=== PATIENT | female | born 1970 | race Caucasian/White ===

== ENCOUNTER 2020-10-19 15:00 | Outpatient (REF) | payer MEDICARE, OTHER, SELFPAY ==
--- NOTE | 2020-10-19 15:06 | XR_ITS ---
EXAMINATION: XR HIP, LEFT AP pelvis CLINICAL INFORMATION: Left sciatica. COMPARISON: None TECHNIQUE: Two views of the left hip. One view AP pelvis FINDINGS: AP PELVIS: There is normal symmetry of bilateral SI joints and hip joints. No visible acute fracture, dislocation or subluxation seen. The SI joints are symmetrical. LEFT HIP: There is no visible acute fracture, dislocation or subluxation seen. No bony erosive changes. The soft tissues are normal XR/XR hip LT w [id number] IMPRESSION: Unremarkable left hip and a AP pelvis exam.
== END 2020-10-19 15:01 | disposition home or self-care (01) ==
LOC: HO.HMGCX 15:00
PROVIDERS: Visit Provider Nurse Practitioner Family
DX: M54.30 Sciatica, unspecified side (principal)
CPT/HCPCS: 73502

== ENCOUNTER 2021-02-18 00:49 | Emergency (ER) | payer MEDICARE, OTHER, SELFPAY ==
[2021-02-18 01:29] VITALS: BP 159/82; PULSE 62; RESP 18; TEMP 36.7; O2SAT 96; BMI 20.9
[2021-02-18 03:02] VITALS: BP 142/78; PULSE 65; RESP 16; TEMP 36.8; O2SAT 100
--- NOTE | 2021-02-18 03:16 | ED_ITS ---
HPI - Nausea/Vomiting/Diarrhea General Chief complaint: Nausea/Vomiting/Diarrhea Stated complaint: nausea vomiting x 4 days Time Seen by Provider: 02/18/21 03:15 Source: patient Mode of arrival: EMS History of Present Illness HPI Narrative: This is a 50-year-old female without significant past medical history other than having had disc surgery x2, 1st at [facility], and then 2nd at [place] the latter was approximately 3 weeks ago and patient states that she has had poor p.o. intake since that time with noted nausea and vomiting for the past 3 days. She denies any cigarette smoking or alcohol intake but states that she has used THC products the last of which was today. She denies any contaminated food, fevers, abdominal pain, fecal/urinary incontinence. Related Data Previous Rx's Medication Instructions Recorded prednisone 20 mg tablet 20 mg PO DAILY 9 Days #18 tab 10/19/20 Allergies Allergy/AdvReac Type Severity Reaction Status Date / Time duloxetine [From CYMBALTA] Allergy Unknown UNKNOWN Verified 02/18/21 03:48 morphine [MORPHINE] Allergy Unknown HALLUCINATI Verified 02/18/21 03:48 ONS fentanyl [FENTANYL] AdvReac Unknown UNKNOWN Verified 02/18/21 03:48 ketorolac [From TORADOL] AdvReac Unknown UNKNOWN Verified 02/18/21 03:48 Review of Systems Review of Systems: Pertinent positives and negatives as stated in HPI 10 point review of systems is otherwise negative. [facility] Past Medical History Source: nursing notes reviewed Social History Social History Advance Directives: No Advance Directives Information Provided: No Patient : No Physical Exam Vital Signs: Vital Signs: Last Vital Signs Temp 98.2 F 02/18/21 03:02 Pulse 62 02/18/21 04:00 Resp 17 02/18/21 04:00 BP 101/73 02/18/21 04:00 Pulse Ox 100 02/18/21 04:00 Body Mass Index 20.9 VITAL SIGNS: Reviewed. GENERAL: Well developed, well nourished, in no acute distress. HEAD: Normocephalic/atraumatic EYES: PERRLA, EOMI OROPHARYNX: no oral lesions noted, posterior pharynx clear NECK: Supple, no adenopathy LUNGS: Normal breath sounds. No adventitious sounds or accessory muscle use. SpO2<100> CARDIOVASCULAR: Regular rate and rhythm without noted murmurs ABDOMEN: Soft, non-tender, non-distended with bowel sounds. BACK: Well-healed is incision to the lumbar spine without evidence erythema/induration/cellulitis/drainage MUSCULOSKELETAL: No tenderness, deformities, or effusions noted on gross inspection. EXTREMITIES: No cyanosis, clubbing or edema. SKIN: Inspection of the skin reveals no rashes NEUROLOGIC: Alert and oriented x 4. Strength and sensation to light touch were grossly intact x 4. Course Course Course Narrative: This is a 50-year-old female with history and clinical presentation suggestive of possible opioid withdrawal or viral gastroenteritis but doubt C diff. patient provided with Reglan, Benadryl, Zofran, Haldol. Review of all investigations negative for any acute findings other than positive ketones in the urine consistent with patient's history of nausea, vomiting. Suspect this may be a component of gastroenteritis. On re-evaluation patient s till feels nauseous and declining a p.o. trial. Signed out to Dr Jc. MDM - Nausea/Vomiting/Diarrhea Lab Data Result diagrams: 02/18/21 03:47 02/18/21 03:47 Labs: Lab Results 02/18/21 02/18/21 02/18/21 Range/Units 03:05 03:47 03:47 WBC 8.2 (4.8-10.8) X10*3/uL RBC 4.89 (4.20-5.50) X10*6/uL Hgb 13.4 (12.0-16.0) g/dl Hct 42.2 (37-47) % MCV 86.3 (80-98) fL MCH 27.4 (27.0-33.0) pg MCHC 31.8 (31.0-35.0) g/dl RDW 15.3 (11.0-16.0) % Plt Count 524 H (160-400) X10*3/uL MPV 9.8 (9.4-12.3) fL Immature Gran % (Auto) 0.2 (0.0-0.4) % Neut % (Auto) 85.7 H (45-73) % Lymph % (Auto) 10.7 L (20-40) % [place] % (Auto) 2.8 (2-11) % Eos % (Auto) 0.4 (0-4) % Baso % (Auto) 0.2 (0-2) % Lymph # (Auto) 0.9 L (1.2-4.9) X10*3/uL [place] # (Auto) 0.2 (0.1-1.2) X10*3/uL Eos # (Auto) 0.0 (0.0-0.4) X10*3/uL Baso # (Auto) 0.0 (0.0-0.2) X10*3/uL Abs Immat Gran (auto) 0.02 (0.00-0.03) X10*3/uL Absolute Neuts (auto) 7.1 (2.0-8.3) X10*3/uL Absolute Nucleated RBC 0.000 (0.0-0.012) X10*3/uL Nucleated RBC % (auto) 0.0 (0.0-0.2) /100WBC Sodium 142 (135-145) mmol/L Potassium 4.2 (3.3-5.1) mmol/L Chloride 103 (96-108) mmol/L Carbon Dioxide 20 L (22-29) mmol/L Anion Gap 23 H (12-20) BUN 13 (9-16) mg/dL Creatinine 0.83 (0.5-1.4) mg/dL Estim Creat Clear Calc 74.6 Estimated GFR > 60 Random Glucose 99 (60-115) mg/dL Calcium 10.5 H (8.4-10.2) mg/dL Total Bilirubin 0.5 (0.0-1.0) mg/dL AST 21 (5-31) U/L ALT 15 (0-31) U/L Alkaline Phosphatase 85 (39-117) U/L Total Protein 8.6 H (6.5-8.0) g/dL Albumin 5.6 H (3.5-5.0) g/dL Lipase 41 (8-78) U/L Urine Color YELLOW Urine Appearance CLEAR Urine pH 6.5 (5.0-8.0) Ur Specific [place] 1.020 (1.005-1.025) Urine Protein 1+ H (NEG-TRACE) MG/DL Urine Glucose (UA) NEG (NEG) MG/DL Urine Ketones >=80 (NEG) MG/DL Urine Blood NEG (NEG) Urine Nitrite NEG (NEG) Ur Leukocyte Esterase NEG (NEG) Urine RBC 1-4 (0) /HPF Urine WBC 0-2 (0-4) /HPF Ur Squamous Epith Cells 1+ /LPF Urine Bacteria TRACE /LPF Urine Mucus 3+ /LPF Ethyl Alcohol mg/dL 02/18/21 Range/Units 03:47 WBC (4.8-10.8) X10*3/uL RBC (4.20-5.50) X10*6/uL Hgb (12.0-16.0) g/dl Hct (37-47) % MCV (80-98) fL MCH (27.0-33.0) pg MCHC (31.0-35.0) g/dl RDW (11.0-16.0) % Plt Count (160-400) X10*3/uL MPV (9.4-12.3) fL Immature Gran % (Auto) (0.0-0.4) % Neut % (Auto) (45-73) % Lymph % (Auto) (20-40) % [place] % (Auto) (2-11) % Eos % (Auto) (0-4) % Baso % (Auto) (0-2) % Lymph # (Auto) (1.2-4.9) X10*3/uL [place] # (Auto) (0.1-1.2) X10*3/uL Eos # (Auto) (0.0-0.4) X10*3/uL Baso # (Auto) (0.0-0.2) X10*3/uL Abs Immat Gran (auto) (0.00-0.03) X10*3/uL Absolute Neuts (auto) (2.0-8.3) X10*3/uL Absolute Nucleated RBC (0.0-0.012) X10*3/uL Nucleated RBC % (auto) (0.0-0.2) /100WBC Sodium (135-145) mmol/L Potassium (3.3-5.1) mmol/L Chloride (96-108) mmol/L Carbon Dioxide (22-29) mmol/L Anion Gap (12-20) BUN (9-16) mg/dL Creatinine (0.5-1.4) mg/dL Estim Creat Clear Calc Estimated GFR Random Glucose (60-115) mg/dL Calcium (8.4-10.2) mg/dL Total Bilirubin (0.0-1.0) mg/dL AST (5-31) U/L ALT (0-31) U/L Alkaline Phosphatase (39-117) U/L Total Protein (6.5-8.0) g/dL Albumin (3.5-5.0) g/dL Lipase (8-78) U/L Urine Color Urine Appearance Urine pH (5.0-8.0) Ur Specific [place] (1.005-1.025) Urine Protein (NEG-TRACE) MG/DL Urine Glucose (UA) (NEG) MG/DL Urine Ketones (NEG) MG/DL Urine Blood (NEG) Urine Nitrite (NEG) Ur Leukocyte Esterase (NEG) Urine RBC (0) /HPF Urine WBC (0-4) /HPF Ur Squamous Epith Cells /LPF Urine Bacteria /LPF Urine Mucus /LPF Ethyl Alcohol < 10 mg/dL Discharge Plan Discharge Clinical Impression: Gastroenteritis Patient Disposition: Home, Self-Care Instructions: Gastroenteritis (ED) Additional Instructions: Return to the ER for any acute worsening of your symptoms. Prescriptions: No Action prednisone 20 mg tablet 20 mg PO DAILY 9 Days Qty: 18 RF: 0 Referrals: Physician,Unknown [Primary Care Provider] - 2 days
[2021-02-18 03:25] LABS: Glucose Urine UA NEG (NEG); Leukocyte Esterase Urine NEG (NEG); Nitrite Urine NEG (NEG); PH 6.5 (5.0-8.0); Urine Blood NEG (NEG); Urine Ketones >=80 MG/DL (NEG); Urine Protein 1+ MG/DL (NEG-TRACE)
[2021-02-18 03:38] LABS: Appearance Urine CLEAR; Color Urine YELLOW
[2021-02-18] MEDS: diphenhydrAMINE HCL 50 MG/ML VIAL 25 MG IVPUSH (03:49)
[2021-02-18] MEDS: ondansetron HCL 4 MG/2 ML VIAL IVPUSH ×2 (03:49→07:59)
[2021-02-18] MEDS: Metoclopramide HCl 10 MG/2 ML VIAL IVPUSH (03:49)
[2021-02-18] MEDS: 0.9 % Sodium Chloride 2,000 ML 999 ML IV (03:53)
[2021-02-18 03:54] LABS: MANUAL DIFF FLAG NO
[2021-02-18 03:58] LABS: Basophils Percent Auto 0.2 % (0-2); Eosinophils Percent Auto 0.4 % (0-4); Hematocrit 42.2 % (37-47); Hemoglobin 13.4 g/dl (12.0-16.0); Imm Gran Abs Auto 0.02 X10*3/uL (0.00-0.03); Imm Gran Pct Auto 0.2 % (0.0-0.4); Lymphocytes Absolute Auto 0.9 X10*3/uL (1.2-4.9); Lymphocytes Percent Auto 10.7 % (20-40); Mean Corpuscular HGB Conc 31.8 g/dl (31.0-35.0); Mean Corpuscular Hemoglobin 27.4 pg (27.0-33.0); Mean Corpuscular Volume 86.3 fL (80-98); Mean Platelet Volume 9.8 fL (9.4-12.3); Monocytes Absolute Auto 0.2 X10*3/uL (0.1-1.2); Monocytes Percent Auto 2.8 % (2-11); Neutrophils Absolute Auto 7.1 X10*3/uL (2.0-8.3); Neutrophils Percent Auto 85.7 % (45-73); Platelet Count 524 X10*3/uL (160-400); Red Blood Count 4.89 X10*6/uL (4.20-5.50); Red Cell Distribution Width 15.3 % (11.0-16.0); White Blood Count 8.2 X10*3/uL (4.8-10.8)
[2021-02-18 04:00] VITALS: BP 101/73; PULSE 62; RESP 17; O2SAT 100
[2021-02-18 04:09] LABS: Bacteria Urine TRACE /LPF; Mucus Urine 3+ /LPF; Squamous Epithelial Cell Urine 1+ /LPF; WBC Urine 0-2 /HPF (0-4)
[2021-02-18 04:25] LABS: Alanine Aminotransferase 15 U/L (0-31); Albumin Level 5.6 g/dL (3.5-5.0); Alkaline Phosphatase 85 U/L (39-117); Anion Gap 23 (12-20); Aspartate Amino Transferase 21 U/L (5-31); Bilirubin Total 0.5 mg/dL (0.0-1.0); Blood Urea Nitrogen 13 mg/dL (9-16); Calcium 10.5 mg/dL (8.4-10.2); Carbon Dioxide 20 mmol/L (22-29); Chloride 103 mmol/L (96-108); Creatinine Clr Calc Pharmacy 74.6; Estimated Glomerular Filt Rate > 60; Glucose Random 99 mg/dL (60-115); Lipase 41 U/L (8-78); Potassium 4.2 mmol/L (3.3-5.1); Sodium 142 mmol/L (135-145); Total Protein 8.6 g/dL (6.5-8.0)
[2021-02-18 04:26] LABS: Ethanol < 10 mg/dL
[2021-02-18] MEDS: Haloperidol Lactate 5 MG/ML VIAL 2.5 MG IVPUSH (04:57)
[2021-02-18] MEDS: HYDROmorphone HCl 0.5 MG/0.5 ML SYRINGE IVPUSH (07:59)
[2021-02-18 08:06] VITALS: BP 157/82; PULSE 59; RESP 18; O2SAT 98
[2021-02-18] MEDS: HYDROmorphone HCl 1 MG/ML SYRINGE IVPUSH (08:28)
[2021-02-18 08:29] VITALS: BP 137/79; PULSE 59; RESP 19; O2SAT 99
[2021-02-18 08:29] LABS: CDIFF Ag Negative (Negative); CDIFF Internal ctrl Dots and bkg OK (V); CDiff Toxin Negative (Negative)
[2021-02-18 08:49] LABS: Leukocytes Stool Qualitative NEGATIVE (NEGATIVE)
--- NOTE | 2021-02-18 09:03 | PC.NURSE ---
has a ride on the way, nad, skin wpd
--- NOTE | 2021-02-18 09:42 | PC.NURSE ---
vs 133/71 [id number]
== END 2021-02-18 09:42 | disposition home or self-care (01) ==
PROVIDERS: Student in an Organized Health Care Education/Training Program; Emergency Provider Emergency Medicine Emergency Medical Services
DX: K52.9 Noninfective gastroenteritis and colitis, unspecified (principal); R11.2 Nausea with vomiting, unspecified; Z79.899 Other long term (current) drug therapy
CPT/HCPCS: 36415; 80053; 81001; 82077; 83690; 85025; 87045; 87046; 87324; 87449; 89055; 96365; 96375; 96376; 99284; J1170; J1200; J2405; J2765

== ENCOUNTER 2021-04-23 02:17 | Inpatient (IN) | payer MEDICARE, OTHER, SELFPAY ==
--- NOTE | 2021-04-23 02:38 | ED.GENADULT ---
HPI - General Adult General Chief complaint: Psychiatric Symptoms Stated complaint: Drug Use Time Seen by Provider: 04/23/21 02:36 Source: patient and EMS Mode of arrival: EMS Limitations: altered mental status History of Present Illness HPI narrative: Patient is brought to the emergency room by EMS. Patient called because she thought there were 2 persons in her house trying to kill her. EMS did not find anyone in the house. Patient is known to take multiple medications including Dilaudid for chronic back pain. Patient has been seen in this facility for crisis once before. Patient denies suicidal or homicidal ideation, however patient is very paranoid. Related Data Home Medications Medication Instructions Recorded Confirmed bupropion HCl 100 mg tablet,12 hr 1 tab PO QAM 04/23/21 04/23/21 sustained-release clonazepam 1 mg tablet mg PO 04/23/21 04/23/21 hydromorphone 2 mg tablet 0.5 - 1 tab PO Q6H PRN 04/23/21 04/23/21 tizanidine 4 mg tablet 1 tab PO QID PRN 04/23/21 04/23/21 zolpidem 10 mg tablet 0.5 - 1 tab PO BEDTIME PRN 04/23/21 04/23/21 Previous Rx's Medication Instructions Recorded prednisone 20 mg tablet 20 mg PO DAILY 9 Days #18 tab 10/19/20 prochlorperazine 25 mg rectal 25 mg AR Q12H PRN 6 Days #12 ea 02/18/21 suppository (Compazine) Allergies Allergy/AdvReac Type Severity Reaction Status Date / Time duloxetine [From CYMBALTA] Allergy Unknown UNKNOWN Verified 02/18/21 03:48 morphine [MORPHINE] Allergy Unknown HALLUCINATI Verified 02/18/21 03:48 ONS fentanyl [FENTANYL] AdvReac Unknown UNKNOWN Verified 02/18/21 03:48 ketorolac [From TORADOL] AdvReac Unknown UNKNOWN Verified 02/18/21 03:48 Review of Systems Review of Systems: Constitutional : No Weight loss, No Fever, No Chills, No Night Sweats, No Fatigue, No Malaise ENT/Mouth : No Hearing loss, No Ear Pain, No Nasal Congestion, No Sinus Pain, No Hoarseness, No sore throat, No Rhinorrhea, No Swallowing Difficulty Eyes: No Eye Pain, No Swelling, No Redness, No Foreign Body, No Discharge, No Vision Changes Cardiovascular : No Chest Pain, No SOB, No Dyspnea on Exertion, No Orthopnea, No Edema, No Palpitations Respiratory : No Cough, No Sputum, No Wheezing, No Smoke Exposure, No Dyspnea Gastrointestinal : No Nausea, No Vomiting, No Diarrhea, No Constipation, No abdominal Pain, No Hematochezia, No Melena Genitourinary : no irregular bleeding, No Dysuria, No Urinary Frequency, No Hematuria, No Urinary Incontinence, No Urgency, No Flank Pain, No Urinary Flow Changes, No Hesitancy Musculoskeletal : No joint pain, No Myalgias, No Joint Swelling Skin : No Skin Lesions, No rash Neuro : No Weakness, No Numbness, No Paresthesias, No Loss of Consciousness, No Dizziness, No Headache Psych : Very anxious, thinks somebody wants to kill her, thinks people are in her house Heme/Lymph: No Bruising, No Bleeding,No Lymphadenopathy Endocrine : No Polyuria, No Polydipsia, No Temperature Intolerance PMFSH Social History Social History Advance Directives: No Advance Directives Information Provided: Yes Patient : No Physical Exam Vital Signs: Vital Signs: Last Vital Signs Temp 99.1 F 04/23/21 03:05 Pulse 113 H 04/23/21 03:05 Resp 16 04/23/21 03:05 BP 125/70 04/23/21 03:05 Pulse Ox 97 04/23/21 03:05 Body Mass Index 22.6 Const: Other: Appearance: Alert. Very anxious Eyes: Pupils equal, round and reactive to light. ENT: Pharynx normal. Neck: Normal inspection. Neck supple. No lymph nodes noted. No crepitus CVS: Normal heart rate and rhythm. Pulses normal. Normal S1 and S2 Respiratory: No respiratory distress. Breath sounds normal. No Wheezing. No rales Abdomen: Soft and nontender. No rigidity. No distention. good BS x4 Skin: Skin warm and dry. Normal skin color. Normal skin turgor. Extremities: No lower extremity edema. Neuro: no motor deficit. No sensory deficit. Moving all extermities. No slurred speech. Cranial nerves 2-12 grossly intact Medical Decision Making Lab Data Result diagrams: 04/23/21 05:23 04/23/21 05:23 Labs: Lab Results 04/23/21 04/23/21 04/23/21 Range/Units 05:23 05:23 05:23 WBC 9.5 (4.8-10.8) X10*3/uL RBC 3.54 L D (4.20-5.50) X10*6/uL Hgb 9.6 L D (12.0-16.0) g/dl Hct 29.0 L D (37-47) % MCV 81.9 (80-98) fL MCH 27.1 (27.0-33.0) pg MCHC 33.1 (31.0-35.0) g/dl RDW 14.3 (11.0-16.0) % Plt Count 371 D (160-400) X10*3/uL MPV 9.3 L (9.4-12.3) fL Immature Gran % (Auto) 0.2 (0.0-0.4) % Neut % (Auto) 84.6 H (45-73) % Lymph % (Auto) 8.5 L (20-40) % [place] % (Auto) 6.4 (2-11) % Eos % (Auto) 0.0 (0-4) % Baso % (Auto) 0.3 (0-2) % Lymph # (Auto) 0.8 L (1.2-4.9) X10*3/uL [place] # (Auto) 0.6 (0.1-1.2) X10*3/uL Eos # (Auto) 0.0 (0.0-0.4) X10*3/uL Baso # (Auto) 0.0 (0.0-0.2) X10*3/uL Abs Immat Gran (auto) 0.02 (0.00-0.03) X10*3/uL Absolute Neuts (auto) 8.0 (2.0-8.3) X10*3/uL Absolute Nucleated RBC 0.000 (0.0-0.012) X10*3/uL Nucleated RBC % (auto) 0.0 (0.0-0.2) /100WBC Sodium 136 (135-145) mmol/L Potassium 3.5 (3.3-5.1) mmol/L Chloride 100 (96-108) mmol/L Carbon Dioxide 27 (22-29) mmol/L Anion Gap 13 (12-20) BUN 7 L (9-16) mg/dL Creatinine 0.71 (0.5-1.4) mg/dL Estim Creat Clear Calc 87.7 Estimated GFR > 60 Random Glucose 106 (60-115) mg/dL Calcium 8.7 D (8.4-10.2) mg/dL Total Bilirubin 0.3 (0.0-1.0) mg/dL Direct Bilirubin < 0.2 (0.0-0.5) mg/dL AST 11 D (5-31) U/L ALT 8 (0-31) U/L Alkaline Phosphatase 88 (39-117) U/L Total Protein 5.7 L D (6.5-8.0) g/dL Albumin 3.8 D (3.5-5.0) g/dL Ethyl Alcohol < 10 mg/dL Discharge Plan Discharge Clinical Impression: Delusion Prescriptions: No Action prochlorperazine [Compazine] 25 mg suppository 25 mg AR Q12H PRN (Reason: nausea and vomiting) 6 Days Qty: 12 RF: 0 tizanidine 4 mg tablet 1 tab PO QID PRN (Reason: muscle spasm) RF: 0 clonazepam 1 mg tablet PO RF: 0 bupropion HCl 100 mg tablet sustained-release 12 hr 1 tab PO QAM RF: 0 hydromorphone 2 mg tablet 0.5 - 1 tab PO Q6H PRN (Reason: pain) RF: 0 zolpidem 10 mg tablet 0.5 - 1 tab PO BEDTIME PRN (Reason: insomnia) RF: 0 prednisone 20 mg tablet 20 mg PO DAILY 9 Days Qty: 18 RF: 0
[2021-04-23 03:05] VITALS: BP 125/70; PULSE 113; RESP 16; TEMP 37.3; O2SAT 97; BMI 22.6
[2021-04-23 05:27] LABS: Basophils Percent Auto 0.3 % (0-2); Hemoglobin 9.6 g/dl (12.0-16.0); Imm Gran Abs Auto 0.02 X10*3/uL (0.00-0.03); Imm Gran Pct Auto 0.2 % (0.0-0.4); Lymphocytes Absolute Auto 0.8 X10*3/uL (1.2-4.9); Lymphocytes Percent Auto 8.5 % (20-40); MANUAL DIFF FLAG NO; Mean Corpuscular HGB Conc 33.1 g/dl (31.0-35.0); Mean Corpuscular Hemoglobin 27.1 pg (27.0-33.0); Mean Corpuscular Volume 81.9 fL (80-98); Mean Platelet Volume 9.3 fL (9.4-12.3); Monocytes Absolute Auto 0.6 X10*3/uL (0.1-1.2); Monocytes Percent Auto 6.4 % (2-11); Neutrophils Percent Auto 84.6 % (45-73); Platelet Count 371 X10*3/uL (160-400); Red Blood Count 3.54 X10*6/uL (4.20-5.50); Red Cell Distribution Width 14.3 % (11.0-16.0); White Blood Count 9.5 X10*3/uL (4.8-10.8)
[2021-04-23 05:54] LABS: Ethanol < 10 mg/dL
[2021-04-23 05:57] LABS: Alanine Aminotransferase 8 U/L (0-31); Albumin Level 3.8 g/dL (3.5-5.0); Alkaline Phosphatase 88 U/L (39-117); Anion Gap 13 (12-20); Aspartate Amino Transferase 11 U/L (5-31); Bilirubin Direct < 0.2 mg/dL (0.0-0.5); Bilirubin Total 0.3 mg/dL (0.0-1.0); Blood Urea Nitrogen 7 mg/dL (9-16); Calcium 8.7 mg/dL (8.4-10.2); Carbon Dioxide 27 mmol/L (22-29); Chloride 100 mmol/L (96-108); Creatinine Clr Calc Pharmacy 87.7; Estimated Glomerular Filt Rate > 60; Glucose Random 106 mg/dL (60-115); Potassium 3.5 mmol/L (3.3-5.1); Sodium 136 mmol/L (135-145); Total Protein 5.7 g/dL (6.5-8.0)
[2021-04-23 09:26] VITALS: BP 113/62; PULSE 77; RESP 18; TEMP 36.7; O2SAT 100
--- NOTE | 2021-04-23 10:03 | PC.NURSE ---
[facility] consult sent via online referral system. Pt is resting in stretcher, no distress noted, rr even and unlabored. Awaiting [facility] arrival
[2021-04-23] MEDS: HYDROmorphone HCl 2 MG TABLET PO ×3 (10:54→21:18)
[2021-04-23 11:04] VITALS: BP 164/78; PULSE 67; RESP 16; TEMP 36.7; O2SAT 100
[2021-04-23 12:15] LABS: Glucose Urine UA NEG (NEG); Leukocyte Esterase Urine 3+ (NEG); Nitrite Urine POS (NEG); Specific Gravity - Urine <= 1.005 (1.005-1.025); UACC Culture Trigger YES; Urine Blood TRACE (NEG); Urine Ketones NEG (NEG); Urine Protein NEG (NEG-TRACE)
[2021-04-23 12:16] LABS: Appearance Urine CLOUDY; Color Urine STRAW
[2021-04-23 12:18] LABS: UPreg QC Valid YES; Urine Pregnancy NEGATIVE (NEGATIVE)
[2021-04-23 12:26] LABS: Bacteria Urine 4+ /LPF; RBC Urine 0-2 /HPF (0); Squamous Epithelial Cell Urine 3+ /LPF; WBC Urine 30-49 /HPF (0-4)
[2021-04-23 12:35] LABS: Amphetamine Screen Urine Not Detected (Not Detect); Barbiturates, Urine Not Detected (Not Detect); Benzodiazepines Screen Urine Not Detected (Not Detect); Cannabinoid Screen Urine POSITIVE (Not Detect); Cocaine Screen Urine Not Detected (Not Detect); Opiate Screen Urine POSITIVE (Not Detect); Phencyclidine Screen Urine Not Detected (Not Detect)
[2021-04-23 12:56] LABS: OBS Int Ctl Valid YES; OBS1 NEGATIVE (NEGATIVE)
--- NOTE | 2021-04-23 13:18 | PC.NURSE ---
Pt appears to be responding to internal stimuli- states the planes have been released, I tried to save you but its too late . Pt is cooperative and calm. Awaiting MALIK womack
[2021-04-23 19:13] VITALS: BP 145/76; PULSE 83; RESP 16; TEMP 36; O2SAT 98
[2021-04-23] MEDS: Phenazopyridine HCL 200 MG TABLET PO (23:55)
[2021-04-23] MEDS: Nitrofurantoin Monohyd/M-Cryst 100 MG CAPSULE PO (23:55)
--- NOTE | 2021-04-24 00:28 | PC.NURSE ---
PT AMBULATORY TO BATHROOM WITH DIFFICULTY DUE TO BACK PAIN. PT REPORTS SHE HAS A HERNIATED DISC.
[2021-04-24 00:40] LABS: Influenza A PCR NEGATIVE (Negative); Influenza B PCR NEGATIVE (Negative); Resp Syncy Virus RNA Qual PCR NEGATIVE (Negative); SARS COV2 PCR INHOUSE NEGATIVE (Negative)
--- NOTE | 2021-04-24 01:11 | PC.NURSE ---
PT GIVEN SANDWICH AND ALEKSANDR TREY. ALSO STARTED ON ANTIBIOTICS FOR A UTI.
[2021-04-24] MEDS: Zolpidem Tartrate 5 MG TABLET PO ×2 (01:49→21:36)
[2021-04-24] MEDS: TiZANidine HCL 4 MG TABLET PO (01:49)
--- NOTE | 2021-04-24 02:11 | PC.NURSE ---
PT ASKING FOR AN EXTRA DOSE OF OXY, ASKING FOR HER NEXT DOSE EARLY. PT KNEELING UPRIGHT IN BED, WITH GOOD BALANCE. PT ASKED TO SIT DOWN, FOR SAFETY. PT DOES NOT SEEM TO BE IN EXCRUCIATING PAIN LIKE EARLIER.
--- NOTE | 2021-04-24 06:20 | PC.NURSE ---
PT HAS BEEN SLEEPING PAST 2-3 HOURS FOLLOWING AMBIEN.
--- NOTE | 2021-04-24 07:19 | PC.NURSE ---
Patient is currently asleep in bed in no distress. Respirations are even and nonlabored
--- NOTE | 2021-04-24 08:10 | PC.NURSE ---
Patient is awake and eating breakfast. Pt requesting pain medication for her back that she rates a 10/10
[2021-04-24 08:25] VITALS: BP 149/72; PULSE 85; RESP 17; TEMP 36.9; O2SAT 98
[2021-04-24] MEDS: HYDROmorphone HCl 2 MG TABLET PO ×3 (08:37→21:36)
[2021-04-24] MEDS: Nitrofurantoin Monohyd/M-Cryst 100 MG CAPSULE PO ×2 (08:38→21:35)
--- NOTE | 2021-04-24 10:04 | PC.NURSE ---
Patient sitting up in bed in no distress.
[2021-04-24 15:19] VITALS: BP 157/98; PULSE 100; RESP 18; TEMP 37; O2SAT 99
--- NOTE | 2021-04-24 17:40 | PC.NURSE ---
dolores relayed nurse report to t/w in regard to patient history
[2021-04-25] MEDS: clonazePAM 1 MG TABLET 2 MG PO (01:30)
--- NOTE | 2021-04-25 06:29 | PC.NURSE ---
Patient stayed awake until 314,
--- NOTE | 2021-04-25 06:32 | PC.NURSE ---
Patient stayed awake between 0045 to 0300, no distress observed/reported, patient gait is very unsteady uses walker d/t degenerative disc and per patient's family surgery scheduled today, med compliant, very fixated on her klonopin dose, requested for klonopin for sleep in addition to scheduled Ambien, based on pharmacy record provider ordered Klonopin 2 mg/administered as ordered with + effect, patient's disposition is section 12 inpatient bed search, VSS, behavior calm with paranoid thought process, will continue to monitor.
[2021-04-25 06:45] VITALS: BP 114/68; PULSE 83; RESP 15; TEMP 37; O2SAT 99
--- NOTE | 2021-04-25 07:37 | PC.NURSE ---
patient appears to remain at rest at present, respirations are even and unlabored. patient appears in no distress.
[2021-04-25] MEDS: Ondansetron ODT 4 MG TAB.RAPDIS TRANSLINGU ×2 (08:43→21:58)
--- NOTE | 2021-04-25 09:41 | PC.NURSE ---
patient experiencing 2-3 episodes of vomiting, patient reports this is new to her (not the norm) pursued medication for patient but vomiting persisted past zofran administration
[2021-04-25] MEDS: diphenhydrAMINE HCL 50 MG/ML VIAL IM (11:00)
[2021-04-25] MEDS: Metoclopramide HCl 10 MG/2 ML VIAL IM (11:00)
[2021-04-25 11:18] LABS: MANUAL DIFF FLAG NO
[2021-04-25 11:22] LABS: Basophils Percent Auto 0.7 % (0-2); Hematocrit 38.7 % (37-47); Hemoglobin 12.2 g/dl (12.0-16.0); Imm Gran Abs Auto 0.02 X10*3/uL (0.00-0.03); Imm Gran Pct Auto 0.3 % (0.0-0.4); Lymphocytes Absolute Auto 1.1 X10*3/uL (1.2-4.9); Lymphocytes Percent Auto 18.2 % (20-40); Mean Corpuscular HGB Conc 31.5 g/dl (31.0-35.0); Mean Corpuscular Hemoglobin 26.6 pg (27.0-33.0); Mean Corpuscular Volume 84.5 fL (80-98); Mean Platelet Volume 9.9 fL (9.4-12.3); Monocytes Absolute Auto 0.4 X10*3/uL (0.1-1.2); Monocytes Percent Auto 6.4 % (2-11); Neutrophils Absolute Auto 4.4 X10*3/uL (2.0-8.3); Neutrophils Percent Auto 74.4 % (45-73); Platelet Count 567 X10*3/uL (160-400); Red Blood Count 4.58 X10*6/uL (4.20-5.50); Red Cell Distribution Width 14.3 % (11.0-16.0)
[2021-04-25 11:46] LABS: Alanine Aminotransferase 12 U/L (0-31); Alkaline Phosphatase 104 U/L (39-117); Anion Gap 16 (12-20); Aspartate Amino Transferase 13 U/L (5-31); Bilirubin Total 0.4 mg/dL (0.0-1.0); Blood Urea Nitrogen 8 mg/dL (9-16); Carbon Dioxide 28 mmol/L (22-29); Chloride 103 mmol/L (96-108); Estimated Glomerular Filt Rate > 60; Glucose Random 119 mg/dL (60-115); Lipase 29 U/L (8-78); Magnesium 2.2 mg/dL (1.6-2.6); Sodium 143 mmol/L (135-145)
[2021-04-25 11:49] LABS: Glucose Urine UA NEG (NEG); Leukocyte Esterase Urine TRACE (NEG); Nitrite Urine POS (NEG); PH 6.5 (5.0-8.0); UACC Culture Trigger YES; Urine Blood 2+ (NEG); Urine Ketones 40 MG/DL (NEG); Urine Protein 1+ MG/DL (NEG-TRACE)
[2021-04-25 11:53] LABS: Appearance Urine HAZY; Color Urine YELLOW
[2021-04-25 11:54] LABS: Albumin Level 4.5 g/dL (3.5-5.0); Calcium 9.8 mg/dL (8.4-10.2); Total Protein 7.1 g/dL (6.5-8.0)
[2021-04-25 11:58] LABS: Influenza A PCR NEGATIVE (Negative); Influenza B PCR NEGATIVE (Negative); Resp Syncy Virus RNA Qual PCR NEGATIVE (Negative); SARS COV2 PCR INHOUSE NEGATIVE (Negative)
[2021-04-25 12:05] VITALS: RESP 16
[2021-04-25] MEDS: HYDROmorphone HCl 2 MG/ML VIAL IM (12:05)
[2021-04-25 12:11] LABS: Bacteria Urine TRACE /LPF; Squamous Epithelial Cell Urine 1+ /LPF
[2021-04-25 12:12] LABS: Mucus Urine 2+ /LPF
[2021-04-25] MEDS: Metoclopramide HCl 10 MG TABLET PO (17:01)
[2021-04-25 17:54] VITALS: BP 181/76; PULSE 62; RESP 18; TEMP 37.1; O2SAT 100
[2021-04-25] MEDS: HYDROmorphone HCl 2 MG TABLET PO (18:06)
--- NOTE | 2021-04-25 18:16 | PC.ADMIT ---
Nursing admission note: 50 year old female DX: Unspecified schizophrenia spectrum and other psychotic disorder. Patient A+O x3, engaged easily, blunted affect. Presented to ED via [employer] police after calling them herself reporting that men with guns were going to kill her. Patient referred for treatment by CARE team due to paranoia, VH and difficulty sleeping. Patient responded to questions appropriately, did not present as delusional or paranoid. Denies A/V hallucinations at this time. Denies SI/HI plan or intent at this time. Admitted to unit on section 12b. Does not believe she needs to be here at this time. COVID negative. TOX screen positive for opiate and cannabis. Denies history of alcohol abuse. Denies treatment for recovery services. Does have out patient providers. Denies current withdrawal sx. Patient denies legal history. NKDA. Patient vomited shortly after arrival to unit. Medical history included IBS, lactose intolerance and spastic colon. See nursing assessment/crisis evaluation for complete details.
[2021-04-25] MEDS: TiZANidine HCL 4 MG TABLET PO (18:59)
[2021-04-25] MEDS: Perphenazine 4 MG TABLET PO (19:00)
[2021-04-25] MEDS: HaloperidoL 5 MG TABLET PO (21:58)
--- NOTE | 2021-04-25 23:10 | PC.NURSE ---
given haldol and zofran due to continued vomiting. 3 incidents since 1899 only one episode witnessed. when approached to give antibiotic reported she was ''too tired to take''
[2021-04-26] MEDS: clonazePAM 0.5 MG TABLET PO ×3 (01:40→20:22)
[2021-04-26] MEDS: Metoclopramide HCl 10 MG TABLET PO (01:40)
[2021-04-26] MEDS: HYDROmorphone HCl 2 MG TABLET PO ×4 (01:40→23:06)
[2021-04-26 06:00] VITALS: BP 175/77; PULSE 61; RESP 16; TEMP 36.7; O2SAT 100
[2021-04-26 07:44] LABS: D Dimer 492 NG/ML
[2021-04-26 07:45] LABS: Estimated Average Glucose 111 mg/dL; Hemoglobin A1c % 5.5 %
[2021-04-26 07:59] LABS: Cholesterol 167 mg/dL; HDL Cholesterol 53 mg/dL; LDL Cholesterol Calculated 96 mg/dl; Triglycerides 93 mg/dL
[2021-04-26 08:21] LABS: Free T4 (Free Thyroxine) 1.18 ng/dL (0.71-1.85); TSH reflex Free T4 0.46 uIU/mL (0.32-4.0); Thyroid Stimulating Hormone 0.42 uIU/mL (0.32-4.0)
[2021-04-26] MEDS: TiZANidine HCL 4 MG TABLET PO ×4 (10:16→20:22)
[2021-04-26] MEDS: buPROPion HCl XL 150 MG TAB.ER.24H PO (10:16)
[2021-04-26] MEDS: Perphenazine 4 MG TABLET PO ×2 (10:16→15:34)
[2021-04-26] MEDS: Nitrofurantoin Monohyd/M-Cryst 100 MG CAPSULE PO ×2 (10:16→20:22)
[2021-04-26 11:10] LABS: Folate 17.8 ng/mL (> or = 4.0); Vitamin B12 390 pg/mL (200-900)
[2021-04-26] MEDS: Simethicone 80 MG TAB.CHEW PO ×2 (13:26→17:29)
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
[2021-04-26] MEDS: Perphenazine 2 MG TABLET 6 MG PO (20:22)
[2021-04-26] MEDS: Loperamide HCl 2 MG CAPSULE PO (20:22)
[2021-04-26] MEDS: Zolpidem Tartrate 5 MG TABLET PO (20:23)
[2021-04-26 21:00] VITALS: BP 128/62; PULSE 80; TEMP 36.7; O2SAT 100
[2021-04-27] MEDS: Perphenazine 2 MG TABLET 6 MG PO ×2 (05:46→14:50)
--- NOTE | 2021-04-27 05:49 | PC.NURSE ---
requested that trilafon be given at this time.
[2021-04-27 08:37] VITALS: BP 165/76; PULSE 61; RESP 16; TEMP 36.8; O2SAT 100
[2021-04-27] MEDS: Simethicone 80 MG TAB.CHEW 160 MG PO ×2 (08:40→12:16)
[2021-04-27] MEDS: TiZANidine HCL 4 MG TABLET PO ×2 (08:40→12:16)
[2021-04-27] MEDS: Nitrofurantoin Monohyd/M-Cryst 100 MG CAPSULE PO (08:40)
[2021-04-27] MEDS: HYDROmorphone HCl 2 MG TABLET PO ×2 (08:48→14:50)
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
--- NOTE | 2021-04-27 17:44 | PC.NURSE ---
PT aware and ready for discharge. Pt affect bright, reports mood as good. PT denies SI/HI, denies AVH. PT declined for staff to schedule follow up appointment with her PCP, she states she will call and arrange an appointment herself, PT encouraged to call tomorrow to schedule an appointment. PT belongings returned, discharge education complete, all questions answered. PT brought to main entrance via wheelchair.
== END 2021-04-27 17:44 | disposition home or self-care (01) | DRG 885 ==
LOC: HO.ED 04-24 17:37 → HO.PADLT16 04-25 16:23
PROVIDERS: Clinical Nurse Specialist Psychiatric/Mental Health, Adult; Physician Assistant Medical; Admitting Provider Psychiatry & Neurology Psychiatry; Emergency Provider Emergency Medicine; Visit Provider Social Worker
DX: F22 Delusional disorders (principal); N39.0 Urinary tract infection, site not specified; B96.20 Unspecified Escherichia coli [E. coli] as the cause of diseases classified elsewhere; Z20.822 Contact with and (suspected) exposure to COVID-19; Z88.5 Allergy status to narcotic agent; Z79.899 Other long term (current) drug therapy
CPT/HCPCS: 0241U; 36415; 80048; 80053; 80061; 80076; 80307; 81001; 81025; 82077; 82272; 82607; 82746; 83036; 83690; 83735; 84439; 84443; 85025; 85379; 87086; 87088; 87186; 99285; J1170; J1200; J2765

== ENCOUNTER → 2021-09-25 09:19 | Outpatient (BNVA) | payer MEDICARE, OTHER, SELFPAY | PROVIDERS: Visit Provider Internal Medicine | DX: M54.16 Radiculopathy, lumbar region (principal); M96.1 Postlaminectomy syndrome, not elsewhere classified | CPT/HCPCS: 99202 ==

== ENCOUNTER 2021-10-11 06:08 | Outpatient (REF) | payer MEDICARE, OTHER, SELFPAY ==
--- NOTE | ~2021-10-11 | FL_ITS ---
EXAMINATION: XR FLUOROSCOPY WITH IMAGES CLINICAL INFORMATION: Radiculopathy, lumbar region. Left COMPARISON: None. TECHNIQUE: Fluoroscopy performed by Dr. Yossi Avitia. Fluoroscopy time: 0.4 minutes DAP: 0.560 Gycm2 Images: 3 FINDINGS: [place] and contrast are seen from transforaminal injections left side L4 and L5. FL/FL guidance in treatment room IMPRESSION: Left-sided transforaminal injections.
== END 2021-10-11 06:09 | disposition home or self-care (01) ==
LOC: HO.RADIR 06:08
PROVIDERS: Visit Provider Internal Medicine
DX: M54.16 Radiculopathy, lumbar region (principal); M96.1 Postlaminectomy syndrome, not elsewhere classified
CPT/HCPCS: 64483; 64484; J1100; Q9967

== ENCOUNTER 2021-10-25 08:08 | Inpatient (IN) | payer MEDICARE, OTHER, SELFPAY ==
[2021-10-25] VITALS (7 sets, daily range): BP systolic 131–156; BP diastolic 60–84; PULSE 92–97; RESP 12–20; TEMP 36.5; O2SAT 92–99; BMI 17.7
--- NOTE | 2021-10-25 08:44 | ED_ITS ---
HPI - General Adult General Chief complaint: Altered Mental Status <GILMA Crooks - Last Filed: 10/25/21 16:37> Stated complaint: weight loss confusion <GILMA Crooks Last Filed: 10/25/21 16:37> Time Seen by Provider: 10/25/21 08:34 <GILMA Crooks Last Filed: 10/25/21 16:37> Source: patient <GILMA Crooks Last Filed: 10/25/21 16:37> Mode of arrival: ambulatory <GILMA Crooks - Last Filed: 10/25/21 16:37> Limitations: altered mental status <GILMA Crooks Last Filed: 10/25/21 16:37> History of Present Illness HPI narrative: 51 y/o female with history of panic attacks, chronic lumbar radiculopathy w/ sciatica s/p recent injection, insomnia, anxiety, recurrent UTI's w/ delusions who presents to the ER with hallucinations. Patient lives at home with her son and boyfriend who helps provide the history. Patient reports hallucinations but she does not know how long they have been happening for. She talked with her PCP who recommended she come to the ER for evaluation of another UTI. Patient reports seeing vicious animals. She has full conversations with people who are not present. She denies UTI symptoms and reports she never gets symptoms when she has an infection. No fevers but reports chills and rigors at home. <GILMA Crooks - Last Filed: 10/25/21 16:37> MD complaint: hallucinations and rebeca <GILMA Crooks Last Filed: 10/25/21 16:37> Onset (ago): unknown <GILMA Crooks Last Filed: 10/25/21 16:37> Severity: similar to prior episodes <GILMA Crooks Last Filed: 10/25/21 16:37> Associated symptoms: confusion, fever/chills, headaches, loss of appetite, malaise and weakness <GILMA Crooks Last Filed: 10/25/21 16:37> Treatments prior to arrival: none <GILMA Crooks Last Filed: 10/25/21 16:37> Related Data Home medications: Home Medications Medication Instructions Recorded Confirmed hydromorphone 2 mg tablet 0.5 - 1 tab PO Q6H PRN 04/23/21 10/11/21 tizanidine 4 mg tablet 1 tab PO QID PRN 04/23/21 10/25/21 zolpidem 10 mg tablet 0.5 - 1 tab PO BEDTIME PRN 04/23/21 10/25/21 clonazepam 0.5 mg tablet 1 mg PO BID PRN 10/25/21 10/25/21 clonazepam 0.5 mg tablet 1.5 mg BEDTIME 10/25/21 10/25/21 Previous Rx's Medication Instructions Recorded bupropion HCl 150 mg 24 hr tablet, 150 mg PO DAILY #30 tab 04/27/21 extended release nitrofurantoin 100 mg PO Q12H #14 cap 04/27/21 monohydrate/macrocrystals 100 mg capsule perphenazine 4 mg tablet 4 mg PO TID #90 tab 04/27/21 simethicone 80 mg chewable tablet 160 mg PO QIDWMHS #90 tab 04/27/21 (Gas Relief (simethicone)) <GILMA Crooks - Last Filed: 10/25/21 16:37> Allergies/adverse reactions: Allergies Allergy/AdvReac Type Severity Reaction Status Date / Time duloxetine [From CYMBALTA] Allergy Unknown UNKNOWN Verified 10/11/21 08:01 morphine [MORPHINE] Allergy Unknown HALLUCINATI Verified 10/11/21 08:01 ONS Phenylpiperazine AdvReac Severe hallucinati Verified 10/11/21 08:01 Antidepressant ons Tetracyclic Antidepressants AdvReac Severe hallucinati Verified 10/11/21 08:01 ons fentanyl [FENTANYL] AdvReac Unknown UNKNOWN Verified 10/11/21 08:01 ketorolac [From TORADOL] AdvReac Unknown UNKNOWN Verified 10/11/21 08:01 <GILMA Crooks - Last Filed: 10/25/21 16:37> Review of Systems Review of Systems: Constitutional: No Fever, + Chills ENT/Mouth: No sore throat, No Rhinorrhea, No Swallowing Difficulty Cardiovascular: No Chest Pain, No SOB, No Orthopnea, No Edema Respiratory: No Cough, No Sputum, No Wheezing, No dyspnea Gastrointestinal: + Nausea, No Vomiting, No Diarrhea, No abdominal Pain, No Hematochezia, No Melena Genitourinary: No Dysuria, No Urinary Frequency, No Hematuria Musculoskeletal: No joint pain, No Myalgias Skin: No Skin Lesions, No rash Neuro: + Weakness, No Numbness, No Dizziness, + Headache Psych: +Anxiety/Panic, + Depression, +VH, No AH, +delusions Heme/Lymph: No Bruising, No Lymphadenopathy Endocrine: No Polyuria, No Polydipsia <GILMA Crooks - Last Filed: 10/25/21 16:37> [facility] Past Medical History Medical History: Medical History (Updated 10/25/21 @ 16:37 by GILMA Crooks) Anal fissure Anemia Anxiety Cervical radiculitis Cervical spinal cord compression Gonsalves hemangioma Chronic diarrhea Chronic narcotic use Chronic night sweats Chronic pain Contact dermatitis Cough Depression Dysconjugate gaze Dysuria Failed back surgical syndrome Fibromyalgia Gastric stress ulcer Gluteal pain Irritable bowel syndrome Left rib fracture Leg weakness Leukocytosis Low back pain Low ferritin Lumbar radiculitis Lumbar radiculopathy, chronic Medication side effects Mental status change resolved Muscle spasm Neck pain Panic attacks Paralysis Paresthesia of right upper limb 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 Pharyngitis Phlebitis Plantar wart Presbycusis Pyogenic granuloma Rash Right cervical radiculopathy Right elbow pain Sleep disturbance Social anxiety disorder Tachycardia Tubular adenoma Underweight Use of opiates for therapeutic purposes Vaginal discharge Vaginitis Viral gastroenteritis Vitamin D deficiency Yeast vaginitis <GILMA Crooks - Last Filed: 10/25/21 16:37> Surgical History: Surgical History (Updated 09/25/21 @ 14:29 by Kishan Wilkes) H/O colectomy H/O endoscopy H/O laparoscopy Hx of colonoscopy S/P cervical discectomy <GILMA Crooks - Last Filed: 10/25/21 16:37> Social History Social History: Social History Household Members: Significant Other and Family Household Members Other:: 2 Housing: Condominium Do you presently have visiting nurse or other home services: No Alcohol intake: unknown Patient Tobacco Use Status: Never used Tobacco Second Hand Smoke Exposure: No Substance Use Type: Prescription Drugs Advance Directives: No Advance Directives Information Provided: No Healthcare Proxy: No Guardian: No Patient : No service: No Sexual orientation: Did not discuss. <GILMA Crooks - Last Filed: 10/25/21 16:37> Physical Exam Vital Signs: Vital Signs: Last Vital Signs Temp 97.7 F 10/25/21 11:33 Pulse 92 10/25/21 11:33 Resp 12 10/25/21 11:33 BP 156/60 H 10/25/21 11:33 Pulse Ox 92 10/25/21 11:33 BMI result Body Mass Index 17.7 <GILMA Crooks - Last Filed: 10/25/21 16:37> Vital Signs: Last Vital Signs Temp 97.7 F 10/25/21 11:33 Pulse 92 10/25/21 11:33 Resp 12 10/25/21 11:33 BP 156/60 H 10/25/21 11:33 Pulse Ox 92 10/25/21 11:33 BMI result Body Mass Index 17.7 <GILMA Cavazos - Last Filed: 10/25/21 19:30> Appearance: Alert. Oriented X1-2. No acute distress. Eyes: Pupils equal, round and reactive to light. ENT: Pharynx normal. Neck: Normal inspection. Neck supple. CVS: Normal heart rate and rhythm. Pulses normal. Respiratory: No respiratory distress. Breath sounds normal. Abdomen: Soft and nontender. +BS x4 Skin: Skin warm and dry. Normal skin color. Normal skin turgor. No rashes. Extremities: No lower extremity edema. Neuro/psych: Oriented X 1-2. No motor deficit. No sensory deficit. +Hallucinations, anxious, poor historian <GILMA Crooks - Last Filed: 10/25/21 16:37> Course Course Course Narrative: 51-year-old female with history of chronic pain, anxiety, delirium in the past in the setting of UTI presents to the ER with visual hallucinations at home. She is describing to the nurse in the emergency room that she is seeing viscious dogs. Will get metabolic workup and r/o infection. <GILMA Crooks Last Filed: 10/25/21 16:37> Reevaluation(s) Reevaluation #1: Medical workup was unremarkable. Urinalysis is negative for infection. Her U tox is positive for benzos and cocaine. She is prescribed Klonopin. At this time she is medically cleared. Will have the crisis team see her. Physician observation started at 10am. Patient placed in physician observation because patient is awaiting [facility] evaluation for the possible need of inpatient psych admission. At the time observation was started patient's vital signs were stable. Patient is alert and oriented. Neuro exam is non-focal. CV: RRR and lungs are clear. Will continue to monitor. <GILMA Crooks - Last Filed: 10/25/21 16:37> Reevaluation #2: Patient moved to the pot for continued observation. Upon med rec patient reports she has not taken her perphenazine and 3 days because the pharmacy was out. This could be contributing to her hallucinations. Home meds were all restarted. <GILMA Crooks Last Filed: 10/25/21 16:37> Reevaluation #3: Lalo from the CARE team evaluated the patient - during his evaluation patient had a full conversation with her son who was not there. Her boyfriend reported that she runs out of all of her medication. Recommending inpatient level of care at this time. <GILMA Crooks Last Filed: 10/25/21 16:37> Additional Reevaluation(s): Was asked to go evaluate the patient at the bedside she is combative, punching things, hitting things, intrusive to staff members. Haldol, Benadryl and Ativan have been put in at this time. <GILMA Cavazos Last Filed: 10/25/21 19:30> Consultations Consultation #1: CARE team <GILMA Crooks Last Filed: 10/25/21 16:37> Medical Decision Making Lab Data Result diagrams: : 10/25/21 09:17 10/25/21 09:17 <GILMA Crooks Last Filed: 10/25/21 16:37> Labs: Lab Results 10/25/21 10/25/21 10/25/21 Range/Units 08:56 08:57 08:57 WBC (4.8-10.8) X10*3/uL RBC (4.20-5.50) X10*6/uL Hgb (12.0-16.0) g/dl Hct (37.0-47.0) % MCV (80.0-98.0) fL MCH (27.0-33.0) pg MCHC (31.0-35.0) g/dl RDW (11.0-16.0) % Plt Count (160-400) X10*3/uL MPV (9.4-12.3) fL Immature Gran % (Auto) (0.0-0.4) % Neut % (Auto) (45-73) % Lymph % (Auto) (20-40) % Ramsey % (Auto) (2-11) % Eos % (Auto) (0-4) % Baso % (Auto) (0-2) % Lymph # (Auto) (1.2-4.9) X10*3/uL Ramsey # (Auto) (0.1-1.2) X10*3/uL Eos # (Auto) (0.0-0.4) X10*3/uL Baso # (Auto) (0.0-0.2) X10*3/uL Abs Immat Gran (auto) (0.00-0.03) X10*3/uL Absolute Neuts (auto) (2.0-8.3) x10*3/uL Absolute Nucleated RBC (0.0-0.012) X10*3/uL Nucleated RBC % (auto) (0.0-0.2) /100WBC Sodium (135-145) mmol/L Potassium (3.3-5.1) mmol/L Chloride (96-108) mmol/L Carbon Dioxide (22-29) mmol/L Anion Gap (12-20) BUN (9-16) mg/dL Creatinine (0.5-1.4) mg/dL Estim Creat Clear Calc Estimated GFR Random Glucose (60-115) mg/dL Calcium (8.4-10.2) mg/dL Magnesium (1.6-2.6) mg/dL Total Bilirubin (0.0-1.0) mg/dL Direct Bilirubin (0.0-0.5) mg/dL AST (5-31) U/L ALT (0-31) U/L Alkaline Phosphatase (39-117) U/L Ammonia (13-55) umol/L Total Protein (6.5-8.0) g/dL Albumin (3.5-5.0) g/dL Urine Color YELLOW Urine Appearance HAZY Urine pH 6.0 (5.0-8.0) Ur Specific [place] >= 1.030 H (1.005-1.025) Urine Protein 1+ H (NEG-TRACE) MG/DL Urine Glucose (UA) NEG (NEG) MG/DL Urine Ketones 5 (NEG) MG/DL Urine Blood TRACE (NEG) Urine Nitrite NEG (NEG) Ur Leukocyte Esterase NEG (NEG) Urine RBC 0-2 (0) /HPF Urine WBC 0-2 (0-4) /HPF Ur Squamous Epith Cells 1+ /LPF Calcium Oxalate Crystal TRACE /LPF Urine Bacteria NONE /LPF Urine Opiates Screen Not Detected (Not Detect) Urine Fentanyl Screen Not Detected (Not Detect) Ur Barbiturates Screen Not Detected (Not Detect) Ur Phencyclidine Scrn Not Detected (Not Detect) Ur Amphetamines Screen Not Detected (Not Detect) U Benzodiazepines Scrn Not Detected (Not Detect) Urine Cocaine Screen POSITIVE H (Not Detect) U Marijuana (THC) Screen POSITIVE H (Not Detect) Ethyl Alcohol mg/dL COVID-19 (SALLY) Negative (Negative) COVID-19 Clin Com See Note 10/25/21 10/25/21 10/25/21 Range/Units 09:17 09:17 09:17 WBC 9.6 (4.8-10.8) X10*3/uL RBC 4.16 L (4.20-5.50) X10*6/uL Hgb 11.0 L (12.0-16.0) g/dl Hct 35.3 L (37.0-47.0) % MCV 84.9 (80.0-98.0) fL MCH 26.4 L (27.0-33.0) pg MCHC 31.2 (31.0-35.0) g/dl RDW 14.6 (11.0-16.0) % Plt Count 616 H (160-400) X10*3/uL MPV 9.5 (9.4-12.3) fL Immature Gran % (Auto) 0.4 (0.0-0.4) % Neut % (Auto) 77.0 H (45-73) % Lymph % (Auto) 15.3 L (20-40) % Ramsey % (Auto) 6.7 (2-11) % Eos % (Auto) 0.0 (0-4) % Baso % (Auto) 0.6 (0-2) % Lymph # (Auto) 1.5 (1.2-4.9) X10*3/uL Ramsey # (Auto) 0.6 (0.1-1.2) X10*3/uL Eos # (Auto) 0.0 (0.0-0.4) X10*3/uL Baso # (Auto) 0.1 (0.0-0.2) X10*3/uL Abs Immat Gran (auto) 0.04 H (0.00-0.03) X10*3/uL Absolute Neuts (auto) 7.4 (2.0-8.3) x10*3/uL Absolute Nucleated RBC 0.000 (0.0-0.012) X10*3/uL Nucleated RBC % (auto) 0.0 (0.0-0.2) /100WBC Sodium 143 (135-145) mmol/L Potassium 3.7 (3.3-5.1) mmol/L Chloride 107 (96-108) mmol/L Carbon Dioxide 26 (22-29) mmol/L Anion Gap 14 (12-20) BUN 9 (9-16) mg/dL Creatinine 0.72 (0.5-1.4) mg/dL Estim Creat Clear Calc 71.9 Estimated GFR > 60 Random Glucose 95 (60-115) mg/dL Calcium 9.4 (8.4-10.2) mg/dL Magnesium 1.8 (1.6-2.6) mg/dL Total Bilirubin 0.4 (0.0-1.0) mg/dL Direct Bilirubin < 0.2 (0.0-0.5) mg/dL AST 23 D (5-31) U/L ALT 21 (0-31) U/L Alkaline Phosphatase 68 D (39-117) U/L Ammonia 22 (13-55) umol/L Total Protein 6.9 (6.5-8.0) g/dL Albumin 4.4 (3.5-5.0) g/dL Urine Color Urine Appearance Urine pH (5.0-8.0) Ur Specific [place] (1.005-1.025) Urine Protein (NEG-TRACE) MG/DL Urine Glucose (UA) (NEG) MG/DL Urine Ketones (NEG) MG/DL Urine Blood (NEG) Urine Nitrite (NEG) Ur Leukocyte Esterase (NEG) Urine RBC (0) /HPF Urine WBC (0-4) /HPF Ur Squamous Epith Cells /LPF Calcium Oxalate Crystal /LPF Urine Bacteria /LPF Urine Opiates Screen (Not Detect) Urine Fentanyl Screen (Not Detect) Ur Barbiturates Screen (Not Detect) Ur Phencyclidine Scrn (Not Detect) Ur Amphetamines Screen (Not Detect) U Benzodiazepines Scrn (Not Detect) Urine Cocaine Screen (Not Detect) U Marijuana (THC) Screen (Not Detect) Ethyl Alcohol mg/dL COVID-19 (SALLY) (Negative) COVID-19 Clin Com 10/25/21 Range/Units 09:17 WBC (4.8-10.8) X10*3/uL RBC (4.20-5.50) X10*6/uL Hgb (12.0-16.0) g/dl Hct (37.0-47.0) % MCV (80.0-98.0) fL MCH (27.0-33.0) pg MCHC (31.0-35.0) g/dl RDW (11.0-16.0) % Plt Count (160-400) X10*3/uL MPV (9.4-12.3) fL Immature Gran % (Auto) (0.0-0.4) % Neut % (Auto) (45-73) % Lymph % (Auto) (20-40) % Ramsey % (Auto) (2-11) % Eos % (Auto) (0-4) % Baso % (Auto) (0-2) % Lymph # (Auto) (1.2-4.9) X10*3/uL Ramsey # (Auto) (0.1-1.2) X10*3/uL Eos # (Auto) (0.0-0.4) X10*3/uL Baso # (Auto) (0.0-0.2) X10*3/uL Abs Immat Gran (auto) (0.00-0.03) X10*3/uL Absolute Neuts (auto) (2.0-8.3) x10*3/uL Absolute Nucleated RBC (0.0-0.012) X10*3/uL Nucleated RBC % (auto) (0.0-0.2) /100WBC Sodium (135-145) mmol/L Potassium (3.3-5.1) mmol/L Chloride (96-108) mmol/L Carbon Dioxide (22-29) mmol/L Anion Gap (12-20) BUN (9-16) mg/dL Creatinine (0.5-1.4) mg/dL Estim Creat Clear Calc Estimated GFR Random Glucose (60-115) mg/dL Calcium (8.4-10.2) mg/dL Magnesium (1.6-2.6) mg/dL Total Bilirubin (0.0-1.0) mg/dL Direct Bilirubin (0.0-0.5) mg/dL AST (5-31) U/L ALT (0-31) U/L Alkaline Phosphatase (39-117) U/L Ammonia (13-55) umol/L Total Protein (6.5-8.0) g/dL Albumin (3.5-5.0) g/dL Urine Color Urine Appearance Urine pH (5.0-8.0) Ur Specific [place] (1.005-1.025) Urine Protein (NEG-TRACE) MG/DL Urine Glucose (UA) (NEG) MG/DL Urine Ketones (NEG) MG/DL Urine Blood (NEG) Urine Nitrite (NEG) Ur Leukocyte Esterase (NEG) Urine RBC (0) /HPF Urine WBC (0-4) /HPF Ur Squamous Epith Cells /LPF Calcium Oxalate Crystal /LPF Urine Bacteria /LPF Urine Opiates Screen (Not Detect) Urine Fentanyl Screen (Not Detect) Ur Barbiturates Screen (Not Detect) Ur Phencyclidine Scrn (Not Detect) Ur Amphetamines Screen (Not Detect) U Benzodiazepines Scrn (Not Detect) Urine Cocaine Screen (Not Detect) U Marijuana (THC) Screen (Not Detect) Ethyl Alcohol < 10 mg/dL COVID-19 (SALLY) (Negative) COVID-19 Clin Com <GILMA Crooks - Last Filed: 10/25/21 16:37> Lab Results 10/25/21 10/25/21 10/25/21 Range/Units 08:56 08:57 08:57 WBC (4.8-10.8) X10*3/uL RBC (4.20-5.50) X10*6/uL Hgb (12.0-16.0) g/dl Hct (37.0-47.0) % MCV (80.0-98.0) fL MCH (27.0-33.0) pg MCHC (31.0-35.0) g/dl RDW (11.0-16.0) % Plt Count (160-400) X10*3/uL MPV (9.4-12.3) fL Immature Gran % (Auto) (0.0-0.4) % Neut % (Auto) (45-73) % Lymph % (Auto) (20-40) % Ramsey % (Auto) (2-11) % Eos % (Auto) (0-4) % Baso % (Auto) (0-2) % Lymph # (Auto) (1.2-4.9) X10*3/uL Ramsey # (Auto) (0.1-1.2) X10*3/uL Eos # (Auto) (0.0-0.4) X10*3/uL Baso # (Auto) (0.0-0.2) X10*3/uL Abs Immat Gran (auto) (0.00-0.03) X10*3/uL Absolute Neuts (auto) (2.0-8.3) x10*3/uL Absolute Nucleated RBC (0.0-0.012) X10*3/uL Nucleated RBC % (auto) (0.0-0.2) /100WBC Sodium (135-145) mmol/L Potassium (3.3-5.1) mmol/L Chloride (96-108) mmol/L Carbon Dioxide (22-29) mmol/L Anion Gap (12-20) BUN (9-16) mg/dL Creatinine (0.5-1.4) mg/dL Estim Creat Clear Calc Estimated GFR Random Glucose (60-115) mg/dL Calcium (8.4-10.2) mg/dL Magnesium (1.6-2.6) mg/dL Total Bilirubin (0.0-1.0) mg/dL Direct Bilirubin (0.0-0.5) mg/dL AST (5-31) U/L ALT (0-31) U/L Alkaline Phosphatase (39-117) U/L Ammonia (13-55) umol/L Total Protein (6.5-8.0) g/dL Albumin (3.5-5.0) g/dL Urine Color YELLOW Urine Appearance HAZY Urine pH 6.0 (5.0-8.0) Ur Specific [place] >= 1.030 H (1.005-1.025) Urine Protein 1+ H (NEG-TRACE) MG/DL Urine Glucose (UA) NEG (NEG) MG/DL Urine Ketones 5 (NEG) MG/DL Urine Blood TRACE (NEG) Urine Nitrite NEG (NEG) Ur Leukocyte Esterase NEG (NEG) Urine RBC 0-2 (0) /HPF Urine WBC 0-2 (0-4) /HPF Ur Squamous Epith Cells 1+ /LPF Calcium Oxalate Crystal TRACE /LPF Urine Bacteria NONE /LPF Urine Opiates Screen Not Detected (Not Detect) Urine Fentanyl Screen Not Detected (Not Detect) Ur Barbiturates Screen Not Detected (Not Detect) Ur Phencyclidine Scrn Not Detected (Not Detect) Ur Amphetamines Screen Not Detected (Not Detect) U Benzodiazepines Scrn Not Detected (Not Detect) Urine Cocaine Screen POSITIVE H (Not Detect) U Marijuana (THC) Screen POSITIVE H (Not Detect) Ethyl Alcohol mg/dL COVID-19 (SALLY) Negative (Negative) COVID-19 Clin Com See Note 10/25/21 10/25/21 10/25/21 Range/Units 09:17 09:17 09:17 WBC 9.6 (4.8-10.8) X10*3/uL RBC 4.16 L (4.20-5.50) X10*6/uL Hgb 11.0 L (12.0-16.0) g/dl Hct 35.3 L (37.0-47.0) % MCV 84.9 (80.0-98.0) fL MCH 26.4 L (27.0-33.0) pg MCHC 31.2 (31.0-35.0) g/dl RDW 14.6 (11.0-16.0) % Plt Count 616 H (160-400) X10*3/uL MPV 9.5 (9.4-12.3) fL Immature Gran % (Auto) 0.4 (0.0-0.4) % Neut % (Auto) 77.0 H (45-73) % Lymph % (Auto) 15.3 L (20-40) % Ramsey % (Auto) 6.7 (2-11) % Eos % (Auto) 0.0 (0-4) % Baso % (Auto) 0.6 (0-2) % Lymph # (Auto) 1.5 (1.2-4.9) X10*3/uL Ramsey # (Auto) 0.6 (0.1-1.2) X10*3/uL Eos # (Auto) 0.0 (0.0-0.4) X10*3/uL Baso # (Auto) 0.1 (0.0-0.2) X10*3/uL Abs Immat Gran (auto) 0.04 H (0.00-0.03) X10*3/uL Absolute Neuts (auto) 7.4 (2.0-8.3) x10*3/uL Absolute Nucleated RBC 0.000 (0.0-0.012) X10*3/uL Nucleated RBC % (auto) 0.0 (0.0-0.2) /100WBC Sodium 143 (135-145) mmol/L Potassium 3.7 (3.3-5.1) mmol/L Chloride 107 (96-108) mmol/L Carbon Dioxide 26 (22-29) mmol/L Anion Gap 14 (12-20) BUN 9 (9-16) mg/dL Creatinine 0.72 (0.5-1.4) mg/dL Estim Creat Clear Calc 71.9 Estimated GFR > 60 Random Glucose 95 (60-115) mg/dL Calcium 9.4 (8.4-10.2) mg/dL Magnesium 1.8 (1.6-2.6) mg/dL Total Bilirubin 0.4 (0.0-1.0) mg/dL Direct Bilirubin < 0.2 (0.0-0.5) mg/dL AST 23 D (5-31) U/L ALT 21 (0-31) U/L Alkaline Phosphatase 68 D (39-117) U/L Ammonia 22 (13-55) umol/L Total Protein 6.9 (6.5-8.0) g/dL Albumin 4.4 (3.5-5.0) g/dL Urine Color Urine Appearance Urine pH (5.0-8.0) Ur Specific [place] (1.005-1.025) Urine Protein (NEG-TRACE) MG/DL Urine Glucose (UA) (NEG) MG/DL Urine Ketones (NEG) MG/DL Urine Blood (NEG) Urine Nitrite (NEG) Ur Leukocyte Esterase (NEG) Urine RBC (0) /HPF Urine WBC (0-4) /HPF Ur Squamous Epith Cells /LPF Calcium Oxalate Crystal /LPF Urine Bacteria /LPF Urine Opiates Screen (Not Detect) Urine Fentanyl Screen (Not Detect) Ur Barbiturates Screen (Not Detect) Ur Phencyclidine Scrn (Not Detect) Ur Amphetamines Screen (Not Detect) U Benzodiazepines Scrn (Not Detect) Urine Cocaine Screen (Not Detect) U Marijuana (THC) Screen (Not Detect) Ethyl Alcohol mg/dL COVID-19 (SALLY) (Negative) COVID-19 Clin Com 10/25/21 Range/Units 09:17 WBC (4.8-10.8) X10*3/uL RBC (4.20-5.50) X10*6/uL Hgb (12.0-16.0) g/dl Hct (37.0-47.0) % MCV (80.0-98.0) fL MCH (27.0-33.0) pg MCHC (31.0-35.0) g/dl RDW (11.0-16.0) % Plt Count (160-400) X10*3/uL MPV (9.4-12.3) fL Immature Gran % (Auto) (0.0-0.4) % Neut % (Auto) (45-73) % Lymph % (Auto) (20-40) % [place] % (Auto) (2-11) % Eos % (Auto) (0-4) % Baso % (Auto) (0-2) % Lymph # (Auto) (1.2-4.9) X10*3/uL [place] # (Auto) (0.1-1.2) X10*3/uL Eos # (Auto) (0.0-0.4) X10*3/uL Baso # (Auto) (0.0-0.2) X10*3/uL Abs Immat Gran (auto) (0.00-0.03) X10*3/uL Absolute Neuts (auto) (2.0-8.3) x10*3/uL Absolute Nucleated RBC (0.0-0.012) X10*3/uL Nucleated RBC % (auto) (0.0-0.2) /100WBC Sodium (135-145) mmol/L Potassium (3.3-5.1) mmol/L Chloride (96-108) mmol/L Carbon Dioxide (22-29) mmol/L Anion Gap (12-20) BUN (9-16) mg/dL Creatinine (0.5-1.4) mg/dL Estim Creat Clear Calc Estimated GFR Random Glucose (60-115) mg/dL Calcium (8.4-10.2) mg/dL Magnesium (1.6-2.6) mg/dL Total Bilirubin (0.0-1.0) mg/dL Direct Bilirubin (0.0-0.5) mg/dL AST (5-31) U/L ALT (0-31) U/L Alkaline Phosphatase (39-117) U/L Ammonia (13-55) umol/L Total Protein (6.5-8.0) g/dL Albumin (3.5-5.0) g/dL Urine Color Urine Appearance Urine pH (5.0-8.0) Ur Specific [place] (1.005-1.025) Urine Protein (NEG-TRACE) MG/DL Urine Glucose (UA) (NEG) MG/DL Urine Ketones (NEG) MG/DL Urine Blood (NEG) Urine Nitrite (NEG) Ur Leukocyte Esterase (NEG) Urine RBC (0) /HPF Urine WBC (0-4) /HPF Ur Squamous Epith Cells /LPF Calcium Oxalate Crystal /LPF Urine Bacteria /LPF Urine Opiates Screen (Not Detect) Urine Fentanyl Screen (Not Detect) Ur Barbiturates Screen (Not Detect) Ur Phencyclidine Scrn (Not Detect) Ur Amphetamines Screen (Not Detect) U Benzodiazepines Scrn (Not Detect) Urine Cocaine Screen (Not Detect) U Marijuana (THC) Screen (Not Detect) Ethyl Alcohol < 10 mg/dL COVID-19 (SALLY) (Negative) COVID-19 Clin Com <GILMA Cavazos - Last Filed: 10/25/21 19:30> Critical Care Time Critical Care Time Critical Care Time: No <GILMA Crooks - Last Filed: 10/25/21 16:37> Discharge Plan Discharge Clinical Impression: Acute psychosis <GILMA Crooks - Last Filed: 10/25/21 16:37> Patient Disposition: Still a Patient <GILMA Crooks - Last Filed: 10/25/21 16:37> Prescriptions: No Action tizanidine 4 mg tablet 1 tab PO QID PRN (Reason: muscle spasm) 0RF hydromorphone 2 mg tablet 0.5 - 1 tab PO Q6H PRN (Reason: pain) 0RF zolpidem 10 mg tablet 0.5 - 1 tab PO BEDTIME PRN (Reason: insomnia) 0RF bupropion HCl 150 mg Tablet Extended Release 24 Hr 150 mg PO DAILY Qty: 30 0RF nitrofurantoin monohyd/m-cryst 100 mg Capsule 100 mg PO Q12H Qty: 14 0RF perphenazine 4 mg tablet 4 mg PO TID Qty: 90 0RF simethicone [Gas Relief (simethicone)] 80 mg Tablet,Chewable 160 mg PO QIDWMHS Qty: 90 0RF clonazepam 0.5 mg tablet 1 mg PO BID PRN (Reason: anxiety) 0RF clonazepam 0.5 mg Tablet 1.5 mg BEDTIME 0RF <GILMA Crooks - Last Filed: 10/25/21 16:37>
[2021-10-25 09:07] LABS: Appearance Urine HAZY; Color Urine YELLOW; Glucose Urine UA NEG (NEG); Leukocyte Esterase Urine NEG (NEG); Nitrite Urine NEG (NEG); Specific Gravity - Urine >= 1.030 (1.005-1.025); UACC Culture Trigger NO; Urine Blood TRACE (NEG); Urine Ketones 5 MG/DL (NEG); Urine Protein 1+ MG/DL (NEG-TRACE)
[2021-10-25 09:17] LABS: Calcium Oxalate Crystals Urine TRACE /LPF; RBC Urine 0-2 /HPF (0); Squamous Epithelial Cell Urine 1+ /LPF; WBC Urine 0-2 /HPF (0-4)
[2021-10-25 09:21] LABS: COVID-19 Test Negative (Negative)
[2021-10-25] MEDS: 0.9 % Sodium Chloride 1,000 ML 999 ML IVCONT (09:21)
[2021-10-25 09:29] LABS: MANUAL DIFF FLAG NO
[2021-10-25 09:34] LABS: Basophils Absolute Auto 0.1 X10*3/uL (0.0-0.2); Basophils Percent Auto 0.6 % (0-2); Hematocrit 35.3 % (37.0-47.0); Imm Gran Abs Auto 0.04 X10*3/uL (0.00-0.03); Imm Gran Pct Auto 0.4 % (0.0-0.4); Lymphocytes Absolute Auto 1.5 X10*3/uL (1.2-4.9); Lymphocytes Percent Auto 15.3 % (20-40); Mean Corpuscular HGB Conc 31.2 g/dl (31.0-35.0); Mean Corpuscular Hemoglobin 26.4 pg (27.0-33.0); Mean Corpuscular Volume 84.9 fL (80.0-98.0); Mean Platelet Volume 9.5 fL (9.4-12.3); Monocytes Absolute Auto 0.6 X10*3/uL (0.1-1.2); Monocytes Percent Auto 6.7 % (2-11); Neutrophils Absolute Auto 7.4 x10*3/uL (2.0-8.3); Platelet Count 616 X10*3/uL (160-400); Red Blood Count 4.16 X10*6/uL (4.20-5.50); Red Cell Distribution Width 14.6 % (11.0-16.0); White Blood Count 9.6 X10*3/uL (4.8-10.8)
[2021-10-25 09:42] LABS: Ammonia 22 umol/L (13-55)
[2021-10-25 09:46] LABS: Ethanol < 10 mg/dL
[2021-10-25 09:48] LABS: Alanine Aminotransferase 21 U/L (0-31); Albumin Level 4.4 g/dL (3.5-5.0); Alkaline Phosphatase 68 U/L (39-117); Anion Gap 14 (12-20); Aspartate Amino Transferase 23 U/L (5-31); Bilirubin Direct < 0.2 mg/dL (0.0-0.5); Bilirubin Total 0.4 mg/dL (0.0-1.0); Blood Urea Nitrogen 9 mg/dL (9-16); Calcium 9.4 mg/dL (8.4-10.2); Carbon Dioxide 26 mmol/L (22-29); Chloride 107 mmol/L (96-108); Creatinine Clr Calc Pharmacy 71.9; Estimated Glomerular Filt Rate > 60; Glucose Random 95 mg/dL (60-115); Magnesium 1.8 mg/dL (1.6-2.6); Potassium 3.7 mmol/L (3.3-5.1); Sodium 143 mmol/L (135-145); Total Protein 6.9 g/dL (6.5-8.0)
[2021-10-25 09:52] LABS: Amphetamine Screen Urine Not Detected (Not Detect); Barbiturates, Urine Not Detected (Not Detect); Benzodiazepines Screen Urine Not Detected (Not Detect); Cannabinoid Screen Urine POSITIVE (Not Detect); Cocaine Screen Urine POSITIVE (Not Detect); Fentanyl, urine Not Detected (Not Detect); Opiate Screen Urine Not Detected (Not Detect); Phencyclidine Screen Urine Not Detected (Not Detect)
[2021-10-25] MEDS: LORazepam 1 MG TABLET PO (11:47)
--- NOTE | 2021-10-25 14:52 | PC.NURSE ---
silviano phone number [phone]
[2021-10-25] MEDS: Perphenazine 4 MG TABLET PO (15:23)
[2021-10-25] MEDS: clonazePAM 1 MG TABLET PO (18:40)
[2021-10-25] MEDS: Haloperidol Lactate 5 MG/ML VIAL IM (19:35)
[2021-10-25] MEDS: LORazepam 2 MG/ML VIAL IM (19:35)
[2021-10-25] MEDS: diphenhydrAMINE HCL 50 MG/ML VIAL IM (19:35)
--- NOTE | 2021-10-25 20:04 | PC.NURSE ---
Patient had been off her antipsychotics medication for few days, decompensation state at this time, psychotic agitation, threatening and exit seeking, provider notified ordered ativan 2 mg IM, Haldol 5 mg IM, and Benadryl 50 mg IM/administered at 1935, pending effect, currently in her room lying in her bed, vss, will continue to monitor.
--- NOTE | 2021-10-26 | ECG_ITS ---
Test Reason : MEDICAL CLEARANCE Blood Pressure : / mmHG Vent. Rate : 090 BPM Atrial Rate : 090 BPM P-R Int : 138 ms QRS Dur : 068 ms QT Int : 376 ms P-R-T Axes : 070 031 039 degrees QTc Int : 459 ms Normal sinus rhythm Biatrial enlargement Low voltage QRS Abnormal ECG When compared with ECG of 09-AUG-2019 15:11, Nonspecific T wave abnormality no longer evident in Lateral leads Referred By: Margarette Pride Electronically Signed By:Payam Cuenca
--- NOTE | 2021-10-26 05:11 | PC.NURSE ---
Patient slept through the night, no distress observed/reported, thought process tangential, thought content paranoid, s/p chemical restraint, vss, disposition per [facility] is section 12 inpatient bed search, medication compliant, will continue to monitor.
[2021-10-26 05:20] VITALS: BP 140/80; PULSE 114; RESP 20; TEMP 36.4; O2SAT 95
--- NOTE | 2021-10-26 07:13 | PC.NURSE ---
patient appears to remain asleep at present respirations are even and unlabored patient appears in no dsitress
[2021-10-26] MEDS: clonazePAM 1 MG TABLET PO ×3 (09:21→21:11)
[2021-10-26] MEDS: TiZANidine HCL 4 MG TABLET PO ×2 (09:21→21:15)
[2021-10-26] MEDS: Perphenazine 4 MG TABLET PO ×3 (09:22→21:11)
--- NOTE | 2021-10-26 13:48 | PC.NURSE ---
patient requestd simethcone as she takes it at home like 125mg w meals. rlayed info to provider.
[2021-10-26 14:09] LABS: IDNOW Serial# 9DD0AD1C
[2021-10-26 14:10] LABS: COVID-19 Test Negative (Negative)
--- NOTE | 2021-10-26 18:02 | HO.PSYADMNOT ---
HPI Date of Service: 10/26/21 Chief Complaint: Psychosis Sources of Information: patient interviewed, chart reviewed and crisis/core team assessment reviewed HPI Subjective Notes: [place] Warning and Conditional Voluntary Healthcare Proxy: No Guardianship: No Medical Problems Affecting Mental Status: No Narrative: Pt is a 51 y/o female who carries a dx of delusional disorder, panic disorder, and cocaine use disorder. She has co-morbid chronic lumbar radiculopathy w/ sciatica s/p recent injection. She presented to [facility] [place] [place] ED on 10/25/21 due to hallucinations, i.e. VH of vicious animals? and reporting she has had ?full conversations? with people who are not there. Per pt, this has happened in the past in the context of UTI, however U/A was negative for infection. Pt had not taken her perphenazine x 3 days, which was restarted in the ED. Pt required chemical restraint of haldol, benadryl, ativan while in the ED due to becoming combative, punching things, hitting things. Per CARE team eval, pt has not been sleeping. She was responding to internal stimuli and was disoriented. Utox positive for cocaine, cannabis. Per previous documentation, pt was hospitalized on M5 in 04/2021 due to similar presentation of paranoid delusions i.e. thought someone broke into her home. She was started on perphenazine and gained some insight, however continued to report delusions as true and had difficulty with reality testing. Per discharge, pt had hx 3 incidents of psychosis, two of them had been on prednisone and one she had a UTI.? I evaluated the pt this evening and upon interview she reports her hallucinations started on Saturday, however pt believes her perceptual disturbances are real and says ?I dont think I was hallucinating.? Per pt, she had VH of ?vicious? dogs and says ?those dogs are real, I?ve seen those dogs.? At times, pt demonstrates insight and becomes distressed, stating ?If any part of that isnt true, I dont know. I know the whole thing is crazy.? Says she is an ?active participant? in her hallucinations. She reports she could hear and see minors in [place] who were trapped, ?I could hear them talking.? Says she sees the number 33 chiseled on a wall and that ?I hear them so clearly, I watch them so clearly, I could see the wedding.? States she has not been sleeping. Currently denies A/VH while in the hospital setting, as she says she feels ?contained? and ?hidden here.? Pt reports at home she will take 3 mg of klonopin, up to 12 mg of tizanidine, and 10 mg of ambien in order to sleep due to back pain, ?the pain is too bad.? States her energy is low and she has not been eating, has lost weight. Describes her mood as ?flat? but denies depression. Says her anxiety is ?high? because ?Im just confused whether im nuts? and that ?Im very anxious inside.? Denies restlessness or akathesia, no EPS.? I spoke with pt?s Jose Luis rosa, for collateral info. He reports pt has been experiencing increased delusions since 10/18/21. He reports the last ?big episode? occurred in April prior to her last inpatient stay at [facility] and that he does not believe her sx entirely cleared, as she ?still has good days and bad days.? He reports she has not been sleeping and on Saturday or Saturday she would not even go into bed because she believed there was ?something in the bed.? Per Jose Luis, he hasnt noticed benefit with medication ?thus far,? and he feels pt ?has seen a decline, especially with all this weight loss, that?s a big concern of mine.? He reports concern with pt over using her prescribed medication and running out of it, ?she takes too much sleeping medication and then doesnt have enough of it and then doesnt sleep, its a whole bad health nightmare.? He states she appears depressed, but is unsure if this is due to chronic pain, as she has days she cant get out of bed due to pain. He reports pt uses cocaine from time to time and she has abused pain medication. He says he has been ooking into rehabs for her, ?that?s what I think she needs.? Past Psychiatric History: -past meds: seroquel, haldol -pt has had 2 previous inpatient stays on , last 04/2021 for paranoid delusions, psychosis, decompensation. Medical Evaluation Reviewed: Yes [facility] Medical History (Updated 10/27/21 @ 07:54 by Gracie Grajeda NP) Anal fissure Anemia Anxiety Cervical radiculitis Cervical spinal cord compression Gonsalves hemangioma Chronic diarrhea Chronic narcotic use Chronic night sweats Chronic pain Contact dermatitis Cough Depression Dysconjugate gaze Dysuria Failed back surgical syndrome Fibromyalgia Gastric stress ulcer Gluteal pain Irritable bowel syndrome Left rib fracture Leg weakness Leukocytosis Low back pain Low ferritin Lumbar radiculitis Lumbar radiculopathy, chronic Medication side effects Mental status change resolved Muscle spasm Neck pain Panic attacks Paralysis Paresthesia of right upper limb 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 Pharyngitis Phlebitis Plantar wart Presbycusis Pyogenic granuloma Rash Right cervical radiculopathy Right elbow pain Sleep disturbance Social anxiety disorder Tachycardia Tubular adenoma Underweight Use of opiates for therapeutic purposes Vaginal discharge Vaginitis Viral gastroenteritis Vitamin D deficiency Yeast vaginitis Surgical History (Updated 09/25/21 @ 14:29 by Kishan Wilkes) H/O colectomy H/O endoscopy H/O laparoscopy Hx of colonoscopy S/P cervical discectomy Social History: -Pt lives with her boyfriend (Jose Luis, verbal permission to call him at [phone]) and son. Unemployed, has disability due to chronic pain. Substance History: -Utox positive for cocaine, cannabis. Per collateral contact, pt has abused pain medication, cocaine. Denies alcohol abuse. Diagnostics Vital Signs (24Hr): Vital Signs - 24 hr 10/25/21 19:35 10/25/21 19:50 10/25/21 20:05 Temperature Pulse Rate Respiratory Rate 20 18 18 Blood Pressure Pulse Oximetry 10/25/21 20:20 10/25/21 20:35 10/26/21 05:20 Temperature 97.5 F Pulse Rate 114 H Respiratory Rate 16 16 20 Blood Pressure 140/80 H Pulse Oximetry 95 BMI result Body Mass Index 17.7 Labs Results: 10/25/21 09:17 10/25/21 09:17 Labs: Laboratory Results - last 48 hr 10/25/21 10/25/21 10/25/21 08:56 08:57 08:57 WBC RBC Hgb Hct MCV MCH MCHC RDW Plt Count MPV Immature Gran % (Auto) Neut % (Auto) Lymph % (Auto) [place] % (Auto) Eos % (Auto) Baso % (Auto) Lymph # (Auto) [place] # (Auto) Eos # (Auto) Baso # (Auto) Abs Immat Gran (auto) Absolute Neuts (auto) Absolute Nucleated RBC Nucleated RBC % (auto) Sodium Potassium Chloride Carbon Dioxide Anion Gap BUN Creatinine Estim Creat Clear Calc Estimated GFR Random Glucose Calcium Magnesium Total Bilirubin Direct Bilirubin AST ALT Alkaline Phosphatase Ammonia Total Protein Albumin Urine Color YELLOW Urine Appearance HAZY Urine pH 6.0 Ur Specific [place] >= 1.030 H Urine Protein 1+ H Urine Glucose (UA) NEG Urine Ketones 5 Urine Blood TRACE Urine Nitrite NEG Ur Leukocyte Esterase NEG Urine RBC 0-2 Urine WBC 0-2 Ur Squamous Epith Cells 1+ Calcium Oxalate Crystal TRACE Urine Bacteria NONE Urine Opiates Screen Not Detected Urine Fentanyl Screen Not Detected Ur Barbiturates Screen Not Detected Ur Phencyclidine Scrn Not Detected Ur Amphetamines Screen Not Detected U Benzodiazepines Scrn Not Detected Urine Cocaine Screen POSITIVE H U Marijuana (THC) Screen POSITIVE H Ethyl Alcohol COVID-19 (SALYL) Negative COVID-19 Clin Com See Note 10/25/21 10/25/21 10/25/21 09:17 09:17 09:17 WBC 9.6 RBC 4.16 L Hgb 11.0 L Hct 35.3 L MCV 84.9 MCH 26.4 L MCHC 31.2 RDW 14.6 Plt Count 616 H MPV 9.5 Immature Gran % (Auto) 0.4 Neut % (Auto) 77.0 H Lymph % (Auto) 15.3 L [place] % (Auto) 6.7 Eos % (Auto) 0.0 Baso % (Auto) 0.6 Lymph # (Auto) 1.5 [place] # (Auto) 0.6 Eos # (Auto) 0.0 Baso # (Auto) 0.1 Abs Immat Gran (auto) 0.04 H Absolute Neuts (auto) 7.4 Absolute Nucleated RBC 0.000 Nucleated RBC % (auto) 0.0 Sodium 143 Potassium 3.7 Chloride 107 Carbon Dioxide 26 Anion Gap 14 BUN 9 Creatinine 0.72 Estim Creat Clear Calc 71.9 Estimated GFR > 60 Random Glucose 95 Calcium 9.4 Magnesium 1.8 Total Bilirubin 0.4 Direct Bilirubin < 0.2 AST 23 D ALT 21 Alkaline Phosphatase 68 D Ammonia 22 Total Protein 6.9 Albumin 4.4 Urine Color Urine Appearance Urine pH Ur Specific [place] Urine Protein Urine Glucose (UA) Urine Ketones Urine Blood Urine Nitrite Ur Leukocyte Esterase Urine RBC Urine WBC Ur Squamous Epith Cells Calcium Oxalate Crystal Urine Bacteria Urine Opiates Screen Urine Fentanyl Screen Ur Barbiturates Screen Ur Phencyclidine Scrn Ur Amphetamines Screen U Benzodiazepines Scrn Urine Cocaine Screen U Marijuana (THC) Screen Ethyl Alcohol COVID-19 (SALLY) COVID-19 Clin Com 10/25/21 10/26/21 09:17 13:43 WBC RBC Hgb Hct MCV MCH MCHC RDW Plt Count MPV Immature Gran % (Auto) Neut % (Auto) Lymph % (Auto) [place] % (Auto) Eos % (Auto) Baso % (Auto) Lymph # (Auto) [place] # (Auto) Eos # (Auto) Baso # (Auto) Abs Immat Gran (auto) Absolute Neuts (auto) Absolute Nucleated RBC Nucleated RBC % (auto) Sodium Potassium Chloride Carbon Dioxide Anion Gap BUN Creatinine Estim Creat Clear Calc Estimated GFR Random Glucose Calcium Magnesium Total Bilirubin Direct Bilirubin AST ALT Alkaline Phosphatase Ammonia Total Protein Albumin Urine Color Urine Appearance Urine pH Ur Specific [place] Urine Protein Urine Glucose (UA) Urine Ketones Urine Blood Urine Nitrite Ur Leukocyte Esterase Urine RBC Urine WBC Ur Squamous Epith Cells Calcium Oxalate Crystal Urine Bacteria Urine Opiates Screen Urine Fentanyl Screen Ur Barbiturates Screen Ur Phencyclidine Scrn Ur Amphetamines Screen U Benzodiazepines Scrn Urine Cocaine Screen U Marijuana (THC) Screen Ethyl Alcohol < 10 COVID-19 (SALLY) Negative COVID-19 Clin Com See Note Meds/Allergies Meds Home Medications Acetaminophen (Acetaminophen 325 Mg Tablet) 650 mg PO Q6H PRN PRN Reason: Headache/Pain Mild Scale (1-3) Al Hydroxide/Mg Hydroxide (Magnesium Hydrox/Alum Hydrox 30 Ml Oral.Susp) 30 ml PO Q6H PRN PRN Reason: Heartburn/Nausea Clonazepam (Clonazepam 1 Mg Tablet) 1 mg PO DAILY PRN PRN Reason: anxiety Clonazepam (Clonazepam 1 Mg Tablet) 1 mg PO BEDTIME PRN PRN Reason: insomnia Last Admin: 10/26/21 21:11 Dose: 1 mg Documented by: Clonazepam (Clonazepam 1 Mg Tablet) 1 mg PO BEDTIME PEDRITO Last Admin: 10/26/21 21:11 Dose: 1 mg Documented by: Diphenhydramine HCl (Diphenhydramine Hcl 25 Mg Tablet) 50 mg PO Q4H PRN PRN Reason: agitation Haloperidol (Haloperidol 5 Mg Tablet) 5 mg PO Q4H PRN PRN Reason: agitation Hydroxyzine HCl (Hydroxyzine Hcl 25 Mg Tablet) 25 mg PO QID PRN PRN Reason: Anxiety Lorazepam (Lorazepam 1 Mg Tablet) 2 mg PO Q4H PRN PRN Reason: agitation Magnesium Hydroxide (Milk Of Magnesia 30 Ml Oral.Susp) 30 ml PO DAILY PRN PRN Reason: Constipation Nicotine Polacrilex (Nicotine Polacrilex Lozenge 4 Mg Lozenge) 4 mg BUCCAL Q2H PRN PRN Reason: Nicotine Cravings Perphenazine (Perphenazine 4 Mg Tablet) 4 mg PO TID PEDRITO Last Admin: 10/26/21 21:11 Dose: 4 mg Documented by: Simethicone (Simethicone 80 Mg Tab.Chew) 125 mg PO TID PRN PRN Reason: Poor Bowel Movement Last Admin: 10/26/21 18:25 Dose: 125 mg Documented by: Tizanidine HCl (Tizanidine Hcl 4 Mg Tablet) 4 mg PO QID PRN PRN Reason: muscle spasm Last Admin: 10/26/21 21:15 Dose: 4 mg Documented by: Zolpidem Tartrate (Zolpidem Tartrate 5 Mg Tablet) 5 mg PO BEDTIME PRN PRN Reason: insomnia Last Admin: 10/26/21 21:11 Dose: 5 mg Documented by: Allergies Allergies Allergy/AdvReac Type Severity Reaction Status Date / Time duloxetine [From CYMBALTA] Allergy Unknown UNKNOWN Verified 10/11/21 08:01 morphine [MORPHINE] Allergy Unknown HALLUCINATI Verified 10/11/21 08:01 ONS Phenylpiperazine AdvReac Severe hallucinati Verified 10/11/21 08:01 Antidepressant ons Tetracyclic Antidepressants AdvReac Severe hallucinati Verified 10/11/21 08:01 ons fentanyl [FENTANYL] AdvReac Unknown UNKNOWN Verified 10/11/21 08:01 ketorolac [From TORADOL] AdvReac Unknown UNKNOWN Verified 10/11/21 08:01 Mental Status Exam Mental Status Exam Narrative: A&O except to situation. Pt is thin, unkempt appearing, in hospital attire. Good eye contact, mostly attentive. No Tics or Tremors. No abnormal involuntary movements. Tearful, distressed at times, other times she is lying down on hospital couch, appears tired. Non-pressured speech, spontaneous with regular rate and rhythm, normal volume and prosody. No prolonged speech latency or dysarthria. Mood is ?anxious,? affect is anxious. Denies SI/SIB/HI upon inquiry. Endorses A/VH and paranoid delusional thought content. Thoughts are non-linear, confused. No known cognitive or memory impairment. Insight/ Judgment limited but adequate. Assessment & Plan Assessment & Plan (1) Cocaine use disorder: Status: Acute Code(s): F14.10 - Cocaine abuse, uncomplicated (2) DAYANNA (generalized anxiety disorder): Status: Acute Code(s): F41.1 - Generalized anxiety disorder (3) Delusional disorder: Status: Acute Code(s): F22 - Delusional disorders Plan Pt is a 51 y/o female who carries a dx of delusional disorder, panic disorder, and cocaine use disorder. She has co-morbid chronic lumbar radiculopathy w/ sciatica s/p recent injection. She presented to [facility] [place] [place] ED on 10/25/21 due to hallucinations, i.e. VH of vicious animals? and reporting she has had ?full conversations? with people who are not there. Per collateral contacts, pt at baseline has been struggling with perceptual disturbances, paranoia, and poor reality testing, although at times she can be coherent and organized. Pt has been struggling with poor sleep, poor appetite, and has been intermittently abusing cocaine. Has hx of abusing pain medication. She is currently overusing her prescribed medications and runs out of them, although she insists that her providers let her take them how she wants. Has been on perphenazine since 04/2021, unclear benefit. Plan: Will lower klonopin from 3 mg at bedtime to 2 mg (prescribed 1 mg TID, however pt has been using 3 mg at night and says she takes an additional one in the day as needed). Will lower ambien to 5 mg. Will continue tizanidine as prescribed (pt has also been overusing this, takes 3 tabs at bedtime). Will consider increasing perphenazine or switching to atypical agent. Monitor response to medications. Monitor for safety in the milieu. Discharge on stabilization. Patient seen. Chart reviewed. Discussed with team. Obtain collateral contact info?as needed Reason for continued inpatient stay Substantial Risk for: inability to function, rapid decompensation and med/psych decompensation
[2021-10-26] MEDS: Simethicone 80 MG TAB.CHEW 125 MG PO (18:25)
--- NOTE | 2021-10-26 18:29 | PC.NURSE ---
pt did not reveive flu vaccine. does not want flu vaccine
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
[2021-10-26] MEDS: Zolpidem Tartrate 5 MG TABLET PO (21:11)
[2021-10-26 21:19] VITALS: BP 149/71; PULSE 99; TEMP 36.6; O2SAT 100
--- NOTE | 2021-10-27 08:18 | PC.NURSE ---
Per Gracie Grajeda, LUISITO pt able to take scheduled HS clonazepam 1 mg at same time as prn 1 mg order if desired, as long as daily dose does not exceed 3 mg.
[2021-10-27] MEDS: Simethicone 80 MG TAB.CHEW 125 MG PO ×2 (08:29→12:57)
[2021-10-27] MEDS: Perphenazine 4 MG TABLET PO ×2 (08:33→14:34)
[2021-10-27 08:35] VITALS: BP 126/89; PULSE 96; RESP 15; TEMP 36.7; O2SAT 100
[2021-10-27 09:04] LABS: Cholesterol 156 mg/dL; HDL Cholesterol 52 mg/dL; LDL Cholesterol Calculated 90 mg/dl; Triglycerides 74 mg/dL
[2021-10-27 09:05] LABS: Estimated Average Glucose 103 mg/dL; Hemoglobin A1c % 5.2 %
[2021-10-27] MEDS: TiZANidine HCL 4 MG TABLET PO ×3 (14:34→20:45)
[2021-10-27] MEDS: clonazePAM 1 MG TABLET PO ×3 (14:34→21:26)
[2021-10-27 16:04] VITALS: BMI 17.7
--- NOTE | 2021-10-27 16:15 | MHC.CLN ---
NUTRITION ADDED ENSURE TID TO PROVIDE ADDITIONAL 1050 KCAL, 60 GRAMS PROTEIN. ADVISED PATIENT THAT IT IS A SOY BASED PRODUCT AND DISCUSSED KCALS AND PROTEIN.
--- NOTE | 2021-10-27 17:18 | P.PNPSI_ITS ---
Subjective Subjective Date of Service: 10/27/21 Reason For Visit: Psychosis Subjective Notes: [place] Warning and Conditional Voluntary Healthcare Proxy: No Guardianship: No Medical Problems Affecting Mental Status: No Interim History: Patient seen and discussed with team. Patient evaluated this today and upon interview she reports that the trilafon is helping because she is seeing fewer shadows in her peripheral vision, her sleep is improved, and her A/VH are continuing but they're less. Wants to trial an increased dose, denies SE. Pt continues to report chronic back pain. Mood is okay. Discussed her substance use and that pt's bf is looking into rehabs for her, however pt says I did look into that already, however says she has been unable to find a facility to treat cocaine use disorder. Pt says she uses cocaine in the morning to get through the day and out of desperation, as she says she wasnt sleeping at all and thought if she could stay up in the day, she would sleep at night. She last used $150 worth of cocaine within the last week, 2 lines every morning. Prior to that had not used since 06/2021. She says she does not think cocaine has caused her hallucinations, as they were happening prior to use. Pt discussed feeling frustrated with her chronic pain and not being on pain meds, they put me where im doing street drugs, unfortunatley, that's situation they got me in and she is making survival choices. Says her pain is so bad that she is knows the number of steps it takes her to get to the fridge or walk around in the grocery store. She uses cannabis gummies and says they help at night to relax. Per pt, some days I consider heroin, that's a bad spot to be in. Her son is living with her brother (he is age 11), as pt is unable to care for him. She reports lack of benefit on Gabapentin ( all my hair started coming out in big clumps ) and cymbalta ( im allergic ) for pain. In the milieu, patient is safe and appropriate in behavior. Denies SI/SIB/HI upon inquiry. Denies irritability or assaultive ideation. Says she feels safe. Medication Compliance: Yes Side effects from medications: No Attending Groups: No Review of Systems Acute medical concerns: No Medical Review of Systems: unchanged Mental Status Exam Mental Status Exam Narrative: A&O. Pt is thin, good hygiene (showered), in hospital attire. Good eye contact, mostly attentive. No Tics or Tremors. No abnormal involuntary movements. Pete marks, distressed at times, other times she is lying down on hospital couch, appears tired. Non-pressured speech, spontaneous with regular rate and rhythm, normal volume and prosody. No prolonged speech latency or dysarthria. Mood is ?anxious,? affect is anxious. Denies SI/SIB/HI upon inquiry. Endorses fewer A/VH and denies paranoid delusional thought content. Thoughts are more organized and able to reality test. No known cognitive or memory impairment. Insight/ Judgment limited but adequate. Diagnostics Vital Signs (24Hr): Vital Signs - 24 hr 10/26/21 21:19 10/27/21 08:35 Temperature 97.9 F 98.0 F Pulse Rate 99 96 Respiratory Rate 15 Blood Pressure 149/71 H 126/89 Pulse Oximetry 100 100 BMI result Body Mass Index 17.7 Labs Results: 10/25/21 09:17 10/25/21 09:17 Labs: Laboratory Results - last 48 hr 10/26/21 10/27/21 10/27/21 13:43 08:13 08:13 Estimat Average Glucose 103 Hemoglobin A1c % 5.2 Triglycerides 74 Cholesterol 156 LDL Cholesterol, Calc 90 HDL Cholesterol 52 COVID-19 (SALLY) Negative COVID-19 Clin Com See Note Medications Medications Current Medications Acetaminophen (Acetaminophen 325 Mg Tablet) 650 mg PO Q6H PRN PRN Reason: Headache/Pain Mild Scale (1-3) Al Hydroxide/Mg Hydroxide (Magnesium Hydrox/Alum Hydrox 30 Ml Oral.Susp) 30 ml PO Q6H PRN PRN Reason: Heartburn/Nausea Clonazepam (Clonazepam 1 Mg Tablet) 1 mg PO DAILY PRN PRN Reason: anxiety Last Admin: 10/27/21 14:34 Dose: 1 mg Documented by: Clonazepam (Clonazepam 1 Mg Tablet) 1 mg PO BEDTIME PRN PRN Reason: insomnia Last Admin: 10/26/21 21:11 Dose: 1 mg Documented by: Clonazepam (Clonazepam 1 Mg Tablet) 1 mg PO BEDTIME [facility] Last Admin: 10/26/21 21:11 Dose: 1 mg Documented by: Diphenhydramine HCl (Diphenhydramine Hcl 25 Mg Tablet) 50 mg PO Q4H PRN PRN Reason: agitation Haloperidol (Haloperidol 5 Mg Tablet) 5 mg PO Q4H PRN PRN Reason: agitation Hydroxyzine HCl (Hydroxyzine Hcl 25 Mg Tablet) 25 mg PO QID PRN PRN Reason: Anxiety Lorazepam (Lorazepam 1 Mg Tablet) 2 mg PO Q4H PRN PRN Reason: agitation Magnesium Hydroxide (Milk Of Magnesia 30 Ml Oral.Susp) 30 ml PO DAILY PRN PRN Reason: Constipation Nicotine Polacrilex (Nicotine Polacrilex Lozenge 4 Mg Lozenge) 4 mg BUCCAL Q2H PRN PRN Reason: Nicotine Cravings Perphenazine (Perphenazine 4 Mg Tablet) 4 mg PO TID [facility] Last Admin: 10/27/21 14:34 Dose: 4 mg Documented by: Simethicone (Simethicone 80 Mg Tab.Chew) 125 mg PO TID PRN PRN Reason: Poor Bowel Movement Last Admin: 10/27/21 12:57 Dose: 120 mg Documented by: Tizanidine HCl (Tizanidine Hcl 4 Mg Tablet) 4 mg PO QID [facility] Zolpidem Tartrate (Zolpidem Tartrate 5 Mg Tablet) 5 mg PO BEDTIME PRN PRN Reason: insomnia Last Admin: 10/26/21 21:11 Dose: 5 mg Documented by: Allergies Allergies Allergy/AdvReac Type Severity Reaction Status Date / Time duloxetine [From CYMBALTA] Allergy Unknown UNKNOWN Verified 10/11/21 08:01 morphine [MORPHINE] Allergy Unknown HALLUCINATI Verified 10/11/21 08:01 ONS Phenylpiperazine AdvReac Severe hallucinati Verified 10/11/21 08:01 Antidepressant ons Tetracyclic Antidepressants AdvReac Severe hallucinati Verified 10/11/21 08:01 ons fentanyl [FENTANYL] AdvReac Unknown UNKNOWN Verified 10/11/21 08:01 ketorolac [From TORADOL] AdvReac Unknown UNKNOWN Verified 10/11/21 08:01 Assessment & Plan Assessment & Plan (1) Cocaine use disorder: Status: Acute Code(s): F14.10 - Cocaine abuse, uncomplicated (2) DAYANNA (generalized anxiety disorder): Status: Acute Code(s): F41.1 - Generalized anxiety disorder (3) Delusional disorder: Status: Acute Code(s): F22 - Delusional disorders Plan Pt is a 51 y/o female who carries a dx of delusional disorder, panic disorder, and cocaine use disorder. She has co-morbid chronic lumbar radiculopathy w/ sciatica s/p recent injection. She presented to [facility] ED on 10/25/21 due to hallucinations, i.e. VH of vicious animals? and reporting she has had ?full conversations? with people who are not there. Per collateral contacts, pt at baseline has been struggling with perceptual disturbances, paranoia, and poor reality testing, although at times she can be coherent and organized. Pt has been struggling with poor sleep, poor appetite, and has been intermittently abusing cocaine. Has hx of abusing pain medication. She is currently overusing her prescribed medications and runs out of them, although she insists that her providers let her take them how she wants. Has been on perphenazine since 04/2021, unclear benefit. Plan: Will lower klonopin from 3 mg at bedtime to 2 mg (prescribed 1 mg TID, however pt has been using 3 mg at night and says she takes an additional one in the day as needed). Will lower ambien to 5 mg. Will continue tizanidine as prescribed (pt has also been overusing this, takes 3 tabs at bedtime). Will consider increasing perphenazine or switching to atypical agent. 10/27: will increase trilafon to 8 mg TID to target hallucinations, delusional thought content, and anxious distress/ mood instability. Will monitor for EPS. Monitor response to medications. Monitor for safety in the milieu. Discharge on stabilization. Patient seen. Chart reviewed. Discussed with team. Obtain collateral contact info?as needed I spent minutes with the patient and/or on the patient floor today, greater than?50% of which was spent counseling/coordinating care. Reason for contiued inpatient stay Substantial Risk for: rapid decompensation and med/psych decompensation
[2021-10-27] MEDS: Simethicone 80 MG TAB.CHEW 120 MG PO (18:19)
[2021-10-27 19:39] LABS: Appearance Urine CLEAR; Color Urine YELLOW; Glucose Urine UA NEG (NEG); Leukocyte Esterase Urine NEG (NEG); Nitrite Urine NEG (NEG); Urine Blood NEG (NEG); Urine Ketones NEG (NEG); Urine Protein NEG (NEG-TRACE)
[2021-10-27] MEDS: Perphenazine 8 MG TABLET PO (20:45)
[2021-10-27] MEDS: Zolpidem Tartrate 5 MG TABLET PO (20:51)
[2021-10-27 20:54] VITALS: BP 109/59; PULSE 76; TEMP 36.7; O2SAT 100
[2021-10-27] MEDS: HaloperidoL 5 MG TABLET PO (22:09)
[2021-10-27] MEDS: diphenhydrAMINE HCL 25 MG TABLET 50 MG PO (22:09)
[2021-10-27] MEDS: LORazepam 1 MG TABLET 2 MG PO (22:09)
[2021-10-28] MEDS: Simethicone 80 MG TAB.CHEW 120 MG PO ×3 (09:03→16:50)
[2021-10-28] MEDS: TiZANidine HCL 4 MG TABLET PO ×4 (09:03→21:38)
[2021-10-28] MEDS: Perphenazine 8 MG TABLET PO ×3 (09:04→21:39)
[2021-10-28 09:20] VITALS: BP 121/84; PULSE 97; RESP 17; TEMP 36.9; O2SAT 99
[2021-10-28] MEDS: clonazePAM 1 MG TABLET PO ×2 (15:32→21:38)
--- NOTE | 2021-10-28 17:51 | P.PNPSI_ITS ---
Subjective Subjective Date of Service: 10/28/21 Reason For Visit: Psychosis Interim History: Patient seen and discussed with team. Continues to report the Trilafon is helpful. The shadows in the peripheral vision are less. She denies any side effects. She talked about her chronic back pain and how her surgeries didn't work. Depression is better since admission. In the milieu, patient is safe and appropriate in behavior. Denies SI/SIB/HI upon inquiry. Denies irritability or assaultive ideation. Says she feels safe. Review of Systems Review of Systems CVS: No c/o chest pain, palpitations, no SOB [employer] PROFESSIONAL: No c/o dizziness, headache GI: No c/o Nausea, Vomiting, diarrhea, constipation or heartburn Mental Status Exam Mental Status Exam Narrative: A&O. Pt is thin, good hygiene (showered), in hospital attire. Good eye contact, mostly attentive. No Tics or Tremors. No abnormal involuntary movements. Tearful, distressed at times, other times she is lying down on hospital couch, appears tired. Non-pressured speech, spontaneous with regular rate and rhythm, normal volume and prosody. No prolonged speech latency or dysarthria. Mood is ?better,? affect is anxious. Denies SI/SIB/HI upon inquiry. Endorses fewer A/VH and denies paranoid delusional thought content. Thoughts are more organized and able to reality test. No known cognitive or memory impairment. Insight/ Judgment limited but adequate. Diagnostics Vital Signs (24Hr): Vital Signs - 24 hr 10/28/21 09:20 10/28/21 21:35 Temperature 98.4 F 98.1 F Pulse Rate 97 88 Respiratory Rate 17 Blood Pressure 121/84 108/58 L Pulse Oximetry 99 100 BMI result Body Mass Index 17.7 Labs Results: 10/25/21 09:17 10/25/21 09:17 Labs: Laboratory Results - last 48 hr 10/27/21 10/27/21 10/27/21 08:13 08:13 18:23 Estimat Average Glucose 103 Hemoglobin A1c % 5.2 Triglycerides 74 Cholesterol 156 LDL Cholesterol, Calc 90 HDL Cholesterol 52 Urine Color YELLOW Urine Appearance CLEAR Urine pH 6.0 Ur Specific [place] 1.010 Urine Protein NEG Urine Glucose (UA) NEG Urine Ketones NEG Urine Blood NEG Urine Nitrite NEG Ur Leukocyte Esterase NEG Medications Medications Current Medications Acetaminophen (Acetaminophen 325 Mg Tablet) 650 mg PO Q6H PRN PRN Reason: Headache/Pain Mild Scale (1-3) Al Hydroxide/Mg Hydroxide (Magnesium Hydrox/Alum Hydrox 30 Ml Oral.Susp) 30 ml PO Q6H PRN PRN Reason: Heartburn/Nausea Clonazepam (Clonazepam 1 Mg Tablet) 1 mg PO DAILY PRN PRN Reason: anxiety Last Admin: 10/28/21 15:32 Dose: 1 mg Documented by: Clonazepam (Clonazepam 1 Mg Tablet) 1 mg PO BEDTIME PRN PRN Reason: insomnia Last Admin: 10/27/21 21:26 Dose: 1 mg Documented by: Clonazepam (Clonazepam 1 Mg Tablet) 1 mg PO BEDTIME PEDRITO Last Admin: 10/28/21 21:38 Dose: 1 mg Documented by: Diphenhydramine HCl (Diphenhydramine Hcl 25 Mg Tablet) 50 mg PO Q4H PRN PRN Reason: agitation Last Admin: 10/28/21 21:39 Dose: 50 mg Documented by: Haloperidol (Haloperidol 5 Mg Tablet) 5 mg PO Q4H PRN PRN Reason: agitation Last Admin: 10/28/21 21:39 Dose: 5 mg Documented by: Hydroxyzine HCl (Hydroxyzine Hcl 25 Mg Tablet) 25 mg PO QID PRN PRN Reason: Anxiety Lorazepam (Lorazepam 1 Mg Tablet) 2 mg PO Q4H PRN PRN Reason: agitation Last Admin: 10/28/21 21:39 Dose: 2 mg Documented by: Magnesium Hydroxide (Milk Of Magnesia 30 Ml Oral.Susp) 30 ml PO DAILY PRN PRN Reason: Constipation Nicotine Polacrilex (Nicotine Polacrilex Lozenge 4 Mg Lozenge) 4 mg BUCCAL Q2H PRN PRN Reason: Nicotine Cravings Perphenazine (Perphenazine 8 Mg Tablet) 8 mg PO TID [facility] Last Admin: 10/28/21 21:39 Dose: 8 mg Documented by: Simethicone (Simethicone 80 Mg Tab.Chew) 120 mg PO QIDWS [facility] Last Admin: 10/28/21 21:42 Dose: Not Given Documented by: Simethicone (Simethicone 80 Mg Tab.Chew) 120 mg PO DAILY PRN PRN Reason: gas pain Tizanidine HCl (Tizanidine Hcl 4 Mg Tablet) 4 mg PO QID PEDRITO Last Admin: 10/28/21 21:38 Dose: 4 mg Documented by: Zolpidem Tartrate (Zolpidem Tartrate 5 Mg Tablet) 5 mg PO BEDTIME PRN PRN Reason: insomnia Last Admin: 10/27/21 20:51 Dose: 5 mg Documented by: Allergies Allergies Allergy/AdvReac Type Severity Reaction Status Date / Time duloxetine [From CYMBALTA] Allergy Unknown UNKNOWN Verified 10/11/21 08:01 morphine [MORPHINE] Allergy Unknown HALLUCINATI Verified 10/11/21 08:01 ONS Phenylpiperazine AdvReac Severe hallucinati Verified 10/11/21 08:01 Antidepressant ons Tetracyclic Antidepressants AdvReac Severe hallucinati Verified 10/11/21 08:01 ons fentanyl [FENTANYL] AdvReac Unknown UNKNOWN Verified 10/11/21 08:01 ketorolac [From TORADOL] AdvReac Unknown UNKNOWN Verified 10/11/21 08:01 Assessment & Plan Assessment & Plan (1) Cocaine use disorder: Status: Acute Code(s): F14.10 - Cocaine abuse, uncomplicated (2) DAYANNA (generalized anxiety disorder): Status: Acute Code(s): F41.1 - Generalized anxiety disorder (3) Delusional disorder: Status: Acute Code(s): F22 - Delusional disorders Plan Pt is a 51 y/o female who carries a dx of delusional disorder, panic disorder, and cocaine use disorder. She has co-morbid chronic lumbar radiculopathy w/ sciatica s/p recent injection. She presented to [facility] on 10/25/21 due to hallucinations, i.e. VH of vicious animals? and reporting she has had ?full conversations? with people who are not there. Per collateral contacts, pt at baseline has been struggling with perceptual disturbances, paranoia, and poor reality testing, although at times she can be coherent and organized. Pt has been struggling with poor sleep, poor appetite, and has been intermittently abusing cocaine. Has hx of abusing pain medication. She is currently overusing her prescribed medications and runs out of them, although she insists that her providers let her take them how she wants. Has been on perphenazine since 04/2021, unclear benefit. Plan: Will lower klonopin from 3 mg at bedtime to 2 mg (prescribed 1 mg TID, however pt has been using 3 mg at night and says she takes an additional one in the day as needed). Will lower ambien to 5 mg. Will continue tizanidine as prescribed (pt has also been overusing this, takes 3 tabs at bedtime). Will consider increasing perphenazine or switching to atypical agent. 10/27: will increase trilafon to 8 mg TID to target hallucinations, delusional thought content, and anxious distress/ mood instability. Will monitor for EPS. 10/28/21: no change Monitor response to medications. Monitor for safety in the milieu. Discharge on stabilization. Patient seen. Chart reviewed. Discussed with team. Obtain collateral contact info?as needed I spent minutes with the patient and/or on the patient floor today, greater than?50% of which was spent counseling/coordinating care. Patient educated on: medication risk/benefits and medical condition Reason for contiued inpatient stay Substantial Risk for: harm to self and inability to function
[2021-10-28 21:35] VITALS: BP 108/58; PULSE 88; TEMP 36.7; O2SAT 100
[2021-10-28] MEDS: HaloperidoL 5 MG TABLET PO (21:39)
[2021-10-28] MEDS: diphenhydrAMINE HCL 25 MG TABLET 50 MG PO (21:39)
[2021-10-28] MEDS: LORazepam 1 MG TABLET 2 MG PO (21:39)
[2021-10-29] MEDS: Simethicone 80 MG TAB.CHEW 120 MG PO ×3 (09:19→17:52)
[2021-10-29] MEDS: TiZANidine HCL 4 MG TABLET PO ×4 (09:20→21:25)
[2021-10-29] MEDS: Perphenazine 8 MG TABLET PO ×3 (09:20→21:24)
--- NOTE | 2021-10-29 13:47 | HO.PSYCHPN ---
Subjective Subjective Date of Service: 10/29/21 Reason For Visit: Psychosis Interim History: Patient seen and discussed with team. Continues to report the Trilafon is helpful. Says she didn't sleep as well yesterday and she thinks it's because Klonopin was decreased and her Ambien lowered. The shadows in the peripheral vision are less. She denies any side effects. Depression is better since admission. In the milieu, patient is safe and appropriate in behavior. Denies SI/SIB/HI upon inquiry. Denies irritability or assaultive ideation. Says she feels safe. Review of Systems Review of Systems CVS: No c/o chest pain, palpitations, no SOB [employer]LECT[employer]ICIAN: No c/o dizziness, headache GI: No c/o Nausea, Vomiting, diarrhea, constipation or heartburn Mental Status Exam Mental Status Exam Narrative: A&O. Pt is thin, good hygiene (showered), in hospital attire. Good eye contact, mostly attentive. No Tics or Tremors. No abnormal involuntary movements. Tearful, distressed at times, other times she is lying down on hospital couch, appears tired. Non-pressured speech, spontaneous with regular rate and rhythm, normal volume and prosody. No prolonged speech latency or dysarthria. Mood is ?better,? affect is anxious. Denies SI/SIB/HI upon inquiry. Endorses fewer A/VH and denies paranoid delusional thought content. Thoughts are more organized and able to reality test. No known cognitive or memory impairment. Insight/ Judgment limited but adequate. Diagnostics Vital Signs (24Hr): Vital Signs - 24 hr 10/28/21 21:35 Temperature 98.1 F Pulse Rate 88 Blood Pressure 108/58 L Pulse Oximetry 100 BMI result Body Mass Index 17.7 Labs Results: 10/25/21 09:17 10/25/21 09:17 Labs: Laboratory Results - last 48 hr 10/27/21 18:23 Urine Color YELLOW Urine Appearance CLEAR Urine pH 6.0 Ur Specific [place] 1.010 Urine Protein NEG Urine Glucose (UA) NEG Urine Ketones NEG Urine Blood NEG Urine Nitrite NEG Ur Leukocyte Esterase NEG Medications Medications Current Medications Acetaminophen (Acetaminophen 325 Mg Tablet) 650 mg PO Q6H PRN PRN Reason: Headache/Pain Mild Scale (1-3) Al Hydroxide/Mg Hydroxide (Magnesium Hydrox/Alum Hydrox 30 Ml Oral.Susp) 30 ml PO Q6H PRN PRN Reason: Heartburn/Nausea Clonazepam (Clonazepam 1 Mg Tablet) 1 mg PO DAILY PRN PRN Reason: anxiety Last Admin: 10/28/21 15:32 Dose: 1 mg Documented by: Clonazepam (Clonazepam 1 Mg Tablet) 1 mg PO BEDTIME PRN PRN Reason: insomnia Last Admin: 10/27/21 21:26 Dose: 1 mg Documented by: Clonazepam (Clonazepam 1 Mg Tablet) 1 mg PO BEDTIME [facility] Last Admin: 10/28/21 21:38 Dose: 1 mg Documented by: Diphenhydramine HCl (Diphenhydramine Hcl 25 Mg Tablet) 50 mg PO Q4H PRN PRN Reason: agitation Last Admin: 10/28/21 21:39 Dose: 50 mg Documented by: Haloperidol (Haloperidol 5 Mg Tablet) 5 mg PO Q4H PRN PRN Reason: agitation Last Admin: 10/28/21 21:39 Dose: 5 mg Documented by: Hydroxyzine HCl (Hydroxyzine Hcl 25 Mg Tablet) 25 mg PO QID PRN PRN Reason: Anxiety Lorazepam (Lorazepam 1 Mg Tablet) 2 mg PO Q4H PRN PRN Reason: agitation Last Admin: 10/28/21 21:39 Dose: 2 mg Documented by: Magnesium Hydroxide (Milk Of Magnesia 30 Ml Oral.Susp) 30 ml PO DAILY PRN PRN Reason: Constipation Nicotine Polacrilex (Nicotine Polacrilex Lozenge 4 Mg Lozenge) 4 mg BUCCAL Q2H PRN PRN Reason: Nicotine Cravings Perphenazine (Perphenazine 8 Mg Tablet) 8 mg PO TID [facility] Last Admin: 10/29/21 09:20 Dose: 8 mg Documented by: Simethicone (Simethicone 80 Mg Tab.Chew) 120 mg PO QIDWS [facility] Last Admin: 10/29/21 13:27 Dose: 120 mg Documented by: Simethicone (Simethicone 80 Mg Tab.Chew) 120 mg PO DAILY PRN PRN Reason: gas pain Tizanidine HCl (Tizanidine Hcl 4 Mg Tablet) 4 mg PO QID [facility] Last Admin: 10/29/21 09:20 Dose: 4 mg Documented by: Zolpidem Tartrate (Zolpidem Tartrate 5 Mg Tablet) 5 mg PO BEDTIME PRN PRN Reason: insomnia Last Admin: 10/27/21 20:51 Dose: 5 mg Documented by: Allergies Allergies Allergy/AdvReac Type Severity Reaction Status Date / Time duloxetine [From CYMBALTA] Allergy Unknown UNKNOWN Verified 10/11/21 08:01 morphine [MORPHINE] Allergy Unknown HALLUCINATI Verified 10/11/21 08:01 ONS Phenylpiperazine AdvReac Severe hallucinati Verified 10/11/21 08:01 Antidepressant ons Tetracyclic Antidepressants AdvReac Severe hallucinati Verified 10/11/21 08:01 ons fentanyl [FENTANYL] AdvReac Unknown UNKNOWN Verified 10/11/21 08:01 ketorolac [From TORADOL] AdvReac Unknown UNKNOWN Verified 10/11/21 08:01 Assessment & Plan Assessment & Plan (1) Cocaine use disorder: Status: Acute Code(s): F14.10 - Cocaine abuse, uncomplicated (2) DAYANNA (generalized anxiety disorder): Status: Acute Code(s): F41.1 - Generalized anxiety disorder (3) Delusional disorder: Status: Acute Code(s): F22 - Delusional disorders Plan Pt is a 51 y/o female who carries a dx of delusional disorder, panic disorder, and cocaine use disorder. She has co-morbid chronic lumbar radiculopathy w/ sciatica s/p recent injection. She presented to [facility] on 10/25/21 due to hallucinations, i.e. VH of vicious animals? and reporting she has had ?full conversations? with people who are not there. Per collateral contacts, pt at baseline has been struggling with perceptual disturbances, paranoia, and poor reality testing, although at times she can be coherent and organized. Pt has been struggling with poor sleep, poor appetite, and has been intermittently abusing cocaine. Has hx of abusing pain medication. She is currently overusing her prescribed medications and runs out of them, although she insists that her providers let her take them how she wants. Has been on perphenazine since 04/2021, unclear benefit. Plan: Will lower klonopin from 3 mg at bedtime to 2 mg (prescribed 1 mg TID, however pt has been using 3 mg at night and says she takes an additional one in the day as needed). Will lower ambien to 5 mg. Will continue tizanidine as prescribed (pt has also been overusing this, takes 3 tabs at bedtime). Will consider increasing perphenazine or switching to atypical agent. 10/27: will increase trilafon to 8 mg TID to target hallucinations, delusional thought content, and anxious distress/ mood instability. Will monitor for EPS. 10/28/21: no change 10/29: No change in controlled substances. Trazodone 25 mg HS Monitor response to medications. Monitor for safety in the milieu. Discharge on stabilization. Patient seen. Chart reviewed. Discussed with team. Obtain collateral contact info?as needed I spent minutes with the patient and/or on the patient floor today, greater than?50% of which was spent counseling/coordinating care. Reason for contiued inpatient stay Substantial Risk for: harm to self and inability to function
[2021-10-29 14:01] VITALS: BP 129/62; PULSE 93; TEMP 36.6; O2SAT 100
[2021-10-29] MEDS: clonazePAM 1 MG TABLET PO ×3 (14:44→21:28)
[2021-10-29] MEDS: diphenhydrAMINE HCL 25 MG TABLET 50 MG PO (21:25)
[2021-10-29] MEDS: LORazepam 1 MG TABLET 2 MG PO (21:25)
[2021-10-29] MEDS: HaloperidoL 5 MG TABLET PO (21:25)
[2021-10-29] MEDS: Zolpidem Tartrate 5 MG TABLET PO (21:28)
[2021-10-29 21:30] VITALS: BP 106/55; PULSE 88; TEMP 36.7; O2SAT 98
[2021-10-30 09:00] VITALS: BP 109/60; PULSE 120; RESP 14; TEMP 36.7; O2SAT 99
[2021-10-30] MEDS: TiZANidine HCL 4 MG TABLET PO ×4 (09:32→20:51)
[2021-10-30] MEDS: Perphenazine 8 MG TABLET PO ×3 (09:32→20:52)
[2021-10-30] MEDS: Simethicone 80 MG TAB.CHEW 120 MG PO ×3 (09:32→18:05)
[2021-10-30 12:56] VITALS: PULSE 96
[2021-10-30] MEDS: clonazePAM 1 MG TABLET PO ×3 (16:13→20:52)
--- NOTE | 2021-10-30 16:15 | MHC.CLN ---
F/U REPORTS THAT EATING WELL. THIS [employer] CALLED [employer] FOR SPECIFIC REQUESTS: NO VANILLA ENSURE, BALSALMIC VINEGAR ONLY, SMALL AMOUNT OF CHEESE ON Q[place]ILL[place] AND PIZZA. IS TAKING OTHER FLAVORS OF ENSURE SUPPLEMENT.
--- NOTE | 2021-10-30 16:46 | P.PNPSI_ITS ---
Subjective Subjective Date of Service: 10/30/21 Reason For Visit: Psychosis Interim History: Patient seen and discussed with team. Patient evaluated this today and upon interview pt reports I should be able to leave today and if i can i want to. Discussed that SW has talked with pt's bf, whom she lives with, and he would like to have a plan for discharge prior to her coming home. Pt is agreeable to stay tonight but says im leaving tomorrow one way or another. Pt reports positive benefit on trilafon increase, I feel better. Says she feels safe to go home. Says her sleep has been better but denies that trazodone has helped, instead says she has been given haldol, benadryl and ativan PRN- which I educated is not the intent of these medication orders, as they are for acute agitation and distress. Pt says when she returns home she plans to resume her regimen of taking klonopin 3 mg and ambien 10 mg for sleep. Denies hallucinations. In the milieu, patient is safe and appropriate in behavior, at time isolative but participating in groups. Denies SI/SIB/HI upon inquiry. Denies irritability or assaultive ideation. Says she feels safe. Medication Compliance: Yes Side effects from medications: No Attending Groups: Yes Review of Systems Acute medical concerns: No Medical Review of Systems: unchanged Mental Status Exam Mental Status Exam Narrative: A&O. Pt is thin, good hygiene, in hospital attire. Good eye contact, attentive. No Tics or Tremors. No abnormal involuntary movements. Calm, cooperative. Non- pressured speech, spontaneous with regular rate and rhythm, normal volume and prosody. No prolonged speech latency or dysarthria. Mood is ?good,? affect is somewhat blunted. Denies SI/SIB/HI upon inquiry. Denies A/VH and denies paranoid delusional thought content. Thoughts are more organized and able to reality test. No known cognitive or memory impairment. Insight/ Judgment limited but adequate. Diagnostics Vital Signs (24Hr): Vital Signs - 24 hr 10/29/21 21:30 10/30/21 09:00 10/30/21 12:56 Temperature 98.0 F 98.0 F Pulse Rate 88 120 H 96 Respiratory Rate 14 Blood Pressure 106/55 L 109/60 Pulse Oximetry 98 99 BMI result Body Mass Index 17.7 Labs Results: 10/25/21 09:17 10/25/21 09:17 Medications Medications Current Medications Acetaminophen (Acetaminophen 325 Mg Tablet) 650 mg PO Q6H PRN PRN Reason: Headache/Pain Mild Scale (1-3) Al Hydroxide/Mg Hydroxide (Magnesium Hydrox/Alum Hydrox 30 Ml Oral.Susp) 30 ml PO Q6H PRN PRN Reason: Heartburn/Nausea Clonazepam (Clonazepam 1 Mg Tablet) 1 mg PO DAILY PRN PRN Reason: anxiety Last Admin: 10/30/21 16:13 Dose: 1 mg Documented by: Clonazepam (Clonazepam 1 Mg Tablet) 1 mg PO BEDTIME PRN PRN Reason: insomnia Last Admin: 10/29/21 21:28 Dose: 1 mg Documented by: Clonazepam (Clonazepam 1 Mg Tablet) 1 mg PO BEDTIME [facility] Last Admin: 10/29/21 21:24 Dose: 1 mg Documented by: Diphenhydramine HCl (Diphenhydramine Hcl 25 Mg Tablet) 50 mg PO Q4H PRN PRN Reason: agitation Last Admin: 10/29/21 21:25 Dose: 50 mg Documented by: Haloperidol (Haloperidol 5 Mg Tablet) 5 mg PO Q4H PRN PRN Reason: agitation Last Admin: 10/29/21 21:25 Dose: 5 mg Documented by: Hydroxyzine HCl (Hydroxyzine Hcl 25 Mg Tablet) 25 mg PO QID PRN PRN Reason: Anxiety Lorazepam (Lorazepam 1 Mg Tablet) 2 mg PO Q4H PRN PRN Reason: agitation Last Admin: 10/29/21 21:25 Dose: 2 mg Documented by: Magnesium Hydroxide (Milk Of Magnesia 30 Ml Oral.Susp) 30 ml PO DAILY PRN PRN Reason: Constipation Nicotine Polacrilex (Nicotine Polacrilex Lozenge 4 Mg Lozenge) 4 mg BUCCAL Q2H PRN PRN Reason: Nicotine Cravings Perphenazine (Perphenazine 8 Mg Tablet) 8 mg PO TID [facility] Last Admin: 10/30/21 16:13 Dose: 8 mg Documented by: Simethicone (Simethicone 80 Mg Tab.Chew) 120 mg PO DAILY PRN PRN Reason: gas pain Simethicone (Simethicone 80 Mg Tab.Chew) 120 mg PO TIDWM [facility] Last Admin: 10/30/21 12:52 Dose: 120 mg Documented by: Tizanidine HCl (Tizanidine Hcl 4 Mg Tablet) 4 mg PO QID [facility] Last Admin: 10/30/21 16:14 Dose: 4 mg Documented by: Trazodone HCl (Trazodone Hcl 25 Mg Halftab) 25 mg PO BEDTIME [facility] Last Admin: 10/29/21 21:25 Dose: Not Given Documented by: Zolpidem Tartrate (Zolpidem Tartrate 5 Mg Tablet) 5 mg PO BEDTIME PRN PRN Reason: insomnia Last Admin: 10/29/21 21:28 Dose: 5 mg Documented by: Allergies Allergies Allergy/AdvReac Type Severity Reaction Status Date / Time duloxetine [From CYMBALTA] Allergy Unknown UNKNOWN Verified 10/11/21 08:01 morphine [MORPHINE] Allergy Unknown HALLUCINATI Verified 10/11/21 08:01 ONS Phenylpiperazine AdvReac Severe hallucinati Verified 10/11/21 08:01 Antidepressant ons Tetracyclic Antidepressants AdvReac Severe hallucinati Verified 10/11/21 08:01 ons fentanyl [FENTANYL] AdvReac Unknown UNKNOWN Verified 10/11/21 08:01 ketorolac [From TORADOL] AdvReac Unknown UNKNOWN Verified 10/11/21 08:01 Assessment & Plan Assessment & Plan (1) Cocaine use disorder: Status: Acute Code(s): F14.10 - Cocaine abuse, uncomplicated (2) DAYANNA (generalized anxiety disorder): Status: Acute Code(s): F41.1 - Generalized anxiety disorder (3) Delusional disorder: Status: Acute Code(s): F22 - Delusional disorders Plan Pt is a 51 y/o female who carries a dx of delusional disorder, panic disorder, and cocaine use disorder. She has co-morbid chronic lumbar radiculopathy w/ sciatica s/p recent injection. She presented to [facility] on 10/25/21 due to hallucinations, i.e. VH of vicious animals? and reporting she has had ?full conversations? with people who are not there. Per collateral contacts, pt at baseline has been struggling with perceptual disturbances, paranoia, and poor reality testing, although at times she can be coherent and organized. Pt has been struggling with poor sleep, poor appetite, and has been intermittently abusing cocaine. Has hx of abusing pain medication. She is currently overusing her prescribed medications and runs out of them, although she insists that her providers let her take them how she wants. Has been on perphenazine since 04/2021, unclear benefit. Plan: Will lower klonopin from 3 mg at bedtime to 2 mg (prescribed 1 mg TID, however pt has been using 3 mg at night and says she takes an additional one in the day as needed). Will lower ambien to 5 mg. Will continue tizanidine as presc ribed (pt has also been overusing this, takes 3 tabs at bedtime). Will consider increasing perphenazine or switching to atypical agent. 10/27: will increase trilafon to 8 mg TID to target hallucinations, delusional thought content, and anxious distress/ mood instability. Will monitor for EPS. 10/28/21: no change 10/29: No change in controlled substances. Trazodone 25 mg HS 10/30: continue medications due to reported benefit, no delusional thought content endorsed, denies A/VH Monitor response to medications. Monitor for safety in the milieu. Discharge on stabilization. Patient seen. Chart reviewed. Discussed with team. Obtain collateral contact info?as needed I spent minutes with the patient and/or on the patient floor today, greater than?50% of which was spent counseling/coordinating care. Reason for contiued inpatient stay Substantial Risk for: med/psych decompensation
[2021-10-30 20:35] VITALS: BP 107/62; PULSE 85; RESP 18; TEMP 36.3; O2SAT 99
[2021-10-30] MEDS: diphenhydrAMINE HCL 25 MG TABLET 50 MG PO (20:51)
[2021-10-30] MEDS: Zolpidem Tartrate 5 MG TABLET PO (20:52)
[2021-10-30] MEDS: HaloperidoL 5 MG TABLET PO (20:52)
[2021-10-31 08:00] VITALS: BP 130/64; PULSE 85; RESP 18; TEMP 36.8; O2SAT 100
[2021-10-31] MEDS: Simethicone 80 MG TAB.CHEW 160 MG PO ×3 (08:42→18:08)
[2021-10-31] MEDS: Perphenazine 8 MG TABLET PO ×3 (08:43→20:55)
[2021-10-31] MEDS: TiZANidine HCL 4 MG TABLET PO ×4 (08:43→20:55)
--- NOTE | 2021-10-31 14:19 | HO.PSYCHPN ---
Subjective Subjective Date of Service: 10/31/21 Reason For Visit: Psychosis Interim History: pt found resting in bed. dressed, wearing make-up, amenable to interview. would like discharge [facility]. states she signed 3-day and spoke with shanae about doing whatever she wants me to do for treatment. does not seem to know that she is being referred to an IOP; explains the IOP to her again. no other complaints or requests. explains we will be getting rid of ativan and haldol tonight, returning to her previous home regimen in preparation for discharge. she feels well on trilafon 8 TID for the time being. per staff, active, appropriate in groups. pleasant and social with peers. overusing klonopin outpatient. utox cocaine POS this admission. Mental Status Exam Mental Status Exam Narrative: A&O. Pt is thin, good hygiene, in street clothes. Good eye contact, attentive. No Tics or Tremors. No abnormal involuntary movements. Calm, cooperative. Non-pressured speech, spontaneous with regular rate and rhythm, normal volume and prosody. No prolonged speech latency or dysarthria. Mood is ?OK,? affect is somewhat blunted. Denies SI/SIB/HI upon inquiry. Denies A/VH and denies paranoid delusional thought content. Thoughts are organized. No known cognitive or memory impairment. Insight/ Judgment limited. Diagnostics Vital Signs (24Hr): Vital Signs - 24 hr 10/30/21 20:35 10/31/21 08:00 Temperature 97.4 F 98.3 F Pulse Rate 85 85 Respiratory Rate 18 18 Blood Pressure 107/62 130/64 Pulse Oximetry 99 100 BMI result Body Mass Index 17.7 Labs Results: 10/25/21 09:17 10/25/21 09:17 Medications Medications Current Medications Acetaminophen (Acetaminophen 325 Mg Tablet) 650 mg PO Q6H PRN PRN Reason: Headache/Pain Mild Scale (1-3) Al Hydroxide/Mg Hydroxide (Magnesium Hydrox/Alum Hydrox 30 Ml Oral.Susp) 30 ml PO Q6H PRN PRN Reason: Heartburn/Nausea Clonazepam (Clonazepam 1 Mg Tablet) 1 mg PO DAILY PRN PRN Reason: anxiety Last Admin: 10/30/21 16:13 Dose: 1 mg Documented by: Clonazepam (Clonazepam 1 Mg Tablet) 1 mg PO BEDTIME PRN PRN Reason: insomnia Last Admin: 10/30/21 20:52 Dose: 1 mg Documented by: Clonazepam (Clonazepam 1 Mg Tablet) 1 mg PO BEDTIME [facility] Last Admin: 10/30/21 20:52 Dose: 1 mg Documented by: Hydroxyzine HCl (Hydroxyzine Hcl 50 Mg Tablet) 50 mg PO QID PRN PRN Reason: Anxiety Magnesium Hydroxide (Milk Of Magnesia 30 Ml Oral.Susp) 30 ml PO DAILY PRN PRN Reason: Constipation Nicotine Polacrilex (Nicotine Polacrilex Lozenge 4 Mg Lozenge) 4 mg BUCCAL Q2H PRN PRN Reason: Nicotine Cravings Perphenazine (Perphenazine 8 Mg Tablet) 8 mg PO TID [facility] Last Admin: 10/31/21 08:43 Dose: 8 mg Documented by: Simethicone (Simethicone 80 Mg Tab.Chew) 160 mg PO DAILY PRN PRN Reason: gas pain Simethicone (Simethicone 80 Mg Tab.Chew) 160 mg PO TIDWM [facility] Last Admin: 10/31/21 12:48 Dose: 160 mg Documented by: Tizanidine HCl (Tizanidine Hcl 4 Mg Tablet) 4 mg PO QID [facility] Last Admin: 10/31/21 12:48 Dose: 4 mg Documented by: Zolpidem Tartrate (Zolpidem Tartrate 5 Mg Tablet) 5 mg PO BEDTIME PRN PRN Reason: insomnia Last Admin: 10/30/21 20:52 Dose: 5 mg Documented by: Allergies Allergies Allergy/AdvReac Type Severity Reaction Status Date / Time duloxetine [From CYMBALTA] Allergy Unknown UNKNOWN Verified 10/11/21 08:01 morphine [MORPHINE] Allergy Unknown HALLUCINATI Verified 10/11/21 08:01 ONS Phenylpiperazine AdvReac Severe hallucinati Verified 10/11/21 08:01 Antidepressant ons Tetracyclic Antidepressants AdvReac Severe hallucinati Verified 10/11/21 08:01 ons fentanyl [FENTANYL] AdvReac Unknown UNKNOWN Verified 10/11/21 08:01 ketorolac [From TORADOL] AdvReac Unknown UNKNOWN Verified 10/11/21 08:01 Assessment & Plan Assessment & Plan (1) Cocaine use disorder: Status: Acute Code(s): F14.10 - Cocaine abuse, uncomplicated (2) DAYANNA (generalized anxiety disorder): Status: Acute Code(s): F41.1 - Generalized anxiety disorder (3) Delusional disorder: Status: Acute Code(s): F22 - Delusional disorders Plan Pt is a 51 y/o female who carries a dx of delusional disorder, panic disorder, and cocaine use disorder. She has co-morbid chronic lumbar radiculopathy w/ sciatica s/p recent injection. She presented to [facility] on 10/25/21 due to hallucinations, i.e. VH of vicious animals? and reporting she has had ?full conversations? with people who are not there. Per collateral contacts, pt at baseline has been struggling with perceptual disturbances, paranoia, and poor reality testing, although at times she can be coherent and organized. Pt has been struggling with poor sleep, poor appetite, and has been intermittently abusing cocaine. Has hx of abusing pain medication. She is currently overusing her prescribed medications and runs out of them, although she insists that her providers let her take them how she wants. Has been on perphenazine since 04/2021, unclear benefit. Plan: Will lower klonopin from 3 mg at bedtime to 2 mg (prescribed 1 mg TID, however pt has been using 3 mg at night and says she takes an additional one in the day as needed). Will lower ambien to 5 mg. Will continue tizanidine as prescribed (pt has also been overusing this, takes 3 tabs at bedtime). Will consider increasing perphenazine or switching to atypical agent. 10/27: will increase trilafon to 8 mg TID to target hallucinations, delusional thought content, and anxious distress/ mood instability. Will monitor for EPS. 10/28/21: no change 10/29: No change in controlled substances. Trazodone 25 mg HS 10/30: continue medications due to reported benefit, no delusional thought content endorsed, denies A/VH. 10/31: stop ativan and haldol PRNs. stop trazodone per pt request. continue prior meds otherwise. signed 3-day notice. likely discharge tomorrow. I spent minutes with the patient and/or on the patient floor today, greater than?50% of which was spent counseling/coordinating care. Reason for contiued inpatient stay Substantial Risk for: inability to function and rapid decompensation
[2021-10-31] MEDS: clonazePAM 1 MG TABLET PO ×3 (17:07→21:01)
[2021-10-31 18:00] VITALS: BP 132/69; PULSE 88; RESP 18; TEMP 36.7; O2SAT 100
[2021-10-31] MEDS: hydrOXYzine HCL 50 MG TABLET PO (20:55)
[2021-10-31] MEDS: Zolpidem Tartrate 5 MG TABLET PO (20:55)
[2021-11-01 07:59] VITALS: BP 121/72; PULSE 95; RESP 16; TEMP 37.1; O2SAT 100
[2021-11-01] MEDS: Perphenazine 8 MG TABLET PO (08:22)
[2021-11-01] MEDS: TiZANidine HCL 4 MG TABLET PO (08:22)
[2021-11-01] MEDS: Simethicone 80 MG TAB.CHEW 160 MG PO (08:50)
--- NOTE | 2021-11-01 11:56 | P.DS_ITS ---
DS: Providers Provider Date of Service: 11/01/21 Date of admission: 10/26/21 17:39 Primary care physician: Abram Alfred MD DS: Diagnosis Discharge Diagnosis (1) Cocaine use disorder: Status: Acute (2) DAYANNA (generalized anxiety disorder): Status: Acute (3) Delusional disorder: Status: Acute DS: Medications Discharge Medications Home Medications: Home Medications Medication Instructions Recorded Confirmed tizanidine 4 mg tablet 1 tab PO QID PRN 04/23/21 10/25/21 zolpidem 10 mg tablet 0.5 - 1 tab PO BEDTIME PRN 04/23/21 10/25/21 clonazepam 0.5 mg tablet 1 mg PO BID PRN 10/25/21 10/25/21 clonazepam 0.5 mg tablet 1.5 mg BEDTIME 10/25/21 10/25/21 Previous Rx's Medication Instructions Recorded perphenazine 4 mg tablet 4 mg PO TID #90 tab 04/27/21 perphenazine 4 mg tablet 4 mg PO BID PRN 30 Days #60 tab 11/01/21 Mental Status Exam Mental Status Exam Narrative: A&O. Pt is thin, good hygiene, in street clothes. Good eye contact, attentive. No Tics or Tremors. No abnormal involuntary movements. Calm, cooperative. Non- pressured speech, spontaneous with regular rate and rhythm, normal volume and prosody. No prolonged speech latency or dysarthria. Mood is ?good,? affect is somewhat blunted. Denies SI/SIB/HI upon inquiry. Denies A/VH and denies paranoid delusional thought content. Thoughts are organized. No known cognitive or memory impairment. Insight/ Judgment limited. Data Data Completed and Pending Completed studies during hospitalization [Text1]: 10/26/21 10/27/21 10/27/21 13:43 08:13 08:13 Estimat Average Glucose 103 Hemoglobin A1c % 5.2 Triglycerides 74 Cholesterol 156 LDL Cholesterol, Calc 90 HDL Cholesterol 52 Urine Color Urine Appearance Urine pH Ur Specific [place] Urine Protein Urine Glucose (UA) Urine Ketones Urine Blood Urine Nitrite Ur Leukocyte Esterase COVID-19 (SALLY) Negative COVID-19 Clin Com See Note 10/27/21 18:23 Estimat Average Glucose Hemoglobin A1c % Triglycerides Cholesterol LDL Cholesterol, Calc HDL Cholesterol Urine Color YELLOW Urine Appearance CLEAR Urine pH 6.0 Ur Specific [place] 1.010 Urine Protein NEG Urine Glucose (UA) NEG Urine Ketones NEG Urine Blood NEG Urine Nitrite NEG Ur Leukocyte Esterase NEG COVID-19 (SALLY) COVID-19 Clin Com DS: Summary Hospital Course Hospital Course: per 10/26 admission note: Pt is a 51 y/o female who carries a dx of delusional disorder, panic disorder, and cocaine use disorder. She has co-morbid chronic lumbar radiculopathy w/ sciatica s/p recent injection. She presented to [facility] on 10/25/21 due to hallucinations, i.e. VH of vicious animals? and reporting she has had ?full conversations? with people who are not there. Per pt, this has happened in the past in the context of UTI, however U/A was negative for infection. Pt had not taken her perphenazine x 3 days, which was restarted in the ED. Pt required chemical restraint of haldol, benadryl, ativan while in the ED due to becoming combative, punching things, hitting things. Per CARE team eval, pt has not been sleeping. She was responding to internal stimuli and was disoriented. Utox positive for cocaine, cannabis. Per previous documentation, pt was hospitalized on M5 in 04/2021 due to similar presentation of paranoid delusions i.e. thought someone broke into her home. She was started on perphenazine and gained some insight, however continued to report delusions as true and had difficulty with reality testing. Per discharge, pt had hx 3 incidents of psychosis, two of them had been on prednisone and one she had a UTI.? I evaluated the pt this evening and upon interview she reports her hallucinations started on Saturday, however pt believes her perceptual disturbances are real and says ?I dont think I was hallucinating.? Per pt, she had VH of ?vicious? dogs and says ?those dogs are real, I?ve seen those dogs.? At times, pt demonstrates insight and becomes distressed, stating ?If any part of that isnt true, I dont know. I know the whole thing is crazy.? Says she is an ?active participant? in her hallucinations. She reports she could hear and see minors in [place] who were trapped, ?I could hear them talking.? Says she sees the number 33 chiseled on a wall and that ?I hear them so clearly, I watch them so clearly, I could see the wedding.? States she has not been sleeping. Currently denies A/VH while in the hospital setting, as she says she feels ?contained? and ?hidden here.? Pt reports at home she will take 3 mg of klonopin, up to 12 mg of tizanidine, and 10 mg of ambien in order to sleep due to back pain, ?the pain is too bad.? States her energy is low and she has not been eating, has lost weight. Describes her mood as ?flat? but denies depression. Says her anxiety is ?high? because ?Im just confused whether im nuts? and that ?Im very anxious inside.? Denies restlessness or akathesia, no EPS.? I spoke with pt?s Jose Luis rosa, for collateral info. He reports pt has been experiencing increased delusions since 10/18/21. He reports the last ?big episode? occurred in April prior to her last inpatient stay at [facility] and that he does not believe her sx entirely cleared, as she ?still has good days and bad days.? He reports she has not been sleeping and on Saturday or Saturday she would not even go into bed because she believed there was ?something in the bed.? Per Jose Luis, he hasnt noticed benefit with medication ?thus far,? and he feels pt ?has seen a decline, especially with all this weight loss, that?s a big concern of mine.? He reports concern with pt over using her prescribed medication and running out of it, ?she takes too much sleeping medication and then doesnt have enough of it and then doesnt sleep, its a whole bad health nightmare.? He states she appears depressed, but is unsure if this is due to chronic pain, as she has days she cant get out of bed due to pain. He reports pt uses cocaine from time to time and she has abused pain medication. He says he has been ooking into rehabs for her, ?that?s what I think she needs.? Past Psychiatric History: -past meds: seroquel, haldol -pt has had 2 previous inpatient stays on , last 04/2021 for paranoid delusions, psychosis, decompensation. Medical Evaluation Reviewed: Yes [facility] Medical History?(Updated 10/27/21 @ 07:54 by Gracie Grajeda, LUISITO) Anal fissure Anemia Anxiety Cervical radiculitis Cervical spinal cord compression Gonsalves hemangioma Chronic diarrhea Chronic narcotic use Chronic night sweats Chronic pain Contact dermatitis Cough Depression Dysconjugate gaze Dysuria Failed back surgical syndrome Fibromyalgia Gastric stress ulcer Gluteal pain Irritable bowel syndrome Left rib fracture Leg weakness Leukocytosis Low back pain Low ferritin Lumbar radiculitis Lumbar radiculopathy, chronic Medication side effects Mental status change resolved Muscle spasm Neck pain Panic attacks Paralysis Paresthesia of right upper limb 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(Updated 09/25/21 @ 14:29 by Kishan Wilkes) H/O colectomy H/O endoscopy H/O laparoscopy Hx of colonoscopy S/P cervical discectomy Social History: -Pt lives with her boyfriend (Jose Luis, verbal permission to call him at [phone]) and son. Unemployed, has disability due to chronic pain. Substance History: -Utox positive for cocaine, cannabis. Per collateral contact, pt has abused pain medication, cocaine. Denies alcohol abuse. 10/27: Patient seen and discussed with team. Patient evaluated this today and upon interview she reports that the trilafon is helping because she is seeing fewer shadows in her peripheral vision, her sleep is improved, and her A/VH are continuing but they're less. Wants to trial an increased dose, denies SE. Pt continues to report chronic back pain. Mood is okay. Discussed her substance use and that pt's bf is looking into rehabs for her, however pt says I did look into that already, however says she has been unable to find a facility to treat cocaine use disorder. Pt says she uses cocaine in the morning to get through the day and out of desperation, as she says she wasnt sleeping at all and thought if she could stay up in the day, she would sleep at night. She last used $150 worth of cocaine within the last week, 2 lines every morning. Prior to that had not used since 06/2021. She says she does not think cocaine has caused her hallucinations, as they were happening prior to use. Pt discussed feeling frustrated with her chronic pain and not being on pain meds, they put me where im doing street drugs, unfortunatley, that's situation they got me in and she is making survival choices. Says her pain is so bad that she is knows the number of steps it takes her to get to the fridge or walk around in the grocery store. She uses cannabis gummies and says they help at night to relax. Per pt, some days I consider heroin, that's a bad spot to be in. Her son is living with her brother (he is age 11), as pt is unable to care for him. She reports lack of benefit on Gabapentin ( all my hair started coming out in big clumps ) and cymbalta ( im allergic ) for pain. In the milieu, patient is safe and appropriate in behavior. Denies SI/SIB/HI upon inquiry. Denies irritability or assaultive ideation. Says she feels safe. 10/28: Continues to report the Trilafon is helpful. The shadows in the peripheral vision are less. She denies any side effects. She talked about her chronic back pain and how her surgeries didn't work. Depression is better since admission. In the milieu, patient is safe and appropriate in behavior. Denies SI/SIB/HI upon inquiry. Denies irritability or assaultive ideation. Says she feels safe. 10/29: Continues to report the Trilafon is helpful. Says she didn't sleep as well yesterday and she thinks it's because Klonopin was decreased and her Ambien lowered. The shadows in the peripheral vision are less. She denies any side effects.? Depression is better since admission. In the milieu, patient is safe and appropriate in behavior. Denies SI/SIB/HI upon inquiry. Denies irritability or assaultive ideation. Says she feels safe. 10/30: Patient seen and discussed with team. Patient evaluated this today and upon interview pt reports I should be able to leave today and if i can i want to. Discussed that SW has talked with pt's bf, whom she lives with, and he would like to have a plan for discharge prior to her coming home. Pt is agreeable to stay tonight but says im leaving tomorrow one way or another. Pt reports positive benefit on trilafon increase, I feel better. Says she feels safe to go home. Says her sleep has been better but denies that trazodone has helped, instead says she has been given haldol, benadryl and ativan PRN- which I educated is not the intent of these medication orders, as they are for acute agitation and distress. Pt says when she returns home she plans to resume her regimen of taking klonopin 3 mg and ambien 10 mg for sleep. Denies hallucinations. In the milieu, patient is safe and appropriate in behavior, at time isolative but participating in groups. Denies SI/SIB/HI upon inquiry. Denies irritability or assaultive ideation. Says she feels safe. 10/31: pt found resting in bed.? dressed, wearing make-up, amenable to interview.? would like discharge AMPARO.? states she signed 3-day and spoke with shanae about doing whatever she wants me to do for treatment.? does not seem to know that she is being referred to an IOP; explains the IOP to her again.? no other complaints or requests.? explains we will be getting rid of ativan and haldol tonight, returning to her previous home regimen in preparation for discharge.? she feels well on trilafon 8 TID for the time being.? per staff, active, appropriate in groups.? pleasant and social with peers.? overusing klonopin outpatient.? utox cocaine POS this admission. 11/01: as per yesterday. remains desiring to discharge from the hospital today. denies any safety concerns, reports her AVH have been gone for days now. Pt is a 51 y/o female who carries a dx of delusional disorder, panic disorder, and cocaine use disorder. She has co-morbid chronic lumbar radiculopathy w/ sciatica s/p recent injection. She presented to [facility] on 10/25/21 due to hallucinations, i.e. VH of vicious animals? and reporting she has had ?full conversations? with people who are not there. Per collateral contacts, pt at baseline has been struggling with perceptual disturbances, paranoia, and poor reality testing, although at times she can be coherent and organized. Pt has been struggling with poor sleep, poor appetite, and has been intermittently abusing cocaine. Has hx of abusing pain medication. She is currently overusing her prescribed medications and runs out of them, although she insists that her providers let her take them how she wants. Has been on perphenazine since 04/2021, unclear benefit. Plan: Will lower klonopin from 3 mg at bedtime to 2 mg (prescribed 1 mg TID, however pt has been using 3 mg at night and says she takes an additional one in the day as needed). Will lower ambien to 5 mg. Will continue tizanidine as prescribed (pt has also been overusing this, takes 3 tabs at bedtime). Will consider increasing perphenazine or switching to atypical agent. 10/27: will increase trilafon to 8 mg TID to target hallucinations, delusional thought content, and anxious distress/ mood instability. Will monitor for EPS. 10/28/21: no change 10/29: No change in controlled substances. Trazodone 25 mg HS 10/30: continue medications due to reported benefit, no delusional thought content endorsed, denies A/VH. 10/31: stop ativan and haldol PRNs.? stop trazodone per pt request.? continue prior meds otherwise.? signed 3-day notice.? likely discharge tomorrow. 11/01: discharged as per pt request. did not meet commitment criteria. Time Spent with Patient Time attestation: Total time spent providing and/or coordinating discharge services: Discharge Plan Discharge Patient Disposition: Home, Self-Care Discharge Diagnosis: Acute Psychotic Disorder Referrals: Psych Prescriber: Deepa Talley [Other] - 11/06/21 9:00 am Therapy Referral: [facility] [Other] - 1 Week (A referral has been submitted. You should call them in a couple of days to follow up. ) PHP: [facility] [Other] - 1 Week (This is intensive group therapy for mental health, for two weeks, Saturday through Saturday 9am-2:30pm which is virtual. You declined referral at this time but if you decide you want to engage in the program call the above number. ) [facility] [Physician] - 1 Week Abram Alfred MD [Primary Care Provider] - 1 Week Discharge Medications: New perphenazine 4 mg Tablet 4 mg PO BID PRN (Reason: agitation) 30 Days Qty: 60 0RF Continued tizanidine 4 mg tablet 1 tab PO QID PRN (Reason: muscle spasm) 0RF zolpidem 10 mg tablet 0.5 - 1 tab PO BEDTIME PRN (Reason: insomnia) 0RF perphenazine 4 mg tablet 4 mg PO TID Qty: 90 0RF clonazepam 0.5 mg tablet 1 mg PO BID PRN (Reason: anxiety) 0RF clonazepam 0.5 mg Tablet 1.5 mg BEDTIME 0RF Discharge Orders: Discharge Order (Routine); Ordered 11/01/21 Ordered By: Omar Jean Diet: advance to usual diet Activity on Discharge: As tolerated Stand Alone Forms: Patient Portal Discharge page, Community Support Care Plan Goals: maintain safe and sober independent living in the outpatient treatment setting. Health Concerns: none Plan of Treatment: take medications as prescribed, attend appointments as scheduled Assessment: not at imminent risk of harm to self or others. Discharge Date/Time: 11/01/21 13:00
--- NOTE | 2021-11-01 13:34 | PC.NURSE ---
Patient is pleasant and cooperative upon approach. Patient denies SI/HI/AH/VH. Patient reports feeling ready and safe for discharge. Patient verbalized an understanding of discharge instructions. Patient is in agreement with discharge. Patient denies physical complaints at this time.
== END 2021-11-01 13:00 | disposition home or self-care (01) | DRG 885 ==
LOC: HO.ED 16:37 → HO.PADLT16 10-26 17:55
PROVIDERS: Physician Assistant; Registered Nurse; Admitting Provider Psychiatry & Neurology Psychiatry; Emergency Provider Emergency Medicine; PCP Family Medicine; Visit Provider Psychiatry & Neurology Psychiatry
DX: F22 Delusional disorders (principal); F41.1 Generalized anxiety disorder; F14.10 Cocaine abuse, uncomplicated; G89.29 Other chronic pain; Z20.822 Contact with and (suspected) exposure to COVID-19; Z88.5 Allergy status to narcotic agent; Z79.899 Other long term (current) drug therapy
CPT/HCPCS: 36415; 80048; 80061; 80076; 80307; 81001; 81003; 82077; 82140; 83036; 83735; 85025; 87635; 93005; 99285; J1200; J2060; Q0163

== ENCOUNTER → 2021-11-10 08:38 | Outpatient (BNVA) | payer MEDICARE, OTHER, SELFPAY | PROVIDERS: PCP Family Medicine; Visit Provider Internal Medicine | DX: M54.16 Radiculopathy, lumbar region (principal) | CPT/HCPCS: Q3014 ==

== ENCOUNTER 2021-12-25 17:19 | Inpatient (IN) | payer MEDICARE, OTHER, SELFPAY ==
[2021-12-25 17:27] VITALS: BP 112/84; BP 146/91; PULSE 95; PULSE 98; RESP 16; TEMP 37.2; O2SAT 97; O2SAT 99; BMI 17.7
--- NOTE | 2021-12-25 17:31 | ED_ITS ---
HPI - Psych General Chief Complaint: Psychiatric Symptoms Stated Complaint: CRISIS Time Seen by Provider: 12/25/21 17:23 Source: patient Mode of arrival: ambulatory Limitations: no limitations History of Present Illness HPI Narrative: Patient with history of schizoaffective disorder seen by and in community and Section 12 for increased panic attack for sleep and disorganized thoughts. Patient denies any suicidal ideation unable to sleep for last few nights. Related Data Home Medications Medication Instructions Recorded Confirmed betamethasone dipropionate 0.05 % 1 appl TOPICAL BID 12/25/21 topical cream clindamycin phosphate 1 % topical 1 appl TOPICAL BID 12/25/21 gel clonazepam 1 mg tablet 1 tab PO TID PRN 12/25/21 12/25/21 perphenazine 4 mg tablet 1 tab PO BID 12/25/21 tizanidine 2 mg tablet 1 cap PO QID PRN 12/25/21 tizanidine 4 mg tablet 1 tab PO QID PRN 12/25/21 valacyclovir 1 gram tablet 2 tab PO Q12H PRN 12/25/21 zolpidem 10 mg tablet 0.5 - 1 tab PO BEDTIME PRN 12/25/21 Allergies Allergy/AdvReac Type Severity Reaction Status Date / Time duloxetine [From CYMBALTA] Allergy Unknown UNKNOWN Verified 11/10/21 08:39 morphine [MORPHINE] Allergy Unknown HALLUCINATI Verified 11/10/21 08:39 ONS Phenylpiperazine AdvReac Severe hallucinati Verified 11/10/21 08:39 Antidepressant ons Tetracyclic Antidepressants AdvReac Severe hallucinati Verified 11/10/21 08:39 ons fentanyl [FENTANYL] AdvReac Unknown UNKNOWN Verified 11/10/21 08:39 ketorolac [From TORADOL] AdvReac Unknown UNKNOWN Verified 11/10/21 08:39 Review of Systems Review of Systems: Yes all other systems are reviewed and are negative PMFSH Past Medical History Medical History Anal fissure Anemia Anxiety Cervical radiculitis Cervical spinal cord compression Gonsalves hemangioma Chronic diarrhea Chronic narcotic use Chronic night sweats Chronic pain Contact dermatitis Cough Depression Dysconjugate gaze Dysuria Failed back surgical syndrome Fibromyalgia Gastric stress ulcer Gluteal pain Irritable bowel syndrome Left rib fracture Leg weakness Leukocytosis Low back pain Low ferritin Lumbar radiculitis Lumbar radiculopathy, chronic Medication side effects Mental status change resolved Muscle spasm Neck pain Panic attacks Paralysis Paresthesia of right upper limb 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 Pharyngitis Phlebitis Plantar wart Presbycusis Pyogenic granuloma Rash Right cervical radiculopathy Right elbow pain Sleep disturbance Social anxiety disorder Tachycardia Tubular adenoma Underweight Use of opiates for therapeutic purposes Vaginal discharge Vaginitis Viral gastroenteritis Vitamin D deficiency Yeast vaginitis Surgical History H/O colectomy H/O endoscopy H/O laparoscopy Hx of colonoscopy S/P cervical discectomy Social History Social History Household Members: Children Household Members Other:: boyfriend and son Housing: Unknown / Unable to assess Do you presently have visiting nurse or other home services: No Alcohol intake: unknown Patient Tobacco Use Status: Never used Tobacco Second Hand Smoke Exposure: No Substance Use Type: Crack/Cocaine and Marijuana Advance Directives: No Patient : No service: No Sexual orientation: Did not discuss. Physical Exam Vital Signs: Vital Signs: Last Vital Signs Temp 99.0 F 12/25/21 17:27 Pulse 95 12/25/21 17:27 Resp 16 12/25/21 17:27 BP 146/91 H 12/25/21 17:27 Pulse Ox 97 12/25/21 17:27 BMI result Body Mass Index 17.7 Appearance: Alert. Oriented X3. No acute distress. Eyes: PERRLA, No Nystagmus ENT: Pharynx normal. Oral Mucosa moist Neck: Normal inspection. Neck supple. CVS: Normal heart rate and rhythm. Pulses normal. Respiratory: No respiratory distress. Equal air entry bilateral, Abdomen: Soft and nontender. Bowel sounds are present, no mass palpable, Skin: Skin warm and dry. Normal skin color. Normal skin turgor. Extremities: No lower extremity edema. No calf tenderness psych: Calm and cooperative denies any hallucinations fair judgment denies any suicidal ideation Neuro: Oriented X 3. No motor deficit. No sensory deficit.No cerebellar signs , cranial nerves II-XII intact MDM - Psych MDM Narrative Medical decision making narrative: Patient with bipolar disorder with increased anxiety already Section 12 by in. Will wait for the bed assignment. Labs showed potassium of 3 will give oral potassium Lab Data Attestation: I reviewed the patient's lab results. Result diagrams: 12/25/21 17:59 12/25/21 17:59 Labs: Lab Results 12/25/21 12/25/21 12/25/21 Range/Units 17:59 17:59 17:59 WBC 8.4 (4.8-10.8) X10*3/uL RBC 4.38 (4.20-5.50) X10*6/uL Hgb 11.2 L (12.0-16.0) g/dl Hct 36.4 L (37.0-47.0) % MCV 83.1 (80.0-98.0) fL MCH 25.6 L (27.0-33.0) pg MCHC 30.8 L (31.0-35.0) g/dl RDW 15.1 (11.0-16.0) % Plt Count 585 H (160-400) X10*3/uL MPV 9.1 L (9.4-12.3) fL Immature Gran % (Auto) 0.4 (0.0-0.4) % Neut % (Auto) 70.0 (45-73) % Lymph % (Auto) 21.2 (20-40) % Letcher % (Auto) 7.8 (2-11) % Eos % (Auto) 0.0 (0-4) % Baso % (Auto) 0.6 (0-2) % Lymph # (Auto) 1.8 (1.2-4.9) X10*3/uL Letcher # (Auto) 0.7 (0.1-1.2) X10*3/uL Eos # (Auto) 0.0 (0.0-0.4) X10*3/uL Baso # (Auto) 0.1 (0.0-0.2) X10*3/uL Abs Immat Gran (auto) 0.03 (0.00-0.03) X10*3/uL Absolute Neuts (auto) 5.9 (2.0-8.3) x10*3/uL Absolute Nucleated RBC 0.000 (0.0-0.012) X10*3/uL Nucleated RBC % (auto) 0.0 (0.0-0.2) /100WBC Sodium 143 (135-145) mmol/L Potassium 3.0 L (3.3-5.1) mmol/L Chloride 103 (96-108) mmol/L Carbon Dioxide 29 (22-29) mmol/L Anion Gap 14 (12-20) BUN 8 L (9-16) mg/dL Creatinine 0.76 (0.5-1.4) mg/dL Estim Creat Clear Calc 68.2 Estimated GFR > 60 Random Glucose 89 (60-115) mg/dL Calcium 9.6 (8.4-10.2) mg/dL Total Bilirubin < 0.2 (0.0-1.0) mg/dL AST 15 (5-31) U/L ALT 37 H (0-31) U/L Alkaline Phosphatase 79 (39-117) U/L Total Protein 7.0 (6.5-8.0) g/dL Albumin 4.6 (3.5-5.0) g/dL COVID-19 (SALLY) Negative (Negative) COVID-19 Clin Com See Note Discharge Plan Discharge Clinical Impression: Anxiety, Bipolar disorder Patient Disposition: Still a Patient Prescriptions: No Action tizanidine 2 mg tablet 1 cap PO QID PRN (Reason: muscle spasms) 0RF tizanidine 4 mg tablet 1 tab PO QID PRN (Reason: muscle spasm) 0RF valacyclovir 1 gram tablet 2 tab PO Q12H PRN (Reason: Muscle Spasm) 0RF clonazepam 1 mg tablet 1 tab PO TID PRN (Reason: Anxiety) 0RF clindamycin phosphate 1 % gel 1 appl TOPICAL BID 0RF perphenazine 4 mg tablet 1 tab PO BID 0RF betamethasone dipropionate 0.05 % cream 1 appl TOPICAL BID 0RF zolpidem 10 mg tablet 0.5 - 1 tab PO BEDTIME PRN (Reason: insomnia) 0RF
[2021-12-25] MEDS: LORazepam 1 MG TABLET 2 MG PO (17:39)
[2021-12-25 18:06] LABS: MANUAL DIFF FLAG NO
[2021-12-25 18:07] LABS: Basophils Absolute Auto 0.1 X10*3/uL (0.0-0.2); Basophils Percent Auto 0.6 % (0-2); Hematocrit 36.4 % (37.0-47.0); Hemoglobin 11.2 g/dl (12.0-16.0); Imm Gran Abs Auto 0.03 X10*3/uL (0.00-0.03); Imm Gran Pct Auto 0.4 % (0.0-0.4); Lymphocytes Absolute Auto 1.8 X10*3/uL (1.2-4.9); Lymphocytes Percent Auto 21.2 % (20-40); Mean Corpuscular HGB Conc 30.8 g/dl (31.0-35.0); Mean Corpuscular Hemoglobin 25.6 pg (27.0-33.0); Mean Corpuscular Volume 83.1 fL (80.0-98.0); Mean Platelet Volume 9.1 fL (9.4-12.3); Monocytes Absolute Auto 0.7 X10*3/uL (0.1-1.2); Monocytes Percent Auto 7.8 % (2-11); Neutrophils Absolute Auto 5.9 x10*3/uL (2.0-8.3); Platelet Count 585 X10*3/uL (160-400); Red Blood Count 4.38 X10*6/uL (4.20-5.50); Red Cell Distribution Width 15.1 % (11.0-16.0); White Blood Count 8.4 X10*3/uL (4.8-10.8)
[2021-12-25 18:31] LABS: COVID-19 Test Negative (Negative); IDNOW Serial# 16C4AD1C
[2021-12-25 18:41] LABS: Alanine Aminotransferase 37 U/L (0-31); Albumin Level 4.6 g/dL (3.5-5.0); Alkaline Phosphatase 79 U/L (39-117); Anion Gap 14 (12-20); Aspartate Amino Transferase 15 U/L (5-31); Bilirubin Total < 0.2 mg/dL (0.0-1.0); Blood Urea Nitrogen 8 mg/dL (9-16); Calcium 9.6 mg/dL (8.4-10.2); Carbon Dioxide 29 mmol/L (22-29); Chloride 103 mmol/L (96-108); Creatinine Clr Calc Pharmacy 68.2; Estimated Glomerular Filt Rate > 60; Glucose Random 89 mg/dL (60-115); Sodium 143 mmol/L (135-145)
[2021-12-26] MEDS: Potassium Bicarbonate/Cit AC 25 MEQ TABLET.EFF PO (02:57)
--- NOTE | 2021-12-26 07:13 | PC.NURSE ---
patient appears to remain asleep at present respirations are even and unlabored patient appears in no distress
[2021-12-26] MEDS: Perphenazine 4 MG TABLET PO ×2 (09:13→21:21)
[2021-12-26] MEDS: clonazePAM 1 MG TABLET PO ×4 (09:13→23:36)
[2021-12-26 09:35] LABS: Amphetamine Screen Urine Not Detected (Not Detect); Barbiturates, Urine Not Detected (Not Detect); Benzodiazepines Screen Urine Not Detected (Not Detect); Cannabinoid Screen Urine POSITIVE (Not Detect); Cocaine Screen Urine Not Detected (Not Detect); Fentanyl, urine Not Detected (Not Detect); Opiate Screen Urine Not Detected (Not Detect); Phencyclidine Screen Urine Not Detected (Not Detect)
[2021-12-26] MEDS: LORazepam 1 MG TABLET 2 MG PO (12:38)
[2021-12-26] MEDS: Simethicone 80 MG TAB.CHEW 160 MG PO ×2 (13:15→18:51)
[2021-12-26] MEDS: TiZANidine HCL 4 MG TABLET 8 MG PO (13:18)
[2021-12-26 16:43] VITALS: BP 91/54; PULSE 70; RESP 16; TEMP 36.9; O2SAT 100
[2021-12-26 19:18] VITALS: BP 130/75; PULSE 75; O2SAT 100
[2021-12-26] MEDS: Zolpidem Tartrate 5 MG TABLET PO ×2 (21:18→23:36)
--- NOTE | 2021-12-26 21:21 | PC.NURSE ---
pharmacy called and the am dose for perphenazine 4mg po was documented on 2100 dose. pharmacy stated to document as unscheduled dose.
--- NOTE | 2021-12-26 23:43 | MHC.CARE ---
Pt has been accept for admission to for 12/27.
--- NOTE | 2021-12-27 | ECG_ITS ---
Test Reason : MEDICAL CLEARANCE Blood Pressure : / mmHG Vent. Rate : 063 BPM Atrial Rate : 063 BPM P-R Int : 154 ms QRS Dur : 066 ms QT Int : 418 ms P-R-T Axes : 078 045 055 degrees QTc Int : 427 ms Normal sinus rhythm Possible Left atrial enlargement Low voltage QRS Borderline ECG When compared with ECG of 26-OCT-2021 05:32, No significant change was found Referred By: Myrtle Ramos Electronically Signed By:Payam Cuenca
--- NOTE | 2021-12-27 00:15 | PC.NURSE ---
pt has been seeking medications and states her medications are in the system wrong. All the pt medications have been reviewed and adjusted where needed with dr reyez. pt is anxiouse and relaxation jose david reviewed with pt and she refused. pt is more fixed on her medications per her sleep study with dr Erickson. pt is now in her room door closed, lights dim. and needs at bedside. pt visable on the monitor.
[2021-12-27 00:41] VITALS: BP 126/76; PULSE 79; RESP 15; TEMP 37.1; O2SAT 99
--- NOTE | 2021-12-27 07:45 | PC.NURSE ---
patient at beginning of shift was asleep respirations are even and unlabored patient appears in no distress
--- NOTE | 2021-12-27 08:03 | PC.NURSE ---
patient asleep at beginning of shift, soon thereafter client requested being able to custom order food which staff told blog writer this was an older policy, patient became irritable when told no and accused staff of starving her elevated volume and declined redirection. requesting omelets and bagels.
[2021-12-27] MEDS: clonazePAM 1 MG TABLET PO ×3 (08:36→20:25)
[2021-12-27] MEDS: Perphenazine 8 MG TABLET PO (08:36)
[2021-12-27 12:52] LABS: COVID-19 Test Negative (Negative)
[2021-12-27] MEDS: Simethicone 80 MG TAB.CHEW 160 MG PO ×2 (13:19→17:56)
[2021-12-27 14:58] LABS: Anion Gap 14 (12-20); Blood Urea Nitrogen 7 mg/dL (9-16); Calcium 9.2 mg/dL (8.4-10.2); Carbon Dioxide 28 mmol/L (22-29); Chloride 104 mmol/L (96-108); Creatinine Clr Calc Pharmacy 71.9; Estimated Glomerular Filt Rate > 60; Glucose Random 100 mg/dL (60-115); Potassium 3.9 mmol/L (3.3-5.1); Sodium 142 mmol/L (135-145)
[2021-12-27 18:02] VITALS: BMI 17.8
--- NOTE | 2021-12-27 18:03 | PC.ADMIT ---
Nursing admission note: 51 year old female DX: Unspecified Schizophrenia Spectrum and other psychotic disorder. Referred for admission by care team following home evaluation requested by her brother. Patient signed conditional voluntary for admission. Patient is A+O x4 reports she is having a mental break . Reports lots of trauma in the past year , loss of my father, trouble with my son, 2 failed back surgeries and increased panic attacks. Reports difficulty falling and maintaining sleep. I haven't slept in days . I have COVID fog . I have lost a ton of weight and I don't know why . Patient engages easily, speech is rapid and pressured. Intermittent eye contact, dressed in hospital attire. Concentration is poor. Thoughts are disorganized. Tangential. Reports poor memory. Patient reports feeling overwhelmed with everything . States she feels like she is down and can't get back up. Patient denies AH, reports VH, does not elaborate on content at this time. Medical history includes allergies to Duloxetine, Morphine, Phenylpiperazine antidepressant, Tetracycline antidepressant, Fentanyl and Ketorelac. Reports 2 failed back surgeries November and January 04. States she experiences muscle weakness at times, history of falls at home, stating my legs will give out . TOX screen positive for cannabis. Reports she is not a tobacco user, and rarely uses alcohol. History of cocaine use. COVID screen negative. Refuse flu shot. Patient oriented to unit, signed legal paperwork, placed on unit safety checks.
[2021-12-27 18:35] VITALS: BP 127/59; PULSE 84; RESP 16; TEMP 36.7; O2SAT 99
[2021-12-27] MEDS: TiZANidine HCL 4 MG TABLET 8 MG PO (20:23)
[2021-12-27] MEDS: traZODone HCL 50 MG TABLET PO (20:25)
[2021-12-28 08:42] VITALS: BP 112/53; PULSE 98; RESP 16; TEMP 36.7; O2SAT 98
[2021-12-28 08:43] VITALS: BMI 17.8
[2021-12-28] MEDS: Simethicone 80 MG TAB.CHEW 160 MG PO (08:44)
[2021-12-28] MEDS: clonazePAM 1 MG TABLET PO ×2 (10:03→20:39)
[2021-12-28] MEDS: Perphenazine 4 MG TABLET PO (13:50)
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
[2021-12-28] MEDS: TiZANidine HCL 4 MG TABLET 8 MG PO ×2 (15:34→20:39)
[2021-12-28] MEDS: carBAMazepine ER 100 MG TAB.ER.12H PO (15:35)
[2021-12-28 20:30] VITALS: BP 114/68; PULSE 95; RESP 18; TEMP 36.7; O2SAT 98
[2021-12-28] MEDS: carBAMazepine ER 200 MG TAB.ER.12H PO (20:39)
[2021-12-28] MEDS: Perphenazine 8 MG TABLET PO (20:39)
[2021-12-29] MEDS: Perphenazine 4 MG TABLET PO (08:38)
[2021-12-29] MEDS: carBAMazepine ER 200 MG TAB.ER.12H PO ×2 (08:38→12:00)
[2021-12-29 08:51] VITALS: BP 165/88; PULSE 90; RESP 16; TEMP 36.8; O2SAT 100
[2021-12-29] MEDS: Simethicone 80 MG TAB.CHEW 160 MG PO ×3 (09:05→17:53)
[2021-12-29] MEDS: TiZANidine HCL 4 MG TABLET 8 MG PO ×2 (12:33→19:39)
--- NOTE | 2021-12-29 14:47 | P.PNPSI_ITS ---
Subjective Subjective Date of Service: 12/29/21 Reason For Visit: Psychosis Interim History: pt seated in the milieu quietly interacting with peers. wearing make-up today. less agitated than yesterday, but still pressured and speaking with a loudness much greater than required for the setting. more linear, still demanding various controlled substances, especially klonopin 3 mg at bedtime. Md menard, informs her she appears to be manic and that tegretol is a more suitable treatment and that we will be moving forward with that approach rather than klonopin. pt states she is willing to try tegretol. she c/o thoughts being out of control, anxiety, and insomnia. per staff, somatically focused. dep 06/25. feels like she's crawling out of her skin. Mental Status Exam Mental Status Exam Narrative: adequately dressed and coiffed, wearing make-up today. cooperative. no PMA/ PMR. speech pressured, loud. thoughts more linear but not quite logical. affect constricted, hyper-intense, min-labile. no SI/HI/AVH expressed. somatically pre-occupied, focused on her belief that she has Long COVID and is suffering from TIAs and needs medical treatment. Diagnostics Vital Signs (24Hr): Vital Signs - 24 hr 12/28/21 20:30 12/29/21 08:51 Temperature 98.1 F 98.3 F Pulse Rate 95 90 Respiratory Rate 18 16 Blood Pressure 114/68 165/88 H Pulse Oximetry 98 100 BMI result Body Mass Index 17.8 Labs Results: 12/25/21 17:59 12/27/21 14:09 Labs: Laboratory Results - last 48 hr 12/27/21 14:09 Sodium 142 Potassium 3.9 D Chloride 104 Carbon Dioxide 28 Anion Gap 14 BUN 7 L Creatinine 0.72 Estim Creat Clear Calc 71.9 Estimated GFR > 60 Random Glucose 100 Calcium 9.2 Medications Medications Current Medications Acetaminophen (Acetaminophen 325 Mg Tablet) 650 mg PO Q6H PRN PRN Reason: Headache/Pain Mild Scale (1-3) Al Hydroxide/Mg Hydroxide (Magnesium Hydrox/Alum Hydrox 30 Ml Oral.Susp) 30 ml PO Q6H PRN PRN Reason: Heartburn/Nausea Carbamazepine (Carbamazepine Er 200 Mg Tab.Er.12h) 400 mg PO BID PEDRITO Clonazepam (Clonazepam 1 Mg Tablet) 1 mg PO BID PRN PRN Reason: Anxiety Last Admin: 12/28/21 20:39 Dose: 1 mg Documented by: Hydroxyzine HCl (Hydroxyzine Hcl 25 Mg Tablet) 25 mg PO BEDTIME PRN PRN Reason: Anxiety Magnesium Hydroxide (Milk Of Magnesia 30 Ml Oral.Susp) 30 ml PO DAILY PRN PRN Reason: Constipation Perphenazine (Perphenazine 8 Mg Tablet) 8 mg PO BEDTIME [facility] Last Admin: 12/28/21 20:39 Dose: 8 mg Documented by: Perphenazine (Perphenazine 4 Mg Tablet) 4 mg PO DAILY [facility] Last Admin: 12/29/21 08:38 Dose: 4 mg Documented by: Simethicone (Simethicone 80 Mg Tab.Chew) 160 mg PO QIDWMHS [facility] Last Admin: 12/29/21 12:40 Dose: 160 mg Documented by: Tizanidine HCl (Tizanidine Hcl 4 Mg Tablet) 8 mg PO BID PRN PRN Reason: Muscle Spasm Last Admin: 12/29/21 12:33 Dose: 8 mg Documented by: Trazodone HCl (Trazodone Hcl 50 Mg Tablet) 50 mg PO BEDTIME PRN PRN Reason: Insomnia Last Admin: 12/27/21 20:25 Dose: 50 mg Documented by: Allergies Allergies Allergy/AdvReac Type Severity Reaction Status Date / Time duloxetine [From CYMBALTA] Allergy Unknown UNKNOWN Verified 11/10/21 08:39 morphine [MORPHINE] Allergy Unknown HALLUCINATI Verified 11/10/21 08:39 ONS Phenylpiperazine AdvReac Severe hallucinati Verified 11/10/21 08:39 Antidepressant ons Tetracyclic Antidepressants AdvReac Severe hallucinati Verified 11/10/21 08:39 ons fentanyl [FENTANYL] AdvReac Unknown UNKNOWN Verified 11/10/21 08:39 ketorolac [From TORADOL] AdvReac Unknown UNKNOWN Verified 11/10/21 08:39 Assessment & Plan Assessment & Plan (1) Bipolar disorder: Status: Acute Code(s): F31.9 - Bipolar disorder, unspecified Plan increased perphenazine from 8 mg QHS to 4 mg QAM and 8 mg QHS. started tegretol 200 BID for mood stabilization on 12/28, increased to 400 BID 12/29. do not give ambien. do not increase klonopin. do not increase tizanidine. I spent __25____ minutes with the patient and/or on the patient floor today, greater than?50% of which was spent counseling/coordinating care. Reason for contiued inpatient stay Substantial Risk for: inability to function and rapid decompensation
[2021-12-29 15:34] VITALS: BMI 17.8
--- NOTE | 2021-12-29 15:47 | MHC.CLN ---
NUTRITION WEIGHT APPEARS OVERALL STABLE X 2 MONTHS. SIGNIFICANT WEIGHT LOSS, -15%, X 10 MONTHS. UNDERWEIGHT WITH BMI=17.8. DIET=REGULAR. ADDING ENSURE TID TO PROVIDE ADDITIONAL 1050 KCAL, 60 G PROTEIN.
[2021-12-29 19:49] VITALS: BP 161/88; PULSE 93; RESP 18; TEMP 36.7; O2SAT 99
[2021-12-29] MEDS: carBAMazepine ER 200 MG TAB.ER.12H 400 MG PO (20:44)
[2021-12-29] MEDS: Perphenazine 8 MG TABLET PO (20:45)
[2021-12-29] MEDS: clonazePAM 1 MG TABLET PO (20:45)
[2021-12-30] MEDS: TiZANidine HCL 4 MG TABLET 8 MG PO ×2 (04:06→10:34)
[2021-12-30 08:00] VITALS: BP 123/72; PULSE 80; RESP 16; TEMP 36.7; O2SAT 100
--- NOTE | 2021-12-30 08:48 | HO.PSYCHPN ---
Subjective Subjective Date of Service: 12/30/21 Reason For Visit: Psychosis Subjective Notes: Conditional Voluntary Medical Problems Affecting Mental Status: Yes (Back pain, trouble with word retrieval) Interim History: Patient was seen and discussed in rounds today. Records and plans reviewed. She continues to have a lot of problem with sleeping. She states that she does stay in bed so the nurses observation is understandable but she states that she only sleeps 1 or 2 hours. In the past she states that she has been on 3 mg of Klonopin which I am not too keen about doing. She has been started on Trilafon 4 mg in the morning and 8 at night and I will stop the Trilafon at night and at Thorazine 100 mg. Side effects and issues of orthostasis discussed. She continues to have a lot of somatic complaints. Talked at length about her 50 lb weight loss in 6 weeks and would like a dietary consult which I placed. She also has some issues with her initial diagnosis which she will discuss with Dr. Jean on Saturday. No SI. No other changes were made today Medication Compliance: Yes Side effects from medications: No Attending Groups: Yes Review of Systems Review of Systems Except for weight loss, back pain, word retrieval problems Yes all other systems are reviewed and are negative Mental Status Exam Mental Status Exam Narrative: In today's visit she is alert, oriented and pleasant. Speech is loud. Slightly pressured. Good eye contact. Affect is appropriate and slightly irritable. No signs of psychosis. No SI. Cognitively intact. Judgment is intact Diagnostics Vital Signs (24Hr): Vital Signs - 24 hr 12/29/21 08:51 12/29/21 19:49 Temperature 98.3 F 98.1 F Pulse Rate 90 93 Respiratory Rate 16 18 Blood Pressure 165/88 H 161/88 H Pulse Oximetry 100 99 BMI result Body Mass Index 17.8 Labs Results: 12/25/21 17:59 12/27/21 14:09 Medications Medications Current Medications Acetaminophen (Acetaminophen 325 Mg Tablet) 650 mg PO Q6H PRN PRN Reason: Headache/Pain Mild Scale (1-3) Al Hydroxide/Mg Hydroxide (Magnesium Hydrox/Alum Hydrox 30 Ml Oral.Susp) 30 ml PO Q6H PRN PRN Reason: Heartburn/Nausea Carbamazepine (Carbamazepine Er 200 Mg Tab.Er.12h) 400 mg PO BID PEDRITO Last Admin: 12/29/21 20:44 Dose: 400 mg Documented by: Chlorpromazine HCl (Chlorpromazine Hcl 100 Mg Tablet) 100 mg PO BEDTIME PEDRITO Clonazepam (Clonazepam 1 Mg Tablet) 1 mg PO BID PRN PRN Reason: Anxiety Last Admin: 12/29/21 20:45 Dose: 1 mg Documented by: Hydroxyzine HCl (Hydroxyzine Hcl 25 Mg Tablet) 25 mg PO BEDTIME PRN PRN Reason: Anxiety Magnesium Hydroxide (Milk Of Magnesia 30 Ml Oral.Susp) 30 ml PO DAILY PRN PRN Reason: Constipation Perphenazine (Perphenazine 4 Mg Tablet) 4 mg PO DAILY REPLACED BY [facility] Last Admin: 12/29/21 08:38 Dose: 4 mg Documented by: Simethicone (Simethicone 80 Mg Tab.Chew) 160 mg PO QIDWMHS REPLACED BY [facility] Last Admin: 12/29/21 20:52 Dose: Not Given Documented by: Tizanidine HCl (Tizanidine Hcl 4 Mg Tablet) 8 mg PO BID PRN PRN Reason: Muscle Spasm Last Admin: 12/30/21 04:06 Dose: 8 mg Documented by: Trazodone HCl (Trazodone Hcl 50 Mg Tablet) 50 mg PO BEDTIME PRN PRN Reason: Insomnia Last Admin: 12/27/21 20:25 Dose: 50 mg Documented by: Allergies Allergies Allergy/AdvReac Type Severity Reaction Status Date / Time duloxetine [From CYMBALTA] Allergy Unknown UNKNOWN Verified 11/10/21 08:39 morphine [MORPHINE] Allergy Unknown HALLUCINATI Verified 11/10/21 08:39 ONS Phenylpiperazine AdvReac Severe hallucinati Verified 11/10/21 08:39 Antidepressant ons Tetracyclic Antidepressants AdvReac Severe hallucinati Verified 11/10/21 08:39 ons fentanyl [FENTANYL] AdvReac Unknown UNKNOWN Verified 11/10/21 08:39 ketorolac [From TORADOL] AdvReac Unknown UNKNOWN Verified 11/10/21 08:39 Assessment & Plan Assessment & Plan (1) Bipolar disorder: Status: Acute Code(s): F31.9 - Bipolar disorder, unspecified Plan increased perphenazine from 8 mg QHS to 4 mg QAM and 8 mg QHS. started tegretol 200 BID for mood stabilization on 12/28, increased to 400 BID 12/29. do not give ambien. do not increase klonopin. do not increase tizanidine. 12/30/2021: In continue current regimen and plans. Discontinued the nightly Trilafon and added Thorazine 100 mg which I will re-evaluate tomorrow and possibly increase further. I spent minutes with the patient and/or on the patient floor today, greater than?50% of which was spent counseling/coordinating care. Patient educated on: diagnosis and medication risk/benefits Reason for contiued inpatient stay Substantial Risk for: med/psych decompensation
[2021-12-30] MEDS: Simethicone 80 MG TAB.CHEW 160 MG PO ×3 (09:02→17:49)
[2021-12-30] MEDS: Perphenazine 4 MG TABLET PO (09:02)
[2021-12-30] MEDS: carBAMazepine ER 200 MG TAB.ER.12H 400 MG PO ×2 (09:02→21:14)
[2021-12-30 18:00] VITALS: BP 135/79; PULSE 93; RESP 16; TEMP 36.8; O2SAT 100
[2021-12-30] MEDS: chlorproMAZINE HCl 100 MG TABLET PO ×2 (21:15→22:37)
[2021-12-30] MEDS: clonazePAM 1 MG TABLET PO (21:16)
[2021-12-31 10:00] VITALS: BP 129/60; PULSE 116; RESP 16; TEMP 36.6; O2SAT 100
[2021-12-31] MEDS: Perphenazine 4 MG TABLET PO (10:21)
[2021-12-31] MEDS: carBAMazepine ER 200 MG TAB.ER.12H 400 MG PO ×2 (10:21→20:19)
[2021-12-31] MEDS: Simethicone 80 MG TAB.CHEW 160 MG PO ×3 (10:22→18:03)
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
[2021-12-31] MEDS: TiZANidine HCL 4 MG TABLET 8 MG PO ×2 (12:35→19:22)
[2021-12-31 20:10] VITALS: BP 110/57; PULSE 102; RESP 18; TEMP 36.2; O2SAT 99
[2021-12-31] MEDS: chlorproMAZINE HCl 100 MG TABLET 200 MG PO (20:20)
[2021-12-31] MEDS: clonazePAM 1 MG TABLET PO (20:51)
[2022-01-01 09:00] VITALS: BP 112/60; PULSE 100; RESP 16; TEMP 36.6; O2SAT 98
[2022-01-01] MEDS: Simethicone 80 MG TAB.CHEW 160 MG PO ×3 (09:21→18:12)
[2022-01-01] MEDS: carBAMazepine ER 200 MG TAB.ER.12H 400 MG PO ×2 (09:22→20:56)
[2022-01-01] MEDS: Perphenazine 4 MG TABLET PO (09:22)
--- NOTE | 2022-01-01 11:28 | P.PNPSI_ITS ---
Subjective Subjective Date of Service: 01/01/22 Reason For Visit: Psychosis Interim History: Patient reports that she slept last night and that the Thorazine 200 mg has been helpful. She said she is a little better since she is now eating and sleeping. Patient denies SI or HI. She says she has not had any visual hallucinations up until now, however today she saw out of the corner of her left eye something that looked like a little black fly. She says this is how visual hallucin ations start with her and she says it is usually because of urinary tract infection. Patient denies any dysuria, frequency or urgency however she says that she has a history of UTIs and never has symptoms. Patient is a nurse. Patient says that on discharge she would like a therapist Mental Status Exam Mental Status Exam Narrative: Pt is alert and oriented; behavior is cooperative, friendly and calm; patient is not in distress; dressed in casual attire with combed hair and adequate hygiene; mood is described as better and affect congruent; eye contact appropriate; Speech is a little pressured, but she's able to be interrupted; normal volume and prosody; no psychomotor agitation/retardation present; thought process is goal directed; Thought content is on treatment; otherwise pertinent to relevant topics; denies any SI/HI. Reports VH of little black fly. Patients insight and judgment are impaired. Diagnostics Vital Signs (24Hr): Vital Signs - 24 hr 12/31/21 20:10 Temperature 97.2 F Pulse Rate 102 H Respiratory Rate 18 Blood Pressure 110/57 L Pulse Oximetry 99 BMI result Body Mass Index 17.8 Labs Results: 12/25/21 17:59 12/27/21 14:09 Medications Medications Current Medications Acetaminophen (Acetaminophen 325 Mg Tablet) 650 mg PO Q6H PRN PRN Reason: Headache/Pain Mild Scale (1-3) Al Hydroxide/Mg Hydroxide (Magnesium Hydrox/Alum Hydrox 30 Ml Oral.Susp) 30 ml PO Q6H PRN PRN Reason: Heartburn/Nausea Carbamazepine (Carbamazepine Er 200 Mg Tab.Er.12h) 400 mg PO BID [facility] Last Admin: 01/01/22 09:22 Dose: 400 mg Documented by: Chlorpromazine HCl (Chlorpromazine Hcl 100 Mg Tablet) 200 mg PO BEDTIME [facility] Last Admin: 12/31/21 20:20 Dose: 200 mg Documented by: Chlorpromazine HCl (Chlorpromazine Hcl 100 Mg Tablet) 200 mg PO BEDTIME PRN PRN Reason: insomnia, if scheduled is not effective Clonazepam (Clonazepam 1 Mg Tablet) 1 mg PO BID PRN PRN Reason: axiety Last Admin: 12/31/21 20:51 Dose: 1 mg Documented by: Hydroxyzine HCl (Hydroxyzine Hcl 25 Mg Tablet) 25 mg PO BEDTIME PRN PRN Reason: Anxiety Magnesium Hydroxide (Milk Of Magnesia 30 Ml Oral.Susp) 30 ml PO DAILY PRN PRN Reason: Constipation Perphenazine (Perphenazine 4 Mg Tablet) 4 mg PO DAILY [facility] Last Admin: 01/01/22 09:22 Dose: 4 mg Documented by: Simethicone (Simethicone 80 Mg Tab.Chew) 160 mg PO QIDWMHS [facility] Last Admin: 01/01/22 09:21 Dose: 160 mg Documented by: Tizanidine HCl (Tizanidine Hcl 4 Mg Tablet) 8 mg PO BID PRN PRN Reason: Muscle Spasm Last Admin: 12/31/21 19:22 Dose: 8 mg Documented by: Trazodone HCl (Trazodone Hcl 50 Mg Tablet) 50 mg PO BEDTIME PRN PRN Reason: Insomnia Last Admin: 12/27/21 20:25 Dose: 50 mg Documented by: Allergies Allergies Allergy/AdvReac Type Severity Reaction Status Date / Time duloxetine [From CYMBALTA] Allergy Unknown UNKNOWN Verified 11/10/21 08:39 morphine [MORPHINE] Allergy Unknown HALLUCINATI Verified 11/10/21 08:39 ONS Phenylpiperazine AdvReac Severe hallucinati Verified 11/10/21 08:39 Antidepressant ons Tetracyclic Antidepressants AdvReac Severe hallucinati Verified 11/10/21 08:39 ons fentanyl [FENTANYL] AdvReac Unknown UNKNOWN Verified 11/10/21 08:39 ketorolac [From TORADOL] AdvReac Unknown UNKNOWN Verified 11/10/21 08:39 Assessment & Plan Assessment & Plan (1) Bipolar disorder: Status: Acute Code(s): F31.9 - Bipolar disorder, unspecified Plan increased perphenazine from 8 mg QHS to 4 mg QAM and 8 mg QHS. started tegretol 200 BID for mood stabilization on 12/28, increased to 400 BID 12/29. do not give ambien. do not increase klonopin. do not increase tizanidine. 12/30/2021: In continue current regimen and plans. Discontinued the nightly Trilafon and added Thorazine 100 mg which I will re-evaluate tomorrow and possibly increase further. 12/31: Continue current regimen and plans with increase of Thorazine to 200 mg at night. 01/01 -Continue Thorazine 200 mg as she reports it has been helpful for sleep -Patient reports the visual hallucination of a little black fly that she can see out of the corner of her left eye. She says this is how visual hallucinations typically start and they are often in the context of a UTI; she says that historically when she gets a UTI she does not have accompanying symptoms. -Will order UA I spent minutes with the patient and/or on the patient floor today, greater than?50% of which was spent counseling/coordinating care. Patient educated on: diagnosis and medical condition Informed Consent: understands Reason for contiued inpatient stay Substantial Risk for: rapid decompensation
[2022-01-01] MEDS: TiZANidine HCL 4 MG TABLET 8 MG PO ×2 (15:19→21:01)
--- NOTE | 2022-01-01 15:20 | MHC.CLN ---
NUTRITION CONSULT/FOLLOW UP. PATIENT REPORTED 50# WEIGHT LOSS X 6 WEEKS. REVIEW OF WEIGHT HX SHOWS WEIGHT OVERALL STABLE X 2 MONTHS. SIGNIFICANT WEIGHT LOSS, -15%, X 10 MONTHS. UNDERWEIGHT WITH BMI=17.8. APPEARS THIN BUT WELL NOURISHED. DIET=REGULAR. LIKES AND ACCEPTS ENSURE. ENSURE TID TO PROVIDES ADDITIONAL 1050 KCAL, 60 G PROTEIN. MONITOR INTAKE AND WEIGHT. RD TO FOLLOW WEEKLY.
[2022-01-01 16:35] LABS: Appearance Urine CLEAR; Color Urine YELLOW; Glucose Urine UA NEG (NEG); Leukocyte Esterase Urine NEG (NEG); Nitrite Urine NEG (NEG); PH 5.5 (5.0-8.0); Specific Gravity - Urine >= 1.030 (1.005-1.025); Urine Blood NEG (NEG); Urine Ketones 5 MG/DL (NEG); Urine Protein NEG (NEG-TRACE)
[2022-01-01 16:44] LABS: Bacteria Urine 1+ /LPF; RBC Urine 0-2 /HPF (0); Squamous Epithelial Cell Urine 1+ /LPF; WBC Urine 0 /HPF (0-4)
[2022-01-01 20:52] VITALS: BP 152/74; PULSE 112; TEMP 36.7; O2SAT 97
[2022-01-01] MEDS: chlorproMAZINE HCl 100 MG TABLET 200 MG PO ×2 (20:55→21:50)
[2022-01-01] MEDS: clonazePAM 1 MG TABLET PO (21:02)
[2022-01-02 08:00] VITALS: BP 137/83; PULSE 97; RESP 16; TEMP 36.4; O2SAT 99
[2022-01-02] MEDS: Simethicone 80 MG TAB.CHEW 160 MG PO ×3 (09:16→16:31)
[2022-01-02] MEDS: carBAMazepine ER 200 MG TAB.ER.12H 400 MG PO ×2 (11:49→20:31)
[2022-01-02] MEDS: Acetaminophen 325 MG TABLET 650 MG PO (11:53)
--- NOTE | 2022-01-02 16:11 | PC.NURSE ---
Pt attempted to sit up from lying position to meet with Dr Jean at 1125 and fell onto floor. Struck left posterior head on floor per Dr eJan. Pt initially denied pain, but then stated she had pain as Dr Jean informed her she had struck head. No inflammation, redness, bruising noted. Rated pain #3 on scale 1-10(10 worse) Requested and received Tylenol 650 mg at 1153 with effect. Sedation noted. Difficult to obtain vs as pt unable to decrease movement while talking despite direction. Vs 78/51 p 100 lying right arm. Initially refused ortho vs, but sat up to talk and allowed sitting vs with Dr Jean's recommendation; sitting vs 129/82 p 100. Unable to remain still for standing vs. PERRLA. Refused full body assessment. Able to move all extremities without c/o discomfort.
[2022-01-02] MEDS: TiZANidine HCL 4 MG TABLET 8 MG PO ×2 (17:13→21:25)
[2022-01-02 18:00] VITALS: BP 107/55; PULSE 100; RESP 16; TEMP 36.6; O2SAT 98
--- NOTE | 2022-01-02 18:08 | HO.PSYCHPN ---
Subjective Subjective Date of Service: 01/02/22 Reason For Visit: Psychosis Interim History: pt found sleeping soundly in her bed. roused pt, who sat on the edge of her bed. MD had left the room and asked pt to come to interview room, but she called MD back into room and said she preferred to meet there. she was seated on the edge of the bed, then fell to her side on the bed and then rolled off onto the floor, bumping her head. she was assessed by nursing staff, she was orthostatic with systolic lying down in the 80s and when sitting up nearly 130. she was encouraged to drink fluids. meds reviewed, and she apparently got 400 mg of thorazine last night, 200 scheduled and 200 PRN. decreased PRN to 50 mg. morning perphenazine was still prescribed, so DC'ed that as well. in addition, klonopin PRN was decreased from 1 BID to 0.5 BID. pt was noted to be snoring soundly in her bed late afternoon as well. per staff, pt focused on discharged peer. c/o bugs in peripheral vision. U/A WNL. talkative. worsened anxiety and depression. slept saturday and saturday NOC. informed covering MD that she has been eating OK and sleeping adequately. Mental Status Exam Mental Status Exam Narrative: Pt is alert and oriented once roused; behavior is cooperative, friendly; patient is not in distress; dressed in casual attire with combed hair and adequate hygiene; mood is described as better and affect congruent; eye contact appropriate; Speech is a little pressured, but she's able to be interrupted; normal volume and prosody; no psychomotor agitation/retardation present; thought process is goal directed; Thought content is on treatment; otherwise pertinent to relevant topics; denies any SI/HI. Reports VH of little black fly. Patients insight and judgment are impaired. Diagnostics Vital Signs (24Hr): Vital Signs - 24 hr 01/01/22 20:52 01/02/22 08:00 Temperature 98.1 F 97.6 F Pulse Rate 112 H 97 Respiratory Rate 16 Blood Pressure 152/74 H 137/83 Pulse Oximetry 97 99 BMI result Body Mass Index 17.8 Labs Results: 12/25/21 17:59 12/27/21 14:09 Labs: Laboratory Results - last 48 hr 01/01/22 16:15 Urine Color YELLOW Urine Appearance CLEAR Urine pH 5.5 Ur Specific [place] >= 1.030 H Urine Protein NEG Urine Glucose (UA) NEG Urine Ketones 5 Urine Blood NEG Urine Nitrite NEG Ur Leukocyte Esterase NEG Urine RBC 0-2 Urine WBC 0 Ur Squamous Epith Cells 1+ Urine Bacteria 1+ Medications Medications Current Medications Acetaminophen (Acetaminophen 325 Mg Tablet) 650 mg PO Q6H PRN PRN Reason: Headache/Pain Mild Scale (1-3) Last Admin: 01/02/22 11:53 Dose: 650 mg Documented by: Al Hydroxide/Mg Hydroxide (Magnesium Hydrox/Alum Hydrox 30 Ml Oral.Susp) 30 ml PO Q6H PRN PRN Reason: Heartburn/Nausea Carbamazepine (Carbamazepine Er 200 Mg Tab.Er.12h) 400 mg PO BID [facility] Last Admin: 01/02/22 11:49 Dose: 400 mg Documented by: Chlorpromazine HCl (Chlorpromazine Hcl 100 Mg Tablet) 200 mg PO BEDTIME [facility] Last Admin: 01/01/22 20:55 Dose: 200 mg Documented by: Chlorpromazine HCl (Chlorpromazine Hcl 100 Mg Tablet) 50 mg PO BEDTIME PRN PRN Reason: insomnia, if scheduled is not effective Clonazepam (Clonazepam 0.5 Mg Tablet) 0.5 mg PO BID PRN PRN Reason: axiety Magnesium Hydroxide (Milk Of Magnesia 30 Ml Oral.Susp) 30 ml PO DAILY PRN PRN Reason: Constipation Simethicone (Simethicone 80 Mg Tab.Chew) 160 mg PO TIDWM [facility] Last Admin: 01/02/22 16:31 Dose: 160 mg Documented by: Tizanidine HCl (Tizanidine Hcl 4 Mg Tablet) 8 mg PO BID PRN PRN Reason: Muscle Spasm Last Admin: 01/02/22 17:13 Dose: 8 mg Documented by: Allergies Allergies Allergy/AdvReac Type Severity Reaction Status Date / Time duloxetine [From CYMBALTA] Allergy Unknown UNKNOWN Verified 11/10/21 08:39 morphine [MORPHINE] Allergy Unknown HALLUCINATI Verified 11/10/21 08:39 ONS Phenylpiperazine AdvReac Severe hallucinati Verified 11/10/21 08:39 Antidepressant ons Tetracyclic Antidepressants AdvReac Severe hallucinati Verified 11/10/21 08:39 ons fentanyl [FENTANYL] AdvReac Unknown UNKNOWN Verified 11/10/21 08:39 ketorolac [From TORADOL] AdvReac Unknown UNKNOWN Verified 11/10/21 08:39 Assessment & Plan Assessment & Plan (1) Bipolar disorder: Status: Acute Code(s): F31.9 - Bipolar disorder, unspecified Plan increased perphenazine from 8 mg QHS to 4 mg QAM and 8 mg QHS. started tegretol 200 BID for mood stabilization on 12/28, increased to 400 BID 12/29. do not give ambien. do not increase klonopin. do not increase tizanidine. 12/30/2021: In continue current regimen and plans. Discontinued the nightly Trilafon and added Thorazine 100 mg which I will re-evaluate tomorrow and possibly increase further. 12/31: Continue current regimen and plans with increase of Thorazine to 200 mg at night. 01/01 -Continue Thorazine 200 mg as she reports it has been helpful for sleep -Patient reports the visual hallucination of a little black fly that she can see out of the corner of her left eye. She says this is how visual hallucinations typically start and they are often in the context of a UTI; she says that historically when she gets a UTI she does not have accompanying symptoms. -U/A WNL 01/02: decreased thorazine PRN from 200 mg to 50 mg at HS. tapered klonopin PRN to 0.5 mg BID instead of 1 mg BID. DCed morning perphenazine, as pt is now strictly on thorazine for antipsychotic. I spent __35____ minutes with the patient and/or on the patient floor today, greater than?50% of which was spent counseling/coordinating care. Reason for contiued inpatient stay Substantial Risk for: inability to function and rapid decompensation
[2022-01-02] MEDS: chlorproMAZINE HCl 100 MG TABLET 200 MG PO (20:31)
[2022-01-02 20:40] VITALS: BP 118/71; PULSE 110; TEMP 36.6; O2SAT 95
[2022-01-02 20:42] VITALS: BP 114/59; PULSE 116; O2SAT 97
[2022-01-02] MEDS: chlorproMAZINE HCl 100 MG TABLET 50 MG PO (21:26)
[2022-01-03] MEDS: carBAMazepine ER 200 MG TAB.ER.12H 400 MG PO ×2 (08:57→20:07)
[2022-01-03 09:00] VITALS: BP 117/57; PULSE 101; RESP 16; TEMP 36.6; O2SAT 99
[2022-01-03] MEDS: Simethicone 80 MG TAB.CHEW 160 MG PO ×3 (09:09→18:16)
[2022-01-03] MEDS: TiZANidine HCL 4 MG TABLET 8 MG PO ×2 (12:56→20:08)
--- NOTE | 2022-01-03 15:45 | HO.PSYCHPN ---
Subjective Subjective Date of Service: 01/03/22 Reason For Visit: Psychosis Interim History: pt seated at table in milieu this morning, discoursing with peers. make-up on. amenable to interview. very loud and voluble speech. irritable, critical. able to hear MD's argument for Dx of rebeca, however, and rationale for Tx. in the end, after circuitous conversation, pt seems to agree to MD's plan. will to have tegretol level and other labs drawn saturday. planning to discharge early/mid next week should things continue to go well. not overly sedated today, but alert with clear speech. per staff, slurred speech yesterday. rolled off of bed and hit head on floor. neurochecks over past 24H WNL. isolative, withdrawn. excessively tired into evening. then up and social. Mental Status Exam Mental Status Exam Narrative: Pt is alert and oriented; behavior is cooperative, friendly and calm; patient is not in distress; dressed in casual attire with combed hair and adequate hygiene; mood is described as better and affect congruent; eye contact appropriate; Speech is a little pressured, but she's able to be interrupted; increased loudness, nml prosody; no psychomotor agitation/retardation present; thought process is goal directed; Thought content is on treatment; otherwise pertinent to relevant topics; no SI/HI/AVH expressed. Patient's insight and judgment are impaired. Diagnostics Vital Signs (24Hr): Vital Signs - 24 hr 01/02/22 18:00 01/02/22 20:40 01/02/22 20:42 Temperature 97.8 F 97.9 F Pulse Rate 100 110 H 116 H Respiratory Rate 16 Blood Pressure 107/55 L 118/71 114/59 L Pulse Oximetry 98 95 97 01/03/22 09:00 Temperature 97.9 F Pulse Rate 101 H Respiratory Rate 16 Blood Pressure 117/57 L Pulse Oximetry 99 BMI result Body Mass Index 17.8 Labs Results: 12/25/21 17:59 12/27/21 14:09 Labs: Laboratory Results - last 48 hr 01/01/22 16:15 Urine Color YELLOW Urine Appearance CLEAR Urine pH 5.5 Ur Specific [place] >= 1.030 H Urine Protein NEG Urine Glucose (UA) NEG Urine Ketones 5 Urine Blood NEG Urine Nitrite NEG Ur Leukocyte Esterase NEG Urine RBC 0-2 Urine WBC 0 Ur Squamous Epith Cells 1+ Urine Bacteria 1+ Medications Medications Current Medications Acetaminophen (Acetaminophen 325 Mg Tablet) 650 mg PO Q6H PRN PRN Reason: Headache/Pain Mild Scale (1-3) Last Admin: 01/02/22 11:53 Dose: 650 mg Documented by: Al Hydroxide/Mg Hydroxide (Magnesium Hydrox/Alum Hydrox 30 Ml Oral.Susp) 30 ml PO Q6H PRN PRN Reason: Heartburn/Nausea Carbamazepine (Carbamazepine Er 200 Mg Tab.Er.12h) 400 mg PO BID [facility] Last Admin: 01/03/22 08:57 Dose: 400 mg Documented by: Chlorpromazine HCl (Chlorpromazine Hcl 100 Mg Tablet) 200 mg PO BEDTIME [facility] Last Admin: 01/02/22 20:31 Dose: 200 mg Documented by: Chlorpromazine HCl (Chlorpromazine Hcl 25 Mg Tablet) 50 mg PO BEDTIME PRN PRN Reason: insomnia, if scheduled is not effective Clonazepam (Clonazepam 0.5 Mg Tablet) 0.5 mg PO BID PRN PRN Reason: axiety Magnesium Hydroxide (Milk Of Magnesia 30 Ml Oral.Susp) 30 ml PO DAILY PRN PRN Reason: Constipation Simethicone (Simethicone 80 Mg Tab.Chew) 160 mg PO TIDWM [facility] Last Admin: 01/03/22 12:51 Dose: 160 mg Documented by: Tizanidine HCl (Tizanidine Hcl 4 Mg Tablet) 8 mg PO BID PRN PRN Reason: Muscle Spasm Last Admin: 01/03/22 12:56 Dose: 8 mg Documented by: Allergies Allergies Allergy/AdvReac Type Severity Reaction Status Date / Time duloxetine [From CYMBALTA] Allergy Unknown UNKNOWN Verified 11/10/21 08:39 morphine [MORPHINE] Allergy Unknown HALLUCINATI Verified 11/10/21 08:39 ONS Phenylpiperazine AdvReac Severe hallucinati Verified 11/10/21 08:39 Antidepressant ons Tetracyclic Antidepressants AdvReac Severe hallucinati Verified 11/10/21 08:39 ons fentanyl [FENTANYL] AdvReac Unknown UNKNOWN Verified 11/10/21 08:39 ketorolac [From TORADOL] AdvReac Unknown UNKNOWN Verified 11/10/21 08:39 Assessment & Plan Assessment & Plan (1) Bipolar disorder: Status: Acute Code(s): F31.9 - Bipolar disorder, unspecified Plan increased perphenazine from 8 mg QHS to 4 mg QAM and 8 mg QHS. started tegretol 200 BID for mood stabilization on 12/28, increased to 400 BID 12/29. do not give ambien. do not increase klonopin. do not increase tizanidine. 12/30/2021: In continue current regimen and plans. Discontinued the nightly Trilafon and added Thorazine 100 mg which I will re-evaluate tomorrow and possibly increase further. 12/31: Continue current regimen and plans with increase of Thorazine to 200 mg at night. 01/01 -Continue Thorazine 200 mg as she reports it has been helpful for sleep -Patient reports the visual hallucination of a little black fly that she can see out of the corner of her left eye. She says this is how visual hallucinations typically start and they are often in the context of a UTI; she says that historically when she gets a UTI she does not have accompanying symptoms. -U/A WNL 01/02: decreased thorazine PRN from 200 mg to 50 mg at HS. tapered klonopin PRN to 0.5 mg BID instead of 1 mg BID. DCed morning perphenazine, as pt is now strictly on thorazine for antipsychotic. I spent ___35___ minutes with the patient and/or on the patient floor today, greater than?50% of which was spent counseling/coordinating care. Reason for contiued inpatient stay Substantial Risk for: inability to function and rapid decompensation
[2022-01-03 18:00] VITALS: BP 131/67; PULSE 106; RESP 16; TEMP 36.6; O2SAT 96
[2022-01-03] MEDS: chlorproMAZINE HCl 100 MG TABLET 200 MG PO (20:07)
[2022-01-03] MEDS: clonazePAM 0.5 MG TABLET PO (20:08)
[2022-01-04] MEDS: TiZANidine HCL 4 MG TABLET 8 MG PO ×2 (04:11→13:38)
[2022-01-04 07:00] VITALS: BMI 19.5
[2022-01-04 08:43] VITALS: BP 97/56; PULSE 80; RESP 14; TEMP 36.6; O2SAT 97
[2022-01-04] MEDS: carBAMazepine ER 200 MG TAB.ER.12H 400 MG PO ×2 (08:50→20:39)
[2022-01-04] MEDS: Simethicone 80 MG TAB.CHEW 160 MG PO ×3 (08:51→19:00)
--- NOTE | 2022-01-04 13:57 | HO.PSYCHPN ---
Subjective Subjective Date of Service: 01/04/22 Reason For Visit: Psychosis Interim History: pt reports continued lack of panic attacks and anxiety. reports some difficulty sleeping last night and asks that thorazine be increased to 250 mg at HS, which is accommodated. aware of labs to be drawn in the morning. Dx and med ed done. pt reports she has gained 10 lbs since admission, which is great for her, as she had been underweight prior to admission. per staff, denies dep/anx. denies SI/HI. no overt psychosis or delusions. thoughts clearer, feeling less overwhelmed. isolative to room most of the time. took klonopin and zanaflex with HS meds. Mental Status Exam Mental Status Exam Narrative: Pt is alert and oriented; behavior is cooperative, friendly and calm; patient is not in distress; dressed in casual attire with combed hair and adequate hygiene; mood is described as better and affect congruent; eye contact appropriate; Speech is a little pressured, but she's able to be interrupted; increased loudness, nml prosody; no psychomotor agitation/retardation present; thought process is goal directed; Thought content is on treatment; otherwise pertinent to relevant topics; no SI/HI/AVH expressed. Patient's insight and judgment are improving. Diagnostics Vital Signs (24Hr): Vital Signs - 24 hr 01/03/22 18:00 01/04/22 08:43 Temperature 97.9 F 98 F Pulse Rate 106 H 80 Respiratory Rate 16 14 Blood Pressure 131/67 97/56 L Pulse Oximetry 96 97 BMI result Body Mass Index 19.5 Labs Results: 12/25/21 17:59 12/27/21 14:09 Medications Medications Current Medications Acetaminophen (Acetaminophen 325 Mg Tablet) 650 mg PO Q6H PRN PRN Reason: Headache/Pain Mild Scale (1-3) Last Admin: 01/02/22 11:53 Dose: 650 mg Documented by: Al Hydroxide/Mg Hydroxide (Magnesium Hydrox/Alum Hydrox 30 Ml Oral.Susp) 30 ml PO Q6H PRN PRN Reason: Heartburn/Nausea Carbamazepine (Carbamazepine Er 200 Mg Tab.Er.12h) 400 mg PO BID [facility] Last Admin: 01/04/22 08:50 Dose: 400 mg Documented by: Chlorpromazine HCl (Chlorpromazine Hcl 25 Mg Tablet) 50 mg PO BEDTIME PRN PRN Reason: insomnia, if scheduled is not effective Chlorpromazine HCl (Chlorpromazine Hcl 100 Mg Tablet) 250 mg PO BEDTIME [facility] Clonazepam (Clonazepam 0.5 Mg Tablet) 0.5 mg PO BID PRN PRN Reason: axiety Last Admin: 01/03/22 20:08 Dose: 0.5 mg Documented by: Magnesium Hydroxide (Milk Of Magnesia 30 Ml Oral.Susp) 30 ml PO DAILY PRN PRN Reason: Constipation Simethicone (Simethicone 80 Mg Tab.Chew) 160 mg PO TIDWM [facility] Last Admin: 01/04/22 13:14 Dose: 160 mg Documented by: Tizanidine HCl (Tizanidine Hcl 4 Mg Tablet) 8 mg PO BID PRN PRN Reason: Muscle Spasm Last Admin: 01/04/22 13:38 Dose: 8 mg Documented by: Allergies Allergies Allergy/AdvReac Type Severity Reaction Status Date / Time duloxetine [From CYMBALTA] Allergy Unknown UNKNOWN Verified 11/10/21 08:39 morphine [MORPHINE] Allergy Unknown HALLUCINATI Verified 11/10/21 08:39 ONS Phenylpiperazine AdvReac Severe hallucinati Verified 11/10/21 08:39 Antidepressant ons Tetracyclic Antidepressants AdvReac Severe hallucinati Verified 11/10/21 08:39 ons fentanyl [FENTANYL] AdvReac Unknown UNKNOWN Verified 11/10/21 08:39 ketorolac [From TORADOL] AdvReac Unknown UNKNOWN Verified 11/10/21 08:39 Assessment & Plan Assessment & Plan (1) Bipolar disorder: Status: Acute Code(s): F31.9 - Bipolar disorder, unspecified Plan increased perphenazine from 8 mg QHS to 4 mg QAM and 8 mg QHS. started tegretol 200 BID for mood stabilization on 12/28, increased to 400 BID 12/29. do not give ambien. do not increase klonopin. do not increase tizanidine. 12/30/2021: In continue current regimen and plans. Discontinued the nightly Trilafon and added Thorazine 100 mg which I will re-evaluate tomorrow and possibly increase further. 12/31: Continue current regimen and plans with increase of Thorazine to 200 mg at night. 01/01 -Continue Thorazine 200 mg as she reports it has been helpful for sleep -Patient reports the visual hallucination of a little black fly that she can see out of the corner of her left eye. She says this is how visual hallucinations typically start and they are often in the context of a UTI; she says that historically when she gets a UTI she does not have accompanying symptoms. -U/A WNL 01/02: decreased thorazine PRN from 200 mg to 50 mg at HS. tapered klonopin PRN to 0.5 mg BID instead of 1 mg BID. DCed morning perphenazine, as pt is now strictly on thorazine for antipsychotic. 01/04: increased HS thorazine to 250 mg, PRN left at 50. return of some difficulty remaining asleep. reports improved mood and thoughts. I spent ___35___ minutes with the patient and/or on the patient floor today, greater than?50% of which was spent counseling/coordinating care. Patient educated on: diagnosis and medication risk/benefits Reason for contiued inpatient stay Substantial Risk for: inability to function and rapid decompensation
[2022-01-04] MEDS: clonazePAM 0.5 MG TABLET PO (19:02)
[2022-01-04 20:25] VITALS: BP 120/56; PULSE 89; RESP 16; TEMP 36.6; O2SAT 97
[2022-01-04] MEDS: chlorproMAZINE HCl 100 MG TABLET 250 MG PO (20:39)
[2022-01-04] MEDS: chlorproMAZINE HCl 25 MG TABLET 50 MG PO (21:34)
[2022-01-05] MEDS: carBAMazepine ER 200 MG TAB.ER.12H 400 MG PO ×2 (09:08→20:34)
[2022-01-05] MEDS: Simethicone 80 MG TAB.CHEW 160 MG PO ×3 (09:08→17:29)
[2022-01-05 09:15] LABS: Mean Corpuscular Volume 80.6 fL (80.0-98.0); Mean Platelet Volume 9.4 fL (9.4-12.3); Platelet Count 454 X10*3/uL (160-400); Red Cell Distribution Width 15.4 % (11.0-16.0); White Blood Count 6.2 X10*3/uL (4.8-10.8)
[2022-01-05 09:20] VITALS: BP 132/62; PULSE 86; RESP 20; TEMP 36.8; O2SAT 99
[2022-01-05 09:31] LABS: Alanine Aminotransferase 10 U/L (0-31); Albumin Level 3.8 g/dL (3.5-5.0); Alkaline Phosphatase 61 U/L (39-117); Anion Gap 11 (12-20); Aspartate Amino Transferase 12 U/L (5-31); Bilirubin Direct < 0.2 mg/dL (0.0-0.5); Bilirubin Total 0.2 mg/dL (0.0-1.0); Blood Urea Nitrogen 10 mg/dL (9-16); Calcium 8.7 mg/dL (8.4-10.2); Carbon Dioxide 27 mmol/L (22-29); Chloride 103 mmol/L (96-108); Creatinine Clr Calc Pharmacy 91.8; Estimated Glomerular Filt Rate > 60; Glucose Random 90 mg/dL (60-115); Potassium 4.4 mmol/L (3.3-5.1); Sodium 137 mmol/L (135-145); Total Protein 5.8 g/dL (6.5-8.0)
[2022-01-05 10:02] LABS: Carbamazepine Tegretol 9.9 mcg/mL (5.0-12.0)
[2022-01-05] MEDS: TiZANidine HCL 4 MG TABLET 8 MG PO (12:24)
--- NOTE | 2022-01-05 14:57 | P.PNPSI_ITS ---
Subjective Subjective Date of Service: 01/05/22 Reason For Visit: Psychosis Interim History: pt seen in her room at her preference. she reports she slept well last night. her mood is better, her thoughts are improved - more organized and slower. labs reviewed, tegretol noted to be well within therapeutic range, no changes indicated. pt asks about pernicious anemia, as she has been anemic for a long time, asks for B12 level. per staff, feeling improved. mostly cheerful, supportive. denies AVH, denies SI. Mental Status Exam Mental Status Exam Narrative: Pt is alert and oriented; behavior is cooperative, friendly and calm; patient is not in distress; dressed in casual attire with combed hair and adequate hygiene; mood is described as better and affect congruent; eye contact appropriate; Speech is a little not pressured; nml loudness, nml prosody; no psychomotor agitation/retardation present; thought process is goal directed; Thought content is on treatment; otherwise pertinent to relevant topics; no SI/HI/AVH expressed. Patient's insight and judgment are improving. Diagnostics Vital Signs (24Hr): Vital Signs - 24 hr 01/04/22 20:25 01/05/22 09:20 Temperature 97.9 F 98.3 F Pulse Rate 89 86 Respiratory Rate 16 20 Blood Pressure 120/56 L 132/62 Pulse Oximetry 97 99 BMI result Body Mass Index 19.5 Labs Results: 01/05/22 08:29 01/05/22 08:29 Labs: Laboratory Results - last 48 hr 01/05/22 01/05/22 08:29 08:29 WBC 6.2 RBC 3.60 L Hgb 9.0 L Hct 29.0 L D MCV 80.6 MCH 25.0 L MCHC 31.0 RDW 15.4 Plt Count 454 H MPV 9.4 Absolute Nucleated RBC 0.000 Nucleated RBC % (auto) 0.0 Sodium 137 Potassium 4.4 Chloride 103 Carbon Dioxide 27 Anion Gap 11 L BUN 10 Creatinine 0.62 Estim Creat Clear Calc 91.8 Estimated GFR > 60 Random Glucose 90 Calcium 8.7 Total Bilirubin 0.2 Direct Bilirubin < 0.2 AST 12 ALT 10 Alkaline Phosphatase 61 D Total Protein 5.8 L Albumin 3.8 Carbamazepine 9.9 Medications Medications Current Medications Acetaminophen (Acetaminophen 325 Mg Tablet) 650 mg PO Q6H PRN PRN Reason: Headache/Pain Mild Scale (1-3) Last Admin: 01/02/22 11:53 Dose: 650 mg Documented by: Al Hydroxide/Mg Hydroxide (Magnesium Hydrox/Alum Hydrox 30 Ml Oral.Susp) 30 ml PO Q6H PRN PRN Reason: Heartburn/Nausea Carbamazepine (Carbamazepine Er 200 Mg Tab.Er.12h) 400 mg PO BID [facility] Last Admin: 01/05/22 09:08 Dose: 400 mg Documented by: Chlorpromazine HCl (Chlorpromazine Hcl 25 Mg Tablet) 50 mg PO BEDTIME PRN PRN Reason: insomnia, if scheduled is not effective Last Admin: 01/04/22 21:34 Dose: 50 mg Documented by: Chlorpromazine HCl (Chlorpromazine Hcl 100 Mg Tablet) 250 mg PO BEDTIME [facility] Last Admin: 01/04/22 20:39 Dose: 250 mg Documented by: Clonazepam (Clonazepam 0.5 Mg Tablet) 0.5 mg PO BID PRN PRN Reason: axiety Last Admin: 01/04/22 19:02 Dose: 0.5 mg Documented by: Magnesium Hydroxide (Milk Of Magnesia 30 Ml Oral.Susp) 30 ml PO DAILY PRN PRN Reason: Constipation Simethicone (Simethicone 80 Mg Tab.Chew) 160 mg PO TIDWM [facility] Last Admin: 01/05/22 12:24 Dose: 160 mg Documented by: Tizanidine HCl (Tizanidine Hcl 4 Mg Tablet) 8 mg PO BID PRN PRN Reason: Muscle Spasm Last Admin: 01/05/22 12:24 Dose: 8 mg Documented by: Allergies Allergies Allergy/AdvReac Type Severity Reaction Status Date / Time duloxetine [From CYMBALTA] Allergy Unknown UNKNOWN Verified 11/10/21 08:39 morphine [MORPHINE] Allergy Unknown HALLUCINATI Verified 11/10/21 08:39 ONS Phenylpiperazine AdvReac Severe hallucinati Verified 11/10/21 08:39 Antidepressant ons Tetracyclic Antidepressants AdvReac Severe hallucinati Verified 11/10/21 08:39 ons fentanyl [FENTANYL] AdvReac Unknown UNKNOWN Verified 11/10/21 08:39 ketorolac [From TORADOL] AdvReac Unknown UNKNOWN Verified 11/10/21 08:39 Assessment & Plan Assessment & Plan (1) Bipolar disorder: Status: Acute Code(s): F31.9 - Bipolar disorder, unspecified Plan increased perphenazine from 8 mg QHS to 4 mg QAM and 8 mg QHS. started tegretol 200 BID for mood stabilization on 12/28, increased to 400 BID 12/29. do not give ambien. do not increase klonopin. do not increase tizanidine. 12/30/2021: In continue current regimen and plans. Discontinued the nightly Trilafon and added Thorazine 100 mg which I will re-evaluate tomorrow and possibly increase further. 12/31: Continue current regimen and plans with increase of Thorazine to 200 mg at night. 01/01 -Continue Thorazine 200 mg as she reports it has been helpful for sleep -Patient reports the visual hallucination of a little black fly that she can see out of the corner of her left eye. She says this is how visual hallucina tions typically start and they are often in the context of a UTI; she says that historically when she gets a UTI she does not have accompanying symptoms. -U/A WNL 01/02: decreased thorazine PRN from 200 mg to 50 mg at HS. tapered klonopin PRN to 0.5 mg BID instead of 1 mg BID. DCed morning perphenazine, as pt is now strictly on thorazine for antipsychotic. 01/04: increased HS thorazine to 250 mg, PRN left at 50. return of some difficulty remaining asleep. reports improved mood and thoughts. 01/05: got good sleep last night. feeling much improved. check b12/folate/TSH/T4. I spent __25____ minutes with the patient and/or on the patient floor today, greater than?50% of which was spent counseling/coordinating care. Reason for contiued inpatient stay Substantial Risk for: inability to function and rapid decompensation
[2022-01-05 16:01] LABS: TSH reflex Free T4 1.02 uIU/mL (0.32-4.0)
[2022-01-05 16:16] LABS: Folate 12.4 ng/mL (> or = 4.0); Vitamin B12 273 pg/mL (200-900)
[2022-01-05 20:25] VITALS: BP 129/80; PULSE 103; TEMP 37; O2SAT 95
[2022-01-05] MEDS: chlorproMAZINE HCl 25 MG TABLET 50 MG PO ×2 (20:31→20:38)
[2022-01-05] MEDS: chlorproMAZINE HCl 100 MG TABLET 200 MG PO (20:38)
[2022-01-06] MEDS: clonazePAM 0.5 MG TABLET PO ×2 (03:44→21:00)
[2022-01-06] MEDS: TiZANidine HCL 4 MG TABLET 8 MG PO ×2 (04:11→21:00)
[2022-01-06] MEDS: Acetaminophen 325 MG TABLET 650 MG PO ×2 (04:12→21:05)
[2022-01-06 05:00] VITALS: BP 100/70; BP 130/81; BP 133/77; PULSE 80; PULSE 85; TEMP 36.6; O2SAT 99
--- NOTE | 2022-01-06 05:11 | PC.NURSE ---
fall-patient came out of her room, requested snack then leaned against the wall and slid to the floor. patient was on the floor for a brief moment then got up quickly on her own and ran into her room. when questioned about behavior stated ''you were told I hallucinated, right?'' allowed for assessment, no noted injury, patient denied injury. orthostatic changes noted when BP taken. given food as requested. steam and power supervisor notified. changed from routine checks (15 minute) to 5 minute checks. ORTHO; lay 99% RA, 80, 130/81, 97.8. sit 99%, 85, 133/77. stand 99%, 85, 100/70
[2022-01-06 09:15] VITALS: BP 112/55; PULSE 80; RESP 20; TEMP 36.6; O2SAT 96
[2022-01-06] MEDS: carBAMazepine ER 200 MG TAB.ER.12H 400 MG PO ×2 (09:40→20:59)
[2022-01-06] MEDS: Simethicone 80 MG TAB.CHEW 160 MG PO ×3 (09:41→17:46)
--- NOTE | 2022-01-06 11:25 | HO.PSYCHPN ---
Subjective Subjective Date of Service: 01/06/22 Reason For Visit: Psychosis Interim History: pt seen in her room at her preference. she reports she slept well last night. her mood is better, her thoughts are improved - more organized and slower. labs reviewed, tegretol noted to be well within therapeutic range, no changes indicated. pt asks about pernicious anemia, as she has been anemic for a long time, asks for B12 level. per staff, feeling improved. mostly cheerful, supportive. denies AVH, denies SI. 01/06: Mood better. Feels organized. Hx ?fall last night. Hx Orthostatic drops in BP. Noted to be on Thorazine. Preoccupied by bowel function and Simethicone Review of Systems Review of Systems Weight and sleep Yes all other systems are reviewed and are negative Mental Status Exam Mental Status Exam Narrative: Pt is alert and oriented; behavior is cooperative, friendly and calm; patient is not in distress; dressed in casual attire with combed hair and adequate hygiene; mood is described as better and affect congruent; eye contact appropriate; Speech is a little not pressured; nml loudness, nml prosody; no psychomotor agitation/retardation present; thought process is goal directed; Thought content is on treatment; otherwise pertinent to relevant topics; no SI/HI/AVH expressed. Patient's insight and judgment are improving. Diagnostics Vital Signs (24Hr): Vital Signs - 24 hr 01/05/22 20:25 01/06/22 05:00 01/06/22 09:15 Temperature 98.6 F 97.8 F 97.8 F Pulse Rate 103 H 85 80 Respiratory Rate 20 Blood Pressure 129/80 100/70 112/55 L Pulse Oximetry 95 99 96 BMI result Body Mass Index 19.5 Labs Results: 01/05/22 08:29 01/05/22 08:29 Labs: Laboratory Results - last 48 hr 01/05/22 01/05/22 01/05/22 08:29 08:29 15:10 WBC 6.2 RBC 3.60 L Hgb 9.0 L Hct 29.0 L D MCV 80.6 MCH 25.0 L MCHC 31.0 RDW 15.4 Plt Count 454 H MPV 9.4 Absolute Nucleated RBC 0.000 Nucleated RBC % (auto) 0.0 Sodium 137 Potassium 4.4 Chloride 103 Carbon Dioxide 27 Anion Gap 11 L BUN 10 Creatinine 0.62 Estim Creat Clear Calc 91.8 Estimated GFR > 60 Random Glucose 90 Calcium 8.7 Total Bilirubin 0.2 Direct Bilirubin < 0.2 AST 12 ALT 10 Alkaline Phosphatase 61 D Total Protein 5.8 L Albumin 3.8 Vitamin B12 273 Folate 12.4 TSH Carbamazepine 9.9 01/05/22 15:10 WBC RBC Hgb Hct MCV MCH MCHC RDW Plt Count MPV Absolute Nucleated RBC Nucleated RBC % (auto) Sodium Potassium Chloride Carbon Dioxide Anion Gap BUN Creatinine Estim Creat Clear Calc Estimated GFR Random Glucose Calcium Total Bilirubin Direct Bilirubin AST ALT Alkaline Phosphatase Total Protein Albumin Vitamin B12 Folate TSH 1.02 Carbamazepine Medications Medications Current Medications Acetaminophen (Acetaminophen 325 Mg Tablet) 650 mg PO Q6H PRN PRN Reason: Headache/Pain Mild Scale (1-3) Last Admin: 01/06/22 04:12 Dose: 650 mg Documented by: Al Hydroxide/Mg Hydroxide (Magnesium Hydrox/Alum Hydrox 30 Ml Oral.Susp) 30 ml PO Q6H PRN PRN Reason: Heartburn/Nausea Carbamazepine (Carbamazepine Er 200 Mg Tab.Er.12h) 400 mg PO BID [facility] Last Admin: 01/06/22 09:40 Dose: 400 mg Documented by: Chlorpromazine HCl (Chlorpromazine Hcl 25 Mg Tablet) 50 mg PO BEDTIME PRN PRN Reason: insomnia, if scheduled is not effective Last Admin: 01/05/22 20:31 Dose: 50 mg Documented by: Chlorpromazine HCl (Chlorpromazine Hcl 100 Mg Tablet) 200 mg PO BEDTIME [facility] Last Admin: 01/05/22 20:38 Dose: 200 mg Documented by: Chlorpromazine HCl (Chlorpromazine Hcl 25 Mg Tablet) 50 mg PO BEDTIME [facility] Last Admin: 01/05/22 20:38 Dose: 50 mg Documented by: Clonazepam (Clonazepam 0.5 Mg Tablet) 0.5 mg PO BID PRN PRN Reason: axiety Last Admin: 01/06/22 03:44 Dose: 0.5 mg Documented by: Magnesium Hydroxide (Milk Of Magnesia 30 Ml Oral.Susp) 30 ml PO DAILY PRN PRN Reason: Constipation Simethicone (Simethicone 80 Mg Tab.Chew) 160 mg PO TID [facility] Tizanidine HCl (Tizanidine Hcl 4 Mg Tablet) 8 mg PO BID PRN PRN Reason: Muscle Spasm Last Admin: 01/06/22 04:11 Dose: 8 mg Documented by: Allergies Allergies Allergy/AdvReac Type Severity Reaction Status Date / Time duloxetine [From CYMBALTA] Allergy Unknown UNKNOWN Verified 11/10/21 08:39 morphine [MORPHINE] Allergy Unknown HALLUCINATI Verified 11/10/21 08:39 ONS Phenylpiperazine AdvReac Severe hallucinati Verified 11/10/21 08:39 Antidepressant ons Tetracyclic Antidepressants AdvReac Severe hallucinati Verified 11/10/21 08:39 ons fentanyl [FENTANYL] AdvReac Unknown UNKNOWN Verified 11/10/21 08:39 ketorolac [From TORADOL] AdvReac Unknown UNKNOWN Verified 11/10/21 08:39 Assessment & Plan Assessment & Plan (1) Bipolar disorder: Status: Acute Code(s): F31.9 - Bipolar disorder, unspecified Plan increased perphenazine from 8 mg QHS to 4 mg QAM and 8 mg QHS. started tegretol 200 BID for mood stabilization on 12/28, increased to 400 BID 12/29. do not give ambien. do not increase klonopin. do not increase tizanidine. 12/30/2021: In continue current regimen and plans. Discontinued the nightly Trilafon and added Thorazine 100 mg which I will re-evaluate tomorrow and possibly increase further. 12/31: Continue current regimen and plans with increase of Thorazine to 200 mg at night. 01/01 -Continue Thorazine 200 mg as she reports it has been helpful for sleep -Patient reports the visual hallucination of a little black fly that she can see out of the corner of her left eye. She says this is how visual hallucinations typically start and they are often in the context of a UTI; she says that historically when she gets a UTI she does not have accompanying symptoms. -U/A WNL 01/02: decreased thorazine PRN from 200 mg to 50 mg at HS. tapered klonopin PRN to 0.5 mg BID instead of 1 mg BID. DCed morning perphenazine, as pt is now strictly on thorazine for antipsychotic. 01/04: increased HS thorazine to 250 mg, PRN left at 50. return of some difficulty remaining asleep. reports improved mood and thoughts. 01/05: got good sleep last night. feeling much improved. check b12/folate/TSH/T4. 01/06: Ct Rx plan. Decrease Thorazine to 200 mg I spent minutes with the patient and/or on the patient floor today, greater than?50% of which was spent counseling/coordinating care. Reason for contiued inpatient stay Substantial Risk for: inability to function
[2022-01-06 20:55] VITALS: BP 124/71; PULSE 104; TEMP 37.1; O2SAT 97
[2022-01-06 20:56] VITALS: BP 126/61; PULSE 110
[2022-01-06] MEDS: chlorproMAZINE HCl 100 MG TABLET 200 MG PO (21:00)
[2022-01-07] MEDS: chlorproMAZINE HCl 25 MG TABLET 50 MG PO ×2 (03:07→21:14)
[2022-01-07 06:00] VITALS: BP 133/67; PULSE 103; RESP 16; TEMP 36.6; O2SAT 98
[2022-01-07 06:39] LABS: Thyroid Stimulating Hormone 1.96 uIU/mL (0.32-4.0)
[2022-01-07] MEDS: Simethicone 80 MG TAB.CHEW 160 MG PO ×3 (09:32→17:56)
[2022-01-07] MEDS: carBAMazepine ER 200 MG TAB.ER.12H 400 MG PO ×2 (09:32→21:08)
[2022-01-07] MEDS: TiZANidine HCL 4 MG TABLET 8 MG PO ×2 (12:50→21:08)
[2022-01-07] MEDS: Acetaminophen 325 MG TABLET 650 MG PO ×2 (12:50→21:08)
--- NOTE | 2022-01-07 14:53 | HO.PSYCHPN ---
Subjective Subjective Date of Service: 01/07/22 Reason For Visit: Psychosis Subjective Notes: Conditional Voluntary Interim History: pt seen in her room at her preference. she reports she slept well last night. her mood is better, her thoughts are improved - more organized and slower. labs reviewed, tegretol noted to be well within therapeutic range, no changes indicated. pt asks about pernicious anemia, as she has been anemic for a long time, asks for B12 level. per staff, feeling improved. mostly cheerful, supportive. denies AVH, denies SI. 01/06: Mood better. Feels organized. Hx ?fall last night. Hx Orthostatic drops in BP. Noted to be on Thorazine. Preoccupied by bowel function and Simethicone 01/07: Mood stable. complained bitterly that the unit does not have a soft couch. Poor sleep bc watched TV after night meds. We discussed sleep hygiene. VS noted Review of Systems Review of Systems Weight and sleep Yes all other systems are reviewed and are negative Mental Status Exam Mental Status Exam Narrative: Pt is alert and oriented; behavior is cooperative, friendly and calm; patient is not in distress; dressed in casual attire with combed hair and adequate hygiene; mood is described as better and affect congruent; eye contact appropriate; Speech is a little not pressured; nml loudness, nml prosody; no psychomotor agitation/retardation present; thought process is goal directed; Thought content is on treatment; otherwise pertinent to relevant topics; no SI/HI/AVH expressed. Patient's insight and judgment are improving. Diagnostics Vital Signs (24Hr): Vital Signs - 24 hr 01/06/22 20:55 01/06/22 20:56 01/07/22 06:00 Temperature 98.7 F 97.9 F Pulse Rate 104 H 110 H 103 H Respiratory Rate 16 Blood Pressure 124/71 126/61 133/67 Pulse Oximetry 97 98 BMI result Body Mass Index 19.5 Labs Results: 01/05/22 08:29 01/05/22 08:29 Labs: Laboratory Results - last 48 hr 01/05/22 01/05/22 01/07/22 15:10 15:10 05:37 Vitamin B12 273 Folate 12.4 TSH 1.02 1.96 Free T4 0.80 Medications Medications Current Medications Acetaminophen (Acetaminophen 325 Mg Tablet) 650 mg PO Q6H PRN PRN Reason: Headache/Pain Mild Scale (1-3) Last Admin: 01/07/22 12:50 Dose: 650 mg Documented by: Al Hydroxide/Mg Hydroxide (Magnesium Hydrox/Alum Hydrox 30 Ml Oral.Susp) 30 ml PO Q6H PRN PRN Reason: Heartburn/Nausea Carbamazepine (Carbamazepine Er 200 Mg Tab.Er.12h) 400 mg PO BID [facility] Last Admin: 01/07/22 09:32 Dose: 400 mg Documented by: Chlorpromazine HCl (Chlorpromazine Hcl 25 Mg Tablet) 50 mg PO BEDTIME PRN PRN Reason: insomnia, if scheduled is not effective Last Admin: 01/07/22 03:07 Dose: 50 mg Documented by: Chlorpromazine HCl (Chlorpromazine Hcl 100 Mg Tablet) 200 mg PO BEDTIME [facility] Last Admin: 01/06/22 21:00 Dose: 200 mg Documented by: Clonazepam (Clonazepam 0.5 Mg Tablet) 0.5 mg PO BID PRN PRN Reason: axiety Last Admin: 01/06/22 21:00 Dose: 0.5 mg Documented by: Magnesium Hydroxide (Milk Of Magnesia 30 Ml Oral.Susp) 30 ml PO DAILY PRN PRN Reason: Constipation Simethicone (Simethicone 80 Mg Tab.Chew) 160 mg PO TIDWM [facility] Last Admin: 01/07/22 12:51 Dose: 160 mg Documented by: Tizanidine HCl (Tizanidine Hcl 4 Mg Tablet) 8 mg PO BID PRN PRN Reason: Muscle Spasm Last Admin: 01/07/22 12:50 Dose: 8 mg Documented by: Allergies Allergies Allergy/AdvReac Type Severity Reaction Status Date / Time duloxetine [From CYMBALTA] Allergy Unknown UNKNOWN Verified 11/10/21 08:39 morphine [MORPHINE] Allergy Unknown HALLUCINATI Verified 11/10/21 08:39 ONS Phenylpiperazine AdvReac Severe hallucinati Verified 11/10/21 08:39 Antidepressant ons Tetracyclic Antidepressants AdvReac Severe hallucinati Verified 11/10/21 08:39 ons fentanyl [FENTANYL] AdvReac Unknown UNKNOWN Verified 11/10/21 08:39 ketorolac [From TORADOL] AdvReac Unknown UNKNOWN Verified 11/10/21 08:39 Assessment & Plan Assessment & Plan (1) Bipolar disorder: Status: Acute Code(s): F31.9 - Bipolar disorder, unspecified Plan increased perphenazine from 8 mg QHS to 4 mg QAM and 8 mg QHS. started tegretol 200 BID for mood stabilization on 12/28, increased to 400 BID 12/29. do not give ambien. do not increase klonopin. do not increase tizanidine. 12/30/2021: In continue current regimen and plans. Discontinued the nightly Trilafon and added Thorazine 100 mg which I will re-evaluate tomorrow and possibly increase further. 12/31: Continue current regimen and plans with increase of Thorazine to 200 mg at night. 01/01 -Continue Thorazine 200 mg as she reports it has been helpful for sleep -Patient reports the visual hallucination of a little black fly that she can see out of the corner of her left eye. She says this is how visual hallucinations typically start and they are often in the context of a UTI; she says that historically when she gets a UTI she does not have accompanying symptoms. -U/A WNL 01/02: decreased thorazine PRN from 200 mg to 50 mg at HS. tapered klonopin PRN to 0.5 mg BID instead of 1 mg BID. DCed morning perphenazine, as pt is now strictly on thorazine for antipsychotic. 01/04: increased HS thorazine to 250 mg, PRN left at 50. return of some difficulty remaining asleep. reports improved mood and thoughts. 01/05: got good sleep last night. feeling much improved. check b12/folate/TSH/T4. 01/06: Ct Rx plan. Decrease Thorazine to 200 mg 01/07: Ct Rx plan. Monitor insomnia I spent minutes with the patient and/or on the patient floor today, greater than?50% of which was spent counseling/coordinating care. Reason for contiued inpatient stay Substantial Risk for: inability to function
[2022-01-07 18:00] VITALS: BP 132/84; PULSE 102; RESP 18; TEMP 36.4; O2SAT 98
[2022-01-07] MEDS: clonazePAM 0.5 MG TABLET PO (21:08)
[2022-01-07] MEDS: chlorproMAZINE HCl 100 MG TABLET 200 MG PO (21:08)
[2022-01-08 08:53] VITALS: BP 141/75; PULSE 108; RESP 18; TEMP 36.6; O2SAT 98
[2022-01-08] MEDS: carBAMazepine ER 200 MG TAB.ER.12H 400 MG PO (09:00)
[2022-01-08] MEDS: Simethicone 80 MG TAB.CHEW 160 MG PO ×3 (09:01→18:06)
[2022-01-08] MEDS: Acetaminophen 325 MG TABLET 650 MG PO (09:08)
[2022-01-08] MEDS: TiZANidine HCL 4 MG TABLET 8 MG PO ×2 (15:03→20:54)
--- NOTE | 2022-01-08 15:08 | PC.NURSE ---
Patient reports she 'popped a hernia.' Small area of [place] umbilical protuberance noted . Patient reports mild discomfort at site. Dr. Jean notified. Hospitalist consult ordered.
--- NOTE | 2022-01-08 15:22 | MHC.CLN ---
F/U THIS WEEKS WT UP OVERALL; BMI 19.5 DIET=REGULAR. LIKES AND ACCEPTS ENSURE. ENSURE TID TO PROVIDES ADDITIONAL 1050 KCAL, 60 G PROTEIN. MONITOR INTAKE AND WEIGHT. RD FOLLOWS WEEKLY.
--- NOTE | 2022-01-08 15:22 | HO.PSYCHPN ---
Subjective Subjective Date of Service: 01/08/22 Reason For Visit: Psychosis Interim History: largely calm, cooperative. slightly increased rate, amount, and loudness of speech. otherwise reasonable and logical. agreeable to increase HS tegretol from 400 to 600. accepts feedback that medical staff services coordinator felt she was a bit more manic over the weekend. states she slept extremely well last night. per staff, slept 3 hours Saturday night. C/O AVH. anx 8/10. couldn't reach BF and was concerned he'd left her. watching TV alone. speech pressured, disorganized, tangential. med-compliant. Mental Status Exam Mental Status Exam Narrative: Pt is alert and oriented; behavior is cooperative, friendly and calm; patient is not in distress; dressed in casual attire with combed hair and adequate hygiene; mood is described is euthymic and affect congruent; eye contact appropriate; Speech is slightly increased in amount, rate, and loudness; nml prosody; no psychomotor agitation/retardation present; thought process is goal directed; Thought content is on treatment; otherwise pertinent to relevant topics; no SI/HI/AVH expressed. Patient's insight and judgment are improving. Diagnostics Vital Signs (24Hr): Vital Signs - 24 hr 01/07/22 18:00 01/08/22 08:53 Temperature 97.6 F 97.8 F Pulse Rate 102 H 108 H Respiratory Rate 18 18 Blood Pressure 132/84 141/75 H Pulse Oximetry 98 98 BMI result Body Mass Index 19.5 Labs Results: 01/05/22 08:29 01/05/22 08:29 Labs: Laboratory Results - last 48 hr 01/07/22 05:37 TSH 1.96 Free T4 0.80 Medications Medications Current Medications Acetaminophen (Acetaminophen 325 Mg Tablet) 650 mg PO Q6H PRN PRN Reason: Headache/Pain Mild Scale (1-3) Last Admin: 01/08/22 09:08 Dose: 650 mg Documented by: Al Hydroxide/Mg Hydroxide (Magnesium Hydrox/Alum Hydrox 30 Ml Oral.Susp) 30 ml PO Q6H PRN PRN Reason: Heartburn/Nausea Carbamazepine (Carbamazepine Er 200 Mg Tab.Er.12h) 400 mg PO DAILY [facility] Carbamazepine (Carbamazepine Er 200 Mg Tab.Er.12h) 600 mg PO BEDTIME [facility] Chlorpromazine HCl (Chlorpromazine Hcl 25 Mg Tablet) 50 mg PO BEDTIME PRN PRN Reason: insomnia, if scheduled is not effective Last Admin: 01/07/22 21:14 Dose: 50 mg Documented by: Chlorpromazine HCl (Chlorpromazine Hcl 100 Mg Tablet) 200 mg PO BEDTIME [facility] Last Admin: 01/07/22 21:08 Dose: 200 mg Documented by: Clonazepam (Clonazepam 0.5 Mg Tablet) 0.5 mg PO BID PRN PRN Reason: anxiety/restlessness Last Admin: 01/07/22 21:08 Dose: 0.5 mg Documented by: Magnesium Hydroxide (Milk Of Magnesia 30 Ml Oral.Susp) 30 ml PO DAILY PRN PRN Reason: Constipation Simethicone (Simethicone 80 Mg Tab.Chew) 160 mg PO TIDWM [facility] Last Admin: 01/08/22 13:04 Dose: 160 mg Documented by: Tizanidine HCl (Tizanidine Hcl 4 Mg Tablet) 8 mg PO BID PRN PRN Reason: Muscle Spasm Last Admin: 01/08/22 15:03 Dose: 8 mg Documented by: Allergies Allergies Allergy/AdvReac Type Severity Reaction Status Date / Time duloxetine [From CYMBALTA] Allergy Unknown UNKNOWN Verified 11/10/21 08:39 morphine [MORPHINE] Allergy Unknown HALLUCINATI Verified 11/10/21 08:39 ONS Phenylpiperazine AdvReac Severe hallucinati Verified 11/10/21 08:39 Antidepressant ons Tetracyclic Antidepressants AdvReac Severe hallucinati Verified 11/10/21 08:39 ons fentanyl [FENTANYL] AdvReac Unknown UNKNOWN Verified 11/10/21 08:39 ketorolac [From TORADOL] AdvReac Unknown UNKNOWN Verified 11/10/21 08:39 Assessment & Plan Assessment & Plan (1) Bipolar disorder: Status: Acute Code(s): F31.9 - Bipolar disorder, unspecified Plan increased perphenazine from 8 mg QHS to 4 mg QAM and 8 mg QHS. started tegretol 200 BID for mood stabilization on 12/28, increased to 400 BID 12/29. do not give ambien. do not increase klonopin. do not increase tizanidine. 12/30/2021: In continue current regimen and plans. Discontinued the nightly Trilafon and added Thorazine 100 mg which I will re-evaluate tomorrow and possibly increase further. 12/31: Continue current regimen and plans with increase of Thorazine to 200 mg at night. 01/01 -Continue Thorazine 200 mg as she reports it has been helpful for sleep -Patient reports the visual hallucination of a little black fly that she can see out of the corner of her left eye. She says this is how visual hallucinations typically start and they are often in the context of a UTI; she says that historically when she gets a UTI she does not have accompanying symptoms. -U/A WNL 01/02: decreased thorazine PRN from 200 mg to 50 mg at HS. tapered klonopin PRN to 0.5 mg BID instead of 1 mg BID. DCed morning perphenazine, as pt is now strictly on thorazine for antipsychotic. 01/04: increased HS thorazine to 250 mg, PRN left at 50. return of some difficulty remaining asleep. reports improved mood and thoughts. 01/05: got good sleep last night. feeling much improved. check b12/folate/TSH/T4. 01/06: Ct Rx plan. Decrease Thorazine to 200 mg 01/07: Ct Rx plan. Monitor insomnia 01/08: slept well last night. RN report lapse to more manic SX over w/e. increase HS tegretol to 600 mg (am still 400). I spent ___25___ minutes with the patient and/or on the patient floor today, greater than?50% of which was spent counseling/coordinating care. Reason for contiued inpatient stay Substantial Risk for: inability to function and rapid decompensation
[2022-01-08 18:00] VITALS: BP 128/74; PULSE 110; RESP 18; TEMP 36.8; O2SAT 98
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
[2022-01-08] MEDS: chlorproMAZINE HCl 25 MG TABLET 50 MG PO (20:53)
[2022-01-08] MEDS: chlorproMAZINE HCl 100 MG TABLET 200 MG PO (20:53)
[2022-01-08] MEDS: carBAMazepine ER 200 MG TAB.ER.12H 600 MG PO (20:53)
[2022-01-08] MEDS: clonazePAM 0.5 MG TABLET PO (20:55)
[2022-01-09] MEDS: Acetaminophen 325 MG TABLET 650 MG PO (08:52)
[2022-01-09] MEDS: carBAMazepine ER 200 MG TAB.ER.12H 400 MG PO (08:53)
[2022-01-09] MEDS: Simethicone 80 MG TAB.CHEW 160 MG PO ×3 (08:53→17:53)
[2022-01-09 09:19] VITALS: BP 123/85; PULSE 115; RESP 18; TEMP 36.2; O2SAT 97
[2022-01-09] MEDS: clonazePAM 0.5 MG TABLET PO ×2 (10:49→20:35)
[2022-01-09] MEDS: TiZANidine HCL 4 MG TABLET 8 MG PO ×2 (10:50→15:02)
--- NOTE | 2022-01-09 13:48 | P.PNPSI_ITS ---
Subjective Subjective Date of Service: 01/09/22 Reason For Visit: Psychosis Interim History: pt remains a bit loud and with increased force of speech today. also asks for at least the third time about MD's pills comments on the first day of her meeting MD this admission. long-winded, explains everything she would like MD to communicate to her outpt provider. c/o blurry vision, which she attributes to tegretol, as well as returned insomnia last night. MD counsels patience but agrees to increase scheduled thorazine to 250 mg QHS from 200 mg QHS. pt asks for med ed for tegretol and thorazine, RN aware. per staff, yelling some last night about peer targeting her. slept well. Mental Status Exam Mental Status Exam Narrative: Pt is alert and oriented; behavior is cooperative, friendly and calm; patient is not in distress; dressed in casual attire with combed hair and adequate hygiene; mood is described is euthymic and affect congruent; eye contact appropriate; Speech is slightly increased in amount, rate, and loudness; nml prosody; no psychomotor agitation/retardation present; thought process is goal directed; Thought content is on treatment; otherwise pertinent to relevant topics; no SI/HI/AVH expressed. Patient's insight and judgment are improving. Diagnostics Vital Signs (24Hr): Vital Signs - 24 hr 01/08/22 18:00 01/09/22 09:19 Temperature 98.2 F 97.2 F Pulse Rate 110 H 115 H Respiratory Rate 18 18 Blood Pressure 128/74 123/85 Pulse Oximetry 98 97 BMI result Body Mass Index 19.5 Labs Results: 01/05/22 08:29 01/05/22 08:29 Medications Medications Current Medications Acetaminophen (Acetaminophen 325 Mg Tablet) 650 mg PO Q6H PRN PRN Reason: Headache/Pain Mild Scale (1-3) Last Admin: 01/09/22 08:52 Dose: 650 mg Documented by: Al Hydroxide/Mg Hydroxide (Magnesium Hydrox/Alum Hydrox 30 Ml Oral.Susp) 30 ml PO Q6H PRN PRN Reason: Heartburn/Nausea Carbamazepine (Carbamazepine Er 200 Mg Tab.Er.12h) 400 mg PO DAILY [facility] Last Admin: 01/09/22 08:53 Dose: 400 mg Documented by: Carbamazepine (Carbamazepine Er 200 Mg Tab.Er.12h) 600 mg PO BEDTIME [facility] Last Admin: 01/08/22 20:53 Dose: 600 mg Documented by: Chlorpromazine HCl (Chlorpromazine Hcl 25 Mg Tablet) 50 mg PO BEDTIME PRN PRN Reason: insomnia, if scheduled is not effective Last Admin: 01/08/22 20:53 Dose: 50 mg Documented by: Chlorpromazine HCl (Chlorpromazine Hcl 100 Mg Tablet) 250 mg PO BEDTIME [facility] Clonazepam (Clonazepam 0.5 Mg Tablet) 0.5 mg PO BID PRN PRN Reason: anxiety/restlessness Last Admin: 01/09/22 10:49 Dose: 0.5 mg Documented by: Magnesium Hydroxide (Milk Of Magnesia 30 Ml Oral.Susp) 30 ml PO DAILY PRN PRN Reason: Constipation Simethicone (Simethicone 80 Mg Tab.Chew) 160 mg PO TIDWM [facility] Last Admin: 01/09/22 13:03 Dose: 160 mg Documented by: Tizanidine HCl (Tizanidine Hcl 4 Mg Tablet) 8 mg PO BID PRN PRN Reason: Muscle Spasm Last Admin: 01/09/22 10:50 Dose: 8 mg Documented by: Allergies Allergies Allergy/AdvReac Type Severity Reaction Status Date / Time duloxetine [From CYMBALTA] Allergy Unknown UNKNOWN Verified 11/10/21 08:39 morphine [MORPHINE] Allergy Unknown HALLUCINATI Verified 11/10/21 08:39 ONS Phenylpiperazine AdvReac Severe hallucinati Verified 11/10/21 08:39 Antidepressant ons Tetracyclic Antidepressants AdvReac Severe hallucinati Verified 11/10/21 08:39 ons fentanyl [FENTANYL] AdvReac Unknown UNKNOWN Verified 11/10/21 08:39 ketorolac [From TORADOL] AdvReac Unknown UNKNOWN Verified 11/10/21 08:39 Assessment & Plan Assessment & Plan (1) Bipolar disorder: Status: Acute Code(s): F31.9 - Bipolar disorder, unspecified Plan increased perphenazine from 8 mg QHS to 4 mg QAM and 8 mg QHS. started tegretol 200 BID for mood stabilization on 12/28, increased to 400 BID 12/29. do not give ambien. do not increase klonopin. do not increase tizanidine. 12/30/2021: In continue current regimen and plans. Discontinued the nightly Trilafon and added Thorazine 100 mg which I will re-evaluate tomorrow and possibly increase further. 12/31: Continue current regimen and plans with increase of Thorazine to 200 mg at night. 01/01 -Continue Thorazine 200 mg as she reports it has been helpful for sleep -Patient reports the visual hallucination of a little black fly that she can see out of the corner of her left eye. She says this is how visual hallucinations typically start and they are often in the context of a UTI; she says that historically when she gets a UTI she does not have accompanying symptoms. -U/A WNL 01/02: decreased thorazine PRN from 200 mg to 50 mg at HS. tapered klonopin PRN to 0.5 mg BID instead of 1 mg BID. DCed morning perphenazine, as pt is now strictly on thorazine for antipsychotic. 01/04: increased HS thorazine to 250 mg, PRN left at 50. return of some difficul ty remaining asleep. reports improved mood and thoughts. 01/05: got good sleep last night. feeling much improved. check b12/folate/TSH/T4. 01/06: Ct Rx plan. Decrease Thorazine to 200 mg 01/07: Ct Rx plan. Monitor insomnia 01/08: slept well last night. RN report lapse to more manic SX over w/e. in crease HS tegretol to 600 mg (am still 400). 01/09: c/o blurry vision and insomnia. HS thorazine increased to 250 mg. surgery consult for umbilical hernia complaint. I spent __25____ minutes with the patient and/or on the patient floor today, greater than?50% of which was spent counseling/coordinating care. Reason for contiued inpatient stay Substantial Risk for: inability to function and rapid decompensation
[2022-01-09] MEDS: Ibuprofen 800 MG TABLET PO (14:24)
--- NOTE | 2022-01-09 19:34 | PC.NURSE ---
Late entry: educational materials related to medications given to patient as requested.
[2022-01-09 20:25] VITALS: BP 127/87; PULSE 116; RESP 19; TEMP 36.9; O2SAT 97
[2022-01-09] MEDS: chlorproMAZINE HCl 100 MG TABLET 250 MG PO (20:30)
[2022-01-09] MEDS: carBAMazepine ER 200 MG TAB.ER.12H 600 MG PO (20:32)
[2022-01-09] MEDS: chlorproMAZINE HCl 25 MG TABLET 50 MG PO (20:35)
[2022-01-10] MEDS: carBAMazepine ER 200 MG TAB.ER.12H 400 MG PO (08:25)
[2022-01-10 08:27] VITALS: BP 108/56; PULSE 100; RESP 16; TEMP 36.7; O2SAT 97
[2022-01-10] MEDS: Simethicone 80 MG TAB.CHEW 160 MG PO ×3 (08:29→18:25)
[2022-01-10] MEDS: TiZANidine HCL 4 MG TABLET 8 MG PO ×2 (13:17→21:01)
[2022-01-10] MEDS: Acetaminophen 325 MG TABLET 650 MG PO ×2 (13:18→21:01)
--- NOTE | 2022-01-10 13:27 | P.PNPSI_ITS ---
Subjective Subjective Date of Service: 01/10/22 Reason For Visit: Psychosis Interim History: pt presents as somewhat loud and voluble. states she slept well again last night, which she attributes to having used earplugs. c/o feeling too slowed down. educated re rebeca and experience normalized. she is concerned she has slowed down too much. agrees to [facility] gil[facility]. states she feels less slowed down as the day progresses but does not seem open to decreasing thorazine at HS bcse she is afraid she will become unable to sleep again. per staff, 3-day is up on saturday. feeling unsafe around a particular male peer. irritable, confrontational, ticking time bomb. surgical consult for umbilical hernia complaint pending. less irritable on eves. Mental Status Exam Mental Status Exam Narrative: Pt is alert and oriented; behavior is cooperative, friendly and calm; patient is not in distress; dressed in casual attire with combed hair and adequate hygiene; mood is described is euthymic and affect congruent; eye contact appropriate; Speech is increased in amount, rate, and loudness; nml prosody; no psychomotor agitation/retardation present; thought process is goal directed; Thought content is on treatment; otherwise pertinent to relevant topics; no SI/HI/AVH expressed. Patient's insight and judgment are improving. Diagnostics Vital Signs (24Hr): Vital Signs - 24 hr 01/09/22 20:25 01/10/22 08:27 Temperature 98.5 F 98.1 F Pulse Rate 116 H 100 Respiratory Rate 19 16 Blood Pressure 127/87 108/56 L Pulse Oximetry 97 97 BMI result Body Mass Index 19.5 Labs Results: 01/05/22 08:29 01/05/22 08:29 Medications Medications Current Medications Acetaminophen (Acetaminophen 325 Mg Tablet) 650 mg PO Q6H PRN PRN Reason: Headache/Pain Mild Scale (1-3) Last Admin: 01/10/22 13:18 Dose: 650 mg Documented by: Al Hydroxide/Mg Hydroxide (Magnesium Hydrox/Alum Hydrox 30 Ml Oral.Susp) 30 ml PO Q6H PRN PRN Reason: Heartburn/Nausea Carbamazepine (Carbamazepine Er 200 Mg Tab.Er.12h) 400 mg PO DAILY [facility] Last Admin: 01/10/22 08:25 Dose: 400 mg Documented by: Carbamazepine (Carbamazepine Er 200 Mg Tab.Er.12h) 600 mg PO BEDTIME [facility] Last Admin: 01/09/22 20:32 Dose: 600 mg Documented by: Chlorpromazine HCl (Chlorpromazine Hcl 25 Mg Tablet) 50 mg PO BEDTIME PRN PRN Reason: insomnia, if scheduled is not effective Last Admin: 01/09/22 20:35 Dose: 50 mg Documented by: Chlorpromazine HCl (Chlorpromazine Hcl 100 Mg Tablet) 250 mg PO BEDTIME [facility] Last Admin: 01/09/22 20:30 Dose: 250 mg Documented by: Ibuprofen (Ibuprofen 800 Mg Tablet) 800 mg PO Q8H PRN PRN Reason: Pain, Moderate (Pain Scale 4-6 Last Admin: 01/09/22 14:24 Dose: 800 mg Documented by: Magnesium Hydroxide (Milk Of Magnesia 30 Ml Oral.Susp) 30 ml PO DAILY PRN PRN Reason: Constipation Simethicone (Simethicone 80 Mg Tab.Chew) 160 mg PO TIDWM [facility] Last Admin: 01/10/22 13:20 Dose: 160 mg Documented by: Tizanidine HCl (Tizanidine Hcl 4 Mg Tablet) 8 mg PO BID PRN PRN Reason: Muscle Spasm Last Admin: 01/10/22 13:17 Dose: 8 mg Documented by: Allergies Allergies Allergy/AdvReac Type Severity Reaction Status Date / Time duloxetine [From CYMBALTA] Allergy Unknown UNKNOWN Verified 11/10/21 08:39 morphine [MORPHINE] Allergy Unknown HALLUCINATI Verified 11/10/21 08:39 ONS Phenylpiperazine AdvReac Severe hallucinati Verified 11/10/21 08:39 Antidepressant ons Tetracyclic Antidepressants AdvReac Severe hallucinati Verified 11/10/21 08:39 ons fentanyl [FENTANYL] AdvReac Unknown UNKNOWN Verified 11/10/21 08:39 ketorolac [From TORADOL] AdvReac Unknown UNKNOWN Verified 11/10/21 08:39 Assessment & Plan Assessment & Plan (1) Bipolar disorder: Status: Acute Code(s): F31.9 - Bipolar disorder, unspecified Plan increased perphenazine from 8 mg QHS to 4 mg QAM and 8 mg QHS. started tegretol 200 BID for mood stabilization on 12/28, increased to 400 BID . do not give ambien. do not increase klonopin. do not increase tizanidine. 12/30/2021: In continue current regimen and plans. Discontinued the nightly Trilafon and added Thorazine 100 mg which I will re-evaluate tomorrow and possibly increase further. 12/31: Continue current regimen and plans with increase of Thorazine to 200 mg at night. 01/01 -Continue Thorazine 200 mg as she reports it has been helpful for sleep -Patient reports the visual hallucination of a little black fly that she can see out of the corner of her left eye. She says this is how visual hallucinations typically start and they are often in the context of a UTI; she says that historically when she gets a UTI she does not have accompanying symptoms. -U/A WNL 01/02: decreased thorazine PRN from 200 mg to 50 mg at HS. tapered klonopin PRN to 0.5 mg BID instead of 1 mg BID. DCed morning perphenazine, as pt is now strictly on thorazine for antipsychotic. 01/04: increased HS thorazine to 250 mg, PRN left at 50. return of some difficulty remaining asleep. reports improved mood and thoughts. 01/05: got good sleep last night. feeling much improved. check b12/folate/TSH/T4. 01/06: Ct Rx plan. Decrease Thorazine to 200 mg 01/07: Ct Rx plan. Monitor insomnia 01/08: slept well last night. RN report lapse to more manic SX over w/e. increase HS tegretol to 600 mg (am still 400). 01/09: c/o blurry vision and insomnia. HS thorazine increased to 250 mg. surgery consult for umbilical hernia complaint. 01/10: c/o feeling too slowed down. klonopin DC'ed. next would decrease thorazine if continues. discharging saturday. check labs saturday morning. I spent __35____ minutes with the patient and/or on the patient floor today, greater than?50% of which was spent counseling/coordinating care. Patient educated on: diagnosis and medication risk/benefits Reason for contiued inpatient stay Substantial Risk for: inability to function and rapid decompensation
--- NOTE | 2022-01-10 15:08 | PM.CNGS ---
History of Present Illness Consult details Consult date: 01/10/22 Reason for consult: abdominal pain Narrative: 51-year-old female patient with bipolar disorder and previous history of multiple back surgeries, with new onset complaint of umbilical hernia. She 1st noted symptoms approximately 3 days ago with no particular inciting event. She noted a lump which seemed to increase in size with straining and was painful to palpation. Since this time the lump has decreased in size and is now asymptomatic. She denies a previous history of surgery in the umbilicus. She denies nausea, vomiting, fever, or chills. She denies a previous history of hernias or hernia surgery. Review of Systems Review of Systems: Yes all other systems are reviewed and are negative Constitutional: Constitutional: Denies chills and Denies fever(s) Cardiovascular: Cardiovascular: Denies dyspnea Respiratory: Respiratory: Denies cough and Denies dyspnea Gastrointestinal: Gastrointestinal: Denies abdominal pain, Denies constipation, Denies diarrhea, Denies nausea and Denies vomiting Musculoskeletal: Musculoskeletal: Reports back pain PMFSH Past Medical History Medical History Anal fissure Anemia Anxiety Cervical radiculitis Cervical spinal cord compression Gonsalves hemangioma Chronic diarrhea Chronic narcotic use Chronic night sweats Chronic pain Contact dermatitis Cough Depression Dysconjugate gaze Dysuria Failed back surgical syndrome Fibromyalgia Gastric stress ulcer Gluteal pain Irritable bowel syndrome Left rib fracture Leg weakness Leukocytosis Low back pain Low ferritin Lumbar radiculitis Lumbar radiculopathy, chronic Medication side effects Mental status change resolved Muscle spasm Neck pain Panic attacks Paralysis Paresthesia of right upper limb 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 Pharyngitis Phlebitis Plantar wart Presbycusis Pyogenic granuloma Rash Right cervical radiculopathy Right elbow pain Sleep disturbance Social anxiety disorder Tachycardia Tubular adenoma Underweight Use of opiates for therapeutic purposes Vaginal discharge Vaginitis Viral gastroenteritis Vitamin D deficiency Yeast vaginitis Surgical History Surgical History H/O colectomy H/O endoscopy H/O laparoscopy Hx of colonoscopy S/P cervical discectomy Social History Social History Household Members: Significant Other Household Members Other:: Boyfriend Housing: Condominium Do you presently have visiting nurse or other home services: No Alcohol intake: unknown Patient Tobacco Use Status: Never used Tobacco Smoked in Last 30 Days: No e-Cigarette/Vaping Use: Never Used Patient Interested in Nicotine Replacement: No Patient Given Instructions on How to Stop Smoking: No Second Hand Smoke Exposure: No Substance Use Type: Crack/Cocaine Substance Use Type Other:: Cocaine in the past, none in a long time gummies Substance Use Frequency: Daily Last Used Substance: Days (ago) Last Used Substance Other:: Day before yesterday . Currently Displaying Signs/Symptoms of Drug Intoxication Withdrawal: No Any prior treatment program specific to substance use: No Have you been hit, kicked, punched, or otherwise hurt by someone within the past year? If so, by whom?: No Do you feel safe in your current relationship?: Yes Is there a partner from a previous relationship who is making you feel unsafe now?: No Are you made to feel afraid or neglected: No Spiritual Healthcare Practices: none Jehovah'S Witness Healthcare Practices: none Cultural Healthcare Practices: none Advance Directives: No Advance Directives Information Provided: No (declined) Advance Directives on File: No Do you have thoughts of harming others: None Do you have a plan to hurt others: No Plan Recently lost weight without trying: Yes How much weight loss: Unsure Eating poorly because of decreased appetite: Yes Nutrition screen score: 5 Patient : No : No Poor oral hygiene: No service: No Sexual orientation: Don't Know Meds Allergies Allergy/AdvReac Type Severity Reaction Status Date / Time duloxetine [From CYMBALTA] Allergy Unknown UNKNOWN Verified 11/10/21 08:39 morphine [MORPHINE] Allergy Unknown HALLUCINATI Verified 11/10/21 08:39 ONS Phenylpiperazine AdvReac Severe hallucinati Verified 11/10/21 08:39 Antidepressant ons Tetracyclic Antidepressants AdvReac Severe hallucinati Verified 11/10/21 08:39 ons fentanyl [FENTANYL] AdvReac Unknown UNKNOWN Verified 11/10/21 08:39 ketorolac [From TORADOL] AdvReac Unknown UNKNOWN Verified 11/10/21 08:39 Active Medications: Current Medications Acetaminophen (Acetaminophen 325 Mg Tablet) 650 mg PO Q6H PRN PRN Reason: Headache/Pain Mild Scale (1-3) Last Admin: 01/10/22 13:18 Dose: 650 mg Documented by: Al Hydroxide/Mg Hydroxide (Magnesium Hydrox/Alum Hydrox 30 Ml Oral.Susp) 30 ml PO Q6H PRN PRN Reason: Heartburn/Nausea Carbamazepine (Carbamazepine Er 200 Mg Tab.Er.12h) 400 mg PO DAILY [facility] Last Admin: 01/10/22 08:25 Dose: 400 mg Documented by: Carbamazepine (Carbamazepine Er 200 Mg Tab.Er.12h) 600 mg PO BEDTIME [facility] Last Admin: 01/09/22 20:32 Dose: 600 mg Documented by: Chlorpromazine HCl (Chlorpromazine Hcl 25 Mg Tablet) 50 mg PO BEDTIME PRN PRN Reason: insomnia, if scheduled is not effective Last Admin: 01/09/22 20:35 Dose: 50 mg Documented by: Chlorpromazine HCl (Chlorpromazine Hcl 100 Mg Tablet) 250 mg PO BEDTIME [facility] Last Admin: 01/09/22 20:30 Dose: 250 mg Documented by: Ibuprofen (Ibuprofen 800 Mg Tablet) 800 mg PO Q8H PRN PRN Reason: Pain, Moderate (Pain Scale 4-6 Last Admin: 01/09/22 14:24 Dose: 800 mg Documented by: Magnesium Hydroxide (Milk Of Magnesia 30 Ml Oral.Susp) 30 ml PO DAILY PRN PRN Reason: Constipation Simethicone (Simethicone 80 Mg Tab.Chew) 160 mg PO TIDWM [facility] Last Admin: 01/10/22 13:20 Dose: 160 mg Documented by: Tizanidine HCl (Tizanidine Hcl 4 Mg Tablet) 8 mg PO BID PRN PRN Reason: Muscle Spasm Last Admin: 01/10/22 13:17 Dose: 8 mg Documented by: Home Medications Medication Instructions Recorded Confirmed Last Taken Type betamethasone dipropionate 0.05 % 1 appl TOPICAL BID 12/25/21 Unknown History topical cream clindamycin phosphate 1 % topical 1 appl TOPICAL BID 12/25/21 Unknown History gel clonazepam 1 mg tablet 1 tab PO TID PRN 12/25/21 12/25/21 Unknown History perphenazine 4 mg tablet 1 tab PO BID 12/25/21 Unknown History tizanidine 2 mg tablet 1 cap PO QID PRN 12/25/21 Unknown History tizanidine 4 mg tablet 1 tab PO QID PRN 12/25/21 Unknown History valacyclovir 1 gram tablet 2 tab PO Q12H PRN 12/25/21 Unknown History zolpidem 10 mg tablet 0.5 - 1 tab PO BEDTIME PRN 12/25/21 Unknown History clindamycin phosphate 1 % topical 1 appl TOPICAL BID 12/26/21 12/26/21 12/25/21 08:00 History gel clonazepam 1 mg tablet 1 mg PO BID PRN 12/26/21 12/26/21 12/25/21 08:00 History perphenazine 4 mg tablet 1 tab PO BID 12/26/21 12/26/21 12/25/21 20:00 History tizanidine 4 mg tablet 2 tab PO BID PRN 12/26/21 12/26/21 12/25/21 20:00 History zolpidem 10 mg tablet 0.5 - 1 tab PO BEDTIME PRN 12/26/21 12/26/21 12/25/21 20:00 History Physical Exam Vital Signs: Vital Signs: Last Vital Signs Temp 98.1 F 01/10/22 08:27 Pulse 100 01/10/22 08:27 Resp 16 01/10/22 08:27 BP 108/56 L 01/10/22 08:27 Pulse Ox 97 01/10/22 08:27 BMI result Body Mass Index 19.5 Const: General: cooperative and no acute distress Nutritional Appearance: well nourished Orientation/consciousness: patient oriented x3 Limitations: no limitations HEENT: Head: Yes normocephalic and Yes atraumatic Ears: hearing grossly normal bilaterally Resp: Effort & Inspection: normal respiratory effort, no audible wheezes, no cough and no respiratory distress GI: Inspection: Yes normal to inspection Palpation (GI): Soft to palpation, nontender, no guarding, not rigid and Hernia present umbilical ( Small and easily reducible, no overlying skin changes) Percussion: Yes normal to percussion Auscultation: normal bowel sounds Rectal Exam - Female: deferred Skin: General skin exam: no rashes or lesions noted Neuro: General: patient oriented x3 Extrem: General: Yes normal to inspection and Yes no clubbing, cyanosis or edema Results Labs Result diagrams: 01/05/22 08:29 01/05/22 08:29 Labs: Urine 01/01/22 Range/Units 16:15 Urine Color YELLOW Urine Appearance CLEAR Urine pH 5.5 (5.0-8.0) Ur Specific [place] >= 1.030 H (1.005-1.025) Urine Protein NEG (NEG-TRACE) MG/DL Urine Glucose (UA) NEG (NEG) MG/DL All other labs normal. Assessment and Plan (1) Umbilical hernia: Status: Acute Plan 51-year-old female patient presenting with a recent onset of an umbilical hernia. She initially noted some pain associated with the hernia but now feels this is improved. On examination she does have a small umbilical hernia containing mainly fatty tissue. The hernia is easily reduced with light pressure. There is no evidence of strangulation or incarceration. We discussed the options of repair of this umbilical hernia verses continued observation. As the hernia is very small and now asymptomatic , this can easily be repaired on an elective basis as an outpatient procedure at her convenience. She expressed understanding and agrees with the plan. Procedures Date of Service Date of Service: 01/10/22
[2022-01-10 18:00] VITALS: BP 137/91; PULSE 105; TEMP 36.8; O2SAT 97
[2022-01-10] MEDS: chlorproMAZINE HCl 100 MG TABLET 250 MG PO (20:59)
[2022-01-10] MEDS: carBAMazepine ER 200 MG TAB.ER.12H 600 MG PO (21:00)
[2022-01-11] MEDS: chlorproMAZINE HCl 25 MG TABLET 50 MG PO ×2 (04:10→20:38)
[2022-01-11] MEDS: Acetaminophen 325 MG TABLET 650 MG PO ×2 (04:14→20:38)
[2022-01-11 06:00] VITALS: BP 90/51; PULSE 75; RESP 18; TEMP 36.8; O2SAT 98
[2022-01-11] MEDS: Simethicone 80 MG TAB.CHEW 160 MG PO ×3 (08:56→17:46)
[2022-01-11] MEDS: carBAMazepine ER 200 MG TAB.ER.12H 400 MG PO ×2 (11:36→11:37)
[2022-01-11] MEDS: TiZANidine HCL 4 MG TABLET 8 MG PO ×2 (11:38→20:38)
--- NOTE | 2022-01-11 13:47 | P.PNPSI_ITS ---
Subjective Subjective Date of Service: 01/11/22 Reason For Visit: Psychosis Interim History: voluble, loud, irritable. c/o poor sleep last night, maybe 3 hours. focused on her lack of belief in bipolar Dx and her having been helped by klonopin for sleep. after much venting and discussion, pt agrees to trial of ativan 2 mg at HS tonight. labs tomorrow. discharge tomorrow. not willing to stay through the weekend. per staff, anx/dep 0/10 days. social with select peers. anx 4/10 eves, depression 0/10. denies SI/HI/AVH. c/o poor sleep last night, grumpy this morning. hernia reduced easily, no intervention needed. Mental Status Exam Mental Status Exam Narrative: Pt is alert and oriented; behavior is cooperative, moderately agitated; dressed in casual attire with combed hair and adequate hygiene; mood is described is irritable and affect congruent; eye contact appropriate; Speech is increased in amount, rate, and loudness; nml prosody; no psychomotor agitation/retardation present; thought process is goal directed; Thought content is on treatment; otherwise pertinent to relevant topics; no SI/HI/AVH expressed. Patient's insight and judgment are improving. Diagnostics Vital Signs (24Hr): Vital Signs - 24 hr 01/10/22 18:00 01/11/22 06:00 Temperature 98.3 F 98.2 F Pulse Rate 105 H 75 Respiratory Rate 18 Blood Pressure 137/91 H 90/51 L Pulse Oximetry 97 98 BMI result Body Mass Index 19.5 Labs Results: 01/05/22 08:29 01/05/22 08:29 Medications Medications Current Medications Acetaminophen (Acetaminophen 325 Mg Tablet) 650 mg PO Q6H PRN PRN Reason: Headache/Pain Mild Scale (1-3) Last Admin: 01/11/22 04:14 Dose: 650 mg Documented by: Al Hydroxide/Mg Hydroxide (Magnesium Hydrox/Alum Hydrox 30 Ml Oral.Susp) 30 ml PO Q6H PRN PRN Reason: Heartburn/Nausea Carbamazepine (Carbamazepine Er 200 Mg Tab.Er.12h) 400 mg PO DAILY [facility] Last Admin: 01/11/22 11:37 Dose: 400 mg Documented by: Carbamazepine (Carbamazepine Er 200 Mg Tab.Er.12h) 600 mg PO BEDTIME [facility] Last Admin: 01/10/22 21:00 Dose: 600 mg Documented by: Chlorpromazine HCl (Chlorpromazine Hcl 25 Mg Tablet) 50 mg PO BEDTIME PRN PRN Reason: insomnia, if scheduled is not effective Last Admin: 01/11/22 04:10 Dose: 50 mg Documented by: Chlorpromazine HCl (Chlorpromazine Hcl 100 Mg Tablet) 250 mg PO BEDTIME [facility] Last Admin: 01/10/22 20:59 Dose: 250 mg Documented by: Ibuprofen (Ibuprofen 800 Mg Tablet) 800 mg PO Q8H PRN PRN Reason: Pain, Moderate (Pain Scale 4-6 Last Admin: 01/09/22 14:24 Dose: 800 mg Documented by: Magnesium Hydroxide (Milk Of Magnesia 30 Ml Oral.Susp) 30 ml PO DAILY PRN PRN Reason: Constipation Simethicone (Simethicone 80 Mg Tab.Chew) 160 mg PO TIDWM [facility] Last Admin: 01/11/22 13:20 Dose: 160 mg Documented by: Tizanidine HCl (Tizanidine Hcl 4 Mg Tablet) 8 mg PO BID PRN PRN Reason: Muscle Spasm Last Admin: 01/11/22 11:38 Dose: 8 mg Documented by: Allergies Allergies Allergy/AdvReac Type Severity Reaction Status Date / Time duloxetine [From CYMBALTA] Allergy Unknown UNKNOWN Verified 11/10/21 08:39 morphine [MORPHINE] Allergy Unknown HALLUCINATI Verified 11/10/21 08:39 ONS Phenylpiperazine AdvReac Severe hallucinati Verified 11/10/21 08:39 Antidepressant ons Tetracyclic Antidepressants AdvReac Severe hallucinati Verified 11/10/21 08:39 ons fentanyl [FENTANYL] AdvReac Unknown UNKNOWN Verified 11/10/21 08:39 ketorolac [From TORADOL] AdvReac Unknown UNKNOWN Verified 11/10/21 08:39 Assessment & Plan Assessment & Plan (1) Umbilical hernia: Status: Acute Code(s): K42.9 - Umbilical hernia without obstruction or gangrene Assessment and Plan: 51-year-old female patient presenting with a recent onset of an umbilical hernia. She initially noted some pain associated with the hernia but now feels this is improved. On examination she does have a small umbilical hernia containing mainly fatty tissue. The hernia is easily reduced with light pressure. There is no evidence of strangulation or incarceration. We discussed the options of repair of this umbilical hernia verses continued observation. As the hernia is very small and now asymptomatic , this can easily be repaired on an elective basis as an outpatient procedure at her convenience. She expressed understanding and agrees with the plan. (2) Bipolar disorder: Status: Acute Code(s): F31.9 - Bipolar disorder, unspecified Plan increased perphenazine from 8 mg QHS to 4 mg QAM and 8 mg QHS. started tegretol 200 BID for mood stabilization on 12/28, increased to 400 BID 12/29. do not give ambien.? do not increase klonopin.? do not increase tizanidine. 12/30/2021:? In continue current regimen and plans.? Discontinued the nightly Trilafon and added Thorazine 100 mg which I will re-evaluate tomorrow and possibly increase further. 12/31:? Continue current regimen and plans with increase of Thorazine to 200 mg at night. 01/01 -Continue Thorazine 200 mg as she reports it has been helpful for sleep -Patient reports the visual hallucination of a little black fly that she can see out of the corner of her left eye.? She says this is how visual hallucinations typically start and they are often in the context of a UTI; she says that historically when she gets a UTI she does not have accompanying symptoms. -U/A WNL 01/02: decreased thorazine PRN from 200 mg to 50 mg at HS.? tapered klonopin PRN to 0.5 mg BID instead of 1 mg BID.? DCed morning perphenazine, as pt is now strictly on thorazine for antipsychotic. 01/04: increased HS thorazine to 250 mg, PRN left at 50.? return of some difficulty remaining asleep.? reports improved mood and thoughts. 01/05: got good sleep last night.? feeling much improved.? check b12/folate/TSH/T4. 01/06: Ct Rx plan. Decrease Thorazine to 200 mg 01/07: Ct Rx plan. Monitor insomnia 01/08: slept well last night.? RN report lapse to more manic SX over w/e.? increase HS tegretol to 600 mg (am still 400). 01/09: c/o blurry vision and insomnia.? HS thorazine increased to 250 mg.? surgery consult for umbilical hernia complaint. 01/10: c/o feeling too slowed down. ? klononery DC'ed.? next would decrease thorazine if continues.? discharging saturday.? check labs saturday. 01/11: not wanting to decrease thorazine, slept poorly. agreeable to have ativan 2 mg at HS tonight. still planning to DC tomorrow. 3-day notice matures. hernia easily reducible, no Tx inpatient. I spent ___35___ minutes with the patient and/or on the patient floor today, greater than?50% of which was spent counseling/coordinating care. Patient educated on: diagnosis, medication risk/benefits and substance abuse Reason for contiued inpatient stay Substantial Risk for: inability to function and rapid decompensation
[2022-01-11 18:07] VITALS: BMI 20.2
[2022-01-11] MEDS: chlorproMAZINE HCl 100 MG TABLET 250 MG PO (20:37)
[2022-01-11] MEDS: carBAMazepine ER 200 MG TAB.ER.12H 600 MG PO (20:37)
[2022-01-11] MEDS: LORazepam 1 MG TABLET PO (20:39)
[2022-01-11 20:44] VITALS: BP 121/67; PULSE 98; TEMP 36.7; O2SAT 97
[2022-01-12 08:26] VITALS: BP 109/73; PULSE 114; RESP 17; TEMP 36.4; O2SAT 97
[2022-01-12] MEDS: Simethicone 80 MG TAB.CHEW 160 MG PO (08:35)
[2022-01-12 08:46] LABS: MANUAL DIFF FLAG NO
[2022-01-12] MEDS: Acetaminophen 325 MG TABLET 650 MG PO (08:50)
[2022-01-12] MEDS: carBAMazepine ER 200 MG TAB.ER.12H 400 MG PO (08:50)
[2022-01-12 08:52] LABS: Basophils Percent Auto 0.4 % (0-2); Eosinophils Percent Auto 0.2 % (0-4); Hematocrit 31.4 % (37.0-47.0); Hemoglobin 9.7 g/dl (12.0-16.0); Imm Gran Abs Auto 0.02 X10*3/uL (0.00-0.03); Imm Gran Pct Auto 0.4 % (0.0-0.4); Lymphocytes Absolute Auto 1.2 X10*3/uL (1.2-4.9); Lymphocytes Percent Auto 22.9 % (20-40); Mean Corpuscular HGB Conc 30.9 g/dl (31.0-35.0); Mean Corpuscular Hemoglobin 25.3 pg (27.0-33.0); Mean Platelet Volume 9.2 fL (9.4-12.3); Monocytes Absolute Auto 0.6 X10*3/uL (0.1-1.2); Monocytes Percent Auto 11.4 % (2-11); Neutrophils Absolute Auto 3.5 x10*3/uL (2.0-8.3); Neutrophils Percent Auto 64.7 % (45-73); Platelet Count 403 X10*3/uL (160-400); Red Blood Count 3.83 X10*6/uL (4.20-5.50); White Blood Count 5.4 X10*3/uL (4.8-10.8)
[2022-01-12 09:38] LABS: Alanine Aminotransferase 90 U/L (0-31); Albumin Level 3.8 g/dL (3.5-5.0); Alkaline Phosphatase 208 U/L (39-117); Anion Gap 13 (12-20); Aspartate Amino Transferase 46 U/L (5-31); Bilirubin Direct 0.3 mg/dL (0.0-0.5); Bilirubin Total 0.4 mg/dL (0.0-1.0); Blood Urea Nitrogen 5 mg/dL (9-16); Calcium 9.1 mg/dL (8.4-10.2); Carbon Dioxide 22 mmol/L (22-29); Chloride 105 mmol/L (96-108); Creatinine Clr Calc Pharmacy 85.9; Estimated Glomerular Filt Rate > 60; Glucose Random 100 mg/dL (60-115); Potassium 4.2 mmol/L (3.3-5.1); Sodium 136 mmol/L (135-145); Total Protein 6.3 g/dL (6.5-8.0)
[2022-01-12 10:32] LABS: Carbamazepine Tegretol 8.7 mcg/mL (5.0-12.0)
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
[2022-01-12] MEDS: TiZANidine HCL 4 MG TABLET 8 MG PO (11:12)
--- NOTE | 2022-01-12 11:35 | PC.NURSE ---
Patient is alert and oriented x4. Patient reports feeling ready for discharge and looking forward to going home. Patient is in agreement with discharge teachings and verbalizes an understanding of discharge. Patient denies SI/HI/AH/VH. Patient denies acute physical complaints at this time.
== END 2022-01-12 11:45 | disposition home or self-care (01) | DRG 885 ==
LOC: HO.ED 12-26 01:16 → HO.PADLT16 12-27 16:46
PROVIDERS: Physician Assistant; Psychiatry & Neurology Psychiatry; Admitting Provider Psychiatry & Neurology Psychiatry; Emergency Provider Internal Medicine; PCP Family Medicine; Visit Provider Psychiatry & Neurology Psychiatry
DX: F31.9 Bipolar disorder, unspecified (principal); K42.9 Umbilical hernia without obstruction or gangrene; Z20.822 Contact with and (suspected) exposure to COVID-19; Z88.5 Allergy status to narcotic agent; Z79.899 Other long term (current) drug therapy
CPT/HCPCS: 36415; 80048; 80053; 80076; 80156; 80307; 81001; 82607; 82746; 84439; 84443; 85025; 85027; 87635; 93005; 99285

== ENCOUNTER 2022-02-05 11:45 | Outpatient (RCR) | payer MEDICARE, OTHER, SELFPAY ==
--- NOTE | 2022-01-23 15:05 | PC.NURSE ---
I spoke wih the client about starting PHP with the expectation that she will take her medication as prescribed. The client agrees to take her medication as prescribed. She has an appointment on 01/24 and will begin the PHP on 01/25
--- NOTE | 2022-01-25 10:08 | PC.NURSE ---
When the client did not come to community meeting I called her. She stated that she did not receive a link. We decided that because it was late that we could meet tomorrow for an intake update and she could start on Saturday. She said okay and i informed her that Kourtney would be calling her.
[2022-01-26 15:57] VITALS: BMI 19.3
--- NOTE | 2022-01-26 15:59 | P.HPPSP_ITS ---
[facility] Date of Service: 01/26/22 Chief Complaint: bipolar Sources of Information: patient interviewed, chart reviewed and crisis/core team assessment reviewed HPI Guardianship: No Medical Problems Affecting Mental Status: No Narrative: Patient is a 51-year-old single , [place]-speaking female, referred to [facility] as a step-down from . Had been hospitalized for symptoms of bipolar, with active psychosis. Prior to recent hospitalization she had been experiencing visual hallucinations, paranoid thoughts, disorganized behaviors. Patient has had 3 prior inpatient stays at [facility], in addition to most recent stay, with similar presentations. Patient was cooperative but irritable upon interview, labile, with rapid, loud, pressured speech, perseverative. She reports that her symptoms are related to long COVID, and that her current medications are not working adequately. She has stopped taking the morning dose of Tegretol, which she reports is due to ?my vision being messed up?. She goes on to report that she is having difficulty with proprioception, spatial depth perception is off . Past Psychiatric History: -past meds: seroquel, haldol, wellbutrin, klonopin, ambien, celexa, -pt has had 4 previous inpatient stays at [facility], last 01/05 for paranoid delusions, psychosis, decompensation. Has current psychiatric provider Kylie Talley APRN. Medical Evaluation Reviewed: Yes [facility] Medical History Anal fissure Anemia Anxiety Cervical radiculitis Cervical spinal cord compression Gonsalves hemangioma Chronic diarrhea Chronic narcotic use Chronic night sweats Chronic pain Contact dermatitis Cough Depression Dysconjugate gaze Dysuria Failed back surgical syndrome Fibromyalgia Gastric stress ulcer Gluteal pain Irritable bowel syndrome Left rib fracture Leg weakness Leukocytosis Low back pain Low ferritin Lumbar radiculitis Lumbar radiculopathy, chronic Medication side effects Mental status change resolved Muscle spasm Neck pain Panic attacks Paralysis Paresthesia of right upper limb 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 Pharyngitis Phlebitis Plantar wart Presbycusis Pyogenic granuloma Rash Right cervical radiculopathy Right elbow pain Sleep disturbance Social anxiety disorder Tachycardia Tubular adenoma Underweight Use of opiates for therapeutic purposes Vaginal discharge Vaginitis Viral gastroenteritis Vitamin D deficiency Yeast vaginitis Surgical History H/O colectomy H/O endoscopy H/O laparoscopy Hx of colonoscopy S/P cervical discectomy Family History: unknown Social History: Raised by both parents, along with 4 siblings. has 3 older brothers and 1 younger. Met developmental milestones as expected, graduated high school, bachelor's deg ree. 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 -Pt lives with her boyfriend. son lives with a relative. Substance History: Marijuana: 1st use age 49, 1-2 gummies at bedtime for sleep occasional. Reports stopped a while ago as they were not effective. Cocaine: Has used on 3 occasions after back surgery via nasal, states to help get her moving. Alcohol: Occasional. Trauma History: none divulged Meds/Allergies Allergies Allergies Allergy/AdvReac Type Severity Reaction Status Date / Time duloxetine [From CYMBALTA] Allergy Unknown Hallucinati Verified 01/26/22 12:40 ons morphine [MORPHINE] Allergy Unknown HALLUCINATI Verified 01/26/22 10:19 ONS Phenylpiperazine AdvReac Severe hallucinati Verified 01/26/22 10:19 Antidepressant ons Tetracyclic Antidepressants AdvReac Severe hallucinati Verified 01/26/22 10:19 ons fentanyl [FENTANYL] AdvReac Unknown Hallucinati Verified 01/26/22 12:39 ons ketorolac [From TORADOL] AdvReac Unknown Hallucinati Verified 01/26/22 12:42 ons Mental Status Exam Mental Status Exam Narrative: Well-developed, well-nourished female, in NAD. Appears stated age. Dressed appropriately. Presents as hypomanic, with rapid pressured speech, tangental, labile affect, moderately agitated. Denies any SI/HI/SIB. Patient Appearance: Appropriate Patient Orientation: Person, Place, Time and Situation Level of Consciousness: Awake Patient Behavior: Cooperative and Good Eye Contact Mood Description: Angry ( I want my meds corrected !) Affect Description: Labile (with irritable edge), Angry and Expansive Ability to Follow Directions: Good Speech Pattern: Clear, Perseverating, Coherent, Excessive, Loud and Pressured Memory Description: Intact Hallucinations: None (Denies any type of hallucinations, did not appear to be responding to any type of internal stimuli during interview.) Delusions: Not Present Thought Process: Goal Oriented Thought Content: positive for Goal Oriented (focused on medications) and positive for Perseveration Abnormal Motor Activity Signs and Symptoms: Agitation Judgement: Fair Telehealth Telehealth Location of provider rendering services: practice address Location of patient: address on file Patient Identification confirmed using: Name, : Yes Telehealth method: video Patient verbally consented to treatment: Yes Patient verbally consented to billing insurance company: Yes Patient informed of any privacy concerns related to visit: Yes Minutes spent on Phone/Video with Pt.: 45 Assessment & Plan Assessment & Plan (1) Bipolar disorder: Status: Diagnosis Status: Acute Qualifiers: Current bipolar episode type: hypomanic Code(s): F31.9 - Bipolar disorder, unspecified Assessment and Plan: Patient presents as hypomanic. Irritable, with loud pressured speech. Focused on medications, states all of her medications are for sleep only . Reports that she wants medication changes, including a new mood stabilizer and more Ativan. She reports she is currently taking Tegretol 600 mg at night, Ativan 1 mg at night, muscle relaxer at night, and Thorazine 300 at bedtime. However, med reconciliation completed by RN is inconsistent with this, as it states no Th orazine is being taken. RN states patient has told her she stopped taking thorazine. This will require further clarification. Reports that her primary care physician has recently fired her. Reports that she has reached out to her inpatient provider Dr. Jean, to inform him she has stopped taking her a.m. dose of Tegretol due to side effects. Expressed frustration, states that she has reached out multiple times to her outpatient provider with no response. Reports that ?nobody is monitoring my blood values ?. A chart search revealed labs have been obtained while inpatient. She denies any thought of harm to self or others, no safety concern at this time. Plan Patient appears to be decompensating regarding mood stabilization at this time. She has recently decreased her daily dose of Tegretol, and there was a question as to whether not she is taking Thorazine. 1. Continue with Tegretol 600 mg at bedtime. 2. Add depakote ER 250mg BID, to start tonight. 3. Follow-up on Saturday. Patient educated on: diagnosis, medication risk/benefits and therapeutic strategies Informed Consent: further education needed Reason for continued partial hosp. stay Substantial Risk for: inability to function, rapid decompensation and med/psych decompensation Certification I certify that partial hospital treatment is medically necessary due to the symptoms and problems resulting from the patient's mental illness and the failure to treat the patient at the partial hospital level of care would likely result in the patient requiring inpatient psychiatric care which could not be prevented at a less intensive level of care.
--- NOTE | 2022-01-26 16:51 | PC.ADMIT ---
51 year old female admitted to [facility] as step down from inpatient stay on M3 at [facility]. Patient reports othe inpatient hospitalizations. Prior to hospitalization patient was having psychotic symptoms including visual hallucinations, paranoid thoughts and disorganized behaviors. Dx: Bipolar 1 disorder, depressed with psychotic symptoms. During nursing assessment patient was cooperative but guarded and irritable. Patient answered question abruptly with angry edge. Patient was unable to have any meaningful discussions. Patient insight poor. 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 Patient reports chronic back pain. Patient is preoccupied with the injustice of the medical system and doctors who will not acknowledge her [facility] Covid symptems or who will adequately treat her back pain. Patient denies SI and HI. Reviewed and reconciled medication list with patient. Patient has stopped taking her AM dose of Tegretol, continues with 600mg at bedtime. [employer] met with patient today for medication review. Per [employer] patient will start on Depakote 250md 2x day, starting today with continuation of Tegretol. Plan poer [employer] is to titrate up Depakote. Patient has scheduled appointment with [employer] on 01/29/22 to evaluate medication changes made today.
--- NOTE | 2022-01-29 13:28 | HO.PHPPROGNO ---
Subjective Subjective Date of Service: 01/29/22 Reason For Visit: bipolar Guardianship: No Medical Problems Affecting Mental Status: No Interim History: Stopped taking tegretol on own this past Saturday, was bothering my vision . Did not start depakote yet. Will start today. No SI, no safety concern. Medication Compliance: Intermittent Side effects from medications: No Attending Groups: Yes Review of Systems Medical Review of Systems: unchanged Review of Systems Review of Systems Yes all other systems are reviewed and are negative Constitutional: Reports no additional constitutional complaints Mental Status Exam Mental Status Exam Narrative: NAD. Alert, attentive, and cooperative during encounter. Less labile. Patient Appearance: Appropriate Patient Orientation: Person, Place, Time and Situation Level of Consciousness: Awake Patient Behavior: Cooperative and Good Eye Contact Mood Description: Appropriate Affect Description: Anxious Patient Cognition Impaired: No Ability to Follow Directions: Good Speech Pattern: Clear, Perseverating, Coherent, Rapid and Pressured (slightly) Memory Description: Intact Hallucinations: None Delusions: Not Present Thought Process: Intact and Goal Oriented Thought Content: positive for Intact Judgement: Fair Diagnostics Vital Signs (24Hr): BMI result Body Mass Index 19.3 Assessment & Plan Assessment & Plan (1) Bipolar disorder: Qualifiers: Current bipolar episode type: hypomanic Status: Acute Code(s): F31.9 - Bipolar disorder, unspecified Assessment and Plan: Patient continues with rapid, somewhat pressured speech. Stopped taking Tegretol on her own. Did not yet start Depakote. We discussed this today, she will start taking it today. No SI/HI/SIB, no safety concern. Discussed labs that have been ordered. She will await several days, as 1 of the orders is for a valproic acid level. (2) DAYANNA (generalized anxiety disorder): Status: Acute Code(s): F41.1 - Generalized anxiety disorder Plan 1. Continue with current [facility] plan of care. 2. Will begin Depakote ER 250 b.i.d. today. 3. Will obtain labs in several days. 4. Follow-up as per protocol. Patient educated on: diagnosis, medication risk/benefits and therapeutic strategies Informed Consent: understands Reason for contiued partial hosp. stay Substantial Risk for: harm to self, inability to function, rapid decompensation and med/psych decompensation Certification I certify that partial hospital treatment is medically necessary due to the symptoms and problems resulting from the patient's mental illness and the failure to treat the patient at the partial hospital level of care would likely result in the patient requiring inpatient psychiatric care which could not be prevented at a less intensive level of care. I spent minutes with the patient and/or on the patient floor today, greater than?50% of which was spent counseling/coordinating care. Discharge Plan Discharge Attending provider: Marco Antonio Sepulveda Medications: New divalproex [Depakote ER] 250 mg tablet extended release 24 hr 250 mg PO BID 4 Days Qty: 8 0RF No Action tizanidine 4 mg tablet 1 tab PO QID PRN (Reason: muscle spasm) 0RF betamethasone dipropionate 0.05 % cream 1 appl TOPICAL BID 0RF clindamycin phosphate 1 % gel 1 appl topical BID 0RF carbamazepine 200 mg Tablet Extended Release 12 Hr 600 mg PO BEDTIME 30 Days Qty: 90 0RF lorazepam 1 mg Tablet 1 mg PO BEDTIME 30 Days Qty: 30 0RF Stand Alone Forms: Patient Portal Discharge page Telehealth Telehealth Location of provider rendering services: practice address Location of patient: address on file Patient Identification confirmed using: Name, : Yes Telehealth method: video Patient verbally consented to treatment: Yes Patient verbally consented to billing insurance company: Yes Patient informed of any privacy concerns related to visit: Yes Minutes spent on Phone/Video with Pt.: 15
--- NOTE | 2022-01-30 11:54 | PC.NURSE ---
I spoke with the client about the group rule of being on time for 9 am and if she cant make it on time to call . We discussed how the groups are for her she states that she can relate to what others are saying. I reviewed her treatment plan which includes learning skills and following through with the referral that was made by staff for a therapist. She states that she has been playing phone tag with the therapist. I told her if she doesnt make contact with them I will also call the therapist
--- NOTE | 2022-02-02 16:17 | PC.NURSE ---
Per patient request call placed to patient's therapist, Lloyd Tinoco re: patients initial visit with therapist. Patient reports she has been leaving multiple messages. Therapist will see patient 02/05/2022 at 4pm. Call to patient with information. Explained to parient that some insurances do not pay for two visits in one day. Patient wants to attend PHP on Saturday as she needs scripts and has medication appointment with Mela Alexandra NP Patient states she will call therapist and reschedule.
--- NOTE | 2022-02-05 10:02 | HO.PHPPROGNO ---
Subjective Subjective Date of Service: 02/05/22 Reason For Visit: bipolar Guardianship: No Medical Problems Affecting Mental Status: No Interim History: Met with patient to review results from lab tests that were conducted on 02/02/2022. Elevated LFTs, Depakote level, as well as positive tox screen for cannabis, cocaine, PCP. Medication Compliance: Intermittent Side effects from medications: No Attending Groups: Yes Review of Systems Acute medical concerns: No Medical Review of Systems: unchanged Review of Systems Review of Systems Yes all other systems are reviewed and are negative Constitutional: Reports no additional constitutional complaints Mental Status Exam Mental Status Exam Narrative: Well-developed, well-nourished female, in NAD. Did not appear to be under the influence of any substances. Did not appear to be responding to any type of internal stimuli. Did not reports any thoughts of harm to self or others, no safety concern. Patient Appearance: Appropriate Patient Orientation: Person, Place, Time and Situation Level of Consciousness: Appropriate Patient Behavior: Appropriate and Good Eye Contact Mood Description: Appropriate Affect Description: Appropriate Patient Cognition Impaired: No Ability to Follow Directions: Good Speech Pattern: Clear Memory Description: Intact Hallucinations: None Delusions: Not Present Thought Process: Intact Thought Content: positive for Intact Depressive Symptoms: Increased Anxiety Judgement: Fair Diagnostics Vital Signs (24Hr): BMI result Body Mass Index 19.3 Assessment & Plan Assessment & Plan (1) Cocaine use disorder: Status: Acute Code(s): F14.10 - Cocaine abuse, uncomplicated Assessment and Plan: Reviewed recent drug screen that was conducted on 02/02/2022. Patient reports she never uses PCP, however was discussed at her screen was positive. Was also positive for cocaine and cannabis. She was advised at this time that she will be sent for a new HURLEY today. It was also discussed that she may be discharged, and referred to a substance use program. She was informed that she would be welcome back once she completes a substance use focused program. (2) Bipolar disorder: Qualifiers: Current bipolar episode type: hypomanic Status: Acute Code(s): F31.9 - Bipolar disorder, unspecified Assessment and Plan: Discussed possibility that elevated liver enzymes may be related to Depakote. She reports that they were elevated while she was inpatient, and it was due to Tegretol. She believes they will trend down now that she is off of Tegretol. She was advised that she may not be appropriate for Depakote going forward, if LFT's continue elevated. Plan Patient met with myself and program RN to discuss elevated LFTs as well as positive HURLEY. Patient to be discharged from program, will be given resources for substance focused programs. She stated that she understood. At no time during conversation did she indicate any impairment, current use of any substances this morning, or any thoughts of harm to self or others. Patient educated on: diagnosis, medication risk/benefits and substance abuse Informed Consent: understands Reason for contiued partial hosp. stay Substantial Risk for: stable for discharge (Patient to be referred to substance focused program, possibly detox.) Certification I certify that partial hospital treatment is medically necessary due to the symptoms and problems resulting from the patient's mental illness and the failure to treat the patient at the partial hospital level of care would likely result in the patient requiring inpatient psychiatric care which could not be prevented at a less intensive level of care. I spent minutes with the patient and/or on the patient floor today, greater than?50% of which was spent counseling/coordinating care. Discharge Plan Discharge Attending provider: Marco Antonio Sepulveda Medications: New divalproex [Depakote ER] 250 mg tablet extended release 24 hr 250 mg PO BID 4 Days Qty: 8 0RF Discontinued carbamazepine 200 mg Tablet Extended Release 12 Hr 600 mg PO BEDTIME 30 Days Qty: 90 0RF No Action lorazepam 2 mg Tablet 2 mg PO BEDTIME 0RF tizanidine 4 mg tablet 1 tab PO QID PRN (Reason: muscle spasm) 0RF betamethasone dipropionate 0.05 % cream 1 appl TOPICAL BID 0RF clindamycin phosphate 1 % gel 1 appl topical BID 0RF Stand Alone Forms: Patient Portal Discharge page Telehealth Telehealth Location of provider rendering services: practice address Location of patient: address on file Patient Identification confirmed using: Name, : Yes Telehealth method: video Patient verbally consented to treatment: Yes Patient verbally consented to billing insurance company: Yes Patient informed of any privacy concerns related to visit: Yes Minutes spent on Phone/Video with Pt.: 10
--- NOTE | 2022-02-05 10:19 | PC.NURSE ---
I called and left a message for the client to return my call
--- NOTE | 2022-02-05 14:15 | PC.NURSE ---
when the client did not return my phone call I called her and left a message regarding discharge from [facility] . I suggested she call for an intake fat either [facility] substance IOP or [facility] program and left her the numbers for both programs.
== END 2022-02-05 23:59 | disposition home or self-care (01) ==
LOC: HO.PHPA 11:45
PROVIDERS: Visit Provider Psychiatry & Neurology Psychiatry
DX: F31.0 Bipolar disorder, current episode hypomanic (principal); F41.1 Generalized anxiety disorder; F14.10 Cocaine abuse, uncomplicated; Z79.899 Other long term (current) drug therapy
CPT/HCPCS: 90853

== ENCOUNTER → 2022-02-22 11:33 | Outpatient (BNVA) | payer MEDICARE, OTHER, SELFPAY | PROVIDERS: PCP Family Medicine; Visit Provider Internal Medicine | DX: M54.16 Radiculopathy, lumbar region (principal); M96.1 Postlaminectomy syndrome, not elsewhere classified; F31.0 Bipolar disorder, current episode hypomanic | CPT/HCPCS: 99212 ==

== ENCOUNTER 2022-03-28 05:53 | Outpatient (REF) | payer MEDICARE, OTHER, SELFPAY ==
--- NOTE | ~2022-03-28 | FL_ITS ---
EXAMINATION: XR FLUOROSCOPY WITH IMAGES CLINICAL INFORMATION: M96.1 - Postlaminectomy syndrome, not elsewhere classified COMPARISON: MR lumbar spine 12/22/2020 TECHNIQUE: Fluoroscopy performed by Dr. Yossi Avitia. Fluoroscopy time: 0.2 minutes. Cumulative Dose: 1.93 mGy. DAP: 0.270 Gycm2. Images: 3. FINDINGS: There there is a spinal needle with tip at outer aspect left L4 neural foramen. There is contrast seen in the nerve sheath along with transforaminal epidural extension. No visible vascular communication. FL/FL guidance in treatment room IMPRESSION: Fluoroscopy for pain management procedure.
== END 2022-03-28 05:54 | disposition home or self-care (01) ==
LOC: HO.RADIR 05:53
PROVIDERS: Visit Provider Internal Medicine
DX: M54.16 Radiculopathy, lumbar region (principal); M96.1 Postlaminectomy syndrome, not elsewhere classified
CPT/HCPCS: 64483; J1100

== ENCOUNTER → 2022-05-18 10:49 | Outpatient (BNVA) | payer MEDICARE, OTHER, SELFPAY | PROVIDERS: PCP Family Medicine; Visit Provider Internal Medicine | DX: M96.1 Postlaminectomy syndrome, not elsewhere classified (principal); M54.16 Radiculopathy, lumbar region | CPT/HCPCS: 99212 ==

== ENCOUNTER 2022-05-27 19:42 | Emergency (ER) | payer MEDICARE, OTHER, SELFPAY ==
--- NOTE | ~2022-05-27 | CT_ITS ---
EXAMINATION: CT HEAD WITHOUT CONTRAST CLINICAL INFORMATION: Acute mental status change COMPARISON: 08/08/2019 TECHNIQUE: Contiguous axial imaging was performed from the skull base to vertex without intravenous administration of contrast. This CT examination was performed using dose optimization techniques as appropriate, variously including the following: *Automated exposure control *Adjustment of mA and/or kV according to patient size (this includes techniques or standardized protocols for targeted exams where dose is matched to indication/reason for exam; i.e. extremities or head) *Use of iterative reconstruction technique DLP: 613 mGy-cm FINDINGS: No acute findings. No hemorrhage. No mass. No extra-axial cysts collection. Brainstem and cerebellum normal. No calvarial sinus abnormality. CT/CT head/brain wo IV con IMPRESSION: No acute intracranial pathology.
[2022-05-27 19:52] VITALS: BP 105/69; BP 118/84; PULSE 80; PULSE 90; RESP 16; TEMP 36.7; O2SAT 98; BMI 21.4
[2022-05-27 20:04] VITALS: BP 105/69; PULSE 80; RESP 16; TEMP 36.7; O2SAT 98
--- NOTE | 2022-05-27 20:28 | ECG_ITS ---
Test Reason : AMS Blood Pressure : / mmHG Vent. Rate : 072 BPM Atrial Rate : 072 BPM P-R Int : 152 ms QRS Dur : 068 ms QT Int : 422 ms P-R-T Axes : 050 032 034 degrees QTc Int : 462 ms Normal sinus rhythm Normal ECG When compared with ECG of 27-DEC-2021 12:30, No significant change was found Referred By: Narendra Colin Electronically Signed By:MELYSSA MARCIAL
--- NOTE | 2022-05-27 20:31 | ED.AMS ---
HPI - Altered Mental Status General Chief Complaint: Neuro Symptoms/Deficit Stated Complaint: AMS Time Seen by Provider: 05/27/22 20:21 Source: patient Mode of arrival: ambulatory Limitations: no limitations History of Present Illness HPI narrative: Patient came for an increased confusion since morning she takes tizanidine for chronic back pain which she is taking her usual dose no extra medication was taken patient feel all day confuse fogginess , with heavy speech no focal deficit no fever no chills no head injury no headache no palpitation or chest Related Data Home Medications Medication Instructions Recorded Confirmed betamethasone dipropionate 0.05 % 1 appl topical BID 12/25/21 05/18/22 topical cream tizanidine 4 mg tablet 1 tab PO QID PRN muscle spasm 12/25/21 05/18/22 clindamycin phosphate 1 % topical 1 appl topical BID 12/26/21 05/18/22 gel lorazepam 2 mg tablet 2 mg PO BEDTIME 02/01/22 05/18/22 chlorpromazine 100 mg tablet mg PO 02/22/22 05/18/22 Previous Rx's Medication Instructions Recorded cefuroxime axetil 500 mg tablet 500 mg PO BID 7 days #14 tabs 05/28/22 Allergies Allergy/AdvReac Type Severity Reaction Status Date / Time duloxetine [From CYMBALTA] Allergy Unknown Hallucinati Verified 05/18/22 10:59 ons morphine [MORPHINE] Allergy Unknown HALLUCINATI Verified 05/18/22 10:59 ONS Phenylpiperazine AdvReac Severe hallucinati Verified 05/18/22 10:59 Antidepressant ons Tetracyclic Antidepressants AdvReac Severe hallucinati Verified 05/18/22 10:59 ons fentanyl [FENTANYL] AdvReac Unknown Hallucinati Verified 05/18/22 10:59 ons ketorolac [From TORADOL] AdvReac Unknown Hallucinati Verified 05/18/22 10:59 ons Review of Systems Review of Systems: Yes all other systems are reviewed and are negative PMFSH Past Medical History Medical History Anal fissure Anemia Anxiety Cervical radiculitis Cervical spinal cord compression Gonsalves hemangioma Chronic diarrhea Chronic narcotic use Chronic night sweats Chronic pain Contact dermatitis Cough Depression Dysconjugate gaze Dysuria Failed back surgical syndrome Fibromyalgia Gastric stress ulcer Gluteal pain Irritable bowel syndrome Left rib fracture Leg weakness Leukocytosis Low back pain Low ferritin Lumbar radiculitis Lumbar radiculopathy, chronic Medication side effects Mental status change resolved Muscle spasm Neck pain Panic attacks Paralysis Paresthesia of right upper limb 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 Pharyngitis Phlebitis Plantar wart Presbycusis Pyogenic granuloma Rash Right cervical radiculopathy Right elbow pain Sleep disturbance Social anxiety disorder Tachycardia Tubular adenoma Underweight Use of opiates for therapeutic purposes Vaginal discharge Vaginitis Viral gastroenteritis Vitamin D deficiency Yeast vaginitis Surgical History H/O colectomy H/O endoscopy H/O laparoscopy Hx of colonoscopy S/P cervical discectomy Social History Social History Household Members: Significant Other and Children Household Members Other:: Boyfriend Housing: Condominium Do you presently have visiting nurse or other home services: No Alcohol intake: current Alcohol intake frequency: holidays/special occasions only Patient Tobacco Use Status: Never used Tobacco e-Cigarette/Vaping Use: Never Used Second Hand Smoke Exposure: No Use of substances other than those prescribed or required for medical reasons: Yes Substance Use Type: Marijuana Substance Use Frequency: Daily Advance Directives: No Advance Directives Information Provided: No Patient : No service: No Sexual orientation: Don't Know Physical Exam ED Vital Signs: Vital Signs - 24 hr 05/27/22 19:52 05/27/22 20:04 Temperature 98.0 F 98.0 F Pulse Rate 80 80 Respiratory Rate 16 16 Blood Pressure 105/69 105/69 Pulse Oximetry 98 98 Oxygen Delivery Method Room Air Room Air BMI result Body Mass Index 21.4 Appearance: Alert. Oriented X3. No acute distress. Falling sleep frequent Eyes: PERRLA, No Nystagmus ENT: Pharynx normal. Oral Mucosa moist Neck: Normal inspection. Neck supple. CVS: Normal heart rate and rhythm. Pulses normal. Respiratory: No respiratory distress. Equal air entry bilateral, no wheezing/rales/rhonchi Abdomen: Soft and nontender. Bowel sounds are present, no mass palpable, no CVA tenderness Skin: Skin warm and dry. Normal skin color. Normal skin turgor. Extremities: No lower extremity edema. No calf tenderness Neuro: Oriented X 3. No motor deficit. No sensory deficit.No cerebellar signs , cranial nerves II-XII intact MDM - Altered Mental Status MDM Narrative Medical decision making narrative: Patient with fogginess weakness workup showed UTI clinically not septic also tizanidine me with the role playing for increased weakness advised not to take 2 tablets at 1 time. Patient will be given 1 g Rocephin discharged on Ceftin Lab Data Attestation: I reviewed the patient's lab results. Result diagrams: 05/27/22 23:33 05/27/22 23:32 Labs: Lab Results 05/27/22 05/27/22 05/27/22 Range/Units 20:53 23:32 23:32 WBC (4.8-10.8) X10*3/uL RBC (4.20-5.50) X10*6/uL Hgb (12.0-16.0) g/dl Hct (37.0-47.0) % MCV (80.0-98.0) fL MCH (27.0-33.0) pg MCHC (31.0-35.0) g/dl RDW (11.0-16.0) % Plt Count (160-400) X10*3/uL MPV (9.4-12.3) fL Immature Gran % (Auto) (0.0-0.4) % Neut % (Auto) (45-73) % Lymph % (Auto) (20-40) % [place] % (Auto) (2-11) % Eos % (Auto) (0-4) % Baso % (Auto) (0-2) % Lymph # (Auto) (1.2-4.9) X10*3/uL [place] # (Auto) (0.1-1.2) X10*3/uL Eos # (Auto) (0.0-0.4) X10*3/uL Baso # (Auto) (0.0-0.2) X10*3/uL Abs Immat Gran (auto) (0.00-0.03) X10*3/uL Absolute Neuts (auto) (2.0-8.3) x10*3/uL Absolute Nucleated RBC (0.0-0.012) X10*3/uL Nucleated RBC % (auto) (0.0-0.2) /100WBC Sodium 143 (135-145) mmol/L Potassium 3.8 (3.3-5.1) mmol/L Chloride 109 H (96-108) mmol/L Carbon Dioxide 22 (22-29) mmol/L Anion Gap 16 (12-20) BUN 9 D (9-16) mg/dL Creatinine 0.77 (0.5-1.4) mg/dL Estim Creat Clear Calc 80.0 Estimated GFR > 60 Random Glucose 96 (60-115) mg/dL Calcium 8.5 D (8.4-10.2) mg/dL Magnesium 1.8 (1.6-2.6) mg/dL Total Bilirubin 0.2 (0.0-1.0) mg/dL AST 18 D (5-31) U/L ALT 16 (0-31) U/L Alkaline Phosphatase 84 D (39-117) U/L Ammonia 31 (13-55) umol/L Total Protein 6.0 L (6.5-8.0) g/dL Albumin 3.9 (3.5-5.0) g/dL Urine Color Urine Appearance Urine pH (5.0-9.0) Ur Specific [place] (1.005-1.025) Urine Protein (Neg-Trace) mg/dL Urine Glucose (UA) (Negative) mg/dL Urine Ketones (Negative) mg/dL Urine Blood (Negative) Urine Nitrite (Negative) Ur Leukocyte Esterase (Negative) Urine RBC (0-2) /HPF Urine WBC (0-5) /HPF Ur Squamous Epith Cells (0-2) /HPF Urine Bacteria (None Seen) Hyaline Casts (0-2) /LPF Urine Yeast Urine Opiates Screen (Not Detect) Urine Fentanyl Screen (Not Detect) Ur Barbiturates Screen (Not Detect) Ur Phencyclidine Scrn (Not Detect) Ur Amphetamines Screen (Not Detect) U Benzodiazepines Scrn (Not Detect) Urine Cocaine Screen (Not Detect) U Marijuana (THC) Screen (Not Detect) COVID-19 (SALLY) Negative (Negative) COVID-19 Clin Com See Note 05/27/22 05/28/22 05/28/22 Range/Units 23:33 00:43 00:43 WBC 6.0 (4.8-10.8) X10*3/uL RBC 4.11 L (4.20-5.50) X10*6/uL Hgb 10.8 L (12.0-16.0) g/dl Hct 33.3 L (37.0-47.0) % MCV 81.0 (80.0-98.0) fL MCH 26.3 L (27.0-33.0) pg MCHC 32.4 (31.0-35.0) g/dl RDW 18.0 H (11.0-16.0) % Plt Count 376 (160-400) X10*3/uL MPV 8.8 L (9.4-12.3) fL Immature Gran % (Auto) 0.2 (0.0-0.4) % Neut % (Auto) 63.0 (45-73) % Lymph % (Auto) 27.1 (20-40) % [place] % (Auto) 9.0 (2-11) % Eos % (Auto) 0.0 (0-4) % Baso % (Auto) 0.7 (0-2) % Lymph # (Auto) 1.6 (1.2-4.9) X10*3/uL [place] # (Auto) 0.5 (0.1-1.2) X10*3/uL Eos # (Auto) 0.0 (0.0-0.4) X10*3/uL Baso # (Auto) 0.0 (0.0-0.2) X10*3/uL Abs Immat Gran (auto) 0.01 (0.00-0.03) X10*3/uL Absolute Neuts (auto) 3.8 (2.0-8.3) x10*3/uL Absolute Nucleated RBC 0.000 (0.0-0.012) X10*3/uL Nucleated RBC % (auto) 0.0 (0.0-0.2) /100WBC Sodium (135-145) mmol/L Potassium (3.3-5.1) mmol/L Chloride (96-108) mmol/L Carbon Dioxide (22-29) mmol/L Anion Gap (12-20) BUN (9-16) mg/dL Creatinine (0.5-1.4) mg/dL Estim Creat Clear Calc Estimated GFR Random Glucose (60-115) mg/dL Calcium (8.4-10.2) mg/dL Magnesium (1.6-2.6) mg/dL Total Bilirubin (0.0-1.0) mg/dL AST (5-31) U/L ALT (0-31) U/L Alkaline Phosphatase (39-117) U/L Ammonia (13-55) umol/L Total Protein (6.5-8.0) g/dL Albumin (3.5-5.0) g/dL Urine Color Yellow Urine Appearance Cloudy Urine pH 7.5 (5.0-9.0) Ur Specific [place] <= 1.005 (1.005-1.025) Urine Protein Negative (Neg-Trace) mg/dL Urine Glucose (UA) Negative (Negative) mg/dL Urine Ketones Negative (Negative) mg/dL Urine Blood Trace H (Negative) Urine Nitrite Negative (Negative) Ur Leukocyte Esterase Large (3+) H (Negative) Urine RBC 0-2 (0-2) /HPF Urine WBC >50 H (0-5) /HPF Ur Squamous Epith Cells 6-10 (0-2) /HPF Urine Bacteria 1+ (None Seen) Hyaline Casts 0-2 (0-2) /LPF Urine Yeast Present Urine Opiates Screen Not Detected (Not Detect) Urine Fentanyl Screen Not Detected (Not Detect) Ur Barbiturates Screen Not Detected (Not Detect) Ur Phencyclidine Scrn Not Detected (Not Detect) Ur Amphetamines Screen Not Detected (Not Detect) U Benzodiazepines Scrn Not Detected (Not Detect) Urine Cocaine Screen Not Detected (Not Detect) U Marijuana (THC) Screen POSITIVE H (Not Detect) COVID-19 (SALLY) (Negative) COVID-19 Clin Com ECG Data ECG #1: Attestation: I personally reviewed and interpreted this ECG as follows: Interpretation: Normal sinus rhythm heart rate 72 beats per minute normal interval normal axis no acute ischemic EKG changes Discharge Plan Discharge Clinical Impression: UTI (urinary tract infection) Patient Disposition: Home, Self-Care Instructions: Urinary Tract Infection in Women (ED) Additional Instructions: Drink plenty of fluids Antibiotics as prescribed Follow-up with PCP if not better Prescriptions: New cefuroxime axetil 500 mg tablet 500 mg PO BID 7 Days Qty: 14 0RF No Action lorazepam 2 mg Tablet 2 mg PO BEDTIME tizanidine 4 mg tablet 1 tab PO QID PRN (Reason: muscle spasm) betamethasone dipropionate 0.05 % cream 1 appl TOPICAL BID clindamycin phosphate 1 % gel 1 appl topical BID chlorpromazine 100 mg tablet PO
[2022-05-27] MEDS: 0.9 % Sodium Chloride 1,000 ML 999 ML IV (21:13)
[2022-05-27 21:22] LABS: COVID-19 Test Negative (Negative); IDNOW Serial# 55D5AD1C
[2022-05-27 23:38] LABS: Basophils Percent Auto 0.7 % (0-2); Hematocrit 33.3 % (37.0-47.0); Hemoglobin 10.8 g/dl (12.0-16.0); Imm Gran Abs Auto 0.01 X10*3/uL (0.00-0.03); Imm Gran Pct Auto 0.2 % (0.0-0.4); Lymphocytes Absolute Auto 1.6 X10*3/uL (1.2-4.9); Lymphocytes Percent Auto 27.1 % (20-40); MANUAL DIFF FLAG NO; Mean Corpuscular HGB Conc 32.4 g/dl (31.0-35.0); Mean Corpuscular Hemoglobin 26.3 pg (27.0-33.0); Mean Platelet Volume 8.8 fL (9.4-12.3); Monocytes Absolute Auto 0.5 X10*3/uL (0.1-1.2); Neutrophils Absolute Auto 3.8 x10*3/uL (2.0-8.3); Platelet Count 376 X10*3/uL (160-400); Red Blood Count 4.11 X10*6/uL (4.20-5.50)
[2022-05-27 23:54] LABS: Alanine Aminotransferase 16 U/L (0-31); Albumin Level 3.9 g/dL (3.5-5.0); Alkaline Phosphatase 84 U/L (39-117); Anion Gap 16 (12-20); Aspartate Amino Transferase 18 U/L (5-31); Bilirubin Total 0.2 mg/dL (0.0-1.0); Blood Urea Nitrogen 9 mg/dL (9-16); Calcium 8.5 mg/dL (8.4-10.2); Carbon Dioxide 22 mmol/L (22-29); Chloride 109 mmol/L (96-108); Estimated Glomerular Filt Rate > 60; Glucose Random 96 mg/dL (60-115); Magnesium 1.8 mg/dL (1.6-2.6); Potassium 3.8 mmol/L (3.3-5.1); Sodium 143 mmol/L (135-145)
[2022-05-28 00:31] LABS: Ammonia 31 umol/L (13-55)
[2022-05-28 00:51] LABS: Appearance Urine Cloudy; Color Urine Yellow; Glucose Urine UA Negative (Negative); Leukocyte Esterase Urine Large (3+) (Negative); Nitrite Urine Negative (Negative); PH 7.5 (5.0-9.0); Specific Gravity - Urine <= 1.005 (1.005-1.025); Urine Blood Trace (Negative); Urine Ketones Negative (Negative); Urine Protein Negative (Neg-Trace)
[2022-05-28 01:01] LABS: Bacteria Urine 1+ (None Seen); Hyaline Casts Urine 0-2 /LPF (0-2); RBC Urine 0-2 /HPF (0-2); UACC Culture Trigger YES; WBC Urine >50 /HPF (0-5)
[2022-05-28 01:02] LABS: Amphetamine Screen Urine Not Detected (Not Detect); Barbiturates, Urine Not Detected (Not Detect); Benzodiazepines Screen Urine Not Detected (Not Detect); Cannabinoid Screen Urine POSITIVE (Not Detect); Cocaine Screen Urine Not Detected (Not Detect); Fentanyl, urine Not Detected (Not Detect); Opiate Screen Urine Not Detected (Not Detect); Phencyclidine Screen Urine Not Detected (Not Detect)
[2022-05-28] MEDS: cefTRIAXone sodium 1 GM in 0.9 % Sodium Chloride 50 ML IV (02:25)
[2022-05-28] MEDS: Fluconazole 100 MG TABLET PO (03:19)
[2022-05-28 03:22] VITALS: BP 122/69; PULSE 73; RESP 16
== END 2022-05-28 03:27 | disposition home or self-care (01) ==
PROVIDERS: Emergency Provider Internal Medicine
DX: N39.0 Urinary tract infection, site not specified (principal); M54.50 Low back pain, unspecified; R41.82 Altered mental status, unspecified; R51.9 Headache, unspecified; Z20.822 Contact with and (suspected) exposure to COVID-19; Z79.899 Other long term (current) drug therapy
CPT/HCPCS: 36415; 70450; 80053; 80307; 81001; 82140; 83735; 85025; 87086; 87635; 93005; 96365; 99285; J0696

== ENCOUNTER 2022-07-13 15:58 | Inpatient (IN) | payer MEDICARE, OTHER, SELFPAY ==
[2022-07-13 16:07] VITALS: BP 113/78; BP 141/92; PULSE 84; PULSE 89; RESP 16; TEMP 37.4; O2SAT 100; BMI 21.4
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
--- NOTE | 2022-07-13 22:07 | ECG_ITS ---
Test Reason : JAW PAIN Blood Pressure : / mmHG Vent. Rate : 073 BPM Atrial Rate : 073 BPM P-R Int : 168 ms QRS Dur : 072 ms QT Int : 390 ms P-R-T Axes : 072 020 051 degrees QTc Int : 429 ms Normal sinus rhythm Possible Left atrial enlargement Low voltage QRS RSR' or QR pattern in V1 suggests right ventricular conduction delay Nonspecific ST abnormality Abnormal ECG When compared with ECG of 27-MAY-2022 20:30, No significant change was found Referred By: Narendra Colin Electronically Signed By:GEORGES GALINDO MD
[2022-07-13 22:48] LABS: MANUAL DIFF FLAG NO
[2022-07-13 22:53] LABS: Basophils Absolute Auto 0.1 X10*3/uL (0.0-0.2); Basophils Percent Auto 0.6 % (0-2); Eosinophils Absolute Auto 0.1 X10*3/uL (0.0-0.4); Eosinophils Percent Auto 0.6 % (0-4); Hematocrit 39.7 % (37.0-47.0); Hemoglobin 12.9 g/dl (12.0-16.0); Imm Gran Abs Auto 0.01 X10*3/uL (0.00-0.03); Imm Gran Pct Auto 0.1 % (0.0-0.4); Lymphocytes Absolute Auto 2.1 X10*3/uL (1.2-4.9); Lymphocytes Percent Auto 25.4 % (20-40); Mean Corpuscular HGB Conc 32.5 g/dl (31.0-35.0); Mean Corpuscular Hemoglobin 27.7 pg (27.0-33.0); Mean Corpuscular Volume 85.4 fL (80.0-98.0); Mean Platelet Volume 8.9 fL (9.4-12.3); Monocytes Absolute Auto 0.6 X10*3/uL (0.1-1.2); Monocytes Percent Auto 7.2 % (2-11); Neutrophils Absolute Auto 5.4 x10*3/uL (2.0-8.3); Neutrophils Percent Auto 66.1 % (45-73); Platelet Count 445 X10*3/uL (160-400); Red Blood Count 4.65 X10*6/uL (4.20-5.50); Red Cell Distribution Width 15.9 % (11.0-16.0); White Blood Count 8.1 X10*3/uL (4.8-10.8)
[2022-07-13 22:56] LABS: Appearance Urine Cloudy; Color Urine Yellow; Glucose Urine UA Negative (Negative); Leukocyte Esterase Urine Trace (Negative); Nitrite Urine Negative (Negative); UMIC TRIGGER UACC YES; Urine Blood Negative (Negative); Urine Ketones Negative (Negative); Urine Protein Negative (Neg-Trace)
[2022-07-13 22:59] LABS: Bacteria Urine 1+ (None Seen); Hyaline Casts Urine 0-2 /LPF (0-2); RBC Urine 0-2 /HPF (0-2); UACC Culture Trigger YES
[2022-07-13] MEDS: Acetaminophen 325 MG TABLET 650 MG PO (23:03)
[2022-07-13 23:07] LABS: Alanine Aminotransferase 9 U/L (0-31); Albumin Level 4.6 g/dL (3.5-5.0); Alkaline Phosphatase 73 U/L (39-117); Anion Gap 15 (12-20); Aspartate Amino Transferase 13 U/L (5-31); Bilirubin Total 0.3 mg/dL (0.0-1.0); Blood Urea Nitrogen 8 mg/dL (9-16); Calcium 9.3 mg/dL (8.4-10.2); Carbon Dioxide 27 mmol/L (22-29); Chloride 104 mmol/L (96-108); Creatinine Clr Calc Pharmacy 67.7; Estimated Glomerular Filt Rate > 60; Ethanol < 10 mg/dL; Glucose Random 90 mg/dL (60-115); Magnesium 1.9 mg/dL (1.6-2.6); Potassium 3.9 mmol/L (3.3-5.1); Sodium 142 mmol/L (135-145); Total Protein 6.8 g/dL (6.5-8.0)
[2022-07-13 23:09] LABS: COVID-19 Test Negative (Negative); IDNOW Serial# 55D5AD1C
[2022-07-13 23:56] VITALS: BP 128/77; PULSE 76; RESP 17; TEMP 37.2; O2SAT 98
[2022-07-14 00:01] LABS: Amphetamine Screen Urine Not Detected (Not Detect); Barbiturates, Urine Not Detected (Not Detect); Benzodiazepines Screen Urine POSITIVE (Not Detect); Cannabinoid Screen Urine Not Detected (Not Detect); Cocaine Screen Urine Not Detected (Not Detect); Fentanyl, urine Not Detected (Not Detect); Opiate Screen Urine Not Detected (Not Detect); Phencyclidine Screen Urine Not Detected (Not Detect)
[2022-07-14] MEDS: Ketorolac Tromethamine 60 MG/2 ML VIAL IM ×2 (00:18→06:44)
[2022-07-14 02:12] VITALS: BP 99/45; PULSE 95; RESP 16; TEMP 37.1; O2SAT 96
[2022-07-14 03:52] VITALS: BP 126/80; PULSE 72; RESP 15; TEMP 36.8; O2SAT 98
[2022-07-14 05:17] VITALS: BP 125/84; PULSE 71; RESP 15; TEMP 37; O2SAT 98
--- NOTE | 2022-07-14 05:26 | PC.NURSE ---
N referral submtted per Dr Almeida.
[2022-07-14 07:46] VITALS: BP 127/84; PULSE 78; RESP 14; TEMP 37.1; O2SAT 99
[2022-07-14] MEDS: Acetaminophen 325 MG TABLET 975 MG PO (08:39)
--- NOTE | 2022-07-14 11:41 | PC.NURSE ---
Pt endorses severe depression, Denies SI/HI/Av Hallucinations. Belongings inventoried by myself and freda ERT. Belongings in locer 11
--- NOTE | 2022-07-14 11:54 | PHA.MEDREC ---
Pharmacy Consult ? Medication Reconciliation Pharmacy has completed the medication reconciliation. Patient reports she was taking ativan 1 mg daily and 2 mg at bedtime but stopped because it does not work. Patient reports not using trazodone because it does not work. patient has not been taking ablifiy either. Reports that chlorpromazine cause the her to go insane. Abril Nicholson, PharmD
[2022-07-14 12:00] VITALS: RESP 18
--- NOTE | 2022-07-14 12:02 | PC.NURSE ---
Kitchen notified of vegetarian lunch request
--- NOTE | 2022-07-14 12:19 | PC.NURSE ---
Pt reports taking simeonethacone w/ every meal.
[2022-07-14] MEDS: Ibuprofen 600 MG TABLET PO (13:42)
[2022-07-14] MEDS: Simethicone 80 MG TAB.CHEW PO ×2 (13:43→17:51)
[2022-07-14 16:30] VITALS: BP 148/99; PULSE 84; RESP 18; TEMP 36.5; O2SAT 100
[2022-07-14 16:45] VITALS: BMI 20.9
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
[2022-07-14] MEDS: LORazepam 1 MG TABLET PO (20:47)
[2022-07-14] MEDS: TiZANidine HCL 4 MG TABLET 16 MG PO (20:48)
[2022-07-14] MEDS: Mirtazapine 15 MG TABLET PO (20:48)
[2022-07-14] MEDS: Simethicone 80 MG TAB.CHEW 160 MG PO (20:49)
[2022-07-14] MEDS: Acetaminophen 325 MG TABLET 650 MG PO (20:49)
[2022-07-15] MEDS: Acetaminophen 325 MG TABLET 650 MG PO ×2 (03:48→20:31)
[2022-07-15] MEDS: hydrOXYzine HCL 25 MG TABLET PO ×3 (03:48→15:00)
[2022-07-15] MEDS: Ketorolac Tromethamine 60 MG/2 ML VIAL IM ×2 (05:17→16:00)
[2022-07-15 07:46] LABS: Estimated Average Glucose 100 mg/dL; Hemoglobin A1c % 5.1 %
[2022-07-15 07:48] LABS: Alanine Aminotransferase 9 U/L (0-31); Albumin Level 4.2 g/dL (3.5-5.0); Alkaline Phosphatase 64 U/L (39-117); Anion Gap 15 (12-20); Aspartate Amino Transferase 15 U/L (5-31); Bilirubin Total 0.2 mg/dL (0.0-1.0); Blood Urea Nitrogen 11 mg/dL (9-16); Calcium 9.4 mg/dL (8.4-10.2); Carbon Dioxide 27 mmol/L (22-29); Chloride 104 mmol/L (96-108); Cholesterol 226 mg/dL; Creatinine Clr Calc Pharmacy 75.7; Estimated Glomerular Filt Rate > 60; Glucose Fasting 80 mg/dL (60-99); HDL Cholesterol 58 mg/dL; LDL Cholesterol Calculated 150 mg/dl; Potassium 3.8 mmol/L (3.3-5.1); Sodium 142 mmol/L (135-145); Total Protein 6.3 g/dL (6.5-8.0); Triglycerides 92 mg/dL
[2022-07-15 08:09] LABS: Thyroid Stimulating Hormone 0.67 uIU/mL (0.32-4.0)
[2022-07-15 08:14] VITALS: BP 146/73; PULSE 94; RESP 18; TEMP 36.7; O2SAT 98
[2022-07-15 08:22] LABS: Folate 17.5 ng/mL (> or = 4.0); Vitamin B12 301 pg/mL (200-900)
[2022-07-15 08:30] VITALS: BP 146/73; PULSE 94; RESP 18; TEMP 36.7; O2SAT 98
[2022-07-15] MEDS: LORazepam 1 MG TABLET PO (09:22)
[2022-07-15] MEDS: Simethicone 80 MG TAB.CHEW 160 MG PO ×3 (09:22→18:10)
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
[2022-07-15] MEDS: OLANZapine 10 MG TABLET PO (15:59)
[2022-07-15 20:30] VITALS: BP 156/86; PULSE 91; RESP 16; TEMP 36.6; O2SAT 100
[2022-07-15] MEDS: OLANZapine 10 MG TABLET 20 MG PO (20:30)
[2022-07-15] MEDS: Mirtazapine 30 MG TABLET PO (20:30)
[2022-07-15] MEDS: LORazepam 1 MG TABLET 2 MG PO (20:31)
[2022-07-15] MEDS: TiZANidine HCL 4 MG TABLET 20 MG PO (20:32)
[2022-07-16 09:00] VITALS: BP 159/67; PULSE 86; TEMP 37; O2SAT 100
[2022-07-16] MEDS: Simethicone 80 MG TAB.CHEW 160 MG PO ×3 (09:05→18:20)
[2022-07-16] MEDS: LORazepam 1 MG TABLET PO (09:05)
[2022-07-16] MEDS: Divalproex Sodium ER 500 MG TAB.ER.24H PO ×2 (13:15→20:31)
[2022-07-16] MEDS: OLANZapine 10 MG TABLET PO ×2 (13:15→18:21)
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
[2022-07-16] MEDS: Ketorolac Tromethamine 15 MG/ML VIAL IM (17:03)
[2022-07-16] MEDS: hydrOXYzine HCL 50 MG TABLET PO (18:21)
[2022-07-16 20:25] VITALS: BP 117/68; PULSE 78; RESP 16; TEMP 36.7; O2SAT 100
[2022-07-16] MEDS: diazePAM 5 MG TABLET 10 MG PO (20:29)
[2022-07-16] MEDS: Ondansetron ODT 4 MG TAB.RAPDIS TRANSLINGU (20:29)
[2022-07-16] MEDS: TiZANidine HCL 4 MG TABLET 20 MG PO (20:30)
[2022-07-16] MEDS: Mirtazapine 30 MG TABLET PO (20:31)
[2022-07-16] MEDS: OLANZapine 10 MG TABLET 20 MG PO (20:31)
[2022-07-16] MEDS: Acetaminophen 325 MG TABLET 650 MG PO (20:32)
[2022-07-17] MEDS: hydrOXYzine HCL 50 MG TABLET PO ×2 (02:07→17:10)
[2022-07-17] MEDS: OLANZapine 10 MG TABLET PO ×3 (02:07→17:10)
[2022-07-17 08:44] VITALS: BP 111/64; PULSE 64; RESP 16; TEMP 36.4; O2SAT 99
[2022-07-17] MEDS: diazePAM 5 MG TABLET PO (08:47)
[2022-07-17] MEDS: Ondansetron ODT 4 MG TAB.RAPDIS TRANSLINGU ×2 (08:49→14:44)
[2022-07-17] MEDS: Simethicone 80 MG TAB.CHEW 160 MG PO ×3 (08:49→17:56)
[2022-07-17] MEDS: Ketorolac Tromethamine 15 MG/ML VIAL IM (12:20)
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
[2022-07-17] MEDS: Magnesium Hydrox/Alum Hydrox 30 ML ORAL.SUSP PO (14:44)
[2022-07-17] MEDS: Mirtazapine 15 MG TABLET 45 MG PO (19:59)
[2022-07-17] MEDS: Acetaminophen 325 MG TABLET 650 MG PO (19:59)
[2022-07-17 20:00] VITALS: BP 93/57; PULSE 77; RESP 16; TEMP 36.6; O2SAT 99
[2022-07-17] MEDS: Divalproex Sodium ER 500 MG TAB.ER.24H 1000 MG PO (20:00)
[2022-07-17] MEDS: diazePAM 5 MG TABLET 10 MG PO (20:00)
[2022-07-17] MEDS: OLANZapine 10 MG TABLET 30 MG PO (20:00)
[2022-07-17] MEDS: hydrOXYzine HCL 25 MG TABLET PO (20:01)
[2022-07-17] MEDS: TiZANidine HCL 4 MG TABLET 20 MG PO (20:01)
[2022-07-18 01:50] VITALS: BP 109/72; PULSE 71; RESP 18
[2022-07-18] MEDS: OLANZapine 5 MG TABLET PO (01:50)
[2022-07-18] MEDS: hydrOXYzine HCL 50 MG TABLET PO ×2 (01:53→20:21)
[2022-07-18] MEDS: OLANZapine 10 MG TABLET PO ×4 (04:34→22:14)
[2022-07-18] MEDS: Simethicone 80 MG TAB.CHEW 160 MG PO ×3 (09:16→18:21)
[2022-07-18] MEDS: diazePAM 5 MG TABLET PO (09:16)
[2022-07-18 09:17] VITALS: BP 139/76; PULSE 81; RESP 16; TEMP 36.6; O2SAT 96
[2022-07-18 12:46] LABS: Appearance Urine Clear; Color Urine Yellow; Glucose Urine UA 100 mg/dL (Negative); Leukocyte Esterase Urine Negative (Negative); Nitrite Urine Negative (Negative); UMIC TRIGGER UACC YES; Urine Blood Small (1+) (Negative); Urine Ketones Negative (Negative); Urine Protein Negative (Neg-Trace)
[2022-07-18] MEDS: Ketorolac Tromethamine 15 MG/ML VIAL IM (12:48)
[2022-07-18 12:58] LABS: Bacteria Urine None Seen (None Seen); Hyaline Casts Urine 0-2 /LPF (0-2); RBC Urine 0-2 /HPF (0-2); Squamous Epithelial Cell Urine 0-2 /HPF (0-2); WBC Urine 0-5 /HPF (0-5)
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
--- NOTE | 2022-07-18 15:12 | P.CONHOSP_ITS ---
History of Present Illness Data of Consult Service Date: 07/18/22 Requesting physician: Omar Jean Primary Care Provider: Unknown Physician HPI Reason for consult: jaw pain 52 year old female with history of mood disorder and insomnia admitted to psychiatry with consult placed to medicine for evaluation of bilateral jaw pain ongoing for 3 weeks. Pt reports intermittent jaw tightness and pain at the TMJ bilaterally. Unable to identify any exacerbation factors. has been getting IM injections ketorolac with good improvement in symptoms. Has not been trialed on PO nsaids. States at home has tolerated ibuprofen, but had GI bleed with naproxen. Also has been getting 20mg tizanidine at bedtime (home dose is 4mg nightly) as well as valium. No fevers, chills, ear pain, sinus pain, sore throat, neck pain. Review of Systems Review of Systems: General: No fevers, malaise, unintentional weight loss HEENT: No sore throat, ear pain, sinus pain Cardiovascular: No chest pain, palpitations, or leg edema Respiratory: No shortness of breath, wheezing, cough GI: No dysphagia MSK: +b/l jaw pain Skin: No rashes or lesions PMFSH Medical History Anal fissure Anemia Anxiety Cervical radiculitis Cervical spinal cord compression Gonsalves hemangioma Chronic diarrhea Chronic narcotic use Chronic night sweats Chronic pain Contact dermatitis Cough Depression Dysconjugate gaze Dysuria Failed back surgical syndrome Fibromyalgia Gastric stress ulcer Gluteal pain Irritable bowel syndrome Left rib fracture Leg weakness Leukocytosis Low back pain Low ferritin Lumbar radiculitis Lumbar radiculopathy, chronic Medication side effects Mental status change resolved Muscle spasm Neck pain Panic attacks Paralysis Paresthesia of right upper limb 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 Pharyngitis Phlebitis Plantar wart Presbycusis Pyogenic granuloma Rash Right cervical radiculopathy Right elbow pain Sleep disturbance Social anxiety disorder Tachycardia Tubular adenoma Underweight Use of opiates for therapeutic purposes Vaginal discharge Vaginitis Viral gastroenteritis Vitamin D deficiency Yeast vaginitis Family History (Updated 07/18/22 @ 15:17 by GILMA Mora) Father AAA (abdominal aortic aneurysm) Mother TMJ (temporomandibular joint disorder) Surgical History H/O colectomy H/O endoscopy H/O laparoscopy Hx of colonoscopy S/P cervical discectomy Social History Household Members: None Household Members Other:: Boyfriend Housing: Condominium Do you presently have visiting nurse or other home services: No Alcohol intake: current Alcohol intake frequency: holidays/special occasions only Patient Tobacco Use Status: Never used Tobacco e-Cigarette/Vaping Use: Never Used Second Hand Smoke Exposure: No Use of substances other than those prescribed or required for medical reasons: No Substance Use Type: Marijuana Currently Displaying Signs/Symptoms of Drug Intoxication Withdrawal: No Have you been hit, kicked, punched, or otherwise hurt by someone within the past year? If so, by whom?: No Do you feel safe in your current relationship?: No Current Relationship Is there a partner from a previous relationship who is making you feel unsafe now?: No Are you made to feel afraid or neglected: No Spiritual Healthcare Practices: Reports she does not want to engage while inpatient at this time. [facility]anda[facility] Healthcare Practices: Reports she does not want to engage while inpatient at this time. Cultural Healthcare Practices: Reports she does not want to engage while inpatient at this time. Advance Directives: No Do you have thoughts of harming others: None Do you have a plan to hurt others: No Plan Recently lost weight without trying: Unsure Eating poorly because of decreased appetite: Yes Patient : No : No service: No Sexual orientation: Straight/Heterosexual Meds Allergies Allergy/AdvReac Type Severity Reaction Status Date / Time duloxetine [From CYMBALTA] Allergy Unknown Hallucinati Verified 05/18/22 10:59 ons morphine [MORPHINE] Allergy Unknown HALLUCINATI Verified 05/18/22 10:59 ONS Phenylpiperazine AdvReac Severe hallucinati Verified 05/18/22 10:59 Antidepressant ons Tetracyclic Antidepressants AdvReac Severe hallucinati Verified 05/18/22 10:59 ons fentanyl [FENTANYL] AdvReac Unknown Hallucinati Verified 05/18/22 10:59 ons Active Medications: Current Medications Acetaminophen (Acetaminophen 325 Mg Tablet) 650 mg PO Q6H PRN PRN Reason: Headache/Pain Mild Scale (1-3) Last Admin: 07/17/22 19:59 Dose: 650 mg Al Hydroxide/Mg Hydroxide (Magnesium Hydrox/Alum Hydrox 30 Ml Oral.Susp) 30 ml PO Q6H PRN PRN Reason: Heartburn/Nausea Last Admin: 07/17/22 14:44 Dose: 30 ml Diazepam (Diazepam 5 Mg Tablet) 10 mg PO BEDTIME [facility] Last Admin: 07/17/22 20:00 Dose: 10 mg Diazepam (Diazepam 5 Mg Tablet) 5 mg PO DAILY [facility] Last Admin: 07/18/22 09:16 Dose: 5 mg Divalproex Sodium (Divalproex Sodium Er 500 Mg Tab.Er.24h) 1,000 mg PO BEDTIME [facility] Last Admin: 07/17/22 20:00 Dose: 1,000 mg Hydroxyzine HCl (Hydroxyzine Hcl 50 Mg Tablet) 50 mg PO Q4H PRN PRN Reason: Anxiety Last Admin: 07/18/22 01:53 Dose: 50 mg Magnesium Hydroxide (Milk Of Magnesia 30 Ml Oral.Susp) 30 ml PO DAILY PRN PRN Reason: Constipation Mineral Oil (Mineral Oil Enema 133 Ml Enema) 133 ml [place] DAILY PRN PRN Reason: impaction Mirtazapine (Mirtazapine 15 Mg Tablet) 45 mg PO BEDTIME [facility] Last Admin: 07/17/22 19:59 Dose: 45 mg Olanzapine (Olanzapine 10 Mg Tablet) 30 mg PO BEDTIME [facility] Last Admin: 07/17/22 20:00 Dose: 30 mg Olanzapine (Olanzapine 10 Mg Tablet) 10 mg PO BID PRN PRN Reason: agitation Last Admin: 07/18/22 11:21 Dose: 10 mg Ondansetron HCl (Ondansetron Odt 4 Mg Tab.Rapdis) 4 mg TRANSLINGU Q6H PRN PRN Reason: Nausea Last Admin: 07/17/22 14:44 Dose: 4 mg Simethicone (Simethicone 80 Mg Tab.Chew) 160 mg PO TIDWM [facility] Last Admin: 07/18/22 12:51 Dose: 160 mg Tizanidine HCl (Tizanidine Hcl 4 Mg Tablet) 20 mg PO BEDTIME [facility] Last Admin: 07/17/22 20:01 Dose: 20 mg Home Medications Medication Instructions Recorded Confirmed Last Taken Type tizanidine 4 mg tablet 4 tab PO BEDTIME 12/25/21 07/14/22 Unknown History acetaminophen 325 mg tablet 650 mg PO Q4H PRN Pain 07/14/22 07/14/22 Unknown History hydroxyzine pamoate 25 mg capsule 1 cap PO DAILY PRN Anxiety 07/14/22 07/14/22 Unknown History ibuprofen 400 mg tablet 400 mg PO Q6H PRN Pain 07/14/22 07/14/22 Unknown History simethicone 80 mg chewable tablet 80 mg PO TIDWM 07/14/22 07/14/22 Unknown History trazodone 150 mg tablet 1 tab PO BEDTIME PRN Insomnia 07/14/22 07/14/22 Unknown History Physical Exam Vital Signs and Narrative: Vital Signs: Last Vital Signs Temp 97.9 F 07/18/22 09:17 Pulse 81 07/18/22 09:17 Resp 16 07/18/22 09:17 BP 139/76 07/18/22 09:17 Pulse Ox 96 07/18/22 09:17 O2 Del Method 07/18/22 09:17 BMI result Body Mass Index 20.9 Constitutional - Awake and Alert, No apparent distress Eyes - PERRLA, EOMI Ears: No tenderness with manipulation pinna and tragus, canals clear Cardiovascular - S1S2, RRR, No edema Respiratory - Normal lung expansion, Normal respiratory effort, No respiratory distress, CTA bilaterally Musculoskeletal - Maxillary sinus nontender to palpation. Tenderness of the TMJ b/l without crepitus. Full ROM upper and lower mandible Skin - Warm/Dry Neurological - Alert & oriented x3, CN II-XII in tact Results Labs CBC and Chem 7: 07/13/22 22:44 07/15/22 07:21 Labs: Laboratory Results - last 24 hr 07/18/22 Unknown Urine Color Yellow Urine Appearance Clear Urine pH 6.0 Ur Specific [place] 1.010 Urine Protein Negative Urine Glucose (UA) 100 H Urine Ketones Negative Urine Blood Small (1+) H Urine Nitrite Negative Ur Leukocyte Esterase Negative Urine RBC 0-2 Urine WBC 0-5 Ur Squamous Epith Cells 0-2 Urine Bacteria None Seen Hyaline Casts 0-2 Assessment and Plan (1) TMJ (temporomandibular joint disorder): Status: Acute Plan 52 year old female with history of mood disorder and insomnia admitted to psychiatry with consult placed to medicine for evaluation of bilateral TMJD. Pt with b/l TMJD with tenderness to palpation but full ROM of the jaw. There is no crepitus. Reports good response with torodol. Recommend oral longer acting NSAID such as naproxen 500mg BID in place of IM ketorolac x 10 days. Naproxen favored over ibuprofen. She needs to take this medication with food as she had adverse response in the past. Will also have her take omperazole 20mg every morning for the duration of NSAID use to minimize risk of GI upset/bleed. Lower dose of tizanidine 4mg to be taken nightly as a muscle relaxer for the TMJD. If symptoms persist, patient can get mouthguard for nighttime use at local pharmacy or follow up outpt with her dentist. Thank you for allowing me to participate in this consult. Signing off at this time. Please do not hesitate to call for further questions.
[2022-07-18] MEDS: NaPROXEN 500 MG TABLET PO (16:27)
[2022-07-18] MEDS: Fluconazole 150 MG TABLET PO (16:29)
[2022-07-18] MEDS: Ondansetron ODT 4 MG TAB.RAPDIS TRANSLINGU (16:31)
[2022-07-18 20:00] VITALS: BP 140/75; PULSE 81; RESP 16; TEMP 36.4; O2SAT 100
[2022-07-18] MEDS: OLANZapine 10 MG TABLET 30 MG PO (20:20)
[2022-07-18] MEDS: Magnesium Hydrox/Alum Hydrox 30 ML ORAL.SUSP PO (20:20)
[2022-07-18] MEDS: Mirtazapine 15 MG TABLET 45 MG PO (20:21)
[2022-07-18] MEDS: diazePAM 5 MG TABLET 10 MG PO (20:21)
[2022-07-18] MEDS: Divalproex Sodium ER 500 MG TAB.ER.24H 1000 MG PO (20:21)
[2022-07-18] MEDS: TiZANidine HCL 4 MG TABLET PO (21:00)
[2022-07-19] MEDS: OLANZapine 10 MG TABLET PO (03:01)
[2022-07-19] MEDS: hydrOXYzine HCL 50 MG TABLET PO ×3 (03:01→20:23)
[2022-07-19] MEDS: Milk of Magnesia 30 ML ORAL.SUSP PO ×2 (03:06→11:21)
[2022-07-19 07:00] VITALS: BMI 21.8
[2022-07-19 09:00] VITALS: BP 123/74; PULSE 89; RESP 20; TEMP 36.3; O2SAT 97
[2022-07-19] MEDS: Omeprazole 20 MG CAPSULE.DR PO (09:12)
[2022-07-19] MEDS: NaPROXEN 500 MG TABLET PO ×2 (09:13→20:23)
[2022-07-19] MEDS: Simethicone 80 MG TAB.CHEW 160 MG PO ×3 (09:13→17:50)
[2022-07-19] MEDS: diazePAM 5 MG TABLET PO (09:13)
--- NOTE | 2022-07-19 10:00 | PC.NURSE ---
On AM evaluation patient reported she was able to sleep and I don't have jaw pain!
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
[2022-07-19] MEDS: Acetaminophen 325 MG TABLET 650 MG PO (16:31)
[2022-07-19 20:00] VITALS: BP 119/78; PULSE 95; RESP 18; TEMP 36.9; O2SAT 98
[2022-07-19] MEDS: Divalproex Sodium ER 500 MG TAB.ER.24H 1000 MG PO (20:22)
[2022-07-19] MEDS: OLANZapine 10 MG TABLET 30 MG PO (20:22)
[2022-07-19] MEDS: TiZANidine HCL 4 MG TABLET 16 MG PO (20:22)
[2022-07-19] MEDS: diazePAM 5 MG TABLET 10 MG PO (20:23)
[2022-07-19] MEDS: Mirtazapine 15 MG TABLET 45 MG PO (20:23)
[2022-07-20 09:15] VITALS: BP 156/94; PULSE 95; RESP 18; TEMP 36.4; O2SAT 98
[2022-07-20] MEDS: Omeprazole 20 MG CAPSULE.DR PO (09:27)
[2022-07-20] MEDS: diazePAM 5 MG TABLET PO (09:27)
[2022-07-20] MEDS: Simethicone 80 MG TAB.CHEW 160 MG PO (09:28)
[2022-07-20] MEDS: NaPROXEN 500 MG TABLET PO (09:28)
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
[2022-07-20] MEDS: Acetaminophen 325 MG TABLET 650 MG PO (10:35)
--- NOTE | 2022-07-20 10:55 | PC.NURSE ---
Patient alert, oriented x3. Patient denies SI/HI, denies AH/VH- reports she feels ready and anxious for discharge. Patient denies any further jaw pain and stated in AM I slept! Affect constricted, gait steady- reviewed all belongings and discharge instructions with patient- patient verbalized understanding- no concerns reported.
== END 2022-07-20 10:55 | disposition home or self-care (01) | DRG 885 ==
LOC: HO.ED 07-14 13:51 → HO.PADLT16 07-14 16:16
PROVIDERS: Social Worker; Admitting Provider Psychiatry & Neurology Psychiatry; Emergency Provider Internal Medicine; Visit Provider Psychiatry & Neurology Psychiatry
DX: F31.10 Bipolar disorder, current episode manic without psychotic features, unspecified (principal); F14.10 Cocaine abuse, uncomplicated; M26.603 Bilateral temporomandibular joint disorder, unspecified; Z20.822 Contact with and (suspected) exposure to COVID-19; Z88.5 Allergy status to narcotic agent; Z88.8 Allergy status to other drugs, medicaments and biological substances; Z79.899 Other long term (current) drug therapy
CPT/HCPCS: 36415; 80053; 80061; 80307; 81001; 82077; 82607; 82746; 83036; 83735; 84443; 85025; 87086; 87147; 87635; 93005; 99285; J1885

== ENCOUNTER 2022-09-05 06:00 | Outpatient (REF) | payer MEDICARE, OTHER, SELFPAY | END 2022-09-05 06:01 | disposition home or self-care (01) | LOC: CF 06:00 | PROVIDERS: Visit Provider Internal Medicine | DX: M54.16 Radiculopathy, lumbar region (principal) | CPT/HCPCS: J1100; J2795; Q9965; Q9967 ==

== ENCOUNTER 2022-09-05 08:34 | Inpatient (IN) | payer MEDICARE, OTHER, SELFPAY ==
--- NOTE | 2022-09-05 | ECG_ITS ---
Test Reason : MEDICAL CLEARANCE Blood Pressure : / mmHG Vent. Rate : 068 BPM Atrial Rate : 068 BPM P-R Int : 160 ms QRS Dur : 066 ms QT Int : 404 ms P-R-T Axes : 065 037 048 degrees QTc Int : 429 ms Normal sinus rhythm Possible Left atrial enlargement Low voltage QRS Nonspecific ST and T wave abnormality Abnormal ECG When compared with ECG of 13-JUL-2022 22:21, Nonspecific T wave abnormality now evident in Inferior leads Referred By: Bambi Oliva Electronically Signed By:Payam Cuenca
--- NOTE | 2022-09-05 08:44 | ED.PSYCH ---
HPI - Psych General Chief Complaint: Psychiatric Symptoms Stated Complaint: Crisis Time Seen by Provider: 09/05/22 08:44 Source: patient, EMS and other (provider at [facility]) Mode of arrival: EMS Limitations: altered mental status History of Present Illness HPI Narrative: 52 yo female with history of bipolar disorder, delusions, fibromyalgia, panic attacks on chronic benzos, hx anemia, chronic pain who follows with the [facility] who was sent to the ER from the Pain Clinic for bizarre behaviors and concern for catatonia. Patient reportedly took and over to the pain clinic today and was found lost and wandering in the hallways. She was minimally verbal with the provider and not acting appropriately. When asked when she last saw her psychiatrist she said ?the . ? She would not provide any further history. Per the provider at the pain clinic patient has a history of requiring inpatient level of psychiatric care and is concerned that she may be requiring that again now. On arrival to the ER patient says she ?feels fine. ? she does not recall any of the events of today. She denies any alcohol or drugs. She states she lives home alone. Onset (ago): unknown Relieving factors: none Exacerbating factors: none Associated psychiatric symptoms: none Associated symptoms: denies other symptoms Treatments prior to arrival: none Related Data Home Medications Medication Instructions Recorded Confirmed acetaminophen 325 mg tablet 650 mg PO Q4H PRN Pain 07/14/22 07/14/22 hydroxyzine pamoate 25 mg capsule 1 cap PO DAILY PRN Anxiety 07/14/22 07/14/22 ibuprofen 400 mg tablet 400 mg PO Q6H PRN Pain 07/14/22 07/14/22 simethicone 80 mg chewable tablet 80 mg PO TIDWM 07/14/22 07/14/22 Previous Rx's Medication Instructions Recorded diazepam 2 mg tablet 5 mg PO DAILY 30 days #75 tabs 07/20/22 diazepam 2 mg tablet 10 mg PO BEDTIME 30 days #150 tabs 07/20/22 divalproex 500 mg tablet,extended 1,000 mg PO BEDTIME 30 days #60 07/20/22 release 24 hr tabs mirtazapine 15 mg tablet 45 mg PO BEDTIME 30 days #90 tabs 07/20/22 olanzapine 10 mg tablet 10 mg PO DAILY PRN agitation 30 07/20/22 days #30 tabs olanzapine 10 mg tablet 30 mg PO BEDTIME 30 days #90 tabs 07/20/22 tizanidine 4 mg tablet 16 mg PO BEDTIME 28 days #112 tabs 07/31/22 Allergies Allergy/AdvReac Type Severity Reaction Status Date / Time duloxetine [From CYMBALTA] Allergy Unknown Hallucinati Verified 07/30/22 10:14 ons morphine [MORPHINE] Allergy Unknown HALLUCINATI Verified 07/30/22 10:14 ONS Phenylpiperazine AdvReac Severe hallucinati Verified 07/30/22 10:14 Antidepressant ons Tetracyclic Antidepressants AdvReac Severe hallucinati Verified 07/30/22 10:14 ons fentanyl [FENTANYL] AdvReac Unknown Hallucinati Verified 07/30/22 10:14 ons Review of Systems Review of Systems: Constitutional: No Fever, No Chills ENT/Mouth: No sore throat, No Rhinorrhea Cardiovascular: No Chest Pain, No SOB Respiratory: No Cough, No Sputum Gastrointestinal: No Nausea, No Vomiting, No Diarrhea, No abdominal Pain Genitourinary: No Dysuria Musculoskeletal: No joint pain, No Myalgias Skin: No Skin Lesions, No rash Neuro: No Weakness, No Dizziness, No Headache Psych: No Anxiety/Panic, + Depression, No SI Heme/Lymph: No Bruising, No Lymphadenopathy PMFSH Past Medical History Medical History Anal fissure Anemia Anxiety Cervical radiculitis Cervical spinal cord compression Gonsalves hemangioma Chronic diarrhea Chronic narcotic use Chronic night sweats Chronic pain Contact dermatitis Cough Depression Dysconjugate gaze Dysuria Failed back surgical syndrome Fibromyalgia Gastric stress ulcer Gluteal pain Irritable bowel syndrome Left rib fracture Leg weakness Leukocytosis Low back pain Low ferritin Lumbar radiculitis Lumbar radiculopathy, chronic Medication side effects Mental status change resolved Muscle spasm Neck pain Panic attacks Paralysis Paresthesia of right upper limb 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 Pharyngitis Phlebitis Plantar wart Presbycusis Pyogenic granuloma Rash Right cervical radiculopathy Right elbow pain Sleep disturbance Social anxiety disorder Tachycardia Tubular adenoma Underweight Use of opiates for therapeutic purposes Vaginal discharge Vaginitis Viral gastroenteritis Vitamin D deficiency Yeast vaginitis Surgical History H/O colectomy H/O endoscopy H/O laparoscopy Hx of colonoscopy S/P cervical discectomy Family History Family History Father AAA (abdominal aortic aneurysm) Mother TMJ (temporomandibular joint disorder) Social History Social History Household Members: None Household Members Other:: Boyfriend Housing: Condominium Do you presently have visiting nurse or other home services: No Alcohol intake: current Alcohol intake frequency: holidays/special occasions only Patient Tobacco Use Status: Never used Tobacco e-Cigarette/Vaping Use: Never Used Second Hand Smoke Exposure: No Substance Use Type: Marijuana Advance Directives: No Advance Directives Information Provided: No service: No Current occupational exposures/hazards: No Sexual orientation: Straight/Heterosexual Physical Exam Vital Signs: Vital Signs: Last Vital Signs Temp 98.9 F 09/05/22 08:56 Pulse 109 H 09/05/22 08:56 Resp 16 09/05/22 08:56 BP 131/86 09/05/22 08:56 Pulse Ox 96 09/05/22 08:56 O2 Del Method 09/05/22 08:56 BMI result Body Mass Index 19.2 Appearance: Alert. Oriented X3. No acute distress. Eyes: Pupils equal, round and reactive to light. ENT: Pharynx normal. Neck: Normal inspection. Neck supple. CVS: Normal heart rate and rhythm. Pulses normal. Respiratory: No respiratory distress. Breath sounds normal. Abdomen: Soft and nontender. +BS x4 Skin: Skin warm and dry. Normal skin color. Normal skin turgor. No rashes. Extremities: No lower extremity edema. Neuro/psych: Oriented X 3. Moves all extremities. CN II-XII intact. Nonfocal. Speech is slow but answers questions appropriately. Course Course Course Narrative: 52-year-old female with history of fibromyalgia, bipolar disorder, delusional, history of chronic pain coming in with concerns of bizarre behavior and catatonia. On arrival to the ER patient is able to verbalize and answer simple questions. She is somewhat slow to respond but nonfocal on examination. She denies any illicit substance use. Will get medical workup, check U tox and alcohol level. Will have her seen by crisis team when she is medically cleared. Reevaluation(s) Reevaluation #1: Labs only positive for slight elevation of her transaminases. Otherwise unremarkable. Her urine toxicology is positive for benzodiazepines for which she is prescribed. It is also positive for marijuana. Alcohol is negative. At this time patient is medically cleared and will be placed into physician observation. Physician observation started at 14:09. Patient placed in physician observation because patient is awaiting [facility] evaluation for the possible need of inpatient psych admission. At the time observation was started patient's vital signs were stable. Patient is alert and oriented. Neuro exam is non-focal. CV: RRR and lungs are clear. Will continue to monitor. Time: 14:09 Medical Decision Making Lab Data Result Diagrams: 09/05/22 10:09 09/05/22 10:09 Labs: Lab Results 09/05/22 09/05/22 09/05/22 Range/Units 09:27 09:39 10:09 WBC 6.8 (4.8-10.8) X10*3/uL RBC 4.77 (4.20-5.50) X10*6/uL Hgb 14.1 (12.0-16.0) g/dl Hct 42.3 (37.0-47.0) % MCV 88.7 (80.0-98.0) fL MCH 29.6 (27.0-33.0) pg MCHC 33.3 (31.0-35.0) g/dl RDW 12.9 (11.0-16.0) % Plt Count 455 H (160-400) X10*3/uL MPV 9.1 L (9.4-12.3) fL Immature Gran % (Auto) 0.4 (0.0-0.4) % Neut % (Auto) 73.3 H (45-73) % Lymph % (Auto) 20.7 (20-40) % Monroe % (Auto) 5.1 (2-11) % Eos % (Auto) 0.1 (0-4) % Baso % (Auto) 0.4 (0-2) % Lymph # (Auto) 1.4 (1.2-4.9) X10*3/uL Monroe # (Auto) 0.4 (0.1-1.2) X10*3/uL Eos # (Auto) 0.0 (0.0-0.4) X10*3/uL Baso # (Auto) 0.0 (0.0-0.2) X10*3/uL Abs Immat Gran (auto) 0.03 (0.00-0.03) X10*3/uL Absolute Neuts (auto) 5.0 (2.0-8.3) x10*3/uL Absolute Nucleated RBC 0.000 (0.0-0.012) X10*3/uL Nucleated RBC % (auto) 0.0 (0.0-0.2) /100WBC Sodium (135-145) mmol/L Potassium (3.3-5.1) mmol/L Chloride (96-108) mmol/L Carbon Dioxide (22-29) mmol/L Anion Gap (12-20) BUN (9-16) mg/dL Creatinine (0.5-1.4) mg/dL Estim Creat Clear Calc Estimated GFR Random Glucose (60-115) mg/dL Calcium (8.4-10.2) mg/dL Magnesium (1.6-2.6) mg/dL Total Bilirubin (0.0-1.0) mg/dL Direct Bilirubin (0.0-0.5) mg/dL AST (5-31) U/L ALT (0-31) U/L Alkaline Phosphatase (39-117) U/L Total Protein (6.5-8.0) g/dL Albumin (3.5-5.0) g/dL Urine Opiates Screen Not Detected (Not Detect) Urine Fentanyl Screen Not Detected (Not Detect) Ur Barbiturates Screen Not Detected (Not Detect) Ur Phencyclidine Scrn Not Detected (Not Detect) Ur Amphetamines Screen Not Detected (Not Detect) U Benzodiazepines Scrn POSITIVE H (Not Detect) Urine Cocaine Screen Not Detected (Not Detect) U Marijuana (THC) Screen POSITIVE H (Not Detect) Ethyl Alcohol mg/dL Influenza Type A (PCR) NEGATIVE (Negative) Influenza Type B (PCR) NEGATIVE (Negative) RSV RNA Qual (PCR) NEGATIVE (Negative) SARS-CoV-2 RNA (RT-PCR) NEGATIVE (Negative) 09/05/22 Range/Units 10:09 WBC (4.8-10.8) X10*3/uL RBC (4.20-5.50) X10*6/uL Hgb (12.0-16.0) g/dl Hct (37.0-47.0) % MCV (80.0-98.0) fL MCH (27.0-33.0) pg MCHC (31.0-35.0) g/dl RDW (11.0-16.0) % Plt Count (160-400) X10*3/uL MPV (9.4-12.3) fL Immature Gran % (Auto) (0.0-0.4) % Neut % (Auto) (45-73) % Lymph % (Auto) (20-40) % Monroe % (Auto) (2-11) % Eos % (Auto) (0-4) % Baso % (Auto) (0-2) % Lymph # (Auto) (1.2-4.9) X10*3/uL Monroe # (Auto) (0.1-1.2) X10*3/uL Eos # (Auto) (0.0-0.4) X10*3/uL Baso # (Auto) (0.0-0.2) X10*3/uL Abs Immat Gran (auto) (0.00-0.03) X10*3/uL Absolute Neuts (auto) (2.0-8.3) x10*3/uL Absolute Nucleated RBC (0.0-0.012) X10*3/uL Nucleated RBC % (auto) (0.0-0.2) /100WBC Sodium 142 (135-145) mmol/L Potassium 3.5 (3.3-5.1) mmol/L Chloride 107 (96-108) mmol/L Carbon Dioxide 24 (22-29) mmol/L Anion Gap 15 (12-20) BUN 4 L (9-16) mg/dL Creatinine 0.80 (0.5-1.4) mg/dL Estim Creat Clear Calc 75.7 Estimated GFR > 60 Random Glucose 103 (60-115) mg/dL Calcium 9.3 (8.4-10.2) mg/dL Magnesium 1.8 (1.6-2.6) mg/dL Total Bilirubin 0.3 (0.0-1.0) mg/dL Direct Bilirubin < 0.2 (0.0-0.5) mg/dL AST 52 H (5-31) U/L ALT 64 H (0-31) U/L Alkaline Phosphatase 76 (39-117) U/L Total Protein 6.7 (6.5-8.0) g/dL Albumin 4.5 (3.5-5.0) g/dL Urine Opiates Screen (Not Detect) Urine Fentanyl Screen (Not Detect) Ur Barbiturates Screen (Not Detect) Ur Phencyclidine Scrn (Not Detect) Ur Amphetamines Screen (Not Detect) U Benzodiazepines Scrn (Not Detect) Urine Cocaine Screen (Not Detect) U Marijuana (THC) Screen (Not Detect) Ethyl Alcohol < 10 mg/dL Influenza Type A (PCR) (Negative) Influenza Type B (PCR) (Negative) RSV RNA Qual (PCR) (Negative) SARS-CoV-2 RNA (RT-PCR) (Negative) Critical Care Time Critical Care Time Critical Care Time: No Discharge Plan Discharge Clinical Impression: Bizarre behavior Patient Disposition: Still a Patient Prescriptions: No Action tizanidine 4 mg tablet 16 mg PO BEDTIME 28 Days Qty: 112 1RF Rx Instructions: pt has been taking hydroxyzine pamoate 25 mg capsule 1 cap PO DAILY PRN (Reason: Anxiety) acetaminophen 325 mg Tablet 650 mg PO Q4H PRN (Reason: Pain) ibuprofen 400 mg Tablet 400 mg PO Q6H PRN (Reason: Pain) simethicone 80 mg Tablet,Chewable 80 mg PO TIDWM olanzapine 10 mg Tablet 30 mg PO BEDTIME 30 Days Qty: 90 0RF olanzapine 10 mg Tablet 10 mg PO DAILY PRN (Reason: agitation) 30 Days Qty: 30 0RF diazepam 2 mg Tablet 10 mg PO BEDTIME 30 Days Qty: 150 0RF diazepam 2 mg Tablet 5 mg PO DAILY 30 Days Qty: 75 0RF divalproex 500 mg Tablet Extended Release 24 Hr 1,000 mg PO BEDTIME 30 Days Qty: 60 0RF mirtazapine 15 mg Tablet 45 mg PO BEDTIME 30 Days Qty: 90 0RF
[2022-09-05 08:56] VITALS: BP 131/86; PULSE 109; RESP 16; TEMP 37.2; O2SAT 96; BMI 19.2
--- OUTSIDE RECORDS SUMMARY | 2022-09-05 09:10 | XMS_ITS ---
:1970 Author Care Team Providers Name Role Phone JF STEINBERG MD Primary Care Provider [phone] OTHER [phone] Allergies Code Code System Name Reaction Severity Status Onset Chicken Derived ? ? Deactivated Medications Name Status Start Date Stop Date ? ? alprazolam 0.5 mg tablet Completed ? 014 Take 2 tablets as needed by oral route before head ct for 1 day . calcium acetate(phosphat bind) Active ? N ot available DAILY citalopram 20 mg tablet Completed 01/17/2011 06/15/20 11 DAILY cyclobenzaprine 10 mg tablet Active ? Not available TAKE 1 TABLET BY MOUTH EVERY NIGHT AT BEDTIME NEEDED FOR SPA SM Daily Multi Vitamin/Minerals Active ? Not available DAILY diazepam 10 mg tablet Active ? Not availa ble TAKE 1 TABLET BY MOUTH TWICE DAILY NEEDED Dilaudid 2 mg tablet Active ? Not availab le Take 1 tablet 5 times a day by oral route as needed for 10 days . EpiPen 2-Niko Active 04/12/2010 Not available NEEDED FOR ANAPHYLAXIS Fioricet 50 mg-300 mg-40 mg capsule Completed ? 07/03/2014 Take 1 capsule every 4 hours by oral route as needed for 10 day s. Imitrex 50 mg tablet Unknown ? Not availab le Take 1 tablet twice a day by oral route. lorazepam 1 mg tablet Active ? Not availa ble Take 1 tablet by oral route. Lyrica 75 mg capsule Active ? Not availab le TAKE 1 CAPSULE BY MOUTH TWICE DAILY meloxicam 15 mg tablet Unknown 01/08/2014 Not avail able DAILY oxycodone-acetaminophen 5 mg-325 mg tablet Unknown ? Not available Take 1 tablet every 6 hours by oral route as directed for 5 day s. oxycodone-acetaminophen 7.5 mg-325 mg tablet Unknown ? Not available Take 2 tablets every 4-6 hours by oral route as needed for 7 da ys. OxyContin 10 mg tablet,crush resistant,extended release Unknown ? Not available Take 1 tablet every 12 hours by oral route as directed for 30 d ays. prednisone 10 mg tablet Unknown ? Not avai lable 5 tabs day 14 tabs day 23 tabs day 32 tabs day 41 tab day 5Take by oral route. prednisone 20 mg tablet Unknown ? Not avai lable Take 2 tablets every day by oral route for 5 days. prednisone 50 mg tablet Completed ? 06/29/20 14 Take 1 tablet every day by oral route for 5 days. quetiapine 100 mg tablet Active ? Not axel ilable one a day sertraline 50 mg tablet Unknown 12/09/2013 Not avai lable DAILY Transderm-Scop 1 mg over 3 days transdermal patch Completed ? 07/05/2014 Apply 1 patch every 72 hours by transdermal route for 9 days. trazodone 50 mg tablet Unknown 10/24/2012 Not avail able DAILY Valium 5 mg tablet Unknown ? Not available Take 1 tablet twice a day by oral route as needed for 10 days. zolpidem 10 mg tablet Active ? Not availa ble TAKE 1 TABLET BY MOUTH EVERY DAY AT BEDTIME. zolpidem ER 12.5 mg tablet,extended release,multiphase Completed 07/05/2011 12/03/2011 QHS PRN INSOMNIA Problems Name Status Onset Date Source ? Administration of Bacterial and Viral Vaccine Unknown ? Administration of Bacterial and Viral Vaccine Unknown ? Administration of Bacterial and Viral Vaccine Unknown ? Varicose Veins of Lower Extremity Unknown 08/16/2012 ? Varicose Veins of Lower Extremity Unknown 08/16/2012 ? Varicose Veins of Lower Extremity Unknown 08/16/2012 ? Female Genital Organ Symptoms Unknown 08/16/2012 ? Female Genital Organ Symptoms Unknown 08/16/2012 ? Female Genital Organ Symptoms Unknown 08/16/2012 ? Malaise and Fatigue Unknown 08/16/2012 ? Malaise and Fatigue Unknown 08/16/2012 ? Malaise and Fatigue Unknown 08/16/2012 ? Screening for Malignant Neoplasm of Breast Unknown 08/16 ? Screening for Malignant Neoplasm of Breast Unknown 08/16 ? Screening for Malignant Neoplasm of Breast Unknown 08/16 ? Screening for Malignant Neoplasm of Cervix Unknown 08/16 ? Screening for Malignant Neoplasm of Cervix Unknown 08/16 ? Noninflammatory Disorder of the Vagina Unknown 2 ? Noninflammatory Disorder of the Vagina Unknown 2 ? Noninflammatory Disorder of the Vagina Unknown 2 ? Single Major Depressive Episode Unknown 12/11/2013 ? Single Major Depressive Episode Unknown 12/11/2013 ? Single Major Depressive Episode Unknown 12/11/2013 ? Shoulder Joint Pain Unknown 12/11/2013 ? Shoulder Joint Pain Unknown 12/11/2013 ? Shoulder Joint Pain Unknown 12/11/2013 ? Wrist Joint Pain Unknown 12/11/2013 ? Wrist Joint Pain Unknown 12/11/2013 ? Wrist Joint Pain Unknown 12/11/2013 ? Joint Pain in Ankle and Foot Unknown 12/11/2013 ? Joint Pain in Ankle and Foot Unknown 12/11/2013 ? Joint Pain in Ankle and Foot Unknown 12/11/2013 ? Pain in Limb Unknown 12/11/2013 ? Pain in Limb Unknown 12/11/2013 ? Pain in Limb Unknown 12/11/2013 ? Adult Health Examination Unknown 12/11/2013 ? Adult Health Examination Unknown 12/11/2013 ? Adult Health Examination Unknown 12/11/2013 ? Laboratory Procedure Performed Unknown 12/11/2013 ? Laboratory Procedure Performed Unknown 12/11/2013 ? Laboratory Procedure Performed Unknown 12/11/2013 ? Screening for Malignant Neoplasm of Cervix Unknown 12/11 ? Knee Pain Unknown 12/11/2013 ? Knee Pain Unknown 12/11/2013 ? Knee Pain Unknown 12/11/2013 ? Low Back Pain Unknown 12/21/2013 ? Low Back Pain Unknown 12/21/2013 ? Low Back Pain Unknown 12/21/2013 ? Anxiety State Active ? ? Insomnia Active ? ? Acute Pharyngitis Active ? Encounter Osteoarthritis of Knee Active ? ? Intervertebral Disc Prolapse Active ? Enc ounter Low Back Pain Active ? Encounter Backache Active ? ? Chronic Back Pain Active ? Encounter Fibromyositis Active ? ? Headache Active ? Encounter Patient Status Finding Active ? ? Screening for Malignant Neoplasm of Cervix Active ? ? Procedures Date Name Performed by ? 06/23/2014 CT, Head [facility] ter (Ct Scan) [address] [place], [place] [address] (Work Place) 03/25/2015 MRI, LS-spine [facility] ter (Imaging) [address] [place], [place] [address] (Work Place) 05/04/2015 Mammogram, Screening Information not axel ilable 05/25/2015 Electrocardiogram In-Office Order Internal Use Only DO Not Attach Compendium DO Not Attach Compendium Do Not Delete/merge [id number] Results Lab Results Date Name Specimen Result Interpretation Description Value Range Status Address ? 05/25/2015 CBC W/ Auto ? Wbc 7.8 K/mm3 (4.0-11.0) F inal [facility] Diff K/mm3 Reference Laboratori es: [address], [place] ? ? ? Rbc 4.54 M/mm3 (4.20-5.40) Final [facility] M/mm3 Reference Laboratori es: [address], [place] ? ? ? Hgb 13.9 gm/dL (12.0-16.0) Final [facility] gm/dL Reference Laboratori es: [address], [place] ? ? ? Hct 42.4 % (37.0-47.0) Final [facility] % Reference Laborator[facility]: [address], [place] ? ? ? Mcv 93.4 fL (80.0-100.0 Final [facility] ) fL Reference Laboratori es: [address], [place] ? ? ? Mch 30.6 pg (27.0-34.0) Final [facility] pg Reference Laboratori es: [address], [place] ? ? Low Mchc 32.8 % (33.0-37.0) Final [facility] % Reference Laboratori es: [address], [place] ? ? High Plt 502 K/mm3 (150-460) Final [facility] K/mm3 Reference Laboratori es: [address], [place] ? ? ? RDW-SD 43.5 fL (<47.0) fL Final [place] Reference Laboratori es: [address], [place] ? ? ? Mpv 10.0 fL (9.4-12.4) Final [facility] fL Reference Laborator[facility] es: [address], [place] ? ? ? Automated 0.0 #/100 ? Final [place] [facility] NRBC WBC's Reference Laboratori es: [address], [place] ? ? ? Abs. NRBC 0.0 K/mm3 ? Final [place] Reference Laboratori es: [address], [place] ? ? ? Neut # 4.4 K/mm3 (1.3-7.0) Final [place] K/mm3 Reference Laboratori es: [address], [place] ? ? ? Lymph # 2.8 K/mm3 (0.8-3.1) Final [facility] K/mm3 Reference Laboratori es: [address], [place] ? ? ? [place]# 0.6 K/mm3 (0.4-0.9) Final [place] K/mm3 Reference Laboratori es: [address], [place] ? ? ? Eo # 0.0 K/mm3 (0.0-0.4) Final [place] [facility] K/mm3 Reference Laboratori es: [address], [place] ? ? ? Baso # 0.1 K/mm3 (0.0-0.1) Final [place] K/mm3 Reference Laboratori es: [address], [place] ? ? ? Abs. Imm 0.0 K/mm3 ? Final [place] Gran Reference Laboratori es: [address], [place] ? ? ? Neut 55.8 % (44-76) % Final [facility] Reference Laboratori es: [address], [place] ? ? ? Lymph 35.9 % (15-43) % Final [facility] Reference Laboratori es: [address], [place] ? ? ? Monocyte 7.0 % (4.5-10.5) Final [place] % Reference Laboratori es: [address], [place] ? ? ? Eo 0.0 % (0-6) % Final [facility] Reference Laboratori es: [address], [place] ? ? ? Baso 1.0 % (0-2) % Final [facility] Reference Laboratori es: [address], [place] ? ? ? Imm Gran 0.3 % (0.0-0.6) % Final [facility] Reference [facility]: [address], [place] 05/25/2015 BMP, Serum ? Glucose 85 mg/dL (70-99) Norma l [facility] or Plasma mg/dL Referen ce Laboratori es: [address], [place] ? ? ? Bun 20 mg/dL (6-20) Final [facility] mg/dL Reference Laboratori es: [address], [place] ? ? ? Creatinine 1.0 mg/dL (0.5-1.0) Final [facility] mg/dL Reference Laboratori es: [address], [place] ? ? ? Sodium 142 mmol/L (133-145) Final [facility] mmol/L Reference Laboratori [facility]: [address], [place] ? ? ? Potassium 4.5 mmol/L (3.6-5.2) Final [facility] mmol/L Reference Laboratori es: [address], [place] ? ? ? Chloride 101 mmol/L (98-107) Final [facility] mmol/L Reference Laboratori es: [address], [place] ? ? ? Bicarbonat 27 mmol/L (22-29) Final [facility] e mmol/L Reference Laboratori es: [address], [place] ? ? ? Anion Gap 14 (4-17) Final [facility] Reference [facility]: [address], [place] ? ? ? Calcium 10.0 mg/dL (8.6-10.5) Final [facility] mg/dL Reference Laboratori es: [address], [place] ? ? ? Est GFR 60 ? Final [facility] Non mL/min/1.73 Reference [place] M2 Laborato amber: [address], [place] ? ? ? Est GFR >60 ? Final [facility] mL/min/1.73 Refe rence [place] M2 Laborato amber: [address], [place] 06/26/2014 Erythrocyte ? No ? ? ? [facility] Sedimentatio observation Ben n Rate by recorded. [facility]y (Lab): [address], [place] 06/26/2014 ESR ? Sedimentat 5 mm/HR (0-20) Final [facility] (Erythrocyte ion Rate mm/HR Re ference Sedimentatio Labo ratories: n Rate), [address], [place] 06/26/2014 C-reactive ? C-reactive 0.1 mg/dL (0-0.5) Final [facility] Protein, Protein mg/dL Referen ce Quantitative Labo ratories: [address], [place] 06/26/2014 C-reactive ? No ? ? ? [facility] Protein, observation Fra nklin Qualitative, recorded. M [facility] Serum (Lab): 164 [facility] 05/31/2014 Streptococcu ? Specimen throat swab ? Final [facility] s Group a, Description R eference Culture, Laborato amber: Throat [address], [place] ? ? ? Special none ? Final [facility] Requests Referenc e Laboratori es: [address], [place] ? ? ? Culture no group A ? Final [facility] kan beta Reference hemolytic Laborat ories: streptococci [address], [place] ? ? ? Report final ? Final [facility] Status 06/02/2014 Refere nce Laboratori es: [address], [place] 05/31/2014 Streptococcu ? No ? ? ? s Group a, observation Culture, recorded. Isolate 08/16/2012 Shoulder Min ? Result: ? ? Final [facility] 2 Views Left Refe rence Laboratori es: [address], [place] 01/30/2012 beta-HCG, ? HCG plus <1 mIU/mL (0-5) Norma l [place] Qualitative, Beta mIU/mL Refe rence Serum or Laborato amber: Plasma [address], [place] 01/30/2012 Thyroid ? Free T4 1.46 NG/dL (0.70-1.80) F inal [facility] Panel NG/dL Reference Laboratori es: [address], [place] ? ? ? Tsh 0.99 mIU/mL (0.4-4.0) Final [facility] mIU/mL Reference Laboratori es: [address], [place] 01/30/2012 CBC W/ Auto ? Wbc 7.2 K/mm3 (4.0-11.0) F inal [facility] Diff K/mm3 Reference Laboratori es: [address], [place] ? ? ? Rbc 4.43 M/mm3 (4.20-5.40) Final [facility] M/mm3 Reference Laboratori es: [address], [place] ? ? ? Hgb 13.7 gm/dL (12.0-16.0) Final [facility] gm/dL Reference Laboratori es: [address], [place] ? ? ? Hct 41.4 % (37.0-47.0) Final [facility] % Reference Laboratori es: [address], [place] ? ? ? Mcv 93.5 fL (80.0-100.0 Final [place] [facility] ) fL Reference Laboratori es: [address], [place] ? ? ? Mch 30.9 pg (27.0-34.0) Final [place] [facility] pg Reference Laboratori es: [address], [place] ? ? ? Mchc 33.1 % (33.0-37.0) Final [facility] % Reference Laboratori es: [address], [place] ? ? ? Rdw 12.8 % (11.6-14.8) Final [facility] % Reference Laboratori es: [address], [place] ? ? ? Plt 367 K/mm3 (150-460) Final [place] [facility] K/mm3 Reference Laboratori es: [address], [place] ? ? ? Mpv 10.2 fL (9.4-12.4) Final [facility] fL Reference Laboratori es: [address], [place] ? ? ? Automated 0.0 #/100 ? Final [place] [facility] NRBC WBC's Reference Laboratori es: [address], [place] ? Electrocardi ? Rate & ? ? ? In- Office ogram Rhythm Order: Internal U se Only DO No t Attach Compendium DO Not Attach Compendium , Do Not Delete/yuri ge ? ? ? Qrs ? ? ? In-Office Order: Internal U se Only DO No t Attach Compendium DO Not Attach Compendium , Do Not Delete/yuri ge ? ? ? DC ? ? ? In-Office Interval Order: Internal U se Only DO No t Attach Compendium DO Not Attach Compendium , Do Not Delete/yuri ge ? ? ? QRS ? ? ? In-Office Duration Order: Internal U se Only DO No t Attach Compendium DO Not Attach Compendium , Do Not Delete/yuri ge ? ? ? QT ? ? ? In-Office Interval Order: Internal U se Only DO No t Attach Compendium DO Not Attach Compendium , Do Not Delete/yuri ge ? Rapid Strep ? Strep negative ? ? In- Office Group a, Order: Throat Internal U se Only DO No t Attach Compendium DO Not Attach Compendium , Do Not Delete/yuri ge Past Encounters None recorded. Social History Tobacco Smoking Status Never Smoker Vaccine List Vaccine Type Tdap 10/05/2011 Plan of Care Reminders Provider Appointments None recorded. ? ? Lab None recorded. ? ? Referral None recorded. ? ? Procedures None recorded. ? ? Surgeries None recorded. ? ? Imaging None recorded. ? ? Vitals 05/25/2015 03:00PM PRE-OP Height Weight BMI Blood Pressure 5 ft 6.5 in 144 lbs 22.9 kg/m2 104/66 mm[Hg] 04/29/2015 10:45AM URGENT Height Weight BMI Blood Pressure 5 ft 6.5 in 150 lbs 23.8 kg/m2 110/68 mm[Hg] 04/15/2015 10:45AM URGENT Height Weight BMI Blood Pressure 5 ft 6.5 in 149 lbs 23.7 kg/m2 124/78 mm[Hg] 04/08/2015 03:15PM FOLLOW UP Height Weight BMI Blood Pressure 5 ft 6.5 in 151 lbs 3.2 oz 24 kg/m2 123/78 mm[Hg] 03/25/2015 02:30PM URGENT Height Weight BMI Blood Pressure 5 ft 6.5 in 137 lbs 6.4 oz 21.8 kg/m2 103/69 mm[Hg] 06/26/2014 10:00AM URGENT Height Weight BMI Blood Pressure 5 ft 6.5 in 136 lbs 21.6 kg/m2 118/62 mm[Hg] 06/23/2014 10:15AM URGENT Height Weight BMI Blood Pressure 5 ft 6.5 in 135 lbs 21.5 kg/m2 99/67 mm[Hg] 05/31/2014 09:00AM URGENT Height Weight BMI Blood Pressure 5 ft 6.5 in 136 lbs 21.6 kg/m2 92/64 mm[Hg] 12/21/2013 Height Weight Blood Pressure 5 ft 6.5 in 140 lbs 6.4 oz 108/60 mm[Hg] 12/11/2013 Height Weight Blood Pressure 5 ft 6.5 in 140 lbs 3.2 oz 107/62 mm[Hg] 01/05/2013 Height Weight Blood Pressure 5 ft 6.5 in 128 lbs 1.92 oz 111/78 mm[Hg] 12/05/2012 Height Weight Blood Pressure 5 ft 6.5 in 125 lbs 120/84 mm[Hg] 10/10/2012 Height Weight Blood Pressure 5 ft 6.5 in 132 lbs 116/72 mm[Hg] 08/16/2012 Height Weight Blood Pressure 5 ft 6.5 in 131 lbs 100/62 mm[Hg] 02/08/2012 Height Weight Blood Pressure 5 ft 6.5 in 121 lbs 6.4 oz 103/68 mm[Hg] 01/30/2012 Height Weight Blood Pressure 5 ft 6.5 in 124 lbs 106/76 mm[Hg] 12/03/2011 Height Weight Blood Pressure 5 ft 6.5 in 128 lbs 1.92 oz 97/64 mm[Hg] 10/05/2011 Height Weight Blood Pressure 5 ft 6.5 in 128 lbs 105/73 mm[Hg] 06/29/2011 Height Weight Blood Pressure 5 ft 6.5 in 126 lbs 99/61 mm[Hg] 06/15/2011 Height Weight Blood Pressure 5 ft 6.5 in 129 lbs 98/70 mm[Hg] 03/23/2011 Height Weight Blood Pressure 5 ft 6.5 in 130 lbs 6.4 oz 100/62 mm[Hg] 02/07/2011 Height Weight Blood Pressure 5 ft 6.5 in 129 lbs 8 oz 98/67 mm[Hg] 01/17/2011 Weight Blood Pressure 128 lbs 99/65 mm[Hg] 12/01/2010 Height Weight Blood Pressure 5 ft 6.5 in 129 lbs 1.92 oz 95/63 mm[Hg] 09/25/2010 Blood Pressure 108/62 mm[Hg] 04/12/2010 Height Weight Blood Pressure 5 ft 6.5 in 123 lbs 12.8 oz 98/64 mm[Hg]
[2022-09-05 09:45] LABS: Amphetamine Screen Urine Not Detected (Not Detect); Barbiturates, Urine Not Detected (Not Detect); Benzodiazepines Screen Urine POSITIVE (Not Detect); Cannabinoid Screen Urine POSITIVE (Not Detect); Cocaine Screen Urine Not Detected (Not Detect); Fentanyl, urine Not Detected (Not Detect); Opiate Screen Urine Not Detected (Not Detect); Phencyclidine Screen Urine Not Detected (Not Detect)
[2022-09-05 10:15] LABS: MANUAL DIFF FLAG NO
[2022-09-05 10:17] LABS: Basophils Percent Auto 0.4 % (0-2); Eosinophils Percent Auto 0.1 % (0-4); Hematocrit 42.3 % (37.0-47.0); Hemoglobin 14.1 g/dl (12.0-16.0); Imm Gran Abs Auto 0.03 X10*3/uL (0.00-0.03); Imm Gran Pct Auto 0.4 % (0.0-0.4); Lymphocytes Absolute Auto 1.4 X10*3/uL (1.2-4.9); Lymphocytes Percent Auto 20.7 % (20-40); Mean Corpuscular HGB Conc 33.3 g/dl (31.0-35.0); Mean Corpuscular Hemoglobin 29.6 pg (27.0-33.0); Mean Corpuscular Volume 88.7 fL (80.0-98.0); Mean Platelet Volume 9.1 fL (9.4-12.3); Monocytes Absolute Auto 0.4 X10*3/uL (0.1-1.2); Monocytes Percent Auto 5.1 % (2-11); Neutrophils Percent Auto 73.3 % (45-73); Platelet Count 455 X10*3/uL (160-400); Red Blood Count 4.77 X10*6/uL (4.20-5.50); Red Cell Distribution Width 12.9 % (11.0-16.0); White Blood Count 6.8 X10*3/uL (4.8-10.8)
[2022-09-05 10:33] LABS: Influenza A PCR NEGATIVE (Negative); Influenza B PCR NEGATIVE (Negative); Resp Syncy Virus RNA Qual PCR NEGATIVE (Negative); SARS COV2 PCR INHOUSE NEGATIVE (Negative)
[2022-09-05 12:35] LABS: Alanine Aminotransferase 64 U/L (0-31); Albumin Level 4.5 g/dL (3.5-5.0); Alkaline Phosphatase 76 U/L (39-117); Anion Gap 15 (12-20); Aspartate Amino Transferase 52 U/L (5-31); Bilirubin Direct < 0.2 mg/dL (0.0-0.5); Bilirubin Total 0.3 mg/dL (0.0-1.0); Blood Urea Nitrogen 4 mg/dL (9-16); Calcium 9.3 mg/dL (8.4-10.2); Carbon Dioxide 24 mmol/L (22-29); Chloride 107 mmol/L (96-108); Creatinine Clr Calc Pharmacy 75.7; Estimated Glomerular Filt Rate > 60; Ethanol < 10 mg/dL; Glucose Random 103 mg/dL (60-115); Magnesium 1.8 mg/dL (1.6-2.6); Potassium 3.5 mmol/L (3.3-5.1); Sodium 142 mmol/L (135-145); Total Protein 6.7 g/dL (6.5-8.0)
--- OUTSIDE RECORDS SUMMARY | 2022-09-05 22:44 | XMS_ITS ---
:1970 Author Care Team Providers Name Role Phone JF STEINBERG MD Primary Care Provider [phone] [facility] OTHER [phone] Allergies Code Code System Name Reaction Severity [...] quetiapine 100 mg tablet Active ? Not aexl ilable one a day sertraline 50 mg [...] Name Performed by ? 06/23/2014 CT, Head [facility] ter (Ct Scan) [address] [place], [place] [address] (Work Place) 03/25/2015 MRI, LS-spine [facility] ter (Imaging) [address] [place], [place] [address] (Work Place) 05/04/2015 Mammogram, Screening Information not axel ilable 05/25/2015 Electrocardiogram In-Office Order Internal Use Only DO Not Attach Compendium DO Not Attach Compendium Do Not Delete/merge [id number] Results Lab Results Date Name Specimen Result [...] ? ? Automated 0.0 #/100 ? Final [place] NRBC WBC's Reference Laboratori es: [address], [place] ? ? ? Abs. NRBC 0.0 K/mm3 ? Final [place] Reference Laboratori es: [address], [place] ? ? ? Neut # 4.4 K/mm3 (1.3-7.0) Final [place] K/mm3 Reference Laboratori es: [address], [place] ? ? ? Lymph # 2.8 K/mm3 (0.8-3.1) Final [facility] K/mm3 Reference Laboratori es: [address], [place] ? ? ? [place]# 0.6 K/mm3 (0.4-0.9) Final [place] [facility] K/mm3 Reference Laboratori es: [address], [place] ? ? ? Eo # 0.0 K/mm3 (0.0-0.4) Final [place] [facility] K/mm3 Reference Laboratori es: [address], [place] ? ? ? Baso # 0.1 K/mm3 (0.0-0.1) Final [place] K/mm3 Reference Laboratori es: [address], [place] ? ? ? Abs. Imm 0.0 K/mm3 ? Final [place] Gran Reference Laboratori es: [address], [place] ? ? ? Neut 55.8 % (44-76) % Final [facility] Reference Laboratori es: [address], [place] ? ? ? Lymph 35.9 % (15-43) % Final [facility] Reference Laboratori es: [address], [place] ? ? ? Monocyte 7.0 % (4.5-10.5) Final [place] % Reference Laboratori es: [address] 60 ? Final [facility] Non mL/min/1.73 Reference [place] M2 Laborato amber: [address], [place] ? ? ? Est GFR >60 ? Final [facility] mL/min/1.73 Refe rence [place] M2 Laborato amber: [address], [place] 06/26/2014 Erythrocyte ? No ? ? ? [facility] Sedimentatio observation Ben n Rate by recorded. [facility] (Lab): [address], [place] 06/26/2014 ESR ? Sedimentat 5 mm/HR (0-20) Final [facility] (Erythrocyte ion Rate mm/HR Re ference Sedimentatio Labo ratories: n Rate), [address], [place] 06/26/2014 C-reactive ? C-reactive 0.1 mg/dL (0-0.5) Final [facility] Protein, Protein mg/dL Referen ce Quantitative Labo ratories: [address], [place] 06/26/2014 C-reactive ? No ? ? ? [facility] Protein, observation Fra nklin Qualitative, recorded. M [facility] Serum (Lab): 164 [facility] 05/31/2014 Streptococcu ? Specimen throat swab ? Final [facility] s Group a, Description R eference Culture, Laborato amber: Throat [address], [place] ? ? ? Special none ? Final [facility] Requests Referenc e Laboratori es: [address], [place] ? ? ? Culture no group A ? Final [facility] kan beta Reference hemolytic Laborat ories: streptococci [address], [place] ? ? ? Report final ? Final [facility] Status 06/02/2014 Refere nce Laboratori es: [address], [place] 05/31/2014 Streptococcu ? No ? ? ? s Group a, observation Culture, recorded. Isolate 08/16/2012 Shoulder Min ? Result: ? ? Final [facility] 2 Views Left Refe rence Laboratori es: [address], [place] 01/30/2012 beta-HCG, ? HCG plus <1 mIU/mL (0-5) Norma l [facility] Qualitative, Beta mIU/mL Refe rence Serum or [...] ? ? Automated 0.0 #/100 ? Final [place] NRBC WBC's Reference Laboratori es: [address] [...] Do Not Delete/yuri ge ? ? ? MD ? ? ? In-Office Interval Order: Internal [...]
--- NOTE | 2022-09-05 23:51 | PC.ADMIT ---
52 y.o. cisgender female admitted from [facility] CV for psychiatric evaluation. Per crisis report; Pt presents to ER secondary to bizarre behaviors and concern for catatonia from the [facility]. Pt was found lost and wandering the hallways. Pt minimally verbal and not acting appropriately. Pt presents A&Ox2, confused at times, catatonic with slow responses, and minimally engaging. Pt reports I would like to change my name.... Why am I here... I don't want anyone visiting me . Pt reports I can't remember to questions asked. Pt denies si,hi avh at this time. Pt denies any medical concerns at this time. Pt contracted for safety. Pt on 15 min safety checks.
[2022-09-06 00:12] VITALS: BP 104/62; PULSE 74; RESP 13; TEMP 36.5; O2SAT 97
[2022-09-06] MEDS: Divalproex Sodium ER 500 MG TAB.ER.24H PO (00:16)
[2022-09-06 08:00] VITALS: BP 98/63; PULSE 80; RESP 16; TEMP 36.7; O2SAT 96
[2022-09-06] MEDS: ARIPiprazole 2 MG TABLET PO (09:30)
[2022-09-06] MEDS: Benztropine Mesylate 1 MG TABLET PO ×2 (09:30→21:00)
--- NOTE | 2022-09-06 10:52 | HO.PSYADMNOT ---
HPI Date of Service: 09/06/22 Chief Complaint: disorganized Sources of Information: patient interviewed, chart reviewed and crisis/core team assessment reviewed HPI Subjective Notes: Carmona Warning, Conditional Voluntary and 3 Day Narrative: Patient is a 52 year-old woman with hx of bipolar, history of overusing opioid pain medications and benzodiazepine abuse who, recently discharged from July 20, who presents for disorganized behavior at her Pain Clinic. Carry Out Clerk met with patient in interview room; she excused herself momentarily to go to the bathroom but then returned. Patient is a limited historian mostly answering with yes and no questions. She said that she was fine after she was last discharged and has been taking her medications regularly. However, Patient said that over the past 2 weeks she has not been sleeping at all, rather just lying in her bed awake, very tired and wishing she could sleep but unable to; she denies any other manic symptoms and reports that she continued to attend to ADLs though did not eat very much and hardly left the house. She also denies that she was or is feeling depressed. Carry Out Clerk asked how she ended up coming to the hospital and patient says I do not know. I went to the pain clinic and the next thing I know I was here. Carry Out Clerk recounted that reportedly, patient was disorganized at the Pain Clinic, wandering around lost in the hallways; please were called and brought her here. Patient denies any AVH and says she never has hallucinations. She denies any SI or HI. She remains tired and wants help to sleep. Pt agrees to retrial of Thorazine which she helped her i the past. Past Psychiatric History: -past meds: seroquel, haldol, wellbutrin, klonopin, ambien, celexa, -pt has had 5 previous inpatient stays at [facility] OP: currently reconnecting with [facility] as she no longer sees Kylie Talley due to several no show appointment. Medical Evaluation Reviewed: Yes FORMERLY [facility] Medical History Anal fissure Anemia Anxiety Cervical radiculitis Cervical spinal cord compression Gonsalves hemangioma Chronic diarrhea Chronic narcotic use Chronic night sweats Chronic pain Contact dermatitis Cough Depression Dysconjugate gaze Dysuria Failed back surgical syndrome Fibromyalgia Gastric stress ulcer Gluteal pain Irritable bowel syndrome Left rib fracture Leg weakness Leukocytosis Low back pain Low ferritin Lumbar radiculitis Lumbar radiculopathy, chronic Medication side effects Mental status change resolved Muscle spasm Neck pain Panic attacks Paralysis Paresthesia of right upper limb 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 Pharyngitis Phlebitis Plantar wart Presbycusis Pyogenic granuloma Rash Right cervical radiculopathy Right elbow pain Sleep disturbance Social anxiety disorder Tachycardia Tubular adenoma Underweight Use of opiates for therapeutic purposes Vaginal discharge Vaginitis Viral gastroenteritis Vitamin D deficiency Yeast vaginitis Surgical History H/O colectomy H/O endoscopy H/O laparoscopy Hx of colonoscopy S/P cervical discectomy Family History: unknown Social History: Raised by both parents, along with 4 siblings. has 3 older brothers and 1 younger. Met developmental milestones as expected, graduated high school, bachelor's degree. 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 -Pt lives with her boyfriend. son lives with a relative. Substance History: History of cocaine and benzo abuse; currently denies Trauma History: none divulged Diagnostics Vital Signs (24Hr): Vital Signs - 24 hr 09/06/22 00:12 Temperature 97.7 F Pulse Rate 74 Respiratory Rate 13 Blood Pressure 104/62 Pulse Oximetry 97 Oxygen Delivery Method Room Air BMI result Body Mass Index 19.2 Labs Results: 09/05/22 10:09 09/05/22 10:09 Labs: Laboratory Results - last 48 hr 09/05/22 09/05/22 09/05/22 09:27 09:39 10:09 WBC 6.8 RBC 4.77 Hgb 14.1 Hct 42.3 MCV 88.7 MCH 29.6 MCHC 33.3 RDW 12.9 Plt Count 455 H MPV 9.1 L Immature Gran % (Auto) 0.4 Neut % (Auto) 73.3 H Lymph % (Auto) 20.7 Gentry % (Auto) 5.1 Eos % (Auto) 0.1 Baso % (Auto) 0.4 Lymph # (Auto) 1.4 Gentry # (Auto) 0.4 Eos # (Auto) 0.0 Baso # (Auto) 0.0 Abs Immat Gran (auto) 0.03 Absolute Neuts (auto) 5.0 Absolute Nucleated RBC 0.000 Nucleated RBC % (auto) 0.0 Sodium Potassium Chloride Carbon Dioxide Anion Gap BUN Creatinine Estim Creat Clear Calc Estimated GFR Random Glucose Calcium Magnesium Total Bilirubin Direct Bilirubin AST ALT Alkaline Phosphatase Total Protein Albumin Urine Opiates Screen Not Detected Urine Fentanyl Screen Not Detected Ur Barbiturates Screen Not Detected Ur Phencyclidine Scrn Not Detected Ur Amphetamines Screen Not Detected U Benzodiazepines Scrn POSITIVE H Urine Cocaine Screen Not Detected U Marijuana (THC) Screen POSITIVE H Ethyl Alcohol Influenza Type A (PCR) NEGATIVE Influenza Type B (PCR) NEGATIVE RSV RNA Qual (PCR) NEGATIVE SARS-CoV-2 RNA (RT-PCR) NEGATIVE 09/05/22 10:09 WBC RBC Hgb Hct MCV MCH MCHC RDW Plt Count MPV Immature Gran % (Auto) Neut % (Auto) Lymph % (Auto) Gentry % (Auto) Eos % (Auto) Baso % (Auto) Lymph # (Auto) Gentry # (Auto) Eos # (Auto) Baso # (Auto) Abs Immat Gran (auto) Absolute Neuts (auto) Absolute Nucleated RBC Nucleated RBC % (auto) Sodium 142 Potassium 3.5 Chloride 107 Carbon Dioxide 24 Anion Gap 15 BUN 4 L Creatinine 0.80 Estim Creat Clear Calc 75.7 Estimated GFR > 60 Random Glucose 103 Calcium 9.3 Magnesium 1.8 Total Bilirubin 0.3 Direct Bilirubin < 0.2 AST 52 H ALT 64 H Alkaline Phosphatase 76 Total Protein 6.7 Albumin 4.5 Urine Opiates Screen Urine Fentanyl Screen Ur Barbiturates Screen Ur Phencyclidine Scrn Ur Amphetamines Screen U Benzodiazepines Scrn Urine Cocaine Screen U Marijuana (THC) Screen Ethyl Alcohol < 10 Influenza Type A (PCR) Influenza Type B (PCR) RSV RNA Qual (PCR) SARS-CoV-2 RNA (RT-PCR) Meds/Allergies Meds Home Medications Medication Instructions Recorded Confirmed Type acetaminophen 325 mg tablet 650 mg PO Q4H PRN Pain 07/14/22 09/05/22 History aripiprazole 2 mg tablet 1 tab PO QAM 09/05/22 09/05/22 History benztropine 1 mg tablet 1 tab PO BID 09/05/22 09/05/22 History diazepam 2 mg tablet 10 mg PO BEDTIME 09/05/22 09/05/22 History melatonin 3 mg tablet 1 tab PO BEDTIME 09/05/22 09/05/22 History mirtazapine 15 mg tablet 3 tab PO BEDTIME 09/05/22 09/05/22 History olanzapine 10 mg tablet 3 tab PO BEDTIME 09/05/22 09/05/22 History tizanidine 4 mg tablet 4 tab PO BEDTIME 09/05/22 09/05/22 History trazodone 100 mg tablet 2 tab PO BEDTIME 09/05/22 09/05/22 History zolpidem 10 mg tablet 1 tab PO BEDTIME PRN Insomnia 09/05/22 09/05/22 History Allergies Allergies Allergy/AdvReac Type Severity Reaction Status Date / Time duloxetine [From CYMBALTA] Allergy Unknown Hallucinati Verified 07/30/22 10:14 ons morphine [MORPHINE] Allergy Unknown HALLUCINATI Verified 07/30/22 10:14 ONS Phenylpiperazine AdvReac Severe hallucinati Verified 07/30/22 10:14 Antidepressant ons Tetracyclic Antidepressants AdvReac Severe hallucinati Verified 07/30/22 10:14 ons fentanyl [FENTANYL] AdvReac Unknown Hallucinati Verified 07/30/22 10:14 ons Mental Status Exam Mental Status Exam Narrative: Pt is alert and oriented; behavior is superficially cooperative, calm; patient is not in distress; dressed in hospital attire with unkempt hair but adequate hygiene; mood is described as tired and affect blunted; eye contact bit of fixed stare; Speech is sparse, but normal rate, volume and prosody and not pressured; psychomotor retardation present; thought process is goal directed; Thought content is vacuous; answers questions mostly with yes/no no delusional content or paranoid ideations expressed; denies any SI/HI. Denies AVH; no obvious evidence of perceptual disturbance. Patients insight and judgment are impaired. Assessment & Plan Assessment & Plan (1) Bipolar disorder: Status: Acute Qualifiers: Current bipolar episode type: hypomanic Code(s): F31.9 - Bipolar disorder, unspecified Plan Patient is a 52 year-old woman with hx of bipolar, history of overusing opioid pain medications and benzodiazepine abuse who, recently discharged from [facility] July 20, who presents for disorganized behavior at her Pain Clinic. Patient is a limited historian mostly answering with yes and no questions. Patient is not manic; denies depression; denies AVH however may have negative symptoms. Patient says she has no recollection of acting in a disorganized way at the pain clinic; in fact she has no recollection of what happened at at all at the clinic, including whether not she got her injection. Patient says she has been taking her medications regularly and denies overtaking them. Initially on admission lower dose is unsure of adherence however will raise back to home dose regimen. Will add Thorazine p.r.n. for sleep as patient said she has not been able to sleep for 2 weeks. Plan: CV Q 15 minutes checks add Thorazine p.r.n. for insomnia Continue home medication regimen Diazepam 10 mg PO BEDTIME [facility] Divalproex Sodium (Divalproex Sodium Er 500 Mg Tab.Er.24h)? 1,000 mg PO BEDTIME [facility] Mirtazapine? 45 mg PO BEDTIME [facility] Olanzapine 30 mg PO BEDTIME [facility] Trazodone 200mg qhs Will defer to primary team whether to start: -Diazepam 5 mg PO DAILY [facility] -Zolpidem 10mg qhs (pt now on Trazodone 200mg) Patient educated on: diagnosis Informed Consent: understands and further education needed Reason for continued inpatient stay Substantial Risk for: rapid decompensation Statement Statement: I have reviewed the history and physical and performed a pertinent examination on my patient. No changes have occurred unless specified. If the History and Physical was not performed prior to admission, the Hospitalist's service will be consulted for completing the admission physical. Time Spent With Patient Time: Total time managing care of this patient today ____ minutes.
[2022-09-06] MEDS: traZODone HCL 100 MG TABLET 200 MG PO (20:58)
[2022-09-06] MEDS: Divalproex Sodium ER 500 MG TAB.ER.24H 1000 MG PO (20:58)
[2022-09-06] MEDS: TiZANidine HCL 4 MG TABLET 16 MG PO (20:58)
[2022-09-06] MEDS: OLANZapine 10 MG TABLET 30 MG PO (20:59)
[2022-09-06] MEDS: hydrOXYzine HCL 25 MG TABLET PO (21:00)
[2022-09-06] MEDS: Melatonin 3 MG TABLET PO (21:00)
[2022-09-06] MEDS: Mirtazapine 15 MG TABLET 45 MG PO (21:00)
[2022-09-06] MEDS: diazePAM 5 MG TABLET 10 MG PO (21:00)
[2022-09-06 21:07] VITALS: BP 104/56; PULSE 68; TEMP 36.6; O2SAT 97
[2022-09-07 08:39] VITALS: BP 84/46; PULSE 50; TEMP 36.4; O2SAT 98
[2022-09-07] MEDS: ARIPiprazole 2 MG TABLET PO (08:42)
[2022-09-07] MEDS: Benztropine Mesylate 1 MG TABLET PO ×2 (08:42→21:33)
--- NOTE | 2022-09-07 14:32 | HO.PSYCHPN ---
Subjective Subjective Date of Service: 09/07/22 Reason For Visit: disorganized Interim History: appeared to be sleeping in her room, roused to voice. came to interview room. denied sleeping but very much appeared someone who has just been awakened. unable to explain how she was so disoriented yesterday, unable to recall events. states she had an appointment in the pain clinic for an injection yesterday (the appointment did not happen). asking to discharge due to xmas tomorrow. MD suggests she needs to be here for medications mgmt/modification. MD singles out valium as likely problematic and need to taper. pt gathers her blanket, mumbles something to MD which is unintelligible, then exits the interview room. per staff, 3-day up next . isolative, sleeping, eating. calm. Mental Status Exam Mental Status Exam Narrative: Pt is oriented; behavior is superficially cooperative, calm; patient is not in distress; dressed in hospital attire with unkempt hair but adequate hygiene; affect hypo-intense, non-labile; eye contact bit of fixed stare; Speech is sparse, but normal rate, decr loudness and tone; psychomotor retardation present; thought process is goal directed; Thought content is linear and logical but superficial; denies any SI/HI. Denies AVH; no obvious evidence of perceptual disturbance. Patients insight and judgment are impaired. Diagnostics Vital Signs (24Hr): Vital Signs - 24 hr 09/06/22 21:07 09/07/22 08:39 Temperature 97.9 F 97.6 F Pulse Rate 68 50 Blood Pressure 104/56 L 84/46 L Pulse Oximetry 97 98 Oxygen Delivery Method Room Air BMI result Body Mass Index 19.2 Labs Results: 09/05/22 10:09 09/05/22 10:09 Medications Medications Current Medications Acetaminophen (Acetaminophen 325 Mg Tablet) 650 mg PO Q6H PRN PRN Reason: Headache/Pain Mild Scale (1-3) Al Hydroxide/Mg Hydroxide (Magnesium Hydrox/Alum Hydrox 30 Ml Oral.Susp) 30 ml PO Q6H PRN PRN Reason: Heartburn/Nausea Benztropine Mesylate (Benztropine Mesylate 1 Mg Tablet) 1 mg PO BID [facility] Last Admin: 09/07/22 08:42 Dose: 1 mg Diazepam (Diazepam 5 Mg Tablet) 10 mg PO BEDTIME [facility] Last Admin: 09/06/22 21:00 Dose: 10 mg Divalproex Sodium (Divalproex Sodium Er 500 Mg Tab.Er.24h) 1,000 mg PO BEDTIME [facility] Last Admin: 09/06/22 20:58 Dose: 1,000 mg Hydroxyzine HCl (Hydroxyzine Hcl 25 Mg Tablet) 25 mg PO Q6H PRN PRN Reason: Anxiety Last Admin: 09/06/22 21:00 Dose: 25 mg Magnesium Hydroxide (Milk Of Magnesia 30 Ml Oral.Susp) 30 ml PO DAILY PRN PRN Reason: Constipation Melatonin (Melatonin 3 Mg Tablet) 3 mg PO BEDTIME [facility] Last Admin: 09/06/22 21:00 Dose: 3 mg Mirtazapine (Mirtazapine 15 Mg Tablet) 45 mg PO BEDTIME [facility] Last Admin: 09/06/22 21:00 Dose: 45 mg Nicotine Polacrilex (Nicotine Polacrilex 2 Mg Gum) 4 mg BUCCAL Q2H PRN PRN Reason: Nicotine Cravings Olanzapine (Olanzapine 5 Mg Tablet) 5 mg PO TID PRN PRN Reason: agitation Olanzapine (Olanzapine 10 Mg Tablet) 30 mg PO BEDTIME [facility] Last Admin: 09/06/22 20:59 Dose: 30 mg Tizanidine HCl (Tizanidine Hcl 4 Mg Tablet) 16 mg PO BEDTIME [facility] Last Admin: 09/06/22 20:58 Dose: 16 mg Trazodone HCl (Trazodone Hcl 100 Mg Tablet) 200 mg PO BEDTIME [facility] Last Admin: 09/06/22 20:58 Dose: 200 mg Allergies Allergies Allergy/AdvReac Type Severity Reaction Status Date / Time duloxetine [From CYMBALTA] Allergy Unknown Hallucinati Verified 07/30/22 10:14 ons morphine [MORPHINE] Allergy Unknown HALLUCINATI Verified 07/30/22 10:14 ONS Phenylpiperazine AdvReac Severe hallucinati Verified 07/30/22 10:14 Antidepressant ons Tetracyclic Antidepressants AdvReac Severe hallucinati Verified 07/30/22 10:14 ons fentanyl [FENTANYL] AdvReac Unknown Hallucinati Verified 07/30/22 10:14 ons Assessment & Plan Assessment & Plan (1) Bipolar disorder: Qualifiers: Current bipolar episode type: hypomanic Status: Acute Code(s): F31.9 - Bipolar disorder, unspecified Plan Patient is a 52 year-old woman with hx of bipolar, history of overusing opioid pain medications and benzodiazepine abuse who, recently discharged from [facility] July 20, who presents for disorganized behavior at her Pain Clinic. Patient is a limited historian mostly answering with yes and no questions. Patient is not manic; denies depression; denies AVH however may have negative symptoms. Patient says she has no recollection of acting in a disorganized way at the pain clinic; in fact she has no recollection of what happened at at all at the clinic, including whether not she got her injection. Patient says she has been taking her medications regularly and denies overtaking them. Initially on admission lower dose is unsure of adherence however will raise back to home dose regimen. Will add Thorazine p.r.n. for sleep as patient said she has not been able to sleep for 2 weeks. Plan: CV Q 15 minutes checks add Thorazine p.r.n. for insomnia Continue home medication regimen Diazepam 10 mg PO BEDTIME [facility] Divalproex Sodium (Divalproex Sodium Er 500 Mg Tab.Er.24h)? 1,000 mg PO BEDTIME [facility] Mirtazapine? 45 mg PO BEDTIME [facility] Olanzapine 30 mg PO BEDTIME [facility] Trazodone 200mg qhs Will defer to primary team whether to start: -Diazepam 5 mg PO DAILY [facility] -Zolpidem 10mg qhs (pt now on Trazodone 200mg) 09/07: check VPA level, begin valium taper over weekend. do not restart ambien or morning valium. Reason for contiued inpatient stay Substantial Risk for: harm to self and inability to function Time Spent With Patient Time: Total time managing care of this patient today __20__ minutes.
[2022-09-07 20:32] LABS: Ammonia 41 umol/L (13-55)
[2022-09-07 20:45] LABS: Valproate 50.4 mcg/mL (50.0-100.0)
[2022-09-07 21:28] VITALS: BP 107/56; PULSE 66; RESP 16; O2SAT 97
[2022-09-07] MEDS: Mirtazapine 15 MG TABLET 45 MG PO (21:32)
[2022-09-07] MEDS: Divalproex Sodium ER 500 MG TAB.ER.24H 1000 MG PO (21:33)
[2022-09-07] MEDS: traZODone HCL 100 MG TABLET 200 MG PO (21:33)
[2022-09-07] MEDS: diazePAM 5 MG TABLET 10 MG PO (21:33)
[2022-09-07] MEDS: OLANZapine 10 MG TABLET 30 MG PO (21:33)
[2022-09-07] MEDS: TiZANidine HCL 4 MG TABLET 16 MG PO (21:33)
[2022-09-07] MEDS: Melatonin 3 MG TABLET PO (21:33)
[2022-09-08 08:15] VITALS: BP 99/53; PULSE 60; RESP 18; TEMP 36.5; O2SAT 98
[2022-09-08] MEDS: Benztropine Mesylate 1 MG TABLET PO ×2 (09:27→20:25)
--- NOTE | 2022-09-08 12:52 | HO.PSYCHPN ---
Subjective Subjective Date of Service: 09/08/22 Reason For Visit: disorganized Interim History: Discussed with team, pt is on a valium taper, TDN up 09/12/22. Spoke with pt, she is disoriented at times, i.e. thought yao was on Sat, went into wrong pt room. Spoke with pt, says she wants to go home, upset with being in hospital for yao as she has an 11 y.o. boy at home, says she just came to the hospital for a pain clinic shot, i dont even know if i got my shot, confused. Found laying down in bed, difficult to engage, somnolent, sleeping most of the day. Mental Status Exam Mental Status Exam Narrative: Pt is oriented; behavior is superficially cooperative, calm; patient is not in distress; dressed in hospital attire with unkempt hair but adequate hygiene; affect hypo-intense, non-labile; eye contact bit of fixed stare; Speech is sparse, but normal rate, decr loudness and tone; psychomotor retardation present; thought process is goal directed; Thought content is linear and logical but superficial;? denies any SI/HI. Denies AVH; no obvious evidence of perceptual disturbance. ?Patients insight and judgment are impaired. Diagnostics Vital Signs (24Hr): Vital Signs - 24 hr 09/07/22 21:28 09/08/22 08:15 Temperature 97.7 F Pulse Rate 66 60 Respiratory Rate 16 18 Blood Pressure 107/56 L 99/53 L Pulse Oximetry 97 98 Oxygen Delivery Method Room Air Room Air BMI result Body Mass Index 19.2 Labs Results: 09/05/22 10:09 09/05/22 10:09 Labs: Laboratory Results - last 48 hr 09/07/22 09/07/22 20:07 20:07 Ammonia 41 Valproic Acid 50.4 Medications Medications Current Medications Acetaminophen (Acetaminophen 325 Mg Tablet) 650 mg PO Q6H PRN PRN Reason: Headache/Pain Mild Scale (1-3) Al Hydroxide/Mg Hydroxide (Magnesium Hydrox/Alum Hydrox 30 Ml Oral.Susp) 30 ml PO Q6H PRN PRN Reason: Heartburn/Nausea Benztropine Mesylate (Benztropine Mesylate 1 Mg Tablet) 1 mg PO BID [facility] Last Admin: 09/08/22 09:27 Dose: 1 mg Diazepam (Diazepam 5 Mg Tablet) 10 mg PO BEDTIME [facility] Stop: 09/08/22 21:01 Last Admin: 09/07/22 21:33 Dose: 10 mg Diazepam (Diazepam 5 Mg Tablet) 5 mg PO BEDTIME [facility] Stop: 09/11/22 21:01 Divalproex Sodium (Divalproex Sodium Er 500 Mg Tab.Er.24h) 1,000 mg PO BEDTIME [facility] Last Admin: 09/07/22 21:33 Dose: 1,000 mg Hydroxyzine HCl (Hydroxyzine Hcl 25 Mg Tablet) 25 mg PO Q6H PRN PRN Reason: Anxiety Last Admin: 09/06/22 21:00 Dose: 25 mg Magnesium Hydroxide (Milk Of Magnesia 30 Ml Oral.Susp) 30 ml PO DAILY PRN PRN Reason: Constipation Melatonin (Melatonin 3 Mg Tablet) 3 mg PO BEDTIME [facility] Last Admin: 09/07/22 21:33 Dose: 3 mg Mirtazapine (Mirtazapine 15 Mg Tablet) 45 mg PO BEDTIME [facility] Last Admin: 09/07/22 21:32 Dose: 45 mg Nicotine Polacrilex (Nicotine Polacrilex 2 Mg Gum) 4 mg BUCCAL Q2H PRN PRN Reason: Nicotine Cravings Olanzapine (Olanzapine 5 Mg Tablet) 5 mg PO TID PRN PRN Reason: agitation Olanzapine (Olanzapine 10 Mg Tablet) 30 mg PO BEDTIME [facility] Last Admin: 09/07/22 21:33 Dose: 30 mg Tizanidine HCl (Tizanidine Hcl 4 Mg Tablet) 16 mg PO BEDTIME [facility] Last Admin: 09/07/22 21:33 Dose: 16 mg Trazodone HCl (Trazodone Hcl 100 Mg Tablet) 200 mg PO BEDTIME [facility] Last Admin: 09/07/22 21:33 Dose: 200 mg Allergies Allergies Allergy/AdvReac Type Severity Reaction Status Date / Time duloxetine [From CYMBALTA] Allergy Unknown Hallucinati Verified 07/30/22 10:14 ons morphine [MORPHINE] Allergy Unknown HALLUCINATI Verified 07/30/22 10:14 ONS Phenylpiperazine AdvReac Severe hallucinati Verified 07/30/22 10:14 Antidepressant ons Tetracyclic Antidepressants AdvReac Severe hallucinati Verified 07/30/22 10:14 ons fentanyl [FENTANYL] AdvReac Unknown Hallucinati Verified 07/30/22 10:14 ons Assessment & Plan Assessment & Plan (1) Bipolar disorder: Qualifiers: Current bipolar episode type: hypomanic Status: Acute Code(s): F31.9 - Bipolar disorder, unspecified Plan Patient is a 52 year-old woman with hx of bipolar, history of overusing opioid pain medications and benzodiazepine abuse who, recently discharged from [facility] July 20, who presents for disorganized behavior at her Pain Clinic. Patient is a limited historian mostly answering with yes and no questions. Patient is not manic; denies depression; denies AVH however may have negative symptoms. Patient says she has no recollection of acting in a disorganized way at the pain clinic; in fact she has no recollection of what happened at at all at the clinic, including whether not she got her injection. Patient says she has been taking her medications regularly and denies overtaking them. Initially on admission lower dose is unsure of adherence however will raise back to home dose regimen. Will add Thorazine p.r.n. for sleep as patient said she has not been able to sleep for 2 weeks. Plan: CV Q 15 minutes checks add Thorazine p.r.n. for insomnia Continue home medication regimen Diazepam 10 mg PO BEDTIME [facility] Divalproex Sodium (Divalproex Sodium Er 500 Mg Tab.Er.24h)? 1,000 mg PO BEDTIME [facility] Mirtazapine? 45 mg PO BEDTIME [facility] Olanzapine 30 mg PO BEDTIME [facility] Trazodone 200mg qhs Will defer to primary team whether to start: -Diazepam 5 mg PO DAILY [facility] -Zolpidem 10mg qhs (pt now on Trazodone 200mg) 09/07: check VPA level, begin valium taper over weekend. do not restart ambien or morning valium. 09/08: No med changes, continue valium taper Patient educated on: therapeutic strategies Reason for contiued inpatient stay Substantial Risk for: inability to function, rapid decompensation and med/psych decompensation Time Spent With Patient Time: Total time managing care of this patient today ____ minutes.
[2022-09-08 20:22] VITALS: BP 133/63; PULSE 74; RESP 18; TEMP 36.7; O2SAT 100
[2022-09-08] MEDS: TiZANidine HCL 4 MG TABLET 16 MG PO (20:23)
[2022-09-08] MEDS: OLANZapine 10 MG TABLET 30 MG PO (20:23)
[2022-09-08] MEDS: Divalproex Sodium ER 500 MG TAB.ER.24H 1000 MG PO (20:24)
[2022-09-08] MEDS: Mirtazapine 15 MG TABLET 45 MG PO (20:24)
[2022-09-08] MEDS: Melatonin 3 MG TABLET PO (20:25)
[2022-09-08] MEDS: diazePAM 5 MG TABLET 10 MG PO (20:25)
[2022-09-08] MEDS: traZODone HCL 100 MG TABLET 200 MG PO (20:25)
[2022-09-09 08:35] VITALS: BP 108/56; PULSE 60; RESP 20; TEMP 36.6; O2SAT 97
[2022-09-09] MEDS: Ibuprofen 600 MG TABLET PO (08:37)
[2022-09-09] MEDS: Benztropine Mesylate 1 MG TABLET PO ×2 (08:38→20:37)
--- NOTE | 2022-09-09 10:56 | HO.PSYCHPN ---
Subjective Subjective Date of Service: 09/09/22 Reason For Visit: disorganized Interim History: Discussed with team. Pt has remained in bed most of morning, somewhat disoriented but re-oriented with prompting. I spoke with pt, says she feels guilty, knows that she went to the pain clinic and I wound up here but says she does not remember leaving. She again says she wants to go home. She denies abusing her meds at home, its not like any of these drugs were new. Mental Status Exam Mental Status Exam Narrative: Pt is oriented; behavior is superficially cooperative, calm; patient is not in distress; dressed in hospital attire with unkempt hair but adequate hygiene; affect hypo-intense, non-labile; eye contact bit of fixed stare; Speech is sparse, but normal rate, decr loudness and tone; psychomotor retardation present; thought process is goal directed; Thought content is linear and logical but superficial;? denies any SI/HI. Denies AVH; no obvious evidence of perceptual disturbance. ?Patients insight and judgment are impaired. Diagnostics Vital Signs (24Hr): Vital Signs - 24 hr 09/08/22 20:22 09/09/22 08:35 Temperature 98.1 F 97.9 F Pulse Rate 74 60 Respiratory Rate 18 20 Blood Pressure 133/63 108/56 L Pulse Oximetry 100 97 Oxygen Delivery Method Room Air Room Air BMI result Body Mass Index 19.2 Labs Results: 09/05/22 10:09 09/05/22 10:09 Labs: Laboratory Results - last 48 hr 09/07/22 09/07/22 20:07 20:07 Ammonia 41 Valproic Acid 50.4 Medications Medications Current Medications Acetaminophen (Acetaminophen 325 Mg Tablet) 650 mg PO Q6H PRN PRN Reason: Headache/Pain Mild Scale (1-3) Al Hydroxide/Mg Hydroxide (Magnesium Hydrox/Alum Hydrox 30 Ml Oral.Susp) 30 ml PO Q6H PRN PRN Reason: Heartburn/Nausea Benztropine Mesylate (Benztropine Mesylate 1 Mg Tablet) 1 mg PO BID [facility] Last Admin: 09/09/22 08:38 Dose: 1 mg Diazepam (Diazepam 5 Mg Tablet) 5 mg PO BEDTIME [facility] Stop: 09/11/22 21:01 Divalproex Sodium (Divalproex Sodium Er 500 Mg Tab.Er.24h) 1,000 mg PO BEDTIME [facility] Last Admin: 09/08/22 20:24 Dose: 1,000 mg Hydroxyzine HCl (Hydroxyzine Hcl 25 Mg Tablet) 25 mg PO Q6H PRN PRN Reason: Anxiety Last Admin: 09/06/22 21:00 Dose: 25 mg Ibuprofen (Ibuprofen 600 Mg Tablet) 600 mg PO Q6H PRN PRN Reason: Pain, Moderate (Pain Scale 4-6 Last Admin: 09/09/22 08:37 Dose: 600 mg Magnesium Hydroxide (Milk Of Magnesia 30 Ml Oral.Susp) 30 ml PO DAILY PRN PRN Reason: Constipation Melatonin (Melatonin 3 Mg Tablet) 3 mg PO BEDTIME [facility] Last Admin: 09/08/22 20:25 Dose: 3 mg Mirtazapine (Mirtazapine 15 Mg Tablet) 45 mg PO BEDTIME [facility] Last Admin: 09/08/22 20:24 Dose: 45 mg Nicotine Polacrilex (Nicotine Polacrilex 2 Mg Gum) 4 mg BUCCAL Q2H PRN PRN Reason: Nicotine Cravings Olanzapine (Olanzapine 5 Mg Tablet) 5 mg PO TID PRN PRN Reason: agitation Olanzapine (Olanzapine 10 Mg Tablet) 30 mg PO BEDTIME [facility] Last Admin: 09/08/22 20:23 Dose: 30 mg Tizanidine HCl (Tizanidine Hcl 4 Mg Tablet) 16 mg PO BEDTIME [facility] Last Admin: 09/08/22 20:23 Dose: 16 mg Trazodone HCl (Trazodone Hcl 100 Mg Tablet) 200 mg PO BEDTIME [facility] Last Admin: 09/08/22 20:25 Dose: 200 mg Allergies Allergies Allergy/AdvReac Type Severity Reaction Status Date / Time duloxetine [From CYMBALTA] Allergy Unknown Hallucinati Verified 07/30/22 10:14 ons morphine [MORPHINE] Allergy Unknown HALLUCINATI Verified 07/30/22 10:14 ONS Phenylpiperazine AdvReac Severe hallucinati Verified 07/30/22 10:14 Antidepressant ons Tetracyclic Antidepressants AdvReac Severe hallucinati Verified 07/30/22 10:14 ons fentanyl [FENTANYL] AdvReac Unknown Hallucinati Verified 07/30/22 10:14 ons Assessment & Plan Assessment & Plan (1) Bipolar disorder: Qualifiers: Current bipolar episode type: hypomanic Status: Acute Code(s): F31.9 - Bipolar disorder, unspecified Plan Patient is a 52 year-old woman with hx of bipolar, history of overusing opioid pain medications and benzodiazepine abuse who, recently discharged from [facility] July 20, who presents for disorganized behavior at her Pain Clinic. Patient is a limited historian mostly answering with yes and no questions. Patient is not manic; denies depression; denies AVH however may have negative symptoms. Patient says she has no recollection of acting in a disorganized way at the pain clinic; in fact she has no recollection of what happened at at all at the clinic, including whether not she got her injection. Patient says she has been taking her medications regularly and denies overtaking them. Initially on admission lower dose is unsure of adherence however will raise back to home dose regimen. Will add Thorazine p.r.n. for sleep as patient said she has not been able to sleep for 2 weeks. Plan: CV Q 15 minutes checks add Thorazine p.r.n. for insomnia Continue home medication regimen Diazepam 10 mg PO BEDTIME [facility] Divalproex Sodium (Divalproex Sodium Er 500 Mg Tab.Er.24h)? 1,000 mg PO BEDTIME [facility] Mirtazapine? 45 mg PO BEDTIME [facility] Olanzapine 30 mg PO BEDTIME [facility] Trazodone 200mg qhs Will defer to primary team whether to start: -Diazepam 5 mg PO DAILY [facility] -Zolpidem 10mg qhs (pt now on Trazodone 200mg) 09/07: check VPA level, begin valium taper over weekend. do not restart ambien or morning valium. 09/08: No med changes, continue valium taper 09/09: continue valium taper Patient educated on: therapeutic strategies Reason for contiued inpatient stay Substantial Risk for: inability to function, rapid decompensation and med/psych decompensation Time Spent With Patient Time: Total time managing care of this patient today ____ minutes.
[2022-09-09] MEDS: Simethicone 80 MG TAB.CHEW 160 MG PO ×2 (11:54→17:03)
[2022-09-09 14:46] LABS: Appearance Urine Cloudy; Color Urine Yellow; Glucose Urine UA Negative (Negative); Leukocyte Esterase Urine Small (1+) (Negative); Nitrite Urine Negative (Negative); PH 6.5 (5.0-9.0); Specific Gravity - Urine 1.025 (1.005-1.025); UMIC TRIGGER UACC YES; Urine Blood Negative (Negative); Urine Ketones Trace mg/dL (Negative); Urine Protein Negative (Neg-Trace)
[2022-09-09 14:48] LABS: Bacteria Urine 2+ (None Seen); Hyaline Casts Urine 0-2 /LPF (0-2); RBC Urine 0-2 /HPF (0-2); Squamous Epithelial Cell Urine >20 /HPF (0-2); UACC Culture Trigger YES
[2022-09-09 20:22] VITALS: BP 114/73; PULSE 77; RESP 16; TEMP 36.6; O2SAT 100
[2022-09-09] MEDS: TiZANidine HCL 4 MG TABLET 16 MG PO (20:36)
[2022-09-09] MEDS: Divalproex Sodium ER 500 MG TAB.ER.24H 1000 MG PO (20:36)
[2022-09-09] MEDS: Mirtazapine 15 MG TABLET 45 MG PO (20:36)
[2022-09-09] MEDS: diazePAM 5 MG TABLET PO (20:37)
[2022-09-09] MEDS: traZODone HCL 100 MG TABLET 200 MG PO (20:37)
[2022-09-10 09:40] VITALS: BP 132/58; PULSE 62; RESP 18; TEMP 36.2; O2SAT 99
[2022-09-10] MEDS: Simethicone 80 MG TAB.CHEW 160 MG PO ×3 (09:41→19:07)
[2022-09-10] MEDS: Benztropine Mesylate 1 MG TABLET PO ×2 (09:41→20:29)
--- NOTE | 2022-09-10 13:15 | HO.PSYCHPN ---
Subjective Subjective Date of Service: 09/10/22 Reason For Visit: disorganized Interim History: Discussed with team, pt is disengaged and remains in bed most of the day. Spoke with pt, she is awake but laying down in bed, says I gotta get out of here, feels guilty about not being home with her son. Mental Status Exam Mental Status Exam Narrative: Pt is oriented; behavior is superficially cooperative, calm; patient is not in distress; dressed in hospital attire with unkempt hair but adequate hygiene; affect hypo-intense, non-labile; eye contact bit of fixed stare; Speech is sparse, but normal rate, decr loudness and tone; psychomotor retardation present; thought process is goal directed; Thought content is linear and logical but superficial;? denies any SI/HI. Denies AVH; no obvious evidence of perceptual disturbance. ?Patients insight and judgment are impaired. Diagnostics Vital Signs (24Hr): Vital Signs - 24 hr 09/09/22 20:22 09/10/22 09:40 Temperature 97.8 F 97.1 F Pulse Rate 77 62 Respiratory Rate 16 18 Blood Pressure 114/73 132/58 L Pulse Oximetry 100 99 Oxygen Delivery Method Room Air Room Air BMI result Body Mass Index 19.2 Labs Results: 09/05/22 10:09 09/05/22 10:09 Labs: Laboratory Results - last 48 hr 09/09/22 14:30 Urine Color Yellow Urine Appearance Cloudy Urine pH 6.5 Ur Specific [place] 1.025 Urine Protein Negative Urine Glucose (UA) Negative Urine Ketones Trace Urine Blood Negative Urine Nitrite Negative Ur Leukocyte Esterase Small (1+) H Urine RBC 0-2 Urine WBC 6-10 H Ur Squamous Epith Cells >20 Urine Bacteria 2+ Hyaline Casts 0-2 Medications Medications Current Medications Acetaminophen (Acetaminophen 325 Mg Tablet) 650 mg PO Q6H PRN PRN Reason: Headache/Pain Mild Scale (1-3) Al Hydroxide/Mg Hydroxide (Magnesium Hydrox/Alum Hydrox 30 Ml Oral.Susp) 30 ml PO Q6H PRN PRN Reason: Heartburn/Nausea Benztropine Mesylate (Benztropine Mesylate 1 Mg Tablet) 1 mg PO BID [facility] Last Admin: 09/10/22 09:41 Dose: 1 mg Diazepam (Diazepam 5 Mg Tablet) 5 mg PO BEDTIME [facility] Stop: 09/11/22 21:01 Last Admin: 09/09/22 20:37 Dose: 5 mg Divalproex Sodium (Divalproex Sodium Er 500 Mg Tab.Er.24h) 1,000 mg PO BEDTIME [facility] Last Admin: 09/09/22 20:36 Dose: 1,000 mg Hydroxyzine HCl (Hydroxyzine Hcl 25 Mg Tablet) 25 mg PO Q6H PRN PRN Reason: Anxiety Last Admin: 09/06/22 21:00 Dose: 25 mg Ibuprofen (Ibuprofen 600 Mg Tablet) 600 mg PO Q6H PRN PRN Reason: Pain, Moderate (Pain Scale 4-6 Last Admin: 09/09/22 08:37 Dose: 600 mg Magnesium Hydroxide (Milk Of Magnesia 30 Ml Oral.Susp) 30 ml PO DAILY PRN PRN Reason: Constipation Melatonin (Melatonin 3 Mg Tablet) 3 mg PO BEDTIME [facility] Last Admin: 09/09/22 20:40 Dose: Not Given Mirtazapine (Mirtazapine 15 Mg Tablet) 45 mg PO BEDTIME [facility] Last Admin: 09/09/22 20:36 Dose: 45 mg Nicotine Polacrilex (Nicotine Polacrilex 2 Mg Gum) 4 mg BUCCAL Q2H PRN PRN Reason: Nicotine Cravings Olanzapine (Olanzapine 5 Mg Tablet) 5 mg PO TID PRN PRN Reason: agitation Olanzapine (Olanzapine 10 Mg Tablet) 30 mg PO BEDTIME [facility] Last Admin: 09/09/22 20:40 Dose: Not Given Simethicone (Simethicone 80 Mg Tab.Chew) 160 mg PO TIDWM [facility] Last Admin: 09/10/22 09:41 Dose: 160 mg Tizanidine HCl (Tizanidine Hcl 4 Mg Tablet) 16 mg PO BEDTIME [facility] Last Admin: 09/09/22 20:36 Dose: 16 mg Trazodone HCl (Trazodone Hcl 100 Mg Tablet) 200 mg PO BEDTIME [facility] Last Admin: 09/09/22 20:37 Dose: 200 mg Allergies Allergies Allergy/AdvReac Type Severity Reaction Status Date / Time duloxetine [From CYMBALTA] Allergy Unknown Hallucinati Verified 07/30/22 10:14 ons morphine [MORPHINE] Allergy Unknown HALLUCINATI Verified 07/30/22 10:14 ONS Phenylpiperazine AdvReac Severe hallucinati Verified 07/30/22 10:14 Antidepressant ons Tetracyclic Antidepressants AdvReac Severe hallucinati Verified 07/30/22 10:14 ons fentanyl [FENTANYL] AdvReac Unknown Hallucinati Verified 07/30/22 10:14 ons Assessment & Plan Assessment & Plan (1) Bipolar disorder: Qualifiers: Current bipolar episode type: hypomanic Status: Acute Code(s): F31.9 - Bipolar disorder, unspecified Plan Patient is a 52 year-old woman with hx of bipolar, history of overusing opioid pain medications and benzodiazepine abuse who, recently discharged from [facility] July 20, who presents for disorganized behavior at her Pain Clinic. Patient is a limited historian mostly answering with yes and no questions. Patient is not manic; denies depression; denies AVH however may have negative symptoms. Patient says she has no recollection of acting in a disorganized way at the pain clinic; in fact she has no recollection of what happened at at all at the clinic, including whether not she got her injection. Patient says she has been taking her medications regularly and denies overtaking them. Initially on admission lower dose is unsure of adherence however will raise back to home dose regimen. Will add Thorazine p.r.n. for sleep as patient said she has not been able to sleep for 2 weeks. Plan: CV Q 15 minutes checks add Thorazine p.r.n. for insomnia Continue home medication regimen Diazepam 10 mg PO BEDTIME [facility] Divalproex Sodium (Divalproex Sodium Er 500 Mg Tab.Er.24h)? 1,000 mg PO BEDTIME [facility] Mirtazapine? 45 mg PO BEDTIME [facility] Olanzapine 30 mg PO BEDTIME [facility] Trazodone 200mg qhs Will defer to primary team whether to start: -Diazepam 5 mg PO DAILY [facility] -Zolpidem 10mg qhs (pt now on Trazodone 200mg) 09/07: check VPA level, begin valium taper over weekend. do not restart ambien or morning valium. 09/08: No med changes, continue valium taper 09/09: No med changes, continue valium taper 09/10: No med changes Patient educated on: therapeutic strategies Reason for contiued inpatient stay Substantial Risk for: inability to function, rapid decompensation and med/psych decompensation Time Spent With Patient Time: Total time managing care of this patient today ____ minutes.
--- NOTE | 2022-09-10 16:21 | PC.NURSE ---
Patient declined Fresh Air Break.
[2022-09-10 20:28] VITALS: BP 98/51; PULSE 78; RESP 18; TEMP 36.3; O2SAT 97
[2022-09-10] MEDS: Mirtazapine 15 MG TABLET 45 MG PO (20:29)
[2022-09-10] MEDS: Melatonin 3 MG TABLET PO (20:29)
[2022-09-10] MEDS: diazePAM 5 MG TABLET PO (20:30)
[2022-09-10] MEDS: Divalproex Sodium ER 500 MG TAB.ER.24H 1000 MG PO (20:30)
[2022-09-10] MEDS: OLANZapine 10 MG TABLET 30 MG PO (20:30)
[2022-09-10] MEDS: TiZANidine HCL 4 MG TABLET 16 MG PO (20:30)
[2022-09-10] MEDS: traZODone HCL 100 MG TABLET 200 MG PO (20:30)
[2022-09-11 09:17] VITALS: PULSE 89; RESP 18; TEMP 36.6; O2SAT 99
[2022-09-11] MEDS: Benztropine Mesylate 1 MG TABLET PO ×2 (09:20→20:21)
[2022-09-11] MEDS: Simethicone 80 MG TAB.CHEW 160 MG PO ×3 (09:20→17:59)
--- NOTE | 2022-09-11 09:42 | P.PNPSI_ITS ---
Subjective Subjective Reason For Visit: disorganized Diagnostics Vital Signs (24Hr): Vital Signs - 24 hr 09/10/22 20:28 09/11/22 09:17 Temperature 97.4 F 97.9 F Pulse Rate 78 89 Respiratory Rate 18 18 Blood Pressure 98/51 L Pulse Oximetry 97 99 Oxygen Delivery Method Room Air Room Air BMI result Body Mass Index 19.2 Labs Results: 09/05/22 10:09 09/05/22 10:09 Labs: Laboratory Results - last 48 hr 09/09/22 14:30 Urine Color Yellow Urine Appearance Cloudy Urine pH 6.5 Ur Specific [place] 1.025 Urine Protein Negative Urine Glucose (UA) Negative Urine Ketones Trace Urine Blood Negative Urine Nitrite Negative Ur Leukocyte Esterase Small (1+) H Urine RBC 0-2 Urine WBC 6-10 H Ur Squamous Epith Cells >20 Urine Bacteria 2+ Hyaline Casts 0-2 Medications Medications Current Medications Acetaminophen (Acetaminophen 325 Mg Tablet) 650 mg PO Q6H PRN PRN Reason: Headache/Pain Mild Scale (1-3) Al Hydroxide/Mg Hydroxide (Magnesium Hydrox/Alum Hydrox 30 Ml Oral.Susp) 30 ml PO Q6H PRN PRN Reason: Heartburn/Nausea Benztropine Mesylate (Benztropine Mesylate 1 Mg Tablet) 1 mg PO BID [facility] Last Admin: 09/11/22 09:20 Dose: 1 mg Diazepam (Diazepam 5 Mg Tablet) 5 mg PO BEDTIME [facility] Stop: 09/11/22 21:01 Last Admin: 09/10/22 20:30 Dose: 5 mg Divalproex Sodium (Divalproex Sodium Er 500 Mg Tab.Er.24h) 1,000 mg PO BEDTIME [facility] Last Admin: 09/10/22 20:30 Dose: 1,000 mg Hydroxyzine HCl (Hydroxyzine Hcl 25 Mg Tablet) 25 mg PO Q6H PRN PRN Reason: Anxiety Last Admin: 09/06/22 21:00 Dose: 25 mg Ibuprofen (Ibuprofen 600 Mg Tablet) 600 mg PO Q6H PRN PRN Reason: Pain, Moderate (Pain Scale 4-6 Last Admin: 09/09/22 08:37 Dose: 600 mg Magnesium Hydroxide (Milk Of Magnesia 30 Ml Oral.Susp) 30 ml PO DAILY PRN PRN Reason: Constipation Melatonin (Melatonin 3 Mg Tablet) 3 mg PO BEDTIME [facility] Last Admin: 09/10/22 20:29 Dose: 3 mg Mirtazapine (Mirtazapine 15 Mg Tablet) 45 mg PO BEDTIME [facility] Last Admin: 09/10/22 20:29 Dose: 45 mg Nicotine Polacrilex (Nicotine Polacrilex 2 Mg Gum) 4 mg BUCCAL Q2H PRN PRN Reason: Nicotine Cravings Olanzapine (Olanzapine 5 Mg Tablet) 5 mg PO TID PRN PRN Reason: agitation Olanzapine (Olanzapine 10 Mg Tablet) 30 mg PO BEDTIME [facility] Last Admin: 09/10/22 20:30 Dose: 30 mg Simethicone (Simethicone 80 Mg Tab.Chew) 160 mg PO TIDWM [facility] Last Admin: 09/11/22 09:20 Dose: 160 mg Tizanidine HCl (Tizanidine Hcl 4 Mg Tablet) 16 mg PO BEDTIME [facility] Last Admin: 09/10/22 20:30 Dose: 16 mg Trazodone HCl (Trazodone Hcl 100 Mg Tablet) 200 mg PO BEDTIME [facility] Last Admin: 09/10/22 20:30 Dose: 200 mg Allergies Allergies Allergy/AdvReac Type Severity Reaction Status Date / Time duloxetine [From CYMBALTA] Allergy Unknown Hallucinati Verified 07/30/22 10:14 ons morphine [MORPHINE] Allergy Unknown HALLUCINATI Verified 07/30/22 10:14 ONS Phenylpiperazine AdvReac Severe hallucinati Verified 07/30/22 10:14 Antidepressant ons Tetracyclic Antidepressants AdvReac Severe hallucinati Verified 07/30/22 10:14 ons fentanyl [FENTANYL] AdvReac Unknown Hallucinati Verified 07/30/22 10:14 ons Assessment & Plan Assessment & Plan (1) Bipolar disorder: Qualifiers: Current bipolar episode type: hypomanic Status: Acute Code(s): F31.9 - Bipolar disorder, unspecified Plan Patient is a 52 year-old woman with hx of bipolar, history of overusing opioid pain medications and benzodiazepine abuse who, recently discharged from [facility] July 20, who presents for disorganized behavior at her Pain Clinic. Patient is a limited historian mostly answering with yes and no questions. Patient is not manic; denies depression; denies AVH however may have negative symptoms. Patient says she has no recollection of acting in a disorganized way at the pain clinic; in fact she has no recollection of what happened at at all at the clinic, including whether not she got her injection. Patient says she has been taking her medications regularly and denies overtaking them. Initially on admission lower dose is unsure of adherence however will raise back to home dose regimen. Will add Thorazine p.r.n. for sleep as patient said she has not been able to sleep for 2 weeks. Plan: CV Q 15 minutes checks add Thorazine p.r.n. for insomnia Continue home medication regimen Diazepam 10 mg PO BEDTIME [facility] Divalproex Sodium (Divalproex Sodium Er 500 Mg Tab.Er.24h)? 1,000 mg PO BEDTIME [facility] Mirtazapine? 45 mg PO BEDTIME [facility] Olanzapine 30 mg PO BEDTIME [facility] Trazodone 200mg qhs Will defer to primary team whether to start: -Diazepam 5 mg PO DAILY [facility] -Zolpidem 10mg qhs (pt now on Trazodone 200mg) 09/07: check VPA level, begin valium taper over weekend. do not restart ambien or morning valium. 09/08: No med changes, continue valium taper 09/09: No med changes, continue valium taper 09/10: No med changes Time Spent With Patient Time: Total time managing care of this patient today ____ minutes.
[2022-09-11] MEDS: hydrOXYzine HCL 25 MG TABLET PO (17:00)
[2022-09-11] MEDS: Ibuprofen 600 MG TABLET PO (17:00)
[2022-09-11] MEDS: OLANZapine 5 MG TABLET PO (17:00)
--- NOTE | 2022-09-11 17:27 | P.PNPSI_ITS ---
Subjective Subjective Date of Service: 09/11/22 Reason For Visit: disorganized Interim History: calm, cooperative. appears oriented and alert. initially states she is sleeping well here, then later asks about replacing the valium and ambien from which she is being weaned bcse she is not sleeping well. she is informed she is taking olanzapine and trazodone, both of which are quite sedating and which should help. discuss 3-day notice, she believes she should discharge today, is corrected 3-day notice matures tomorrow and valium taper is ongoing. will plan to discharge tomorrow. Mental Status Exam Mental Status Exam Narrative: Pt is oriented; behavior is superficially cooperative, calm; patient is not in distress; dressed in hospital attire with unkempt hair but adequate hygiene; affect hypo-intense, non-labile; eye contact WNL; Speech is normal rate, amount, loudness, tone; no PMA/PMR; thought process is goal directed; Thought content is linear and logical but superficial; denies any SI/HI. Denies AVH; no obvious evidence of perceptual disturbance. Patients insight and judgment are impaired. Diagnostics Vital Signs (24Hr): Vital Signs - 24 hr 09/10/22 20:28 09/11/22 09:17 Temperature 97.4 F 97.9 F Pulse Rate 78 89 Respiratory Rate 18 18 Blood Pressure 98/51 L Pulse Oximetry 97 99 Oxygen Delivery Method Room Air Room Air BMI result Body Mass Index 19.2 Labs Results: 09/05/22 10:09 09/05/22 10:09 Medications Medications Current Medications Acetaminophen (Acetaminophen 325 Mg Tablet) 650 mg PO Q6H PRN PRN Reason: Headache/Pain Mild Scale (1-3) Al Hydroxide/Mg Hydroxide (Magnesium Hydrox/Alum Hydrox 30 Ml Oral.Susp) 30 ml PO Q6H PRN PRN Reason: Heartburn/Nausea Benztropine Mesylate (Benztropine Mesylate 1 Mg Tablet) 1 mg PO BID [facility] Last Admin: 09/11/22 09:20 Dose: 1 mg Diazepam (Diazepam 5 Mg Tablet) 5 mg PO BEDTIME [facility] Stop: 09/11/22 21:01 Last Admin: 09/10/22 20:30 Dose: 5 mg Divalproex Sodium (Divalproex Sodium Er 500 Mg Tab.Er.24h) 1,000 mg PO BEDTIME [facility] Last Admin: 09/10/22 20:30 Dose: 1,000 mg Hydroxyzine HCl (Hydroxyzine Hcl 25 Mg Tablet) 25 mg PO Q6H PRN PRN Reason: Anxiety Last Admin: 09/11/22 17:00 Dose: 25 mg Ibuprofen (Ibuprofen 600 Mg Tablet) 600 mg PO Q6H PRN PRN Reason: Pain, Moderate (Pain Scale 4-6 Last Admin: 09/11/22 17:00 Dose: 600 mg Magnesium Hydroxide (Milk Of Magnesia 30 Ml Oral.Susp) 30 ml PO DAILY PRN PRN Reason: Constipation Melatonin (Melatonin 3 Mg Tablet) 3 mg PO BEDTIME [facility] Last Admin: 09/10/22 20:29 Dose: 3 mg Mirtazapine (Mirtazapine 15 Mg Tablet) 45 mg PO BEDTIME [facility] Last Admin: 09/10/22 20:29 Dose: 45 mg Nicotine Polacrilex (Nicotine Polacrilex 2 Mg Gum) 4 mg BUCCAL Q2H PRN PRN Reason: Nicotine Cravings Olanzapine (Olanzapine 5 Mg Tablet) 5 mg PO TID PRN PRN Reason: agitation Last Admin: 09/11/22 17:00 Dose: 5 mg Olanzapine (Olanzapine 10 Mg Tablet) 30 mg PO BEDTIME [facility] Last Admin: 09/10/22 20:30 Dose: 30 mg Simethicone (Simethicone 80 Mg Tab.Chew) 160 mg PO TIDWM [facility] Last Admin: 09/11/22 13:38 Dose: 160 mg Tizanidine HCl (Tizanidine Hcl 4 Mg Tablet) 16 mg PO BEDTIME [facility] Last Admin: 09/10/22 20:30 Dose: 16 mg Trazodone HCl (Trazodone Hcl 100 Mg Tablet) 200 mg PO BEDTIME [facility] Last Admin: 09/10/22 20:30 Dose: 200 mg Allergies Allergies Allergy/AdvReac Type Severity Reaction Status Date / Time duloxetine [From CYMBALTA] Allergy Unknown Hallucinati Verified 07/30/22 10:14 ons morphine [MORPHINE] Allergy Unknown HALLUCINATI Verified 07/30/22 10:14 ONS Phenylpiperazine AdvReac Severe hallucinati Verified 07/30/22 10:14 Antidepressant ons Tetracyclic Antidepressants AdvReac Severe hallucinati Verified 07/30/22 10:14 ons fentanyl [FENTANYL] AdvReac Unknown Hallucinati Verified 07/30/22 10:14 ons Assessment & Plan Assessment & Plan (1) Bipolar disorder: Qualifiers: Current bipolar episode type: hypomanic Status: Acute Code(s): F31.9 - Bipolar disorder, unspecified Plan Patient is a 52 year-old woman with hx of bipolar, history of overusing opioid pain medications and benzodiazepine abuse who, recently discharged from [facility] July [facility], who presents for disorganized behavior at her Pain Clinic.? Patient is a limited historian mostly answering with yes and no questions. Patient is not manic; denies depression; denies AVH however may have negative symptoms.? Patient says she has no recollection of acting in a disorganized way at the pain clinic; in fact she has no recollection of what happened at all at the clinic, including whether not she got her injection.? Patient says she has b een taking her medications regularly and denies overtaking them. Initially on admission lower dose is unsure of adherence however will raise back to home dose regimen. Plan: 09/06: Continue home medication regimen Diazepam 10 mg PO BEDTIME [facility] Divalproex Sodium (Divalproex Sodium Er 500 Mg Tab.Er.24h)? 1,000 mg PO BEDTIME [facility] Mirtazapine? 45 mg PO BEDTIME [facility] Olanzapine 30 mg PO BEDTIME [facility] Trazodone 200mg qhs Will defer to primary team whether to start: -Diazepam 5 mg PO DAILY [facility] -Zolpidem 10mg qhs (pt now on Trazodone 200mg) 09/07: check VPA level, begin valium taper over weekend.? do not restart ambien or morning valium. 09/08: No med changes, continue valium taper 09/09: No med changes, continue valium taper 09/10: No med changes 09/11: valium taper last dose tonight. discharge tomorrow upon maturation of 3- day notice. Reason for contiued inpatient stay Substantial Risk for: rapid decompensation Time Spent With Patient Time: Total time managing care of this patient today _25___ minutes.
[2022-09-11 20:17] VITALS: BP 104/65; PULSE 74; TEMP 36.7; O2SAT 97
[2022-09-11] MEDS: TiZANidine HCL 4 MG TABLET 16 MG PO (20:18)
[2022-09-11] MEDS: Divalproex Sodium ER 500 MG TAB.ER.24H 1000 MG PO (20:19)
[2022-09-11] MEDS: traZODone HCL 100 MG TABLET 200 MG PO (20:20)
[2022-09-11] MEDS: Mirtazapine 15 MG TABLET 45 MG PO (20:20)
[2022-09-11] MEDS: diazePAM 5 MG TABLET PO (20:20)
[2022-09-11] MEDS: Melatonin 3 MG TABLET PO (20:22)
[2022-09-11] MEDS: OLANZapine 10 MG TABLET 30 MG PO (20:22)
[2022-09-12 07:41] LABS: MANUAL DIFF FLAG NO
[2022-09-12 07:44] LABS: Basophils Absolute Auto 0.1 X10*3/uL (0.0-0.2); Basophils Percent Auto 0.9 % (0-2); Eosinophils Absolute Auto 0.1 X10*3/uL (0.0-0.4); Eosinophils Percent Auto 2.1 % (0-4); Hematocrit 37.8 % (37.0-47.0); Hemoglobin 12.3 g/dl (12.0-16.0); Imm Gran Abs Auto 0.02 X10*3/uL (0.00-0.03); Imm Gran Pct Auto 0.3 % (0.0-0.4); Lymphocytes Absolute Auto 2.6 X10*3/uL (1.2-4.9); Lymphocytes Percent Auto 44.1 % (20-40); Mean Corpuscular HGB Conc 32.5 g/dl (31.0-35.0); Mean Corpuscular Hemoglobin 29.4 pg (27.0-33.0); Mean Corpuscular Volume 90.2 fL (80.0-98.0); Mean Platelet Volume 9.3 fL (9.4-12.3); Monocytes Absolute Auto 0.5 X10*3/uL (0.1-1.2); Monocytes Percent Auto 8.1 % (2-11); Neutrophils Absolute Auto 2.6 x10*3/uL (2.0-8.3); Neutrophils Percent Auto 44.5 % (45-73); Platelet Count 361 X10*3/uL (160-400); Red Blood Count 4.19 X10*6/uL (4.20-5.50); Red Cell Distribution Width 13.2 % (11.0-16.0); White Blood Count 5.8 X10*3/uL (4.8-10.8)
[2022-09-12 08:09] LABS: Alanine Aminotransferase 15 U/L (0-31); Albumin Level 3.7 g/dL (3.5-5.0); Alkaline Phosphatase 55 U/L (39-117); Aspartate Amino Transferase 10 U/L (5-31); Bilirubin Direct < 0.2 mg/dL (0.0-0.5); Bilirubin Total 0.3 mg/dL (0.0-1.0); Total Protein 5.4 g/dL (6.5-8.0)
[2022-09-12 08:31] VITALS: PULSE 78; RESP 20; TEMP 36.6; O2SAT 95
[2022-09-12] MEDS: Benztropine Mesylate 1 MG TABLET PO (08:32)
[2022-09-12] MEDS: Simethicone 80 MG TAB.CHEW 160 MG PO ×2 (08:32→12:30)
--- NOTE | 2022-09-12 10:52 | PM.PSYDC ---
DS: Providers Provider Date of Service: 09/12/22 Date of admission: 09/05/22 22:36 Primary care physician: Unknown Physician DS: Diagnosis Discharge Diagnosis (1) Bipolar disorder: Status: Acute DS: Medications Discharge Medications Home Medications: Home Medications Medication Instructions Recorded Confirmed acetaminophen 325 mg tablet 650 mg PO Q4H PRN Pain 07/14/22 09/05/22 benztropine 1 mg tablet 1 tab PO BID 09/05/22 09/05/22 melatonin 3 mg tablet 1 tab PO BEDTIME 09/05/22 09/05/22 mirtazapine 15 mg tablet 3 tab PO BEDTIME 09/05/22 09/05/22 olanzapine 10 mg tablet 3 tab PO BEDTIME 09/05/22 09/05/22 tizanidine 4 mg tablet 4 tab PO BEDTIME 09/05/22 09/05/22 trazodone 100 mg tablet 2 tab PO BEDTIME 09/05/22 09/05/22 Previous Rx's Medication Instructions Recorded divalproex 500 mg tablet,extended 1,000 mg PO BEDTIME 30 days #60 07/20/22 release 24 hr tabs Mental Status Exam Mental Status Exam Narrative: Pt is oriented; behavior is superficially cooperative, calm; patient is not in distress; dressed in hospital attire with unkempt hair but adequate hygiene; affect hypo-intense, non-labile; eye contact WNL; Speech is normal rate, amount, loudness, tone; no PMA/PMR; thought process is goal directed; Thought content is linear and logical but superficial; denies any SI/HI. Denies AVH; no obvious evidence of perceptual disturbance. Patients insight and judgment are impaired. Data Data Completed and Pending Completed studies during hospitalization [Text1]: 09/05/22 09/05/22 09/07/22 09:39 10:09 20:07 WBC RBC Hgb Hct MCV MCH MCHC RDW Plt Count MPV Immature Gran % (Auto) Neut % (Auto) Lymph % (Auto) [place] % (Auto) Eos % (Auto) Baso % (Auto) Lymph # (Auto) [place] # (Auto) Eos # (Auto) Baso # (Auto) Abs Immat Gran (auto) Absolute Neuts (auto) Absolute Nucleated RBC Nucleated RBC % (auto) Sodium 142 Potassium 3.5 Chloride 107 Carbon Dioxide 24 Anion Gap 15 BUN 4 L Creatinine 0.80 Estim Creat Clear Calc 75.7 Estimated GFR > 60 Random Glucose 103 Calcium 9.3 Magnesium 1.8 Total Bilirubin 0.3 Direct Bilirubin < 0.2 AST 52 H ALT 64 H Alkaline Phosphatase 76 Ammonia 41 Total Protein 6.7 Albumin 4.5 Urine Color Urine Appearance Urine pH Ur Specific [place] Urine Protein Urine Glucose (UA) Urine Ketones Urine Blood Urine Nitrite Ur Leukocyte Esterase Urine RBC Urine WBC Ur Squamous Epith Cells Urine Bacteria Hyaline Casts Valproic Acid Ethyl Alcohol < 10 Influenza Type A (PCR) NEGATIVE Influenza Type B (PCR) NEGATIVE RSV RNA Qual (PCR) NEGATIVE SARS-CoV-2 RNA (RT-PCR) NEGATIVE 09/07/22 09/09/22 09/12/22 20:07 14:30 07:37 WBC 5.8 RBC 4.19 L Hgb 12.3 Hct 37.8 MCV 90.2 MCH 29.4 MCHC 32.5 RDW 13.2 Plt Count 361 MPV 9.3 L Immature Gran % (Auto) 0.3 Neut % (Auto) 44.5 L Lymph % (Auto) 44.1 H [place] % (Auto) 8.1 Eos % (Auto) 2.1 Baso % (Auto) 0.9 Lymph # (Auto) 2.6 [place] # (Auto) 0.5 Eos # (Auto) 0.1 Baso # (Auto) 0.1 Abs Immat Gran (auto) 0.02 Absolute Neuts (auto) 2.6 Absolute Nucleated RBC 0.000 Nucleated RBC % (auto) 0.0 Sodium Potassium Chloride Carbon Dioxide Anion Gap BUN Creatinine Estim Creat Clear Calc Estimated GFR Random Glucose Calcium Magnesium Total Bilirubin Direct Bilirubin AST ALT Alkaline Phosphatase Ammonia Total Protein Albumin Urine Color Yellow Urine Appearance Cloudy Urine pH 6.5 Ur Specific [place] 1.025 Urine Protein Negative Urine Glucose (UA) Negative Urine Ketones Trace Urine Blood Negative Urine Nitrite Negative Ur Leukocyte Esterase Small (1+) H Urine RBC 0-2 Urine WBC 6-10 H Ur Squamous Epith Cells >20 Urine Bacteria 2+ Hyaline Casts 0-2 Valproic Acid 50.4 Ethyl Alcohol Influenza Type A (PCR) Influenza Type B (PCR) RSV RNA Qual (PCR) SARS-CoV-2 RNA (RT-PCR) 09/12/22 09/12/22 07:37 07:37 WBC RBC Hgb Hct MCV MCH MCHC RDW Plt Count MPV Immature Gran % (Auto) Neut % (Auto) Lymph % (Auto) [place] % (Auto) Eos % (Auto) Baso % (Auto) Lymph # (Auto) [place] # (Auto) Eos # (Auto) Baso # (Auto) Abs Immat Gran (auto) Absolute Neuts (auto) Absolute Nucleated RBC Nucleated RBC % (auto) Sodium Potassium Chloride Carbon Dioxide Anion Gap BUN Creatinine Estim Creat Clear Calc Estimated GFR Random Glucose Calcium Magnesium Total Bilirubin 0.3 Direct Bilirubin < 0.2 AST 10 ALT 15 Alkaline Phosphatase 55 Ammonia Total Protein 5.4 L Albumin 3.7 Urine Color Urine Appearance Urine pH Ur Specific [place] Urine Protein Urine Glucose (UA) Urine Ketones Urine Blood Urine Nitrite Ur Leukocyte Esterase Urine RBC Urine WBC Ur Squamous Epith Cells Urine Bacteria Hyaline Casts Valproic Acid 80.0 Ethyl Alcohol Influenza Type A (PCR) Influenza Type B (PCR) RSV RNA Qual (PCR) SARS-CoV-2 RNA (RT-PCR) 09/09/22 Unknown Urine clean catch - Urine villalpando top Urine Culture - Final DS: Summary Hospital Course Hospital Course: per 09/06 admission note: Patient is a 52 year-old woman with hx of bipolar, history of overusing opioid pain medications and benzodiazepine abuse who, recently discharged from July 20, who presents for disorganized behavior at her Pain Clinic.? Hot Braider met with patient in interview room; she excused herself momentarily to go to the bathroom but then returned.? Patient is a limited historian mostly answering with yes and no questions.? She said that she was fine after she was last discharged and has been taking her medications regularly.? However, Patient said that over the past 2 weeks she has not been sleeping at all, rather just lying in her bed awake, very tired and wishing she could sleep but unable to; she denies any other manic symptoms and reports that she continued to attend to ADLs though did not eat very much and hardly left the house. She also denies that she was or is feeling depressed.? Hot Braider asked how she ended up coming to the hospital and patient says I do not know.? I went to the pain clinic and the next thing I know I was here. Hot Braider recounted that reportedly, patient was disorganized at the Pain Clinic, wandering around lost in the hallways; please were called and brought her here.? Patient denies any AVH and says she never has hallucinations.? She denies any SI or HI.? She remains tired and wants help to sleep. Pt agrees to retrial of [employer] which she helped her i the past. Past Psychiatric History: -past meds: seroquel, haldol, wellbutrin, klonopin, ambien, celexa,? -pt [place] [facility] [place] ? OP: currently reconnecting with [facility] as she no longer sees Kylie Talley due to several no show appointment. Medical Evaluation Reviewed: Yes [facility] Medical History? 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 H/O colectomy H/O endoscopy H/O laparoscopy Hx of colonoscopy S/P cervical discectomy Family History: unknown Social History: Raised by both parents, along with 4 siblings. has 3 older brothers and 1 younger.? Met developmental milestones as expected, graduated high school, bachelor's degree. ? 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 ? Stopped working due to a back injury and resulting severe chronic pain. -Pt lives with her boyfriend. son lives with a relative. Substance History: History of cocaine and benzo abuse; currently denies Trauma History: none divulged Precis: Patient is a 52 year-old woman with hx of bipolar, history of overusing opioid pain medications and benzodiazepine abuse who, recently discharged from July 20, who presents for disorganized behavior at her Pain Clinic.? Patient is a limited historian mostly answering with yes and no questions. Patient is not manic; denies depression; denies AVH however may have negative symptoms.? Patient says she has no recollection of acting in a disorganized way at the pain clinic; in fact she has no recollection of what happened at all at the clinic, including whether not she got her injection.? Patient says she has been taking her medications regularly and denies overtaking them. Initially on admission lower dose is unsure of adherence however will raise back to home dose regimen. Plan: 09/06: Continue home medication regimen Diazepam 10 mg PO BEDTIME PEDRITO Divalproex Sodium (Divalproex Sodium Er 500 Mg Tab.Er.24h)? 1,000 mg PO BEDTIME PEDRITO Mirtazapine? 45 mg PO BEDTIME PEDRITO Olanzapine 30 mg PO BEDTIME PEDRITO Trazodone 200mg qhs Will defer to primary team whether to start: -Diazepam 5 mg PO DAILY PEDRITO -Zolpidem 10mg qhs (pt now on Trazodone 200mg) 09/07: check VPA level, begin valium taper over weekend.? do not restart ambien or morning valium. 09/08: No med changes, continue valium taper 09/09: No med changes, continue valium taper 09/10: No med changes 09/11: valium taper last dose tonight.? discharge tomorrow upon maturation of 3-day notice. 09/12: stable. meds reviewed, reconciled. no scripts needed. discharged to home, aftercare in place. Time Spent with Patient Time attestation: Total time managing care of this patient today ____ minutes. Time spent: Greater than 30 minutes Discharge Plan Discharge Anticipated Discharge Date/Time: 09/12/22 13:00 Patient Disposition: Home, Self-Care Discharge Diagnosis: Bipolar I Disorder, MRE Manic Referrals: Baldev Juan (Psychiatry) [Other] - 10/09/22 1:00 pm (TELEHEALTH APPOINTMENT ) Therapy [Other] - 1 Week (-Please reach out to your therapist regarding your next appointment. ) [facility] [Provider Group] - 1 Week (May use walk in service M-F 8:30-4 as needed ) Discharge Medications: Continued acetaminophen 325 mg Tablet 650 mg PO Q4H PRN (Reason: Pain) divalproex 500 mg Tablet Extended Release 24 Hr 1,000 mg PO BEDTIME 30 Days Qty: 60 0RF tizanidine 4 mg tablet 4 tab PO BEDTIME melatonin 3 mg tablet 1 tab PO BEDTIME benztropine 1 mg tablet 1 tab PO BID olanzapine 10 mg tablet 3 tab PO BEDTIME trazodone 100 mg tablet 2 tab PO BEDTIME mirtazapine 15 mg tablet 3 tab PO BEDTIME Discontinued diazepam 2 mg tablet 10 mg PO BEDTIME zolpidem 10 mg tablet 1 tab PO BEDTIME PRN (Reason: Insomnia) aripiprazole 2 mg tablet 1 tab PO QAM Discharge Orders: Discharge Order (Routine); Ordered 09/12/22 Ordered By: Omar Jean Diet: Advance to usual diet Activity on Discharge: As tolerated Stand Alone Forms: Patient Portal Discharge page, Community Support Care Plan Goals: remain safe, stable, and sober in the outpatient treatment setting Health Concerns: chronic pain Plan of Treatment: take medications as prescribed, attend appointments as scheduled Assessment: not at imminent risk of harm to self or others Discharge Date/Time: 09/12/22 12:55
--- NOTE | 2022-09-12 13:10 | PC.NURSE ---
Patient easily engaged. Reports mood is depressed but stable. Denies SI/HI plan or intent at this time. No reported perceptual disturbances, no overt psychosis or expressed delusions. Planning to return to home. All discharge paperwork reviewed with patient, reported understanding. Medications reviewed reported understanding. Informed of walk in clinic if needed.. Crisis numbers provided to patient.
== END 2022-09-12 12:55 | disposition home or self-care (01) | DRG 885 ==
LOC: HO.ED 14:10 → HO.PADLT16 22:43
PROVIDERS: Physician Assistant; Admitting Provider Psychiatry & Neurology Psychiatry; Emergency Provider Student in an Organized Health Care Education/Training Program; Visit Provider Psychiatry & Neurology Psychiatry
DX: F31.10 Bipolar disorder, current episode manic without psychotic features, unspecified (principal); M79.7 Fibromyalgia; Z20.822 Contact with and (suspected) exposure to COVID-19; Z88.5 Allergy status to narcotic agent; Z88.8 Allergy status to other drugs, medicaments and biological substances; Z79.899 Other long term (current) drug therapy
CPT/HCPCS: 0241U; 36415; 80048; 80076; 80164; 80307; 81001; 82077; 82140; 83735; 85025; 87086; 93005; 99285

== ENCOUNTER 2022-09-27 06:33 | Inpatient (IN) | payer MEDICARE, OTHER, SELFPAY ==
--- NOTE | ~2022-09-27 | CT_ITS ---
EXAMINATION: CT ANGIOGRAM OF THE CHEST WITH AND WITHOUT CONTRAST (CT PULMONARY ANGIOGRAM FOR PE) CLINICAL INFORMATION: Hypotension COMPARISON: None TECHNIQUE: Prior to contrast administration, noncontrast localization images were obtained. Subsequently, multidetector volumetric imaging was performed from the thoracic inlet to below the diaphragms following the administration of 95 mL Omnipaque 350 intravenous contrast. No contrast reaction reported Sagittal, coronal, and MIP oblique sagittal reformatted images were obtained on the CT workstation, uploaded to PACS, and reviewed. This CT examination was performed using dose optimization techniques as appropriate, variously including the following: *Automated exposure control *Adjustment of mA and/or kV according to patient size (this includes techniques or standardized protocols for targeted exams where dose is matched to indication/reason for exam; i.e. extremities or head) *Use of iterative reconstruction technique Total exam dose-length product 1365 mGy-cm FINDINGS: QUALITY OF STUDY/CONTRAST BOLUS: Satisfactory. PULMONARY ARTERIES: No central or segmental pulmonary emboli. THORACIC AORTA: No aneurysm. Opacification is not adequate for evaluation of dissection. LUNG: No focal consolidation, nodules or masses. Some mild dependent atelectasis/groundglass change is present. PLEURA: No pleural effusion or pneumothorax. MEDIASTINUM: Normal heart size. No pericardial effusion. No hilar or mediastinal lymphadenopathy. No evidence of septal bowing or right heart strain. CORONARY ARTERY CALCIFICATION: None visualized on this study. CHEST WALL/AXILLA: Bilateral breast implants are present. No axillary or internal mammary lymphadenopathy. OSSEOUS STRUCTURES: No acute or suspicious osseous abnormality. UPPER ABDOMEN: See report CT abdomen same day No reflux of contrast into the hepatic veins to suggest elevated right heart pressures. CT/CT angio chest PE protocol IMPRESSION: No evidence of pulmonary emboli. VTE: negative.
--- NOTE | ~2022-09-27 | CT_ITS ---
EXAMINATION: CT HEAD WITHOUT CONTRAST CLINICAL INFORMATION: Slurred speech COMPARISON: Head CT 05/27/2022 TECHNIQUE: Imaging was performed from the skull base to vertex without intravenous administration of contrast. This CT examination was performed using dose optimization techniques as appropriate, variously including the following: *Automated exposure control *Adjustment of mA and/or kV according to patient size (this includes techniques or standardized protocols for targeted exams where dose is matched to indication/reason for exam; i.e. extremities or head) *Use of iterative reconstruction technique Total exam dose length product: 664 mGy-cm FINDINGS: No intra or extra-axial fluid collection, hemorrhage, or mass. No ventriculomegaly. No midline shift or herniation. Basal cisterns are patent. Billingsley-white matter differentiation is maintained. No territorial encephalomalacia. No significant volume loss. There is no abnormal attenuation within the brain parenchyma. No calvarial fracture or soft tissue abnormality. The mastoid air cells and visualized portions of the paranasal sinuses are well aerated. CT/CT head/brain wo IV con IMPRESSION: 1. No acute intracranial pathology. No acute edematous territorial infarct or intracranial hemorrhage identified.
--- NOTE | ~2022-09-27 | CT_ITS ---
EXAMINATION: CT ABDOMEN AND PELVIS WITH CONTRAST CLINICAL INFORMATION: Hypotension COMPARISON: CT abdomen pelvis 05/11/2019 TECHNIQUE: Multidetector volumetric images were obtained from the superior aspect of the liver through the pubic symphysis following administration 85 mL of Omnipaque 350 intravenous contrast. Sagittal and coronal reformatted images were obtained on the technologist's workstation. Oral contrast: No This CT examination was performed using dose optimization techniques as appropriate, variously including the following: *Automated exposure control *Adjustment of mA and/or kV according to patient size (this includes techniques or standardized protocols for targeted exams where dose is matched to indication/reason for exam; i.e. extremities or head) *Use of iterative reconstruction technique DLP: 480 mGy-cm FINDINGS: LUNG BASES: see chest CT report same day LIVER, GALLBLADDER, AND BILIARY TREE: The liver is normal in size, shape, and attenuation. No focal hepatic lesion or biliary ductal dilatation is present. The gallbladder is unremarkable with no evidence of radiopaque gallstones, gallbladder wall thickening, or obvious pericholecystic inflammatory changes. PANCREAS: Unremarkable. SPLEEN: Unremarkable. ADRENAL GLANDS: Unremarkable. KIDNEYS AND URETERS: The kidneys are normal in size, shape, and attenuation. No hydronephrosis, hydroureter, or calculi seen. No perinephric stranding. BLADDER: Unremarkable. GASTROINTESTINAL TRACT: The small and large bowel are unremarkable. The appendix is not seen but there is no evidence of appendicitis.. ABDOMINAL WALL: No significant hernia is appreciated. LYMPH NODES: No retroperitoneal lymphadenopathy. VASCULAR: Unremarkable. PELVIC VISCERA: Normal retroverted uterus. An abnormal adnexal mass or free intraperitoneal fluid is not seen. OSSEOUS STRUCTURES: Degenerative changes are seen at L5-S1 with vacuum phenomena. CT/CT abdomen pelvis w IV con IMPRESSION: No significant abnormality. A cause for the patient's hypotension has not been found. Fleischner guidelines were followed.
[2022-09-27 06:57] VITALS: BP 119/87; PULSE 96; RESP 20; TEMP 36.9; O2SAT 96; BMI 22.6
--- NOTE | 2022-09-27 07:14 | ECG_ITS ---
Test Reason : INSOMNIA Blood Pressure : / mmHG Vent. Rate : 085 BPM Atrial Rate : 085 BPM P-R Int : 154 ms QRS Dur : 072 ms QT Int : 420 ms P-R-T Axes : 077 060 079 degrees QTc Int : 499 ms Sinus rhythm with occasional Premature ventricular complexes Possible Left atrial enlargement Low voltage QRS Prolonged QT Abnormal ECG When compared with ECG of 05-SEP-2022 20:19, Significant changes have occurred Referred By: Generic ED Physician Electronically Signed By:Payam Cuenca
--- OUTSIDE RECORDS SUMMARY | 2022-09-27 07:27 | XMS_ITS ---
:1970 Author Care Team Providers Name Role Phone JF STEINBERG MD Primary Care Provider [phone] [facility] OTHER [phone] Allergies Code Code System Name Reaction Severity [...] Name Performed by ? 06/23/2014 CT, Head [facility] ter (Ct Scan) [address], [place] [address] (Work Place) 03/25/2015 MRI, LS-spine [facility] ter (Imaging) [address], [place] [address] (Work Place) 05/04/2015 Mammogram, Screening Information not axel ilable 05/25/2015 Electrocardiogram In-Office Order Internal Use Only DO Not Attach Compendium DO Not Attach Compendium Do Not Delete/merge 02200 Results Lab Results Date Name Specimen Result [...] ? ? Automated 0.0 #/100 ? Final [place] NRBC WBC's Reference Laboratori es: [address], [place] ? ? ? Abs. NRBC 0.0 K/mm3 ? Final [place] Reference Laboratori es: [address], [place] ? ? ? Neut # 4.4 K/mm3 (1.3-7.0) Final [place] K/mm3 Reference Laboratori es: [address], [place] ? ? ? Lymph # 2.8 K/mm3 (0.8-3.1) Final [facility] K/mm3 Reference Laboratori es: [address], [place] ? ? ? [place]# 0.6 K/mm3 (0.4-0.9) Final [place] K/mm3 Reference Laboratori es: [address], [place] ? ? ? Eo # 0.0 K/mm3 (0.0-0.4) Final [place] K/mm3 Reference Laboratori es: [address], [place] ? ? ? Baso # 0.1 K/mm3 (0.0-0.1) Final [place] K/mm3 Reference Laboratori es: [address], [place] ? ? ? Abs. Imm 0.0 K/mm3 ? Final [place] Gran Reference Laboratori es: [address], [place] ? ? ? Neut 55.8 % (44-76) % Final [facility] Reference Laboratori es: [address], [place] ? ? ? Lymph 35.9 % (15-43) % Final [facility] Reference Laboratori es: [address], [place] ? ? ? Monocyte 7.0 % (4.5-10.5) Final [place] % Reference Laboratori es: [address] [...] 60 ? Final [facility] Non mL/min/1.73 Reference [place] M2 Laborato amber: [address], [place] ? ? ? Est GFR >60 ? Final [facility] mL/min/1.73 Refe rence [place] M2 Laborato amber: [address], [place] 06/26/2014 Erythrocyte ? No ? ? ? [facility] Sedimentatio observation Ben n Rate by recorded. [facility] Franky (Lab): [address], [place] 06/26/2014 ESR ? Sedimentat 5 mm/HR (0-20) Final [facility] (Erythrocyte ion Rate mm/HR Re ference Sedimentatio Labo ratories: n Rate), [address], [place] 06/26/2014 C-reactive ? C-reactive 0.1 mg/dL (0-0.5) Final [facility] Protein, Protein mg/dL Referen ce Quantitative Labo ratories: [address], [place] 06/26/2014 C-reactive ? No ? ? ? [facility] Protein, observation Fra nklin Qualitative, recorded. M [facility] Serum (Lab): [address] [facility] 05/31/2014 Streptococcu ? Specimen throat swab ? Final [facility] s Group a, Description R eference Culture, Laborato amber: Throat [address], [place] ? ? ? Special none ? Final [facility] Requests Referenc e Laboratori es: [address], [place] ? ? ? Culture no group A ? Final [facility] kan beta Reference hemolytic Laborat ories: streptococci [address], [place] ? ? ? Report final ? Final [facility] Status 06/02/2014 Refere nce Laboratori es: [address], [place] 05/31/2014 Streptococcu ? No ? ? ? s Group a, observation Culture, recorded. Isolate 08/16/2012 Shoulder Min ? Result: ? ? Final [facility] 2 Views Left Refe rence Laboratori es: [address], [place] 01/30/2012 beta-HCG, ? HCG plus <1 mIU/mL (0-5) Norma l [facility] Qualitative, Beta mIU/mL Refe rence Serum or [...] ? ? Automated 0.0 #/100 ? Final [place] NRBC WBC's Reference Laboratori es: [address] [...] Do Not Delete/yuri ge ? ? ? [place] ? ? ? In-Office Interval Order: Internal [...]
--- NOTE | 2022-09-27 08:07 | ED_ITS ---
HPI - General Adult General Chief complaint: Psychiatric Symptoms <GILMA Odom - Last Filed: 09/27/22 18:38> Stated complaint: Migraine, sensitive <GILMA Odom Last Filed: 09/27/22 18:38> Time Seen by Provider: 09/27/22 08:05 <GILMA Odom Last Filed: 09/27/22 18:38> Source: patient <GILMA Odom Last Filed: 09/27/22 18:38> Mode of arrival: ambulatory <GILMA Odom Last Filed: 09/27/22 18:38> Limitations: no limitations <GILMA Odom Last Filed: 09/27/22 18:38> History of Present Illness HPI narrative: Patient is a 52 year old assigned female at with a history of cocaine use, asthma, and bipolar disorder presenting to the emergency department today with several weeks of no sleep. Patient states that she has been having trouble sleeping for weeks. Patient denies any SI or HI. Patient denies any dizziness, lightheadedness, abdominal pain, nausea, vomiting, fever, chills, blurry vision, double vision, loss of vision, chest pain, difficulty breathing, shortness of breath, back pain, night sweats, pain with urination, increased urinary frequency, increased urinary urgency, blood in her urine or stool, syncope or a near syncopal episode, recent trauma or falls, bowel incontinence, bladder incontinence, bowel retention, bladder retention, or any other complaints at this time. <GILMA Odom Last Filed: 09/27/22 18:38> Onset (ago): week(s) <GILMA Odom - Last Filed: 09/27/22 18:38> Severity: moderate <GILMA Odom Last Filed: 09/27/22 18:38> Severity scale (1-10): 4 <GILMA Odom Last Filed: 09/27/22 18:38> Relieving factors: none <GILMA Odom Last Filed: 09/27/22 18:38> Exacerbating factors: none <GILMA Odom Last Filed: 09/27/22 18:38> Associated symptoms: denies other symptoms <GILMA Odom Last Filed: 09/27/22 18:38> Treatments prior to arrival: none <GILMA Odom - Last Filed: 09/27/22 18:38> Related Data Home medications: Home Medications Medication Instructions Recorded Confirmed acetaminophen 325 mg tablet 650 mg PO Q4H PRN Pain 07/14/22 09/27/22 benztropine 1 mg tablet 1 tab PO BID 09/05/22 09/27/22 mirtazapine 15 mg tablet 3 tab PO BEDTIME 09/05/22 09/27/22 olanzapine 10 mg tablet 3 tab PO BEDTIME 09/05/22 09/27/22 tizanidine 4 mg tablet 4 tab PO BEDTIME 09/05/22 09/27/22 trazodone 100 mg tablet 2 tab PO BEDTIME 09/05/22 09/27/22 aripiprazole 2 mg tablet (Abilify) 1 tab PO DAILY 09/27/22 09/27/22 diazepam 2 mg tablet 1 tab PO BID PRN Anxiety 09/27/22 09/27/22 divalproex 500 mg tablet,extended 500 mg PO BID 09/27/22 09/27/22 release 24 hr folic acid 1 mg tablet 1 tab PO DAILY 09/27/22 09/27/22 hydroxyzine pamoate 25 mg capsule 1 cap PO DAILY PRN Sleep 09/27/22 09/27/22 pyridoxine (vitamin B6) 50 mg 1 tab PO DAILY 09/27/22 09/27/22 tablet simethicone 125 mg tablet 125 mg PO TIDAC 09/27/22 09/27/22 thiamine HCl (vitamin B1) 100 mg 2 tab PO DAILY 09/27/22 09/27/22 tablet zolpidem 10 mg tablet 1 tab PO BEDTIME PRN Insomnia 09/27/22 09/27/22 <GILMA Odom - Last Filed: 09/27/22 18:38> Allergies/adverse reactions: Allergies Allergy/AdvReac Type Severity Reaction Status Date / Time duloxetine [From CYMBALTA] Allergy Unknown Hallucinati Verified 09/27/22 08:43 ons morphine [MORPHINE] Allergy Unknown HALLUCINATI Verified 09/27/22 08:43 ONS Phenylpiperazine AdvReac Severe hallucinati Verified 09/27/22 08:43 Antidepressant ons Tetracyclic Antidepressants AdvReac Severe hallucinati Verified 09/27/22 08:43 ons fentanyl [FENTANYL] AdvReac Unknown Hallucinati Verified 09/27/22 08:43 ons <GILMA Oodm - Last Filed: 09/27/22 18:38> Review of Systems Constitutional: Constitutional: Reports no additional constitutional complaints, Denies chills, Denies fever(s) and Denies night sweats <GILMA Odom - Last Filed: 09/27/22 18:38> Eyes: Eyes: Reports no additional eye complaints, Denies blurry vision, Denies change in vision, Denies diplopia, Denies eye discharge, Denies loss of vision and Denies eye pain <GILMA Odom - Last Filed: 09/27/22 18:38> ENT: Denies dizziness <GILMA Odom - Last Filed: 09/27/22 18:38> Cardiovascular: Cardiovascular: Reports no additional cardiovascular complaints, Denies chest pain, Denies lightheadedness, Denies Loss of Consciousness and Denies dyspnea <GILMA Odom - Last Filed: 09/27/22 18:38> Respiratory: Respiratory: Reports no additional respiratory complaints and Denies dyspnea <GILMA Odom - Last Filed: 09/27/22 18:38> Gastrointestinal: Gastrointestinal: Reports no additional gastrointestinal complaints, Denies abdominal pain, Denies melena, Denies hematochezia, Denies change in bowel habits and Denies change in stool character <GILMA Odom Last Filed: 09/27/22 18:38> Genitourinary: Genitourinary: Denies hematuria, Denies urinary frequency, Denies dysuria, Denies urinary incontinence, Denies urinary hesitancy and Denies urinary urgency <GILMA Odom - Last Filed: 09/27/22 18:38> Musculoskeletal: Musculoskeletal: Reports no additional musculoskeletal complaints, Denies numbness and Denies tingling <GILMA Odom - Last Filed: 09/27/22 18:38> Neurologic: Denies dizziness, Denies loss of vision, Denies numbness and Denies tingling <GILMA Odom - Last Filed: 09/27/22 18:38> Psychiatric: Psychiatric: Reports no additional psychiatric complaints <GILMA Odom - Last Filed: 09/27/22 18:38> Endocrine: Endocrine: Reports no additional endocrine complaints <GILMA Odom - Last Filed: 09/27/22 18:38> Hematologic/Lymphatic: Hematologic/Lymphatic: Reports no additional hematologic/lymphatic complaints <GILMA Odom - Last Filed: 09/27/22 18:38> Allergic/Immunologic: Allergic/Immunologic: Reports no additional allergic/immunologic complaints <GILMA Odom - Last Filed: 09/27/22 18:38> [facility] Past Medical History Attestation statement: The following information was validated with the patient. <GILMA Odom - Last Filed: 09/27/22 18:38> Source: old records reviewed and nursing notes reviewed <GILMA Odom - Last Filed: 09/27/22 18:38> Medical History: Medical History Anal fissure Anemia Anxiety Cervical radiculitis Cervical spinal cord compression Gonsalves hemangioma Chronic diarrhea Chronic narcotic use Chronic night sweats Chronic pain Contact dermatitis Cough Depression Dysconjugate gaze Dysuria Failed back surgical syndrome Fibromyalgia Gastric stress ulcer Gluteal pain Irritable bowel syndrome Left rib fracture Leg weakness Leukocytosis Low back pain Low ferritin Lumbar radiculitis Lumbar radiculopathy, chronic Medication side effects Mental status change resolved Muscle spasm Neck pain Panic attacks Paralysis Paresthesia of right upper limb 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 Pharyngitis Phlebitis Plantar wart Presbycusis Pyogenic granuloma Rash Right cervical radiculopathy Right elbow pain Sleep disturbance Social anxiety disorder Tachycardia Tubular adenoma Underweight Use of opiates for therapeutic purposes Vaginal discharge Vaginitis Viral gastroenteritis Vitamin D deficiency Yeast vaginitis <GILMA Odom - Last Filed: 09/27/22 18:38> Surgical History: Surgical History H/O colectomy H/O endoscopy H/O laparoscopy Hx of colonoscopy S/P cervical discectomy <GILMA Odom - Last Filed: 09/27/22 18:38> Family History Family History: Family History Father AAA (abdominal aortic aneurysm) Mother TMJ (temporomandibular joint disorder) <GILMA Odom - Last Filed: 09/27/22 18:38> Social History Social History: Social History Household Members: None Household Members Other:: Boyfriend Housing: Condominium Do you presently have visiting nurse or other home services: No Alcohol intake: never Patient Tobacco Use Status: Never used Tobacco Smoked in Last 30 Days: No e-Cigarette/Vaping Use: Never Used Second Hand Smoke Exposure: No Use of substances other than those prescribed or required for medical reasons: Yes Substance Use Type: Marijuana Advance Directives: Yes Advance Directives on File: Yes Advance Directives Date on File: 09/13/22 Healthcare Proxy: Yes Guardian: No service: No Current occupational exposures/hazards: No Sexual orientation: Straight/Heterosexual <GILMA Odom - Last Filed: 09/27/22 18:38> Physical Exam ED Vital Signs: Vital Signs - 24 hr 09/27/22 15:10 09/27/22 15:39 09/27/22 17:18 Temperature Pulse Rate 69 50 Respiratory Rate 18 14 Blood Pressure 78/44 L 105/59 L 116/65 Pulse Oximetry 99 98 Oxygen Delivery Method Room Air Room Air 09/28/22 02:34 Temperature 98.4 F Pulse Rate 72 Respiratory Rate 16 Blood Pressure 122/63 Pulse Oximetry 98 Oxygen Delivery Method Room Air BMI result Body Mass Index 22.6 <GILMA Odom - Last Filed: 09/27/22 18:38> Vital Signs - 24 hr 09/27/22 15:10 09/27/22 15:39 09/27/22 17:18 Temperature Pulse Rate 69 50 Respiratory Rate 18 14 Blood Pressure 78/44 L 105/59 L 116/65 Pulse Oximetry 99 98 Oxygen Delivery Method Room Air Room Air 09/28/22 02:34 Temperature 98.4 F Pulse Rate 72 Respiratory Rate 16 Blood Pressure 122/63 Pulse Oximetry 98 Oxygen Delivery Method Room Air BMI result Body Mass Index 22.6 <Rodney Weber MD - Last Filed: 09/28/22 07:31> Const General: cooperative, no acute distress, alert and awake <GILMA Odom - Last Filed: 09/27/22 18:38> Nutritional Appearance: well nourished <Katelynn Ming [place] - Last Filed: 09/27/22 18:38> Orientation/consciousness: patient oriented x3 <Katelynnthomas Chamberslisa [place] - Last Filed: 09/27/22 18:38> Limitations: no limitations <Katelynn Lai IL - Last Filed: 09/27/22 18:38> HENMT Head: Yes normal to inspection and Yes atraumatic <Katelynn Ming [place] - Last Filed: 09/27/22 18:38> Ears: hearing grossly normal bilaterally and external ears normal <Katelynn Ming [place] - Last Filed: 09/27/22 18:38> General nose exam: Normal external nose present, no nasal discharge noted and no epistaxis <Katelynnthomas Chamberslisa [place] - Last Filed: 09/27/22 18:38> Face and sinus: Yes normal facial exam, No abrasion and No laceration <Katelynn Lai IL - Last Filed: 09/27/22 18:38> Mouth: Normal oral and palatal mucosa present, no drooling and no muffled voice <Katelynn Lai [place] - Last Filed: 09/27/22 18:38> Eyes General: appearance normal, both eyes and all related structures <Katelynn Lai IL - Last Filed: 09/27/22 18:38> Periorbital: periorbital findings normal <Katelynn Lai IL - Last Filed: 09/27/22 18:38> Eyelids: Yes eyelids normal <Katelynn Lai IL - Last Filed: 09/27/22 18:38> Conjunctivae: conjunctivae normal <Katelynn Ming IL - Last Filed: 09/27/22 18:38> Pupils: Equal, round and reactive pupils present <Katelynn Lai IL - Last Filed: 09/27/22 18:38> EOM: EOMs intact bilaterally <Katelynn Lai IL - Last Filed: 09/27/22 18:38> Neck Neck: Yes normal visual inspection, Yes full ROM and Yes no lymphadenopathy <Katelynn Lai IL - Last Filed: 09/27/22 18:38> Chest Chest palpation & inspection: normal inspection of the chest <Katelynn LaiGILMA - Last Filed: 09/27/22 18:38> Resp Effort & Inspection: normal respiratory effort and able to speak in complete sentences <Katelynn LaiGILMA - Last Filed: 09/27/22 18:38> Auscultation: clear to auscultation bilaterally <Katelynn Lai PA - Last Filed: 09/27/22 18:38> Cardio Rate: regular rate <Katelynn Lai PA - Last Filed: 09/27/22 18:38> Rhythm: regular rhythm <Katelynn Lai PA - Last Filed: 09/27/22 18:38> GI Inspection: Yes normal to inspection <Katelynn Lai PA - Last Filed: 09/27/22 18:38> Palpation (GI): Soft to palpation, not firm, nontender and no guarding <Katelynn Lai PA - Last Filed: 09/27/22 18:38> Neuro General: patient oriented x3 and moves all extremities <Katelynn Lai PA - Last Filed: 09/27/22 18:38> Cranial nerves: Yes Equal, round and reactive pupils present <Katelynn Lai PA - Last Filed: 09/27/22 18:38> Cognition (Neuro): normal cognition <Katelynn Lai PA - Last Filed: 09/27/22 18:38> Motor exam (neuro): 5/5 motor strength present throughout <Katelynn Lai PA - Last Filed: 09/27/22 18:38> Sensory Exam: Normal double simultaneous stimulation for sensation <Katelynn Lai PA - Last Filed: 09/27/22 18:38> Coordination: [id number] test normal <Katelynn Lai PA - Last Filed: 09/27/22 18:38> Extrem General: Yes normal to inspection, Yes full ROM and Yes capillary refill normal <Katelynn Lai PA - Last Filed: 09/27/22 18:38> Psych Speech and movement: Pressured speech present <Katelynn Lai PA - Last Filed: 09/27/22 18:38> Affect: Animated affect present <Katelynn Chamberslisa PA - Last Filed: 09/27/22 18:38> Attitude: cooperative <GILMA Odom - Last Filed: 09/27/22 18:38> Thought process: Flight of ideas present <GILMA Odom - Last Filed: 09/27/22 18:38> Insight: Limited insight present (Psych) <GILMA Odom - Last Filed: 09/27/22 18:38> Course Reevaluation(s) Reevaluation #1: Patient is seen for depression and insomnia, patient is COVID positive, bed search is underway, stable vital signs otherwise, no issue reported by the nurse overnight, will continue with physician observation <Rodney Weber MD - Last Filed: 09/28/22 07:31> Time: 07:30 <Rodney Weber MD - Last Filed: 09/28/22 07:31> Medications Administered Generic Name Dose Route Start Last Admin Trade Name Freq PRN Reason Stop Dose Admin Benztropine Mesylate 1 mg 09/27/22 21:00 09/27/22 21:05 Benztropine Mesylate 1 Mg Tablet PO 1 mg BID PEDRITO Administration Divalproex Sodium 500 mg 09/27/22 21:00 09/27/22 21:05 Divalproex Sodium Er 500 Mg Tab.Er.24h PO 500 mg BID PEDRITO Administration Mirtazapine 45 mg 09/27/22 21:00 09/27/22 21:05 Mirtazapine 15 Mg Tablet PO 45 mg BEDTIME PEDRITO Administration Olanzapine 30 mg 09/27/22 21:00 09/27/22 21:03 Olanzapine 10 Mg Tablet PO 30 mg BEDTIME PEDRITO Administration Tizanidine HCl 16 mg 09/27/22 21:00 09/27/22 21:04 Tizanidine Hcl 4 Mg Tablet PO 16 mg BEDTIME PEDRITO Administration Trazodone HCl 200 mg 09/27/22 21:00 09/27/22 21:04 Trazodone Hcl 100 Mg Tablet PO 200 mg BEDTIME PEDRITO Administration Zolpidem Tartrate 10 mg 09/27/22 19:58 09/27/22 21:05 Zolpidem Tartrate 5 Mg Tablet PO 10 mg BEDTIME PRN Administration Insomnia Discontinued Medications Generic Name Dose Route Start Last Admin Trade Name Freq PRN Reason Stop Dose Admin Sodium Chloride 1,000 mls @ 999 mls/hr 09/27/22 15:15 09/27/22 17:17 Ns IV 09/27/22 16:15 Infused .Q1H1M PEDRITO Infusion Sodium Chloride 1,000 mls @ 999 mls/hr 09/27/22 15:45 09/27/22 17:17 Ns IV 09/27/22 16:45 Infused .Q1H1M PEDRITO Infusion Iohexol 100 ml 09/27/22 16:16 09/27/22 16:17 Iohexol 350 Mg/Ml 100 Ml Infus..Btl IV 09/27/22 16:17 85 ml ONCE ONE Administration Lorazepam 2 mg 09/27/22 08:08 09/27/22 08:19 Lorazepam 1 Mg Tablet PO 09/27/22 08:09 2 mg ONCE ONE Administration Potassium Chloride 40 meq 09/27/22 12:08 09/27/22 13:19 Potassium Chloride Packet 20 Meq Packet PO 09/27/22 12:09 Not Given ONCE ONE Potassium Chloride 40 meq 09/27/22 13:42 09/27/22 14:12 Potassium Chloride Er 20 Meq Tab.Er.Prt PO 09/27/22 13:43 40 meq ONCE ONE Administration <GILMA Odom - Last Filed: 09/27/22 18:38> Medications Administered Generic Name Dose Route Start Last Admin Trade Name Freq PRN Reason Stop Dose Admin Benztropine Mesylate 1 mg 09/27/22 21:00 09/27/22 21:05 Benztropine Mesylate 1 Mg Tablet PO 1 mg BID PEDRITO Administration Divalproex Sodium 500 mg 09/27/22 21:00 09/27/22 21:05 Divalproex Sodium Er 500 Mg Tab.Er.24h PO 500 mg BID PEDRITO Administration Mirtazapine 45 mg 09/27/22 21:00 09/27/22 21:05 Mirtazapine 15 Mg Tablet PO 45 mg BEDTIME PEDRITO Administration Olanzapine 30 mg 09/27/22 21:00 09/27/22 21:03 Olanzapine 10 Mg Tablet PO 30 mg BEDTIME PEDRITO Administration Tizanidine HCl 16 mg 09/27/22 21:00 09/27/22 21:04 Tizanidine Hcl 4 Mg Tablet PO 16 mg BEDTIME PEDRITO Administration Trazodone HCl 200 mg 09/27/22 21:00 09/27/22 21:04 Trazodone Hcl 100 Mg Tablet PO 200 mg BEDTIME PEDRITO Administration Zolpidem Tartrate 10 mg 09/27/22 19:58 09/27/22 21:05 Zolpidem Tartrate 5 Mg Tablet PO 10 mg BEDTIME PRN Administration Insomnia Discontinued Medications Generic Name Dose Route Start Last Admin Trade Name Kirsty PRN Reason Stop Dose Admin Sodium Chloride 1,000 mls @ 999 mls/hr 09/27/22 15:15 09/27/22 17:17 Ns IV 09/27/22 16:15 Infused .Q1H1M PEDRITO Infusion Sodium Chloride 1,000 mls @ 999 mls/hr 09/27/22 15:45 09/27/22 17:17 Ns IV 09/27/22 16:45 Infused .Q1H1M PEDRITO Infusion Iohexol 100 ml 09/27/22 16:16 09/27/22 16:17 Iohexol 350 Mg/Ml 100 Ml Infus..Btl IV 09/27/22 16:17 85 ml ONCE ONE Administration Lorazepam 2 mg 09/27/22 08:08 09/27/22 08:19 Lorazepam 1 Mg Tablet PO 09/27/22 08:09 2 mg ONCE ONE Administration Potassium Chloride 40 meq 09/27/22 12:08 09/27/22 13:19 Potassium Chloride Packet 20 Meq Packet PO 09/27/22 12:09 Not Given ONCE ONE Potassium Chloride 40 meq 09/27/22 13:42 09/27/22 14:12 Potassium Chloride Er 20 Meq Tab.Er.Prt PO 09/27/22 13:43 40 meq ONCE ONE Administration <Rodney Weber MD - Last Filed: 09/28/22 07:31> Medical Decision Making Medical Decision Making MDM Narrative: Patient is a 52 year old assigned female at with a history of bipolar disorder and cocaine use presenting to the emergency department today without sleep for weeks. Patient's physical exam showed pressured speech and a disorganized individual. Patient's blood work showed an elevated WBC count of 11.4 and a potassium of 3.2. Patient's COVID-19 test was positive. Patient's urine showed no acute process. Patient was awaiting psychiatric admission when she had an episode of lightheadedness. Patient was brought over to the main ED and had additional testing performed. Patient's EKG was unremarkable. Patient's CTA of the chest, CT abdomen/pelvis, and head CT showed no acute process. Nita marie was given 2 liters of IV fluids which resolved her lightheadedness. Patient was placed back in the behavioral health POD and will await psychiatric admission. I explained my physical exam findings as well as all test results to the patient. I answered all questions asked by the patient. <GILMA Odom - Last Filed: 09/27/22 18:38> Differential Diagnosis Differential Diagnoses: The differential diagnosis associated with the presentation includes <GILMA Odom - Last Filed: 09/27/22 18:38> Manic episode, bipolar disorder <GILMA Odom - Last Filed: 09/27/22 18:38> Lab Data MDM Lab Attestation statement: I reviewed the patient's lab results. <GILMA Odom - Last Filed: 09/27/22 18:38> Result Diagrams: 09/27/22 11:40 09/27/22 11:40 <GILMA Odom - Last Filed: 09/27/22 18:38> Labs: Lab Results 09/27/22 09/27/22 09/27/22 Range/Units 08:06 09:12 09:12 WBC (4.8-10.8) X10*3/uL RBC (4.20-5.50) X10*6/uL Hgb (12.0-16.0) g/dl Hct (37.0-47.0) % MCV (80.0-98.0) fL MCH (27.0-33.0) pg MCHC (31.0-35.0) g/dl RDW (11.0-16.0) % Plt Count (160-400) X10*3/uL MPV (9.4-12.3) fL Absolute Nucleated RBC (0.0-0.012) X10*3/uL Nucleated RBC % (auto) (0.0-0.2) /100WBC PT (10.0-13.1) SEC INR (0.9-1.1) APTT (26.0-36.4) SEC Sodium (135-145) mmol/L Potassium (3.3-5.1) mmol/L Chloride (96-108) mmol/L Carbon Dioxide (22-29) mmol/L Anion Gap (12-20) BUN (9-16) mg/dL Creatinine (0.5-1.4) mg/dL Estim Creat Clear Calc Estimated GFR Random Glucose (60-115) mg/dL Calcium (8.4-10.2) mg/dL Magnesium (1.6-2.6) mg/dL Total Bilirubin (0.0-1.0) mg/dL AST (5-31) U/L ALT (0-31) U/L Alkaline Phosphatase (39-117) U/L Ammonia (13-55) umol/L Total Creatine Kinase (26-140) U/L Troponin I High Sens (<3.5-17.0) ng/L Total Protein (6.5-8.0) g/dL Albumin (3.5-5.0) g/dL Urine Color Yellow Urine Appearance Clear Urine pH 6.0 (5.0-9.0) Ur Specific [place] 1.025 (1.005-1.025) Urine Protein Trace (Neg-Trace) mg/dL Urine Glucose (UA) Negative (Negative) mg/dL Urine Ketones 15 (Negative) mg/dL Urine Blood Negative (Negative) Urine Nitrite Negative (Negative) Ur Leukocyte Esterase Negative (Negative) Salicylates (15-30) mg/dL Urine Opiates Screen Not Detected (Not Detect) Urine Fentanyl Screen Not Detected (Not Detect) Acetaminophen (<30) mcg/mL Ur Barbiturates Screen Not Detected (Not Detect) Valproic Acid (50.0-100.0) mcg/mL Ur Phencyclidine Scrn Not Detected (Not Detect) Ur Amphetamines Screen Not Detected (Not Detect) U Benzodiazepines Scrn POSITIVE H (Not Detect) Urine Cocaine Screen Not Detected (Not Detect) U Marijuana (THC) Screen POSITIVE H (Not Detect) Ethyl Alcohol mg/dL COVID-19 (SALLY) Positive A (Negative) COVID-19 Clin Com See Note 09/27/22 09/27/22 09/27/22 Range/Units 11:40 11:40 11:40 WBC 11.4 H (4.8-10.8) X10*3/uL RBC 4.12 L (4.20-5.50) X10*6/uL Hgb 12.3 (12.0-16.0) g/dl Hct 36.6 L (37.0-47.0) % MCV 88.8 (80.0-98.0) fL MCH 29.9 (27.0-33.0) pg MCHC 33.6 (31.0-35.0) g/dl RDW 13.3 (11.0-16.0) % Plt Count 359 (160-400) X10*3/uL MPV 9.7 (9.4-12.3) fL Absolute Nucleated RBC 0.000 (0.0-0.012) X10*3/uL Nucleated RBC % (auto) 0.0 (0.0-0.2) /100WBC PT (10.0-13.1) SEC INR (0.9-1.1) APTT (26.0-36.4) SEC Sodium 140 (135-145) mmol/L Potassium 3.2 L (3.3-5.1) mmol/L Chloride 107 (96-108) mmol/L Carbon Dioxide 27 (22-29) mmol/L Anion Gap 9 L (12-20) BUN 10 (9-16) mg/dL Creatinine 0.78 (0.5-1.4) mg/dL Estim Creat Clear Calc 78.0 Estimated GFR > 60 Random Glucose 137 H (60-115) mg/dL Calcium 8.3 L D (8.4-10.2) mg/dL Magnesium 1.7 (1.6-2.6) mg/dL Total Bilirubin 0.3 (0.0-1.0) mg/dL AST 14 (5-31) U/L ALT 13 (0-31) U/L Alkaline Phosphatase 59 (39-117) U/L Ammonia (13-55) umol/L Total Creatine Kinase (26-140) U/L Troponin I High Sens (<3.5-17.0) ng/L Total Protein 5.8 L (6.5-8.0) g/dL Albumin 3.9 (3.5-5.0) g/dL Urine Color Urine Appearance Urine pH (5.0-9.0) Ur Specific [place] (1.005-1.025) Urine Protein (Neg-Trace) mg/dL Urine Glucose (UA) (Negative) mg/dL Urine Ketones (Negative) mg/dL Urine Blood (Negative) Urine Nitrite (Negative) Ur Leukocyte Esterase (Negative) Salicylates (15-30) mg/dL Urine Opiates Screen (Not Detect) Urine Fentanyl Screen (Not Detect) Acetaminophen (<30) mcg/mL Ur Barbiturates Screen (Not Detect) Valproic Acid 83.9 (50.0-100.0) mcg/mL Ur Phencyclidine Scrn (Not Detect) Ur Amphetamines Screen (Not Detect) U Benzodiazepines Scrn (Not Detect) Urine Cocaine Screen (Not Detect) U Marijuana (THC) Screen (Not Detect) Ethyl Alcohol mg/dL COVID-19 (SALLY) (Negative) COVID-19 Clin Com 09/27/22 09/27/22 09/27/22 Range/Units 11:40 15:48 15:48 WBC (4.8-10.8) X10*3/uL RBC (4.20-5.50) X10*6/uL Hgb (12.0-16.0) g/dl Hct (37.0-47.0) % MCV (80.0-98.0) fL MCH (27.0-33.0) pg MCHC (31.0-35.0) g/dl RDW (11.0-16.0) % Plt Count (160-400) X10*3/uL MPV (9.4-12.3) fL Absolute Nucleated RBC (0.0-0.012) X10*3/uL Nucleated RBC % (auto) (0.0-0.2) /100WBC PT 11.6 (10.0-13.1) SEC INR 1.0 (0.9-1.1) APTT 27.5 (26.0-36.4) SEC Sodium (135-145) mmol/L Potassium (3.3-5.1) mmol/L Chloride (96-108) mmol/L Carbon Dioxide (22-29) mmol/L Anion Gap (12-20) BUN (9-16) mg/dL Creatinine (0.5-1.4) mg/dL Estim Creat Clear Calc Estimated GFR Random Glucose (60-115) mg/dL Calcium (8.4-10.2) mg/dL Magnesium (1.6-2.6) mg/dL Total Bilirubin (0.0-1.0) mg/dL AST (5-31) U/L ALT (0-31) U/L Alkaline Phosphatase (39-117) U/L Ammonia 47 (13-55) umol/L Total Creatine Kinase 80 (26-140) U/L Troponin I High Sens (<3.5-17.0) ng/L Total Protein (6.5-8.0) g/dL Albumin (3.5-5.0) g/dL Urine Color Urine Appearance Urine pH (5.0-9.0) Ur Specific [place] (1.005-1.025) Urine Protein (Neg-Trace) mg/dL Urine Glucose (UA) (Negative) mg/dL Urine Ketones (Negative) mg/dL Urine Blood (Negative) Urine Nitrite (Negative) Ur Leukocyte Esterase (Negative) Salicylates (15-30) mg/dL Urine Opiates Screen (Not Detect) Urine Fentanyl Screen (Not Detect) Acetaminophen (<30) mcg/mL Ur Barbiturates Screen (Not Detect) Valproic Acid (50.0-100.0) mcg/mL Ur Phencyclidine Scrn (Not Detect) Ur Amphetamines Screen (Not Detect) U Benzodiazepines Scrn (Not Detect) Urine Cocaine Screen (Not Detect) U Marijuana (THC) Screen (Not Detect) Ethyl Alcohol mg/dL COVID-19 (SALLY) (Negative) COVID-19 Clin Com 09/27/22 09/27/22 Range/Units 15:48 16:09 WBC (4.8-10.8) X10*3/uL RBC (4.20-5.50) X10*6/uL Hgb (12.0-16.0) g/dl Hct (37.0-47.0) % MCV (80.0-98.0) fL MCH (27.0-33.0) pg MCHC (31.0-35.0) g/dl RDW (11.0-16.0) % Plt Count (160-400) X10*3/uL MPV (9.4-12.3) fL Absolute Nucleated RBC (0.0-0.012) X10*3/uL Nucleated RBC % (auto) (0.0-0.2) /100WBC PT (10.0-13.1) SEC INR (0.9-1.1) APTT (26.0-36.4) SEC Sodium (135-145) mmol/L Potassium (3.3-5.1) mmol/L Chloride (96-108) mmol/L Carbon Dioxide (22-29) mmol/L Anion Gap (12-20) BUN (9-16) mg/dL Creatinine (0.5-1.4) mg/dL Estim Creat Clear Calc Estimated GFR Random Glucose (60-115) mg/dL Calcium (8.4-10.2) mg/dL Magnesium (1.6-2.6) mg/dL Total Bilirubin (0.0-1.0) mg/dL AST (5-31) U/L ALT (0-31) U/L Alkaline Phosphatase (39-117) U/L Ammonia (13-55) umol/L Total Creatine Kinase (26-140) U/L Troponin I High Sens < 3.5 (<3.5-17.0) ng/L Total Protein (6.5-8.0) g/dL Albumin (3.5-5.0) g/dL Urine Color Urine Appearance Urine pH (5.0-9.0) Ur Specific [place] (1.005-1.025) Urine Protein (Neg-Trace) mg/dL Urine Glucose (UA) (Negative) mg/dL Urine Ketones (Negative) mg/dL Urine Blood (Negative) Urine Nitrite (Negative) Ur Leukocyte Esterase (Negative) Salicylates < 5.0 L (15-30) mg/dL Urine Opiates Screen (Not Detect) Urine Fentanyl Screen (Not Detect) Acetaminophen < 17 (<30) mcg/mL Ur Barbiturates Screen (Not Detect) Valproic Acid (50.0-100.0) mcg/mL Ur Phencyclidine Scrn (Not Detect) Ur Amphetamines Screen (Not Detect) U Benzodiazepines Scrn (Not Detect) Urine Cocaine Screen (Not Detect) U Marijuana (THC) Screen (Not Detect) Ethyl Alcohol < 10 mg/dL COVID-19 (SALLY) (Negative) COVID-19 Clin Com <GILMA Odom - Last Filed: 09/27/22 18:38> Lab Results 09/27/22 09/27/22 09/27/22 Range/Units 08:06 09:12 09:12 WBC (4.8-10.8) X10*3/uL RBC (4.20-5.50) X10*6/uL Hgb (12.0-16.0) g/dl Hct (37.0-47.0) % MCV (80.0-98.0) fL MCH (27.0-33.0) pg MCHC (31.0-35.0) g/dl RDW (11.0-16.0) % Plt Count (160-400) X10*3/uL MPV (9.4-12.3) fL Absolute Nucleated RBC (0.0-0.012) X10*3/uL Nucleated RBC % (auto) (0.0-0.2) /100WBC PT (10.0-13.1) SEC INR (0.9-1.1) APTT (26.0-36.4) SEC Sodium (135-145) mmol/L Potassium (3.3-5.1) mmol/L Chloride (96-108) mmol/L Carbon Dioxide (22-29) mmol/L Anion Gap (12-20) BUN (9-16) mg/dL Creatinine (0.5-1.4) mg/dL Estim Creat Clear Calc Estimated GFR Random Glucose (60-115) mg/dL Calcium (8.4-10.2) mg/dL Magnesium (1.6-2.6) mg/dL Total Bilirubin (0.0-1.0) mg/dL AST (5-31) U/L ALT (0-31) U/L Alkaline Phosphatase (39-117) U/L Ammonia (13-55) umol/L Total Creatine Kinase (26-140) U/L Troponin I High Sens (<3.5-17.0) ng/L Total Protein (6.5-8.0) g/dL Albumin (3.5-5.0) g/dL Urine Color Yellow Urine Appearance Clear Urine pH 6.0 (5.0-9.0) Ur Specific [place] 1.025 (1.005-1.025) Urine Protein Trace (Neg-Trace) mg/dL Urine Glucose (UA) Negative (Negative) mg/dL Urine Ketones 15 (Negative) mg/dL Urine Blood Negative (Negative) Urine Nitrite Negative (Negative) Ur Leukocyte Esterase Negative (Negative) Salicylates (15-30) mg/dL Urine Opiates Screen Not Detected (Not Detect) Urine Fentanyl Screen Not Detected (Not Detect) Acetaminophen (<30) mcg/mL Ur Barbiturates Screen Not Detected (Not Detect) Valproic Acid (50.0-100.0) mcg/mL Ur Phencyclidine Scrn Not Detected (Not Detect) Ur Amphetamines Screen Not Detected (Not Detect) U Benzodiazepines Scrn POSITIVE H (Not Detect) Urine Cocaine Screen Not Detected (Not Detect) U Marijuana (THC) Screen POSITIVE H (Not Detect) Ethyl Alcohol mg/dL COVID-19 (SALLY) Positive A (Negative) COVID-19 Clin Com See Note 09/27/22 09/27/22 09/27/22 Range/Units 11:40 11:40 11:40 WBC 11.4 H (4.8-10.8) X10*3/uL RBC 4.12 L (4.20-5.50) X10*6/uL Hgb 12.3 (12.0-16.0) g/dl Hct 36.6 L (37.0-47.0) % MCV 88.8 (80.0-98.0) fL MCH 29.9 (27.0-33.0) pg MCHC 33.6 (31.0-35.0) g/dl RDW 13.3 (11.0-16.0) % Plt Count 359 (160-400) X10*3/uL MPV 9.7 (9.4-12.3) fL Absolute Nucleated RBC 0.000 (0.0-0.012) X10*3/uL Nucleated RBC % (auto) 0.0 (0.0-0.2) /100WBC PT (10.0-13.1) SEC INR (0.9-1.1) APTT (26.0-36.4) SEC Sodium 140 (135-145) mmol/L Potassium 3.2 L (3.3-5.1) mmol/L Chloride 107 (96-108) mmol/L Carbon Dioxide 27 (22-29) mmol/L Anion Gap 9 L (12-20) BUN 10 (9-16) mg/dL Creatinine 0.78 (0.5-1.4) mg/dL Estim Creat Clear Calc 78.0 Estimated GFR > 60 Random Glucose 137 H (60-115) mg/dL Calcium 8.3 L D (8.4-10.2) mg/dL Magnesium 1.7 (1.6-2.6) mg/dL Total Bilirubin 0.3 (0.0-1.0) mg/dL AST 14 (5-31) U/L ALT 13 (0-31) U/L Alkaline Phosphatase 59 (39-117) U/L Ammonia (13-55) umol/L Total Creatine Kinase (26-140) U/L Troponin I High Sens (<3.5-17.0) ng/L Total Protein 5.8 L (6.5-8.0) g/dL Albumin 3.9 (3.5-5.0) g/dL Urine Color Urine Appearance Urine pH (5.0-9.0) Ur Specific [place] (1.005-1.025) Urine Protein (Neg-Trace) mg/dL Urine Glucose (UA) (Negative) mg/dL Urine Ketones (Negative) mg/dL Urine Blood (Negative) Urine Nitrite (Negative) Ur Leukocyte Esterase (Negative) Salicylates (15-30) mg/dL Urine Opiates Screen (Not Detect) Urine Fentanyl Screen (Not Detect) Acetaminophen (<30) mcg/mL Ur Barbiturates Screen (Not Detect) Valproic Acid 83.9 (50.0-100.0) mcg/mL Ur Phencyclidine Scrn (Not Detect) Ur Amphetamines Screen (Not Detect) U Benzodiazepines Scrn (Not Detect) Urine Cocaine Screen (Not Detect) U Marijuana (THC) Screen (Not Detect) Ethyl Alcohol mg/dL COVID-19 (SALLY) (Negative) COVID-19 Clin Com 09/27/22 09/27/22 09/27/22 Range/Units 11:40 15:48 15:48 WBC (4.8-10.8) X10*3/uL RBC (4.20-5.50) X10*6/uL Hgb (12.0-16.0) g/dl Hct (37.0-47.0) % MCV (80.0-98.0) fL MCH (27.0-33.0) pg MCHC (31.0-35.0) g/dl RDW (11.0-16.0) % Plt Count (160-400) X10*3/uL MPV (9.4-12.3) fL Absolute Nucleated RBC (0.0-0.012) X10*3/uL Nucleated RBC % (auto) (0.0-0.2) /100WBC PT 11.6 (10.0-13.1) SEC INR 1.0 (0.9-1.1) APTT 27.5 (26.0-36.4) SEC Sodium (135-145) mmol/L Potassium (3.3-5.1) mmol/L Chloride (96-108) mmol/L Carbon Dioxide (22-29) mmol/L Anion Gap (12-20) BUN (9-16) mg/dL Creatinine (0.5-1.4) mg/dL Estim Creat Clear Calc Estimated GFR Random Glucose (60-115) mg/dL Calcium (8.4-10.2) mg/dL Magnesium (1.6-2.6) mg/dL Total Bilirubin (0.0-1.0) mg/dL AST (5-31) U/L ALT (0-31) U/L Alkaline Phosphatase (39-117) U/L Ammonia 47 (13-55) umol/L Total Creatine Kinase 80 (26-140) U/L Troponin I High Sens (<3.5-17.0) ng/L Total Protein (6.5-8.0) g/dL Albumin (3.5-5.0) g/dL Urine Color Urine Appearance Urine pH (5.0-9.0) Ur Specific [place] (1.005-1.025) Urine Protein (Neg-Trace) mg/dL Urine Glucose (UA) (Negative) mg/dL Urine Ketones (Negative) mg/dL Urine Blood (Negative) Urine Nitrite (Negative) Ur Leukocyte Esterase (Negative) Salicylates (15-30) mg/dL Urine Opiates Screen (Not Detect) Urine Fentanyl Screen (Not Detect) Acetaminophen (<30) mcg/mL Ur Barbiturates Screen (Not Detect) Valproic Acid (50.0-100.0) mcg/mL Ur Phencyclidine Scrn (Not Detect) Ur Amphetamines Screen (Not Detect) U Benzodiazepines Scrn (Not Detect) Urine Cocaine Screen (Not Detect) U Marijuana (THC) Screen (Not Detect) Ethyl Alcohol mg/dL COVID-19 (SALLY) (Negative) COVID-19 Clin Com 09/27/22 09/27/22 Range/Units 15:48 16:09 WBC (4.8-10.8) X10*3/uL RBC (4.20-5.50) X10*6/uL Hgb (12.0-16.0) g/dl Hct (37.0-47.0) % MCV (80.0-98.0) fL MCH (27.0-33.0) pg MCHC (31.0-35.0) g/dl RDW (11.0-16.0) % Plt Count (160-400) X10*3/uL MPV (9.4-12.3) fL Absolute Nucleated RBC (0.0-0.012) X10*3/uL Nucleated RBC % (auto) (0.0-0.2) /100WBC PT (10.0-13.1) SEC INR (0.9-1.1) APTT (26.0-36.4) SEC Sodium (135-145) mmol/L Potassium (3.3-5.1) mmol/L Chloride (96-108) mmol/L Carbon Dioxide (22-29) mmol/L Anion Gap (12-20) BUN (9-16) mg/dL Creatinine (0.5-1.4) mg/dL Estim Creat Clear Calc Estimated GFR Random Glucose (60-115) mg/dL Calcium (8.4-10.2) mg/dL Magnesium (1.6-2.6) mg/dL Total Bilirubin (0.0-1.0) mg/dL AST (5-31) U/L ALT (0-31) U/L Alkaline Phosphatase (39-117) U/L Ammonia (13-55) umol/L Total Creatine Kinase (26-140) U/L Troponin I High Sens < 3.5 (<3.5-17.0) ng/L Total Protein (6.5-8.0) g/dL Albumin (3.5-5.0) g/dL Urine Color Urine Appearance Urine pH (5.0-9.0) Ur Specific [place] (1.005-1.025) Urine Protein (Neg-Trace) mg/dL Urine Glucose (UA) (Negative) mg/dL Urine Ketones (Negative) mg/dL Urine Blood (Negative) Urine Nitrite (Negative) Ur Leukocyte Esterase (Negative) Salicylates < 5.0 L (15-30) mg/dL Urine Opiates Screen (Not Detect) Urine Fentanyl Screen (Not Detect) Acetaminophen < 17 (<30) mcg/mL Ur Barbiturates Screen (Not Detect) Valproic Acid (50.0-100.0) mcg/mL Ur Phencyclidine Scrn (Not Detect) Ur Amphetamines Screen (Not Detect) U Benzodiazepines Scrn (Not Detect) Urine Cocaine Screen (Not Detect) U Marijuana (THC) Screen (Not Detect) Ethyl Alcohol < 10 mg/dL COVID-19 (SALLY) (Negative) COVID-19 Clin Com <Rodney Weber MD - Last Filed: 09/28/22 07:31> Independent Interpretation I performed an independent interpretation of an: EKG <GILMA Odom - Last Filed: 09/27/22 18:38> Interpretation: Vent. Rate: 085 BPM ? ? Atrial Rate: 085 BPM P-R Int: 154 ms? QRS Dur: 072 ms QT Int: 420 ms ? ? ? P-R-T Axes: 077 060 079 degrees QTc Int: 499 ms ? Sinus rhythm with occasional Premature ventricular complexes Possible Left atrial enlargement Low voltage QRS Prolonged QT Abnormal ECG When compared with ECG of 05-SEP-2022 20:19, Significant changes have occurred <GILMA Odom - Last Filed: 09/27/22 18:38> Radiology Impression Discussion of test interpretation with radiology: I have reviewed the radiologist's reading. <GILMA Odom - Last Filed: 09/27/22 18:38> Radiologist Impression: My interpretation is in agreement with the radiologist's impression of these imaging studies. ---- EXAMINATION: CT ABDOMEN AND PELVIS WITH CONTRAST? CLINICAL INFORMATION: Hypotension? COMPARISON: CT abdomen pelvis 05/11/2019? TECHNIQUE: Multidetector volumetric images were obtained from the superior aspect of the liver through the pubic symphysis following administration 85 mL of Omnipaque 350 intravenous contrast. Sagittal and coronal reformatted images were obtained on the technologist's workstation.? Oral contrast: No This CT examination was performed using dose optimization techniques as appropriate, variously including the following: *Automated exposure control *Adjustment of mA and/or kV according to patient size (this includes techniques or standardized protocols for targeted exams where dose is matched to indication/reason for exam; i.e. extremities or head) *Use of iterative reconstruction technique DLP: 480 mGy-cm FINDINGS: LUNG BASES: see chest CT report same day? LIVER, GALLBLADDER, AND BILIARY TREE: The liver is normal in size, shape, and attenuation. No focal hepatic lesion or biliary ductal dilatation is present. The gallbladder is unremarkable with no evidence of radiopaque gallstones, gallbladder wall thickening, or obvious pericholecystic inflammatory changes.? PANCREAS: Unremarkable.? SPLEEN: Unremarkable.? ADRENAL GLANDS: Unremarkable.? KIDNEYS AND URETERS: The kidneys are normal in size, shape, and attenuation. No hydronephrosis, hydroureter, or calculi seen. No perinephric stranding. ? BLADDER: Unremarkable.? GASTROINTESTINAL TRACT: The small and large bowel are unremarkable. The appendix is not seen but there is no evidence of appendicitis..? ABDOMINAL WALL: No significant hernia is appreciated.? LYMPH NODES: No retroperitoneal lymphadenopathy. VASCULAR: Unremarkable. PELVIC VISCERA: Normal retroverted uterus. An abnormal adnexal mass or free intraperitoneal fluid is not seen.? OSSEOUS STRUCTURES: Degenerative changes are seen at L5-S1 with vacuum phenomena.? CT/CT abdomen pelvis w IV con IMPRESSION: No significant abnormality. A cause for the patient's hypotension has not been found. ? Fleischner guidelines were followed. Dictated By: Baltazar Grajeda MD Signed By: Electronically signed by Baltazar Grajeda MD 09/27/22 [id number] EXAMINATION: CT ANGIOGRAM OF THE CHEST WITH AND WITHOUT CONTRAST (CT PULMONARY ANGIOGRAM FOR PE) CLINICAL INFORMATION: Hypotension COMPARISON: None? TECHNIQUE: Prior to contrast administration, noncontrast localization images were obtained. ? Subsequently, multidetector volumetric imaging was performed from the thoracic inlet to below the diaphragms following the administration of 95 mL Omnipaque 350 intravenous contrast. No contrast reaction reported Sagittal, coronal, and MIP oblique sagittal reformatted images were obtained on the CT workstation, uploaded to PACS, and reviewed. This CT examination was performed using dose optimization techniques as appropriate, variously including the following: *Automated exposure control *Adjustment of mA and/or kV according to patient size (this includes techniques or standardized protocols for targeted exams where dose is matched to indication/reason for exam; i.e. extremities or head) *Use of iterative reconstruction technique Total exam dose-length product 1365 mGy-cm FINDINGS: QUALITY OF STUDY/CONTRAST BOLUS: Satisfactory. PULMONARY ARTERIES: No central or segmental pulmonary emboli.? THORACIC AORTA: No aneurysm. Opacification is not adequate for evaluation of dissection. LUNG: No focal consolidation, nodules or masses. Some mild dependent atelectasis/groundglass change is present. PLEURA: No pleural effusion or pneumothorax. MEDIASTINUM: Normal heart size.? No pericardial effusion.? No hilar or mediastinal lymphadenopathy.? No evidence of septal bowing or right heart strain. CORONARY ARTERY CALCIFICATION: None visualized on this study. CHEST WALL/AXILLA: Bilateral breast implants are present. No axillary or internal mammary lymphadenopathy. OSSEOUS STRUCTURES: No acute or suspicious osseous abnormality.? UPPER ABDOMEN: See report CT abdomen same day? No reflux of contrast into the hepatic veins to suggest elevated right heart pressures. CT/CT angio chest PE protocol IMPRESSION: No evidence of pulmonary emboli. VTE: negative. Dictated By: Baltazar Grajeda MD Signed By: Electronically signed by Baltazar Grajeda MD 09/27/221642 EXAMINATION: CT HEAD WITHOUT CONTRAST CLINICAL INFORMATION: Slurred speech? COMPARISON: Head CT 05/27/2022 TECHNIQUE: Imaging was performed from the skull base to vertex without intravenous administration of contrast. This CT examination was performed using dose optimization techniques as appropriate, variously including the following: *Automated exposure control *Adjustment of mA and/or kV according to patient size (this includes techniques or standardized protocols for targeted exams where dose is matched to indication/reason for exam; i.e. extremities or head) *Use of iterative reconstruction technique Total exam dose length product: 664 mGy-cm FINDINGS: No intra or extra-axial fluid collection, hemorrhage, or mass. No ventriculomegaly. No midline shift or herniation. Basal cisterns are patent. Billingsley-white matter differentiation is maintained. No territorial encephalomalacia. ?No significant volume loss. There is no abnormal attenuation within the brain parenchyma. No calvarial fracture or soft tissue abnormality. ?The mastoid air cells and visualized portions of the paranasal sinuses are well aerated. CT/CT head/brain wo IV con IMPRESSION: 1. No acute intracranial pathology. No acute edematous territorial infarct or intracranial hemorrhage identified. Dictated By: Álvaro Tiwari Signed By: Electronically signed by Álvaro?Te 09/27/221641 <GILMA Odom - Last Filed: 09/27/22 18:38> Critical Care Time Critical Care Time Critical Care Time: Yes <GILMA Odom - Last Filed: 09/27/22 18:38> Total Critical Care Time: 30 <GILMA Odom - Last Filed: 09/27/22 18:38> Attestation: I spent 30 minutes of Critical Care Time with this patient. This does not include time spent on separately reported billable procedures. <GILMA Odom - Last Filed: 09/27/22 18:38> Discharge Plan Discharge Clinical Impression: Bipolar disorder <GILMA Odom - Last Filed: 09/27/22 18:38> Patient Disposition: Still a Patient <GILMA Odom - Last Filed: 09/27/22 18:38> Prescriptions: No Action acetaminophen 325 mg Tablet 650 mg PO Q4H PRN (Reason: Pain) tizanidine 4 mg tablet 4 tab PO BEDTIME benztropine 1 mg tablet 1 tab PO BID olanzapine 10 mg tablet 3 tab PO BEDTIME trazodone 100 mg tablet 2 tab PO BEDTIME mirtazapine 15 mg tablet 3 tab PO BEDTIME diazepam 2 mg tablet 1 tab PO BID PRN (Reason: Anxiety) simethicone 125 mg Tablet 125 mg PO TIDAC zolpidem 10 mg tablet 1 tab PO BEDTIME PRN (Reason: Insomnia) thiamine HCl (vitamin B1) 100 mg tablet 2 tab PO DAILY pyridoxine (vitamin B6) 50 mg tablet 1 tab PO DAILY folic acid 1 mg tablet 1 tab PO DAILY hydroxyzine pamoate 25 mg capsule 1 cap PO DAILY PRN (Reason: Sleep) aripiprazole [Abilify] 2 mg tablet 1 tab PO DAILY divalproex 500 mg tablet extended release 24 hr 500 mg PO BID <GILMA Odom - Last Filed: 09/27/22 18:38> Interventions: Ollie-Suicide Risk Severity Scale Last Done: 09/28/22 06:07 <GILMA Odom - Last Filed: 09/27/22 18:38>
[2022-09-27] MEDS: LORazepam 1 MG TABLET 2 MG PO (08:19)
[2022-09-27 08:33] LABS: COVID-19 Test Positive (Negative); IDNOW Serial# BCCEAD1C
[2022-09-27 09:22] LABS: Appearance Urine Clear; Color Urine Yellow; Glucose Urine UA Negative (Negative); Leukocyte Esterase Urine Negative (Negative); Nitrite Urine Negative (Negative); Specific Gravity - Urine 1.025 (1.005-1.025); Urine Blood Negative (Negative); Urine Ketones 15 mg/dL (Negative); Urine Protein Trace mg/dL (Neg-Trace)
[2022-09-27 10:22] LABS: Amphetamine Screen Urine Not Detected (Not Detect); Barbiturates, Urine Not Detected (Not Detect); Benzodiazepines Screen Urine POSITIVE (Not Detect); Cannabinoid Screen Urine POSITIVE (Not Detect); Cocaine Screen Urine Not Detected (Not Detect); Fentanyl, urine Not Detected (Not Detect); Opiate Screen Urine Not Detected (Not Detect); Phencyclidine Screen Urine Not Detected (Not Detect)
--- NOTE | 2022-09-27 11:15 | PHA.MEDREC ---
Addendum entered by Arnulfo Christina 09/27/22 11:40: When questioned on olanzapine 30mg dose, patient stated that they were talked to by someone in regards to that medication being ended soon , but patient was unsure. When asked on the diazepam 2mg, the patient stated that there were people that told her it was the cause of her feeling different and attributed to her not being able to be a functional member of society . When asked on mirtazapine 45mg, patient stated that they needed to take the medication, but haven't taken since 09/01/22. Patient hasn't taken olanzapine since 09/01/22 as well, but stated they they were taking both of them. Original Note: Pharmacy Consult ? Medication Reconciliation Pharmacy has completed the medication reconciliation. Spoke to patient and pharmacy to confirm medications.
[2022-09-27 11:52] LABS: Hematocrit 36.6 % (37.0-47.0); Hemoglobin 12.3 g/dl (12.0-16.0); Mean Corpuscular HGB Conc 33.6 g/dl (31.0-35.0); Mean Corpuscular Hemoglobin 29.9 pg (27.0-33.0); Mean Corpuscular Volume 88.8 fL (80.0-98.0); Mean Platelet Volume 9.7 fL (9.4-12.3); Platelet Count 359 X10*3/uL (160-400); Red Blood Count 4.12 X10*6/uL (4.20-5.50); Red Cell Distribution Width 13.3 % (11.0-16.0); White Blood Count 11.4 X10*3/uL (4.8-10.8)
[2022-09-27 12:02] LABS: Valproate 83.9 mcg/mL (50.0-100.0)
[2022-09-27 12:05] LABS: Alanine Aminotransferase 13 U/L (0-31); Albumin Level 3.9 g/dL (3.5-5.0); Alkaline Phosphatase 59 U/L (39-117); Anion Gap 9 (12-20); Aspartate Amino Transferase 14 U/L (5-31); Bilirubin Total 0.3 mg/dL (0.0-1.0); Blood Urea Nitrogen 10 mg/dL (9-16); Calcium 8.3 mg/dL (8.4-10.2); Carbon Dioxide 27 mmol/L (22-29); Chloride 107 mmol/L (96-108); Estimated Glomerular Filt Rate > 60; Glucose Random 137 mg/dL (60-115); Magnesium 1.7 mg/dL (1.6-2.6); Potassium 3.2 mmol/L (3.3-5.1); Sodium 140 mmol/L (135-145); Total Protein 5.8 g/dL (6.5-8.0)
--- NOTE | 2022-09-27 12:28 | PC.NURSE ---
Pt asleep, resting comfortably
[2022-09-27] MEDS: Potassium Chloride ER 20 MEQ TAB.ER.PRT 40 MEQ PO (14:12)
[2022-09-27 15:10] VITALS: BP 78/44; PULSE 69; RESP 18; O2SAT 99
--- NOTE | 2022-09-27 15:33 | PC.NURSE ---
Pt at up in bed, ate a few bites of her lunch and drank sylvia steve. Pt got up out of bed slurring her words, held onto the counter and lowered herself to the floor. BP taken multiple times showing the same result of 70s/40s. MD made aware and RN requested MD to come put eyes on pt. When MD came to see pt, repeat BP taken 78/44. Pt brought over to medical side of ED for further treatment and testing.
[2022-09-27 15:39] VITALS: BP 105/59
--- NOTE | 2022-09-27 15:53 | PC.NURSE ---
Patent from behavioral pod with low BP mentating AOx 4 some slurring of words large bore IV placed with IVF on pressure bag. Patient responsive to ivf fluids BP 105/59. Patient denies HI/SI . No distress noted Patient to Ct will CTM
[2022-09-27 16:09] LABS: Prothrombin Time 11.6 SEC (10.0-13.1)
[2022-09-27 16:12] LABS: Partial Thromboplastin Time 27.5 SEC (26.0-36.4)
[2022-09-27 16:15] LABS: Ammonia 47 umol/L (13-55)
[2022-09-27] MEDS: 0.9 % Sodium Chloride 1,000 ML 999 ML IV ×2 (16:15→17:17)
[2022-09-27] MEDS: iohexoL 350 MG/ML 100 ML INFUS..BTL IV (16:17)
[2022-09-27 16:27] LABS: Acetaminophen LAB < 17 mcg/mL (<30); Ethanol < 10 mg/dL; Salicylate < 5.0 mg/dL (15-30)
[2022-09-27 16:44] LABS: Troponin-I High Sensitivity < 3.5 ng/L (<3.5-17.0)
[2022-09-27 17:18] VITALS: BP 116/65; PULSE 50; RESP 14; O2SAT 98
--- NOTE | 2022-09-27 18:15 | PC.NURSE ---
Verified with MD patient is medically cleared will notify M5 will CTM
--- NOTE | 2022-09-27 18:44 | PC.NURSE ---
Report to Kaye TRINH
--- NOTE | 2022-09-27 18:53 | PC.NURSE ---
IV x 2 removed catheter tip intact patient to behavioral pod
[2022-09-27] MEDS: OLANZapine 10 MG TABLET 30 MG PO (21:03)
[2022-09-27] MEDS: TiZANidine HCL 4 MG TABLET 16 MG PO (21:04)
[2022-09-27] MEDS: traZODone HCL 100 MG TABLET 200 MG PO (21:04)
[2022-09-27] MEDS: Divalproex Sodium ER 500 MG TAB.ER.24H PO (21:05)
[2022-09-27] MEDS: Zolpidem Tartrate 5 MG TABLET 10 MG PO (21:05)
[2022-09-27] MEDS: Mirtazapine 15 MG TABLET 45 MG PO (21:05)
[2022-09-27] MEDS: Benztropine Mesylate 1 MG TABLET PO (21:05)
--- NOTE | 2022-09-27 21:11 | PC.NURSE ---
t/w assumed care of pt at 1845 when pt was moved from main ED to behavioral pod. safety checks from [id number] missing from chart. supervisor in charge rosy notified.
--- NOTE | 2022-09-28 | ECG_ITS ---
Test Reason : REPEAT/CHECK QT Blood Pressure : / mmHG Vent. Rate : 073 BPM Atrial Rate : 073 BPM P-R Int : 142 ms QRS Dur : 068 ms QT Int : 428 ms P-R-T Axes : 077 051 067 degrees QTc Int : 471 ms Normal sinus rhythm with sinus arrhythmia Nonspecific ST changes Borderline ECG When compared with ECG of 27-SEP-2022 09:20, Premature ventricular complexes are no longer Present Referred By: Rodney Weber Electronically Signed By:Payam Cuenca
[2022-09-28 02:34] VITALS: BP 122/63; PULSE 72; RESP 16; TEMP 36.9; O2SAT 98
--- NOTE | 2022-09-28 06:02 | PC.NURSE ---
Patient slept through the night, no distress observed/reported, behavior appropriate and non concerning, medication compliant, patient is COVID + follows quarantine protocol well, VSS, disposition per care team is section 12 inpatient bed search, will continue to monitor. will continue to monitor.
--- NOTE | 2022-09-28 07:27 | PC.NURSE ---
Report from GAYATHRI Powell, per report pt is an in-patient bedsearch. Pt is covid pos and remaining compliant with infection control measures. Calm and cooperative. NAD.
[2022-09-28 09:37] VITALS: BP 101/53; PULSE 52; TEMP 37.1; O2SAT 97
[2022-09-28] MEDS: ARIPiprazole 2 MG TABLET PO (09:39)
[2022-09-28] MEDS: Divalproex Sodium ER 500 MG TAB.ER.24H PO (09:39)
[2022-09-28] MEDS: Folic Acid 1 MG TABLET PO (09:39)
[2022-09-28] MEDS: Benztropine Mesylate 1 MG TABLET PO ×2 (09:40→20:58)
[2022-09-28] MEDS: Thiamine HCL 100 MG TABLET 200 MG PO (09:40)
--- OUTSIDE RECORDS SUMMARY | 2022-09-28 14:07 | XMS_ITS ---
:1970 Author Care Team Providers Name Role Phone JF STEINBERG MD Primary Care Provider [phone] OTHER + [phone] Allergies Code Code System Name Reaction Severity [...] Name Performed by ? 06/23/2014 CT, Head [facility] ter (Ct Scan) [address] [place], [place] [address] (Work Place) 03/25/2015 MRI, LS-spine [facility] ter (Imaging) [address] [place] [place] [address] (Work Place) 05/04/2015 Mammogram, Screening Information not axel ilable 05/25/2015 Electrocardiogram In-Office Order Internal Use Only DO Not Attach Compendium DO Not Attach Compendium Do Not Delete/merge [id number] Results Lab Results Date Name Specimen Result [...] ? ? Automated 0.0 #/100 ? Final [place] NRBC WBC's Reference Laboratori es: [address], [place] ? ? ? Abs. NRBC 0.0 K/mm3 ? Final [place] Reference Laboratori es: [address], [place] ? ? ? Neut # 4.4 K/mm3 (1.3-7.0) Final [place] K/mm3 Reference Laboratori es: [address], [place] ? ? ? Lymph # 2.8 K/mm3 (0.8-3.1) Final [facility] K/mm3 Reference Laboratori es: [address], [place] ? ? ? [place]# 0.6 K/mm3 (0.4-0.9) Final [place] K/mm3 Reference Laboratori es: [address], [place] ? ? ? Eo # 0.0 K/mm3 (0.0-0.4) Final [place] K/mm3 Reference Laboratori es: [address], [place] ? ? ? Baso # 0.1 K/mm3 (0.0-0.1) Final [place] K/mm3 Reference Laboratori es: [address], [place] ? ? ? Abs. Imm 0.0 K/mm3 ? Final [place] Gran Reference Laboratori es: [address], [place] ? ? ? Neut 55.8 % (44-76) % Final [facility] Reference Laboratori es: [address], [place] ? ? ? Lymph 35.9 % (15-43) % Final [facility] Reference Laboratori es: [address], [place] ? ? ? Monocyte 7.0 % (4.5-10.5) Final [place] [facility] % Reference Laboratori es: [address] 60 ? Final [facility] Non mL/min/1.73 Reference [place] M2 Laborato amber: [address], [place] ? ? ? Est GFR >60 ? Final [facility] mL/min/1.73 Refe rence [place] M2 Laborato amber: [address], [place] 06/26/2014 Erythrocyte ? No ? ? ? [facility] Sedimentatio observation Ben n Rate by recorded. [facility] Franky (Lab): [address], [place] 06/26/2014 ESR ? Sedimentat 5 mm/HR (0-20) Final [facility] (Erythrocyte ion Rate mm/HR Re ference Sedimentatio Labo ratories: n Rate), [address], [place] 06/26/2014 C-reactive ? C-reactive 0.1 mg/dL (0-0.5) Final [facility] Protein, Protein mg/dL Referen ce Quantitative Labo ratories: [address], [place] 06/26/2014 C-reactive ? No ? ? ? [facility] Protein, observation Fra nklin Qualitative, recorded. [facility] Serum (Lab): [address] [facility] 05/31/2014 Streptococcu ? Specimen throat swab ? Final [facility] s Group a, Description R eference Culture, Laborato amber: Throat [address], [place] ? ? ? Special none ? Final [facility] Requests Referenc e Laboratori es: [address], [place] ? ? ? Culture no group A ? Final [facility] kan beta Reference hemolytic Laborat ories: streptococci [address], [place] ? ? ? Report final ? Final [facility] Status 06/02/2014 Refere nce Laboratori es: [address], [place] 05/31/2014 Streptococcu ? No ? ? ? s Group a, observation Culture, recorded. Isolate 08/16/2012 Shoulder Min ? Result: ? ? Final [facility] 2 Views Left Refe rence Laboratori es: [address], [place] 01/30/2012 beta-HCG, ? HCG plus <1 mIU/mL (0-5) Norma l [place] Qualitative, Beta mIU/mL Refe rence Serum or [...] ? ? Automated 0.0 #/100 ? Final [place] [facility] NRBC WBC's Reference Laboratori es: [address] [...] Do Not Delete/yuri ge ? ? ? [place] ? ? ? In-Office Interval Order: Internal [...]
--- NOTE | 2022-09-28 15:44 | HO.PSYADMNOT ---
HPI Date of Service: 09/28/22 Chief Complaint: rebeca HPI Narrative: pt self-presented to [facility] ED requesting admission to psych unit. she reported several weeks without sleep, and attendant dysfunction. she stated that she now will have to have supervised visits with her son because of her recent state. she is asking for help with sleep. she is in agreement to restart regimen she left here on on 09/12. she agrees she leaves too early and states she is willing to stay longer this time to make sure she is sleeping well prior to discharge. she is pressured and tangential in presentation, but otherwise appears to have more insight than is usually the case when she arrives for Tx. Past Psychiatric History: -past meds: seroquel, haldol, wellbutrin, klonopin, ambien, celexa, -pt has had 5 previous inpatient stays at [facility] no h/o SA, SIB. OP: currently reconnecting with [facility] as she no longer sees Kylie Talley due to several no show appointment. Medical Evaluation Reviewed: Yes [facility] Medical History Anal fissure Anemia Anxiety Cervical radiculitis Cervical spinal cord compression Gonsalves hemangioma Chronic diarrhea Chronic narcotic use Chronic night sweats Chronic pain Contact dermatitis Cough Depression Dysconjugate gaze Dysuria Failed back surgical syndrome Fibromyalgia Gastric stress ulcer Gluteal pain Irritable bowel syndrome Left rib fracture Leg weakness Leukocytosis Low back pain Low ferritin Lumbar radiculitis Lumbar radiculopathy, chronic Medication side effects Mental status change resolved Muscle spasm Neck pain Panic attacks Paralysis Paresthesia of right upper limb 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 has 3 older brothers and 1 younger. Met developmental milestones as expected, graduated high school, bachelor's degree. 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 -no longer lives with her now former boyfriend, bryn, as the relationship has ended since last discharge 09/12/22. son lives with her brother. she reports she is about to receive a court order allowing only for supervised visits with her son. Substance History: h/o sedative/hypnotic abuse, cocaine abuse Trauma History: none divulged Diagnostics Vital Signs (24Hr): Vital Signs - 24 hr 09/27/22 17:18 09/28/22 02:34 09/28/22 09:37 Temperature 98.4 F 98.7 F Pulse Rate 50 72 52 Respiratory Rate 14 16 Blood Pressure 116/65 122/63 101/53 L Pulse Oximetry 98 98 97 Oxygen Delivery Method Room Air Room Air Room Air BMI result Body Mass Index 22.6 Labs 09/27/22 11:40 09/27/22 11:40 Labs: Laboratory Results - last 48 hr 09/27/22 09/27/22 09/27/22 08:06 09:12 09:12 WBC RBC Hgb Hct MCV MCH MCHC RDW Plt Count MPV Absolute Nucleated RBC Nucleated RBC % (auto) PT INR APTT Sodium Potassium Chloride Carbon Dioxide Anion Gap BUN Creatinine Estim Creat Clear Calc Estimated GFR Random Glucose Calcium Magnesium Total Bilirubin AST ALT Alkaline Phosphatase Ammonia Total Creatine Kinase Troponin I High Sens Total Protein Albumin Urine Color Yellow Urine Appearance Clear Urine pH 6.0 Ur Specific [place] 1.025 Urine Protein Trace Urine Glucose (UA) Negative Urine Ketones 15 Urine Blood Negative Urine Nitrite Negative Ur Leukocyte Esterase Negative Salicylates Urine Opiates Screen Not Detected Urine Fentanyl Screen Not Detected Acetaminophen Ur Barbiturates Screen Not Detected Valproic Acid Ur Phencyclidine Scrn Not Detected Ur Amphetamines Screen Not Detected U Benzodiazepines Scrn POSITIVE H Urine Cocaine Screen Not Detected U Marijuana (THC) Screen POSITIVE H Ethyl Alcohol COVID-19 (SALLY) Positive A COVID-19 Clin Com See Note 09/27/22 09/27/22 09/27/22 11:40 11:40 11:40 WBC 11.4 H RBC 4.12 L Hgb 12.3 Hct 36.6 L MCV 88.8 MCH 29.9 MCHC 33.6 RDW 13.3 Plt Count 359 MPV 9.7 Absolute Nucleated RBC 0.000 Nucleated RBC % (auto) 0.0 PT INR APTT Sodium 140 Potassium 3.2 L Chloride 107 Carbon Dioxide 27 Anion Gap 9 L BUN 10 Creatinine 0.78 Estim Creat Clear Calc 78.0 Estimated GFR > 60 Random Glucose 137 H Calcium 8.3 L D Magnesium 1.7 Total Bilirubin 0.3 AST 14 ALT 13 Alkaline Phosphatase 59 Ammonia Total Creatine Kinase Troponin I High Sens Total Protein 5.8 L Albumin 3.9 Urine Color Urine Appearance Urine pH Ur Specific [place] Urine Protein Urine Glucose (UA) Urine Ketones Urine Blood Urine Nitrite Ur Leukocyte Esterase Salicylates Urine Opiates Screen Urine Fentanyl Screen Acetaminophen Ur Barbiturates Screen Valproic Acid 83.9 Ur Phencyclidine Scrn Ur Amphetamines Screen U Benzodiazepines Scrn Urine Cocaine Screen U Marijuana (THC) Screen Ethyl Alcohol COVID-19 (SALLY) COVID-SimpliVT 09/27/22 09/27/22 09/27/22 11:40 15:48 15:48 WBC RBC Hgb Hct MCV MCH MCHC RDW Plt Count MPV Absolute Nucleated RBC Nucleated RBC % (auto) PT 11.6 INR 1.0 APTT 27.5 Sodium Potassium Chloride Carbon Dioxide Anion Gap BUN Creatinine Estim Creat Clear Calc Estimated GFR Random Glucose Calcium Magnesium Total Bilirubin AST ALT Alkaline Phosphatase Ammonia 47 Total Creatine Kinase 80 Troponin I High Sens Total Protein Albumin Urine Color Urine Appearance Urine pH Ur Specific [place] Urine Protein Urine Glucose (UA) Urine Ketones Urine Blood Urine Nitrite Ur Leukocyte Esterase Salicylates Urine Opiates Screen Urine Fentanyl Screen Acetaminophen Ur Barbiturates Screen Valproic Acid Ur Phencyclidine Scrn Ur Amphetamines Screen U Benzodiazepines Scrn Urine Cocaine Screen U Marijuana (THC) Screen Ethyl Alcohol COVID-19 (SALLY) COVID-19 [place] 09/27/22 09/27/22 15:48 16:09 WBC RBC Hgb Hct MCV MCH MCHC RDW Plt Count MPV Absolute Nucleated RBC Nucleated RBC % (auto) PT INR APTT Sodium Potassium Chloride Carbon Dioxide Anion Gap BUN Creatinine Estim Creat Clear Calc Estimated GFR Random Glucose Calcium Magnesium Total Bilirubin AST ALT Alkaline Phosphatase Ammonia Total Creatine Kinase Troponin I High Sens < 3.5 Total Protein Albumin Urine Color Urine Appearance Urine pH Ur Specific [place] Urine Protein Urine Glucose (UA) Urine Ketones Urine Blood Urine Nitrite Ur Leukocyte Esterase Salicylates < 5.0 L Urine Opiates Screen Urine Fentanyl Screen Acetaminophen < 17 Ur Barbiturates Screen Valproic Acid Ur Phencyclidine Scrn Ur Amphetamines Screen U Benzodiazepines Scrn Urine Cocaine Screen U Marijuana (THC) Screen Ethyl Alcohol < 10 COVID-19 (SALLY) COVID-19 Clin Com Imaging Radiology Impressions: ITS Impressions Abdomen/Pelvis CT 09/27/22 16:30 IMPRESSION: No significant abnormality. A cause for the patient's hypotension has not been found. Fleischner guidelines were followed. Chest CTA 09/27/22 16:30 IMPRESSION: No evidence of pulmonary emboli. VTE: negative. Head CT 09/27/22 16:30 IMPRESSION: 1. No acute intracranial pathology. No acute edematous territorial infarct or intracranial hemorrhage identified. Meds/Allergies Meds Home Medications Medication Instructions Recorded Confirmed Type acetaminophen 325 mg tablet 650 mg PO Q4H PRN Pain 07/14/22 09/27/22 History benztropine 1 mg tablet 1 tab PO BID 09/05/22 09/27/22 History mirtazapine 15 mg tablet 3 tab PO BEDTIME 09/05/22 09/27/22 History olanzapine 10 mg tablet 3 tab PO BEDTIME 09/05/22 09/27/22 History tizanidine 4 mg tablet 4 tab PO BEDTIME 09/05/22 09/27/22 History trazodone 100 mg tablet 2 tab PO BEDTIME 09/05/22 09/27/22 History aripiprazole 2 mg tablet (Abilify) 1 tab PO DAILY 09/27/22 09/27/22 History diazepam 2 mg tablet 1 tab PO BID PRN Anxiety 09/27/22 09/27/22 History divalproex 500 mg tablet,extended 500 mg PO BID 09/27/22 09/27/22 History release 24 hr folic acid 1 mg tablet 1 tab PO DAILY 09/27/22 09/27/22 History hydroxyzine pamoate 25 mg capsule 1 cap PO DAILY PRN Sleep 09/27/22 09/27/22 History pyridoxine (vitamin B6) 50 mg 1 tab PO DAILY 09/27/22 09/27/22 History tablet simethicone 125 mg tablet 125 mg PO TIDAC 09/27/22 09/27/22 History thiamine HCl (vitamin B1) 100 mg 2 tab PO DAILY 09/27/22 09/27/22 History tablet zolpidem 10 mg tablet 1 tab PO BEDTIME PRN Insomnia 09/27/22 09/27/22 History Allergies Allergies Allergy/AdvReac Type Severity Reaction Status Date / Time duloxetine [From CYMBALTA] Allergy Unknown Hallucinati Verified 09/27/22 08:43 ons morphine [MORPHINE] Allergy Unknown HALLUCINATI Verified 09/27/22 08:43 ONS Phenylpiperazine AdvReac Severe hallucinati Verified 09/27/22 08:43 Antidepressant ons Tetracyclic Antidepressants AdvReac Severe hallucinati Verified 09/27/22 08:43 ons fentanyl [FENTANYL] AdvReac Unknown Hallucinati Verified 09/27/22 08:43 ons Mental Status Exam Mental Status Exam Narrative: wearing hospital attire. cooperative. no PMA/PMR. speech pressured. thoughts tangential. affect hyper-intense, constricted, min-labile. mood i think i have posttraumatic stress disorder. denies SI/SIBI/HI. denies rodrigo AVH but says she feels like something's a little off. Assessment & Plan Assessment & Plan (1) Bipolar disorder: Status: Acute Code(s): F31.9 - Bipolar disorder, unspecified (2) Chronic pain: Status: Acute Code(s): G89.29 - Other chronic pain (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 she reports she has not seen her prescriber or had her meds changed since then. she endorses failure to take medications as prescribed in the interim. will attempt to get pt to have regular sleep as a first goal. since pt has been taking benzos even since she has not been prescribed them since prior to her admission in august (positive utox at this admission), place pt on valium 5 at HS and observe for sed/hyp withdrawal syndrome and give additional medication as indicated. Patient educated on: diagnosis, medication risk/benefits and substance abuse Reason for continued inpatient stay Substantial Risk for: harm to self, harm to others, inability to function and rapid decompensation Statement Statement: I have reviewed the history and physical and performed a pertinent examination on my patient. No changes have occurred unless specified. If the History and Physical was not performed prior to admission, the Hospitalist's service will be consulted for completing the admission physical. Time Spent With Patient Time: Total time managing care of this patient today _50___ minutes.
[2022-09-28 15:52] VITALS: BP 100/60; PULSE 93; RESP 18; O2SAT 98
--- NOTE | 2022-09-28 15:59 | MHC.CLN ---
NUTRITION CONSULT FOR PATIENT UNSURE OF RECENT WEIGHT LOSS. REVIEW OF WEIGHT HX SHOWS WEIGHT GAIN X ONE YEAR OF +15.7%. NO NEW NUTRITION INTERVENTIONS AT THIS TIME.
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
[2022-09-28] MEDS: Simethicone 80 MG TAB.CHEW 160 MG PO (17:44)
--- NOTE | 2022-09-28 17:58 | PC.NURSE ---
Patient offered and refused flu vaccine.
[2022-09-28] MEDS: Mirtazapine 15 MG TABLET 45 MG PO (20:56)
[2022-09-28] MEDS: TiZANidine HCL 4 MG TABLET 16 MG PO (20:56)
[2022-09-28] MEDS: traZODone HCL 100 MG TABLET 200 MG PO (20:57)
[2022-09-28] MEDS: OLANZapine 10 MG TABLET 30 MG PO (20:57)
[2022-09-28] MEDS: Divalproex Sodium ER 500 MG TAB.ER.24H 1000 MG PO (20:58)
[2022-09-28] MEDS: Melatonin 3 MG TABLET PO (20:58)
[2022-09-28] MEDS: hydrOXYzine HCL 25 MG TABLET PO (20:59)
[2022-09-28] MEDS: diazePAM 5 MG TABLET PO (20:59)
[2022-09-28 21:03] VITALS: BP 90/54; PULSE 78; TEMP 36.7; O2SAT 96
[2022-09-29 08:45] VITALS: BP 113/59; PULSE 87; RESP 18; TEMP 36.5; O2SAT 96
[2022-09-29] MEDS: Thiamine HCL 100 MG TABLET 200 MG PO (09:54)
[2022-09-29] MEDS: Folic Acid 1 MG TABLET PO (09:55)
[2022-09-29] MEDS: Benztropine Mesylate 1 MG TABLET PO ×2 (09:55→21:21)
[2022-09-29] MEDS: Simethicone 80 MG TAB.CHEW 160 MG PO ×3 (09:55→17:44)
[2022-09-29] MEDS: Pyridoxine HCl (Vitamin B6) 50 MG TABLET PO (09:56)
--- NOTE | 2022-09-29 14:00 | HO.PSYCHPN ---
Subjective Subjective Date of Service: 09/29/22 Reason For Visit: rebeca Subjective Notes: Conditional Voluntary Interim History: Settling into unit in COVID isolation room with room mate who is also COVID positive. Poor sleep, pressured speech, flight of ideas but pleasant. Reports difficult year as parents health, disc surgery that didnt go well, back pain and boyfriend left on 09/21/22. Would like to focus on restarting medications and diet. Denied feeling depressed, paranoid. No med concerns Medication Compliance: Yes Side effects from medications: No Review of Systems COVID positive, stable Review of Systems Review of Systems Yes all other systems are reviewed and are negative Mental Status Exam Mental Status Exam Narrative: Pleasant, hospital clothing, alert, engaged, no cognitive concerns, pressured speech and flight of ideas. Some elation and lability. No depression, SI, HI, psychosis. Insight fair Diagnostics Vital Signs (24Hr): Vital Signs - 24 hr 09/28/22 15:52 09/28/22 21:03 09/29/22 08:45 Temperature 98.1 F 97.7 F Pulse Rate 93 78 87 Respiratory Rate 18 18 Blood Pressure 100/60 90/54 L 113/59 L Pulse Oximetry 98 96 96 Oxygen Delivery Method Room Air Room Air Room Air BMI result Body Mass Index 22.6 Labs 09/27/22 11:40 09/27/22 11:40 Labs: Laboratory Results - last 48 hr 09/27/22 09/27/22 09/27/22 11:40 15:48 15:48 PT 11.6 INR 1.0 APTT 27.5 Ammonia 47 Total Creatine Kinase 80 Troponin I High Sens Salicylates Acetaminophen Ethyl Alcohol 09/27/22 09/27/22 15:48 16:09 PT INR APTT Ammonia Total Creatine Kinase Troponin I High Sens < 3.5 Salicylates < 5.0 L Acetaminophen < 17 Ethyl Alcohol < 10 Imaging Radiology Impressions: ITS Impressions Abdomen/Pelvis CT 09/27/22 16:30 IMPRESSION: No significant abnormality. A cause for the patient's hypotension has not been found. Fleischner guidelines were followed. Chest CTA 09/27/22 16:30 IMPRESSION: No evidence of pulmonary emboli. VTE: negative. Head CT 09/27/22 16:30 IMPRESSION: 1. No acute intracranial pathology. No acute edematous territorial infarct or intracranial hemorrhage identified. Medications Medications Current Medications Acetaminophen (Acetaminophen 325 Mg Tablet) 650 mg PO Q6H PRN PRN Reason: Headache/Pain Mild Scale (1-3) Al Hydroxide/Mg Hydroxide (Magnesium Hydrox/Alum Hydrox 30 Ml Oral.Susp) 30 ml PO Q6H PRN PRN Reason: Heartburn/Nausea Benztropine Mesylate (Benztropine Mesylate 1 Mg Tablet) 1 mg PO BID [facility] Last Admin: 09/29/22 09:55 Dose: 1 mg Diazepam (Diazepam 5 Mg Tablet) 5 mg PO BEDTIME [facility] Last Admin: 09/28/22 20:59 Dose: 5 mg Divalproex Sodium (Divalproex Sodium Er 500 Mg Tab.Er.24h) 1,000 mg PO BEDTIME [facility] Last Admin: 09/28/22 20:58 Dose: 1,000 mg Folic Acid (Folic Acid 1 Mg Tablet) 1 mg PO DAILY [facility] Last Admin: 09/29/22 09:55 Dose: 1 mg Hydroxyzine HCl (Hydroxyzine Hcl 25 Mg Tablet) 25 mg PO Q6H PRN PRN Reason: Anxiety Last Admin: 09/28/22 20:59 Dose: 25 mg Magnesium Hydroxide (Milk Of Magnesia 30 Ml Oral.Susp) 30 ml PO DAILY PRN PRN Reason: Constipation Melatonin (Melatonin 3 Mg Tablet) 3 mg PO BEDTIME [facility] Last Admin: 09/28/22 20:58 Dose: 3 mg Mirtazapine (Mirtazapine 15 Mg Tablet) 45 mg PO BEDTIME [facility] Last Admin: 09/28/22 20:56 Dose: 45 mg Nicotine Polacrilex (Nicotine Polacrilex 2 Mg Gum) 4 mg BUCCAL Q2H PRN PRN Reason: Nicotine Cravings Olanzapine (Olanzapine 10 Mg Tablet) 30 mg PO BEDTIME [facility] Last Admin: 09/28/22 20:57 Dose: 30 mg Pyridoxine HCl (Pyridoxine Hcl (Vitamin B6) 50 Mg Tablet) 50 mg PO DAILY [facility] Last Admin: 09/29/22 09:56 Dose: 50 mg Simethicone (Simethicone 80 Mg Tab.Chew) 160 mg PO TIDWM [facility] Last Admin: 09/29/22 11:57 Dose: 160 mg Thiamine HCl (Thiamine Hcl 100 Mg Tablet) 200 mg PO DAILY [facility] Last Admin: 09/29/22 09:54 Dose: 200 mg Tizanidine HCl (Tizanidine Hcl 4 Mg Tablet) 16 mg PO BEDTIME [facility] Last Admin: 09/28/22 20:56 Dose: 16 mg Trazodone HCl (Trazodone Hcl 100 Mg Tablet) 200 mg PO BEDTIME [facility] Last Admin: 09/28/22 20:57 Dose: 200 mg Allergies Allergies Allergy/AdvReac Type Severity Reaction Status Date / Time duloxetine [From CYMBALTA] Allergy Unknown Hallucinati Verified 09/27/22 08:43 ons morphine [MORPHINE] Allergy Unknown HALLUCINATI Verified 09/27/22 08:43 ONS Phenylpiperazine AdvReac Severe hallucinati Verified 09/27/22 08:43 Antidepressant ons Tetracyclic Antidepressants AdvReac Severe hallucinati Verified 09/27/22 08:43 ons fentanyl [FENTANYL] AdvReac Unknown Hallucinati Verified 09/27/22 08:43 ons Assessment & Plan Assessment & Plan (1) Bipolar disorder: Status: Acute Code(s): F31.9 - Bipolar disorder, unspecified (2) Chronic pain: Status: Acute Code(s): G89.29 - Other chronic pain (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 she reports she has not seen her prescriber or had her meds changed since then. she endorses failure to take medications as prescribed in the interim. will attempt to get pt to have regular sleep as a first goal. since pt has been taking benzos even since she has not been prescribed them since prior to her admission in august (positive utox at this admission), place pt on valium 5 at and observe for sed/hyp withdrawal syndrome and give additional medication as indicated. 09/29: no changes Patient educated on: medication risk/benefits Informed Consent: understands Reason for contiued inpatient stay Substantial Risk for: inability to function Time Spent With Patient Time: Total time managing care of this patient today ____ minutes.
[2022-09-29] MEDS: Acetaminophen 325 MG TABLET 650 MG PO (20:23)
[2022-09-29 21:19] VITALS: BP 124/69; PULSE 76; TEMP 36.8; O2SAT 96
[2022-09-29] MEDS: traZODone HCL 100 MG TABLET 200 MG PO (21:20)
[2022-09-29] MEDS: TiZANidine HCL 4 MG TABLET 16 MG PO (21:20)
[2022-09-29] MEDS: Mirtazapine 15 MG TABLET 45 MG PO (21:21)
[2022-09-29] MEDS: diazePAM 5 MG TABLET PO (21:21)
[2022-09-29] MEDS: Divalproex Sodium ER 500 MG TAB.ER.24H 1000 MG PO (21:21)
[2022-09-29] MEDS: OLANZapine 10 MG TABLET 30 MG PO (21:21)
[2022-09-29] MEDS: Melatonin 3 MG TABLET PO (21:22)
[2022-09-30 08:30] VITALS: BP 137/71; PULSE 74; RESP 18; TEMP 36.4; O2SAT 97
[2022-09-30] MEDS: Simethicone 80 MG TAB.CHEW 160 MG PO ×3 (08:54→18:19)
[2022-09-30] MEDS: Pyridoxine HCl (Vitamin B6) 50 MG TABLET PO (08:54)
[2022-09-30] MEDS: Folic Acid 1 MG TABLET PO (08:55)
[2022-09-30] MEDS: Thiamine HCL 100 MG TABLET 200 MG PO (08:55)
[2022-09-30] MEDS: Benztropine Mesylate 1 MG TABLET PO ×2 (08:55→21:18)
--- NOTE | 2022-09-30 11:48 | HO.PSYCHPN ---
Subjective Subjective Date of Service: 09/30/22 Reason For Visit: rebeca Interim History: COVID isolation room with room mate who is also COVID positive. Sleep continues to be poor with disoragnized speech, flight of ideas and pressured speech. With technical writer and editor, reported wanting to get rest and no concerns and did not want to engage further. Medication Compliance: Yes Side effects from medications: No Attending Groups: No (covid positive) Review of Systems Acute medical concerns: No Review of Systems Review of Systems asymptomatic covid positive Yes all other systems are reviewed and are negative Mental Status Exam Mental Status Exam Narrative: Pleasant, hospital clothing, alert on wakening, no cognitive concerns, limited engagement. No evidence of depression, SI, HI, psychosis. [facility] Diagnostics Vital Signs (24Hr): Vital Signs - 24 hr 09/29/22 21:19 09/30/22 08:30 Temperature 98.2 F 97.6 F Pulse Rate 76 74 Respiratory Rate 18 Blood Pressure 124/69 137/71 Pulse Oximetry 96 97 Oxygen Delivery Method Room Air Room Air BMI result Body Mass Index 22.6 Labs 09/27/22 11:40 09/27/22 11:40 Imaging Radiology Impressions: ITS Impressions Abdomen/Pelvis CT 09/27/22 16:30 IMPRESSION: No significant abnormality. A cause for the patient's hypotension has not been found. Fleischner guidelines were followed. Chest CTA 09/27/22 16:30 IMPRESSION: No evidence of pulmonary emboli. VTE: negative. Head CT 09/27/22 16:30 IMPRESSION: 1. No acute intracranial pathology. No acute edematous territorial infarct or intracranial hemorrhage identified. Medications Medications Current Medications Acetaminophen (Acetaminophen 325 Mg Tablet) 650 mg PO Q6H PRN PRN Reason: Headache/Pain Mild Scale (1-3) Last Admin: 09/29/22 20:23 Dose: 650 mg Al Hydroxide/Mg Hydroxide (Magnesium Hydrox/Alum Hydrox 30 Ml Oral.Susp) 30 ml PO Q6H PRN PRN Reason: Heartburn/Nausea Benztropine Mesylate (Benztropine Mesylate 1 Mg Tablet) 1 mg PO BID [facility] Last Admin: 09/30/22 08:55 Dose: 1 mg Diazepam (Diazepam 5 Mg Tablet) 5 mg PO BEDTIME [facility] Last Admin: 09/29/22 21:21 Dose: 5 mg Divalproex Sodium (Divalproex Sodium Er 500 Mg Tab.Er.24h) 1,000 mg PO BEDTIME [facility] Last Admin: 09/29/22 21:21 Dose: 1,000 mg Folic Acid (Folic Acid 1 Mg Tablet) 1 mg PO DAILY [facility] Last Admin: 09/30/22 08:55 Dose: 1 mg Hydroxyzine HCl (Hydroxyzine Hcl 25 Mg Tablet) 25 mg PO Q6H PRN PRN Reason: Anxiety Last Admin: 09/28/22 20:59 Dose: 25 mg Magnesium Hydroxide (Milk Of Magnesia 30 Ml Oral.Susp) 30 ml PO DAILY PRN PRN Reason: Constipation Melatonin (Melatonin 3 Mg Tablet) 3 mg PO BEDTIME [facility] Last Admin: 09/29/22 21:22 Dose: 3 mg Mirtazapine (Mirtazapine 15 Mg Tablet) 45 mg PO BEDTIME [facility] Last Admin: 09/29/22 21:21 Dose: 45 mg Nicotine Polacrilex (Nicotine Polacrilex 2 Mg Gum) 4 mg BUCCAL Q2H PRN PRN Reason: Nicotine Cravings Olanzapine (Olanzapine 10 Mg Tablet) 30 mg PO BEDTIME [facility] Last Admin: 09/29/22 21:21 Dose: 30 mg Pyridoxine HCl (Pyridoxine Hcl (Vitamin B6) 50 Mg Tablet) 50 mg PO DAILY [facility] Last Admin: 09/30/22 08:54 Dose: 50 mg Simethicone (Simethicone 80 Mg Tab.Chew) 160 mg PO TIDWM [facility] Last Admin: 09/30/22 08:54 Dose: 160 mg Thiamine HCl (Thiamine Hcl 100 Mg Tablet) 200 mg PO DAILY [facility] Last Admin: 09/30/22 08:55 Dose: 200 mg Tizanidine HCl (Tizanidine Hcl 4 Mg Tablet) 16 mg PO BEDTIME [facility] Last Admin: 09/29/22 21:20 Dose: 16 mg Trazodone HCl (Trazodone Hcl 100 Mg Tablet) 200 mg PO BEDTIME [facility] Last Admin: 09/29/22 21:20 Dose: 200 mg Allergies Allergies Allergy/AdvReac Type Severity Reaction Status Date / Time duloxetine [From CYMBALTA] Allergy Unknown Hallucinati Verified 09/27/22 08:43 ons morphine [MORPHINE] Allergy Unknown HALLUCINATI Verified 09/27/22 08:43 ONS Phenylpiperazine AdvReac Severe hallucinati Verified 09/27/22 08:43 Antidepressant ons Tetracyclic Antidepressants AdvReac Severe hallucinati Verified 09/27/22 08:43 ons fentanyl [FENTANYL] AdvReac Unknown Hallucinati Verified 09/27/22 08:43 ons Assessment & Plan Assessment & Plan (1) Bipolar disorder: Status: Acute Code(s): F31.9 - Bipolar disorder, unspecified (2) Chronic pain: Status: Acute Code(s): G89.29 - Other chronic pain (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 she reports she has not seen her prescriber or had her meds changed since then. she endorses failure to take medications as prescribed in the interim. will attempt to get pt to have regular sleep as a first goal. since pt has been taking benzos even since she has not been prescribed them since prior to her admission in august (positive utox at this admission), place pt on valium 5 at HS and observe for sed/hyp withdrawal syndrome and give additional medication as indicated. 09/29: no changes 09/30: no changes Reason for contiued inpatient stay Substantial Risk for: inability to function Time Spent With Patient Time: Total time managing care of this patient today ____ minutes.
[2022-09-30] MEDS: Melatonin 3 MG TABLET PO (21:18)
[2022-09-30] MEDS: Mirtazapine 15 MG TABLET 45 MG PO (21:18)
[2022-09-30] MEDS: TiZANidine HCL 4 MG TABLET 16 MG PO (21:18)
[2022-09-30] MEDS: diazePAM 5 MG TABLET PO (21:18)
[2022-09-30] MEDS: Divalproex Sodium ER 500 MG TAB.ER.24H 1000 MG PO (21:19)
[2022-09-30] MEDS: OLANZapine 10 MG TABLET 30 MG PO (21:19)
[2022-09-30] MEDS: traZODone HCL 100 MG TABLET 200 MG PO (21:19)
[2022-09-30 21:30] VITALS: BP 106/55; PULSE 73; RESP 16; TEMP 36.9; O2SAT 96
[2022-10-01 08:49] VITALS: BP 103/67; PULSE 72; RESP 18; TEMP 36.1; O2SAT 97
[2022-10-01] MEDS: Folic Acid 1 MG TABLET PO (08:57)
[2022-10-01] MEDS: Benztropine Mesylate 1 MG TABLET PO ×2 (08:57→20:58)
[2022-10-01] MEDS: Simethicone 80 MG TAB.CHEW 160 MG PO ×3 (08:57→18:37)
[2022-10-01] MEDS: Thiamine HCL 100 MG TABLET 200 MG PO (08:57)
[2022-10-01] MEDS: Pyridoxine HCl (Vitamin B6) 50 MG TABLET PO (08:57)
[2022-10-01] MEDS: hydrOXYzine HCL 25 MG TABLET PO (16:29)
--- NOTE | 2022-10-01 19:58 | HO.PSYCHPN ---
Subjective Subjective Date of Service: 10/01/22 Reason For Visit: rebeca Interim History: continues to report poor sleep. states it was a boring weekend, which she spent watching a rocket launch bcse there was nothing else on TV. agreeable to continue current mgmt. per staff, hyperverbal, circumstantial. no AVH. up at 0230 asking if she had any visitors coming to see her. Mental Status Exam Mental Status Exam Narrative: wearing hospital attire. cooperative. no PMA/PMR. speech nml rate, amount, latency, loudness. thoughts more linear and organized, still somewhat loose. affect normo-intense, constricted, non-labile. no SI/SIBI/HI/AVH expressed. Diagnostics Vital Signs (24Hr): Vital Signs - 24 hr 09/30/22 21:30 10/01/22 08:49 Temperature 98.5 F 96.9 F Pulse Rate 73 72 Respiratory Rate 16 18 Blood Pressure 106/55 L 103/67 Pulse Oximetry 96 97 Oxygen Delivery Method Room Air Room Air BMI result Body Mass Index 22.6 Labs 09/27/22 11:40 09/27/22 11:40 Imaging Radiology Impressions: ITS Impressions Abdomen/Pelvis CT 09/27/22 16:30 IMPRESSION: No significant abnormality. A cause for the patient's hypotension has not been found. Fleischner guidelines were followed. Chest CTA 09/27/22 16:30 IMPRESSION: No evidence of pulmonary emboli. VTE: negative. Head CT 09/27/22 16:30 IMPRESSION: 1. No acute intracranial pathology. No acute edematous territorial infarct or intracranial hemorrhage identified. Medications Medications Current Medications Acetaminophen (Acetaminophen 325 Mg Tablet) 650 mg PO Q6H PRN PRN Reason: Headache/Pain Mild Scale (1-3) Last Admin: 09/29/22 20:23 Dose: 650 mg Al Hydroxide/Mg Hydroxide (Magnesium Hydrox/Alum Hydrox 30 Ml Oral.Susp) 30 ml PO Q6H PRN PRN Reason: Heartburn/Nausea Benztropine Mesylate (Benztropine Mesylate 1 Mg Tablet) 1 mg PO BID [facility] Last Admin: 10/01/22 08:57 Dose: 1 mg Diazepam (Diazepam 5 Mg Tablet) 5 mg PO BEDTIME [facility] Last Admin: 09/30/22 21:18 Dose: 5 mg Divalproex Sodium (Divalproex Sodium Er 500 Mg Tab.Er.24h) 1,000 mg PO BEDTIME [facility] Last Admin: 09/30/22 21:19 Dose: 1,000 mg Folic Acid (Folic Acid 1 Mg Tablet) 1 mg PO DAILY [facility] Last Admin: 10/01/22 08:57 Dose: 1 mg Hydroxyzine HCl (Hydroxyzine Hcl 25 Mg Tablet) 25 mg PO Q6H PRN PRN Reason: Anxiety Last Admin: 10/01/22 16:29 Dose: 25 mg Magnesium Hydroxide (Milk Of Magnesia 30 Ml Oral.Susp) 30 ml PO DAILY PRN PRN Reason: Constipation Melatonin (Melatonin 3 Mg Tablet) 3 mg PO BEDTIME [facility] Last Admin: 09/30/22 21:18 Dose: 3 mg Mirtazapine (Mirtazapine 15 Mg Tablet) 45 mg PO BEDTIME [facility] Last Admin: 09/30/22 21:18 Dose: 45 mg Nicotine Polacrilex (Nicotine Polacrilex 2 Mg Gum) 4 mg BUCCAL Q2H PRN PRN Reason: Nicotine Cravings Olanzapine (Olanzapine 10 Mg Tablet) 30 mg PO BEDTIME [facility] Last Admin: 09/30/22 21:19 Dose: 30 mg Pyridoxine HCl (Pyridoxine Hcl (Vitamin B6) 50 Mg Tablet) 50 mg PO DAILY [facility] Last Admin: 10/01/22 08:57 Dose: 50 mg Simethicone (Simethicone 80 Mg Tab.Chew) 160 mg PO TIDWM [facility] Last Admin: 10/01/22 18:37 Dose: 160 mg Thiamine HCl (Thiamine Hcl 100 Mg Tablet) 200 mg PO DAILY [facility] Last Admin: 10/01/22 08:57 Dose: 200 mg Tizanidine HCl (Tizanidine Hcl 4 Mg Tablet) 16 mg PO BEDTIME [facility] Last Admin: 09/30/22 21:18 Dose: 16 mg Trazodone HCl (Trazodone Hcl 100 Mg Tablet) 200 mg PO BEDTIME [facility] Last Admin: 09/30/22 21:19 Dose: 200 mg Allergies Allergies Allergy/AdvReac Type Severity Reaction Status Date / Time duloxetine [From CYMBALTA] Allergy Unknown Hallucinati Verified 09/27/22 08:43 ons morphine [MORPHINE] Allergy Unknown HALLUCINATI Verified 09/27/22 08:43 ONS Phenylpiperazine AdvReac Severe hallucinati Verified 09/27/22 08:43 Antidepressant ons Tetracyclic Antidepressants AdvReac Severe hallucinati Verified 09/27/22 08:43 ons fentanyl [FENTANYL] AdvReac Unknown Hallucinati Verified 09/27/22 08:43 ons Assessment & Plan Assessment & Plan (1) Bipolar disorder: Status: Acute Code(s): F31.9 - Bipolar disorder, unspecified (2) Chronic pain: Status: Acute Code(s): G89.29 - Other chronic pain (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 she reports she has not seen her prescriber or had her meds changed since then. she endorses failure to take medications as prescribed in the interim. will attempt to get pt to have regular sleep as a first goal. since pt has been taking benzos even since she has not been prescribed them since prior to her admission in august (positive utox at this admission), place pt on valium 5 at and observe for sed/hyp withdrawal syndrome and give additional medication as indicated. 09/29: no changes 09/30: no changes 10/01: appearing much less pressured and more organized in thoughts than at admission. continue current mgmt. reports still not sleeping very well. Reason for contiued inpatient stay Substantial Risk for: inability to function and med/psych decompensation Time Spent With Patient Time: Total time managing care of this patient today __25__ minutes.
[2022-10-01 20:45] VITALS: BP 129/80; PULSE 92; RESP 16; TEMP 36.6; O2SAT 97
[2022-10-01] MEDS: TiZANidine HCL 4 MG TABLET 16 MG PO (20:58)
[2022-10-01] MEDS: Mirtazapine 15 MG TABLET 45 MG PO (20:58)
[2022-10-01] MEDS: traZODone HCL 100 MG TABLET 200 MG PO (20:58)
[2022-10-01] MEDS: diazePAM 5 MG TABLET PO (20:58)
[2022-10-01] MEDS: OLANZapine 10 MG TABLET 30 MG PO (20:58)
[2022-10-01] MEDS: Divalproex Sodium ER 500 MG TAB.ER.24H 1000 MG PO (20:58)
[2022-10-01] MEDS: Melatonin 3 MG TABLET PO (20:58)
[2022-10-02] MEDS: Pyridoxine HCl (Vitamin B6) 50 MG TABLET PO (09:14)
[2022-10-02] MEDS: Simethicone 80 MG TAB.CHEW 160 MG PO ×3 (09:14→18:05)
[2022-10-02] MEDS: Benztropine Mesylate 1 MG TABLET PO (09:14)
[2022-10-02] MEDS: Thiamine HCL 100 MG TABLET 200 MG PO (09:15)
[2022-10-02] MEDS: Folic Acid 1 MG TABLET PO (09:15)
[2022-10-02 09:25] VITALS: BP 110/69; PULSE 70; RESP 16; O2SAT 97
--- NOTE | 2022-10-02 15:59 | HO.PSYCHPN ---
Subjective Subjective Date of Service: 10/02/22 Reason For Visit: rebeca Interim History: word-finding difficulties, questionably clearer than yesterday. reports she slept well last night. discusses decreasing meds that may be exacerbating confusion, mentioning cogentin and tizanidine. pt extremely reluctant to decrease tizanidine, will change meds one at a time, starting with cogentin. per staff, napping, bored. delayed responses. vague responses. appeared fatigued. high depression and anxiety. slept all day. Mental Status Exam Mental Status Exam Narrative: wearing hospital attire. cooperative. no PMA/PMR. speech nml rate, amount, loudness. decr latency. thoughts more linear and organized, still somewhat loose. affect normo-intense, more flexible, non-labile. no SI/SIBI/HI/AVH expressed. some word-finding difficulties. Diagnostics Vital Signs (24Hr): Vital Signs - 24 hr 10/01/22 20:45 10/02/22 09:25 Temperature 97.9 F Pulse Rate 92 70 Respiratory Rate 16 16 Blood Pressure 129/80 110/69 Pulse Oximetry 97 97 Oxygen Delivery Method Room Air Room Air BMI result Body Mass Index 22.6 Labs 09/27/22 11:40 09/27/22 11:40 Imaging Radiology Impressions: ITS Impressions Abdomen/Pelvis CT 09/27/22 16:30 IMPRESSION: No significant abnormality. A cause for the patient's hypotension has not been found. Fleischner guidelines were followed. Chest CTA 09/27/22 16:30 IMPRESSION: No evidence of pulmonary emboli. VTE: negative. Head CT 09/27/22 16:30 IMPRESSION: 1. No acute intracranial pathology. No acute edematous territorial infarct or intracranial hemorrhage identified. Medications Medications Current Medications Acetaminophen (Acetaminophen 325 Mg Tablet) 650 mg PO Q6H PRN PRN Reason: Headache/Pain Mild Scale (1-3) Last Admin: 09/29/22 20:23 Dose: 650 mg Al Hydroxide/Mg Hydroxide (Magnesium Hydrox/Alum Hydrox 30 Ml Oral.Susp) 30 ml PO Q6H PRN PRN Reason: Heartburn/Nausea Benztropine Mesylate (Benztropine Mesylate 0.5 Mg Tablet) 0.5 mg PO BID [facility] Diazepam (Diazepam 2 Mg Tablet) 4 mg PO BEDTIME [facility] Divalproex Sodium (Divalproex Sodium Er 500 Mg Tab.Er.24h) 1,000 mg PO BEDTIME [facility] Last Admin: 10/01/22 20:58 Dose: 1,000 mg Folic Acid (Folic Acid 1 Mg Tablet) 1 mg PO DAILY [facility] Last Admin: 10/02/22 09:15 Dose: 1 mg Hydroxyzine HCl (Hydroxyzine Hcl 25 Mg Tablet) 25 mg PO Q6H PRN PRN Reason: Anxiety Last Admin: 10/01/22 16:29 Dose: 25 mg Magnesium Hydroxide (Milk Of Magnesia 30 Ml Oral.Susp) 30 ml PO DAILY PRN PRN Reason: Constipation Melatonin (Melatonin 3 Mg Tablet) 3 mg PO BEDTIME [facility] Last Admin: 10/01/22 20:58 Dose: 3 mg Mirtazapine (Mirtazapine 15 Mg Tablet) 45 mg PO BEDTIME [facility] Last Admin: 10/01/22 20:58 Dose: 45 mg Nicotine Polacrilex (Nicotine Polacrilex 2 Mg Gum) 4 mg BUCCAL Q2H PRN PRN Reason: Nicotine Cravings Olanzapine (Olanzapine 10 Mg Tablet) 30 mg PO BEDTIME [facility] Last Admin: 10/01/22 20:58 Dose: 30 mg Pyridoxine HCl (Pyridoxine Hcl (Vitamin B6) 50 Mg Tablet) 50 mg PO DAILY [facility] Last Admin: 10/02/22 09:14 Dose: 50 mg Simethicone (Simethicone 80 Mg Tab.Chew) 160 mg PO TIDWM [facility] Last Admin: 10/02/22 13:12 Dose: 160 mg Thiamine HCl (Thiamine Hcl 100 Mg Tablet) 200 mg PO DAILY [facility] Last Admin: 10/02/22 09:15 Dose: 200 mg Tizanidine HCl (Tizanidine Hcl 4 Mg Tablet) 16 mg PO BEDTIME [facility] Trazodone HCl (Trazodone Hcl 100 Mg Tablet) 200 mg PO BEDTIME [facility] Last Admin: 10/01/22 20:58 Dose: 200 mg Allergies Allergies Allergy/AdvReac Type Severity Reaction Status Date / Time duloxetine [From CYMBALTA] Allergy Unknown Hallucinati Verified 09/27/22 08:43 ons morphine [MORPHINE] Allergy Unknown HALLUCINATI Verified 09/27/22 08:43 ONS Phenylpiperazine AdvReac Severe hallucinati Verified 09/27/22 08:43 Antidepressant ons Tetracyclic Antidepressants AdvReac Severe hallucinati Verified 09/27/22 08:43 ons fentanyl [FENTANYL] AdvReac Unknown Hallucinati Verified 09/27/22 08:43 ons Assessment & Plan Assessment & Plan (1) Bipolar disorder: Status: Acute Code(s): F31.9 - Bipolar disorder, unspecified (2) Chronic pain: Status: Acute Code(s): G89.29 - Other chronic pain (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 she reports she has not seen her prescriber or had her meds changed since then. she endorses failure to take medications as prescribed in the interim. will attempt to get pt to have regular sleep as a first goal. since pt has been taking benzos even since she has not been prescribed them since prior to her admission in august (positive utox at this admission), place pt on valium 5 at HS and observe for sed/hyp withdrawal syndrome and give additional medication as indicated. 09/29: no changes 09/30: no changes 10/01: appearing much less pressured and more organized in thoughts than at admission. continue current mgmt. reports still not sleeping very well. 10/02: sleeping days and nights. begin to taper valium, dosing changed from 5 mg QHS to 4 mg QHS as of tonight. also taper cogentin, 1 BID, to 0.5 BID as of tonight. cogentin may be vestigial, will observe for EPS as it is tapered. a bit brighter and more engaged, but does appear to be experiencing derailment and word-finding difficulties. Patient educated on: medication risk/benefits and substance abuse Reason for contiued inpatient stay Substantial Risk for: inability to function and rapid decompensation Time Spent With Patient Time: Total time managing care of this patient today __25__ minutes.
[2022-10-02] MEDS: Mirtazapine 15 MG TABLET 45 MG PO (21:19)
[2022-10-02] MEDS: traZODone HCL 100 MG TABLET 200 MG PO (21:19)
[2022-10-02] MEDS: Melatonin 3 MG TABLET PO (21:20)
[2022-10-02] MEDS: TiZANidine HCL 4 MG TABLET 16 MG PO (21:20)
[2022-10-02] MEDS: OLANZapine 10 MG TABLET 30 MG PO (21:20)
[2022-10-02] MEDS: diazePAM 2 MG TABLET 4 MG PO (21:22)
[2022-10-02] MEDS: Benztropine Mesylate 0.5 MG TABLET PO (21:22)
[2022-10-02] MEDS: Divalproex Sodium ER 500 MG TAB.ER.24H 1000 MG PO (21:22)
[2022-10-02 21:23] VITALS: BP 131/75; PULSE 106; RESP 18; TEMP 36.8; O2SAT 97
[2022-10-03 08:33] VITALS: BP 120/56; PULSE 75; RESP 16; TEMP 36.6; O2SAT 97
[2022-10-03] MEDS: Benztropine Mesylate 0.5 MG TABLET PO (08:35)
[2022-10-03] MEDS: Simethicone 80 MG TAB.CHEW 160 MG PO ×3 (08:35→16:18)
[2022-10-03] MEDS: Thiamine HCL 100 MG TABLET 200 MG PO (08:35)
[2022-10-03] MEDS: Pyridoxine HCl (Vitamin B6) 50 MG TABLET PO (08:35)
[2022-10-03] MEDS: Folic Acid 1 MG TABLET PO (08:35)
[2022-10-03] MEDS: hydrOXYzine HCL 25 MG TABLET PO (12:18)
--- NOTE | 2022-10-03 15:46 | HO.PSYCHPN ---
Subjective Subjective Date of Service: 10/03/22 Reason For Visit: rebeca Interim History: calm, cooperative. more linear, logical. no thought blocking. MS appearing much more baseline than recent days. reports she slept well last night. doesn't want her meds changed appreciably. agreeable to CLEMENTINE valderrama, however, and does not comment on MD's advancement of valium taper. per staff, back pain. active and appropriate. eating well, sleeping poorly? Mental Status Exam Mental Status Exam Narrative: wearing street clothes. cooperative. no PMA/PMR. speech nml rate, amount, loudness. decr latency. thoughts linear and organized. affect normo-intense, flexible, non-labile. no SI/SIBI/HI/AVH expressed. Diagnostics Vital Signs (24Hr): Vital Signs - 24 hr 10/02/22 21:23 10/03/22 08:33 Temperature 98.3 F 97.8 F Pulse Rate 106 H 75 Respiratory Rate 18 16 Blood Pressure 131/75 120/56 L Pulse Oximetry 97 97 Oxygen Delivery Method Room Air Room Air BMI result Body Mass Index 22.6 Labs 09/27/22 11:40 09/27/22 11:40 Imaging Radiology Impressions: ITS Impressions Abdomen/Pelvis CT 09/27/22 16:30 IMPRESSION: No significant abnormality. A cause for the patient's hypotension has not been found. Fleischner guidelines were followed. Chest CTA 09/27/22 16:30 IMPRESSION: No evidence of pulmonary emboli. VTE: negative. Head CT 09/27/22 16:30 IMPRESSION: 1. No acute intracranial pathology. No acute edematous territorial infarct or intracranial hemorrhage identified. Medications Medications Current Medications Acetaminophen (Acetaminophen 325 Mg Tablet) 650 mg PO Q6H PRN PRN Reason: Headache/Pain Mild Scale (1-3) Last Admin: 09/29/22 20:23 Dose: 650 mg Al Hydroxide/Mg Hydroxide (Magnesium Hydrox/Alum Hydrox 30 Ml Oral.Susp) 30 ml PO Q6H PRN PRN Reason: Heartburn/Nausea Diazepam (Diazepam 2 Mg Tablet) 3 mg PO BEDTIME [facility] Divalproex Sodium (Divalproex Sodium Er 500 Mg Tab.Er.24h) 1,000 mg PO BEDTIME [facility] Last Admin: 10/02/22 21:22 Dose: 1,000 mg Folic Acid (Folic Acid 1 Mg Tablet) 1 mg PO DAILY [facility] Last Admin: 10/03/22 08:35 Dose: 1 mg Hydroxyzine HCl (Hydroxyzine Hcl 25 Mg Tablet) 25 mg PO Q6H PRN PRN Reason: Anxiety Last Admin: 10/03/22 12:18 Dose: 25 mg Magnesium Hydroxide (Milk Of Magnesia 30 Ml Oral.Susp) 30 ml PO DAILY PRN PRN Reason: Constipation Melatonin (Melatonin 3 Mg Tablet) 3 mg PO BEDTIME [facility] Last Admin: 10/02/22 21:20 Dose: 3 mg Mirtazapine (Mirtazapine 15 Mg Tablet) 45 mg PO BEDTIME [facility] Last Admin: 10/02/22 21:19 Dose: 45 mg Nicotine Polacrilex (Nicotine Polacrilex 2 Mg Gum) 4 mg BUCCAL Q2H PRN PRN Reason: Nicotine Cravings Olanzapine (Olanzapine 10 Mg Tablet) 30 mg PO BEDTIME [facility] Last Admin: 10/02/22 21:20 Dose: 30 mg Pyridoxine HCl (Pyridoxine Hcl (Vitamin B6) 50 Mg Tablet) 50 mg PO DAILY [facility] Last Admin: 10/03/22 08:35 Dose: 50 mg Simethicone (Simethicone 80 Mg Tab.Chew) 160 mg PO TIDWM [facility] Last Admin: 10/03/22 12:14 Dose: 160 mg Thiamine HCl (Thiamine Hcl 100 Mg Tablet) 200 mg PO DAILY [facility] Last Admin: 10/03/22 08:35 Dose: 200 mg Tizanidine HCl (Tizanidine Hcl 4 Mg Tablet) 16 mg PO BEDTIME [facility] Last Admin: 10/02/22 21:20 Dose: 16 mg Trazodone HCl (Trazodone Hcl 100 Mg Tablet) 200 mg PO BEDTIME [facility] Last Admin: 10/02/22 21:19 Dose: 200 mg Allergies Allergies Allergy/AdvReac Type Severity Reaction Status Date / Time duloxetine [From CYMBALTA] Allergy Unknown Hallucinati Verified 09/27/22 08:43 ons morphine [MORPHINE] Allergy Unknown HALLUCINATI Verified 09/27/22 08:43 ONS Phenylpiperazine AdvReac Severe hallucinati Verified 09/27/22 08:43 Antidepressant ons Tetracyclic Antidepressants AdvReac Severe hallucinati Verified 09/27/22 08:43 ons fentanyl [FENTANYL] AdvReac Unknown Hallucinati Verified 09/27/22 08:43 ons Assessment & Plan Assessment & Plan (1) Bipolar disorder: Status: Acute Code(s): F31.9 - Bipolar disorder, unspecified (2) Chronic pain: Status: Acute Code(s): G89.29 - Other chronic pain (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 she reports she has not seen her prescriber or had her meds changed since then. she endorses failure to take medications as prescribed in the interim. will attempt to get pt to have regular sleep as a first goal. since pt has been taking benzos even since she has not been prescribed them since prior to her admission in august (positive utox at this admission), place pt on valium 5 at HS and observe for sed/hyp withdrawal syndrome and give additional medication as indicated. 09/29: no changes 09/30: no changes 10/01: appearing much less pressured and more organized in thoughts than at admission. continue current mgmt. reports still not sleeping very well. 10/02: sleeping days and nights. begin to taper valium, dosing changed from 5 mg QHS to 4 mg QHS as of tonight. also taper cogentin, 1 BID, to 0.5 BID as of tonight. cogentin may be vestigial, will observe for EPS as it is tapered. a bit brighter and more engaged, but does appear to be experiencing derailment and word-finding difficulties. 10/03: cognition now appears essentially baseline. DC lavelle. taper valium to 3 mg QHS. reports she slept well last night. check VPA level and associated labs tonight. Reason for contiued inpatient stay Substantial Risk for: inability to function and rapid decompensation Time Spent With Patient Time: Total time managing care of this patient today _25___ minutes.
[2022-10-03 20:20] LABS: MANUAL DIFF FLAG NO
[2022-10-03 20:22] LABS: Basophils Absolute Auto 0.1 X10*3/uL (0.0-0.2); Basophils Percent Auto 1.5 % (0-2); Hematocrit 38.9 % (37.0-47.0); Hemoglobin 12.8 g/dl (12.0-16.0); Imm Gran Abs Auto 0.02 X10*3/uL (0.00-0.03); Imm Gran Pct Auto 0.2 % (0.0-0.4); Lymphocytes Absolute Auto 2.6 X10*3/uL (1.2-4.9); Lymphocytes Percent Auto 31.5 % (20-40); Mean Corpuscular HGB Conc 32.9 g/dl (31.0-35.0); Mean Corpuscular Hemoglobin 29.4 pg (27.0-33.0); Mean Corpuscular Volume 89.4 fL (80.0-98.0); Mean Platelet Volume 9.3 fL (9.4-12.3); Monocytes Absolute Auto 0.6 X10*3/uL (0.1-1.2); Monocytes Percent Auto 7.6 % (2-11); Neutrophils Absolute Auto 4.9 x10*3/uL (2.0-8.3); Neutrophils Percent Auto 59.2 % (45-73); Platelet Count 423 X10*3/uL (160-400); Red Blood Count 4.35 X10*6/uL (4.20-5.50); Red Cell Distribution Width 13.9 % (11.0-16.0); White Blood Count 8.2 X10*3/uL (4.8-10.8)
[2022-10-03 20:49] LABS: Ammonia 49 umol/L (13-55)
[2022-10-03] MEDS: TiZANidine HCL 4 MG TABLET 16 MG PO (20:53)
[2022-10-03] MEDS: Divalproex Sodium ER 500 MG TAB.ER.24H 1000 MG PO (20:53)
[2022-10-03] MEDS: Mirtazapine 15 MG TABLET 45 MG PO (20:53)
[2022-10-03] MEDS: traZODone HCL 100 MG TABLET 200 MG PO (20:53)
[2022-10-03] MEDS: Melatonin 3 MG TABLET PO (20:54)
[2022-10-03] MEDS: OLANZapine 10 MG TABLET 30 MG PO (20:54)
[2022-10-03] MEDS: diazePAM 2 MG TABLET 3 MG PO (20:54)
[2022-10-03 21:00] VITALS: BP 113/73; PULSE 103; TEMP 36.2; O2SAT 96
[2022-10-03 21:13] LABS: Alanine Aminotransferase 8 U/L (0-31); Albumin Level 4.3 g/dL (3.5-5.0); Alkaline Phosphatase 60 U/L (39-117); Anion Gap 14 (12-20); Aspartate Amino Transferase 11 U/L (5-31); Bilirubin Direct < 0.2 mg/dL (0.0-0.5); Bilirubin Total 0.2 mg/dL (0.0-1.0); Blood Urea Nitrogen 18 mg/dL (9-16); Calcium 9.1 mg/dL (8.4-10.2); Carbon Dioxide 25 mmol/L (22-29); Chloride 104 mmol/L (96-108); Creatinine Clr Calc Pharmacy 77.1; Estimated Glomerular Filt Rate > 60; Glucose Random 116 mg/dL (60-115); Potassium 4.2 mmol/L (3.3-5.1); Sodium 139 mmol/L (135-145); Total Protein 6.3 g/dL (6.5-8.0)
[2022-10-04 07:00] VITALS: BMI 22.9
[2022-10-04 08:25] VITALS: BP 151/70; PULSE 72; RESP 18; TEMP 36.7; O2SAT 99
[2022-10-04] MEDS: Folic Acid 1 MG TABLET PO (09:01)
[2022-10-04] MEDS: Simethicone 80 MG TAB.CHEW 160 MG PO (09:01)
[2022-10-04] MEDS: Thiamine HCL 100 MG TABLET 200 MG PO (09:02)
[2022-10-04] MEDS: Pyridoxine HCl (Vitamin B6) 50 MG TABLET PO (09:02)
[2022-10-04] MEDS: Simethicone 80 MG TAB.CHEW 240 MG PO ×2 (12:43→17:55)
[2022-10-04] MEDS: hydrOXYzine HCL 25 MG TABLET PO ×2 (13:09→20:41)
--- NOTE | 2022-10-04 14:04 | HO.PSYCHPN ---
Subjective Subjective Date of Service: 10/04/22 Reason For Visit: rebeca Interim History: ever more linear, logical, organized, and calm. asking for discharge tomorrow. seen with CHANDLER hammond, conversation had about the wisdom of that decision in light of her historian or repeated brief stays. she agrees to reconsider and will discuss again tomorrow. informs her of next step in valium taper, to 2 mg tonight. per staff, anx/dep, racing thoughts. back pain. sleeping well, eating well. VPA 96. Mental Status Exam Mental Status Exam Narrative: wearing street clothes. cooperative. no PMA/PMR. speech nml rate, amount, loudness, latency. thoughts linear and organized. affect normo-intense, flexible, non-labile. no SI/SIBI/HI/AVH expressed. Diagnostics Vital Signs (24Hr): Vital Signs - 24 hr 10/03/22 21:00 10/04/22 08:25 Temperature 97.2 F 98.0 F Pulse Rate 103 H 72 Respiratory Rate 18 Blood Pressure 113/73 151/70 H Pulse Oximetry 96 99 Oxygen Delivery Method Room Air Room Air BMI result Body Mass Index 22.9 Labs 10/03/22 20:15 10/03/22 20:15 Labs: Laboratory Results - last 48 hr 10/03/22 10/03/22 10/03/22 20:15 20:15 20:15 WBC 8.2 RBC 4.35 Hgb 12.8 Hct 38.9 MCV 89.4 MCH 29.4 MCHC 32.9 RDW 13.9 Plt Count 423 H MPV 9.3 L Immature Gran % (Auto) 0.2 Neut % (Auto) 59.2 Lymph % (Auto) 31.5 Kerr % (Auto) 7.6 Eos % (Auto) 0.0 Baso % (Auto) 1.5 Lymph # (Auto) 2.6 Kerr # (Auto) 0.6 Eos # (Auto) 0.0 Baso # (Auto) 0.1 Abs Immat Gran (auto) 0.02 Absolute Neuts (auto) 4.9 Absolute Nucleated RBC 0.000 Nucleated RBC % (auto) 0.0 Sodium 139 Potassium 4.2 D Chloride 104 Carbon Dioxide 25 Anion Gap 14 BUN 18 H Creatinine 0.79 Estim Creat Clear Calc 77.1 Estimated GFR > 60 Random Glucose 116 H Calcium 9.1 D Total Bilirubin 0.2 Direct Bilirubin < 0.2 AST 11 ALT 8 Alkaline Phosphatase 60 Ammonia 49 Total Protein 6.3 L Albumin 4.3 Valproic Acid 10/03/22 20:15 WBC RBC Hgb Hct MCV MCH MCHC RDW Plt Count MPV Immature Gran % (Auto) Neut % (Auto) Lymph % (Auto) Kerr % (Auto) Eos % (Auto) Baso % (Auto) Lymph # (Auto) Kerr # (Auto) Eos # (Auto) Baso # (Auto) Abs Immat Gran (auto) Absolute Neuts (auto) Absolute Nucleated RBC Nucleated RBC % (auto) Sodium Potassium Chloride Carbon Dioxide Anion Gap BUN Creatinine Estim Creat Clear Calc Estimated GFR Random Glucose Calcium Total Bilirubin Direct Bilirubin AST ALT Alkaline Phosphatase Ammonia Total Protein Albumin Valproic Acid 96.0 Imaging Radiology Impressions: ITS Impressions Abdomen/Pelvis CT 09/27/22 16:30 IMPRESSION: No significant abnormality. A cause for the patient's hypotension has not been found. Fleischner guidelines were followed. Chest CTA 09/27/22 16:30 IMPRESSION: No evidence of pulmonary emboli. VTE: negative. Head CT 09/27/22 16:30 IMPRESSION: 1. No acute intracranial pathology. No acute edematous territorial infarct or intracranial hemorrhage identified. Medications Medications Current Medications Acetaminophen (Acetaminophen 325 Mg Tablet) 650 mg PO Q6H PRN PRN Reason: Headache/Pain Mild Scale (1-3) Last Admin: 09/29/22 20:23 Dose: 650 mg Al Hydroxide/Mg Hydroxide (Magnesium Hydrox/Alum Hydrox 30 Ml Oral.Susp) 30 ml PO Q6H PRN PRN Reason: Heartburn/Nausea Diazepam (Diazepam 2 Mg Tablet) 2 mg PO BEDTIME [facility] Divalproex Sodium (Divalproex Sodium Er 500 Mg Tab.Er.24h) 1,000 mg PO BEDTIME [facility] Last Admin: 10/03/22 20:53 Dose: 1,000 mg Folic Acid (Folic Acid 1 Mg Tablet) 1 mg PO DAILY [facility] Last Admin: 10/04/22 09:01 Dose: 1 mg Hydroxyzine HCl (Hydroxyzine Hcl 25 Mg Tablet) 25 mg PO Q6H PRN PRN Reason: Anxiety Last Admin: 10/04/22 13:09 Dose: 25 mg Magnesium Hydroxide (Milk Of Magnesia 30 Ml Oral.Susp) 30 ml PO DAILY PRN PRN Reason: Constipation Melatonin (Melatonin 3 Mg Tablet) 3 mg PO BEDTIME [facility] Last Admin: 10/03/22 20:54 Dose: 3 mg Mirtazapine (Mirtazapine 15 Mg Tablet) 45 mg PO BEDTIME [facility] Last Admin: 10/03/22 20:53 Dose: 45 mg Nicotine Polacrilex (Nicotine Polacrilex 2 Mg Gum) 4 mg BUCCAL Q2H PRN PRN Reason: Nicotine Cravings Olanzapine (Olanzapine 10 Mg Tablet) 30 mg PO BEDTIME [facility] Last Admin: 10/03/22 20:54 Dose: 30 mg Pyridoxine HCl (Pyridoxine Hcl (Vitamin B6) 50 Mg Tablet) 50 mg PO DAILY [facility] Last Admin: 10/04/22 09:02 Dose: 50 mg Simethicone (Simethicone 80 Mg Tab.Chew) 240 mg PO TIDWM [facility] Last Admin: 10/04/22 12:43 Dose: 240 mg Thiamine HCl (Thiamine Hcl 100 Mg Tablet) 200 mg PO DAILY [facility] Last Admin: 10/04/22 09:02 Dose: 200 mg Tizanidine HCl (Tizanidine Hcl 4 Mg Tablet) 16 mg PO BEDTIME [facility] Last Admin: 10/03/22 20:53 Dose: 16 mg Trazodone HCl (Trazodone Hcl 100 Mg Tablet) 200 mg PO BEDTIME [facility] Last Admin: 10/03/22 20:53 Dose: 200 mg Allergies Allergies Allergy/AdvReac Type Severity Reaction Status Date / Time duloxetine [From CYMBALTA] Allergy Unknown Hallucinati Verified 09/27/22 08:43 ons morphine [MORPHINE] Allergy Unknown HALLUCINATI Verified 09/27/22 08:43 ONS Phenylpiperazine AdvReac Severe hallucinati Verified 09/27/22 08:43 Antidepressant ons Tetracyclic Antidepressants AdvReac Severe hallucinati Verified 09/27/22 08:43 ons fentanyl [FENTANYL] AdvReac Unknown Hallucinati Verified 09/27/22 08:43 ons Assessment & Plan Assessment & Plan (1) Bipolar disorder: Status: Acute Code(s): F31.9 - Bipolar disorder, unspecified (2) Chronic pain: Status: Acute Code(s): G89.29 - Other chronic pain (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 she reports she has not seen her prescriber or had her meds changed since then. she endorses failure to take medications as prescribed in the interim. will attempt to get pt to have regular sleep as a first goal. since pt has been taking benzos even since she has not been prescribed them since prior to her admission in august (positive utox at this admission), place pt on valium 5 at HS and observe for sed/hyp withdrawal syndrome and give additional medication as indicated. 09/29: no changes 09/30: no changes 10/01: appearing much less pressured and more organized in thoughts than at admission. continue current mgmt. reports still not sleeping very well. 10/02: sleeping days and nights. begin to taper valium, dosing changed from 5 mg QHS to 4 mg QHS as of tonight. also taper cogentin, 1 BID, to 0.5 BID as of tonight. cogentin may be vestigial, will observe for EPS as it is tapered. a bit brighter and more engaged, but does appear to be experiencing derailment and word-finding difficulties. 10/03: cognition now appears essentially baseline. DC cogentin. taper valium to 3 mg QHS. reports she slept well last night. check VPA level and associated labs tonight. 10/04: MS essentially at baseline. asking for DC tomorrow, advised against it. she will consider and let us know tomorrow. decrease HS valium to 2 mg. Patient educated on: medication risk/benefits and substance abuse Reason for contiued inpatient stay Substantial Risk for: inability to function and rapid decompensation Time Spent With Patient Time: Total time managing care of this patient today _35___ minutes.
[2022-10-04 20:29] VITALS: BP 141/91; PULSE 99; RESP 18; TEMP 36.6; O2SAT 99
[2022-10-04] MEDS: TiZANidine HCL 4 MG TABLET 16 MG PO (20:39)
[2022-10-04] MEDS: Acetaminophen 325 MG TABLET 650 MG PO (20:39)
[2022-10-04] MEDS: Mirtazapine 15 MG TABLET 45 MG PO (20:40)
[2022-10-04] MEDS: Melatonin 3 MG TABLET PO (20:41)
[2022-10-04] MEDS: diazePAM 2 MG TABLET PO (20:41)
[2022-10-04] MEDS: traZODone HCL 100 MG TABLET 200 MG PO (20:41)
[2022-10-04] MEDS: OLANZapine 10 MG TABLET 30 MG PO (20:41)
[2022-10-04] MEDS: Divalproex Sodium ER 500 MG TAB.ER.24H 1000 MG PO (20:41)
[2022-10-05 08:15] VITALS: BP 125/61; PULSE 84; RESP 18; TEMP 36.6; O2SAT 97
[2022-10-05] MEDS: Simethicone 80 MG TAB.CHEW 240 MG PO ×3 (09:48→17:40)
[2022-10-05] MEDS: Pyridoxine HCl (Vitamin B6) 50 MG TABLET PO (09:49)
[2022-10-05] MEDS: Folic Acid 1 MG TABLET PO (09:49)
[2022-10-05] MEDS: Thiamine HCL 100 MG TABLET 200 MG PO (09:50)
[2022-10-05] MEDS: Pregabalin 50 MG CAPSULE PO ×3 (12:07→19:55)
[2022-10-05] MEDS: hydrOXYzine HCL 25 MG TABLET PO ×2 (12:07→19:59)
[2022-10-05] MEDS: OLANZapine 2.5 MG TABLET PO (17:16)
--- NOTE | 2022-10-05 19:31 | HO.PSYCHPN ---
Subjective Subjective Date of Service: 10/05/22 Reason For Visit: rebeca Interim History: generally calm, seen with CHANDLER hammond. reporting poor sleep last night. 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 reports trials of NSAIDs, h/o opioids, trial on gabapentin ( didn't work and made my hair fall out ). agreeable to try lyrica - h/o 75 mg daily, will start at 50 TID this time. pt states she has trouble getting to sleep these days but once she is asleep she sleeps a bit better. agreeable to try prazosin to get her to sleep, as her VS are nml to elevated. she states she believes she has PTSD when MD explains the medication's use for sleep, in any case. titration described and prescribed for the w/e. per staff, c/o having ambien and valium DCed and taken away. Mental Status Exam Mental Status Exam Narrative: wearing street clothes. cooperative. no PMA/PMR. speech incr rate, amount. nml loudness, decr latency. thoughts linear and organized. affect normo-intense, constricted, non-labile. no SI/SIBI/HI/AVH expressed. Diagnostics Vital Signs (24Hr): Vital Signs - 24 hr 10/04/22 20:29 10/05/22 08:15 Temperature 97.9 F 97.9 F Pulse Rate 99 84 Respiratory Rate 18 18 Blood Pressure 141/91 H 125/61 Pulse Oximetry 99 97 Oxygen Delivery Method Room Air Room Air BMI result Body Mass Index 22.9 Labs 10/03/22 20:15 10/03/22 20:15 Labs: Laboratory Results - last 48 hr 10/03/22 10/03/22 10/03/22 20:15 20:15 20:15 WBC 8.2 RBC 4.35 Hgb 12.8 Hct 38.9 MCV 89.4 MCH 29.4 MCHC 32.9 RDW 13.9 Plt Count 423 H MPV 9.3 L Immature Gran % (Auto) 0.2 Neut % (Auto) 59.2 Lymph % (Auto) 31.5 [place] % (Auto) 7.6 Eos % (Auto) 0.0 Baso % (Auto) 1.5 Lymph # (Auto) 2.6 [place] # (Auto) 0.6 Eos # (Auto) 0.0 Baso # (Auto) 0.1 Abs Immat Gran (auto) 0.02 Absolute Neuts (auto) 4.9 Absolute Nucleated RBC 0.000 Nucleated RBC % (auto) 0.0 Sodium 139 Potassium 4.2 D Chloride 104 Carbon Dioxide 25 Anion Gap 14 BUN 18 H Creatinine 0.79 Estim Creat Clear Calc 77.1 Estimated GFR > 60 Random Glucose 116 H Calcium 9.1 D Total Bilirubin 0.2 Direct Bilirubin < 0.2 AST 11 ALT 8 Alkaline Phosphatase 60 Ammonia 49 Total Protein 6.3 L Albumin 4.3 Valproic Acid 10/03/22 20:15 WBC RBC Hgb Hct MCV MCH MCHC RDW Plt Count MPV Immature Gran % (Auto) Neut % (Auto) Lymph % (Auto) [place] % (Auto) Eos % (Auto) Baso % (Auto) Lymph # (Auto) [place] # (Auto) Eos # (Auto) Baso # (Auto) Abs Immat Gran (auto) Absolute Neuts (auto) Absolute Nucleated RBC Nucleated RBC % (auto) Sodium Potassium Chloride Carbon Dioxide Anion Gap BUN Creatinine Estim Creat Clear Calc Estimated GFR Random Glucose Calcium Total Bilirubin Direct Bilirubin AST ALT Alkaline Phosphatase Ammonia Total Protein Albumin Valproic Acid 96.0 Imaging Radiology Impressions: ITS Impressions Abdomen/Pelvis CT 09/27/22 16:30 IMPRESSION: No significant abnormality. A cause for the patient's hypotension has not been found. Fleischner guidelines were followed. Chest CTA 09/27/22 16:30 IMPRESSION: No evidence of pulmonary emboli. VTE: negative. Head CT 09/27/22 16:30 IMPRESSION: 1. No acute intracranial pathology. No acute edematous territorial infarct or intracranial hemorrhage identified. Medications Medications Current Medications Acetaminophen (Acetaminophen 325 Mg Tablet) 650 mg PO Q6H PRN PRN Reason: Headache/Pain Mild Scale (1-3) Last Admin: 10/04/22 20:39 Dose: 650 mg Al Hydroxide/Mg Hydroxide (Magnesium Hydrox/Alum Hydrox 30 Ml Oral.Susp) 30 ml PO Q6H PRN PRN Reason: Heartburn/Nausea Diazepam (Diazepam 2 Mg Tablet) 2 mg PO BEDTIME [facility] Last Admin: 10/04/22 20:41 Dose: 2 mg Divalproex Sodium (Divalproex Sodium Er 500 Mg Tab.Er.24h) 1,000 mg PO BEDTIME [facility] Last Admin: 10/04/22 20:41 Dose: 1,000 mg Folic Acid (Folic Acid 1 Mg Tablet) 1 mg PO DAILY [facility] Last Admin: 10/05/22 09:49 Dose: 1 mg Hydroxyzine HCl (Hydroxyzine Hcl 25 Mg Tablet) 25 mg PO Q6H PRN PRN Reason: Anxiety Last Admin: 10/05/22 12:07 Dose: 25 mg Magnesium Hydroxide (Milk Of Magnesia 30 Ml Oral.Susp) 30 ml PO DAILY PRN PRN Reason: Constipation Melatonin (Melatonin 3 Mg Tablet) 3 mg PO BEDTIME [facility] Last Admin: 10/04/22 20:41 Dose: 3 mg Mirtazapine (Mirtazapine 15 Mg Tablet) 45 mg PO BEDTIME [facility] Last Admin: 10/04/22 20:40 Dose: 45 mg Nicotine Polacrilex (Nicotine Polacrilex 2 Mg Gum) 4 mg BUCCAL Q2H PRN PRN Reason: Nicotine Cravings Olanzapine (Olanzapine 10 Mg Tablet) 30 mg PO BEDTIME [facility] Last Admin: 10/04/22 20:41 Dose: 30 mg Olanzapine (Olanzapine 2.5 Mg Tablet) 2.5 mg PO Q4H PRN PRN Reason: severe anxiety Last Admin: 10/05/22 17:16 Dose: 2.5 mg Prazosin HCl (Prazosin Hcl 1 Mg Capsule) 1 mg PO BEDTIME [facility]; Protocol Stop: 10/05/22 21:01 Prazosin HCl (Prazosin Hcl 1 Mg Capsule) 2 mg PO BEDTIME [facility]; Protocol Stop: 10/06/22 21:01 Prazosin HCl (Prazosin Hcl 1 Mg Capsule) 3 mg PO BEDTIME [facility]; Protocol Pregabalin (Pregabalin 50 Mg Capsule) 50 mg PO TID [facility] Last Admin: 10/05/22 16:55 Dose: 50 mg Pyridoxine HCl (Pyridoxine Hcl (Vitamin B6) 50 Mg Tablet) 50 mg PO DAILY [facility] Last Admin: 10/05/22 09:49 Dose: 50 mg Simethicone (Simethicone 80 Mg Tab.Chew) 240 mg PO TIDWM [facility] Last Admin: 10/05/22 17:40 Dose: 240 mg Thiamine HCl (Thiamine Hcl 100 Mg Tablet) 200 mg PO DAILY [facility] Last Admin: 10/05/22 09:50 Dose: 200 mg Tizanidine HCl (Tizanidine Hcl 4 Mg Tablet) 16 mg PO BEDTIME [facility] Last Admin: 10/04/22 20:39 Dose: 16 mg Trazodone HCl (Trazodone Hcl 100 Mg Tablet) 200 mg PO BEDTIME [facility] Last Admin: 10/04/22 20:41 Dose: 200 mg Allergies Allergies Allergy/AdvReac Type Severity Reaction Status Date / Time duloxetine [From CYMBALTA] Allergy Unknown Hallucinati Verified 09/27/22 08:43 ons morphine [MORPHINE] Allergy Unknown HALLUCINATI Verified 09/27/22 08:43 ONS Phenylpiperazine AdvReac Severe hallucinati Verified 09/27/22 08:43 Antidepressant ons Tetracyclic Antidepressants AdvReac Severe hallucinati Verified 09/27/22 08:43 ons fentanyl [FENTANYL] AdvReac Unknown Hallucinati Verified 09/27/22 08:43 ons Assessment & Plan Assessment & Plan (1) Bipolar disorder: Status: Acute Code(s): F31.9 - Bipolar disorder, unspecified (2) Chronic pain: Status: Acute Code(s): G89.29 - Other chronic pain (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 she reports she has not seen her prescriber or had her meds changed since then. she endorses failure to take medications as prescribed in the interim. will attempt to get pt to have regular sleep as a first goal. since pt has been taking benzos even since she has not been prescribed them since prior to her admission in august (positive utox at this admission), place pt on valium 5 at HS and observe for sed/hyp withdrawal syndrome and give additional medication as indicated. 09/29: no changes 09/30: no changes 10/01: appearing much less pressured and more organized in thoughts than at admission. continue current mgmt. reports still not sleeping very well. 10/02: sleeping days and nights. begin to taper valium, dosing changed from 5 mg QHS to 4 mg QHS as of tonight. also taper cogentin, 1 BID, to 0.5 BID as of tonight. cogentin may be vestigial, will observe for EPS as it is tapered. a bit brighter and more engaged, but does appear to be experiencing derailment and word-finding difficulties. 10/03: cognition now appears essentially baseline. DC lavelle. taper valium to 3 mg QHS. reports she slept well last night. check VPA level and associated labs tonight. 10/04: MS essentially at baseline. asking for DC tomorrow, advised against it. she will consider and let us know tomorrow. decrease HS valium to 2 mg. 10/05: c/o insomnia largely influenced by neuropathic pain today; anxiety. start prazosin 1 mg tonight and titrate to 3 mg QHS over the w/e. start lyrica 50 TID for now. hold valium steady at 2 mg for now. do not introduce more sed/hyp meds, such as ambien or other LONA-R modulators. Patient educated on: diagnosis, medication risk/benefits, substance abuse and medical condition Reason for contiued inpatient stay Substantial Risk for: inability to function and med/psych decompensation Time Spent With Patient Time: Total time managing care of this patient today _40___ minutes.
[2022-10-05 19:55] VITALS: BP 134/77; PULSE 102; RESP 18; TEMP 36.2; O2SAT 97
[2022-10-05] MEDS: TiZANidine HCL 4 MG TABLET 16 MG PO (19:55)
[2022-10-05] MEDS: diazePAM 2 MG TABLET PO (19:55)
[2022-10-05] MEDS: Prazosin HCL 1 MG CAPSULE PO (19:57)
[2022-10-05] MEDS: traZODone HCL 100 MG TABLET 200 MG PO (19:58)
[2022-10-05] MEDS: OLANZapine 10 MG TABLET 30 MG PO (19:58)
[2022-10-05] MEDS: Divalproex Sodium ER 500 MG TAB.ER.24H 1000 MG PO (19:58)
[2022-10-05] MEDS: Melatonin 3 MG TABLET PO (19:59)
[2022-10-05] MEDS: Mirtazapine 15 MG TABLET 45 MG PO (19:59)
[2022-10-06] MEDS: Pregabalin 50 MG CAPSULE PO ×3 (08:27→20:47)
[2022-10-06] MEDS: Folic Acid 1 MG TABLET PO (08:27)
[2022-10-06] MEDS: Thiamine HCL 100 MG TABLET 200 MG PO (08:27)
[2022-10-06] MEDS: Pyridoxine HCl (Vitamin B6) 50 MG TABLET PO (08:27)
[2022-10-06 08:30] VITALS: BP 107/54; PULSE 78; RESP 20; TEMP 35.6; O2SAT 97
[2022-10-06] MEDS: Simethicone 80 MG TAB.CHEW 240 MG PO ×3 (09:26→17:39)
--- NOTE | 2022-10-06 10:30 | HO.PSYCHPN ---
Subjective Subjective Date of Service: 10/06/22 Reason For Visit: rebeca Subjective Notes: Conditional Voluntary Interim History: Patient was seen and discussed in rounds today. Records and plans were reviewed. Continues to have moderate depression. She is visible, social. She is using p.r.n. Zyprexa with benefits. Eating adequately and slept better. No complaints or side effects. No changes were made today. She slept much much better with prazosin with no side effects Medication Compliance: Yes Side effects from medications: No Review of Systems Review of Systems asymptomatic covid positive Yes all other systems are reviewed and are negative Diagnostics Vital Signs (24Hr): Vital Signs - 24 hr 10/05/22 19:55 10/06/22 08:30 Temperature 97.1 F 96.1 F L Pulse Rate 102 H 78 Respiratory Rate 18 20 Blood Pressure 134/77 107/54 L Pulse Oximetry 97 97 Oxygen Delivery Method Room Air Room Air BMI result Body Mass Index 22.9 Labs 10/03/22 20:15 10/03/22 20:15 Imaging Radiology Impressions: ITS Impressions Abdomen/Pelvis CT 09/27/22 16:30 IMPRESSION: No significant abnormality. A cause for the patient's hypotension has not been found. Fleischner guidelines were followed. Chest CTA 09/27/22 16:30 IMPRESSION: No evidence of pulmonary emboli. VTE: negative. Head CT 09/27/22 16:30 IMPRESSION: 1. No acute intracranial pathology. No acute edematous territorial infarct or intracranial hemorrhage identified. Medications Medications Current Medications Acetaminophen (Acetaminophen 325 Mg Tablet) 650 mg PO Q6H PRN PRN Reason: Headache/Pain Mild Scale (1-3) Last Admin: 10/04/22 20:39 Dose: 650 mg Al Hydroxide/Mg Hydroxide (Magnesium Hydrox/Alum Hydrox 30 Ml Oral.Susp) 30 ml PO Q6H PRN PRN Reason: Heartburn/Nausea Diazepam (Diazepam 2 Mg Tablet) 2 mg PO BEDTIME [facility] Last Admin: 10/05/22 19:55 Dose: 2 mg Divalproex Sodium (Divalproex Sodium Er 500 Mg Tab.Er.24h) 1,000 mg PO BEDTIME [facility] Last Admin: 10/05/22 19:58 Dose: 1,000 mg Folic Acid (Folic Acid 1 Mg Tablet) 1 mg PO DAILY [facility] Last Admin: 10/06/22 08:27 Dose: 1 mg Hydroxyzine HCl (Hydroxyzine Hcl 25 Mg Tablet) 25 mg PO Q6H PRN PRN Reason: Anxiety Last Admin: 10/05/22 19:59 Dose: 25 mg Magnesium Hydroxide (Milk Of Magnesia 30 Ml Oral.Susp) 30 ml PO DAILY PRN PRN Reason: Constipation Melatonin (Melatonin 3 Mg Tablet) 3 mg PO BEDTIME [facility] Last Admin: 10/05/22 19:59 Dose: 3 mg Mirtazapine (Mirtazapine 15 Mg Tablet) 45 mg PO BEDTIME [facility] Last Admin: 10/05/22 19:59 Dose: 45 mg Nicotine Polacrilex (Nicotine Polacrilex 2 Mg Gum) 4 mg BUCCAL Q2H PRN PRN Reason: Nicotine Cravings Olanzapine (Olanzapine 10 Mg Tablet) 30 mg PO BEDTIME [facility] Last Admin: 10/05/22 19:58 Dose: 30 mg Olanzapine (Olanzapine 2.5 Mg Tablet) 2.5 mg PO Q4H PRN PRN Reason: severe anxiety Last Admin: 10/05/22 17:16 Dose: 2.5 mg Prazosin HCl (Prazosin Hcl 1 Mg Capsule) 2 mg PO BEDTIME [facility]; Protocol Stop: 10/06/22 21:01 Prazosin HCl (Prazosin Hcl 1 Mg Capsule) 3 mg PO BEDTIME [facility]; Protocol Pregabalin (Pregabalin 50 Mg Capsule) 50 mg PO TID [facility] Last Admin: 10/06/22 08:27 Dose: 50 mg Pyridoxine HCl (Pyridoxine Hcl (Vitamin B6) 50 Mg Tablet) 50 mg PO DAILY [facility] Last Admin: 10/06/22 08:27 Dose: 50 mg Simethicone (Simethicone 80 Mg Tab.Chew) 240 mg PO TIDWM [facility] Last Admin: 10/06/22 09:26 Dose: 240 mg Thiamine HCl (Thiamine Hcl 100 Mg Tablet) 200 mg PO DAILY [facility] Last Admin: 10/06/22 08:27 Dose: 200 mg Tizanidine HCl (Tizanidine Hcl 4 Mg Tablet) 16 mg PO BEDTIME [facility] Last Admin: 10/05/22 19:55 Dose: 16 mg Trazodone HCl (Trazodone Hcl 100 Mg Tablet) 200 mg PO BEDTIME [facility] Last Admin: 10/05/22 19:58 Dose: 200 mg Allergies Allergies Allergy/AdvReac Type Severity Reaction Status Date / Time duloxetine [From CYALTA] Allergy Unknown Hallucinati Verified 09/27/22 08:43 ons morphine [MORPHINE] Allergy Unknown HALLUCINATI Verified 09/27/22 08:43 ONS Phenylpiperazine AdvReac Severe hallucinati Verified 09/27/22 08:43 Antidepressant ons Tetracyclic Antidepressants AdvReac Severe hallucinati Verified 09/27/22 08:43 ons fentanyl [FENTANYL] AdvReac Unknown Hallucinati Verified 09/27/22 08:43 ons Assessment & Plan Assessment & Plan (1) Bipolar disorder: Status: Acute Code(s): F31.9 - Bipolar disorder, unspecified (2) Chronic pain: Status: Acute Code(s): G89.29 - Other chronic pain (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 she reports she has not seen her prescriber or had her meds changed since then. she endorses failure to take medications as prescribed in the interim. will attempt to get pt to have regular sleep as a first goal. since pt has been taking benzos even since she has not been prescribed them since prior to her admission in august (positive utox at this admission), place pt on valium 5 at HS and observe for sed/hyp withdrawal syndrome and give additional medication as indicated. 09/29: no changes 09/30: no changes 16: appearing much less pressured and more organized in thoughts than at admission. continue current mgmt. reports still not sleeping very well. 10/02: sleeping days and nights. begin to taper valium, dosing changed from 5 mg QHS to 4 mg QHS as of tonight. also taper cogentin, 1 BID, to 0.5 BID as of tonight. cogentin may be vestigial, will observe for EPS as it is tapered. a bit brighter and more engaged, but does appear to be experiencing derailment and word-finding difficulties. 10/03: cognition now appears essentially baseline. DC cogentin. taper valium to 3 mg QHS. reports she slept well last night. check VPA level and associated labs tonight. 10/04: MS essentially at baseline. asking for DC tomorrow, advised against it. she will consider and let us know tomorrow. decrease HS valium to 2 mg. 10/05: c/o insomnia largely influenced by neuropathic pain today; anxiety. start prazosin 1 mg tonight and titrate to 3 mg QHS over the w/e. start lyrica 50 TID for now. hold valium steady at 2 mg for now. do not introduce more sed/hyp meds, such as ambien or other LONA-R modulators. 10/06: Continue current regimen and plans Patient educated on: medication risk/benefits Reason for contiued inpatient stay Substantial Risk for: med/psych decompensation Time Spent With Patient Time: Total time managing care of this patient today ____ minutes.
[2022-10-06 12:53] VITALS: TEMP 36.4
[2022-10-06] MEDS: OLANZapine 2.5 MG TABLET PO (15:36)
[2022-10-06] MEDS: Magnesium Hydrox/Alum Hydrox 30 ML ORAL.SUSP PO (16:17)
[2022-10-06 20:45] VITALS: BP 124/62; PULSE 90; RESP 18; TEMP 36.7; O2SAT 97
[2022-10-06] MEDS: traZODone HCL 100 MG TABLET 200 MG PO (20:47)
[2022-10-06] MEDS: Mirtazapine 15 MG TABLET 45 MG PO (20:47)
[2022-10-06] MEDS: hydrOXYzine HCL 25 MG TABLET PO (20:47)
[2022-10-06] MEDS: OLANZapine 10 MG TABLET 30 MG PO (20:47)
[2022-10-06] MEDS: TiZANidine HCL 4 MG TABLET 16 MG PO (20:47)
[2022-10-06] MEDS: Melatonin 3 MG TABLET PO (20:47)
[2022-10-06] MEDS: Divalproex Sodium ER 500 MG TAB.ER.24H 1000 MG PO (20:47)
[2022-10-06] MEDS: Acetaminophen 325 MG TABLET 650 MG PO (20:48)
[2022-10-06] MEDS: Prazosin HCL 1 MG CAPSULE 2 MG PO (20:48)
[2022-10-06] MEDS: diazePAM 2 MG TABLET PO (20:48)
[2022-10-07] MEDS: Thiamine HCL 100 MG TABLET 200 MG PO (09:28)
[2022-10-07] MEDS: Pyridoxine HCl (Vitamin B6) 50 MG TABLET PO (09:28)
[2022-10-07] MEDS: Simethicone 80 MG TAB.CHEW 240 MG PO ×3 (09:28→18:17)
[2022-10-07] MEDS: Pregabalin 50 MG CAPSULE PO ×3 (09:28→20:35)
[2022-10-07] MEDS: Folic Acid 1 MG TABLET PO (09:28)
--- NOTE | 2022-10-07 09:39 | P.PNPSI_ITS ---
Subjective Subjective Date of Service: 10/07/22 Reason For Visit: rebeca Subjective Notes: Conditional Voluntary Interim History: Patient was seen and discussed in rounds today. Records and plans were reviewed. She has been visible and is doing a little better. The increased dose of prazosin has been helpful but last night she had a lot of sleep interruptions because of her roommate who is crying. Still has some anxiety and issues of discharge planning way on her mind. No other complaints. No changes were made today Medication Compliance: Yes Side effects from medications: No Review of Systems Review of Systems asymptomatic covid positive Yes all other systems are reviewed and are negative Diagnostics Vital Signs (24Hr): Vital Signs - 24 hr 10/06/22 12:53 10/06/22 20:45 Temperature 97.5 F 98.1 F Pulse Rate 90 Respiratory Rate 18 Blood Pressure 124/62 Pulse Oximetry 97 Oxygen Delivery Method Room Air BMI result Body Mass Index 22.9 Labs 10/03/22 20:15 10/03/22 20:15 Imaging Radiology Impressions: ITS Impressions Abdomen/Pelvis CT 09/27/22 16:30 IMPRESSION: No significant abnormality. A cause for the patient's hypotension has not been found. Fleischner guidelines were followed. Chest CTA 09/27/22 16:30 IMPRESSION: No evidence of pulmonary emboli. VTE: negative. Head CT 09/27/22 16:30 IMPRESSION: 1. No acute intracranial pathology. No acute edematous territorial infarct or intracranial hemorrhage identified. Medications Medications Current Medications Acetaminophen (Acetaminophen 325 Mg Tablet) 650 mg PO Q6H PRN PRN Reason: Headache/Pain Mild Scale (1-3) Last Admin: 10/06/22 20:48 Dose: 650 mg Al Hydroxide/Mg Hydroxide (Magnesium Hydrox/Alum Hydrox 30 Ml Oral.Susp) 30 ml PO Q6H PRN PRN Reason: Heartburn/Nausea Last Admin: 10/06/22 16:17 Dose: 30 ml Diazepam (Diazepam 2 Mg Tablet) 2 mg PO BEDTIME [facility] Last Admin: 10/06/22 20:48 Dose: 2 mg Divalproex Sodium (Divalproex Sodium Er 500 Mg Tab.Er.24h) 1,000 mg PO BEDTIME [facility] Last Admin: 10/06/22 20:47 Dose: 1,000 mg Folic Acid (Folic Acid 1 Mg Tablet) 1 mg PO DAILY [facility] Last Admin: 10/07/22 09:28 Dose: 1 mg Hydroxyzine HCl (Hydroxyzine Hcl 25 Mg Tablet) 25 mg PO Q6H PRN PRN Reason: Anxiety Last Admin: 10/06/22 20:47 Dose: 25 mg Magnesium Hydroxide (Milk Of Magnesia 30 Ml Oral.Susp) 30 ml PO DAILY PRN PRN Reason: Constipation Melatonin (Melatonin 3 Mg Tablet) 3 mg PO BEDTIME [facility] Last Admin: 10/06/22 20:47 Dose: 3 mg Mirtazapine (Mirtazapine 15 Mg Tablet) 45 mg PO BEDTIME [facility] Last Admin: 10/06/22 20:47 Dose: 45 mg Nicotine Polacrilex (Nicotine Polacrilex 2 Mg Gum) 4 mg BUCCAL Q2H PRN PRN Reason: Nicotine Cravings Olanzapine (Olanzapine 10 Mg Tablet) 30 mg PO BEDTIME [facility] Last Admin: 10/06/22 20:47 Dose: 30 mg Olanzapine (Olanzapine 2.5 Mg Tablet) 2.5 mg PO Q4H PRN PRN Reason: severe anxiety Last Admin: 10/06/22 15:36 Dose: 2.5 mg Prazosin HCl (Prazosin Hcl 1 Mg Capsule) 3 mg PO BEDTIME [facility]; Protocol Pregabalin (Pregabalin 50 Mg Capsule) 50 mg PO TID [facility] Last Admin: 10/07/22 09:28 Dose: 50 mg Pyridoxine HCl (Pyridoxine Hcl (Vitamin B6) 50 Mg Tablet) 50 mg PO DAILY [facility] Last Admin: 10/07/22 09:28 Dose: 50 mg Simethicone (Simethicone 80 Mg Tab.Chew) 240 mg PO TIDWM [facility] Last Admin: 10/07/22 09:28 Dose: 240 mg Thiamine HCl (Thiamine Hcl 100 Mg Tablet) 200 mg PO DAILY [facility] Last Admin: 10/07/22 09:28 Dose: 200 mg Tizanidine HCl (Tizanidine Hcl 4 Mg Tablet) 16 mg PO BEDTIME [facility] Last Admin: 10/06/22 20:47 Dose: 16 mg Trazodone HCl (Trazodone Hcl 100 Mg Tablet) 200 mg PO BEDTIME [facility] Last Admin: 10/06/22 20:47 Dose: 200 mg Allergies Allergies Allergy/AdvReac Type Severity Reaction Status Date / Time duloxetine [From CYMBALTA] Allergy Unknown Hallucinati Verified 09/27/22 08:43 ons morphine [MORPHINE] Allergy Unknown HALLUCINATI Verified 09/27/22 08:43 ONS Phenylpiperazine AdvReac Severe hallucinati Verified 09/27/22 08:43 Antidepressant ons Tetracyclic Antidepressants AdvReac Severe hallucinati Verified 09/27/22 08:43 ons fentanyl [FENTANYL] AdvReac Unknown Hallucinati Verified 09/27/22 08:43 ons Assessment & Plan Assessment & Plan (1) Bipolar disorder: Status: Acute Code(s): F31.9 - Bipolar disorder, unspecified (2) Chronic pain: Status: Acute Code(s): G89.29 - Other chronic pain (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 she reports she has not seen her prescriber or had her meds changed since then. she endorses failure to take medications as prescribed in the interim. will attempt to get pt to have regular sleep as a first goal. since pt has been taking benzos even since she h as not been prescribed them since prior to her admission in august (positive utox at this admission), place pt on valium 5 at HS and observe for sed/hyp withdrawal syndrome and give additional medication as indicated. 09/29: no changes 09/30: no changes 10/01: appearing much less pressured and more organized in thoughts than at admission. continue current mgmt. reports still not sleeping very well. 10/02: sleeping days and nights. begin to taper valium, dosing changed from 5 mg QHS to 4 mg QHS as of tonight. also taper cogentin, 1 BID, to 0.5 BID as of tonight. cogentin may be vestigial, will observe for EPS as it is tapered. a bit brighter and more engaged, but does appear to be experiencing derailment and word-finding difficulties. 10/03: cognition now appears essentially baseline. DC cogentin. taper valium to 3 mg QHS. reports she slept well last night. check VPA level and associated labs tonight. 10/04: MS essentially at baseline. asking for DC tomorrow, advised against it. she will consider and let us know tomorrow. decrease HS valium to 2 mg. 10/05: c/o insomnia largely influenced by neuropathic pain today; anxiety. start prazosin 1 mg tonight and titrate to 3 mg QHS over the w/e. start lyrica 50 TID for now. hold valium steady at 2 mg for now. do not introduce more sed/hyp meds, such as ambien or other LONA-R modulators. 10/06: Continue current regimen and plans Reason for contiued inpatient stay Substantial Risk for: med/psych decompensation Time Spent With Patient Time: Total time managing care of this patient today ____ minutes.
[2022-10-07 10:10] VITALS: BP 124/70; PULSE 76; RESP 16; TEMP 36.6; O2SAT 97
[2022-10-07] MEDS: Milk of Magnesia 30 ML ORAL.SUSP PO (17:52)
[2022-10-07 20:30] VITALS: BP 138/77; PULSE 99; RESP 16; TEMP 36.8; O2SAT 97
[2022-10-07] MEDS: diazePAM 2 MG TABLET PO (20:31)
[2022-10-07] MEDS: traZODone HCL 100 MG TABLET 200 MG PO (20:31)
[2022-10-07] MEDS: OLANZapine 10 MG TABLET 30 MG PO (20:31)
[2022-10-07] MEDS: Mirtazapine 15 MG TABLET 45 MG PO (20:32)
[2022-10-07] MEDS: Acetaminophen 325 MG TABLET 650 MG PO (20:32)
[2022-10-07] MEDS: Melatonin 3 MG TABLET PO (20:33)
[2022-10-07] MEDS: Prazosin HCL 1 MG CAPSULE 3 MG PO (20:33)
[2022-10-07] MEDS: Divalproex Sodium ER 500 MG TAB.ER.24H 1000 MG PO (20:34)
[2022-10-07] MEDS: TiZANidine HCL 4 MG TABLET 16 MG PO (20:34)
[2022-10-08 08:40] VITALS: BP 108/54; PULSE 75; RESP 18; TEMP 36.7; O2SAT 98
[2022-10-08] MEDS: Simethicone 80 MG TAB.CHEW 240 MG PO ×3 (08:48→17:45)
[2022-10-08] MEDS: Thiamine HCL 100 MG TABLET 200 MG PO (08:49)
[2022-10-08] MEDS: Pyridoxine HCl (Vitamin B6) 50 MG TABLET PO (08:49)
[2022-10-08] MEDS: Pregabalin 50 MG CAPSULE PO ×3 (08:50→20:44)
[2022-10-08] MEDS: Folic Acid 1 MG TABLET PO (08:50)
--- NOTE | 2022-10-08 11:12 | P.DS_ITS ---
DS: Providers Provider Date of Service: 10/08/22 Date of admission: 09/28/22 13:58 Primary care physician: Nonstaff Physician DS: Diagnosis Discharge Diagnosis (1) Bipolar disorder: Status: Acute (2) Chronic pain: Status: Acute (3) Sedative or hypnotic abuse: Status: Acute DS: Medications Discharge Medications Home Medications: Home Medications Medication Instructions Recorded Confirmed acetaminophen 325 mg tablet 650 mg PO Q4H PRN Pain 07/14/22 09/27/22 mirtazapine 15 mg tablet 3 tab PO BEDTIME 09/05/22 09/27/22 tizanidine 4 mg tablet 4 tab PO BEDTIME 09/05/22 09/27/22 trazodone 100 mg tablet 2 tab PO BEDTIME 09/05/22 09/27/22 divalproex 500 mg tablet,extended 500 mg PO BID 09/27/22 09/27/22 release 24 hr folic acid 1 mg tablet 1 tab PO DAILY 09/27/22 09/27/22 pyridoxine (vitamin B6) 50 mg 1 tab PO DAILY 09/27/22 09/27/22 tablet simethicone 125 mg tablet 125 mg PO TIDAC 09/27/22 09/27/22 thiamine HCl (vitamin B1) 100 mg 2 tab PO DAILY 09/27/22 09/27/22 tablet Previous Rx's Medication Instructions Recorded olanzapine 10 mg tablet 3 tab PO BEDTIME 30 days #90 tabs 10/08/22 prazosin 1 mg capsule 4 mg PO BEDTIME 30 days #120 caps 10/08/22 pregabalin 50 mg capsule (Lyrica) 50 mg PO TID 30 days #90 caps 10/08/22 Mental Status Exam Mental Status Exam Narrative: wearing street clothes. cooperative. no PMA/PMR. speech incr rate, amount. nml loudness, decr latency. thoughts linear and organized. affect normo- intense, flexible, non-labile. mood OK. no SI/SIBI/HI/AVH. Data Data Completed and Pending Completed studies during hospitalization [Text1]: 10/03/22 10/03/22 10/03/22 20:15 20:15 20:15 WBC 8.2 RBC 4.35 Hgb 12.8 Hct 38.9 MCV 89.4 MCH 29.4 MCHC 32.9 RDW 13.9 Plt Count 423 H MPV 9.3 L Immature Gran % (Auto) 0.2 Neut % (Auto) 59.2 Lymph % (Auto) 31.5 [place] % (Auto) 7.6 Eos % (Auto) 0.0 Baso % (Auto) 1.5 Lymph # (Auto) 2.6 [place] # (Auto) 0.6 Eos # (Auto) 0.0 Baso # (Auto) 0.1 Abs Immat Gran (auto) 0.02 Absolute Neuts (auto) 4.9 Absolute Nucleated RBC 0.000 Nucleated RBC % (auto) 0.0 Sodium 139 Potassium 4.2 D Chloride 104 Carbon Dioxide 25 Anion Gap 14 BUN 18 H Creatinine 0.79 Estim Creat Clear Calc 77.1 Estimated GFR > 60 Random Glucose 116 H Calcium 9.1 D Total Bilirubin 0.2 Direct Bilirubin < 0.2 AST 11 ALT 8 Alkaline Phosphatase 60 Ammonia 49 Total Protein 6.3 L Albumin 4.3 Valproic Acid 10/03/22 20:15 WBC RBC Hgb Hct MCV MCH MCHC RDW Plt Count MPV Immature Gran % (Auto) Neut % (Auto) Lymph % (Auto) [place] % (Auto) Eos % (Auto) Baso % (Auto) Lymph # (Auto) [place] # (Auto) Eos # (Auto) Baso # (Auto) Abs Immat Gran (auto) Absolute Neuts (auto) Absolute Nucleated RBC Nucleated RBC % (auto) Sodium Potassium Chloride Carbon Dioxide Anion Gap BUN Creatinine Estim Creat Clear Calc Estimated GFR Random Glucose Calcium Total Bilirubin Direct Bilirubin AST ALT Alkaline Phosphatase Ammonia Total Protein Albumin Valproic Acid 96.0 Imaging Diagnostic Imaging Impressions Abdomen/Pelvis CT 09/27/22 16:30 IMPRESSION: No significant abnormality. A cause for the patient's hypotension has not been found. Fleischner guidelines were followed. Chest CTA 09/27/22 16:30 IMPRESSION: No evidence of pulmonary emboli. VTE: negative. Head CT 09/27/22 16:30 IMPRESSION: 1. No acute intracranial pathology. No acute edematous territorial infarct or intracranial hemorrhage identified. DS: Summary Hospital Course Hospital Course: per 09/28 admission note: pt self-presented to [facility] ED requesting admission to psych unit.? she reported several weeks without sleep, and attendant dysfunction.? she stated that she now will have to have supervised visits with her son because of her recent state.? she is asking for help with sleep.? she is in agreement to restart regim en she left here on on 09/12.? she agrees she leaves too early and states she is willing to stay longer this time to make sure she is sleeping well prior to discharge.? she is pressured and tangential in presentation, but otherwise appears to have more insight than is usually the case when she arrives for Tx. Past Psychiatric History: -past meds: seroquel, haldol, wellbutrin, klonopin, ambien, celexa,? -pt has had 5 previous inpatient stays at [facility] no h/o SA, SIB. ? ? OP: currently reconnecting with [facility] as she no longer sees Kylie Talley due to several no show appointment. Medical Evaluation [facility]ed: [facility] Medical History? 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 H/O colectomy H/O endoscopy H/O laparoscopy Hx of colonoscopy S/P cervical discectomy Family History: denies Social History: Raised by both parents, along with 4 siblings. has 3 older brothers and 1 younger.? Met developmental milestones as expected, graduated high school, bachelor's degree. ? 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 ? Stopped working due to a back injury and resulting severe chronic pain. -no longer lives with her now former boyfriend, bryn, as the relationship has ended since last discharge 09/12/22. son lives with her brother.? she reports she is about to receive a court order allowing only for supervised visits with her son. Substance History: h/o sedative/hypnotic abuse, cocaine abuse Trauma History: none divulged Precis: 09/28: restart regimen on which pt discharged 09/12.? she reports she has not seen her prescriber or had her meds changed since then.? she endorses failure to take medications as prescribed in the interim.? will attempt to get pt to have regular sleep as a first goal.? since pt has been taking benzos even since she has not been prescribed them since prior to her admission in august (positive utox at this admission), place pt on valium 5 at HS and observe for sed/hyp withdrawal syndrome and give additional medication as indicated. 09/29: no changes 09/30: no changes 10/01: appearing much less pressured and more organized in thoughts than at [facility].? continue current mgmt.? reports still not sleeping very well. 10/02: sleeping days and nights.? begin to taper valium, dosing changed from 5 mg QHS to 4 mg QHS as of tonight.? also taper cogentin, 1 BID, to 0.5 BID as of tonight.? cogentin may be vestigial, will observe for EPS as it is tapered.? a bit brighter and more engaged, but does appear to be experiencing derailment and word-finding difficulties. 10/03: cognition now appears essentially baseline.? DC cogentin.? taper valium to 3 mg QHS.? reports she slept well last night.? check VPA level and associated labs tonight. 10/04: MS essentially at baseline.? asking for DC tomorrow, advised against it.? she will consider and let us know tomorrow.? decrease HS valium to 2 mg. 10/05: c/o insomnia largely influenced by neuropathic pain today; anxiety.? start prazosin 1 mg tonight and titrate to 3 mg QHS over the w/e.? start lyrica 50 TID for now. ? hold valium steady at 2 mg for now.? do not introduce more sed/hyp meds, such as ambien or other LONA-R modulators. 10/06:? Continue current regimen and plans. 10/07:? Continue current regimen and plans. 10/08: slept well 2 of three nights over the weekend. interested in increasing prazosin to 4 mg tonight and discharging tomorrow. feeling well, looking well. clear, flexible affect. has psych MD appointment at 1 pm tomorrow which she wants to keep. 10/09: slept well, stable. discharged to home with outpt F/U in place. Time Spent with Patient Time attestation: Total time managing care of this patient today ____ minutes. Time spent: Greater than 30 minutes Discharge Plan Discharge Anticipated Discharge Date/Time: 10/09/22 11:00 Patient Disposition: Home, Self-Care Discharge Diagnosis: Bipolar I Disorder, MRE Manic Sedative/Hypnotic Use Disorder Referrals: Baldev Juan (Psychiatry) [Other] - 10/09/22 1:00 pm (TELEHEALTH APPOINTMENT) Mark (Therapy) [Other] - 10/12/22 12:00 pm (TELEPHONE APPOINTMENT) Physician,Nonstaff [Primary Care Provider] - 1 Week Discharge Medications: New prazosin 1 mg Capsule 4 mg PO BEDTIME 30 Days Qty: 120 0RF Protocol: Hold for SBP< HOLD for SBP < : 90 pregabalin [Lyrica] 50 mg Capsule 50 mg PO TID 30 Days Qty: 90 0RF Continued acetaminophen 325 mg Tablet 650 mg PO Q4H PRN (Reason: Pain) tizanidine 4 mg tablet 4 tab PO BEDTIME trazodone 100 mg tablet 2 tab PO BEDTIME mirtazapine 15 mg tablet 3 tab PO BEDTIME simethicone 125 mg Tablet 125 mg PO TIDAC thiamine HCl (vitamin B1) 100 mg tablet 2 tab PO DAILY pyridoxine (vitamin B6) 50 mg tablet 1 tab PO DAILY folic acid 1 mg tablet 1 tab PO DAILY divalproex 500 mg tablet extended release 24 hr 500 mg PO BID olanzapine 10 mg tablet 3 tab PO BEDTIME 30 Days Qty: 90 0RF Discontinued benztropine 1 mg tablet 1 tab PO BID diazepam 2 mg tablet 1 tab PO BID PRN (Reason: Anxiety) zolpidem 10 mg tablet 1 tab PO BEDTIME PRN (Reason: Insomnia) hydroxyzine pamoate 25 mg capsule 1 cap PO DAILY PRN (Reason: Sleep) aripiprazole [Abilify] 2 mg tablet 1 tab PO DAILY Discharge Orders: Discharge Order (Routine); Ordered 10/09/22 Ordered By: Omar Jean Diet: Advance to usual diet Activity on Discharge: As tolerated Stand Alone Forms: Patient Portal Discharge page, Community Support Care Plan Goals: remain safe, stable, and sober in the outpatient treatment setting. Health Concerns: chronic pain Plan of Treatment: take medications as prescribed, attend appointments as scheduled. Assessment: not at imminent risk of harm to self or others Discharge Date/Time: 10/09/22 11:05
[2022-10-08] MEDS: OLANZapine 2.5 MG TABLET PO (14:57)
--- NOTE | 2022-10-08 16:14 | HO.PSYCHPN ---
Subjective Subjective Reason For Visit: rebeca Diagnostics Vital Signs (24Hr): Vital Signs - 24 hr 10/07/22 20:30 10/08/22 08:40 Temperature 98.3 F 98.0 F Pulse Rate 99 75 Respiratory Rate 16 18 Blood Pressure 138/77 108/54 L Pulse Oximetry 97 98 Oxygen Delivery Method Room Air Room Air BMI result Body Mass Index 22.9 Labs 10/03/22 20:15 10/03/22 20:15 Imaging Radiology Impressions: ITS Impressions Abdomen/Pelvis CT 09/27/22 16:30 IMPRESSION: No significant abnormality. A cause for the patient's hypotension has not been found. Fleischner guidelines were followed. Chest CTA 09/27/22 16:30 IMPRESSION: No evidence of pulmonary emboli. VTE: negative. Head CT 09/27/22 16:30 IMPRESSION: 1. No acute intracranial pathology. No acute edematous territorial infarct or intracranial hemorrhage identified. Medications Medications Current Medications Acetaminophen (Acetaminophen 325 Mg Tablet) 650 mg PO Q6H PRN PRN Reason: Headache/Pain Mild Scale (1-3) Last Admin: 10/07/22 20:32 Dose: 650 mg Al Hydroxide/Mg Hydroxide (Magnesium Hydrox/Alum Hydrox 30 Ml Oral.Susp) 30 ml PO Q6H PRN PRN Reason: Heartburn/Nausea Last Admin: 10/06/22 16:17 Dose: 30 ml Diazepam (Diazepam 2 Mg Tablet) 1 mg PO BEDTIME [facility] Divalproex Sodium (Divalproex Sodium Er 500 Mg Tab.Er.24h) 1,000 mg PO BEDTIME [facility] Last Admin: 10/07/22 20:34 Dose: 1,000 mg Folic Acid (Folic Acid 1 Mg Tablet) 1 mg PO DAILY [facility] Last Admin: 10/08/22 08:50 Dose: 1 mg Hydroxyzine HCl (Hydroxyzine Hcl 25 Mg Tablet) 25 mg PO Q6H PRN PRN Reason: Anxiety Last Admin: 10/06/22 20:47 Dose: 25 mg Magnesium Hydroxide (Milk Of Magnesia 30 Ml Oral.Susp) 30 ml PO DAILY PRN PRN Reason: Constipation Last Admin: 10/07/22 17:52 Dose: 30 ml Melatonin (Melatonin 3 Mg Tablet) 3 mg PO BEDTIME [facility] Last Admin: 10/07/22 20:33 Dose: 3 mg Mirtazapine (Mirtazapine 15 Mg Tablet) 45 mg PO BEDTIME [facility] Last Admin: 10/07/22 20:32 Dose: 45 mg Nicotine Polacrilex (Nicotine Polacrilex 2 Mg Gum) 4 mg BUCCAL Q2H PRN PRN Reason: Nicotine Cravings Olanzapine (Olanzapine 10 Mg Tablet) 30 mg PO BEDTIME [facility] Last Admin: 10/07/22 20:31 Dose: 30 mg Olanzapine (Olanzapine 2.5 Mg Tablet) 2.5 mg PO Q4H PRN PRN Reason: severe anxiety Last Admin: 10/08/22 14:57 Dose: 2.5 mg Prazosin HCl (Prazosin Hcl 1 Mg Capsule) 4 mg PO BEDTIME [facility]; Protocol Pregabalin (Pregabalin 50 Mg Capsule) 50 mg PO TID [facility] Last Admin: 10/08/22 14:29 Dose: 50 mg Pyridoxine HCl (Pyridoxine Hcl (Vitamin B6) 50 Mg Tablet) 50 mg PO DAILY [facility] Last Admin: 10/08/22 08:49 Dose: 50 mg Simethicone (Simethicone 80 Mg Tab.Chew) 240 mg PO TIDWM [facility] Last Admin: 10/08/22 12:39 Dose: 240 mg Thiamine HCl (Thiamine Hcl 100 Mg Tablet) 200 mg PO DAILY [facility] Last Admin: 10/08/22 08:49 Dose: 200 mg Tizanidine HCl (Tizanidine Hcl 4 Mg Tablet) 16 mg PO BEDTIME [facility] Last Admin: 10/07/22 20:34 Dose: 16 mg Trazodone HCl (Trazodone Hcl 100 Mg Tablet) 200 mg PO BEDTIME [facility] Last Admin: 10/07/22 20:31 Dose: 200 mg Allergies Allergies Allergy/AdvReac Type Severity Reaction Status Date / Time duloxetine [From CYMBALTA] Allergy Unknown Hallucinati Verified 09/27/22 08:43 ons morphine [MORPHINE] Allergy Unknown HALLUCINATI Verified 09/27/22 08:43 ONS Phenylpiperazine AdvReac Severe hallucinati Verified 09/27/22 08:43 Antidepressant ons Tetracyclic Antidepressants AdvReac Severe hallucinati Verified 09/27/22 08:43 ons fentanyl [FENTANYL] AdvReac Unknown Hallucinati Verified 09/27/22 08:43 ons Assessment & Plan Assessment & Plan (1) Bipolar disorder: Status: Acute Code(s): F31.9 - Bipolar disorder, unspecified (2) Chronic pain: Status: Acute Code(s): G89.29 - Other chronic pain (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 she reports she has not seen her prescriber or had her meds changed since then. she endorses failure to take medications as prescribed in the interim. will attempt to get pt to have regular sleep as a first goal. since pt has been taking benzos even since she has not been prescribed them since prior to her admission in august (positive utox at this admission), place pt on valium 5 at HS and observe for sed/hyp withdrawal syndrome and give additional medication as indicated. 09/29: no changes 09/30: no changes 10/01: appearing much less pressured and more organized in thoughts than at admission. continue current mgmt. reports still not sleeping very well. 10/02: sleeping days and nights. begin to taper valium, dosing changed from 5 mg QHS to 4 mg QHS as of tonight. also taper cogentin, 1 BID, to 0.5 BID as of tonight. cogentin may be vestigial, will observe for EPS as it is tapered. a bit brighter and more engaged, but does appear to be experiencing derailment and word-finding difficulties. 10/03: cognition now appears essentially baseline. DC cogentin. taper valium to 3 mg QHS. reports she slept well last night. check VPA level and associated labs tonight. 10/04: MS essentially at baseline. asking for DC tomorrow, advised against it. she will consider and let us know tomorrow. decrease HS valium to 2 mg. 10/05: c/o insomnia largely influenced by neuropathic pain today; anxiety. start prazosin 1 mg tonight and titrate to 3 mg QHS over the w/e. start lyrica 50 TID for now. hold valium steady at 2 mg for now. do not introduce more sed/hyp meds, such as ambien or other LONA-R modulators. 10/06: Continue current regimen and plans Time Spent With Patient Time: Total time managing care of this patient today ____ minutes.
[2022-10-08] MEDS: diazePAM 2 MG TABLET 1 MG PO (20:40)
[2022-10-08] MEDS: TiZANidine HCL 4 MG TABLET 16 MG PO (20:41)
[2022-10-08] MEDS: OLANZapine 10 MG TABLET 30 MG PO (20:42)
[2022-10-08] MEDS: traZODone HCL 100 MG TABLET 200 MG PO (20:42)
[2022-10-08] MEDS: Prazosin HCL 1 MG CAPSULE 4 MG PO (20:42)
[2022-10-08] MEDS: Mirtazapine 15 MG TABLET 45 MG PO (20:43)
[2022-10-08] MEDS: Melatonin 3 MG TABLET PO (20:44)
[2022-10-08] MEDS: Acetaminophen 325 MG TABLET 650 MG PO (20:44)
[2022-10-08] MEDS: Divalproex Sodium ER 500 MG TAB.ER.24H 1000 MG PO (20:44)
[2022-10-08 20:48] VITALS: BP 143/63; PULSE 92; RESP 16; TEMP 36.7; O2SAT 99
[2022-10-09 08:15] VITALS: BP 108/55; PULSE 78; RESP 18; TEMP 36.6; O2SAT 98
[2022-10-09] MEDS: Pregabalin 50 MG CAPSULE PO (09:47)
[2022-10-09] MEDS: Thiamine HCL 100 MG TABLET 200 MG PO (09:48)
[2022-10-09] MEDS: Pyridoxine HCl (Vitamin B6) 50 MG TABLET PO (09:48)
[2022-10-09] MEDS: Folic Acid 1 MG TABLET PO (09:48)
[2022-10-09] MEDS: Simethicone 80 MG TAB.CHEW 240 MG PO (09:49)
--- NOTE | 2022-10-09 11:13 | PC.NURSE ---
Pt ready and aware of discharge. However she reports some anxiety regarding sleep, when she gets home. I told her if she has difficulty to reach out to her providers. She denies SI/HI/AH?VH at present time. I reviewed instructions medications and appointments , Kathrine verbalized understanding. Belongings form safe and Pharmacy were returned and she signed for them.
== END 2022-10-09 11:05 | disposition home or self-care (01) | DRG 885 ==
LOC: HO.ED 18:58 → HO.PADLT16 09-28 14:06
PROVIDERS: Physician Assistant Medical; Admitting Provider Psychiatry & Neurology Psychiatry; Emergency Provider Student in an Organized Health Care Education/Training Program; Visit Provider Psychiatry & Neurology Psychiatry
DX: F31.10 Bipolar disorder, current episode manic without psychotic features, unspecified (principal); U07.1 COVID-19; F13.10 Sedative, hypnotic or anxiolytic abuse, uncomplicated; G89.29 Other chronic pain; Z88.0 Allergy status to penicillin; Z79.899 Other long term (current) drug therapy
CPT/HCPCS: 36415; 70450; 71275; 74177; 80048; 80053; 80076; 80143; 80164; 80179; 80307; 81003; 82077; 82140; 82550; 83735; 84484; 85025; 85027; 85610; 85730; 87635; 93005; 96360; 99285; Q9967

== ENCOUNTER 2023-01-14 11:31 | Inpatient (IN) | payer MEDICARE, OTHER, SELFPAY ==
--- NOTE | 2023-01-14 11:51 | ED_ITS ---
HPI - Psych General Chief Complaint: Psychiatric Symptoms <GILMA Reyna Last Filed: 01/14/23 16:38> Stated Complaint: PSYCH EPSIODE,60 PILLS OF TRAZADONE MISSING <GILMA Reyna Last Filed: 01/14/23 16:38> Time Seen by Provider: 01/14/23 11:45 <GILMA Reyna Last Filed: 01/14/23 16:38> Source: patient, EMS, RN notes reviewed and old records reviewed <GILMA Reyna Last Filed: 01/14/23 16:38> Mode of arrival: EMS <GILMA Reyna Last Filed: 01/14/23 16:38> History of Present Illness HPI Narrative: 52-year-old female with a past medical history of anemia, anxiety, depression, fibromyalgia, IBS, bipolar, presenting to the ED via EMS complaining of acute psychosis recognized by patient's healthcare proxy/friend with reported ETOH use, insomnia, and increased depression. History obtained from HCP who states patient with similar symptoms in the past, not sleeping x few weeks, unable to complete thought process, and patient with history of overusing medications. Per EMS found empty ETOH bottles, marijuana, and empty trazodone bottle at home that was filled on 01/08 with 60 pills 100 mg tabs. Patient denies prescribed medications incorrectly, SI/HI, or illicit drug use. <GILMA Reyna Last Filed: 01/14/23 16:38> Onset (ago): week(s) <GILMA Reyna Last Filed: 01/14/23 16:38> Related Data Home Medications: Home Medications Medication Instructions Recorded Confirmed tizanidine 4 mg tablet 4 tab PO BEDTIME 09/05/22 01/14/23 divalproex 500 mg tablet,extended 500 mg PO BID 09/27/22 01/14/23 release 24 hr folic acid 1 mg tablet 1 tab PO BEDTIME 09/27/22 01/14/23 ascorbic acid (vitamin C) 500 mg 500 mg PO BEDTIME 01/14/23 01/14/23 chewable tablet prazosin 2 mg capsule 4 mg PO BEDTIME 01/14/23 01/14/23 vitamin B complex 1 tab PO BEDTIME 01/14/23 01/14/23 Previous Rx's Medication Instructions Recorded olanzapine 10 mg tablet 3 tab PO BEDTIME 30 days #90 tabs 10/08/22 mirtazapine 15 mg tablet 3 tab PO BEDTIME 30 days #90 tabs 10/09/22 <GILMA Reyna Last Filed: 01/14/23 16:38> Allergies/Adverse Reactions: Allergies Allergy/AdvReac Type Severity Reaction Status Date / Time duloxetine [From CYMBALTA] Allergy Unknown Hallucinati Verified 09/27/22 08:43 ons morphine [MORPHINE] Allergy Unknown HALLUCINATI Verified 09/27/22 08:43 ONS Phenylpiperazine AdvReac Severe hallucinati Verified 09/27/22 08:43 Antidepressant ons Tetracyclic Antidepressants AdvReac Severe hallucinati Verified 09/27/22 08:43 ons fentanyl [FENTANYL] AdvReac Unknown Hallucinati Verified 09/27/22 08:43 ons <GILMA Reyna - Last Filed: 01/14/23 16:38> Review of Systems Review of Systems: Constitutional: No Fever, No Chills, No Fatigue, No Malaise ENT/Mouth: No Ear Pain, No Nasal Congestion, No sore throat, No Rhinorrhea, No Swallowing Difficulty Eyes: No Eye Pain, No Swelling Cardiovascular: No Chest Pain, No SOB, No Edema, No Palpitations Respiratory: No Cough, No Sputum, No Dyspnea Gastrointestinal: No Nausea, No Vomiting, No Diarrhea, No Constipation, No Abdominal pain Genitourinary: No Dysuria, No Hematuria, No Flank Pain Musculoskeletal: No joint pain, No Myalgias, No Joint Swelling Skin: No Skin Lesions, No rash Neuro: No Weakness, No Dizziness, No Headache Psych: No Anxiety/Panic, + Depression, No SI/HI/AH/VH, + Social Issues <GILMA Reyna Last Filed: 01/14/23 16:38> Yes all other systems are reviewed and are negative <GILMA Reyna Last Filed: 01/14/23 16:38> Constitutional: Constitutional: Reports as per HPI <GILMA Reyna Last Filed: 01/14/23 16:38> [facility] Past Medical History Attestation statement: The following information was validated with the patient. <GILMA Reyna Last Filed: 01/14/23 16:38> Medical History: Medical History Anal fissure Anemia Anxiety Cervical radiculitis Cervical spinal cord compression Gonsalves hemangioma Chronic diarrhea Chronic narcotic use Chronic night sweats Chronic pain Contact dermatitis Cough Depression Dysconjugate gaze Dysuria Failed back surgical syndrome Fibromyalgia Gastric stress ulcer Gluteal pain Irritable bowel syndrome Left rib fracture Leg weakness Leukocytosis Low back pain Low ferritin Lumbar radiculitis Lumbar radiculopathy, chronic Medication side effects Mental status change resolved Muscle spasm Neck pain Panic attacks Paralysis Paresthesia of right upper limb 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 Pharyngitis Phlebitis Plantar wart Presbycusis Pyogenic granuloma Rash Right cervical radiculopathy Right elbow pain Sleep disturbance Social anxiety disorder Tachycardia Tubular adenoma Underweight Use of opiates for therapeutic purposes Vaginal discharge Vaginitis Viral gastroenteritis Vitamin D deficiency Yeast vaginitis <GILMA Reyna - Last Filed: 01/14/23 16:38> Surgical History: Surgical History H/O colectomy H/O endoscopy H/O laparoscopy Hx of colonoscopy S/P cervical discectomy <GILMA Reyna - Last Filed: 01/14/23 16:38> Family History Family History: Family History Father AAA (abdominal aortic aneurysm) Mother TMJ (temporomandibular joint disorder) <GILMA Reyna - Last Filed: 01/14/23 16:38> Social History Social History: Social History Household Members: None Household Members Other:: Boyfriend Housing: House Do you presently have visiting nurse or other home services: No Alcohol intake: unknown Patient Tobacco Use Status: Never used Tobacco Smoked in Last 30 Days: No e-Cigarette/Vaping Use: Never Used Second Hand Smoke Exposure: No Use of substances other than those prescribed or required for medical reasons: Yes Substance Use Type: Marijuana Advance Directives: Yes Advance Directives on File: Yes Advance Directives Date on File: 09/13/22 service: No Current occupational exposures/hazards: No Sexual orientation: Straight/Heterosexual <GILMA Reyna - Last Filed: 01/14/23 16:38> Physical Exam Vital Signs: Vital Signs: Last Vital Signs Temp 97.6 F 01/14/23 15:16 Pulse 71 01/14/23 16:00 Resp 18 01/14/23 16:00 BP 145/92 H 01/14/23 16:00 Pulse Ox 98 01/14/23 16:00 O2 Del Method Room Air 01/14/23 16:00 BMI result Body Mass Index 22.6 <GILMA Reyna - Last Filed: 01/14/23 16:38> Vital Signs: Last Vital Signs Temp 97.6 F 01/14/23 15:16 Pulse 71 01/14/23 16:00 Resp 18 01/14/23 16:00 BP 145/92 H 01/14/23 16:00 Pulse Ox 98 01/14/23 16:00 O2 Del Method Room Air 01/14/23 16:00 BMI result Body Mass Index 22.6 <Yan Underwood - Last Filed: 01/14/23 17:49> Const: General: cooperative, no acute distress, alert and awake <GILMA Reyna - Last Filed: 01/14/23 16:38> Limitations: no limitations <GILMA Reyna - Last Filed: 01/14/23 16:38> HEENT: Head: Yes normal to inspection and Yes atraumatic <GILMA Reyna - Last Filed: 01/14/23 16:38> Ears: hearing grossly normal bilaterally <GILMA Reyna - Last Filed: 01/14/23 16:38> General nose exam: Normal external nose present <GILMA Reyna - Last Filed: 01/14/23 16:38> Face and sinus: Yes normal facial exam <GILMA Reyna - Last Filed: 01/14/23 16:38> Eyes: General: appearance normal, both eyes and all related structures <GILMA Reyna - Last Filed: 01/14/23 16:38> Pupils: Equal, round and reactive pupils present <GILMA Reyna - Last Filed: 01/14/23 16:38> EOM: EOMs intact bilaterally <Liya Juliánlouisat, PA - Last Filed: 01/14/23 16:38> Neck: Neck: Yes normal visual inspection and Yes no meningeal signs <Liya Juliánlouisat PA - Last Filed: 01/14/23 16:38> Resp: Effort & Inspection: normal respiratory effort and no respiratory distress <Liya Milton PA - Last Filed: 01/14/23 16:38> Auscultation: clear to auscultation bilaterally <Liya Poullouisat PA - Last Filed: 01/14/23 16:38> Cardio: Rate: regular rate <Liya Poullouisat PA - Last Filed: 01/14/23 16:38> Heart sounds: S1 normal heart sound present and S2 normal heart sound present <Liya Nullt PA - Last Filed: 01/14/23 16:38> GI: Inspection: Yes normal to inspection <Liya Milton PA - Last Filed: 01/14/23 16:38> Palpation (GI): Soft to palpation, nontender, no guarding and not rigid <Liya Milton PA - Last Filed: 01/14/23 16:38> Skin: Rashes: no rashes <Liya Milton PA - Last Filed: 01/14/23 16:38> Wounds: no wounds <Liya Poulcelso PA - Last Filed: 01/14/23 16:38> Neuro: General: tone normal, no meningeal signs and CN's II-XI intact bilaterally <Liya Milton PA - Last Filed: 01/14/23 16:38> Cranial nerves: Yes Equal, round and reactive pupils present <Liya Poullouisat PA - Last Filed: 01/14/23 16:38> Gait exam (Neuro): Normal gait present <Liya Milton PA - Last Filed: 01/14/23 16:38> Extrem: General: Yes normal to inspection <Liya Milton PA - Last Filed: 01/14/23 16:38> Psych: Speech and movement: Restless speech present <Liya Milton PA - Last Filed: 01/14/23 16:38> Attitude: Guarded attititude/behavior present and Avoids eye contact (attititude/behavior) <GILMA Reyna Last Filed: 01/14/23 16:38> Thought process: Flight of ideas present, Loose association thought process present and Racing thoughts present <GILMA Reyna Last Filed: 01/14/23 16:38> Thought content: suicidality, no homicidality and Depressive thoughts present <GILMA Reyna Last Filed: 01/14/23 16:38> Insight: Limited insight present (Psych) <GILMA Reyna Last Filed: 01/14/23 16:38> Judgement: Limited judgement present (Psych) <GILMA Reyna Last Filed: 01/14/23 16:38> Course Course Course Narrative: -spoke with poison Control recommended labs including magnesium, hCG, drug screen, acetaminophen/Tylenol & keeping Magnesium > 2 and Potassium > 4. Supportive care with benzos -mild leukocytosis of 13.9. Labs otherwise reassuring. UA negative -tox screen positive for fentanyl & THC. Ethanol negative >1523--patient medically cleared for CARE team evaluation. Physician observation initiated 1630--CARE team evaluated patient, she will be an inpatient bed search. ED care transferred to GILMA Sun pending bed search <GILMA Reyna Last Filed: 01/14/23 16:38> Reevaluation(s) Reevaluation #1: I received a phone call from the bleeding control. They requested a repeat EKG to assess for change in the QTC. Repeat EKG showed the patient's QTC at 420ms. At this time, the patient is medically cleared for care team evaluation <Yan Underwood - Last Filed: 01/14/23 17:49> Time: 17:49 <Yan Underwood - Last Filed: 01/14/23 17:49> Medications Administered Discontinued Medications Generic Name Dose Route Start Last Admin Trade Name Freq PRN Reason Stop Dose Admin Magnesium Sulfate 2 gm in 50 mls @ 25 mls/hr 01/14/23 14:52 01/14/23 16:01 Magnesium Sulfate/H2o IV 01/14/23 16:51 25 mls/hr ONCE ONE Administration Sodium Chloride 1,000 mls @ 999 mls/hr 01/14/23 16:45 01/14/23 17:12 Ns IV 01/14/23 17:45 999 mls/hr .Q1H1M PEDRITO Administration Lorazepam 1 mg 01/14/23 12:20 01/14/23 12:49 Lorazepam 1 Mg Tablet PO 01/14/23 12:21 1 mg ONCE ONE Administration Potassium Chloride 40 meq 01/14/23 14:52 01/14/23 16:01 Potassium Chloride Packet 20 Meq Packet PO 01/14/23 14:53 Not Given ONCE ONE Potassium Chloride 40 meq 01/14/23 16:05 01/14/23 16:22 Potassium Chloride Er 20 Meq Tab.Er.Prt PO 01/14/23 16:06 40 meq ONCE ONE Administration <GILMA Reyna - Last Filed: 01/14/23 16:38> Medications Administered Discontinued Medications Generic Name Dose Route Start Last Admin Trade Name Freq PRN Reason Stop Dose Admin Magnesium Sulfate 2 gm in 50 mls @ 25 mls/hr 01/14/23 14:52 01/14/23 16:01 Magnesium Sulfate/H2o IV 01/14/23 16:51 25 mls/hr ONCE ONE Administration Sodium Chloride 1,000 mls @ 999 mls/hr 01/14/23 16:45 01/14/23 17:12 Ns IV 01/14/23 17:45 999 mls/hr .Q1H1M PEDRITO Administration Lorazepam 1 mg 01/14/23 12:20 01/14/23 12:49 Lorazepam 1 Mg Tablet PO 01/14/23 12:21 1 mg ONCE ONE Administration Potassium Chloride 40 meq 01/14/23 14:52 01/14/23 16:01 Potassium Chloride Packet 20 Meq Packet PO 01/14/23 14:53 Not Given ONCE ONE Potassium Chloride 40 meq 01/14/23 16:05 01/14/23 16:22 Potassium Chloride Er 20 Meq Tab.Er.Prt PO 01/14/23 16:06 40 meq ONCE ONE Administration <Yan Underwood - Last Filed: 01/14/23 17:49> Medical Decision Making Medical Decision Making MDM Narrative: 52-year-old female with a past medical history of anemia, anxiety, depression, fibromyalgia, IBS, bipolar, presenting to the ED via EMS complaining of acute psychosis recognized by patient's healthcare proxy/friend with reported ETOH use, insomnia, and increased depression. On exam vital signs stable, NAD, mildly tremulous, guarded, racing thoughts/flight of ideas, depressed, denies SI/HI, no evidence of trauma. Concern for acute psychosis vs substance abuse vs mild EtOH withdrawal vs medication noncompliance. Rule out metabolic and infectious etiologies. Lower suspicion for ICH Plan: EKG, labs, tox screen, CARE team consult Please refer to course for remaining clinical decision making, interpretation of labs/imaging results, and discussions with consultants and/or family members. <GILMA Reyna - Last Filed: 01/14/23 16:38> Differential Diagnosis Differential Diagnoses: The differential diagnosis associated with the presentation includes <GILMA Reyna - Last Filed: 01/14/23 16:38> As above <GILMA Reyna - Last Filed: 01/14/23 16:38> Admission/Observation Consideration of admission/observation: Escalation of care including admission/observation considered <GILMA Reyna - Last Filed: 01/14/23 16:38> Lab Data MDM Lab Attestation statement: I reviewed the patient's lab results. <GILMA Reyna - Last Filed: 01/14/23 16:38> Result Diagrams: 01/14/23 14:50 01/14/23 12:51 <GILMA Reyna - Last Filed: 01/14/23 16:38> Labs: Lab Results 01/14/23 01/14/23 01/14/23 Range/Units 12:51 12:51 13:56 WBC (4.8-10.8) X10*3/uL RBC (4.20-5.50) X10*6/uL Hgb (12.0-16.0) g/dl Hct (37.0-47.0) % MCV (80.0-98.0) fL MCH (27.0-33.0) pg MCHC (31.0-35.0) g/dl RDW (11.0-16.0) % Plt Count (160-400) X10*3/uL MPV (9.4-12.3) fL Immature Gran % (Auto) (0.0-0.4) % Neut % (Auto) (45-73) % Lymph % (Auto) (20-40) % Levy % (Auto) (2-11) % Eos % (Auto) (0-4) % Baso % (Auto) (0-2) % Lymph # (Auto) (1.2-4.9) X10*3/uL Levy # (Auto) (0.1-1.2) X10*3/uL Eos # (Auto) (0.0-0.4) X10*3/uL Baso # (Auto) (0.0-0.2) X10*3/uL Abs Immat Gran (auto) (0.00-0.03) X10*3/uL Absolute Neuts (auto) (2.0-8.3) x10*3/uL Absolute Nucleated RBC (0.0-0.012) X10*3/uL Nucleated RBC % (auto) (0.0-0.2) /100WBC Sodium 142 (135-145) mmol/L Potassium 3.8 (3.3-5.1) mmol/L Chloride 105 (96-108) mmol/L Carbon Dioxide 23 (22-29) mmol/L Anion Gap 18 (12-20) BUN 11 (9-16) mg/dL Creatinine 0.81 (0.5-1.4) mg/dL Estim Creat Clear Calc 75.1 Estimated GFR > 60 Random Glucose 92 (60-115) mg/dL Calcium 10.0 D (8.4-10.2) mg/dL Magnesium 1.7 (1.6-2.6) mg/dL Total Bilirubin 0.3 (0.0-1.0) mg/dL Direct Bilirubin 0.1 (0.0-0.5) mg/dL AST 15 (5-31) U/L ALT 8 (0-31) U/L Alkaline Phosphatase 62 (39-117) U/L Total Protein 7.0 (6.5-8.0) g/dL Albumin 4.8 (3.5-5.0) g/dL Lipase 50 (8-78) U/L Urine Color Urine Appearance Urine pH (5.0-9.0) Ur Specific [place] (1.005-1.025) Urine Protein (Neg-Trace) mg/dL Urine Glucose (UA) (Negative) mg/dL Urine Ketones (Negative) mg/dL Urine Blood (Negative) Urine Nitrite (Negative) Ur Leukocyte Esterase (Negative) Urine Test (NEGATIVE) Salicylates < 5.0 L (15-30) mg/dL Urine Opiates Screen Not Detected (Not Detect) Urine Fentanyl Screen POSITIVE H (Not Detect) Acetaminophen < 17 (<30) mcg/mL Ur Barbiturates Screen Not Detected (Not Detect) Valproic Acid < 12.5 L (50.0-100.0) mcg/mL Ur Phencyclidine Scrn Not Detected (Not Detect) Ur Amphetamines Screen Not Detected (Not Detect) U Benzodiazepines Scrn Not Detected (Not Detect) Urine Cocaine Screen Not Detected (Not Detect) U Marijuana (THC) Screen POSITIVE H (Not Detect) Ethyl Alcohol < 10 mg/dL COVID-19 (SALLY) (Negative) COVID-19 Clin Com 01/14/23 01/14/23 01/14/23 Range/Units 13:56 14:50 14:50 WBC 13.9 H (4.8-10.8) X10*3/uL RBC 4.64 (4.20-5.50) X10*6/uL Hgb 13.7 (12.0-16.0) g/dl Hct 41.2 (37.0-47.0) % MCV 88.8 (80.0-98.0) fL MCH 29.5 (27.0-33.0) pg MCHC 33.3 (31.0-35.0) g/dl RDW 14.6 (11.0-16.0) % Plt Count 402 H (160-400) X10*3/uL MPV 9.3 L (9.4-12.3) fL Immature Gran % (Auto) 0.3 (0.0-0.4) % Neut % (Auto) 83.6 H (45-73) % Lymph % (Auto) 8.5 L (20-40) % Levy % (Auto) 7.0 (2-11) % Eos % (Auto) 0.1 (0-4) % Baso % (Auto) 0.5 (0-2) % Lymph # (Auto) 1.2 (1.2-4.9) X10*3/uL Levy # (Auto) 1.0 (0.1-1.2) X10*3/uL Eos # (Auto) 0.0 (0.0-0.4) X10*3/uL Baso # (Auto) 0.1 (0.0-0.2) X10*3/uL Abs Immat Gran (auto) 0.04 H (0.00-0.03) X10*3/uL Absolute Neuts (auto) 11.7 H (2.0-8.3) x10*3/uL Absolute Nucleated RBC 0.000 (0.0-0.012) X10*3/uL Nucleated RBC % (auto) 0.0 (0.0-0.2) /100WBC Sodium (135-145) mmol/L Potassium (3.3-5.1) mmol/L Chloride (96-108) mmol/L Carbon Dioxide (22-29) mmol/L Anion Gap (12-20) BUN (9-16) mg/dL Creatinine (0.5-1.4) mg/dL Estim Creat Clear Calc Estimated GFR Random Glucose (60-115) mg/dL Calcium (8.4-10.2) mg/dL Magnesium (1.6-2.6) mg/dL Total Bilirubin (0.0-1.0) mg/dL Direct Bilirubin (0.0-0.5) mg/dL AST (5-31) U/L ALT (0-31) U/L Alkaline Phosphatase (39-117) U/L Total Protein (6.5-8.0) g/dL Albumin (3.5-5.0) g/dL Lipase (8-78) U/L Urine Color Yellow Urine Appearance Clear Urine pH 7.0 (5.0-9.0) Ur Specific [place] 1.010 (1.005-1.025) Urine Protein Negative (Neg-Trace) mg/dL Urine Glucose (UA) Negative (Negative) mg/dL Urine Ketones Negative (Negative) mg/dL Urine Blood Negative (Negative) Urine Nitrite Negative (Negative) Ur Leukocyte Esterase Negative (Negative) Urine Test NEGATIVE (NEGATIVE) Salicylates (15-30) mg/dL Urine Opiates Screen (Not Detect) Urine Fentanyl Screen (Not Detect) Acetaminophen (<30) mcg/mL Ur Barbiturates Screen (Not Detect) Valproic Acid (50.0-100.0) mcg/mL Ur Phencyclidine Scrn (Not Detect) Ur Amphetamines Screen (Not Detect) U Benzodiazepines Scrn (Not Detect) Urine Cocaine Screen (Not Detect) U Marijuana (THC) Screen (Not Detect) Ethyl Alcohol mg/dL COVID-19 (SALLY) (Negative) COVID-19 Clin Com 01/14/23 Range/Units 14:51 WBC (4.8-10.8) X10*3/uL RBC (4.20-5.50) X10*6/uL Hgb (12.0-16.0) g/dl Hct (37.0-47.0) % MCV (80.0-98.0) fL MCH (27.0-33.0) pg MCHC (31.0-35.0) g/dl RDW (11.0-16.0) % Plt Count (160-400) X10*3/uL MPV (9.4-12.3) fL Immature Gran % (Auto) (0.0-0.4) % Neut % (Auto) (45-73) % Lymph % (Auto) (20-40) % Levy % (Auto) (2-11) % Eos % (Auto) (0-4) % Baso % (Auto) (0-2) % Lymph # (Auto) (1.2-4.9) X10*3/uL Levy # (Auto) (0.1-1.2) X10*3/uL Eos # (Auto) (0.0-0.4) X10*3/uL Baso # (Auto) (0.0-0.2) X10*3/uL Abs Immat Gran (auto) (0.00-0.03) X10*3/uL Absolute Neuts (auto) (2.0-8.3) x10*3/uL Absolute Nucleated RBC (0.0-0.012) X10*3/uL Nucleated RBC % (auto) (0.0-0.2) /100WBC Sodium (135-145) mmol/L Potassium (3.3-5.1) mmol/L Chloride (96-108) mmol/L Carbon Dioxide (22-29) mmol/L Anion Gap (12-20) BUN (9-16) mg/dL Creatinine (0.5-1.4) mg/dL Estim Creat Clear Calc Estimated GFR Random Glucose (60-115) mg/dL Calcium (8.4-10.2) mg/dL Magnesium (1.6-2.6) mg/dL Total Bilirubin (0.0-1.0) mg/dL Direct Bilirubin (0.0-0.5) mg/dL AST (5-31) U/L ALT (0-31) U/L Alkaline Phosphatase (39-117) U/L Total Protein (6.5-8.0) g/dL Albumin (3.5-5.0) g/dL Lipase (8-78) U/L Urine Color Urine Appearance Urine pH (5.0-9.0) Ur Specific [place] (1.005-1.025) Urine Protein (Neg-Trace) mg/dL Urine Glucose (UA) (Negative) mg/dL Urine Ketones (Negative) mg/dL Urine Blood (Negative) Urine Nitrite (Negative) Ur Leukocyte Esterase (Negative) Urine Test (NEGATIVE) Salicylates (15-30) mg/dL Urine Opiates Screen (Not Detect) Urine Fentanyl Screen (Not Detect) Acetaminophen (<30) mcg/mL Ur Barbiturates Screen (Not Detect) Valproic Acid (50.0-100.0) mcg/mL Ur Phencyclidine Scrn (Not Detect) Ur Amphetamines Screen (Not Detect) U Benzodiazepines Scrn (Not Detect) Urine Cocaine Screen (Not Detect) U Marijuana (THC) Screen (Not Detect) Ethyl Alcohol mg/dL COVID-19 (SALLY) Negative (Negative) COVID-19 Clin Com See Note <GILMA Reyna - Last Filed: 01/14/23 16:38> Lab Results 01/14/23 01/14/23 01/14/23 Range/Units 12:51 12:51 13:56 WBC (4.8-10.8) X10*3/uL RBC (4.20-5.50) X10*6/uL Hgb (12.0-16.0) g/dl Hct (37.0-47.0) % MCV (80.0-98.0) fL MCH (27.0-33.0) pg MCHC (31.0-35.0) g/dl RDW (11.0-16.0) % Plt Count (160-400) X10*3/uL MPV (9.4-12.3) fL Immature Gran % (Auto) (0.0-0.4) % Neut % (Auto) (45-73) % Lymph % (Auto) (20-40) % Levy % (Auto) (2-11) % Eos % (Auto) (0-4) % Baso % (Auto) (0-2) % Lymph # (Auto) (1.2-4.9) X10*3/uL Levy # (Auto) (0.1-1.2) X10*3/uL Eos # (Auto) (0.0-0.4) X10*3/uL Baso # (Auto) (0.0-0.2) X10*3/uL Abs Immat Gran (auto) (0.00-0.03) X10*3/uL Absolute Neuts (auto) (2.0-8.3) x10*3/uL Absolute Nucleated RBC (0.0-0.012) X10*3/uL Nucleated RBC % (auto) (0.0-0.2) /100WBC Sodium 142 (135-145) mmol/L Potassium 3.8 (3.3-5.1) mmol/L Chloride 105 (96-108) mmol/L Carbon Dioxide 23 (22-29) mmol/L Anion Gap 18 (12-20) BUN 11 (9-16) mg/dL Creatinine 0.81 (0.5-1.4) mg/dL Estim Creat Clear Calc 75.1 Estimated GFR > 60 Random Glucose 92 (60-115) mg/dL Calcium 10.0 D (8.4-10.2) mg/dL Magnesium 1.7 (1.6-2.6) mg/dL Total Bilirubin 0.3 (0.0-1.0) mg/dL Direct Bilirubin 0.1 (0.0-0.5) mg/dL AST 15 (5-31) U/L ALT 8 (0-31) U/L Alkaline Phosphatase 62 (39-117) U/L Total Protein 7.0 (6.5-8.0) g/dL Albumin 4.8 (3.5-5.0) g/dL Lipase 50 (8-78) U/L Urine Color Urine Appearance Urine pH (5.0-9.0) Ur Specific [place] (1.005-1.025) Urine Protein (Neg-Trace) mg/dL Urine Glucose (UA) (Negative) mg/dL Urine Ketones (Negative) mg/dL Urine Blood (Negative) Urine Nitrite (Negative) Ur Leukocyte Esterase (Negative) Urine Test (NEGATIVE) Salicylates < 5.0 L (15-30) mg/dL Urine Opiates Screen Not Detected (Not Detect) Urine Fentanyl Screen POSITIVE H (Not Detect) Acetaminophen < 17 (<30) mcg/mL Ur Barbiturates Screen Not Detected (Not Detect) Valproic Acid < 12.5 L (50.0-100.0) mcg/mL Ur Phencyclidine Scrn Not Detected (Not Detect) Ur Amphetamines Screen Not Detected (Not Detect) U Benzodiazepines Scrn Not Detected (Not Detect) Urine Cocaine Screen Not Detected (Not Detect) U Marijuana (THC) Screen POSITIVE H (Not Detect) Ethyl Alcohol < 10 mg/dL COVID-19 (SALLY) (Negative) COVID-19 Clin Com 01/14/23 01/14/23 01/14/23 Range/Units 13:56 14:50 14:50 WBC 13.9 H (4.8-10.8) X10*3/uL RBC 4.64 (4.20-5.50) X10*6/uL Hgb 13.7 (12.0-16.0) g/dl Hct 41.2 (37.0-47.0) % MCV 88.8 (80.0-98.0) fL MCH 29.5 (27.0-33.0) pg MCHC 33.3 (31.0-35.0) g/dl RDW 14.6 (11.0-16.0) % Plt Count 402 H (160-400) X10*3/uL MPV 9.3 L (9.4-12.3) fL Immature Gran % (Auto) 0.3 (0.0-0.4) % Neut % (Auto) 83.6 H (45-73) % Lymph % (Auto) 8.5 L (20-40) % Levy % (Auto) 7.0 (2-11) % Eos % (Auto) 0.1 (0-4) % Baso % (Auto) 0.5 (0-2) % Lymph # (Auto) 1.2 (1.2-4.9) X10*3/uL Levy # (Auto) 1.0 (0.1-1.2) X10*3/uL Eos # (Auto) 0.0 (0.0-0.4) X10*3/uL Baso # (Auto) 0.1 (0.0-0.2) X10*3/uL Abs Immat Gran (auto) 0.04 H (0.00-0.03) X10*3/uL Absolute Neuts (auto) 11.7 H (2.0-8.3) x10*3/uL Absolute Nucleated RBC 0.000 (0.0-0.012) X10*3/uL Nucleated RBC % (auto) 0.0 (0.0-0.2) /100WBC Sodium (135-145) mmol/L Potassium (3.3-5.1) mmol/L Chloride (96-108) mmol/L Carbon Dioxide (22-29) mmol/L Anion Gap (12-20) BUN (9-16) mg/dL Creatinine (0.5-1.4) mg/dL Estim Creat Clear Calc Estimated GFR Random Glucose (60-115) mg/dL Calcium (8.4-10.2) mg/dL Magnesium (1.6-2.6) mg/dL Total Bilirubin (0.0-1.0) mg/dL Direct Bilirubin (0.0-0.5) mg/dL AST (5-31) U/L ALT (0-31) U/L Alkaline Phosphatase (39-117) U/L Total Protein (6.5-8.0) g/dL Albumin (3.5-5.0) g/dL Lipase (8-78) U/L Urine Color Yellow Urine Appearance Clear Urine pH 7.0 (5.0-9.0) Ur Specific [place] 1.010 (1.005-1.025) Urine Protein Negative (Neg-Trace) mg/dL Urine Glucose (UA) Negative (Negative) mg/dL Urine Ketones Negative (Negative) mg/dL Urine Blood Negative (Negative) Urine Nitrite Negative (Negative) Ur Leukocyte Esterase Negative (Negative) Urine Test NEGATIVE (NEGATIVE) Salicylates (15-30) mg/dL Urine Opiates Screen (Not Detect) Urine Fentanyl Screen (Not Detect) Acetaminophen (<30) mcg/mL Ur Barbiturates Screen (Not Detect) Valproic Acid (50.0-100.0) mcg/mL Ur Phencyclidine Scrn (Not Detect) Ur Amphetamines Screen (Not Detect) U Benzodiazepines Scrn (Not Detect) Urine Cocaine Screen (Not Detect) U Marijuana (THC) Screen (Not Detect) Ethyl Alcohol mg/dL COVID-19 (SALLY) (Negative) COVID-19 Clin Com 01/14/23 Range/Units 14:51 WBC (4.8-10.8) X10*3/uL RBC (4.20-5.50) X10*6/uL Hgb (12.0-16.0) g/dl Hct (37.0-47.0) % MCV (80.0-98.0) fL MCH (27.0-33.0) pg MCHC (31.0-35.0) g/dl RDW (11.0-16.0) % Plt Count (160-400) X10*3/uL MPV (9.4-12.3) fL Immature Gran % (Auto) (0.0-0.4) % Neut % (Auto) (45-73) % Lymph % (Auto) (20-40) % [place] % (Auto) (2-11) % Eos % (Auto) (0-4) % Baso % (Auto) (0-2) % Lymph # (Auto) (1.2-4.9) X10*3/uL [place] # (Auto) (0.1-1.2) X10*3/uL Eos # (Auto) (0.0-0.4) X10*3/uL Baso # (Auto) (0.0-0.2) X10*3/uL Abs Immat Gran (auto) (0.00-0.03) X10*3/uL Absolute Neuts (auto) (2.0-8.3) x10*3/uL Absolute Nucleated RBC (0.0-0.012) X10*3/uL Nucleated RBC % (auto) (0.0-0.2) /100WBC Sodium (135-145) mmol/L Potassium (3.3-5.1) mmol/L Chloride (96-108) mmol/L Carbon Dioxide (22-29) mmol/L Anion Gap (12-20) BUN (9-16) mg/dL Creatinine (0.5-1.4) mg/dL Estim Creat Clear Calc Estimated GFR Random Glucose (60-115) mg/dL Calcium (8.4-10.2) mg/dL Magnesium (1.6-2.6) mg/dL Total Bilirubin (0.0-1.0) mg/dL Direct Bilirubin (0.0-0.5) mg/dL AST (5-31) U/L ALT (0-31) U/L Alkaline Phosphatase (39-117) U/L Total Protein (6.5-8.0) g/dL Albumin (3.5-5.0) g/dL Lipase (8-78) U/L Urine Color Urine Appearance Urine pH (5.0-9.0) Ur Specific [place] (1.005-1.025) Urine Protein (Neg-Trace) mg/dL Urine Glucose (UA) (Negative) mg/dL Urine Ketones (Negative) mg/dL Urine Blood (Negative) Urine Nitrite (Negative) Ur Leukocyte Esterase (Negative) Urine Test (NEGATIVE) Salicylates (15-30) mg/dL Urine Opiates Screen (Not Detect) Urine Fentanyl Screen (Not Detect) Acetaminophen (<30) mcg/mL Ur Barbiturates Screen (Not Detect) Valproic Acid (50.0-100.0) mcg/mL Ur Phencyclidine Scrn (Not Detect) Ur Amphetamines Screen (Not Detect) U Benzodiazepines Scrn (Not Detect) Urine Cocaine Screen (Not Detect) U Marijuana (THC) Screen (Not Detect) Ethyl Alcohol mg/dL COVID-19 (SALLY) Negative (Negative) COVID-19 Clin Com See Note <Yan Underwood - Last Filed: 01/14/23 17:49> Radiology Impression Discussion of test interpretation with radiology: I have reviewed the radiologist's reading. <GILMA Reyna - Last Filed: 01/14/23 16:38> External Record Review External record reviewed: Inpatient record, Office record, Outpatient record, Prior outpatient labs, Prior outpatient radiology, Primary care record and Outside ED record <GILMA Reyna - Last Filed: 01/14/23 16:38> Discharge Plan Discharge Clinical Impression: Psychosis <GILMA Reyna - Last Filed: 01/14/23 16:38> Patient Disposition: Still a Patient <GILMA Reyna - Last Filed: 01/14/23 16:38> Prescriptions: No Action tizanidine 4 mg tablet 4 tab PO BEDTIME folic acid 1 mg tablet 1 tab PO BEDTIME divalproex 500 mg tablet extended release 24 hr 500 mg PO BID olanzapine 10 mg tablet 3 tab PO BEDTIME 30 Days Qty: 90 0RF mirtazapine 15 mg tablet 3 tab PO BEDTIME 30 Days Qty: 90 0RF prazosin 2 mg capsule 4 mg PO BEDTIME vitamin B complex Tablet 1 tab PO BEDTIME ascorbic acid (vitamin C) 500 mg Tablet,Chewable 500 mg PO BEDTIME <GILMA Reyna - Last Filed: 01/14/23 16:38> Interventions: Robertson-Suicide Risk Severity Scale Last Done: 01/14/23 12:10 <GILMA Reyna - Last Filed: 01/14/23 16:38>
--- NOTE | 2023-01-14 12:01 | ECG_ITS ---
Test Reason : ams Blood Pressure : / mmHG Vent. Rate : 090 BPM Atrial Rate : 090 BPM P-R Int : 146 ms QRS Dur : 080 ms QT Int : 402 ms P-R-T Axes : 027 018 036 degrees QTc Int : 491 ms Normal sinus rhythm Prolonged QT Abnormal ECG When compared with ECG of 28-SEP-2022 13:30, Nonspecific T wave abnormality now evident in Inferior leads T wave amplitude has decreased in Anterolateral leads Referred By: Liya Milton Electronically Signed By:PATSY KEYS MD
[2023-01-14 12:04] VITALS: BP 140/80; PULSE 98; RESP 20; TEMP 36.9; O2SAT 97; BMI 22.6
--- NOTE | 2023-01-14 12:10 | PC.NURSE ---
pt alert, oriented to place. Pt believed they were at [facility] as they wanted to go there. Pt shaky, speaking in jumbled sentences. Not combative. Vitals stable will cont to susan
[2023-01-14] MEDS: LORazepam 1 MG TABLET PO (12:49)
[2023-01-14 13:12] LABS: Valproate < 12.5 mcg/mL (50.0-100.0)
[2023-01-14 13:35] LABS: Acetaminophen LAB < 17 mcg/mL (<30); Alanine Aminotransferase 8 U/L (0-31); Albumin Level 4.8 g/dL (3.5-5.0); Alkaline Phosphatase 62 U/L (39-117); Anion Gap 18 (12-20); Aspartate Amino Transferase 15 U/L (5-31); Bilirubin Direct 0.1 mg/dL (0.0-0.5); Bilirubin Total 0.3 mg/dL (0.0-1.0); Blood Urea Nitrogen 11 mg/dL (9-16); Carbon Dioxide 23 mmol/L (22-29); Chloride 105 mmol/L (96-108); Creatinine Clr Calc Pharmacy 75.1; Estimated Glomerular Filt Rate > 60; Ethanol < 10 mg/dL; Glucose Random 92 mg/dL (60-115); Lipase 50 U/L (8-78); Magnesium 1.7 mg/dL (1.6-2.6); Potassium 3.8 mmol/L (3.3-5.1); Salicylate < 5.0 mg/dL (15-30); Sodium 142 mmol/L (135-145)
[2023-01-14 14:14] LABS: UPreg QC Valid YES; Urine Pregnancy NEGATIVE (NEGATIVE)
[2023-01-14 14:17] LABS: Amphetamine Screen Urine Not Detected (Not Detect); Barbiturates, Urine Not Detected (Not Detect); Benzodiazepines Screen Urine Not Detected (Not Detect); Cannabinoid Screen Urine POSITIVE (Not Detect); Cocaine Screen Urine Not Detected (Not Detect); Fentanyl, urine POSITIVE (Not Detect); Opiate Screen Urine Not Detected (Not Detect); Phencyclidine Screen Urine Not Detected (Not Detect)
[2023-01-14 14:58] LABS: MANUAL DIFF FLAG NO
[2023-01-14 15:01] LABS: Basophils Absolute Auto 0.1 X10*3/uL (0.0-0.2); Basophils Percent Auto 0.5 % (0-2); Eosinophils Percent Auto 0.1 % (0-4); Hematocrit 41.2 % (37.0-47.0); Hemoglobin 13.7 g/dl (12.0-16.0); Imm Gran Abs Auto 0.04 X10*3/uL (0.00-0.03); Imm Gran Pct Auto 0.3 % (0.0-0.4); Lymphocytes Absolute Auto 1.2 X10*3/uL (1.2-4.9); Lymphocytes Percent Auto 8.5 % (20-40); Mean Corpuscular HGB Conc 33.3 g/dl (31.0-35.0); Mean Corpuscular Hemoglobin 29.5 pg (27.0-33.0); Mean Corpuscular Volume 88.8 fL (80.0-98.0); Mean Platelet Volume 9.3 fL (9.4-12.3); Neutrophils Absolute Auto 11.7 x10*3/uL (2.0-8.3); Neutrophils Percent Auto 83.6 % (45-73); Platelet Count 402 X10*3/uL (160-400); Red Blood Count 4.64 X10*6/uL (4.20-5.50); Red Cell Distribution Width 14.6 % (11.0-16.0); White Blood Count 13.9 X10*3/uL (4.8-10.8)
[2023-01-14 15:07] LABS: Appearance Urine Clear; Color Urine Yellow; Glucose Urine UA Negative (Negative); Leukocyte Esterase Urine Negative (Negative); Nitrite Urine Negative (Negative); Urine Blood Negative (Negative); Urine Ketones Negative (Negative); Urine Protein Negative (Neg-Trace)
[2023-01-14 15:13] LABS: COVID-19 Test Negative (Negative); IDNOW Serial# 55D5AD1C
[2023-01-14 15:16] VITALS: BP 121/70; PULSE 76; RESP 18; TEMP 36.4; O2SAT 98
[2023-01-14 16:00] VITALS: BP 145/92; PULSE 71; RESP 18; O2SAT 98
[2023-01-14] MEDS: Magnesium Sulfate/H2O 2 GM/50 ML PIGGYBACK IV (16:01)
[2023-01-14] MEDS: Potassium Chloride ER 20 MEQ TAB.ER.PRT 40 MEQ PO (16:22)
--- NOTE | 2023-01-14 16:22 | PC.NURSE ---
pt medicated per NOV. Mag running.
--- NOTE | 2023-01-14 16:49 | PHA.MEDREC ---
Pharmacy Consult ? Medication Reconciliation Pharmacy has completed the medication reconciliation. SPOKE WITH PT
--- NOTE | 2023-01-14 16:59 | ECG_ITS ---
Test Reason : check QTc Blood Pressure : / mmHG Vent. Rate : 076 BPM Atrial Rate : 076 BPM P-R Int : 154 ms QRS Dur : 076 ms QT Int : 420 ms P-R-T Axes : 000 160 139 degrees QTc Int : 472 ms Suspect limb lead reversal, interpretation assumes no reversal Normal sinus rhythm Anterolateral infarct , age undetermined Abnormal ECG When compared with ECG of 14-JAN-2023 13:06, QRS axis Shifted right T wave inversion now evident in Lateral leads Referred By: Yan Underwood Electronically Signed By:PATSY KEYS MD
[2023-01-14] MEDS: 0.9 % Sodium Chloride 1,000 ML 999 ML IV (17:12)
--- NOTE | 2023-01-14 17:13 | PC.NURSE ---
pt alert, chatting qwith nurses and staff and recently met with behavior health. pt is shaky and a little hyperactive, but not agitated or combative. Pt denies SI/HI at this time but did say that they have thoughts of SI in the past, with no plan. PT resting comfortably.
--- NOTE | 2023-01-14 17:16 | PC.NURSE ---
pt oscillates between being aware and unaware of current situation/who they are talking to.
[2023-01-14 18:43] VITALS: BP 140/84; PULSE 69; RESP 18; TEMP 36.6; O2SAT 96
[2023-01-14] MEDS: LORazepam 1 MG TABLET 2 MG PO ×2 (19:22→23:19)
[2023-01-14 22:30] VITALS: BMI 21.9
[2023-01-14 22:31] VITALS: BP 125/77; PULSE 86; TEMP 36.8; O2SAT 100
[2023-01-14] MEDS: hydrOXYzine HCL 25 MG TABLET PO (23:19)
[2023-01-14] MEDS: traZODone HCL 50 MG TABLET PO (23:19)
--- NOTE | 2023-01-15 00:44 | PC.NURSE ---
CIWA at 0000-not done as patient is asleep. was scored prior to and received 2mg ativan prn as ordered.
--- NOTE | 2023-01-15 01:46 | PC.ADMIT ---
for admission 01/14/23-this is one [facility] to the [facility]. legal CV. dx: schizoaffective d/o. was a referral from the CARE team from the [facility]. nurse to nurse, collateral information obtained prior to admission. presents as wide eyed and anxious reporting poor sleep, concentration and ''very anxious 10/10 and the same with depression'' when questioned about calling 911 stated ''I did not, my roommate did'' per CARE assessment patient had been in the ER x4 for assessment. denies SI and stated ''If I don't get any sleep soon things could change'' reported ''I haven't slept in 2 weeks'' when questioned about report of an empty bottle of trazodone and alcohol at the home stated ''I threw out the trazodone, it doesn't help'' when questioned about alcohol intake reported ''i had 2 beers'' i haven't drank heavily in years and I don't use cocaine anymore'' does report use of marijuana in the form of edibles from a dispensary. reports being unsure as to why her HURLEY was + for fentanyl. concentration is poor causing her to appear confused but able to answer assessment questions when given time to offer. no changes in medical status since last admission. oriented to unit. medication reconciliation done in ER. safety tool completed. treatment plan initiated. would like to see if she could find new treatment providers.
[2023-01-15 07:53] LABS: Alanine Aminotransferase 6 U/L (0-31); Albumin Level 4.2 g/dL (3.5-5.0); Alkaline Phosphatase 55 U/L (39-117); Anion Gap 13 (12-20); Aspartate Amino Transferase 13 U/L (5-31); Bilirubin Total 0.8 mg/dL (0.0-1.0); Blood Urea Nitrogen 7 mg/dL (9-16); Calcium 9.2 mg/dL (8.4-10.2); Carbon Dioxide 24 mmol/L (22-29); Chloride 108 mmol/L (96-108); Cholesterol 184 mg/dL; Creatinine Clr Calc Pharmacy 83.4; Estimated Glomerular Filt Rate > 60; Glucose Fasting 77 mg/dL (60-99); HDL Cholesterol 65 mg/dL; LDL Cholesterol Calculated 98 mg/dl; Potassium 4.2 mmol/L (3.3-5.1); Sodium 141 mmol/L (135-145); Total Protein 6.1 g/dL (6.5-8.0); Triglycerides 109 mg/dL
[2023-01-15] MEDS: Divalproex Sodium ER 500 MG TAB.ER.24H PO ×2 (08:37→20:28)
[2023-01-15] MEDS: LORazepam 1 MG TABLET 2 MG PO ×3 (08:37→18:02)
[2023-01-15 08:49] VITALS: BP 105/65; PULSE 85; RESP 18; TEMP 36.7; O2SAT 100
[2023-01-15] MEDS: Simethicone 80 MG TAB.CHEW PO ×2 (13:14→18:03)
--- NOTE | 2023-01-15 17:10 | HO.PSYADMNOT ---
HPI Date of Service: 01/15/23 Chief Complaint: Psychosis HPI Narrative: pt was apparently delirious at her home and spoke to a friend on the phone who called 911 out of concern for pt's state. police made a welfare check and observed a couple of empty beer cans as well as an empty bottle of trazodone, filled 01/08, for one month's worth. on interview with and CHANDLER hammond, pt reports she can't shut down my thoughts and has not slept for two weeks. she states she has not been wanting to go out, feeling more depressed. after her most recent stay at [facility] in 10/08 she was able to sleep for a time, and ultimately became unable to. on review of meds, it appears that the lyrica that had been started at last admission had not been continued. pt repeatedly requests ambien, which MD declines to prescribe. pt agrees to restart lyrica, asks for some other sedating medication. agrees to switch out olanzapine for thorazine (later in the day decides against this). pt signed 3-day notice today. Past Psychiatric History: -past meds: seroquel, haldol, wellbutrin, klonopin, ambien, celexa, -pt has had 5 previous inpatient stays at [facility] no h/o SA, SIB. OP: currently reconnecting with [facility] as she no longer sees Kylie Talley due to several no show appointment. Medical Evaluation Reviewed: Yes [facility] Medical History Anal fissure Anemia Anxiety Cervical radiculitis Cervical spinal cord compression Gonsalves hemangioma Chronic diarrhea Chronic narcotic use Chronic night sweats Chronic pain Contact dermatitis Cough Depression Dysconjugate gaze Dysuria Failed back surgical syndrome Fibromyalgia Gastric stress ulcer Gluteal pain Irritable bowel syndrome Left rib fracture Leg weakness Leukocytosis Low back pain Low ferritin Lumbar radiculitis Lumbar radiculopathy, chronic Medication side effects Mental status change resolved Muscle spasm Neck pain Panic attacks Paralysis Paresthesia of right upper limb 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 has 3 older brothers and 1 younger. Met developmental milestones as expected, graduated high school, bachelor's degree. 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 -no longer lives with her now former boyfriend, bryn, as the relationship has ended since last discharge 09/12/22. son lives with her brother. she reports she is about to receive a court order allowing only for supervised visits with her son. Substance History: h/o sed/hypnotic abuse, cocaine abuse Trauma History: none divulged Diagnostics Vital Signs (24Hr): Vital Signs - 24 hr 01/14/23 18:43 01/14/23 22:31 01/15/23 08:49 Temperature 97.8 F 98.3 F 98.1 F Pulse Rate 69 86 85 Respiratory Rate 18 18 Blood Pressure 140/84 H 125/77 105/65 Pulse Oximetry 96 100 100 Oxygen Delivery Method Room Air Room Air Room Air BMI result Body Mass Index 21.9 Labs 01/14/23 14:50 01/15/23 06:52 Labs: Laboratory Results - last 48 hr 01/14/23 01/14/23 01/14/23 12:51 12:51 13:56 WBC RBC Hgb Hct MCV MCH MCHC RDW Plt Count MPV Immature Gran % (Auto) Neut % (Auto) Lymph % (Auto) [place] % (Auto) Eos % (Auto) Baso % (Auto) Lymph # (Auto) [place] # (Auto) Eos # (Auto) Baso # (Auto) Abs Immat Gran (auto) Absolute Neuts (auto) Absolute Nucleated RBC Nucleated RBC % (auto) Sodium 142 Potassium 3.8 Chloride 105 Carbon Dioxide 23 Anion Gap 18 BUN 11 Creatinine 0.81 Estim Creat Clear Calc 75.1 Estimated GFR > 60 Random Glucose 92 Fasting Glucose Calcium 10.0 D Magnesium 1.7 Total Bilirubin 0.3 Direct Bilirubin 0.1 AST 15 ALT 8 Alkaline Phosphatase 62 Total Protein 7.0 Albumin 4.8 Triglycerides Cholesterol LDL Cholesterol, Calc HDL Cholesterol Lipase 50 Urine Color Urine Appearance Urine pH Ur Specific [place] Urine Protein Urine Glucose (UA) Urine Ketones Urine Blood Urine Nitrite Ur Leukocyte Esterase Urine Test Salicylates < 5.0 L Urine Opiates Screen Not Detected Urine Fentanyl Screen POSITIVE H Acetaminophen < 17 Ur Barbiturates Screen Not Detected Valproic Acid < 12.5 L Ur Phencyclidine Scrn Not Detected Ur Amphetamines Screen Not Detected U Benzodiazepines Scrn Not Detected Urine Cocaine Screen Not Detected U Marijuana (THC) Screen POSITIVE H Ethyl Alcohol < 10 COVID-19 (SALLY) COVID-19 [employer] Com 01/14/23 01/14/23 01/14/23 13:56 14:50 14:50 WBC 13.9 H RBC 4.64 Hgb 13.7 Hct 41.2 MCV 88.8 MCH 29.5 MCHC 33.3 RDW 14.6 Plt Count 402 H MPV 9.3 L Immature Gran % (Auto) 0.3 Neut % (Auto) 83.6 H Lymph % (Auto) 8.5 L [place] % (Auto) 7.0 Eos % (Auto) 0.1 Baso % (Auto) 0.5 Lymph # (Auto) 1.2 [place] # (Auto) 1.0 Eos # (Auto) 0.0 Baso # (Auto) 0.1 Abs Immat Gran (auto) 0.04 H Absolute Neuts (auto) 11.7 H Absolute Nucleated RBC 0.000 Nucleated RBC % (auto) 0.0 Sodium Potassium Chloride Carbon Dioxide Anion Gap BUN Creatinine Estim Creat Clear Calc Estimated GFR Random Glucose Fasting Glucose Calcium Magnesium Total Bilirubin Direct Bilirubin AST ALT Alkaline Phosphatase Total Protein Albumin Triglycerides Cholesterol LDL Cholesterol, Calc HDL Cholesterol Lipase Urine Color Yellow Urine Appearance Clear Urine pH 7.0 Ur Specific [place] 1.010 Urine Protein Negative Urine Glucose (UA) Negative Urine Ketones Negative Urine Blood Negative Urine Nitrite Negative Ur Leukocyte Esterase Negative Urine Test NEGATIVE Salicylates Urine Opiates Screen Urine Fentanyl Screen Acetaminophen Ur Barbiturates Screen Valproic Acid Ur Phencyclidine Scrn Ur Amphetamines Screen U Benzodiazepines Scrn Urine Cocaine Screen U Marijuana (THC) Screen Ethyl Alcohol COVID-19 (SALLY) COVID-19 [employer] Com 01/14/23 01/15/23 14:51 06:52 WBC RBC Hgb Hct MCV MCH MCHC RDW Plt Count MPV Immature Gran % (Auto) Neut % (Auto) Lymph % (Auto) [place] % (Auto) Eos % (Auto) Baso % (Auto) Lymph # (Auto) [place] # (Auto) Eos # (Auto) Baso # (Auto) Abs Immat Gran (auto) Absolute Neuts (auto) Absolute Nucleated RBC Nucleated RBC % (auto) Sodium 141 Potassium 4.2 Chloride 108 Carbon Dioxide 24 Anion Gap 13 BUN 7 L Creatinine 0.73 Estim Creat Clear Calc 83.4 Estimated GFR > 60 Random Glucose Fasting Glucose 77 Calcium 9.2 D Magnesium Total Bilirubin 0.8 Direct Bilirubin AST 13 ALT 6 Alkaline Phosphatase 55 Total Protein 6.1 L Albumin 4.2 Triglycerides 109 Cholesterol 184 LDL Cholesterol, Calc 98 HDL Cholesterol 65 Lipase Urine Color Urine Appearance Urine pH Ur Specific [place] Urine Protein Urine Glucose (UA) Urine Ketones Urine Blood Urine Nitrite Ur Leukocyte Esterase Urine Test Salicylates Urine Opiates Screen Urine Fentanyl Screen Acetaminophen Ur Barbiturates Screen Valproic Acid Ur Phencyclidine Scrn Ur Amphetamines Screen U Benzodiazepines Scrn Urine Cocaine Screen U Marijuana (THC) Screen Ethyl Alcohol COVID-19 (SALLY) Negative COVID-19 Clin Com See Note Meds/Allergies Meds Home Medications Medication Instructions Recorded Confirmed Type tizanidine 4 mg tablet 4 tab PO BEDTIME 09/05/22 01/14/23 History divalproex 500 mg tablet,extended 500 mg PO BID 09/27/22 01/14/23 History release 24 hr folic acid 1 mg tablet 1 tab PO BEDTIME 09/27/22 01/14/23 History ascorbic acid (vitamin C) 500 mg 500 mg PO BEDTIME 01/14/23 01/14/23 History chewable tablet prazosin 2 mg capsule 4 mg PO BEDTIME 01/14/23 01/14/23 History vitamin B complex 1 tab PO BEDTIME 01/14/23 01/14/23 History Allergies Allergies Allergy/AdvReac Type Severity Reaction Status Date / Time duloxetine [From CYMBALTA] Allergy Unknown Hallucinati Verified 09/27/22 08:43 ons morphine [MORPHINE] Allergy Unknown HALLUCINATI Verified 09/27/22 08:43 ONS Phenylpiperazine AdvReac Severe hallucinati Verified 09/27/22 08:43 Antidepressant ons Tetracyclic Antidepressants AdvReac Severe hallucinati Verified 09/27/22 08:43 ons fentanyl [FENTANYL] AdvReac Unknown Hallucinati Verified 09/27/22 08:43 ons Mental Status Exam Mental Status Exam Narrative: wearing street clothes. cooperative. no PMA/PMR. speech incr rate, amount. nml loudness, decr latency. thoughts linear and organized. affect normo-intense, flexible, non-labile. mood flat. no SI/SIBI/HI/AVH. 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 start lyrica for neuropathic pain which prevents adequate sleep. otherwise continue previous plan. pt had originally agreed to DC olanzapine and try thorazine but later in the day changed her mind. Patient educated on: diagnosis, medication risk/benefits and substance abuse Reason for continued inpatient stay Substantial Risk for: rapid decompensation Statement Statement: I have reviewed the history and physical and performed a pertinent examination on my patient. No changes have occurred unless specified. If the History and Physical was not performed prior to admission, the Hospitalist's service will be consulted for completing the admission physical. Time Spent With Patient Time: Total time managing care of this patient today _55___ minutes.
[2023-01-15] MEDS: Multivitamin TABLET 1 TAB PO (20:27)
[2023-01-15] MEDS: TiZANidine HCL 4 MG TABLET 16 MG PO (20:27)
[2023-01-15] MEDS: OLANZapine 10 MG TABLET 30 MG PO (20:27)
[2023-01-15] MEDS: Mirtazapine 15 MG TABLET 45 MG PO (20:27)
[2023-01-15] MEDS: Prazosin HCL 1 MG CAPSULE 4 MG PO (20:27)
[2023-01-15] MEDS: Folic Acid 1 MG TABLET PO (20:28)
[2023-01-15] MEDS: Ascorbic Acid 500 MG TABLET PO (20:28)
[2023-01-15 20:31] VITALS: BP 107/72; PULSE 97; TEMP 36.7; O2SAT 96
--- NOTE | 2023-01-16 00:16 | PC.NURSE ---
0000 CIWA- not done. patient observed sleeping. no distress, no diaphoresis or restlessness noted.
[2023-01-16 09:16] VITALS: BP 113/55; PULSE 76; RESP 18; TEMP 36.6; O2SAT 100
[2023-01-16] MEDS: Simethicone 80 MG TAB.CHEW PO ×3 (09:25→18:15)
[2023-01-16] MEDS: Divalproex Sodium ER 500 MG TAB.ER.24H PO (09:25)
[2023-01-16] MEDS: Pregabalin 50 MG CAPSULE PO ×2 (09:26→14:41)
[2023-01-16] MEDS: LORazepam 1 MG TABLET 2 MG PO ×3 (11:21→21:24)
--- NOTE | 2023-01-16 15:29 | HO.PSYCHPN ---
Subjective Subjective Date of Service: 01/16/23 Reason For Visit: Psychosis Interim History: reports she slept a few hours overnight. not engaged. presents as if perfunctorily attending interview. asking for increase in lyrica dosing. agreeable to increase prazosin and change VPA to all HS as well. per staff, 3-day up . poor sleep. anxious, isolative. lying down much of the day. reporting no sleep but appears to have slept throguh the night. CIWA 5, 4, 1, 2. Mental Status Exam Mental Status Exam Narrative: wearing street clothes. cooperative. no PMA/PMR. speech nml rate, decr amount. nml loudness, nml latency. thoughts linear and organized. affect hypo-intense, constricted, non-labile. no SI/SIBI/HI/AVH expressed. Diagnostics Vital Signs (24Hr): Vital Signs - 24 hr 01/15/23 20:31 01/16/23 09:16 Temperature 98.1 F 97.8 F Pulse Rate 97 76 Respiratory Rate 18 Blood Pressure 107/72 113/55 L Pulse Oximetry 96 100 Oxygen Delivery Method Room Air BMI result Body Mass Index 21.9 Labs 01/14/23 14:50 01/15/23 06:52 Labs: Laboratory Results - last 48 hr 01/15/23 06:52 Sodium 141 Potassium 4.2 Chloride 108 Carbon Dioxide 24 Anion Gap 13 BUN 7 L Creatinine 0.73 Estim Creat Clear Calc 83.4 Estimated GFR > 60 Fasting Glucose 77 Calcium 9.2 D Total Bilirubin 0.8 AST 13 ALT 6 Alkaline Phosphatase 55 Total Protein 6.1 L Albumin 4.2 Triglycerides 109 Cholesterol 184 LDL Cholesterol, Calc 98 HDL Cholesterol 65 Medications Medications Current Medications Acetaminophen (Acetaminophen 325 Mg Tablet) 650 mg PO Q6H PRN PRN Reason: Headache/Pain Mild Scale (1-3) Al Hydroxide/Mg Hydroxide (Magnesium Hydrox/Alum Hydrox 30 Ml Oral.Susp) 30 ml PO Q6H PRN PRN Reason: Heartburn/Nausea Ascorbic Acid (Ascorbic Acid 500 Mg Tablet) 500 mg PO BEDTIME [facility] Last Admin: 01/15/23 20:28 Dose: 500 mg Divalproex Sodium (Divalproex Sodium Er 500 Mg Tab.Er.24h) 1,000 mg PO BID [facility] Folic Acid (Folic Acid 1 Mg Tablet) 1 mg PO BEDTIME [facility] Last Admin: 01/15/23 20:28 Dose: 1 mg Hydroxyzine HCl (Hydroxyzine Hcl 25 Mg Tablet) 25 mg PO Q6H PRN PRN Reason: Anxiety Last Admin: 01/14/23 23:19 Dose: 25 mg Lorazepam (Lorazepam 1 Mg Tablet) 2 mg PO Q4H PRN PRN Reason: Alcohol Withdrawal Last Admin: 01/16/23 11:21 Dose: 2 mg Magnesium Hydroxide (Milk Of Magnesia 30 Ml Oral.Susp) 30 ml PO DAILY PRN PRN Reason: Constipation Mirtazapine (Mirtazapine 15 Mg Tablet) 45 mg PO BEDTIME [facility] Last Admin: 01/15/23 20:27 Dose: 45 mg Multivitamins/Vitamin C (Multivitamin Tablet) 1 tab PO BEDTIME [facility] Last Admin: 01/15/23 20:27 Dose: 1 tab Olanzapine (Olanzapine 10 Mg Tablet) 30 mg PO BEDTIME [facility] Last Admin: 01/15/23 20:27 Dose: 30 mg Prazosin HCl (Prazosin Hcl 5 Mg Capsule) 5 mg PO BEDTIME [facility]; Protocol Pregabalin (Pregabalin 75 Mg Capsule) 75 mg PO TID [facility] Simethicone (Simethicone 80 Mg Tab.Chew) 80 mg PO QIDWMHS [facility] Last Admin: 01/16/23 12:32 Dose: 80 mg Tizanidine HCl (Tizanidine Hcl 4 Mg Tablet) 16 mg PO BEDTIME [facility] Last Admin: 01/15/23 20:27 Dose: 16 mg Allergies Allergies Allergy/AdvReac Type Severity Reaction Status Date / Time duloxetine [From CYMBALTA] Allergy Unknown Hallucinati Verified 09/27/22 08:43 ons morphine [MORPHINE] Allergy Unknown HALLUCINATI Verified 09/27/22 08:43 ONS Phenylpiperazine AdvReac Severe hallucinati Verified 09/27/22 08:43 Antidepressant ons Tetracyclic Antidepressants AdvReac Severe hallucinati Verified 09/27/22 08:43 ons fentanyl [FENTANYL] AdvReac Unknown Hallucinati Verified 09/27/22 08:43 ons Assessment & Plan Assessment & Plan (1) Bipolar disorder: Status: Acute Code(s): F31.9 - Bipolar disorder, unspecified (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 start lyrica for neuropathic pain which prevents adequate sleep. otherwise continue previous plan. pt had originally agreed to DC olanzapine and try thorazine but later in the day changed her mind. 01/16: increase lyrica from 50 TID to 75 TID as of tonight. increase prazosin from 4 mg to 5 mg QHS. consolidate all VPA at HS. reported she slept several hours last night. per staff appeared to have slept through the night. 3-day up saturday. Reason for continued inpatient stay Substantial Risk for: harm to self and rapid decompensation Time Spent With Patient Time: Total time managing care of this patient today ____ minutes.
[2023-01-16 16:34] VITALS: BP 120/74; PULSE 87; RESP 16; TEMP 36.3; O2SAT 98
[2023-01-16] MEDS: Prazosin HCL 5 MG CAPSULE PO (20:34)
[2023-01-16] MEDS: TiZANidine HCL 4 MG TABLET 16 MG PO (20:34)
[2023-01-16] MEDS: Acetaminophen 325 MG TABLET 650 MG PO (20:36)
[2023-01-16] MEDS: Mirtazapine 15 MG TABLET 45 MG PO (20:38)
[2023-01-16] MEDS: Ascorbic Acid 500 MG TABLET PO (20:39)
[2023-01-16] MEDS: Divalproex Sodium ER 500 MG TAB.ER.24H 1000 MG PO (20:39)
[2023-01-16] MEDS: Folic Acid 1 MG TABLET PO (20:40)
[2023-01-16] MEDS: Multivitamin TABLET 1 TAB PO (20:40)
[2023-01-16] MEDS: OLANZapine 10 MG TABLET 30 MG PO (20:40)
[2023-01-16] MEDS: Pregabalin 75 MG CAPSULE PO (21:24)
--- NOTE | 2023-01-17 05:13 | PC.NURSE ---
Kathrine is noted to be visible and social with select peers throughout the evening. she scored on CIWA X's 1 and received 2 mg of Ativan with positive effect. Patient requested not to be awoken during the night for CIWA assessment. monitor for safety, continue Plan of Care
[2023-01-17 07:00] VITALS: BMI 22.7
[2023-01-17] MEDS: Simethicone 80 MG TAB.CHEW PO ×3 (09:05→18:03)
[2023-01-17] MEDS: Divalproex Sodium ER 500 MG TAB.ER.24H 1000 MG PO ×2 (09:05→20:26)
[2023-01-17] MEDS: Pregabalin 75 MG CAPSULE PO ×3 (09:06→20:27)
--- NOTE | 2023-01-17 09:09 | PC.NURSE ---
Reviewed SHELDON w/ pt. Pt reports tremors are chronic, denies other symptoms at this time.
[2023-01-17 09:15] VITALS: BP 135/66; PULSE 75; RESP 18; TEMP 36.3; O2SAT 97
--- NOTE | 2023-01-17 10:24 | HO.PSYCHPN ---
Subjective Subjective Date of Service: 01/17/23 Reason For Visit: Psychosis Interim History: Met with patient: Discussed with staff Patient lying in bed on approach. She says she has okay and feels ready for discharge tomorrow. She denies any SI; denies any new symptoms of withdrawal. There cover recently increased. Patient denies any complaints and has no further requests. Mental Status Exam Mental Status Exam Narrative: Pt is alert and oriented; behavior is superficially cooperative, calm; patient is not in distress; lying under covers; mood is described as ok and affect congruent; eye contact appropriate; Speech is normal rate, volume and prosody and not pressured; some psychomotor retardation present; thought process is organized and goal directed; Thought content is on discharge; otherwise pertinent to relevant topics and without any delusional content, paranoid ideations or grandiosity; denies any SI/HI. There is no evidence of perceptual disturbance. Patients insight and judgment appear intact. Diagnostics Vital Signs (24Hr): Vital Signs - 24 hr 01/16/23 16:34 01/17/23 09:15 Temperature 97.4 F 97.4 F Pulse Rate 87 75 Respiratory Rate 16 18 Blood Pressure 120/74 135/66 Pulse Oximetry 98 97 Oxygen Delivery Method Room Air Room Air BMI result Body Mass Index 21.9 Labs 01/14/23 14:50 01/15/23 06:52 Medications Medications Current Medications Acetaminophen (Acetaminophen 325 Mg Tablet) 650 mg PO Q6H PRN PRN Reason: Headache/Pain Mild Scale (1-3) Last Admin: 01/16/23 20:36 Dose: 650 mg Al Hydroxide/Mg Hydroxide (Magnesium Hydrox/Alum Hydrox 30 Ml Oral.Susp) 30 ml PO Q6H PRN PRN Reason: Heartburn/Nausea Ascorbic Acid (Ascorbic Acid 500 Mg Tablet) 500 mg PO BEDTIME [facility] Last Admin: 01/16/23 20:39 Dose: 500 mg Divalproex Sodium (Divalproex Sodium Er 500 Mg Tab.Er.24h) 1,000 mg PO BID PEDRITO Last Admin: 01/17/23 09:05 Dose: 1,000 mg Folic Acid (Folic Acid 1 Mg Tablet) 1 mg PO BEDTIME PEDRITO Last Admin: 01/16/23 20:40 Dose: 1 mg Hydroxyzine HCl (Hydroxyzine Hcl 25 Mg Tablet) 25 mg PO Q6H PRN PRN Reason: Anxiety Last Admin: 01/14/23 23:19 Dose: 25 mg Lorazepam (Lorazepam 1 Mg Tablet) 2 mg PO Q4H PRN PRN Reason: Alcohol Withdrawal Last Admin: 01/16/23 21:24 Dose: 2 mg Magnesium Hydroxide (Milk Of Magnesia 30 Ml Oral.Susp) 30 ml PO DAILY PRN PRN Reason: Constipation Mirtazapine (Mirtazapine 15 Mg Tablet) 45 mg PO BEDTIME PEDRITO Last Admin: 01/16/23 20:38 Dose: 45 mg Multivitamins/Vitamin C (Multivitamin Tablet) 1 tab PO BEDTIME PEDRITO Last Admin: 01/16/23 20:40 Dose: 1 tab Olanzapine (Olanzapine 10 Mg Tablet) 30 mg PO BEDTIME PEDRITO Last Admin: 01/16/23 20:40 Dose: 30 mg Prazosin HCl (Prazosin Hcl 5 Mg Capsule) 5 mg PO BEDTIME PEDRITO; Protocol Last Admin: 01/16/23 20:34 Dose: 5 mg Pregabalin (Pregabalin 75 Mg Capsule) 75 mg PO TID PEDRITO Last Admin: 01/17/23 09:06 Dose: 75 mg Simethicone (Simethicone 80 Mg Tab.Chew) 80 mg PO QIDWMHS [facility] Last Admin: 01/17/23 09:05 Dose: 80 mg Tizanidine HCl (Tizanidine Hcl 4 Mg Tablet) 16 mg PO BEDTIME PEDRITO Last Admin: 01/16/23 20:34 Dose: 16 mg Allergies Allergies Allergy/AdvReac Type Severity Reaction Status Date / Time duloxetine [From CYMBALTA] Allergy Unknown Hallucinati Verified 09/27/22 08:43 ons morphine [MORPHINE] Allergy Unknown HALLUCINATI Verified 09/27/22 08:43 ONS Phenylpiperazine AdvReac Severe hallucinati Verified 09/27/22 08:43 Antidepressant ons Tetracyclic Antidepressants AdvReac Severe hallucinati Verified 09/27/22 08:43 ons fentanyl [FENTANYL] AdvReac Unknown Hallucinati Verified 09/27/22 08:43 ons Assessment & Plan Assessment & Plan (1) Bipolar disorder: Status: Acute Code(s): F31.9 - Bipolar disorder, unspecified (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 start lyrica for neuropathic pain which prevents adequate sleep. otherwise continue previous plan. pt had originally agreed to DC olanzapine and try thorazine but later in the day changed her mind. 01/16: increase lyrica from 50 TID to 75 TID as of tonight. increase prazosin from 4 mg to 5 mg QHS. consolidate all VPA at HS. reported she slept several hours last night. per staff appeared to have slept through the night. 3-day up saturday. 01/17 patient minimally engaged however says she has doing well enough, no SI, no complaints and no request and feeling ready to discharge tomorrow Proceed with disposition planning per primary team Patient educated on: diagnosis and medication risk/benefits Informed Consent: understands Reason for continued inpatient stay Substantial Risk for: stable for discharge Time Spent With Patient Time: Total time managing care of this patient today ____ minutes.
[2023-01-17 12:21] VITALS: BP 129/65; PULSE 94; RESP 18; O2SAT 98
[2023-01-17] MEDS: LORazepam 1 MG TABLET PO (12:55)
[2023-01-17 18:00] VITALS: BP 130/77; PULSE 107; RESP 20; O2SAT 99
[2023-01-17] MEDS: OLANZapine 10 MG TABLET 30 MG PO (20:25)
[2023-01-17] MEDS: TiZANidine HCL 4 MG TABLET 16 MG PO (20:26)
[2023-01-17] MEDS: Mirtazapine 15 MG TABLET 45 MG PO (20:26)
[2023-01-17] MEDS: Ascorbic Acid 500 MG TABLET PO (20:27)
[2023-01-17] MEDS: Multivitamin TABLET 1 TAB PO (20:27)
[2023-01-17] MEDS: Folic Acid 1 MG TABLET PO (20:27)
[2023-01-17] MEDS: Prazosin HCL 5 MG CAPSULE PO (20:27)
[2023-01-17] MEDS: LORazepam 1 MG TABLET 2 MG PO (20:27)
[2023-01-17 20:30] VITALS: BP 116/79; PULSE 105; RESP 18; TEMP 36.3; O2SAT 98
[2023-01-18 09:50] VITALS: BP 123/61; PULSE 90; RESP 16; TEMP 36.6; O2SAT 96
[2023-01-18] MEDS: Divalproex Sodium ER 500 MG TAB.ER.24H 1000 MG PO (10:02)
[2023-01-18] MEDS: Pregabalin 75 MG CAPSULE PO (10:02)
[2023-01-18] MEDS: Simethicone 80 MG TAB.CHEW PO (10:03)
--- NOTE | 2023-01-18 10:41 | PM.PSYDC ---
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 (3) Cocaine use disorder: Status: Acute DS: Medications Discharge Medications Home Medications: Home Medications Medication Instructions Recorded Confirmed tizanidine 4 mg tablet 4 tab PO BEDTIME 09/05/22 01/14/23 folic acid 1 mg tablet 1 tab PO BEDTIME 09/27/22 01/14/23 ascorbic acid (vitamin C) 500 mg 500 mg PO BEDTIME 01/14/23 01/14/23 chewable tablet vitamin B complex 1 tab PO BEDTIME 01/14/23 01/14/23 Previous Rx's Medication Instructions Recorded olanzapine 10 mg tablet 3 tab PO BEDTIME 30 days #90 tabs 10/08/22 mirtazapine 15 mg tablet 3 tab PO BEDTIME 30 days #90 tabs 10/09/22 divalproex 500 mg tablet,extended 1,000 mg PO BID #0 tabs 01/18/23 release 24 hr prazosin 5 mg capsule 5 mg PO BEDTIME 30 days #30 caps 01/18/23 pregabalin 75 mg capsule (Lyrica) 75 mg PO TID 30 days #90 caps 01/18/23 simethicone 80 mg chewable tablet 80 mg PO QIDWMHS 30 days #120 tabs 01/18/23 (Gas Relief (simethicone)) Mental Status Exam Mental Status Exam Narrative: wearing street clothes. cooperative. no PMA/PMR. speech nml rate, decr amount. nml loudness, nml latency. thoughts linear and organized. affect hypo-intense, constricted, non-labile. mood OK. no SI/SIBI/HI/AVH. Data Data Completed and Pending Completed studies during hospitalization [Text1]: 01/14/23 01/14/23 01/14/23 12:51 12:51 13:56 WBC RBC Hgb Hct MCV MCH MCHC RDW Plt Count MPV Immature Gran % (Auto) Neut % (Auto) Lymph % (Auto) [place] % (Auto) Eos % (Auto) Baso % (Auto) Lymph # (Auto) [place] # (Auto) Eos # (Auto) Baso # (Auto) Abs Immat Gran (auto) Absolute Neuts (auto) Absolute Nucleated RBC Nucleated RBC % (auto) Sodium 142 Potassium 3.8 Chloride 105 Carbon Dioxide 23 Anion Gap 18 BUN 11 Creatinine 0.81 Estim Creat Clear Calc 75.1 Estimated GFR > 60 Random Glucose 92 Fasting Glucose Calcium 10.0 D Magnesium 1.7 Total Bilirubin 0.3 Direct Bilirubin 0.1 AST 15 ALT 8 Alkaline Phosphatase 62 Total Protein 7.0 Albumin 4.8 Triglycerides Cholesterol LDL Cholesterol, Calc HDL Cholesterol Lipase 50 Urine Color Urine Appearance Urine pH Ur Specific [place] Urine Protein Urine Glucose (UA) Urine Ketones Urine Blood Urine Nitrite Ur Leukocyte Esterase Urine Test Salicylates < 5.0 L Urine Opiates Screen Not Detected Urine Fentanyl Screen POSITIVE H Acetaminophen < 17 Ur Barbiturates Screen Not Detected Valproic Acid < 12.5 L Ur Phencyclidine Scrn Not Detected Ur Amphetamines Screen Not Detected U Benzodiazepines Scrn Not Detected Urine Cocaine Screen Not Detected U Marijuana (THC) Screen POSITIVE H Ethyl Alcohol < 10 COVID-19 (SALLY) COVID-19 [employer] [facility] 01/14/23 01/14/23 01/14/23 13:56 14:50 14:50 WBC 13.9 H RBC 4.64 Hgb 13.7 Hct 41.2 MCV 88.8 MCH 29.5 MCHC 33.3 RDW 14.6 Plt Count 402 H MPV 9.3 L Immature Gran % (Auto) 0.3 Neut % (Auto) 83.6 H Lymph % (Auto) 8.5 L [place] % (Auto) 7.0 Eos % (Auto) 0.1 Baso % (Auto) 0.5 Lymph # (Auto) 1.2 [place] # (Auto) 1.0 Eos # (Auto) 0.0 Baso # (Auto) 0.1 Abs Immat Gran (auto) 0.04 H Absolute Neuts (auto) 11.7 H Absolute Nucleated RBC 0.000 Nucleated RBC % (auto) 0.0 Sodium Potassium Chloride Carbon Dioxide Anion Gap BUN Creatinine Estim Creat Clear Calc Estimated GFR Random Glucose Fasting Glucose Calcium Magnesium Total Bilirubin Direct Bilirubin AST ALT Alkaline Phosphatase Total Protein Albumin Triglycerides Cholesterol LDL Cholesterol, Calc HDL Cholesterol Lipase Urine Color Yellow Urine Appearance Clear Urine pH 7.0 Ur Specific [place] 1.010 Urine Protein Negative Urine Glucose (UA) Negative Urine Ketones Negative Urine Blood Negative Urine Nitrite Negative Ur Leukocyte Esterase Negative Urine Test NEGATIVE Salicylates Urine Opiates Screen Urine Fentanyl Screen Acetaminophen Ur Barbiturates Screen Valproic Acid Ur Phencyclidine Scrn Ur Amphetamines Screen U Benzodiazepines Scrn Urine Cocaine Screen U Marijuana (THC) Screen Ethyl Alcohol COVID-19 (SALLY) COVID-19 Clin Com 01/14/23 01/15/23 14:51 06:52 WBC RBC Hgb Hct MCV MCH MCHC RDW Plt Count MPV Immature Gran % (Auto) Neut % (Auto) Lymph % (Auto) [place] % (Auto) Eos % (Auto) Baso % (Auto) Lymph # (Auto) [place] # (Auto) Eos # (Auto) Baso # (Auto) Abs Immat Gran (auto) Absolute Neuts (auto) Absolute Nucleated RBC Nucleated RBC % (auto) Sodium 141 Potassium 4.2 Chloride 108 Carbon Dioxide 24 Anion Gap 13 BUN 7 L Creatinine 0.73 Estim Creat Clear Calc 83.4 Estimated GFR > 60 Random Glucose Fasting Glucose 77 Calcium 9.2 D Magnesium Total Bilirubin 0.8 Direct Bilirubin AST 13 ALT 6 Alkaline Phosphatase 55 Total Protein 6.1 L Albumin 4.2 Triglycerides 109 Cholesterol 184 LDL Cholesterol, Calc 98 HDL Cholesterol 65 Lipase Urine Color Urine Appearance Urine pH Ur Specific [place] Urine Protein Urine Glucose (UA) Urine Ketones Urine Blood Urine Nitrite Ur Leukocyte Esterase Urine Test Salicylates Urine Opiates Screen Urine Fentanyl Screen Acetaminophen Ur Barbiturates Screen Valproic Acid Ur Phencyclidine Scrn Ur Amphetamines Screen U Benzodiazepines Scrn Urine Cocaine Screen U Marijuana (THC) Screen Ethyl Alcohol COVID-19 (SALLY) Negative COVID-19 Clin Com See Note DS: Summary Hospital Course Hospital Course: per 01/15 admission note: pt was apparently delirious at her home and spoke to a friend on the phone who called 911 out of concern for pt's state.? police made a welfare check and observed a couple of empty beer cans as well as an empty bottle of trazodone, filled 01/08, for one month's worth.? on interview with and CHANDLER hammond, pt reports she can't shut down my thoughts and has not slept for two weeks.? she states she has not been wanting to go out, feeling more depressed.? after her most recent stay at [facility] in 10/08 she was able to sleep for a time, and ultimately became unable to.? on review of meds, it appears that the lyrica that had been started at last admission had not been continued.? pt repeatedly requests ambien, which MD declines to prescribe.? pt agrees to restart lyrica, asks for some other sedating medication.? agrees to switch out olanzapine for thorazine (later in the day decides against this).? pt signed 3-day notice today. Past Psychiatric History: -past meds: seroquel, haldol, wellbutrin, klonopin, ambien, celexa,? -pt has had 5 previous inpatient stays at [facility] no h/o SA, SIB. ? ? OP: currently reconnecting with [facility] as she no longer sees Kylie Talley due to several no show appointment. [facility] Medical History? 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 H/O colectomy H/O endoscopy H/O laparoscopy Hx of colonoscopy S/P cervical discectomy Family History: denies Social History: Raised by both parents, along with 4 siblings. has 3 older brothers and 1 younger.? Met developmental milestones as expected, graduated high school, bachelor's degree. ? 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 ? Stopped working due to a back injury and resulting severe chronic pain. -no longer lives with her now former boyfriend, bryn, as the relationship has ended since last discharge 09/12/22. son lives with her brother.? she reports she is about to receive a court order allowing only for supervised visits with her son. Substance History: h/o sed/hypnotic abuse, cocaine abuse Trauma History: none divulged 01/16: reports she slept a few hours overnight.? not engaged.? presents as if perfunctorily attending interview.? asking for increase in lyrica dosing. ? agreeable to increase prazosin and change VPA to all HS as well.? per staff, 3-day up .? poor sleep.? anxious, isolative.? lying down much of the day.? reporting no sleep but appears to have slept throguh the night.? CIWA , 4, 1, 2. 01/17: Patient lying in bed on approach.? She says she has okay and feels ready for discharge tomorrow.? She denies any SI; denies any new symptoms of withdrawal.? There cover recently increased.? Patient denies any complaints and has no further requests. 01/18: 3-day notice up. states she is sleeping a bit better. wants to discharge today. meds reviewed, reconciled, prescribed. Precis: 01/15:? DC trazodone as pt feels it does nothing for her.? start lyrica for neuropathic pain which prevents adequate sleep.? otherwise continue previous plan.? pt had originally agreed to DC olanzapine and try thorazine but later in the day changed her mind. 01/16:? increase lyrica from 50 TID to 75 TID as of tonight.? increase prazosin from 4 mg to 5 mg QHS.? consolidate all VPA at HS.? reported she slept several hours last night.? per staff appeared to have slept through the night.? 3-day up saturday. 01/17 patient minimally engaged however says she has doing well enough, no SI, no complaints and no request and feeling ready to discharge tomorrow 01/18: 3-day up, wants to leave. stable, sleeping better. discharged to home as per her request. Time Spent with Patient Time attestation: Total time managing care of this patient today ____ minutes. Time spent: Greater than 30 minutes Discharge Plan Discharge Anticipated Discharge Date/Time: 01/18/23 10:38 Patient Disposition: Home, Self-Care Discharge Diagnosis: Bipolar I Disorder Sedative/Hypnotic Use Disorder Cocaine Use Disorder Referrals: Camille Faust (Psychiatry) [Other] - 01/28/23 11:30 am (TELEHEALTH APPOINTMENT -Your first appointment will take place via telehealth. However, you can speak to your psychiatrist about in person appointments moving forward. ) Sherin Goins (Therapy) [Other] - 01/31/23 11:00 am (IN OFFICE APPOINTMENT) Janae Duong NP [Nurse Practitioner] - 01/21/23 3:00 pm (Appointment made January 21 @3p) Discharge Medications: New prazosin 5 mg Capsule 5 mg PO BEDTIME 30 Days Qty: 30 0RF Protocol: Hold for SBP< HOLD for SBP < : 90 simethicone [Gas Relief (simethicone)] 80 mg Tablet,Chewable 80 mg PO QIDWMHS 30 Days Qty: 120 0RF pregabalin [Lyrica] 75 mg Capsule 75 mg PO TID 30 Days Qty: 90 0RF divalproex [Depakote ER] 500 mg tablet extended release 24 hr 1,000 mg PO BEDTIME 30 Days Qty: 60 0RF Continued tizanidine 4 mg tablet 4 tab PO BEDTIME folic acid 1 mg tablet 1 tab PO BEDTIME vitamin B complex Tablet 1 tab PO BEDTIME ascorbic acid (vitamin C) 500 mg Tablet,Chewable 500 mg PO BEDTIME olanzapine 10 mg tablet 3 tab PO BEDTIME 30 Days Qty: 90 0RF mirtazapine 15 mg tablet 3 tab PO BEDTIME 30 Days Qty: 90 0RF Discontinued divalproex 500 mg tablet extended release 24 hr 500 mg PO BID prazosin 2 mg capsule 4 mg PO BEDTIME Discharge Orders: Discharge Order (Routine); Ordered 01/18/23 Ordered By: Omar Jean Diet: Advance to usual diet Activity on Discharge: As tolerated Stand Alone Forms: Patient Portal Discharge page, Community Support Care Plan Goals: remain safe, sober, and stable in the outpatient treatment setting Health Concerns: none acute Plan of Treatment: take medications as prescribed, attend appointments as scheduled Assessment: not at imminent risk of harm to self or others Discharge Date/Time: 01/18/23 11:39
--- NOTE | 2023-01-18 11:03 | PC.NURSE ---
Kathrine is alert, fully oriented, pleasant and cooperative with discharge process. She verbalizes understanding of discharge medications and appointments. She denies ideation, plan or intent to harm self or others. She denies current physical complaint.
== END 2023-01-18 11:39 | disposition home or self-care (01) | DRG 885 ==
LOC: HO.ED 18:21 → HO.PADLT16 22:05
PROVIDERS: Physician Assistant; Admitting Provider Psychiatry & Neurology Psychiatry; Emergency Provider Emergency Medicine; Visit Provider Psychiatry & Neurology Psychiatry
DX: F31.9 Bipolar disorder, unspecified (principal); M79.7 Fibromyalgia; Z20.822 Contact with and (suspected) exposure to COVID-19; Z88.5 Allergy status to narcotic agent; Z88.8 Allergy status to other drugs, medicaments and biological substances; Z79.899 Other long term (current) drug therapy; F13.10 Sedative, hypnotic or anxiolytic abuse, uncomplicated; F14.10 Cocaine abuse, uncomplicated
CPT/HCPCS: 36415; 80048; 80053; 80061; 80076; 80143; 80164; 80179; 80307; 81003; 81025; 83690; 83735; 85025; 87635; 93005; 99285; J3475; S9485

== ENCOUNTER 2023-03-04 15:58 | Outpatient (REF) | payer MEDICARE, OTHER, SELFPAY ==
--- NOTE | ~2023-03-04 | XR_ITS ---
EXAMINATION: XR ANKLE, RIGHT CLINICAL INFORMATION: Right ankle sprain. COMPARISON: None available. TECHNIQUE: AP, lateral, and mortise views of the right ankle. FINDINGS: Alignment is anatomic. Joint spaces are maintained. Curvilinear density along the cuboid on the AP view possibly represents an avulsion fracture. Surrounding soft tissue swelling. Achilles enthesopathy. No significant joint effusion. XR/XR ankle RT min 3V IMPRESSION: Possible avulsion fracture of the cuboid best seen on the AP view. Advise correlation with the site of pain on physical examination.
== END 2023-03-04 15:59 | disposition home or self-care (01) ==
LOC: HO.HMGCX 15:58
PROVIDERS: PCP Hospitalist; Visit Provider Internal Medicine
DX: S93.401D Sprain of unspecified ligament of right ankle, subsequent encounter (principal)
CPT/HCPCS: 73610

== ENCOUNTER 2023-04-08 12:21 | Outpatient (AMB) | payer MEDICARE, OTHER, SELFPAY ==
--- NOTE | 2023-04-08 12:22 | A.OFFPC_ITS ---
Vital Signs 04/08/23 12:24 Height 5 ft 6 in Weight 164 lb BMI 26.5 BP 130/78 Blood Pressure Location Lt brachial Position Sitting Pulse 98 Pulse Source Pulse Oximeter Pulse Oximetry (%) 98 Intake Visit Reasons: 1 month bipolar, anxiety, depression Intake Note: pt is here for f/u bipolar, anxiety,depression Vibration Analyst Required: No Accompanied by: Self / Same As Patient Allergies duloxetine [From CYMBALTA] Allergy (Unknown, Verified 04/08/23 12:53) Hallucinations morphine [MORPHINE] Allergy (Unknown, Verified 04/08/23 12:53) HALLUCINATIONS Phenylpiperazine Antidepressant Adverse Reaction (Severe, Verified 04/08/23 12:53) hallucinations Tetracyclic Antidepressants Adverse Reaction (Severe, Verified 04/08/23 12:53) hallucinations fentanyl [FENTANYL] Adverse Reaction (Unknown, Verified 04/08/23 12:53) Hallucinations Medication List - Last Reconciled 04/08/23 by Ann Monsivais CNP ascorbic acid (vitamin C) 500 mg PO BEDTIME divalproex ER (Depakote ER) 1,000 mg (2 x 500 mg) PO BEDTIME 30 days folic acid 1 tab PO BEDTIME meloxicam 15 mg PO DAILY olanzapine 20 mg PO BEDTIME prazosin 5 mg See Protocol PO BEDTIME 30 days simethicone (Gas Relief (simethicone)) 80 mg PO QIDWMHS 30 days tizanidine 16 mg (4 x 4 mg) PO BEDTIME 30 days vitamin B complex 1 tab PO BEDTIME zolpidem 10 mg PO BEDTIME PRN Tobacco use date assessed: 02/12/23 Dental Screening Dental Screen Date: 04/08/23 Did you have a dental visit in the last 12 months?: Yes Did you have a dental problem in the last 6 months where you did not have access to dental care?: No Was dental information given to patient?: Patient has dentist HPI HPI Comments History of Present Illness Details 52-year-old female presents for anxiety, depression, and bipolar follow-up. She notes that her symptoms are well controlled with currently treatment regimen. She reports improved sleep. She see her therapist weekly and psychiatrist monthly. She was admitted at [facility] for mental health illness between 01/15/2023 to 01/18/2023. 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 She requests documentation completed so she can be regain her vending route driver's license. She notes that she drinks alcohol socially, 2-3 beers twice a month, for the past 1 year. She reports mild pain to her right ankle after she rolled and twisted the right foot. She was evaluated and treated at the [facility] on 03/04/2023. Review of X-ray revealed possible avulsion fracture of the cuboid. [facility] Medical History Anal fissure Anemia Anxiety Cervical radiculitis Cervical spinal cord compression Gonsalves hemangioma Chronic diarrhea Chronic narcotic use Chronic night sweats Chronic pain Contact dermatitis Cough Depression Dysconjugate gaze Dysuria Failed back surgical syndrome Fibromyalgia Gastric stress ulcer Gluteal pain Irritable bowel syndrome Left rib fracture Leg weakness Leukocytosis Low back pain Low ferritin Lumbar radiculitis Lumbar radiculopathy, chronic Medication side effects Mental status change resolved Muscle spasm Neck pain Panic attacks Paralysis Paresthesia of right upper limb 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 Pharyngitis Phlebitis Plantar wart Presbycusis Pyogenic granuloma Rash Right cervical radiculopathy Right elbow pain Sleep disturbance Social anxiety disorder Tachycardia Tubular adenoma Underweight Use of opiates for therapeutic purposes Vaginal discharge Vaginitis Viral gastroenteritis Vitamin D deficiency Yeast vaginitis Surgical History H/O colectomy H/O endoscopy H/O laparoscopy H/O lumbar discectomy Hx of colonoscopy S/P cervical discectomy Family History Father AAA (abdominal aortic aneurysm) Mother TMJ (temporomandibular joint disorder) Social History Household Members: Friend(s) Household Members Other:: Boyfriend Housing: Condominium Do you presently have visiting nurse or other home services: No Alcohol intake: unknown Patient Tobacco Use Status: Never used Tobacco e-Cigarette/Vaping Use: Never Used Second Hand Smoke Exposure: No Substance Use Type: Marijuana Advance Directives Date on File: 09/13/22 service: No Current occupational status: disabled Current occupational exposures/hazards: No Sexual orientation: Straight/Heterosexual Cognitive needs: No Hearing needs: No Vision needs: No Questionnaire PHQ-9 Over the last 2 weeks, how often have you been bothered by any of the following problems? 1. Little interest or pleasure in doing things: several days 2. Feeling down, depressed, or hopeless: not at all 3. Trouble falling or staying asleep, or sleeping too much: not at all 4. Feeling tired or having little energy: more than half the days 5. Poor appetite or overeating: not at all 6. Feeling bad about yourself - or that you are a failure or have let yourself or your family down: not at all 7. Trouble concentrating on things, such as reading the newspaper or watching television: not at all 8. Moving or speaking so slowly that other people could have noticed. Or the opposite - being so fidgety or restless that you have been moving around a lot more than usual: not at all 9. Thoughts that you would be better off or of hurting yourself in some way: not at all Total score: 3 Depression Screening Interpretation: Negative 57798 - PHQ-9 Billing: Yes Source: Developed by Drs. Darrian Chavez, Charlee Mckeon, Popeye Swann and colleagues, with an educational jhon from [employer] Thrive Questionnaire Date Thrive assessed: 02/12/23 DAYANNA-7 AMB Questionnaire DAYANNA-7 Date DAYANNA - 7 assessed: 04/08/23 Feeling nervous, anxious, or on edge: 1 = Several days Not being able to stop or control worryin = Not at all Worrying too much about different things: 0 = Not at all Trouble relaxin = Not at all Being so restless that it is hard to sit still: 0 = Not at all Becoming easily annoyed or irritable: 0 = Not at all Feeling afraid as if something awful might happen: 0 = Not at all Total DAYANNA-7 score (0-4 normal; 5-9 mild; 10-14 moderate; 15-21 severe): 1 Source: Developed by Drs. Darrian Chavez, Charlee Mckeon, Popeye Swann and colleagues, with an educational jhon from [employer] DAYANNA-7 Assessment Billing DAYANNA-7 Assessment Tool: DAYANNA-7 Assessment 56251 Review of Systems Const Details: Const Denies chills, Denies fatigue, Denies fever(s), Denies headache(s) and Denies weakness ENT Denies dizziness and Denies headache(s) Card Denies chest pain, Denies lightheadedness, Denies dyspnea and Denies other (Palpitations) Resp Denies cough, Denies dyspnea, Denies wheezing and Denies other ( shortness of breath) GI Denies abdominal pain, Denies melena, Denies hematochezia, Denies change in bowel habits, Denies dyspepsia and Denies nausea Denies hematuria and Denies dysuria Musc Reports right foot pain, Denies abnormal gait, Denies numbness and Denies tingling Skin/Breast Denies rash, Denies unusual bruising and Denies wounds Neuro Denies abnormal gait, Denies dizziness, Denies headache(s), Denies memory loss, Denies numbness, Denies Sensory deficit (Neuro), Denies tingling and Denies weakness Psych Denies anxiety and Denies depression, Denies memory loss Endo Denies fatigue Aller/Immun Denies wheezing Physical exam (Primary Care) Vital Signs: Last Vital Signs Pulse 98 04/08/23 12:24 BP 130/78 04/08/23 12:24 Pulse Ox 98 04/08/23 12:24 BMI result Body Mass Index 26.5 Tobacco/Smoking Status: Tobacco use Status Tobacco use date assessed 02/12/23 04/08/23 12:24 Patient Tobacco Use Status Never used Tobacco 04/08/23 12:24 e-Cigarette/Vaping Use Never Used 04/08/23 12:24 Depression Screening Interpretation: Negative Thrive Assessment: Date of Thrive Assessment Date Thrive assessed 02/12/23 04/08/23 12:24 Const Other: General: no acute distress and well developed Nutritional Appearance: well nourished Orientation/consciousness: patient oriented x3 HENMT Head: Yes normocephalic and Yes atraumatic Eyes General: appearance normal, both eyes and all related structures Pupils: Equal, round and reactive pupils present EOM: EOMs intact bilaterally Resp Effort & Inspection: normal respiratory effort Auscultation: clear to auscultation bilaterally Cardio Rate: regular rate Rhythm: regular rhythm Heart sounds: S1 normal heart sound present, S2 normal heart sound present, no gallops, no murmurs and no rubs GI Palpation (GI): No Abdominal aortic bruit present, Soft to palpation, nontender, No hepatosplenomegaly present and No Rebound tenderness present Auscultation: normal bowel sounds General: Yes no CVA tenderness Back/Spine/Pelvis Back: no CVA tenderness Cervical Spine: cervical ROM normal and No Cervical spine tenderness Thoracic/Lumbar Spine: thoraco-lumbar ROM normal, No pain with thoraco-lumbar ROM, No thoracic spinal tenderness and No lumbar spinal tenderness Extrem General: Yes normal to inspection, No calf tenderness Moderate edema of the right ankle, normal DP/PT pulses Skin General: warm and dry. Normal skin color. Normal skin turgor Lesions: no lesions Rashes: no rashes Trauma: no lacerations or abrasions Wounds: no wounds Nails: normal Neuro General: patient oriented x3, slightly unsteady gait and no focal neuro deficit Cranial nerves: Yes Equal, round and reactive pupils present Cognition (Neuro): normal cognition Gait exam (Neuro): Normal gait present Sensory Exam: No Sensory deficit (Neuro) Psych Appearance: grossly normal Affect: normal affect Attitude: cooperative Thought process: Normal thought process present Assessment and Plan Assessment & Plan (1) Depression: Code(s): F32.A - Depression, unspecified Plan: PHQ-9 and DAYANNA-7 scores are normal Continue with current treatment regimen Continue follow-up with psychiatrist and therapist as planned Routine exercise encouraged Follow-up with PCP in 3 months or return sooner with worsening or new symptoms Verbalized understanding and agreed with treatment plan. (2) DAYANNA (generalized anxiety disorder): Code(s): F41.1 - Generalized anxiety disorder Plan: As above (3) Bipolar disorder: Code(s): F31.9 - Bipolar disorder, unspecified Plan: As above (4) Right ankle pain: Code(s): M25.571 - Pain in right ankle and joints of right foot Plan: She reports mild pain to her right ankle after she rolled and twisted the right foot. She was evaluated and treated at the [facility] on 03/04/2023. Review X-ray revealed possible avulsion fracture of the cuboid Moderate edema of the right ankle, normal DP/PT pulses Gait is slightly unsteady favoring the right lower extremity Declined physical therapy Advised to continue current treatment regimen Follow-up with new or worsening symptoms Verbalized understanding and agreed with treatment plan. Medications: Changed From olanzapine 30 mg (3 x 10 mg) PO BEDTIME 30 days 90 tabs 3RF To olanzapine 20 mg PO BEDTIME Discontinued olanzapine 3 tabs PO BEDTIME 30 days 90 tabs 0RF mirtazapine 3 tabs PO BEDTIME 30 days 90 tabs 0RF Coding Level of Care Code Est Pt Level 3 (89556) Diagnoses Depression F32.A DAYANNA (generalized anxiety disorder) F41.1 Bipolar disorder F31.9 Right ankle pain M25.571 Additional Codes DAYANNA-7 Assessment Billing - DAYANNA-7 Assessment Tool: DAYANNA-7 Assessment 76167 ([id number])
[2023-04-08 12:24] VITALS: BP 130/78; PULSE 98; O2SAT 98; BMI 26.5
== END 2023-04-08 13:12 | disposition home or self-care (01) ==
PROVIDERS: PCP Hospitalist; Visit Provider Nurse Practitioner Family
DX: F31.9 Bipolar disorder, unspecified (principal); F41.1 Generalized anxiety disorder; M25.571 Pain in right ankle and joints of right foot
CPT/HCPCS: 99213

== ENCOUNTER 2023-06-21 13:38 | Outpatient (AMB) | payer MEDICARE, OTHER, SELFPAY ==
[2023-06-21 13:43] VITALS: BP 127/64; PULSE 74; RESP 13; TEMP 36.4; O2SAT 98; BMI 27.2
--- NOTE | 2023-06-21 13:43 | MHC.PC.OV ---
Vital Signs 06/21/23 13:43 Height 5 ft 6 in Weight 168 lb 8 oz BMI 27.2 BP 127/64 Blood Pressure Location Lt brachial Position Sitting Respiration 13 Pulse 74 Pulse Source Pulse Oximeter Temp 97.6 F Temp Source Temporal Artery Scan Pulse Oximetry (%) 98 Oxygen Delivery Method Room Air Intake Visit Reasons: Nausea/ Dizziness Intake Note: Patient states shes been experiencing these symptoms for 3 days. Manager Gaming Required: No Accompanied by: Self / Same As Patient Allergies duloxetine [From CYMBALTA] Allergy (Unknown, Verified 06/21/23 14:01) Hallucinations morphine [MORPHINE] Allergy (Unknown, Verified 06/21/23 14:01) HALLUCINATIONS Phenylpiperazine Antidepressant Adverse Reaction (Severe, Verified 06/21/23 14:01) hallucinations Tetracyclic Antidepressants Adverse Reaction (Severe, Verified 06/21/23 14:01) hallucinations fentanyl [FENTANYL] Adverse Reaction (Unknown, Verified 06/21/23 14:01) Hallucinations Medication List - Last Reconciled 06/21/23 by Ann Monsivais CNP ascorbic acid (vitamin C) 500 mg PO BEDTIME divalproex ER (Depakote ER) 1,000 mg (2 x 500 mg) PO BEDTIME 30 days folic acid 1 tab PO BEDTIME meloxicam 15 mg PO DAILY mirtazapine 45 mg PO DAILY olanzapine 30 mg PO BEDTIME prazosin 5 mg See Protocol PO BEDTIME 30 days simethicone (Gas Relief (simethicone)) 80 mg PO QIDWMHS 30 days tizanidine 16 mg (4 x 4 mg) PO BEDTIME 30 days vitamin B complex 1 tab PO BEDTIME zolpidem 10 mg PO BEDTIME PRN Tobacco use date assessed: 02/12/23 Dental Screening Dental Screen Date: 06/21/23 Did you have a dental visit in the last 12 months?: No Did you have a dental problem in the last 6 months where you did not have access to dental care?: No Was dental information given to patient?: Patient has dentist HPI HPI Comments History of Present Illness Details 52-year-old female presents with complaints of dizziness and nausea. She notes that her symptoms have been constant and ongoing for the past 3 days. She reports initial vomiting, three time, the first 2 days. She notes that she is dizzy only with position changes. She denies blood in her vomit. She admits poor hydration before the onset of her symptoms. She denies fever, chills, body aches, fatigue, or weakness. She states that there is no changes she is . She states that she is not sexually active. 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 Paralysis Neck pain Mental status change resolved Medication side effects Lumbar radiculitis Low ferritin Low back pain Leukocytosis Gluteal pain Gastric stress ulcer Dysconjugate gaze Cough Gonsalves hemangioma Cervical spinal cord compression Cervical radiculitis Anal fissure Vitamin D deficiency Vaginal discharge Underweight Tubular adenoma Sleep disturbance Right cervical radiculopathy Rash Presbycusis Plantar wart Pharyngitis Paresthesia of right upper limb Panic attacks Muscle spasm Leg weakness Left rib fracture Irritable bowel syndrome Fibromyalgia Dysuria Depression Contact dermatitis Chronic pain Chronic night sweats Chronic narcotic use Chronic diarrhea Anxiety Anemia Surgical History H/O lumbar discectomy Hx of colonoscopy H/O colectomy H/O laparoscopy H/O endoscopy S/P cervical discectomy Family History Father AAA (abdominal aortic aneurysm) Mother TMJ (temporomandibular joint disorder) Social History Household Members: Friend(s) Household Members Other:: Boyfriend Housing: Condominium Do you presently have visiting nurse or other home services: No Alcohol intake: unknown Patient Tobacco Use Status: Never used Tobacco e-Cigarette/Vaping Use: Never Used Second Hand Smoke Exposure: No Substance Use Type: Marijuana Advance Directives Date on File: 09/13/22 service: No Current occupational status: disabled Current occupational exposures/hazards: No Sexual orientation: Straight/Heterosexual Cognitive needs: No Hearing needs: No Vision needs: Yes Questionnaire Thrive Questionnaire Date Thrive assessed: 02/12/23 DAYANNA-7 AMB Questionnaire DAYANNA-7 Date DAYANNA - 7 assessed: 04/08/23 Source: Developed by Drs. Darrian Chavez, Charlee Mckeon, Popeye Swann and colleagues, with an educational jhon from [employer]. Review of Systems Const Details: Const Denies chills, Denies fatigue, Denies fever(s), Denies headache(s) and Denies weakness ENT Reports as per HPI Card Denies chest pain, Denies lightheadedness, Denies dyspnea and Denies other (Palpitations) Resp Denies cough, Denies dyspnea, Denies wheezing and Denies other ( shortness of breath) GI Reports nausea, Denies abdominal pain, Denies melena, Denies hematochezia, Denies change in bowel habits, Denies dyspepsia Denies hematuria and Denies dysuria Musc Denies abnormal gait, Denies myalgias, Denies arthralgias, Denies numbness and Denies tingling Skin/Breast Denies rash, Denies unusual bruising and Denies wounds Neuro Denies abnormal gait, Reports dizziness, Denies headache(s), Denies memory loss, Denies numbness, Denies Sensory deficit (Neuro), Denies tingling and Denies weakness Psych Denies anxiety, Denies depression, Denies memory loss Endo Denies cold intolerance, Denies fatigue, Denies heat intolerance, Denies polydipsia and Denies polyuria Aller/Immun Denies wheezing Physical exam (Primary Care) Vital Signs: Last Vital Signs Temp 97.6 F 06/21/23 13:43 Pulse 74 06/21/23 13:43 Resp 13 06/21/23 13:43 BP 127/64 06/21/23 13:43 Pulse Ox 98 06/21/23 13:43 Oxygen Delivery Method Room Air 06/21/23 13:43 BMI result Body Mass Index 27.2 Tobacco/Smoking Status: Tobacco use Status Tobacco use date assessed 02/12/23 06/21/23 13:52 Patient Tobacco Use Status Never used Tobacco 06/21/23 13:52 e-Cigarette/Vaping Use Never Used 06/21/23 13:52 Thrive Assessment: Date of Thrive Assessment Date Thrive assessed 02/12/23 06/21/23 13:52 Const Other: General: no acute distress and well developed Nutritional Appearance: well nourished Orientation/consciousness: patient oriented x3 HENMT Head: Yes normocephalic and Yes atraumatic Lips and mucous membrane are pink and dry Eyes General: appearance normal, both eyes and all related structures Pupils: Equal, round and reactive pupils present EOM: EOMs intact bilaterally Resp Effort & Inspection: normal respiratory effort Auscultation: clear to auscultation bilaterally Cardio Rate: regular rate Rhythm: regular rhythm Heart sounds: S1 normal heart sound present, S2 normal heart sound present, no gallops, no murmurs and no rubs GI Palpation (GI): No Abdominal aortic bruit present, Soft to palpation, nontender, No hepatosplenomegaly present and No Rebound tenderness present Auscultation: normal bowel sounds General: Yes no CVA tenderness Back/Spine/Pelvis Back: no CVA tenderness Cervical Spine: cervical ROM normal and No Cervical spine tenderness Thoracic/Lumbar Spine: thoraco-lumbar ROM normal, No pain with thoraco-lumbar ROM, No thoracic spinal tenderness and No lumbar spinal tenderness Extrem General: Yes normal to inspection, No edema and No calf tenderness Skin General: warm and dry. Normal skin color. Normal skin turgor Lesions: no lesions Rashes: no rashes Trauma: no lacerations or abrasions Wounds: no wounds Nails: normal Neuro General: patient oriented x3, gait normal and no focal neuro deficit Cranial nerves: Yes Equal, round and reactive pupils present Cognition (Neuro): normal cognition Gait exam (Neuro): Normal gait present Sensory Exam: No Sensory deficit (Neuro) Psych Appearance: grossly normal Affect: normal affect Attitude: cooperative Thought process: Normal thought process present Assessment and Plan Assessment & Plan (1) Nausea & vomiting: Code(s): R11.2 - Nausea with vomiting, unspecified Plan: She reports persistent nausea and dizziness with position changes for the past 3 days. She vomited 3 times the first 2 days. She admits to poor hydration Lips and mucous membrane are pink and dry Her symptoms may be attributed to dehydration Zofran ordered. Take as prescribed Adequate hydration encouraged Will check CBC and BMP Follow-up with worsening or new symptoms Verbalized understanding and agreed with treatment plan. (2) Dizziness: Code(s): R42 - Dizziness and giddiness Plan: As above Orders: Orders Complete Blood Count no Diff Today R11.2 - Nausea with vomiting, unspecified, R42 - Dizziness and giddiness Basic Metabolic Panel Today R11.2 - Nausea with vomiting, unspecified, R42 - Dizziness and giddiness Medications: New ondansetron 4 mg PO Q8H PRN 9 tabs 0RF nausea and vomiting Coding Level of Care Code Est Pt Level 2 (33254) Diagnoses Nausea & vomiting R11.2 Dizziness R42
== END 2023-06-21 14:22 | disposition home or self-care (01) ==
PROVIDERS: PCP Hospitalist; Visit Provider Nurse Practitioner Family
DX: R11.2 Nausea with vomiting, unspecified (principal); R42 Dizziness and giddiness
CPT/HCPCS: 99214

== ENCOUNTER 2023-08-05 14:47 | Outpatient (AMB) | payer MEDICARE, OTHER, SELFPAY ==
--- NOTE | 2023-08-05 14:50 | A.OFFPC_ITS ---
Vital Signs 08/05/23 14:51 Height 5 ft 6 in Weight 175 lb BMI 28.2 BP 102/60 Blood Pressure Location Lt brachial Position Sitting Respiration 15 Pulse 113 H Pulse Source Pulse Oximeter Pulse Oximetry (%) 98 Oxygen Delivery Method Room Air Intake Visit Reasons: Transfer of care, anxiety/depression Intake Note: Patient is here to follow up for anxiety and depression. Patient reports she has paperwork from a loss of conscienceness for the [facility] and she states she does not want to leave the papers to be filled out because last time they did not fill them out. Patient reports she is weaning from olanzaprine and will be adding Abilify when the PA comes back. This change is made from her psychiatrist. Overlock Collar Setter Required: No Accompanied by: Self / Same As Patient Allergies duloxetine [From CYMBALTA] Allergy (Unknown, Verified 08/05/23 15:15) Hallucinations morphine [MORPHINE] Allergy (Unknown, Verified 08/05/23 15:15) HALLUCINATIONS Phenylpiperazine Antidepressant Adverse Reaction (Severe, Verified 08/05/23 15:15) hallucinations Tetracyclic Antidepressants Adverse Reaction (Severe, Verified 08/05/23 15:15) hallucinations fentanyl [FENTANYL] Adverse Reaction (Unknown, Verified 08/05/23 15:15) Hallucinations Medication List - Last Reconciled 08/05/23 by Ann Monsivais CNP ascorbic acid (vitamin C) 500 mg PO BEDTIME divalproex ER (Depakote ER) 1,000 mg (2 x 500 mg) PO BEDTIME 30 days folic acid 1 tab PO BEDTIME meloxicam 15 mg PO DAILY mirtazapine 45 mg PO DAILY olanzapine 20 mg PO BEDTIME ondansetron 4 mg PO Q8H PRN prazosin 5 mg See Protocol PO BEDTIME 30 days simethicone (Gas Relief (simethicone)) 80 mg PO QIDWMHS 30 days tizanidine 16 mg (4 x 4 mg) PO BEDTIME 30 days vitamin B complex 1 tab PO BEDTIME zolpidem 10 mg PO BEDTIME PRN Tobacco use date assessed: 02/12/23 HPI HPI Comments History of Present Illness Details 53-year-old female presents for transfer of care Her former PCP is ALVARADO who is no longer with the practice Her last blood work was in January and unrevealing She has past medical history significant for anxiety, depression, bipolar, sleep disturbance, chronic lumbar radiculopathy, and fibromyalgia She is followed by a therapist weekly and psychiatrist monthly She reports chronic low back pain and bilateral lower extremity weakness. She notes that she lost the her right patella reflex after 2 surgeries to correct her lumbar spine disease; she reports right leg weakness as result of the surgeries. She reports history of physical therapy to strengthen her bilateral lower extremity. She requests a referral to physical therapy. She take tizanidine for occasional lower back and bilateral lower extremities spasms She also reports chronic low back pain She notes that her last mammogram was over a year ago: normal She states that her last colonoscopy at [facility] was not done because of significant amount of stool in her bowel. 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 Paralysis Neck pain Mental status change resolved Medication side effects Lumbar radiculitis Low ferritin Low back pain Leukocytosis Gluteal pain Gastric stress ulcer Dysconjugate gaze Cough Gonsalves hemangioma Cervical spinal cord compression Cervical radiculitis Anal fissure Vitamin D deficiency Vaginal discharge Underweight Tubular adenoma Sleep disturbance Right cervical radiculopathy Rash Presbycusis Plantar wart Pharyngitis Paresthesia of right upper limb Panic attacks Muscle spasm Leg weakness Left rib fracture Irritable bowel syndrome Fibromyalgia Dysuria Depression Contact dermatitis Chronic pain Chronic night sweats Chronic narcotic use Chronic diarrhea Anxiety Anemia Surgical History H/O lumbar discectomy Hx of colonoscopy H/O colectomy H/O laparoscopy H/O endoscopy S/P cervical discectomy Family History Father AAA (abdominal aortic aneurysm) Mother TMJ (temporomandibular joint disorder) Household Members: Friend(s) Household Members Other:: Boyfriend Housing: Condominium Do you presently have visiting nurse or other home services: No Alcohol intake: unknown Patient Tobacco Use Status: Never used Tobacco e-Cigarette/Vaping Use: Never Used Second Hand Smoke Exposure: No Substance Use Type: Marijuana Advance Directives Date on File: 09/13/22 service: No Current occupational status: disabled Current occupational exposures/hazards: No Sexual orientation: Straight/Heterosexual Cognitive needs: No Hearing needs: No Vision needs: Yes Questionnaire PHQ-9 Over the last 2 weeks, how often have you been bothered by any of the following problems? 1. Little interest or pleasure in doing things: not at all 2. Feeling down, depressed, or hopeless: not at all 3. Trouble falling or staying asleep, or sleeping too much: not at all 4. Feeling tired or having little energy: several days 5. Poor appetite or overeating: not at all 6. Feeling bad about yourself - or that you are a failure or have let yourself or your family down: not at all 7. Trouble concentrating on things, such as reading the newspaper or watching television: not at all 8. Moving or speaking so slowly that other people could have noticed. Or the opposite - being so fidgety or restless that you have been moving around a lot more than usual: not at all 9. Thoughts that you would be better off or of hurting yourself in some way: not at all Total score: 1 Depression Screening Interpretation: Negative Depression Screening Done: Yes 94891 - PHQ-9 Billing: Yes Source: Developed by Drs. Darrian Chavez, Charlee Mckeon, Popeye Swann and colleagues, with an educational jhon from [facility]. Thrive Questionnaire Date Thrive assessed: 02/12/23 DAYANNA-7 AMB Questionnaire DAYANNA-7 Date DAYANNA - 7 assessed: 08/05/23 Feeling nervous, anxious, or on edge: 0 = Not at all Not being able to stop or control worryin = Not at all Worrying too much about different things: 1 = Several days Trouble relaxin = Not at all Being so restless that it is hard to sit still: 0 = Not at all Becoming easily annoyed or irritable: 0 = Not at all Feeling afraid as if something awful might happen: 0 = Not at all Total DAYANNA-7 score (0-4 normal; 5-9 mild; 10-14 moderate; 15-21 severe): 1 Source: Developed by Drs. Darrian Chavez, Charlee Mckeon, Popeye Swann and colleagues, with an educational jhon from [facility]. DAYANNA-7 Assessment Billing DAYANNA-7 Assessment Tool: DAYANNA-7 Assessment [id number] Review of Systems Const Details: Denies chills, Denies fatigue, Denies fever(s), Denies headache(s) and Reports weakness HEENT Denies change in vision, Denies dizziness, Denies headache(s), Denies hearing loss, Denies nasal congestion, Denies sinus pain, Denies sinus pressure and Denies sore throat Card Denies chest pain, Denies lightheadedness, Denies dyspnea and Denies other (palpitations) Resp Denies cough, Denies dyspnea and Denies wheezing GI Denies abdominal pain, Denies melena, Denies hematochezia, Denies change in bowel habits, Denies dyspepsia and Denies nausea Denies hematuria and Denies dysuria Musc Reports as per HPI Skin/Breast Denies rash, Denies unusual bruising and Denies wounds Neuro Denies abnormal gait, Denies dizziness, Denies headache(s), Denies memory loss, Denies numbness, Denies Sensory deficit (Neuro), Denies tingling and Reports weakness Psych Denies anxiety, Denies depression and Denies memory loss Endo Denies cold intolerance, Denies fatigue, Denies heat intolerance, Denies polydipsia and Denies polyuria Taz/Lymph Denies easy bleeding and Denies easy bruising Aller/Immun Denies wheezing Physical exam (Primary Care) Vital Signs: Last Vital Signs Pulse 113 H 08/05/23 14:51 Resp 15 08/05/23 14:51 BP 102/60 08/05/23 14:51 Pulse Ox 98 08/05/23 14:51 Oxygen Delivery Method Room Air 08/05/23 14:51 BMI result Body Mass Index 28.2 Tobacco/Smoking Status: Tobacco use Status Tobacco use date assessed 02/12/23 08/05/23 15:03 Patient Tobacco Use Status Never used Tobacco 08/05/23 15:03 e-Cigarette/Vaping Use Never Used 08/05/23 15:03 PHQ-9: PHQ-9 Score PHQ-9: Total score 1 08/06/23 08:29 Depression Screening Interpretation: Negative Thrive Assessment: Date of Thrive Assessment Date Thrive assessed 02/12/23 08/05/23 15:03 Const Other: General: no acute distress, well developed, alert and awake Nutritional Appearance: well nourished Orientation/consciousness: patient oriented x3 HENMT Head: Yes normocephalic and Yes atraumatic Ears: hearing grossly normal bilaterally and TM's normal bilaterally General nose exam: Normal external nose present and Normal nares present Mouth: Normal oral and palatal mucosa present and moist mucous membranes Teeth and gingiva: dentition normal Throat: Yes oropharynx normal Eyes Pupils: Equal, round and reactive pupils present and Pupil accommodation reflex normal EOM: EOMs intact bilaterally Neck Neck: Yes normal visual inspection, Yes no lymphadenopathy and Yes trachea midline Thyroid: Thyroid normal Carotids: no bruits Lymphatic: no lymphadenopathy noted Chest Chest palpation & inspection: normal inspection of the chest Resp Effort & Inspection: normal respiratory effort Auscultation: clear to auscultation bilaterally Cardio Rate: regular rate Rhythm: regular rhythm Heart sounds: S1 normal heart sound present, S2 normal heart sound present, no gallops, no murmurs and no rubs Bruits: no abdominal aortic bruits and no carotid bruits GI Palpation (GI): No Abdominal aortic bruit present, Soft to palpation, nontender, No hepatosplenomegaly present and No Rebound tenderness present Auscultation: normal bowel sounds General: Yes no CVA tenderness Back/Spine/Pelvis Back: no CVA tenderness Cervical Spine: cervical ROM normal and No Cervical spine tenderness Thoracic/Lumbar Spine: thoraco-lumbar ROM normal, No pain with thoraco-lumbar ROM, No thoracic spinal tenderness and No lumbar spinal tenderness Skin General: warm and dry. Normal skin color. Normal skin turgor Lesions: no lesions Rashes: no rashes Trauma: no lacerations or abrasions Wounds: no wounds Nails: normal Neuro General: patient oriented x3, gait normal and CN's II-XI intact bilaterally Cranial nerves: Yes Equal, round and reactive pupils present Cognition (Neuro): normal cognition Gait exam (Neuro): Slightly unsteady Motor exam (neuro): 4/5 motor strength bilateral upper and left lower extremity; 2/5 motor strength to right lower extremity Sensory Exam: No Sensory deficit (Neuro) Deep tendon reflexes (DTR's): Right patellar reflex intensity grade: 0 and Left patellar reflex intensity grade: 2+ Extrem General: Yes normal to inspection, No edema and No calf tenderness Psych Appearance: grossly normal Affect: normal affect Attitude: cooperative Thought process: Normal thought process present Assessment and Plan Assessment & Plan (1) Abnormal physical finding: Code(s): R68.89 - Other general symptoms and signs Plan: Abnormal physical exam due to chronic low back pain and bilateral lower extremity weakness 4/5 motor strength bilateral upper and left lower extremity; 2/5 motor strength to right lower extremity Right patellar reflex intensity grade: 0 and Left patellar reflex intensity grade: 2+ Gait is slightly unsteady Continue current treatment regimen May take Tylenol ibuprofen for pain or discomfort Referred to physical therapy as requested Advised to schedule her next physical exam for a year from today Return sooner with symptoms or concerns Verbalized understanding and agreed with treatment plan. (2) Lumbar radiculopathy, chronic: Code(s): M54.16 - Radiculopathy, lumbar region Plan: Reports chronic low back pain and intermittent spasms Lumbar spine tenderness to palpation Tizanidine as prescribed May take ibuprofen or Tylenol as needed for pain or discomfort Warm/cold compresses encouraged Referred to physical therapy Follow-up with worsening or new symptoms Verbalized understanding and agreed with treatment plan. (3) Muscle spasm: Code(s): M62.838 - Other muscle spasm Plan: Reports intermittent lower back and bilateral lower extremity spasms which respond well to tizanidine Tizanidine as prescribed Warm/cool compresses encouraged Referred to physical therapy Return with worsening or new symptoms Verbalized understanding and agreed with treatment plan. (4) Weakness of both lower extremities: Code(s): R29.898 - Other symptoms and signs involving the musculoskeletal system Plan: Reports history of bilateral lower extremity weakness and loss of right patellar reflex related to a surgical procedures to repair her lower spine a year ago N o tingling, numbness, loss of sensation 4/5 motor strength bilateral upper and left lower extremity; 2/5 motor strength to right lower extremity Gait is slightly unsteady Referred to physical therapy to assist with lower extremity strengthening Follow-up with worsening or new symptoms Verbalized understanding and agreed with treatment plan. (5) DAYANNA (generalized anxiety disorder): Code(s): F41.1 - Generalized anxiety disorder Plan: PHQ-9 and DAYANNA-7 scores are normal Continue with current treatment regimen Follow-up with therapist and psychiatrist as planned Routine exercise encouraged Verbalized understanding and agreed with treatment plan (6) Depression: Code(s): F32.A - Depression, unspecified Plan: As above (7) Bipolar disorder: Code(s): F31.9 - Bipolar disorder, unspecified Plan: As above (8) Vaccine counseling: Code(s): Z71.85 - Encounter for immunization safety counseling Plan: She states she has not been vaccinated for shingles and does not want to be vaccinated Instructed on importance of vaccinations and encouraged to get vaccinated for shingles Medications: Refilled tizanidine 16 mg (4 x 4 mg) PO BEDTIME 30 days 120 tabs 1RF Coding Level of Care Code Est Pt Prev Care 40-64y(25376) Diagnoses Abnormal physical finding R68.89 Lumbar radiculopathy, chronic M54.16 Muscle spasm M62.838 Weakness of both lower extremities R29.898 DAYANNA (generalized anxiety disorder) F41.1 Depression F32.A Bipolar disorder F31.9 Vaccine counseling Z71.85 Additional Codes DAYANNA-7 Assessment Billing - DAYANNA-7 Assessment Tool: DAYANNA-7 Assessment [id number] ([id number])
[2023-08-05 14:51] VITALS: BP 102/60; PULSE 113; RESP 15; O2SAT 98; BMI 28.2
== END 2023-08-05 15:49 | disposition home or self-care (01) ==
PROVIDERS: PCP Hospitalist; Visit Provider Nurse Practitioner Family
DX: R68.89 Other general symptoms and signs (principal); F31.9 Bipolar disorder, unspecified; M54.16 Radiculopathy, lumbar region; M62.838 Other muscle spasm; R29.898 Other symptoms and signs involving the musculoskeletal system; F41.1 Generalized anxiety disorder; F32.A Depression, unspecified; Z71.85 Encounter for immunization safety counseling
CPT/HCPCS: 99214

== ENCOUNTER 2023-10-11 12:33 | Outpatient (AMB) | payer MEDICARE, OTHER, MEDICAID, SELFPAY ==
[2023-10-11 12:35] VITALS: BP 112/72; PULSE 112; O2SAT 96; BMI 28.7
--- NOTE | 2023-10-11 12:35 | AM.OFFWIN_ITS ---
Intake Vital Signs 10/11/23 12:35 Height 5 ft 6 in Weight 178 lb BMI 28.7 BP 112/72 Blood Pressure Location Lt brachial Position Sitting Pulse 112 H Pulse Source Pulse Oximeter Pulse Oximetry (%) 96 Oxygen Delivery Method Room Air Intake Visit Reasons: EP RT Foot injury Intake Note: pt is here for rt foot injury started 2 weeks Patient Tobacco Use Status: Never used Tobacco Allergies duloxetine [From CYMBALTA] Allergy (Unknown, Verified 10/11/23 12:37) Hallucinations morphine [MORPHINE] Allergy (Unknown, Verified 10/11/23 12:37) HALLUCINATIONS Phenylpiperazine Antidepressant Adverse Reaction (Severe, Verified 10/11/23 12:37) hallucinations Tetracyclic Antidepressants Adverse Reaction (Severe, Verified 10/11/23 12:37) hallucinations fentanyl [FENTANYL] Adverse Reaction (Unknown, Verified 10/11/23 12:37) Hallucinations Do you need a note to return to daycare/school/sports/work: No HPI HPI Comments History of Present Illness Details This is a 53-year-old female who presented to the walk-in clinic complaining of right foot pain x 2 weeks. Patient denies any specific trauma or injury prior to her symptom onset. She states the foot pain is located at the dorsal/lateral of her foot and the pain is exacerbated with walking. She denies any numbness/weakness/paresthesias of her foot. She denies any swelling, erythema, or ecchymosis of her foot or calf or rosenberg. 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 Paralysis Neck pain Mental status change resolved Medication side effects Lumbar radiculitis Low ferritin Low back pain Leukocytosis Gluteal pain Gastric stress ulcer Dysconjugate gaze Cough Gonsalves hemangioma Cervical spinal cord compression Cervical radiculitis Anal fissure Vitamin D deficiency Vaginal discharge Underweight Tubular adenoma Sleep disturbance Right cervical radiculopathy Rash Presbycusis Plantar wart Pharyngitis Paresthesia of right upper limb Panic attacks Muscle spasm Leg weakness Left rib fracture Irritable bowel syndrome Fibromyalgia Dysuria Depression Contact dermatitis Chronic pain Chronic night sweats Chronic narcotic use Chronic diarrhea Anxiety Anemia Surgical History H/O lumbar discectomy Hx of colonoscopy H/O colectomy H/O laparoscopy H/O endoscopy S/P cervical discectomy Family History Father AAA (abdominal aortic aneurysm) Mother TMJ (temporomandibular joint disorder) Social History Household Members: Friend(s) Household Members Other:: Boyfriend Housing: Condominium Do you presently have visiting nurse or other home services: No Alcohol intake: unknown Patient Tobacco Use Status: Never used Tobacco e-Cigarette/Vaping Use: Never Used Second Hand Smoke Exposure: No Substance Use Type: Marijuana Advance Directives Date on File: 09/13/22 service: No Current occupational status: disabled Current occupational exposures/hazards: No Sexual orientation: Straight/Heterosexual Cognitive needs: No Hearing needs: No Vision needs: Yes Review of Systems Const All systems reviewed & are unremarkable except as noted in HPI and below Reports no additional complaints Eyes Reports no additional complaints ENT Reports no additional complaints Card Reports no additional complaints Resp Reports no additional complaints GI Reports no additional complaints Reports no additional complaints Musc Reports no additional complaints Skin/Breast Reports system reviewed and no additional complaints, except as documented Neuro Reports no additional complaints Psych Reports no additional complaints Endo Reports no additional complaints Taz/Lymph Reports no additional complaints Aller/Immun Reports no additional complaints Physical Exam Vital Signs: Last Vital Signs Pulse 112 H 10/11/23 12:35 BP 112/72 10/11/23 12:35 Pulse Ox 96 10/11/23 12:35 Oxygen Delivery Method Room Air 10/11/23 12:35 BMI result Body Mass Index 28.7 Const Other: Vital signs reviewed. Constitutional: Non-toxic appearing. No acute distress. Well-developed and well-nourished. HEENT: Normocephalic and atraumatic. Skin: Warm and dry. No rashes or lesions noted. Neck: Full and painless range of motion. No cervical lymphadenopathy. Cardio: Tachycardia. No lower extremity edema. No JVD. Pulmonary: No respiratory distress. No accessory muscle usage. Gastrointestinal: Soft, nontender, and nondistended in all 4 quadrants. Musculoskeletal: There is diffuse tenderness to palpation of the dorsal lateral aspect of the right foot without ecchymosis or swelling. Patient has full and pain less range of motion of her right ankle. There is no tenderness to pal pation of the medial or lateral malleolus of the right ankle. There is no tenderness to palpation of the right calf/rosenberg. Neuro: Alert and oriented x4. Cranial nerves 2-12 grossly intact. No focal deficits appreciated. Psych: Normal mood and affect. Assessment & Plan Assessment & Plan (1) Right foot pain: Code(s): M79.671 - Pain in right foot Plan: This is a 53-year-old female who presented to the office complaining of atraumatic right foot pain. On physical examination, the patient has tenderness to palpation of the dorsal lateral aspect of the right foot without swelling, ecchymosis, or erythema. Differential diagnosis includes sprain/strain versus fracture/dislocation, very low suspicion for Lisfranc injury given no trauma, low suspicion for gout given no swelling or erythema, no calf swelling or tenderness to palpation to suggest DVT. Plan to check x-ray of the right foot to rule out fracture versus dislocation; upon my read, there is no obvious fracture or dislocation of the right foot. Recommended rest/activity modification, ice to the area, elevation of the extremity, and continue with acetaminophen/ibuprofen for pain management as long as patient has no medical contraindications. Patient was provided with a post-op shoe for comfort and to allow for healing. Patient advised to follow-up here for persistent or worsening symptoms. Patient verbalized understanding and is agreeable with the plan. Of note, the patient was found to be tachycardic with heart rate of 112 but this appears to be chronic for the patient. She is asymptomatic from a cardiac sta ndpoint. As mentioned above, there is no calf swelling or tenderness to palpation to suggest DVT. Orders: Orders XR foot RT 2V Today M79.671 - Pain in right foot Coding Level of Care Code Est Pt Level 3 (30824) Diagnoses Right foot pain M79.671
== END 2023-10-11 13:53 | disposition home or self-care (01) ==
PROVIDERS: PCP Nurse Practitioner Family; Visit Provider Physician Assistant Medical
DX: M79.671 Pain in right foot (principal)
CPT/HCPCS: 99213

== ENCOUNTER 2023-10-11 13:00 | Outpatient (REF) | payer MEDICARE, OTHER, SELFPAY ==
--- NOTE | ~2023-10-11 | XR_ITS ---
EXAMINATION: XR FOOT, RIGHT CLINICAL INFORMATION: Pain COMPARISON: None available. TECHNIQUE: AP, lateral, and oblique views of the right foot. FINDINGS: There is mild loss of PIP and DIP joint spaces of right foot. Also visualized is loss of first tarsometatarsal joint space. There is subtle lucency seen overlying the medial cuneiform bone question fracture or arthritic changes. The ankle mortise and subtalar joints are normal. There is mild proximal dorsal foot soft tissue swelling. XR/XR foot RT 2V IMPRESSION: Mild DJD distal foot. Abnormal appearing first tarsometatarsal joint question fracture of medial cuneiform. If patient has pain in this region and has history of trauma a CT of foot can be performed.
== END 2023-10-11 13:01 | disposition home or self-care (01) ==
LOC: HO.HMGCX 13:00
PROVIDERS: PCP Nurse Practitioner Family; Visit Provider Physician Assistant Medical
DX: M79.671 Pain in right foot (principal)
CPT/HCPCS: 73620

== ENCOUNTER 2023-12-23 11:55 | Emergency (ER) | payer MEDICARE, OTHER, SELFPAY ==
--- NOTE | ~2023-12-23 | CT_ITS ---
EXAMINATION: CT HEAD WITHOUT CONTRAST CLINICAL INFORMATION: Headache. COMPARISON: 09/27/2022 TECHNIQUE: Contiguous axial imaging was performed from the skull base to vertex without intravenous administration of contrast. This CT examination was performed using dose optimization techniques as appropriate, variously including the following: *Automated exposure control *Adjustment of mA and/or kV according to patient size (this includes techniques or standardized protocols for targeted exams where dose is matched to indication/reason for exam; i.e. extremities or head) *Use of iterative reconstruction technique DLP: 609 mGy-cm FINDINGS: There is no evidence of acute intracranial hemorrhage or territorial infarction. No mass effect or midline shift is seen. [place] to white matter differentiation is preserved. No extra-axial fluid collections are identified. No hydrocephalus. The calvarium is intact. There is fluid in the mastoid air cells. There is moderate opacification of the ethmoid air cells and right sphenoid sinus. There is an air-fluid level in the left sphenoid sinus. There is mucosal thickening of bilateral maxillary sinus. CT/CT head/brain wo IV con IMPRESSION: No acute intracranial pathology. Pansinus disease with air-fluid level in the left sphenoid sinus.
[2023-12-23 12:31] VITALS: BP 146/55; PULSE 95; RESP 20; TEMP 36.7; O2SAT 97; BMI 24.2
--- NOTE | 2023-12-23 12:33 | ECG_ITS ---
Test Reason : n/v Blood Pressure : / mmHG Vent. Rate : 099 BPM Atrial Rate : 099 BPM P-R Int : 166 ms QRS Dur : 054 ms QT Int : 338 ms P-R-T Axes : 056 026 052 degrees QTc Int : 433 ms Normal sinus rhythm Low voltage QRS Septal infarct (cited on or before 14-JAN-2023) Abnormal ECG When compared with ECG of 14-JAN-2023 17:17, QRS axis Shifted left Questionable change in initial forces of Septal leads Questionable change in initial forces of Lateral leads ST now depressed in Anterior leads T wave inversion no longer evident in Lateral leads Referred By: Alvarado Moreno Electronically Signed By:
--- NOTE | 2023-12-23 12:36 | ED.GENADULT ---
HPI - General Adult General Chief complaint: Headache Stated complaint: Vomiting X 5 Days Time Seen by Provider: 12/23/23 19:18 Source: patient and old records reviewed Mode of arrival: ambulatory Limitations: no limitations History of Present Illness HPI narrative: 53 yo female with PMH of insomnia, bipolar, anxiety, chronic back pain, IBS, anemia notes one week ago she had a lot of coughing, congestion then developed n/v and severe global worsening headache and just does not feel well still. The headache has worsened every day. Not on thinners, no fevers, able to move neck. No numbness, weakness, change in vision. loud noises and bright lights bother her. complaint: headache Onset (ago): day(s) (5) Location: head Radiation: non-radiation Severity: severe Quality: crushing and constant Pain Consistency: constant Relieving factors: rest Exacerbating factors: other (noise, bright lights) Associated symptoms: nausea/vomiting Treatments prior to arrival: none Related Data Home Medications ?Medication ?Instructions ?Recorded ?Confirmed ascorbic acid (vitamin C) 500 mg 500 mg PO BEDTIME 01/14/23 08/05/23 chewable tablet zolpidem 10 mg tablet 10 mg PO BEDTIME PRN 04/08/23 08/05/23 mirtazapine 15 mg tablet 45 mg PO DAILY 06/21/23 08/05/23 olanzapine 20 mg tablet 20 mg PO BEDTIME 08/05/23 08/05/23 clonazepam 0.5 mg tablet mg PO 10/11/23 Previous Rx's ?Medication ?Instructions ?Recorded simethicone 80 mg chewable tablet 80 mg PO QIDWMHS 30 days #120 tabs 01/18/23 (Gas Relief (simethicone)) divalproex 500 mg tablet,extended 1,000 mg (2 x 500 mg) PO BEDTIME 02/19/23 release 24 hr (Depakote ER) 30 days #60 tabs prazosin 5 mg capsule 5 mg PO BEDTIME 30 days #30 caps 02/19/23 meloxicam 15 mg tablet 15 mg PO DAILY #14 tabs 03/04/23 ondansetron 4 mg disintegrating 4 mg PO Q8H PRN nausea and 06/21/23 tablet vomiting #9 tabs tizanidine 4 mg tablet 16 mg (4 x 4 mg) PO BEDTIME 30 11/29/23 days #120 tabs amoxicillin 875 mg-potassium 1 tab PO BID #19 tabs 12/23/23 clavulanate 125 mg tablet ondansetron 4 mg disintegrating 4 mg PO Q8H PRN nausea and 12/23/23 tablet vomiting #20 tabs Allergies Allergy/AdvReac Type Severity Reaction Status Date / Time duloxetine [From CYMBALTA] Allergy Unknown Hallucinati Verified 12/23/23 12:34 ons morphine [MORPHINE] Allergy Unknown HALLUCINATI Verified 12/23/23 12:34 ONS Phenylpiperazine AdvReac Severe hallucinati Verified 12/23/23 12:34 Antidepressant ons Tetracyclic Antidepressants AdvReac Severe hallucinati Verified 12/23/23 12:34 ons fentanyl [FENTANYL] AdvReac Unknown Hallucinati Verified 12/23/23 12:34 ons Review of Systems Review of Systems: Constitutional : No Fever, No Chills, No Fatigue ENT/Mouth : No sore throat, No Rhinorrhea Eyes: No Eye Pain, No Swelling, No Redness Cardiovascular : No Chest Pain, No SOB, No Dyspnea on Exertion Respiratory : No Cough, No Sputum Gastrointestinal : pos Nausea, pos Vomiting, No Diarrhea, No abdominal Pain Genitourinary : No Dysuria, No Urinary Frequency, No Hematuria, Musculoskeletal : No joint pain, No Myalgias, No Joint Swelling Skin : No Skin Lesions, No rash Neuro : No Weakness, No Numbness, No Dizziness, positive Headache Psych : No Anxiety/Panic, No Depression All other systems reviewed and are negative PMFSH Past Medical History Attestation statement: The following information was validated with the patient. 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 Paralysis Neck pain Mental status change resolved Medication side effects Lumbar radiculitis Low ferritin Low back pain Leukocytosis Gluteal pain Gastric stress ulcer Dysconjugate gaze Cough Gonsalves hemangioma Cervical spinal cord compression Cervical radiculitis Anal fissure Vitamin D deficiency Vaginal discharge Underweight Tubular adenoma Sleep disturbance Right cervical radiculopathy Rash Presbycusis Plantar wart Pharyngitis Paresthesia of right upper limb Panic attacks Muscle spasm Leg weakness Left rib fracture Irritable bowel syndrome Fibromyalgia Dysuria Depression Contact dermatitis Chronic pain Chronic night sweats Chronic narcotic use Chronic diarrhea Anxiety Anemia Surgical History H/O lumbar discectomy Hx of colonoscopy H/O colectomy H/O laparoscopy H/O endoscopy S/P cervical discectomy Family History Family History Father AAA (abdominal aortic aneurysm) Mother TMJ (temporomandibular joint disorder) Social History Social History Household Members: Friend(s) Household Members Other:: Boyfriend Housing: Condominium Do you presently have visiting nurse or other home services: No Alcohol intake: unknown Patient Tobacco Use Status: Never used Tobacco e-Cigarette/Vaping Use: Never Used Second Hand Smoke Exposure: No Substance Use Type: Marijuana Advance Directives: Yes Advance Directives on File: Yes Advance Directives Date on File: 09/13/22 service: No Current occupational status: disabled Current occupational exposures/hazards: No Sexual orientation: Straight/Heterosexual Cognitive needs: No Hearing needs: No Vision needs: Yes Physical Exam ED Vital Signs: Vital Signs - 24 hr 12/23/23 12:31 12/23/23 19:18 Temperature 98.1 F 97.9 F Pulse Rate 95 88 Respiratory Rate 20 17 Blood Pressure 146/55 H 143/84 H Pulse Oximetry 97 98 Oxygen Delivery Method Room Air Room Air BMI result Body Mass Index 24.2 Appearance: Alert. Oriented X3. No acute distress. Eyes: Pupils equal, round and reactive to light. ENT: Pharynx normal. Neck: Normal inspection. Neck supple. no meningeal signs CVS: Normal heart rate and rhythm. Pulses normal. Respiratory: No respiratory distress. Breath sounds normal. Abdomen: Soft and nontender. Skin: Skin warm and dry. Normal skin color. Normal skin turgor. Extremities: No lower extremity edema. No calf ttp Neuro: Oriented X 3. No motor deficit. No sensory deficit. Course Course Course Narrative: RME: 53 female presents to ED for headache nausea vomiting for the past 5 days. Patient has severe insomnia not able to sleep. Patient Stopped taking her insomnia meds. Patient states some photophobia, labs ordered Reevaluation(s) Reevaluation #1: states IV dilaudid helps when she has pain - given dose pain improved stable for DC Medications Administered Discontinued Medications Generic Name Dose Route Start Last Admin Trade Name Kirsty PRN Reason Stop Dose Admin Droperidol 1.25 mg 12/23/23 19:29 12/23/23 19:54 Droperidol 5 Mg/2 Ml Vial IVPUSH 12/23/23 19:30 1.25 mg ONCE ONE Administration Sodium Chloride 1,000 mls @ 999 mls/hr 12/23/23 19:30 12/23/23 19:54 Ns IV 12/23/23 20:30 999 mls/hr .Q1H1M PEDRITO Administration Lorazepam 1 mg 12/23/23 19:29 12/23/23 19:54 Lorazepam 2 Mg/Ml Vial IVPUSH 12/23/23 19:30 1 mg STAT STA Administration Medical Decision Making Medical Decision Making MDM Narrative: 53 yo female with PMH of insomnia, bipolar, anxiety, chronic back pain, IBS, anemia here with progressively worse headache after URI - at this time no fevers, no meningeal signs not toxic appearing neuro intact not on thinners will obtain labs, CT scan for mass - IV medications for supportive care ordered Differential Diagnosis Differential Diagnoses: The differential diagnosis associated with the presentation includes tension, dehydration, sinus infection, viral syndrome, migraine given worsening symptoms over 5 days doubt ICH Admission/Observation Consideration of admission/observation: Escalation of care including admission/observation considered feels better stable for DC Lab Data [facility] Lab Attestation statement: I reviewed the patient's lab results. 12/23/23 13:37 12/23/23 13:37 Labs: Lab Results 12/23/23 12/23/23 Range/Units 13:32 13:37 WBC 10.8 (4.8-10.8) X10*3/uL RBC 4.54 (4.20-5.50) X10*6/uL Hgb 14.5 (12.0-16.0) g/dl Hct 42.0 (37.0-47.0) % MCV 92.5 (80.0-98.0) fL MCH 31.9 (27.0-33.0) pg MCHC 34.5 (31.0-35.0) g/dl RDW 12.2 (11.0-16.0) % Plt Count 497 H (160-400) X10*3/uL MPV 8.8 L (9.4-12.3) fL Immature Gran % (Auto) 0.4 (0.0-0.4) % Neut % (Auto) 73.6 H (45-73) % Lymph % (Auto) 20.8 (20-40) % [place] % (Auto) 4.3 (2-11) % Eos % (Auto) 0.2 (0-4) % Baso % (Auto) 0.7 (0-2) % Lymph # (Auto) 2.3 (1.2-4.9) X10*3/uL [place]ion # (Auto) 0.5 (0.1-1.2) X10*3/uL Eos # (Auto) 0.0 (0.0-0.4) X10*3/uL Baso # (Auto) 0.1 (0.0-0.2) X10*3/uL Abs Immat Gran (auto) 0.04 H (0.00-0.03) X10*3/uL Absolute Neuts (auto) 8.0 (2.0-8.3) x10*3/uL Absolute Nucleated RBC 0.000 (0.0-0.012) X10*3/uL Nucleated RBC % (auto) 0.0 (0.0-0.2) /100WBC PT 10.6 L (11.1-13.3) SEC INR 0.9 (0.9-1.1) APTT 27.3 (26.0-36.8) SEC Sodium 142 (135-145) mmol/L Potassium 3.5 (3.3-5.1) mmol/L Chloride 107 (96-108) mmol/L Carbon Dioxide 25 (22-29) mmol/L Anion Gap 14 (12-20) BUN 9 (9-16) mg/dL Creatinine 0.77 (0.5-1.4) mg/dL Estim Creat Clear Calc 78.1 Estimated GFR > 60 Random Glucose 115 (60-115) mg/dL Calcium 8.5 D (8.4-10.2) mg/dL Total Bilirubin 0.5 (0.0-1.0) mg/dL AST 14 (5-31) U/L ALT 12 (0-31) U/L Alkaline Phosphatase 93 (39-117) U/L Troponin I High Sens < 2.7 (<3.5-17.0) ng/L Total Protein 6.7 (6.5-8.0) g/dL Albumin 4.0 (3.5-5.0) g/dL Beta HCG, Quant < 2 mIU/mL Urine Color Yellow Urine Appearance Cloudy Urine pH 6.0 (5.0-9.0) Ur Specific [place] >= 1.030 H (1.005-1.025) Urine Protein 30 (1+) H (Neg-Trace) mg/dL Urine Glucose (UA) Negative (Negative) mg/dL Urine Ketones 15 (Negative) mg/dL Urine Blood Negative (Negative) Urine Nitrite Negative (Negative) Ur Leukocyte Esterase Negative (Negative) Urine RBC 0-2 (0-2) /HPF Urine WBC 0-5 (0-5) /HPF Ur Squamous Epith Cells >20 (0-2) /HPF Urine Bacteria Trace (None Seen) Hyaline Casts 0-2 (0-2) /LPF Urine Opiates Screen Not Detected (Not Detect) Urine Fentanyl Screen Not Detected (Not Detect) Ur Barbiturates Screen Not Detected (Not Detect) Ur Phencyclidine Scrn Not Detected (Not Detect) Ur Amphetamines Screen Not Detected (Not Detect) U Benzodiazepines Scrn Not Detected (Not Detect) Urine Cocaine Screen Not Detected (Not Detect) U Marijuana (THC) Screen Not Detected (Not Detect) Influenza Type A (PCR) NEGATIVE (Negative) Influenza Type B (PCR) NEGATIVE (Negative) RSV RNA Qual (PCR) NEGATIVE (Negative) SARS-CoV-2 RNA (RT-PCR) NEGATIVE (Negative) Independent Interpretation I performed an independent interpretation of an: EKG and CT Scan (sinusitis) Interpretation: Rate: 89 Rhythm: NSR [place]: normal Normal P waves. Normal GORAN. Normal QRS complex. ST T wave : normal no BRUNA qTC: 459 prior studies: no acute ischemia The study has been interpreted contemporaneously by me. . Radiology Impression Discussion of test interpretation with radiology: I have reviewed the radiologist's reading. External Record Review External record reviewed: Inpatient record Prescription Management I considered prescription management with: Antibiotic Critical Care Time Critical Care Time Critical Care Time: Yes Total Critical Care Time: 35 Attestation: review of records, IV dilaudid for pain with improvement, repeat assessments I attest to this time spent taking care of the patient Discharge Plan Discharge Clinical Impression: Acute pansinusitis Qualifiers: Recurrence: non-recurrent Qualified Code(s): J01.40 - Acute pansinusitis, unspecified Vomiting Qualifiers: Vomiting type: unspecified Nausea presence: with nausea Qualified Code(s): R11.2 - Nausea with vomiting, unspecified Patient Disposition: Home, Self-Care Instructions: Sinusitis (ED), Acute Nausea and Vomiting (ED) Additional Instructions: finish all antibiotics. return for worsening symptoms - confusion, severe headaches, inability to eat or drink or any other concerns. follow up with your doctor in 2 days. Prescriptions: New ondansetron 4 mg tablet,disintegrating 4 mg PO Q8H PRN (Reason: nausea and vomiting) Qty: 20 0RF amoxicillin-pot clavulanate 875-125 mg tablet 1 tab PO BID Qty: 19 0RF No Action divalproex [Depakote ER] 500 mg tablet extended release 24 hr 1,000 mg PO BEDTIME 30 Days Qty: 60 3RF prazosin 5 mg capsule 5 mg PO BEDTIME 30 Days Qty: 30 3RF Protocol: Hold for SBP< HOLD for SBP < : 90 tizanidine 4 mg tablet 16 mg PO BEDTIME 30 Days Qty: 120 1RF ascorbic acid (vitamin C) 500 mg Tablet,Chewable 500 mg PO BEDTIME simethicone [Gas Relief (simethicone)] 80 mg Tablet,Chewable 80 mg PO QIDWMHS 30 Days Qty: 120 0RF zolpidem 10 mg tablet 10 mg PO BEDTIME PRN mirtazapine 15 mg tablet 45 mg PO DAILY ondansetron 4 mg tablet,disintegrating 4 mg PO Q8H PRN (Reason: nausea and vomiting) Qty: 9 0RF olanzapine 20 mg tablet 20 mg PO BEDTIME meloxicam 15 mg tablet 15 mg PO DAILY Qty: 14 0RF clonazepam 0.5 mg tablet PO Stand Alone Forms: Work/School Release Print Language: Syriac
--- NOTE | 2023-12-23 13:39 | ECG_ITS ---
Test Reason : n/v Blood Pressure : / mmHG Vent. Rate : 089 BPM Atrial Rate : 089 BPM P-R Int : 152 ms QRS Dur : 068 ms QT Int : 378 ms P-R-T Axes : 061 017 043 degrees QTc Int : 459 ms Normal sinus rhythm Low voltage QRS Borderline ECG When compared with ECG of 23-DEC-2023 13:17, No significant change was found Referred By: Alvarado Moreno Electronically Signed By:Payam Cuenca
[2023-12-23 13:43] LABS: MANUAL DIFF FLAG NO
[2023-12-23 13:44] LABS: Basophils Absolute Auto 0.1 X10*3/uL (0.0-0.2); Basophils Percent Auto 0.7 % (0-2); Eosinophils Percent Auto 0.2 % (0-4); Hemoglobin 14.5 g/dl (12.0-16.0); Imm Gran Abs Auto 0.04 X10*3/uL (0.00-0.03); Imm Gran Pct Auto 0.4 % (0.0-0.4); Lymphocytes Absolute Auto 2.3 X10*3/uL (1.2-4.9); Lymphocytes Percent Auto 20.8 % (20-40); Mean Corpuscular HGB Conc 34.5 g/dl (31.0-35.0); Mean Corpuscular Hemoglobin 31.9 pg (27.0-33.0); Mean Corpuscular Volume 92.5 fL (80.0-98.0); Mean Platelet Volume 8.8 fL (9.4-12.3); Monocytes Absolute Auto 0.5 X10*3/uL (0.1-1.2); Monocytes Percent Auto 4.3 % (2-11); Neutrophils Percent Auto 73.6 % (45-73); Platelet Count 497 X10*3/uL (160-400); Red Blood Count 4.54 X10*6/uL (4.20-5.50); Red Cell Distribution Width 12.2 % (11.0-16.0); White Blood Count 10.8 X10*3/uL (4.8-10.8)
[2023-12-23 13:49] LABS: Appearance Urine Cloudy; Color Urine Yellow; Glucose Urine UA Negative (Negative); Leukocyte Esterase Urine Negative (Negative); Nitrite Urine Negative (Negative); Specific Gravity - Urine >= 1.030 (1.005-1.025); UMIC TRIGGER UACC YES; Urine Blood Negative (Negative); Urine Ketones 15 mg/dL (Negative); Urine Protein 30 (1+) mg/dL (Neg-Trace)
[2023-12-23 13:58] LABS: Alanine Aminotransferase 12 U/L (0-31); Alkaline Phosphatase 93 U/L (39-117); Anion Gap 14 (12-20); Aspartate Amino Transferase 14 U/L (5-31); Bilirubin Total 0.5 mg/dL (0.0-1.0); Blood Urea Nitrogen 9 mg/dL (9-16); Calcium 8.5 mg/dL (8.4-10.2); Carbon Dioxide 25 mmol/L (22-29); Chloride 107 mmol/L (96-108); Creatinine Clr Calc Pharmacy 78.1; Estimated Glomerular Filt Rate > 60; Glucose Random 115 mg/dL (60-115); INTERNATIONAL NORM RATIO 0.9 (0.9-1.1); Potassium 3.5 mmol/L (3.3-5.1); Prothrombin Time 10.6 SEC (11.1-13.3); Sodium 142 mmol/L (135-145); Total Protein 6.7 g/dL (6.5-8.0)
[2023-12-23 14:01] LABS: Partial Thromboplastin Time 27.3 SEC (26.0-36.8)
[2023-12-23 14:04] LABS: Amphetamine Screen Urine Not Detected (Not Detect); Barbiturates, Urine Not Detected (Not Detect); Benzodiazepines Screen Urine Not Detected (Not Detect); Cannabinoid Screen Urine Not Detected (Not Detect); Cocaine Screen Urine Not Detected (Not Detect); Fentanyl, urine Not Detected (Not Detect); Opiate Screen Urine Not Detected (Not Detect); Phencyclidine Screen Urine Not Detected (Not Detect)
[2023-12-23 14:07] LABS: HCG Quantitative < 2 mIU/mL; Troponin-I High Sensitivity < 2.7 ng/L (<3.5-17.0)
[2023-12-23 14:13] LABS: Bacteria Urine Trace (None Seen); Hyaline Casts Urine 0-2 /LPF (0-2); RBC Urine 0-2 /HPF (0-2); Squamous Epithelial Cell Urine >20 /HPF (0-2); WBC Urine 0-5 /HPF (0-5)
[2023-12-23 14:23] LABS: Influenza A PCR NEGATIVE (Negative); Influenza B PCR NEGATIVE (Negative); Resp Syncy Virus RNA Qual PCR NEGATIVE (Negative); SARS COV2 PCR INHOUSE NEGATIVE (Negative)
[2023-12-23 19:18] VITALS: BP 143/84; PULSE 88; RESP 17; TEMP 36.6; O2SAT 98
[2023-12-23] MEDS: LORazepam 2 MG/ML VIAL 1 MG IVPUSH (19:54)
[2023-12-23] MEDS: 0.9 % Sodium Chloride 1,000 ML 999 ML IV (19:54)
[2023-12-23] MEDS: droPERidol 5 MG/2 ML VIAL 1.25 MG IVPUSH (19:54)
[2023-12-23 20:52] VITALS: BP 142/93; PULSE 75; RESP 16; TEMP 36.8; O2SAT 96
[2023-12-23] MEDS: HYDROmorphone HCl 1 MG/ML SYRINGE IVPUSH (20:55)
[2023-12-23] MEDS: Amoxicillin/Potassium Clav 875 MG TABLET PO (20:55)
[2023-12-23 21:00] VITALS: BP 142/93; PULSE 75; RESP 16; TEMP 36.8; O2SAT 96
== END 2023-12-23 21:06 | disposition home or self-care (01) ==
PROVIDERS: Physician Assistant; Emergency Provider Emergency Medicine
DX: J01.40 Acute pansinusitis, unspecified (principal); R11.2 Nausea with vomiting, unspecified; Z03.818 Encounter for observation for suspected exposure to other biological agents ruled out
CPT/HCPCS: 0241U; 36415; 70450; 80053; 80307; 81001; 84484; 84702; 85025; 85610; 85730; 93005; 96361; 96374; 96375; 99284; J1170; J1790; J2060

== ENCOUNTER → 2023-12-23 13:39 | Outpatient (BNV) | payer MEDICARE, OTHER, SELFPAY | PROVIDERS: Emergency Provider Emergency Medicine; Visit Provider Internal Medicine Cardiovascular Disease | DX: R94.31 Abnormal electrocardiogram [ECG] [EKG] (principal) | CPT/HCPCS: 93010 ==

== ENCOUNTER 2024-05-26 12:52 | Outpatient (AMB) | payer MEDICARE, SELFPAY ==
--- NOTE | 2024-05-26 12:54 | A.OFFPC_ITS ---
Vital Signs 05/26/24 13:08 Height 5 ft 6 in Weight 189 lb 13.088 oz BMI 30.6 BP 108/70 Blood Pressure Location Rt brachial Position Sitting Respiration 16 Pulse 87 Pulse Source Pulse Oximeter Temp 98.5 F Temp Source Oral Pulse Oximetry (%) 96 Oxygen Delivery Method Room Air Intake Visit Reasons: home help/fu on medication Intake Note: patient here follow up on medication and needs help at home. Health And Wellness Coach Required: No Is last menstrual period known: Yes Last menstrual period: 05/05/24 Post menopausal: No Patient : No Allergies duloxetine [From CYMBALTA] Allergy (Unknown, Verified 05/26/24 13:02) Hallucinations morphine [MORPHINE] Allergy (Unknown, Verified 05/26/24 13:02) HALLUCINATIONS Phenylpiperazine Antidepressant Adverse Reaction (Severe, Verified 05/26/24 13:02) hallucinations Tetracyclic Antidepressants Adverse Reaction (Severe, Verified 05/26/24 13:02) hallucinations fentanyl [FENTANYL] Adverse Reaction (Unknown, Verified 05/26/24 13:02) Hallucinations Medication List - Last Reviewed 05/26/24 by Nadeen Pierre ascorbic acid (vitamin C) 500 mg PO BEDTIME clonazepam 2 mg PO BEDTIME divalproex ER (Depakote ER) 1,000 mg (2 x 500 mg) PO BEDTIME 30 days meloxicam 15 mg PO DAILY mirtazapine 15 mg PO DAILY olanzapine 5 mg PO BEDTIME olanzapine 20 mg PO BEDTIME simethicone (Gas Relief (simethicone)) 80 mg PO QIDWMHS 30 days tizanidine 8 mg (2 x 4 mg) PO BEDTIME 30 days zolpidem 10 mg PO BEDTIME PRN Tobacco use date assessed: 05/26/24 Dental Screening Dental Screen Date: 05/26/24 Did you have a dental visit in the last 12 months?: No Did you have a dental problem in the last 6 months where you did not have access to dental care?: No Was dental information given to patient?: Yes HPI HPI Comments History of Present Illness Details 53-year-old female presents with concern for her tizanidine which was recently decreased from 16mg to 8mg daily. She notes that she has been on tizanidine 16mg every night for sleep for several years. She is followed by psychiatrist at [facility]. She is on zolpidem 10mg, clonazepam 2mg QHS, olanzapine 25mg QHS, Depakote 1000mg QHS, and mirtizapine 15mg QHS. She notes that her psychiatrist wants her to continue taking tizanidine 16mg QHS for sleep. She notes history of low back pain with L5 issue. He had L5 surgical repair down with Dr. Kowalski, [facility] orthopedics, and L4 repair at a orthopedics facility in [place]. She opted L5 fusion that was recommended. [place] [facility] [place]. She notes persistent chronic low back pain with radiation to her LLE. She notes that she is not able to carry heavy objects, including vacuum clear, up and down her stairs. 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 Paralysis Neck pain Mental status change resolved Medication side effects Lumbar radiculitis Low ferritin Low back pain Leukocytosis Gluteal pain Gastric stress ulcer Dysconjugate gaze Cough Gonsalves hemangioma Cervical spinal cord compression Cervical radiculitis Anal fissure Vitamin D deficiency Vaginal discharge Underweight Tubular adenoma Sleep disturbance Right cervical radiculopathy Rash Presbycusis Plantar wart Pharyngitis Paresthesia of right upper limb Panic attacks Muscle spasm Leg weakness Left rib fracture Irritable bowel syndrome Fibromyalgia Dysuria Depression Contact dermatitis Chronic pain Chronic night sweats Chronic narcotic use Chronic diarrhea Anxiety Anemia Surgical History H/O lumbar discectomy Hx of colonoscopy H/O colectomy H/O laparoscopy H/O endoscopy S/P cervical discectomy Family History Father AAA (abdominal aortic aneurysm) Mother TMJ (temporomandibular joint disorder) Social History Household Members: Friend(s) Household Members Other:: Boyfriend Housing: Condominium Do you presently have visiting nurse or other home services: No Alcohol intake: unknown Patient Tobacco Use Status: Never used Tobacco e-Cigarette/Vaping Use: Never Used Second Hand Smoke Exposure: No Substance Use Type: Marijuana Advance Directives Date on File: 09/13/22 service: No Current occupational status: disabled Current occupational exposures/hazards: No Sexual orientation: Straight/Heterosexual Cognitive needs: No Hearing needs: No Vision needs: Yes Female Reproductive History Menstrual Date of last menstrual period: 05/05/24 Questionnaire Thrive Questionnaire Date Thrive assessed: 02/12/23 DAYANNA-7 AMB Questionnaire DAYANNA-7 Date DAYANNA - 7 assessed: 08/05/23 Source: Developed by Drs. Darrian Chavez, Charlee Mckeon, Popeye Swann and colleagues, with an educational jhon from [employer] other things you bake. Review of Systems Const Details: Const Denies chills, Denies fatigue, Denies fever(s), Denies headache(s) and Denies weakness ENT Denies dizziness and Denies headache(s) Card Denies chest pain, Denies lightheadedness, Denies dyspnea and Denies other (Palpitations) Resp Denies cough, Denies dyspnea, Denies wheezing and Denies other ( shortness of breath) GI Denies abdominal pain, Denies melena, Denies hematochezia, Denies change in bowel habits, Denies dyspepsia and Denies nausea Denies hematuria and Denies dysuria Musc Denies abnormal gait, Denies myalgias, Denies arthralgias, Denies numbness and Denies tingling Skin/Breast Denies rash, Denies unusual bruising and Denies wounds Neuro Denies abnormal gait, Denies dizziness, Denies headache(s), Denies memory loss, Denies numbness, Denies Sensory deficit (Neuro), Denies tingling and Denies weakness Psych Denies anxiety, Denies depression, Denies memory loss Endo Denies cold intolerance, Denies fatigue, Denies heat intolerance, Denies polydipsia and Denies polyuria Aller/Immun Denies wheezing Physical exam (Primary Care) Vital Signs: Last Vital Signs Temp 98.5 F 05/26/24 13:08 Pulse 87 05/26/24 13:08 Resp 16 05/26/24 13:08 BP 108/70 05/26/24 13:08 Pulse Ox 96 05/26/24 13:08 Oxygen Delivery Method Room Air 05/26/24 13:08 BMI result Body Mass Index 30.6 Tobacco/Smoking Status: Tobacco use Status Tobacco use date assessed 05/26/24 05/26/24 13:05 Patient Tobacco Use Status Never used Tobacco 05/26/24 12:58 e-Cigarette/Vaping Use Never Used 05/26/24 12:58 Thrive Assessment: Date of Thrive Assessment Date Thrive assessed 02/12/23 05/26/24 12:58 Const Other: General: no acute distress and well developed Nutritional Appearance: well nourished Orientation/consciousness: patient oriented x3 HENMT Head: Yes normocephalic and Yes atraumatic Eyes General: appearance normal, both eyes and all related structures Pupils: Equal, round and reactive pupils present EOM: EOMs intact bilaterally Resp Effort & Inspection: normal respiratory effort Auscultation: clear to auscultation bilaterally Cardio Rate: regular rate Rhythm: regular rhythm Heart sounds: S1 normal heart sound present, S2 normal heart sound present, no gallops, no murmurs and no rubs GI Palpation (GI): No Abdominal aortic bruit present, Soft to palpation, nontender, No hepatosplenomegaly present and No Rebound tenderness present Auscultation: normal bowel sounds General: Yes no CVA tenderness Back/Spine/Pelvis Back: no CVA tenderness Cervical Spine: cervical ROM normal and No Cervical spine tenderness Thoracic/Lumbar Spine: thoraco-lumbar ROM normal, No pain with thoraco-lumbar ROM, No thoracic spinal tenderness and lumbar spinal tenderness Extrem General: Yes normal to inspection, No edema and No calf tenderness Skin General: warm and dry. Normal skin color. Normal skin turgor Neuro General: patient oriented x3, gait normal and no focal neuro deficit Cranial nerves: Yes Equal, round and reactive pupils present Cognition (Neuro): normal cognition Gait exam (Neuro): Normal gait present Sensory Exam: No Sensory deficit (Neuro) Psych Appearance: grossly normal Affect: normal affect Attitude: cooperative Thought process: Normal thought process present Coding Level of Care Code Est Pt Level 4 (37774) Diagnoses Lumbar radiculopathy, chronic M54.16 Insomnia G47.00
[2024-05-26 13:08] VITALS: BP 108/70; PULSE 87; RESP 16; TEMP 36.9; O2SAT 96; BMI 30.6
== END 2024-05-26 13:44 | disposition home or self-care (01) ==
PROVIDERS: PCP Nurse Practitioner Family; Visit Provider Nurse Practitioner Family
DX: M54.16 Radiculopathy, lumbar region (principal); G47.00 Insomnia, unspecified; F31.9 Bipolar disorder, unspecified
CPT/HCPCS: 99214

== ENCOUNTER 2024-07-15 12:15 | Outpatient (AMB) | payer MEDICARE, SELFPAY ==
--- NOTE | 2024-07-15 12:18 | MHC.PC.OV ---
Vital Signs 07/15/24 12:29 07/15/24 13:06 Height 5 ft 6 in Weight 192 lb 8 oz BMI 31.1 BP 128/90 H 110/80 Blood Pressure Location Rt brachial Rt brachial Position Sitting Sitting Respiration 16 Pulse 97 Pulse Source Pulse Oximeter Temp 98.3 F Temp Source Oral Pulse Oximetry (%) 96 Oxygen Delivery Method Room Air Intake Visit Reasons: Muscle spasms Intake Note: patient here c/o muscle spasm Instrument/Control Technician Required: No Is last menstrual period known: Yes Last menstrual period: 07/07/24 Post menopausal: No Patient : No Allergies duloxetine [From CYMBALTA] Allergy (Unknown, Verified 07/15/24 12:44) Hallucinations morphine [MORPHINE] Allergy (Unknown, Verified 07/15/24 12:44) HALLUCINATIONS Phenylpiperazine Antidepressant Adverse Reaction (Severe, Verified 07/15/24 12:44) hallucinations Tetracyclic Antidepressants Adverse Reaction (Severe, Verified 07/15/24 12:44) hallucinations fentanyl [FENTANYL] Adverse Reaction (Unknown, Verified 07/15/24 12:44) Hallucinations Medication List - Last Reconciled 07/15/24 by Ann Monsivais CNP ascorbic acid (vitamin C) 500 mg PO BEDTIME clonazepam 2 mg PO BEDTIME divalproex ER (Depakote ER) 1,000 mg (2 x 500 mg) PO BEDTIME 30 days mirtazapine 15 mg PO DAILY olanzapine 5 mg PO BEDTIME olanzapine 20 mg PO BEDTIME simethicone (Gas Relief (simethicone)) 80 mg PO QIDWMHS 30 days tizanidine 8 mg (2 x 4 mg) PO BEDTIME 30 days Tobacco use date assessed: 05/26/24 Dental Screening Dental Screen Date: 07/15/24 Did you have a dental visit in the last 12 months?: No Did you have a dental problem in the last 6 months where you did not have access to dental care?: No Was dental information given to patient?: Yes HPI HPI Comments History of Present Illness Details 54-year-old female presents with complaints of muscle spasms to her lower back and bilateral lower extremities. She was on tizanidine 16 mg at bedtime for several years. She notes that the medication was prescribed for insomnia related to lower back and bilateral lower extremity spasms. Her spasms were improved and her PCP decreased tizanidine to 8 mg at bedtime in 02/2024 due to risk of severe sedation when combined with her psychotropic medications. The patient noted that her psychiatric provider wishes for the patient's PCP to continue prescribing tizanidine 16 mg at bedtime for insomnia. I spoke with the patient's psychiatric provider, Camille Faust, from [facility], last week and she informed me that the reported to her that her spasms returned after her tizanidine dose was decreased. The patient noted that her sleep has been interrupted as a result of the spasms. The patient noted history of low back pain with L5 issue. She had L5 surgical repair down with Dr. Kowalski, [facility] orthopedics, and L4 repair at a orthopedics facility in [place]; she opted L5 fusion that was recommended in February 2024 She notes intermittent muscle spasms to her left lower back with radiation to her left posterior thigh since her tizanidine dose was decreased to 8mg at bedtime in February. She notes that the spasms goes as high as 10/10. No recent fall, injury, or trauma. 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 Paralysis Neck pain Mental status change resolved Medication side effects Lumbar radiculitis Low ferritin Low back pain Leukocytosis Gluteal pain Gastric stress ulcer Dysconjugate gaze Cough Gonsalves hemangioma Cervical spinal cord compression Cervical radiculitis Anal fissure Vitamin D deficiency Vaginal discharge Underweight Tubular adenoma Sleep disturbance Right cervical radiculopathy Rash Presbycusis Plantar wart Pharyngitis Paresthesia of right upper limb Panic attacks Muscle spasm Leg weakness Left rib fracture Irritable bowel syndrome Fibromyalgia Dysuria Depression Contact dermatitis Chronic pain Chronic night sweats Chronic narcotic use Chronic diarrhea Anxiety Anemia Surgical History H/O lumbar discectomy Hx of colonoscopy H/O colectomy H/O laparoscopy H/O endoscopy S/P cervical discectomy Family History Father AAA (abdominal aortic aneurysm) Mother TMJ (temporomandibular joint disorder) Social History Household Members: Friend(s) Household Members Other:: Boyfriend Housing: Condominium Do you presently have visiting nurse or other home services: No Alcohol intake: unknown Patient Tobacco Use Status: Never used Tobacco e-Cigarette/Vaping Use: Never Used Second Hand Smoke Exposure: No Substance Use Type: Marijuana Advance Directives Date on File: 09/13/22 service: No Current occupational status: disabled Current occupational exposures/hazards: No Sexual orientation: Straight/Heterosexual Cognitive needs: No Hearing needs: No Vision needs: Yes Female Reproductive History Menstrual Date of last menstrual period: 07/07/24 Questionnaire PHQ-9 Over the last 2 weeks, how often have you been bothered by any of the following problems? 1. Little interest or pleasure in doing things: not at all 2. Feeling down, depressed, or hopeless: more than half the days 3. Trouble falling or staying asleep, or sleeping too much: more than half the days 4. Feeling tired or having little energy: not at all 5. Poor appetite or overeating: not at all 6. Feeling bad about yourself - or that you are a failure or have let yourself or your family down: several days 7. Trouble concentrating on things, such as reading the newspaper or watching television: not at all 8. Moving or speaking so slowly that other people could have noticed. Or the opposite - being so fidgety or restless that you have been moving around a lot more than usual: not at all 9. Thoughts that you would be better off or of hurting yourself in some way: not at all Total score: 5 12175 - PHQ-9 Billing: Yes Source: Developed by Drs. Darrian Chavez, Charlee Mckeon, Popeye Swann and colleagues, with an educational jhon from [employer] Thrive Questionnaire Date Thrive assessed: 07/15/24 I am a: Patient What is your living situation today?: I have a steady place to live Within the past 12 months, did the food you bought not last and you didn't have the money to get more?: Often true Within the past 12 months, did you worry whether your food would run out before you got money to buy more?: Often true Do you have trouble paying for medicines?: No Do you have trouble getting transportation to medical appointments?: Yes Do you have trouble paying your heating and electricity bill?: I choose not to answer this question Do you have trouble taking care of your child, family member or friend?: I choose not to answer this question Do you have trouble with day-to-day activities such as bathing, preparing meals, shopping, managing finances, etc.?: No Are you currently unemployed and looking for a job?: I choose not to answer this question Are you interested in more education?: I choose not to answer this question Please select the resources that you would like help with: Food and Education Currently or been in a relationship where the following occur: I choose not to answer THRIVE Score: 3 AUDIT C Alcohol Use Questionnaire (AUDIT-C) 1. How often do you have a drink containing alcohol?: 2-4 times a month 2. How many drinks containing alcohol do you have on a typical day when you are drinking?: 1 or 2 3. How often do you have six or more drinks on one occasion?: Never Total Score: 2 DAYANNA-7 AMB Questionnaire DAYANNA-7 Date DAYANNA - 7 assessed: 07/15/24 Feeling nervous, anxious, or on edge: 1 = Several days Not being able to stop or control worryin = Several days Worrying too much about different things: 1 = Several days Trouble relaxin = Several days Being so restless that it is hard to sit still: 0 = Not at all Becoming easily annoyed or irritable: 0 = Not at all Feeling afraid as if something awful might happen: 0 = Not at all Total DAYANNA-7 score (0-4 normal; 5-9 mild; 10-14 moderate; 15-21 severe): 4 Source: Developed by Drs. Darrian Chavez, Charlee Mckeon, Popeye Swann and colleagues, with an educational jhon from [employer] DAYANNA-7 Assessment Billing DAYANNA-7 Assessment Tool: DAYANNA-7 Assessment 80769 Review of Systems Const Details: Const Denies chills, Denies fatigue, Denies fever(s), Denies headache(s) and Denies weakness ENT Denies dizziness and Denies headache(s) Card Denies chest pain, Denies lightheadedness, Denies dyspnea and Denies other (Palpitations) Resp Denies cough, Denies dyspnea, Denies wheezing and Denies other ( shortness of breath) GI Denies abdominal pain, Denies melena, Denies hematochezia, Denies change in bowel habits, Denies dyspepsia and Denies nausea Denies hematuria and Denies dysuria Musc Reports as per HPI Skin/Breast Denies rash, Denies unusual bruising and Denies wounds Neuro Denies abnormal gait, Denies dizziness, Denies headache(s), Denies memory loss, Denies numbness, Denies Sensory deficit (Neuro), Denies tingling and Denies weakness Psych Denies anxiety, Denies depression, Denies memory loss Endo Denies cold intolerance, Denies fatigue, Denies heat intolerance, Denies polydipsia and Denies polyuria Aller/Immun Denies wheezing Physical exam (Primary Care) Tobacco/Smoking Status: Tobacco use Status Tobacco use date assessed 05/26/24 07/15/24 12:20 Patient Tobacco Use Status Never used Tobacco 07/15/24 12:20 e-Cigarette/Vaping Use Never Used 07/15/24 12:20 PHQ-9: PHQ-9 Score PHQ-9: Total score 5 07/15/24 12:26 Thrive Assessment: Date of Thrive Assessment Date Thrive assessed 07/15/24 07/15/24 12:26 Currently or been in a relationship where the following occur: I choose not to answer Const Other: General: no acute distress and well developed Nutritional Appearance: well nourished Orientation/consciousness: patient oriented x3 [facility] Head: Yes normocephalic and Yes atraumatic Eyes General: appearance normal, both eyes and all related structures Pupils: Equal, round and reactive pupils present EOM: EOMs intact bilaterally Resp Effort & Inspection: normal respiratory effort Auscultation: clear to auscultation bilaterally Cardio Rate: regular rate Rhythm: regular rhythm Heart sounds: S1 normal heart sound present, S2 normal heart sound present, no gallops, no murmurs and no rubs GI Palpation (GI): No Abdominal aortic bruit present, Soft to palpation, nontender, No hepatosplenomegaly present and No Rebound tenderness present Auscultation: normal bowel sounds General: Yes no CVA tenderness Back/Spine/Pelvis Back: no CVA tenderness Cervical Spine: cervical ROM normal and No Cervical spine tenderness Thoracic/Lumbar Spine: thoraco-lumbar ROM normal, No pain with thoraco-lumbar ROM, No thoracic spinal tenderness and lumbar spinal tenderness Extrem General: Yes normal to inspection, No edema and No calf tenderness. Negative straight leg raise bilaterally Skin General: warm and dry. Normal skin color. Normal skin turgor Neuro General: patient oriented x3, gait normal and no focal neuro deficit Cranial nerves: Yes Equal, round and reactive pupils present Cognition (Neuro): normal cognition Gait exam (Neuro): Normal gait present Sensory Exam: No Sensory deficit (Neuro) Psych Appearance: grossly normal Affect: normal affect Attitude: cooperative Thought process: Normal thought process present Coding Level of Care Code Est Pt Level 4 (37873) Diagnoses Muscle spasm M62.838 Lumbar radiculopathy, chronic M54.16 Additional Codes DAYANNA-7 Assessment Billing - DAYANNA-7 Assessment Tool: DAYANNA-7 Assessment 21331 ([id number]) Assessment & Plan Assessment & Plan (1) Muscle spasm: Code(s): M62.838 - Other muscle spasm Category: Medical Plan: Reports intermittent muscle spasms to her left lower back with radiation to her left posterior thigh since her tizanidine dose was decreased to 8mg at bedtime in February. She notes that the spasms increases as high as 10/10. Lumbar spine tenderness with palpation. Negative straight leg raise bilaterally. No overt signs of injury or trauma. Will increase tizanidine to 12 mg at bedtime. Advised to take as prescribed. Instructed on the risks, benefits, and potential adverse reactions of the medications. Will order x-ray of the lumbar spine and left pelvis. Referred to [facility] pain management. Follow-up with worsening or new symptoms. Verbalized understanding and agreed with the plan (2) Lumbar radiculopathy, chronic: Code(s): M54.16 - Radiculopathy, lumbar region Category: Medical Plan: Plan as above Orders: Orders XR lumbar spine 2-3V Today M62.838 - Other muscle spasm XR hip LT w [id number] Today M62.838 - Other muscle spasm Referrals Pain Management Referral M54.16 - Radiculopathy, lumbar region, M62.838 - Other muscle spasm Medications: Changed From tizanidine 8 mg (2 x 4 mg) PO BEDTIME 30 days 60 tabs 1RF To tizanidine 12 mg (3 x 4 mg) PO BEDTIME 30 days 90 tabs 1RF
[2024-07-15 12:29] VITALS: BP 128/90; PULSE 97; RESP 16; TEMP 36.8; O2SAT 96; BMI 31.1
[2024-07-15 13:06] VITALS: BP 110/80
== END 2024-07-15 13:14 | disposition home or self-care (01) ==
LOC: HO.HMCFM 12:15
PROVIDERS: PCP Nurse Practitioner Family; Visit Provider Nurse Practitioner Family
DX: M62.838 Other muscle spasm (principal); M54.16 Radiculopathy, lumbar region

== ENCOUNTER → 2024-07-15 12:15 | Outpatient (BNVA) | payer MEDICARE, SELFPAY | PROVIDERS: PCP Nurse Practitioner Family; Visit Provider Nurse Practitioner Family | DX: M62.838 Other muscle spasm (principal); M54.16 Radiculopathy, lumbar region | CPT/HCPCS: 96127; 99212 ==

== ENCOUNTER 2024-08-06 09:56 | Outpatient (AMB) | payer MEDICARE, SELFPAY ==
--- NOTE | 2024-08-06 10:05 | A.OFFPC_ITS ---
Vital Signs 08/06/24 10:10 Height 5 ft 6 in Weight 196 lb 8 oz BMI 31.7 BP 120/80 Blood Pressure Location Rt brachial Position Sitting Respiration 16 Pulse 105 H Pulse Source Pulse Oximeter Temp 98.1 F Temp Source Oral Pulse Oximetry (%) 96 Oxygen Delivery Method Room Air Intake Visit Reasons: CPE on / after 08/05/24 Intake Note: CPE Is last menstrual period known: Yes Last menstrual period: 07/09/24 Post menopausal: No Patient : No Allergies duloxetine [From CYMBALTA] Allergy (Unknown, Verified 08/06/24 10:36) Hallucinations morphine [MORPHINE] Allergy (Unknown, Verified 08/06/24 10:36) HALLUCINATIONS Phenylpiperazine Antidepressant Adverse Reaction (Severe, Verified 08/06/24 10:36) hallucinations Tetracyclic Antidepressants Adverse Reaction (Severe, Verified 08/06/24 10:36) hallucinations fentanyl [FENTANYL] Adverse Reaction (Unknown, Verified 08/06/24 10:36) Hallucinations Medication List - Last Reconciled 08/06/24 by Ann Monsivais CNP ascorbic acid (vitamin C) 500 mg PO BEDTIME clonazepam 2 mg PO BEDTIME divalproex ER (Depakote ER) 1,250 mg PO BEDTIME mirtazapine 15 mg PO DAILY olanzapine 5 mg PO BEDTIME olanzapine 20 mg PO BEDTIME simethicone (Gas Relief (simethicone)) 80 mg PO QIDWMHS 30 days tizanidine 8 mg PO BEDTIME Tobacco use date assessed: 05/26/24 Dental Screening Dental Screen Date: 07/15/24 HPI HPI Comments History of Present Illness Details The patient presents for an extended physical examination with ongoing chronic lumbar radiculopathy and spasms. She has past medical history significant for anxiety, depression, bipolar, sleep disturbance, chronic lumbar radiculopathy, and fibromyalgia The patient is a 54-year-old female presenting with an extended physical exam primarily for the management of chronic lumbar radiculopathy accompanied by muscle spasms. She reports chronic lower back pain radiating to the legs, specifically down the buttocks to just above the knees, characterized by severe spasms that impair mobility and gait. These symptoms have been persistent, and her management has included tizanidine, which was previously administered in a 16 mg nightly dosage, now reduced to 8 mg. The reduction has resulted in increased discomfort, hence, her interest in adjusting the medication back to 16 mg taken twice daily. The patient has fasting concerns due to prior misunderstanding regarding blood tests, which have been rescheduled for completion today. She has been compliant with her psychiatric care for anxiety, depression, and bipolar disorder, with mild depression noted on the PHQ-9 scale and anxiety being well-controlled. She denies consistent exercise but expresses new interest in increasing physical activity post dose adjustment. Her sleep patterns remain irregular, affected by ongoing psychotropic medication. She is followed monthly by a psychiatrist and was seeing a therapist bi-weekly; however, the frequency has recently declined. Social History - Reports infrequent exercise, primarily walking. - Consumes alcohol socially, approximate ly 12 drinks per month, primarily on weekends and occasional . - Denies smoking and vaping. - Reports consuming three beers and two martinis on drinking occasions. - Attends sessions with a therapist and psychiatrist but has not attended recent therapy sessions. Health Maintenance - Denies having recent vaccination for t he flu or other vaccinations such as the tetanus booster. Denies having shingles vaccines and declines vaccination. - Last mammogram date unclear, plans dis cussed for future scheduling. - Due for a colonoscopy referral followi ng discussion about past scheduling oversights. - Last Pap smear believed to be current within the past three years. -Last eye exam was 2 weeks ago. 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 Paralysis Neck pain Mental status change resolved Medication side effects Lumbar radiculitis Low ferritin Low back pain Leukocytosis Gluteal pain Gastric stress ulcer Dysconjugate gaze Cough Gonsalves hemangioma Cervical spinal cord compression Cervical radiculitis Anal fissure Vitamin D deficiency Vaginal discharge Underweight Tubular adenoma Sleep disturbance Right cervical radiculopathy Rash Presbycusis Plantar wart Pharyngitis Paresthesia of right upper limb Panic attacks Muscle spasm Leg weakness Left rib fracture Irritable bowel syndrome Fibromyalgia Dysuria Depression Contact dermatitis Chronic pain Chronic night sweats Chronic narcotic use Chronic diarrhea Anxiety Anemia Surgical History H/O lumbar discectomy Hx of colonoscopy H/O colectomy H/O laparoscopy H/O endoscopy S/P cervical discectomy Family History Father AAA (abdominal aortic aneurysm) Mother TMJ (temporomandibular joint disorder) Social History Household Members: Friend(s) Household Members Other:: Boyfriend Housing: Condominium Do you presently have visiting nurse or other home services: No Alcohol intake: unknown Patient Tobacco Use Status: Never used Tobacco e-Cigarette/Vaping Use: Never Used Second Hand Smoke Exposure: No Substance Use Type: Marijuana Advance Directives Date on File: 09/13/22 service: No Current occupational status: disabled Current occupational exposures/hazards: No Sexual orientation: Straight/Heterosexual Cognitive needs: No Hearing needs: No Vision needs: Yes Female Reproductive History Menstrual Date of last menstrual period: 07/09/24 Questionnaire PHQ-9 Over the last 2 weeks, how often have you been bothered by any of the following problems? 1. Little interest or pleasure in doing things: several days 2. Feeling down, depressed, or hopeless: not at all 3. Trouble falling or staying asleep, or sleeping too much: nearly every day 4. Feeling tired or having little energy: more than half the days 5. Poor appetite or overeating: not at all 6. Feeling bad about yourself - or that you are a failure or have let yourself or your family down: not at all 7. Trouble concentrating on things, such as reading the newspaper or watching television: not at all 8. Moving or speaking so slowly that other people could have noticed. Or the opposite - being so fidgety or restless that you have been moving around a lot more than usual: not at all 9. Thoughts that you would be better off or of hurting yourself in some way: not at all Total score: 6 Depression Screening Interpretation: Positive Depression Screening Done: Yes 16505 - PHQ-9 Billing: Yes Source: Developed by Drs. Darrian Chavez, Charlee Mckeon, Popeye Swann and colleagues, with an educational jhon from [employer]. Thrive Questionnaire Date Thrive assessed: 08/06/24 I am a: Patient What is your living situation today?: I have a steady place to live Within the past 12 months, did the food you bought not last and you didn't have the money to get more?: Often true Within the past 12 months, did you worry whether your food would run out before you got money to buy more?: Often true Do you have trouble paying for medicines?: No Do you have trouble getting transportation to medical appointments?: Yes Do you have trouble paying your heating and electricity bill?: I choose not to answer this question Do you have trouble taking care of your child, family member or friend?: I choose not to answer this question Do you have trouble with day-to-day activities such as bathing, preparing meals, shopping, managing finances, etc.?: No Are you currently unemployed and looking for a job?: I choose not to answer this question Are you interested in more education?: I choose not to answer this question Currently or been in a relationship where the following occur: I choose not to answer THRIVE Score: 3 AUDIT C Alcohol Use Questionnaire (AUDIT-C) 1. How often do you have a drink containing alcohol?: 2-4 times a month 2. How many drinks containing alcohol do you have on a typical day when you are drinking?: 1 or 2 3. How often do you have six or more drinks on one occasion?: Never Total Score: 2 Score Reviewed/Action Taken: Yes DAYANNA-7 AMB Questionnaire DAYANNA-7 Date DAYANNA - 7 assessed: 08/06/24 Feeling nervous, anxious, or on edge: 0 = Not at all Not being able to stop or control worryin = Not at all Worrying too much about different things: 1 = Several days Trouble relaxin = Not at all Being so restless that it is hard to sit still: 0 = Not at all Becoming easily annoyed or irritable: 0 = Not at all Feeling afraid as if something awful might happen: 0 = Not at all Total DAYANNA-7 score (0-4 normal; 5-9 mild; 10-14 moderate; 15-21 severe): 1 Source: Developed by Drs. Darrian Chavez, Charlee BPopeye Khanna and colleagues, with an educational jhon from [employer]. DAYANNA-7 Assessment Billing DAYANNA-7 Assessment Tool: DAYANNA-7 Assessment 78065 Review of Systems Const Details: Denies chills, Denies fatigue, Denies fever(s), Denies headache(s) and Denies weakness HEENT Denies change in vision, Denies dizziness, Denies headache(s), Denies hearing loss, Denies nasal congestion, Denies sinus pain, Denies sinus pressure and Denies sore throat Card Denies chest pain, Denies lightheadedness, Denies dyspnea and Denies other (palpitations) Resp Denies cough, Denies dyspnea and Denies wheezing GI Denies abdominal pain, Denies melena, Denies hematochezia, Denies change in bowel habits, Denies dyspepsia and Denies nausea Denies hematuria and Denies dysuria Musc Denies abnormal gait, Denies myalgias, Denies arthralgias, Denies numbness and Denies tingling Skin/Breast Denies rash, Denies unusual bruising and Denies wounds Neuro Denies abnormal gait, Denies dizziness, Denies headache(s), Denies memory loss, Denies numbness, Denies Sensory deficit (Neuro), Denies tingling and Denies weakness Psych Denies anxiety, Denies depression and Denies memory loss Endo Denies cold intolerance, Denies fatigue, Denies heat intolerance, Denies polydipsia and Denies polyuria Taz/Lymph Denies easy bleeding and Denies easy bruising Aller/Immun Denies wheezing Physical exam (Primary Care) Vital Signs: Last Vital Signs Temp 98.1 F 08/06/24 10:10 Pulse 105 H 08/06/24 10:10 Resp 16 08/06/24 10:10 BP 120/80 08/06/24 10:10 Pulse Ox 96 08/06/24 10:10 Oxygen Delivery Method Room Air 08/06/24 10:10 BMI result Body Mass Index 31.7 Tobacco/Smoking Status: Tobacco use Status Tobacco use date assessed 05/26/24 08/06/24 10:13 Patient Tobacco Use Status Never used Tobacco 08/06/24 10:13 e-Cigarette/Vaping Use Never Used 08/06/24 10:13 PHQ-9: PHQ-9 Score PHQ-9: Total score 6 08/06/24 10:25 Depression Screening Interpretation: Positive Thrive Assessment: Date of Thrive Assessment Date Thrive assessed 08/06/24 08/06/24 10:13 Currently or been in a relationship where the following occur: I choose not to answer Const Other: General: no acute distress, well developed, alert and awake Nutritional Appearance: well nourished Orientation/consciousness: patient oriented x3 HENND Head: Yes normocephalic and Yes atraumatic Ears: hearing grossly normal bilaterally and TM's normal bilaterally General nose exam: Normal external nose present and Normal nares present Mouth: Normal oral and palatal mucosa present and moist mucous membranes Teeth and gingiva: dentition normal Throat: Yes oropharynx normal Eyes Pupils: Equal, round and reactive pupils present and Pupil accommodation reflex normal EOM: EOMs intact bilaterally Neck Neck: Yes normal visual inspection, Yes no lymphadenopathy and Yes trachea midline Thyroid: Thyroid normal Carotids: no bruits Lymphatic: no lymphadenopathy noted Chest Chest palpation & inspection: normal inspection of the chest Resp Effort & Inspection: normal respiratory effort Auscultation: clear to auscultation bilaterally Cardio Rate: regular rate Rhythm: regular rhythm Heart sounds: S1 normal heart sound present, S2 normal heart sound present, no gallops, no murmurs and no rubs Bruits: no abdominal aortic bruits and no carotid bruits GI Palpation (GI): No Abdominal aortic bruit present, Soft to palpation, nontender, No hepatosplenomegaly present and No Rebound tenderness present Auscultation: normal bowel sounds General: Yes no CVA tenderness Back/Spine/Pelvis Back: no CVA tenderness Cervical Spine: cervical ROM normal and No Cervical spine tenderness Thoracic/Lumbar Spine: thoraco-lumbar ROM normal, No pain with thoraco-lumbar ROM, No thoracic spinal tenderness and +lumbar spinal tenderness Skin General: warm and dry. Normal skin color. Normal skin turgor Lesions: no lesions Rashes: no rashes Trauma: no lacerations or abrasions Wounds: no wounds Nails: normal Neuro General: patient oriented x3, gait normal and CN's II-XI intact bilaterally Cranial nerves: Yes Equal, round and reactive pupils present Cognition (Neuro): normal cognition Gait exam (Neuro): Normal gait present Motor exam (neuro): 5/5 motor strength present throughout Sensory Exam: No Sensory deficit (Neuro) Deep tendon reflexes (DTR's): Right patellar reflex intensity grade: 1+ and Left patellar reflex intensity grade: 1+ Extrem General: Yes normal to inspection, No edema and No calf tenderness Psych Appearance: grossly normal Affect: normal affect Attitude: cooperative Thought process: Normal thought process present Coding Level of Care Code Est Pt Level 3 (67853) Est Pt Prev Care 40-64y(92357) Diagnoses Normal physical examination, routine Z00.00 Breast cancer screening by mammogram Z12.31 Colon cancer screening Z12.11 Lumbar radiculopathy, chronic M54.16 Healthcare maintenance Z00.00 Additional Codes DAYANNA-7 Assessment Billing - DAYANNA-7 Assessment Tool: DAYANNA-7 Assessment 92875 ([id number]) PHQ-9 - 10794 - PHQ-9 Billing: Yes ([id number]) Assessment & Plan Assessment & Plan (1) Normal physical examination, routine: Code(s): Z00.00 - Encounter for general adult medical examination without abnormal findings Category: Medical Plan: No significant functional limitation noted. (2) Breast cancer screening by mammogram: Code(s): Z12.31 - Encounter for screening mammogram for malignant neoplasm of breast Category: Medical Plan: Mammogram ordered. (3) Colon cancer screening: Code(s): Z12.11 - Encounter for screening for malignant neoplasm of colon Category: Medical Plan: She has not had a colonoscopy. Ref[place] [facility] [place]. (4) Lumbar radiculopathy, chronic: Code(s): M54.16 - Radiculopathy, lumbar region Category: Medical Plan: Increase tizanidine dosage to 16 mg twice daily to address increased spasms and discomfort. Promote the use of warm compresses and stretching exercises to further assist in symptom relief. (5) Healthcare maintenance: Code(s): Z00.00 - Encounter for general adult medical examination without abnormal findings Category: Medical Plan: Schedule mammogram and colonoscopy screenings promptly. Complete overdue fasting blood work today, Plan I discussed with the patient the increase of her tizanidine dosage back to 16 mg twice daily to effectively manage her lower back spasms, explaining the importance of maintaining symptom control to support daily function and promote overall well-being. We comprehensively addressed her concerns regarding the misunderstanding of fasting requirements for blood work, agreeing on the necessity of timely completion today. The patient was advised to continue her psychiatric medication regimen while following up regularly with her psychiatrist to monitor mental health stability. Health maintenance topics such as the completion of overdue colonoscopy and mammogram screenings were revisited with an agreement to facilitate referrals and scheduling. The patient declined vaccinations for flu and tetanus at this time, and we reviewed the potential benefits of maintaining these preventative measures. All treatment options, risks, and benefits were thoroughly discussed, ensuring the patient consents to the proposed plans and recommendations. Orders: Orders MM screening mammo BI Today Z12.31 - Encounter for screening mammogram for malignant neoplasm of breast Referrals Gastroenterology Referral Z12.11 - Encounter for screening for malignant neoplasm of colon Medications: Changed From divalproex ER (Depakote ER) 1,000 mg (2 x 500 mg) PO BEDTIME 30 days 60 tabs 3RF To divalproex ER (Depakote ER) 1,250 mg PO BEDTIME From tizanidine 8 mg PO BEDTIME To tizanidine 8 mg (2 x 4 mg) PO BID 120 tabs 3RF 30 days Patient Instructions: - Proceed to complete fasting blood work including the Depakote level today. - Resume tizanidine at 16 mg twice daily, monitoring for any changes or side effects. - Follow up with a mammogram and colonoscopy scheduling promptly. - Continue with scheduled psychiatric appointments and consider reengaging with bi-weekly therapy sessions. - Consider slowly increasing physical activity as tolerated, introducing activities like walking to potentially aid in reducing symptom burden. - Reach out if experiencing any worsening of symptoms or concerns with medication adjustments.
[2024-08-06 10:10] VITALS: BP 120/80; PULSE 105; RESP 16; TEMP 36.7; O2SAT 96; BMI 31.7
== END 2024-08-06 10:53 | disposition home or self-care (01) ==
PROVIDERS: PCP Nurse Practitioner Family; Visit Provider Nurse Practitioner Family
DX: Z00.00 Encounter for general adult medical examination without abnormal findings (principal); M54.16 Radiculopathy, lumbar region; Z12.31 Encounter for screening mammogram for malignant neoplasm of breast; Z12.11 Encounter for screening for malignant neoplasm of colon

== ENCOUNTER → 2024-08-06 09:56 | Outpatient (BNVA) | payer MEDICARE, SELFPAY | PROVIDERS: PCP Nurse Practitioner Family; Visit Provider Nurse Practitioner Family ==

== ENCOUNTER 2024-08-06 10:46 | Outpatient (REF) | payer MEDICARE, SELFPAY ==
[2024-08-06 14:44] LABS: Cholesterol 195 mg/dL (<200); HDL Cholesterol 62 mg/dL (>40); LDL Cholesterol Calculated 105 mg/dL (<100); Triglycerides 141 mg/dL (<150)
[2024-08-06 14:47] LABS: Creatinine Urine 242.69 mg/dL; Microalbum/Creatinine Ratio Ur 2.8 ug/mg cr (<30)
== END 2024-08-06 10:47 | disposition home or self-care (01) ==
LOC: HO.WFDLDS 10:46
PROVIDERS: Visit Provider Nurse Practitioner Family
DX: Z00.00 Encounter for general adult medical examination without abnormal findings (principal); M54.16 Radiculopathy, lumbar region; Z79.899 Other long term (current) drug therapy
CPT/HCPCS: 36415; 80061; 82043; 82570; 84443; 96127; 99212; 99396

== ENCOUNTER 2025-01-27 18:00 | Inpatient (IN) | payer MEDICARE, SELFPAY ==
--- NOTE | ~2025-01-27 | CT_ITS ---
CLINICAL HISTORY: Stroke Protocol CT angiography head and neck with contrast. 3D Postprocessing. Comparison: CT/SR - CT HEAD FOR STROKE - 01/27/25 18:04 EDT Findings: Aortic arch and cervical great vessels are patent with no aneurysm, dissection, hemodynamically significant stenoses, or occlusion. Intracranial arteries are patent. No aneurysm, dissection, hemodynamically significant stenoses, or occlusion. No abnormal intracranial enhancement. Small cyst within the right lobe of the thyroid gland. Small right pleural effusion. No acute fracture. IMPRESSION: Patent head and neck CTA. This document has been electronically signed by: Kourtney Zimmerman MD on 01/27/2025 19:07:33
--- NOTE | ~2025-01-27 | CT_ITS ---
CLINICAL HISTORY: Stroke Protocol CT head without contrast Comparison: CT/TX/SR - CT HEAD/BRAIN WO IV CON - 12/23/23 13:00 EDT Findings: No intra-axial mass, midline shift, hydrocephalus, or acute hemorrhage. No significant atrophy-like change or white matter disease. There is no sinus or mastoid fluid. The orbits are unremarkable. No skull fracture. IMPRESSION: 1. No acute intracranial findings. This document has been electronically signed by: Kourtney Zimmerman MD on 01/27/2025 18:24:23
--- NOTE | 2025-01-27 18:02 | ED.GENADULT ---
HPI - General Adult General Chief complaint: Psychiatric Symptoms Stated complaint: acting weird/slow/shakey Time Seen by Provider: 01/27/25 18:15 Source: patient and EMS Limitations: other (AMS versus intoxication versus CVA) History of Present Illness ED Provider: Mini Galloway PA-C HPI narrative: 54-year-old female with a history of polysubstance abuse, in particular sedative and hypnotic abuse, cocaine abuse, alcohol use disorder, anxiety, depression, chronic pain syndromes, fibromyalgia, IBS, bipolar presents as a stroke alert. The patient arrives via EMS. Her friend is at bedside. The friend called for assistance to the patient's home after she received a disturbing text message from the patient today. The patient's message was not making any sense, she in turn called the patient, her language was garbled, she could not recite her name she did not know the date. History extremely limited from the patient she is not being forthcoming about details at this time. Related Data Home Medications ?Medication ?Instructions ?Recorded ?Confirmed clonazepam 2 mg tablet 2 mg PO BEDTIME 05/26/24 01/29/25 aripiprazole 20 mg tablet 20 mg PO BEDTIME 01/27/25 01/29/25 olanzapine 20 mg tablet 20 mg PO BEDTIME 01/27/25 01/29/25 zolpidem 10 mg tablet 10 mg PO BEDTIME PRN Insomnia 01/27/25 01/29/25 divalproex 125 mg capsule,delayed 125 mg PO BEDTIME 01/29/25 01/29/25 release sprinkle divalproex 500 mg tablet,extended 1,000 mg PO BEDTIME 01/29/25 01/29/25 release 24 hr olanzapine 5 mg tablet 5 mg PO BEDTIME 01/29/25 01/29/25 tizanidine 4 mg tablet 12 mg PO BID 01/29/25 01/29/25 Allergies Allergy/AdvReac Type Severity Reaction Status Date / Time duloxetine [From CYMBALTA] Allergy Unknown Hallucinati Verified 01/27/25 18:46 ons morphine [MORPHINE] Allergy Unknown HALLUCINATI Verified 01/27/25 18:46 ONS Phenylpiperazine AdvReac Severe hallucinati Verified 01/27/25 18:46 Antidepressant ons Tetracyclic Antidepressants AdvReac Severe hallucinati Verified 01/27/25 18:46 ons fentanyl [FENTANYL] AdvReac Unknown Hallucinati Verified 01/27/25 18:46 ons Review of Systems Review of Systems: Unable to obtain as the patient is not engaging in conversation so as to obtain detailed history Yes all other systems are reviewed and are negative [facility] Past Medical History Attestation statement: The following information was validated with the patient. 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 Paralysis Neck pain Mental status change resolved Medication side effects Lumbar radiculitis Low ferritin Low back pain Leukocytosis Gluteal pain Gastric stress ulcer Dysconjugate gaze Cough Gonsalves hemangioma Cervical spinal cord compression Cervical radiculitis Anal fissure Vitamin D deficiency Vaginal discharge Underweight Tubular adenoma Sleep disturbance Right cervical radiculopathy Rash Presbycusis Plantar wart Pharyngitis Paresthesia of right upper limb Panic attacks Muscle spasm Leg weakness Left rib fracture Irritable bowel syndrome Fibromyalgia Dysuria Contact dermatitis Chronic pain Chronic night sweats Chronic narcotic use Chronic diarrhea Anxiety Anemia Surgical History H/O lumbar discectomy Hx of colonoscopy H/O colectomy H/O laparoscopy H/O endoscopy S/P cervical discectomy Family History Family History Father AAA (abdominal aortic aneurysm) Mother TMJ (temporomandibular joint disorder) Social History Social History Household Members: Friend(s) Household Members Other:: Boyfriend Housing: Condominium Do you presently have visiting nurse or other home services: No Alcohol intake: unknown Patient Tobacco Use Status: Never used Tobacco Smoked in Last 30 Days: No e-Cigarette/Vaping Use: Never Used Second Hand Smoke Exposure: No Substance Use Type: Marijuana Advance Directives: Yes Advance Directives on File: Yes Advance Directives Date on File: 09/13/22 Do you have a plan to hurt others: No Plan Patient : No service: No Current occupational status: disabled Current occupational exposures/hazards: No Sexual orientation: Straight/Heterosexual Cognitive needs: No Hearing needs: No Vision needs: Yes Physical Exam ED Vital Signs: Vital Signs - 24 hr 01/31/25 20:42 02/01/25 01:53 Temperature 98.2 F 97.8 F Pulse Rate 79 82 Respiratory Rate 18 16 Blood Pressure 144/64 H 108/74 Pulse Oximetry 99 100 Oxygen Delivery Method Room Air Room Air BMI result Body Mass Index 28.8 Const Other: Away Orientation/consciousness: oriented to person and oriented to place Resp Effort & Inspection: normal respiratory effort Cardio Other: Normal peripheral perfusion Skin Other: Warm dry no rash Neuro Other: Walks with an antalgic gait, Romberg negative, strength is equal bilaterally both upper and lower extremities, following commands, intermittent expressive aphasia that seems purposeful General: oriented to person, oriented to place, tone normal, moves all extremities, no focal motor deficits and CN's II-XI intact bilaterally Psych Other: Flat affect, NIH Stroke Scale Internal: Initial- Upon Arrival Level of Consciousness: Alert Level of Consciousness Questions: Answers both questions correctly Level of Consciousness Commands: Performs both tasks correctly Best Gaze: Normal Visual: No visual loss Facial Palsy: Normal Motor Arm (Right): No drift Motor Arm (Left): No drift Motor Leg (Right): No drift Motor Leg (Left): No drift Limb Ataxia: Absent Sensory: Normal Best Language: Mild to moderate aphasia Dysarthia: Mild to moderate dysarthria Extinction and Inattention: No abnormality Score: 2 Course Course Course Narrative: This is a rapid medical exam performed by Mayte Ingram NP: Additional HPI, ROS, PE not included below will be deferred to primary provider. 54 yo female with PMHx of bipolar disorder, GERD, cocaine use disorder, fibromyalgia, anemia presents to the ED due to stroke-like symptoms. Patient was brought directly back to main ED, charge nurse aware. Friend reports patient was sending texts that did not make sense. Patient with garbled speech, ? left facial droop on arrival, no pronator drift. Reevaluation(s) Reevaluation #1: I was discussing with the patient that her workup is negative thus far in regard to having a stroke. She continues to have intermittent expressive aphasia with garbled speech. I have relayed to her that her urine toxicology screen was positive for numerous illicit substances. During our initial encounter, I did ask the patient if she uses illicit substances and /or drink alcohol, she denied. I expressed to the patient that it would be in her best interest to see the care team and to consider detox. The patient is getting up from the bed, asking to leave stating she wants to go home. She is able to put her clothes on, I removed her IVs. She is still clinically intoxicated, I told her she will not be allowed to leave until she was clinically sober. She still continues to try to walk out of her room down the hallway toward the door. She is redirectable. I am placing a care team consult, I am going to request section 12, the patient is clearly decompensated and is at risk to harm herself with her alcohol and drug abuse. Time: 21:59 Reevaluation #2: Patient now section 12 in his a bed search Reevaluation #3: Time: 03:40 Date: 01/28/25 Provider: GILMA Mason Patient in physician observation for psychiatric evaluation.? No acute events reported overnight. No current complaints. VS stable.? Patient is in bed search status/pending CARE team evaluation. Will continue to monitor. Additional Reevaluation(s): Jan 28 2025 09:20 clinically stable no event reported overnight bed search continue 01/29/25 08:29 LUISITO Ingram Patient remains on observation pending psych eval. Vital signs stable. Time: 08:27 Date: 01/30/25 Provider: Chapito Champagne MD Patient in physician observation for psychiatric evaluation. Patient has been in the emergency department for 62 hours.? Patient complained of anxiety and agitation this morning therefore she was given clonazepam 2 mg orally. VS stable.? Patient was evaluated yesterday by Dr. Maya and the patient does have capacity to make decisions. Care team note states that the patient continues to meet criteria for IPLOC secondary to unintentional harm to self and other secondary to altered mental status. Also the patient's outpatient healthcare provider was concerned that the patient could not be safely discharged at this time. Therefore the patient will remain on a Section 12 and care team will continue bed search. Will continue to monitor. Consultations Consultation #1: Time: 06:57 Date: 01/31/25 Provider: Tunde Regan MD Patient in physician observation for psychiatric evaluation.? No acute events reported overnight. No current complaints. VS stable.? Patient is in bed search status/pending CARE team evaluation. Will continue to monitor. Time: 11:43 Date: 02/01/25 Provider: Chapito Champagne MD Physician observation ended at 11:43. the patient was re-evaluated yesterday by the care team who felt that the patient continued to present with elevated risk of self or unintentional harm and was not safe for discharge. No reported incidents on the patient by the overnight staff. Patient was accepted for admission to our inpatient to psychiatry service. The accepting psychiatrist is Dr. Omar Jean. Medications Administered Generic Name Dose Route Start Last Admin Trade Name Freq PRN Reason Stop Dose Admin Aripiprazole 20 mg 01/28/25 21:00 01/31/25 21:44 Aripiprazole 20 Mg Tablet PO 20 mg BEDTIME PEDRITO Administration Clonazepam 2 mg 01/28/25 21:00 01/31/25 21:11 Clonazepam 1 Mg Tablet PO 2 mg BEDTIME PEDRITO Administration Olanzapine 20 mg 01/28/25 21:00 01/31/25 21:11 Olanzapine 10 Mg Tablet PO 20 mg BEDTIME PEDRITO Administration Tizanidine HCl 8 mg 01/28/25 09:00 02/01/25 09:13 Tizanidine Hcl 4 Mg Tablet PO 8 mg BID PEDRITO Administration Zolpidem Tartrate 10 mg 01/28/25 03:14 01/31/25 21:11 Zolpidem Tartrate 5 Mg Tablet PO 10 mg BEDTIME PRN Administration Insomnia Discontinued Medications Generic Name Dose Route Start Last Admin Trade Name Freq PRN Reason Stop Dose Admin Acetaminophen 975 mg 01/31/25 16:51 01/31/25 16:56 Acetaminophen 325 Mg Tablet PO 01/31/25 16:52 975 mg ONCE STA Administration Clonazepam 2 mg 01/29/25 19:29 01/29/25 20:03 Clonazepam 1 Mg Tablet PO 01/29/25 19:30 2 mg ONCE ONE Administration Clonazepam 2 mg 01/30/25 08:24 01/30/25 08:28 Clonazepam 1 Mg Tablet PO 01/30/25 08:25 2 mg ONCE ONE Administration Clonazepam 1 mg 02/01/25 01:54 02/01/25 01:59 Clonazepam 1 Mg Tablet PO 02/01/25 01:55 1 mg ONCE ONE Administration Iohexol 100 ml 01/27/25 18:21 01/27/25 18:21 Iohexol 350 Mg/Ml 100 Ml Infus..Btl IV 01/27/25 18:22 70 ml ONCE ONE Administration Olanzapine 20 mg 01/29/25 19:29 01/29/25 19:54 Olanzapine 10 Mg Tablet PO 01/29/25 19:30 20 mg ONCE ONE Administration Medical Decision Making Medical Decision Making MDM Narrative: 54-year-old female with a history of polysubstance abuse, in particular sedative and hypnotic abuse, cocaine abuse, alcohol use disorder, anxiety, depression, chronic pain syndromes, fibromyalgia, IBS, bipolar presents as a stroke alert. The patient arrives via EMS. Her friend is at bedside. The friend called for assistance to the patient's home after she received a disturbing text message from the patient today. The patient's message was not making any sense, she in turn called the patient, her language was garbled, she could not recite her name she did not know the date. History extremely limited from the patient she is not being forthcoming about details at this time. Problem: Psychiatric illness, polysubstance abuse , chronic pain History: Per patient which is limited, per her friend and EMS I have considered the following differential diagnoses: CVA, decompensated psychiatric illness, drug/alcohol intoxication Plan: Objectively, the patient is intermittently aphasic, exhibiting expressive aphasia at times. This seems purposeful, she has clear speech when answering some questions, however then her speech is garbled. She was able to verbalize ?I need Dilaudid, I have cauda equina?. When asked simple questions, she developed garbled speech/expressive aphasia. She was activated as a stroke alert, she is at CT at this time. I am speaking with her friend, she states that the patient has sent her an alarming photo via text; she was covered in blood over her face and hair. This occurred a week ago, the patient's friend has been trying to get in contact with her, there has been no response up until today. Last known well time unknown. The patient's friend is relaying that the patient has alcohol use disorder in addition to her polysubstance abuse. She also states that the patient abuses her prescribed medications. In addition to screening labs I will be adding on a drug screen and serum ethanol. I have independently reviewed the following tests: Labs: No leukocytosis, not anemic, thrombocytosis of 528 which is somewhat chronic, no electrolyte abnormality, ethanol negative, drug tox positive for amphetamine, cocaine, benzodiazepine and marijuana EKG: Normal sinus rhythm, rate of 93, no ischemic changes no ectopy QTC 427 CT brain:MPRESSION: 1. No acute intracranial findings. CT angio neck and head:IMPRESSION: Patent head and neck CTA. 01/28/252110 Bambi Oliva MD I was informed by the care team that they assessed the patient. Overall, the care team who assessed the patient, does not feel comfortable discharging the patient. Seems that the patient is not engaging well. Patient has a bizarre affect. Patient does answer questions but does not engage in a normal fluent conversation. Also, patient had a hard time opening a pack of crackers, it took her 10 minutes to figure out how to do it. patient remains on a Section 12. Per care team request, psychiatric consult pending, reassessment in the morning pending. Lab Data 01/27/25 18:24 01/27/25 18:24 Labs: Lab Results 01/27/25 01/27/25 01/27/25 Range/Units 18:09 18:24 19:11 WBC 9.5 (4.8-10.8) X10*3/uL RBC 4.97 (4.20-5.50) X10*6/uL Hgb 14.7 (12.0-16.0) g/dl Hct 44.0 (37.0-47.0) % MCV 88.5 (80.0-98.0) fL MCH 29.6 (27.0-33.0) pg MCHC 33.4 (31.0-35.0) g/dl RDW 13.7 (11.0-16.0) % Plt Count 528 H (160-400) X10*3/uL MPV 9.5 (9.4-12.3) fL Immature Gran % (Auto) 0.4 (0.0-0.4) % Neut % (Auto) 74.0 H (45-73) % Lymph % (Auto) 18.7 L (20-40) % [place] % (Auto) 5.8 (2-11) % Eos % (Auto) 0.1 (0-4) % Baso % (Auto) 1.0 (0-2) % Lymph # (Auto) 1.8 (1.2-4.9) X10*3/uL [place] # (Auto) 0.6 (0.1-1.2) X10*3/uL Eos # (Auto) 0.0 (0.0-0.4) X10*3/uL Baso # (Auto) 0.1 (0.0-0.2) X10*3/uL Abs Immat Gran (auto) 0.04 H (0.00-0.03) X10*3/uL Absolute Neuts (auto) 7.0 (2.0-8.3) x10*3/uL Absolute Nucleated RBC 0.000 (0.0-0.012) X10*3/uL Nucleated RBC % (auto) 0.0 (0.0-0.2) /100WBC PT (Fingerstick) 12.5 (11.1-13.5) sec PT 11.5 (10.9-12.4) SEC INR (Fingerstick) 1.0 (0.9-1.1) INR 1.0 (0.9-1.1) APTT 33.1 D (26.0-36.8) SEC Sodium 144 (135-145) mmol/L Potassium 4.1 (3.3-5.1) mmol/L Chloride 110 H (96-108) mmol/L Carbon Dioxide 20 L (22-29) mmol/L Anion Gap 18 (12-20) BUN 14 (9-16) mg/dL Creatinine 1.00 (0.5-1.4) mg/dL Estim Creat Clear Calc 68.2 Estimated GFR 58 POC Glucose 151 H (60-115) mg/dL Random Glucose 109 (60-115) mg/dL Calcium 9.4 D (8.4-10.2) mg/dL Magnesium 2.0 (1.6-2.6) mg/dL Total Bilirubin 0.4 (0.0-1.0) mg/dL Direct Bilirubin 0.1 (0.0-0.5) mg/dL AST 29 (5-31) U/L ALT 20 (0-31) U/L Alkaline Phosphatase 84 (39-117) U/L Troponin I High Sens 7.2 D (<3.5-17.0) ng/L Total Protein 7.5 (6.5-8.0) g/dL Albumin 4.6 (3.5-5.0) g/dL Triglycerides 89 (<150) mg/dL Cholesterol 183 (<200) mg/dL LDL Cholesterol, Calc 114 H (<100) mg/dL HDL Cholesterol 52 (>40) mg/dL Urine Color Dark Yellow Urine Appearance Clear Urine pH 5.5 (5.0-9.0) Ur Specific Mclean >= 1.030 H (1.005-1.025) Urine Protein 30 (1+) H (Neg-Trace) mg/dL Urine Glucose (UA) Negative (Negative) mg/dL Urine Ketones 40 (Negative) mg/dL Urine Blood Negative (Negative) Urine Nitrite Negative (Negative) Ur Leukocyte Esterase Negative (Negative) Urine RBC 0-2 (0-2) /HPF Urine WBC 0-5 (0-5) /HPF Ur Squamous Epith Cells 3-5 (0-2) /HPF Urine Bacteria None Seen (None Seen) Hyaline Casts 3-5 (0-2) /LPF Urine Yeast Present Urine Opiates Screen Not Detected (Not Detect) Ur Buprenorphine Scrn Not Detected (Not Detect) ng/mL Ur Oxycodone Screen Not Detected (Not Detect) ng/mL Urine Methadone Screen Not Detected (Not Detect) ng/mL Urine Fentanyl Screen Not Detected (Not Detect) Ur Barbiturates Screen Not Detected (Not Detect) Ur Phencyclidine Scrn Not Detected (Not Detect) Ur Amphetamines Screen POSITIVE H (Not Detect) U Benzodiazepines Scrn POSITIVE H (Not Detect) Urine Cocaine Screen POSITIVE H (Not Detect) U Marijuana (THC) Screen POSITIVE H (Not Detect) Ethyl Alcohol < 10 mg/dL 01/27/25 Range/Units 22:24 WBC (4.8-10.8) X10*3/uL RBC (4.20-5.50) X10*6/uL Hgb (12.0-16.0) g/dl Hct (37.0-47.0) % MCV (80.0-98.0) fL MCH (27.0-33.0) pg MCHC (31.0-35.0) g/dl RDW (11.0-16.0) % Plt Count (160-400) X10*3/uL MPV (9.4-12.3) fL Immature Gran % (Auto) (0.0-0.4) % Neut % (Auto) (45-73) % Lymph % (Auto) (20-40) % [place] % (Auto) (2-11) % Eos % (Auto) (0-4) % Baso % (Auto) (0-2) % Lymph # (Auto) (1.2-4.9) X10*3/uL [place] # (Auto) (0.1-1.2) X10*3/uL Eos # (Auto) (0.0-0.4) X10*3/uL Baso # (Auto) (0.0-0.2) X10*3/uL Abs Immat Gran (auto) (0.00-0.03) X10*3/uL Absolute Neuts (auto) (2.0-8.3) x10*3/uL Absolute Nucleated RBC (0.0-0.012) X10*3/uL Nucleated RBC % (auto) (0.0-0.2) /100WBC PT (Fingerstick) (11.1-13.5) sec PT (10.9-12.4) SEC INR (Fingerstick) (0.9-1.1) INR (0.9-1.1) APTT (26.0-36.8) SEC Sodium (135-145) mmol/L Potassium (3.3-5.1) mmol/L Chloride (96-108) mmol/L Carbon Dioxide (22-29) mmol/L Anion Gap (12-20) BUN (9-16) mg/dL Creatinine (0.5-1.4) mg/dL Estim Creat Clear Calc Estimated GFR POC Glucose 89 (60-115) mg/dL Random Glucose (60-115) mg/dL Calcium (8.4-10.2) mg/dL Magnesium (1.6-2.6) mg/dL Total Bilirubin (0.0-1.0) mg/dL Direct Bilirubin (0.0-0.5) mg/dL AST (5-31) U/L ALT (0-31) U/L Alkaline Phosphatase (39-117) U/L Troponin I High Sens (<3.5-17.0) ng/L Total Protein (6.5-8.0) g/dL Albumin (3.5-5.0) g/dL Triglycerides (<150) mg/dL Cholesterol (<200) mg/dL LDL Cholesterol, Calc (<100) mg/dL HDL Cholesterol (>40) mg/dL Urine Color Urine Appearance Urine pH (5.0-9.0) Ur Specific Mclean (1.005-1.025) Urine Protein (Neg-Trace) mg/dL Urine Glucose (UA) (Negative) mg/dL Urine Ketones (Negative) mg/dL Urine Blood (Negative) Urine Nitrite (Negative) Ur Leukocyte Esterase (Negative) Urine RBC (0-2) /HPF Urine WBC (0-5) /HPF Ur Squamous Epith Cells (0-2) /HPF Urine Bacteria (None Seen) Hyaline Casts (0-2) /LPF Urine Yeast Urine Opiates Screen (Not Detect) Ur Buprenorphine Scrn (Not Detect) ng/mL Ur Oxycodone Screen (Not Detect) ng/mL Urine Methadone Screen (Not Detect) ng/mL Urine Fentanyl Screen (Not Detect) Ur Barbiturates Screen (Not Detect) Ur Phencyclidine Scrn (Not Detect) Ur Amphetamines Screen (Not Detect) U Benzodiazepines Scrn (Not Detect) Urine Cocaine Screen (Not Detect) U Marijuana (THC) Screen (Not Detect) Ethyl Alcohol mg/dL Discharge Plan Discharge Clinical Impression: Polysubstance abuse Patient Disposition: Admitted As Inpatient Interventions: [place]-Suicide Risk Severity Scale Last Done: 01/31/25 20:00 Discharge Date/Time: 02/01/25 13:12
--- NOTE | 2025-01-27 18:05 | ECG_ITS ---
Test Reason : STROKE Blood Pressure : */* mmHG Vent. Rate : 93 BPM Atrial Rate : 93 BPM P-R Int : 156 ms QRS Dur : 64 ms QT Int : 344 ms P-R-T Axes : 63 17 45 degrees QTcB Int : 427 ms Normal sinus rhythm Low voltage QRS Cannot rule out Anterior infarct , age undetermined Abnormal ECG When compared with ECG of 23-Dec-2023 13:41, No significant change was found Referred By: Charo Ingram Electronically Signed By: PATSY KEYS MD
[2025-01-27] MEDS: iohexoL 350 MG/ML 100 ML INFUS..BTL IV (18:21)
[2025-01-27 18:41] VITALS: BP 135/80; PULSE 98; RESP 15; TEMP 36.8; BMI 28.8
[2025-01-27 18:43] LABS: MANUAL DIFF FLAG NO
[2025-01-27 18:48] LABS: Basophils Absolute Auto 0.1 X10*3/uL (0.0-0.2); Eosinophils Percent Auto 0.1 % (0-4); Hemoglobin 14.7 g/dl (12.0-16.0); Imm Gran Abs Auto 0.04 X10*3/uL (0.00-0.03); Imm Gran Pct Auto 0.4 % (0.0-0.4); Lymphocytes Absolute Auto 1.8 X10*3/uL (1.2-4.9); Lymphocytes Percent Auto 18.7 % (20-40); Mean Corpuscular HGB Conc 33.4 g/dl (31.0-35.0); Mean Corpuscular Hemoglobin 29.6 pg (27.0-33.0); Mean Corpuscular Volume 88.5 fL (80.0-98.0); Mean Platelet Volume 9.5 fL (9.4-12.3); Monocytes Absolute Auto 0.6 X10*3/uL (0.1-1.2); Monocytes Percent Auto 5.8 % (2-11); Platelet Count 528 X10*3/uL (160-400); Red Blood Count 4.97 X10*6/uL (4.20-5.50); Red Cell Distribution Width 13.7 % (11.0-16.0); White Blood Count 9.5 X10*3/uL (4.8-10.8)
[2025-01-27 18:54] LABS: Prothrombin Time 11.5 SEC (10.9-12.4)
[2025-01-27 18:57] LABS: Partial Thromboplastin Time 33.1 SEC (26.0-36.8)
[2025-01-27 19:07] LABS: Alanine Aminotransferase 20 U/L (0-31); Albumin Level 4.6 g/dL (3.5-5.0); Alkaline Phosphatase 84 U/L (39-117); Aspartate Amino Transferase 29 U/L (5-31); Bilirubin Direct 0.1 mg/dL (0.0-0.5); Bilirubin Total 0.4 mg/dL (0.0-1.0); Ethanol < 10 mg/dL; Total Protein 7.5 g/dL (6.5-8.0)
[2025-01-27 19:11] LABS: Troponin-I High Sensitivity 7.2 ng/L (<3.5-17.0)
[2025-01-27 19:20] LABS: Anion Gap 18 (12-20); Blood Urea Nitrogen 14 mg/dL (9-16); Calcium 9.4 mg/dL (8.4-10.2); Carbon Dioxide 20 mmol/L (22-29); Chloride 110 mmol/L (96-108); Cholesterol 183 mg/dL (<200); Creatinine Clr Calc Pharmacy 68.2; Estimated Glomerular Filt Rate 58; Glucose Random 109 mg/dL (60-115); HDL Cholesterol 52 mg/dL (>40); LDL Cholesterol Calculated 114 mg/dL (<100); Potassium 4.1 mmol/L (3.3-5.1); Sodium 144 mmol/L (135-145); Triglycerides 89 mg/dL (<150)
[2025-01-27 19:23] LABS: Appearance Urine Clear; Color Urine Dark Yellow; Glucose Urine UA Negative (Negative); Leukocyte Esterase Urine Negative (Negative); Nitrite Urine Negative (Negative); PH 5.5 (5.0-9.0); Specific Gravity - Urine >= 1.030 (1.005-1.025); UMIC TRIGGER UACC YES; Urine Blood Negative (Negative); Urine Ketones 40 mg/dL (Negative); Urine Protein 30 (1+) mg/dL (Neg-Trace)
[2025-01-27 19:35] LABS: Amphetamine Screen Urine POSITIVE (Not Detect); Barbiturates, Urine Not Detected (Not Detect); Benzodiazepines Screen Urine POSITIVE (Not Detect); Buprenorphine Scr Not Detected (Not Detect); Cannabinoid Screen Urine POSITIVE (Not Detect); Cocaine Screen Urine POSITIVE (Not Detect); Fentanyl, urine Not Detected (Not Detect); Methadone Screen, Urine Not Detected (Not Detect); Opiate Screen Urine Not Detected (Not Detect); Oxycodone Screen Urine Not Detected (Not Detect); Phencyclidine Screen Urine Not Detected (Not Detect)
[2025-01-27 19:39] LABS: Stroke Lab Use COMPLETE
[2025-01-27 19:41] LABS: Bacteria Urine None Seen (None Seen); RBC Urine 0-2 /HPF (0-2); WBC Urine 0-5 /HPF (0-5)
[2025-01-27 21:33] VITALS: BP 158/73; PULSE 101; RESP 14; TEMP 36.9; O2SAT 100
--- NOTE | 2025-01-27 22:19 | PC.NURSE ---
verbal nurse to nurse report given to [place] in the pod
[2025-01-27 22:27] LABS: Glucose, Whole Blood 89 mg/dL (60-115)
--- NOTE | 2025-01-27 22:29 | PC.NURSE ---
pt to behavioral pod via network security analyst
--- NOTE | 2025-01-27 22:43 | PC.NURSE ---
pt escorted from main ed to due to bizarre affect ad behavior. PT worked up for stroke- all finding negative. PT's speech continues to be slurred and delayed. Denies SI/HI/AH/VH, and reports medication compliance however pt is not able to recall/provide home medication list. Pt states her pharmacy is [facility] in [place]. Care team at bedside at this time. plan of care ongoing.
[2025-01-28] MEDS: clonazePAM 1 MG TABLET 2 MG PO ×2 (03:34→20:17)
[2025-01-28] MEDS: OLANZapine 10 MG TABLET 20 MG PO ×2 (03:34→20:18)
[2025-01-28 03:39] VITALS: BP 189/89; PULSE 101; RESP 18; TEMP 37.1; O2SAT 97
[2025-01-28 05:15] VITALS: BP 139/99; PULSE 100
[2025-01-28 05:16] VITALS: BP 139/99; PULSE 101; RESP 18; TEMP 37.1; O2SAT 98
--- NOTE | 2025-01-28 06:25 | PC.NURSE ---
Patient slept through the night, no distress observed/reported, 15 minutes safety check, no behavior and safety concerns, meds and meals compliant, CIWA at 0400 was 7, disposition per care team is section 12 inpatient bed search, will continue to monitor
--- NOTE | 2025-01-28 07:36 | PC.NURSE ---
Assumed care of patient at 0645, patient appears to be in no apparent distress this am, calm and cooperative, offering no complaints to this RN. Continue plan of care for IPLOC
[2025-01-28] MEDS: TiZANidine HCL 4 MG TABLET 8 MG PO ×2 (08:05→20:17)
--- NOTE | 2025-01-28 08:51 | MHC.CARE ---
Karey, Pt's HCP called this morning returning a phone call from the overnight CARE team clinician. She was aware Pt was in the ED but unaware of the exact circumstances that brought Pt here. Karey was updated on presentation and the current disposition. Karey reported Pt has good and bad days however is consistently using cocaine however has used everything under the sun. She states Pt over takes her prescribed medication and will present as lethargic and with slurred speech at times. Karey stated she believes Pt is unable to care for herself in the community at this time and is not safe at home.
[2025-01-28 09:14] LABS: Glucose, Whole Blood 151 mg/dL (60-115)
[2025-01-28 13:24] VITALS: BP 100/61; PULSE 67; RESP 18; TEMP 36.1; O2SAT 98
[2025-01-28 19:27] VITALS: BP 139/86; PULSE 86; RESP 14; TEMP 36.8; O2SAT 98
--- NOTE | 2025-01-28 19:32 | PC.NURSE ---
patient ambulates from room to restroom ad gisele appears in no distress, was informed by prior nurse that friend berhane would visit tomorrow
[2025-01-28] MEDS: ARIPiprazole 20 MG TABLET PO (20:17)
--- NOTE | 2025-01-29 06:03 | PC.NURSE ---
patient appearsred to sleep uninterruptedly repositioning self, appears in no distress
[2025-01-29] MEDS: TiZANidine HCL 4 MG TABLET 8 MG PO ×2 (08:04→19:55)
--- NOTE | 2025-01-29 09:09 | PC.NURSE ---
This RN assumed care of patient at 09:00am today. No acute distress noted at this time. Care ongoing. Section 12 bedsearch continues.
[2025-01-29 09:38] LABS: Prothrombin Time Whole Blood 12.5 sec (11.1-13.5)
--- NOTE | 2025-01-29 11:30 | P.CNPS_ITS ---
History of Present Illness Date of Service: 01/29/25 Chief Complaint: acting weird/slow/shakey Reason for Consult: assess for capacity Requesting physician: Charo Ingram Discussed with referring provider: Yes Sources of Information: patient interviewed, chart reviewed and crisis/core team assessment reviewed HPI Narrative: Patient is a 54-year-old female with history of depression, carries a diagnosis of bipolar disorder (but denies manic episodes), substance abuse history who presented to the ED unable to talk. This is now resolved. Head Of Music asked to assess for capacity. Patient said she woke up and was unable to speak; her friend got a to go to the emergency room. On arrival, patient was mostly unable to speak or was speaking in a garbled way; patient was worked up and stroke ruled out. It seems that current leading etiology was substance induced. To mortgage loan underwriter, patient denies any alcohol use, opiates or over using her home medications. She says she did use cocaine recently but denies frequent use. She reiterates she just woke up this way and is glad she does not have a stroke. Patient is alert and fully oriented self, place, time, date, situation... She is organized in speech and behavior and thought processes is linear and logical. Says she has moderate depression that comes and goes, denies any SI or HI or AVH or any history of manic symptoms at all; she says she has refractory insomnia that is why she is on Zyprexa, Abilify, Depakote and zolpidem. Patient says that she had not been sleeping for about a week (denying any associated manic symptoms) but again denies over-taking any of her sedating medications. Patient would like to return home; does not want a program for substance abuse or inpatient admission. Discussed case with ED provider Charo who reiterates workup for stroke unremarkable, does not think it was a TIA and leading etiology as substance abuse Past Psychiatric History: -past meds: seroquel, haldol, wellbutrin, klonopin, ambien, celexa, -pt has had 5 previous inpatient stays at [facility] no h/o SA, SIB. OP: currently reconnecting with [facility] as she no longer sees Kylie Talley due to several no show appointment. [facility] Medical History (Updated 01/29/25 @ 12:15 by Julian Maya MD) Bipolar disorder Bipolar disorder Failed back surgical syndrome Lumbar radiculopathy, chronic Yeast vaginitis Viral gastroenteritis Vaginitis Use of opiates for therapeutic purposes Tachycardia Social anxiety disorder Right elbow pain Pyogenic granuloma Phlebitis 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 Paralysis Neck pain Mental status change resolved Medication side effects Lumbar radiculitis Low ferritin Low back pain Leukocytosis Gluteal pain Gastric stress ulcer Dysconjugate gaze Cough Gonsalves hemangioma Cervical spinal cord compression Cervical radiculitis Anal fissure Vitamin D deficiency Vaginal discharge Underweight Tubular adenoma Sleep disturbance Right cervical radiculopathy Rash Presbycusis Plantar wart Pharyngitis Paresthesia of right upper limb Panic attacks Muscle spasm Leg weakness Left rib fracture Irritable bowel syndrome Fibromyalgia Dysuria Contact dermatitis Chronic pain Chronic night sweats Chronic narcotic use Chronic diarrhea Anxiety Anemia Surgical History H/O lumbar discectomy Hx of colonoscopy H/O colectomy H/O laparoscopy H/O endoscopy S/P cervical discectomy Family History: denies Social History: Raised by both parents, along with 4 siblings. has 3 older brothers and 1 younger. Met developmental milestones as expected, graduated high school, bachelor's degree. 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 -no longer lives with her now former boyfriend, bryn, as the relationship has ended since last discharge 09/12/22. son lives with her brother. she reports she is about to receive a court order allowing only for supervised visits with her son. Trauma History: none divulged Diagnostics Vital Signs (24Hr): Vital Signs - 24 hr 01/28/25 13:24 01/28/25 19:27 Temperature 96.9 F 98.2 F Pulse Rate 67 86 Respiratory Rate 18 14 Blood Pressure 100/61 139/86 Pulse Oximetry 98 98 Oxygen Delivery Method Room Air Room Air BMI result Body Mass Index 28.8 Labs 01/27/25 18:24 01/27/25 18:24 Labs: Laboratory Results - last 48 hr 01/27/25 01/27/25 01/27/25 18:09 18:24 19:11 WBC 9.5 RBC 4.97 Hgb 14.7 Hct 44.0 MCV 88.5 MCH 29.6 MCHC 33.4 RDW 13.7 Plt Count 528 H MPV 9.5 Immature Gran % (Auto) 0.4 Neut % (Auto) 74.0 H Lymph % (Auto) 18.7 L [place] % (Auto) 5.8 Eos % (Auto) 0.1 Baso % (Auto) 1.0 Lymph # (Auto) 1.8 [place] # (Auto) 0.6 Eos # (Auto) 0.0 Baso # (Auto) 0.1 Abs Immat Gran (auto) 0.04 H Absolute Neuts (auto) 7.0 Absolute Nucleated RBC 0.000 Nucleated RBC % (auto) 0.0 PT (Fingerstick) 12.5 PT 11.5 INR (Fingerstick) 1.0 INR 1.0 APTT 33.1 D Sodium 144 Potassium 4.1 Chloride 110 H Carbon Dioxide 20 L Anion Gap 18 BUN 14 Creatinine 1.00 Estim Creat Clear Calc 68.2 Estimated GFR 58 POC Glucose 151 H Random Glucose 109 Calcium 9.4 D Magnesium 2.0 Total Bilirubin 0.4 Direct Bilirubin 0.1 AST 29 ALT 20 Alkaline Phosphatase 84 Troponin I High Sens 7.2 D Total Protein 7.5 Albumin 4.6 Triglycerides 89 Cholesterol 183 LDL Cholesterol, Calc 114 H HDL Cholesterol 52 Urine Color Dark Yellow Urine Appearance Clear Urine pH 5.5 Ur Specific [place] >= 1.030 H Urine Protein 30 (1+) H Urine Glucose (UA) Negative Urine Ketones 40 Urine Blood Negative Urine Nitrite Negative Ur Leukocyte Esterase Negative Urine RBC 0-2 Urine WBC 0-5 Ur Squamous Epith Cells 3-5 Urine Bacteria None Seen Hyaline Casts 3-5 Urine Yeast Present Urine Opiates Screen Not Detected Ur Buprenorphine Scrn Not Detected Ur Oxycodone Screen Not Detected Urine Methadone Screen Not Detected Urine Fentanyl Screen Not Detected Ur Barbiturates Screen Not Detected Ur Phencyclidine Scrn Not Detected Ur Amphetamines Screen POSITIVE H U Benzodiazepines Scrn POSITIVE H Urine Cocaine Screen POSITIVE H U Marijuana (THC) Screen POSITIVE H Ethyl Alcohol < 10 01/27/25 22:24 WBC RBC Hgb Hct MCV MCH MCHC RDW Plt Count MPV Immature Gran % (Auto) Neut % (Auto) Lymph % (Auto) [place] % (Auto) Eos % (Auto) Baso % (Auto) Lymph # (Auto) [place] # (Auto) Eos # (Auto) Baso # (Auto) Abs Immat Gran (auto) Absolute Neuts (auto) Absolute Nucleated RBC Nucleated RBC % (auto) PT (Fingerstick) PT INR (Fingerstick) INR APTT Sodium Potassium Chloride Carbon Dioxide Anion Gap BUN Creatinine Estim Creat Clear Calc Estimated GFR POC Glucose 89 Random Glucose Calcium Magnesium Total Bilirubin Direct Bilirubin AST ALT Alkaline Phosphatase Troponin I High Sens Total Protein Albumin Triglycerides Cholesterol LDL Cholesterol, Calc HDL Cholesterol Urine Color Urine Appearance Urine pH Ur Specific [place] Urine Protein Urine Glucose (UA) Urine Ketones Urine Blood Urine Nitrite Ur Leukocyte Esterase Urine RBC Urine WBC Ur Squamous Epith Cells Urine Bacteria Hyaline Casts Urine Yeast Urine Opiates Screen Ur Buprenorphine Scrn Ur Oxycodone Screen Urine Methadone Screen Urine Fentanyl Screen Ur Barbiturates Screen Ur Phencyclidine Scrn Ur Amphetamines Screen U Benzodiazepines Scrn Urine Cocaine Screen U Marijuana (THC) Screen Ethyl Alcohol Mental Status Exam Mental Status Exam Narrative: Pt is lying in bed and fatigued but alert and oriented; behavior is cooperative, friendly and calm; patient is not in distress; dressed in hospital attire with unkempt hair; mood is ok and affect congruent; eye contact appropriate; Speech is a little soft, a little slow but fully understandable and normal prosody; thought process is organized, logical and goal directed; Thought content is on recent episode and treatment; otherwise pertinent to relevant topics and without any delusional content, paranoid ideations or grandiosity; denies any SI/HI. Denies AVH and there is no evidence of perceptual disturbance. Patients insight and judgment mildly impaired? But adequate Medications Medications Current Medications Aripiprazole (Aripiprazole 20 Mg Tablet) 20 mg PO BEDTIME [facility] Last Admin: 01/28/25 20:17 Dose: 20 mg Clonazepam (Clonazepam 1 Mg Tablet) 2 mg PO BEDTIME [facility] Last Admin: 01/28/25 20:17 Dose: 2 mg Olanzapine (Olanzapine 10 Mg Tablet) 20 mg PO BEDTIME [facility] Last Admin: 01/28/25 20:18 Dose: 20 mg Tizanidine HCl (Tizanidine Hcl 4 Mg Tablet) 8 mg PO BID [facility] Last Admin: 01/29/25 08:04 Dose: 8 mg Zolpidem Tartrate (Zolpidem Tartrate 5 Mg Tablet) 10 mg PO BEDTIME PRN PRN Reason: Insomnia Allergies Allergies Allergy/AdvReac Type Severity Reaction Status Date / Time duloxetine [From CYMBALTA] Allergy Unknown Hallucinati Verified 01/27/25 18:46 ons morphine [MORPHINE] Allergy Unknown HALLUCINATI Verified 01/27/25 18:46 ONS Phenylpiperazine AdvReac Severe hallucinati Verified 01/27/25 18:46 Antidepressant ons Tetracyclic Antidepressants AdvReac Severe hallucinati Verified 01/27/25 18:46 ons fentanyl [FENTANYL] AdvReac Unknown Hallucinati Verified 01/27/25 18:46 ons Assessment & Plan Assessment & Plan (1) Depression: Status: Acute Code(s): F32.A - Depression, unspecified (2) Cocaine use disorder: Status: Acute Code(s): F14.10 - Cocaine abuse, uncomplicated (3) Dysarthria: Status: Acute Code(s): R47.1 - Dysarthria and anarthria Plan Patient is a 54-year-old female with history of depression, carries a diagnosis of bipolar disorder (but denies manic episodes), substance abuse history who presented to the ED unable to talk. This is now resolved. Head Of Music asked to assess for capacity. Patient said she woke up and was unable to speak; her friend got a to go to the emergency room. On arrival, patient was mostly unable to speak or was speaking in a garbled way; patient was worked up and stroke ruled out. It seems that current leading etiology was substance induced. To mortgage loan underwriter, patient denies any alcohol use, opiates or over using her home medications. She says she did use cocaine recently but denies frequent use. She reiterates she just woke up this way and is glad she does not have a stroke. Patient is alert and fully oriented self, place, time, date, situation... She is organized in speech and behavior and thought processes is linear and logical. Says she has moderate depression that comes and goes, denies any SI or HI or AVH or any history of manic symptoms at all; she says she has refractory insomnia that is why she is on Zyprexa, Abilify, Depakote and zolpidem. Patient says that she had not been sleeping for about a week (denying any associated manic symptoms) but again denies over-taking any of her sedating medications. Patient would like to return home; does not want a program for substance abuse or inpatient admission. -Discussed case with ED provider Charo who reiterates workup for stroke unremarkable, does not think it was a TIA and leading etiology as substance abuse Impression: At this time patient has full capacity Patient presented with dysarthria, having woken up and unable to speak. At this time, organic etiologies ruled out. Seems most likely cause was over taking sedating meds after a week of insomnia however patient fully denies this. Denies any SI at all. Reviewed chart and in the past she was admitted after being disorganized at an outpatient clinic but on arrival had no memory of such. At any rate whatever happened seems to be resolved and patient is fully alert and oriented and with organized in speech and behavior and denying psychiatric symptoms other than some on and off moderate depression and insomnia. Patient asking for discharge home. Now that patient is talking will ask care team to re-evaluate Total time managing care of this patient today ____ minutes. Patient educated on: diagnosis, medication risk/benefits, substance abuse and medical condition Informed Consent: understands
--- NOTE | 2025-01-29 11:47 | PC.NURSE ---
Addendum entered by Lety Magaña 01/29/25 11:52: Correction: Dr. Maya evaluated the patient, not Dr. Erickson. Original Note: Dr. Erickson came to bedside to speak with the patient. Patient is awake but drowsy. Patient has been resting with her eyes closed since this RN's shift began at 9am, however, she states I wasn't sleeping. I'm my doctor's worst patient. I take 5 medicines for sleep alone . Awaiting update regarding plan of care from Dr. Erickson. Care ongoing by this RN. Mikki (Gissel) remains at bedside.
--- NOTE | 2025-01-29 11:52 | PHA.MEDREC ---
Addendum entered by Jhonathan Escobar 01/29/25 12:09: reviewed Original Note: Pharmacy Consult ? Medication Reconciliation Pharmacy reviewed medication list done by nursing. Spoke with patient and she was able to confirm her medications. Patient confirmed she is taking Divalproex 500mg tabs taking 2 tabs at bedtime along with Divalproex 125mg 1 at bedtime for a TDD of 1125mg at bedtime; was not added on the med list originally. Patient also confirmed she is taking the Olanzapine 20mg as well as a 5mg tabs together at bedtime; Olanzapine 20mg tab was only confirmed on the med rec, I added the Olanzapine 5mg. Patient also confirmed her Tizanidine 4mg tab and states her script is written for 2 tabs twice a day but she has been taking 3 tabs (12mg BID).
--- NOTE | 2025-01-29 14:54 | PC.NURSE ---
CARE team (Sarai Barrett & Rosario Solano) to bedside speaking with patient for re-evaluation. Moved to ED 8H. Care ongoing by this RN.
--- NOTE | 2025-01-29 19:40 | MHC.CARE ---
Pt was evaluated by psych consult and The Care Team today 01/29/2025. Dr. Maya indicated that pt has capacity however, did not weigh in regarding risk and disposition of the pt. Pt at that time was re evaluated and continued to meet criteria for IPLOC secondary to unintentional harm to self and others secondary to an altered mental status. After being informed that she would remain a bed search at this time pt became upset and repeatedly asked to speak to the care team again at which time a clinician went again to meet with pt. Pt's HCP continues to voice major concerns and due to lack of safe discharge and the ED provider continuing to advocate for a higher level of care due to altered mental status she will remain on a section 12 pending placement. Pt was informed that she is not able to discharge at this time and will remain on a section 12. Bed search continues and if placement is not secured within 24 hours a mental status update will occur at that time.
[2025-01-29] MEDS: OLANZapine 10 MG TABLET 20 MG PO (19:54)
[2025-01-29] MEDS: clonazePAM 1 MG TABLET 2 MG PO (20:03)
[2025-01-29 20:42] VITALS: BP 102/54; PULSE 84; RESP 22; TEMP 37.1; O2SAT 95
[2025-01-30] MEDS: ARIPiprazole 20 MG TABLET PO ×2 (00:04→20:42)
[2025-01-30] MEDS: Zolpidem Tartrate 5 MG TABLET 10 MG PO ×2 (00:04→22:41)
--- NOTE | 2025-01-30 07:28 | PC.NURSE ---
Assumed care of patient at 0645, patient appears to be in no apparent distress this am, moved from ED 8H to 3 without issues by this RN. Continue plan of care for IPLOC
[2025-01-30] MEDS: TiZANidine HCL 4 MG TABLET 8 MG PO ×2 (08:07→20:42)
[2025-01-30] MEDS: clonazePAM 1 MG TABLET 2 MG PO ×2 (08:28→20:42)
--- NOTE | 2025-01-30 11:18 | MHC.CARE ---
Pt's roommate called back [phone]. He states he's noted pt has been more depressed since brother gained custody of son due to pt's substance use. He reports some concerns about wellbeing and unintentional self harm. Asked to be called back with any f/u questions.
[2025-01-30] MEDS: OLANZapine 10 MG TABLET 20 MG PO (20:42)
--- NOTE | 2025-01-30 20:49 | PC.NURSE ---
Patient continues to be in no apparent distress, took all pm medications without issue. Now resting in bed
[2025-01-30 20:54] VITALS: BP 140/76; PULSE 80; RESP 16; TEMP 36.7; O2SAT 100
--- NOTE | 2025-01-31 05:49 | PC.NURSE ---
Patient slept through the night, no distress observed/reported, meds and meals compliant, asymptomatic of ETOH withdrawal, disposition per care team is section-12 inpatient bed search, 15 minutes safety check, no behavior and safety concerns, will continue to monitor
[2025-01-31 06:02] VITALS: BP 111/90; PULSE 80; RESP 16; TEMP 36.1; O2SAT 98
--- NOTE | 2025-01-31 09:25 | PC.NURSE ---
Assumed care of patient at 0845, patient appears to be in no apparent distress this am, sleeping, respirations even and unlabored. Continue plan of care for IPLOC
[2025-01-31] MEDS: TiZANidine HCL 4 MG TABLET 8 MG PO ×2 (09:41→21:11)
[2025-01-31] MEDS: Acetaminophen 325 MG TABLET 975 MG PO (16:56)
--- NOTE | 2025-01-31 18:00 | PC.NURSE ---
pt resting throughout day, visted by friend Karey. Continue to remain inpatient bedsearch
[2025-01-31 20:42] VITALS: BP 144/64; PULSE 79; RESP 18; TEMP 36.8; O2SAT 99
[2025-01-31] MEDS: Zolpidem Tartrate 5 MG TABLET 10 MG PO (21:11)
[2025-01-31] MEDS: OLANZapine 10 MG TABLET 20 MG PO (21:11)
[2025-01-31] MEDS: clonazePAM 1 MG TABLET 2 MG PO (21:11)
[2025-01-31] MEDS: ARIPiprazole 20 MG TABLET PO (21:44)
[2025-02-01 01:53] VITALS: BP 108/74; PULSE 82; RESP 16; TEMP 36.6; O2SAT 100
[2025-02-01] MEDS: clonazePAM 1 MG TABLET PO (01:59)
--- NOTE | 2025-02-01 08:32 | PC.NURSE ---
pt is awake and alert, she has tolerated her meal tray. she is interacting approprialty with staff and maintians appropriate verbal tones and eye contact. pt has refused offered opportunity to shower, ed techs have expressed concern over her hygiene. bed search is ongoing.
[2025-02-01] MEDS: TiZANidine HCL 4 MG TABLET 8 MG PO ×2 (09:13→20:31)
--- NOTE | 2025-02-01 12:42 | PC.NURSE ---
verbal nurse to nurse report given to jonnie on inpatient psychiatric inhouse unit.
[2025-02-01 12:56] VITALS: BP 100/69; PULSE 74; RESP 14; TEMP 36.5; O2SAT 98
[2025-02-01 13:15] VITALS: BP 89/68; PULSE 86; RESP 17; TEMP 36.6; O2SAT 98
[2025-02-01 13:57] VITALS: BMI 27.3
--- NOTE | 2025-02-01 16:24 | P.HPPS_ITS ---
HPI Date of Service: 02/01/25 Chief Complaint: Mood Disorder HPI Narrative: per CARE team ayad womack BIBA after her neighbor called police due to concerning texts pt had been sending her. one text involved an image of pt with a bloodied face. pt presented to ED with garbled speech and left facial drop and was ruled out for CVA. pt was not able to cooperate fully with evaluation due to altered mental status. on interview with pt on unit, pt was calm and cooperative. awake, adequately alert, linear and logical. very rigid regarding her scripts, not interested in decreasing her current regimen. only interested in augmenting current medications regimen with additional sedating medication due to c/o insomnia. minimizing and avoiding role and discussion of illicit substance use in her presentation and problems; cocaine and stimulant POS utox was not seen by patient as relevant to her c/o insomnia. reported only one-time use, which is not credible from evidence of repeated hospital presentations with positive utoxes and similar presentations. signed CV reluctantly and then a 3-day notice, which will on . reports she needs to leave the hospital because her son has a softball tournament in [place] which she must attend. Past Psychiatric History: -past meds: seroquel, haldol, wellbutrin, klonopin, ambien, celexa, -pt has had [address] [facility] no h/o SA, SIB. OP: currently seen by [facility] Medical Evaluation Reviewed: Yes [facility] Medical History (Updated 01/31/25 @ 00:01 by Background Veronique) Bipolar disorder Bipolar disorder Failed back surgical syndrome Lumbar radiculopathy, chronic Yeast vaginitis Viral gastroenteritis Vaginitis Use of opiates for therapeutic purposes Tachycardia Social anxiety disorder Right elbow pain Pyogenic granuloma Phlebitis 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 Paralysis Neck pain Mental status change resolved Medication side effects Lumbar radiculitis Low ferritin Low back pain Leukocytosis Gluteal pain Gastric stress ulcer Dysconjugate gaze Cough Gonsalves hemangioma Cervical spinal cord compression Cervical radiculitis Anal fissure Vitamin D deficiency Vaginal discharge Underweight Tubular adenoma Sleep disturbance Right cervical radiculopathy Rash Presbycusis Plantar wart Pharyngitis Paresthesia of right upper limb Panic attacks Muscle spasm Leg weakness Left rib fracture Irritable bowel syndrome Fibromyalgia Dysuria Contact dermatitis Chronic pain Chronic night sweats Chronic narcotic use Chronic diarrhea Anxiety Anemia Surgical History H/O lumbar discectomy Hx of colonoscopy H/O colectomy H/O laparoscopy H/O endoscopy S/P cervical discectomy Family History: denies Social History: Raised by both parents, along with 4 siblings. has 3 older brothers and 1 younger. Met developmental milestones as expected, graduated high school, bachelor's degree. 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 -no longer lives with her now former boyfriend, bryn, as the relationship has ended since last discharge 09/12/22. son lives with her brother. she reports she is about to receive a court order allowing only for supervised visits with her son. Substance History: chronic polysubstance use disorder. h/o sedative/hypnotic, cocaine, stimulant use disorder. utox POS for cocaine, stimulants, benzos, cannabis Trauma History: none divulged Diagnostics Vital Signs (24Hr): Vital Signs - 24 hr 01/31/25 20:42 02/01/25 01:53 02/01/25 12:56 Temperature 98.2 F 97.8 F 97.7 F Pulse Rate 79 82 74 Respiratory Rate 18 16 14 Blood Pressure 144/64 H 108/74 100/69 Pulse Oximetry 99 100 98 Oxygen Delivery Method Room Air Room Air Room Air 02/01/25 13:15 Temperature 97.8 F Pulse Rate 86 Respiratory Rate 17 Blood Pressure 89/68 L Pulse Oximetry 98 Oxygen Delivery Method Room Air BMI result Body Mass Index 27.3 Labs 01/27/25 18:24 01/27/25 18:24 Meds/Allergies Meds Home Medications ?Medication ?Instructions ?Recorded ?Confirmed ?Type clonazepam 2 mg tablet 2 mg PO BEDTIME 05/26/24 01/29/25 History aripiprazole 20 mg tablet 20 mg PO BEDTIME 01/27/25 01/29/25 History olanzapine 20 mg tablet 20 mg PO BEDTIME 01/27/25 01/29/25 History zolpidem 10 mg tablet 10 mg PO BEDTIME PRN Insomnia 01/27/25 01/29/25 History divalproex 125 mg capsule,delayed 125 mg PO BEDTIME 01/29/25 01/29/25 History release sprinkle divalproex 500 mg tablet,extended 1,000 mg PO BEDTIME 01/29/25 01/29/25 History release 24 hr olanzapine 5 mg tablet 5 mg PO BEDTIME 01/29/25 01/29/25 History tizanidine 4 mg tablet 12 mg PO BID 01/29/25 01/29/25 History Allergies Allergies Allergy/AdvReac Type Severity Reaction Status Date / Time duloxetine [From CYMBALTA] Allergy Unknown Hallucinati Verified 01/27/25 18:46 ons morphine [MORPHINE] Allergy Unknown HALLUCINATI Verified 01/27/25 18:46 ONS Phenylpiperazine AdvReac Severe hallucinati Verified 01/27/25 18:46 Antidepressant ons Tetracyclic Antidepressants AdvReac Severe hallucinati Verified 01/27/25 18:46 ons fentanyl [FENTANYL] AdvReac Unknown Hallucinati Verified 01/27/25 18:46 ons Mental Status Exam Mental Status Exam Narrative: wearing hospital attire. cooperative. no PMA/PMR. speech nml rate, amount, loudness, latency. thoughts linear and organized. affect normo-intense, constricted, non-labile. mood anxious. no SI/SIBI/HI/AVH. 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 there appears little to be gained in addressing her complaints at face value due to ongoing severe substance use disorder. pt informed of as much but is not interested in addressing her substance use issues. notwithstanding the above, continue home regimen aside from increase HS olanzapine to 30 mg for sleep. CV and 3-day, up . Patient educated on: medication risk/benefits, substance abuse and therapeutic strategies Reason for continued inpatient stay Substantial Risk for: harm to self and inability to function Statement Statement: I have reviewed the history and physical and performed a pertinent examination on my patient. No changes have occurred unless specified. If the History and Physical was not performed prior to admission, the Hospitalist's service will be consulted for completing the admission physical. Time Spent With Patient Time: Total time managing care of this patient today __55__ minutes.
[2025-02-01] MEDS: Simethicone 80 MG TAB.CHEW PO ×2 (17:08→20:30)
--- NOTE | 2025-02-01 17:24 | PC.ADMIT ---
Patient is a 54 year old woman admitted from the ED POD on a CV for treatment of Bipolar Disorder Unspecified and Cocaine Abuse. According to the crisis eval, pt was MICAH after her neighbor called reporting Kathrine was sending nonsensical text messages along with a text of the patient with a bloodied face, with no additional context or reply from Kathrine. Upon arrival, pt was sent to the main ED after presenting with facial droop and garbled speech , (was later medically cleared). Upon assessment, patient is A&Ox3, with limited insight into situation, as she believes her friend brought her to the ED only due to experiencing mumbled speech . Patient presents as fatigued and hygiene is poor (appearance is malodorous and unkempt). She denies any change in appetite and states her main issue is her sleep I haven't slept in 9 days! It's affecting my vision, my health, everything! . She denies SI/HI/AVH but endorses some anxiety and depression. When asked if pt has experienced any recent life changes, she declined to answer and asked if the subject could be changed and all other answers to questions are limited/vague. Her Tox screen was positive for cocaine, marijuana, benzo's, and amphetamines, although Kathrine only admits to using cocaine once last week and never again. Patient's skin check was completed and she was noted to have an old bruise to her right eye that she reports is from a previous fall (All other skin is unremarkable). She states her goal is To be able to sleep at least 4 hours and to get medications adjusted . Patient has been placed as a high fall risk for hx of falls and put on 15 minute checks.
[2025-02-01 19:35] VITALS: BP 139/83; PULSE 97; RESP 18; TEMP 36.7; O2SAT 100
[2025-02-01] MEDS: ARIPiprazole 20 MG TABLET PO (20:29)
[2025-02-01] MEDS: clonazePAM 1 MG TABLET 2 MG PO (20:30)
[2025-02-01] MEDS: Zolpidem Tartrate 5 MG TABLET 10 MG PO (20:30)
[2025-02-01] MEDS: OLANZapine 10 MG TABLET 30 MG PO (20:30)
[2025-02-01] MEDS: traZODone HCL 50 MG TABLET PO ×2 (20:31→22:30)
[2025-02-02] MEDS: TiZANidine HCL 4 MG TABLET 8 MG PO ×2 (09:24→20:32)
[2025-02-02] MEDS: Simethicone 80 MG TAB.CHEW PO ×4 (09:24→20:32)
[2025-02-02 09:25] VITALS: BP 133/75; PULSE 79; RESP 18; TEMP 36.8; O2SAT 99
[2025-02-02] MEDS: Acetaminophen 325 MG TABLET 650 MG PO ×2 (11:15→20:32)
[2025-02-02 14:27] LABS: Alanine Aminotransferase 19 U/L (0-31); Alkaline Phosphatase 72 U/L (39-117); Anion Gap 12 (12-20); Aspartate Amino Transferase 24 U/L (5-31); Bilirubin Total 0.2 mg/dL (0.0-1.0); Blood Urea Nitrogen 15 mg/dL (9-16); Calcium 9.2 mg/dL (8.4-10.2); Carbon Dioxide 26 mmol/L (22-29); Chloride 105 mmol/L (96-108); Creatinine Clr Calc Pharmacy 83.1; Estimated Glomerular Filt Rate > 60; Glucose Random 109 mg/dL (60-115); Potassium 3.9 mmol/L (3.3-5.1); Sodium 139 mmol/L (135-145); Total Protein 6.6 g/dL (6.5-8.0)
--- NOTE | 2025-02-02 15:57 | P.PNPSI_ITS ---
Subjective Subjective Date of Service: 02/02/25 Reason For Visit: Mood Disorder Interim History: in bed, c/o back pain. c/o poor sleep. reviewed need for pt to remain in hospital longer than 3 days to assess her condition after sobriety from cocaine, etc. pt disputing utox results, saying she used cocaine only once and it was more than several days ago. rehashes recent episodes of impaired memory consolidation. new slurring of words noted. MD informs pt that reduction in klonopin dosing is indicated, to 1.5 mg BID. per staff, some anxiety/depression. slept 5.5 hours. Mental Status Exam Mental Status Exam Narrative: wearing hospital attire. cooperative. no PMA/PMR. speech nml rate, amount, loudness, latency. thoughts linear and organized. affect normo-intense, constricted, non-labile. mood anxious. no SI/SIBI/HI/AVH expressed. Diagnostics Vital Signs (24Hr): Vital Signs - 24 hr 02/01/25 19:35 02/02/25 09:25 Temperature 98.0 F 98.2 F Pulse Rate 97 79 Respiratory Rate 18 18 Blood Pressure 139/83 133/75 Pulse Oximetry 100 99 Oxygen Delivery Method Room Air Room Air BMI result Body Mass Index 27.3 Labs 01/27/25 18:24 02/02/25 13:42 Labs: Laboratory Results - last 48 hr 02/02/25 13:42 Sodium 139 Potassium 3.9 Chloride 105 Carbon Dioxide 26 Anion Gap 12 BUN 15 Creatinine 0.80 Estim Creat Clear Calc 83.1 Estimated GFR > 60 Random Glucose 109 Calcium 9.2 Total Bilirubin 0.2 AST 24 ALT 19 Alkaline Phosphatase 72 Total Protein 6.6 Albumin 4.0 Medications Medications Current Medications Acetaminophen (Acetaminophen 325 Mg Tablet) 650 mg PO Q6H PRN PRN Reason: Headache/Pain, Scale 1-10 Last Admin: 02/02/25 11:15 Dose: 650 mg Al Hydroxide/Mg Hydroxide (Magnesium Hydrox/Alum Hydrox 30 Ml Oral.Susp) 30 ml PO Q6H PRN PRN Reason: Heartburn/Nausea Aripiprazole (Aripiprazole 20 Mg Tablet) 20 mg PO BEDTIME PEDRITO Last Admin: 02/01/25 20:29 Dose: 20 mg Clonazepam (Clonazepam 0.5 Mg Tablet) 1.5 mg PO BEDTIME PEDRITO Hydroxyzine HCl (Hydroxyzine Hcl 25 Mg Tablet) 25 mg PO Q6H PRN PRN Reason: mild anxiety Magnesium Hydroxide (Milk Of Magnesia 30 Ml Oral.Susp) 30 ml PO DAILY PRN PRN Reason: Constipation Nicotine Polacrilex (Nicotine Polacrilex 2 Mg Gum) 4 mg BUCCAL Q2H PRN PRN Reason: Nicotine Cravings Olanzapine (Olanzapine 10 Mg Tablet) 30 mg PO BEDTIME REPLACED BY [facility] Last Admin: 02/01/25 20:30 Dose: 30 mg Simethicone (Simethicone 80 Mg Tab.Chew) 80 mg PO QIDWMHS REPLACED BY [facility] Last Admin: 02/02/25 12:40 Dose: 80 mg Tizanidine HCl (Tizanidine Hcl 4 Mg Tablet) 8 mg PO BID REPLACED BY [facility] Last Admin: 02/02/25 09:24 Dose: 8 mg Trazodone HCl (Trazodone Hcl 50 Mg Tablet) 50 mg PO BEDTIME MRX1 PRN PRN Reason: Insomnia Last Admin: 02/01/25 22:30 Dose: 50 mg Zolpidem Tartrate (Zolpidem Tartrate 5 Mg Tablet) 10 mg PO BEDTIME PRN PRN Reason: Insomnia Last Admin: 02/01/25 20:30 Dose: 10 mg Allergies Allergies Allergy/AdvReac Type Severity Reaction Status Date / Time duloxetine [From CYMBALTA] Allergy Unknown Hallucinati Verified 01/27/25 18:46 ons morphine [MORPHINE] Allergy Unknown HALLUCINATI Verified 01/27/25 18:46 ONS Phenylpiperazine AdvReac Severe hallucinati Verified 01/27/25 18:46 Antidepressant ons Tetracyclic Antidepressants AdvReac Severe hallucinati Verified 01/27/25 18:46 ons fentanyl [FENTANYL] AdvReac Unknown Hallucinati Verified 01/27/25 18:46 ons Assessment & Plan Assessment & Plan (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 there appears little to be gained in addressing her complaints at face value due to ongoing severe substance use disorder. pt informed of as much but is not interested in addressing her substance use issues. 02/01: notwithstanding the above, continue home regimen aside from increase HS olanzapine to 30 mg for sleep. CV and 3-day, up . 02/02: c/o poor sleep overnight, staff report slept 5.5 hours. on interview pt allows for sleep of 4.5 hours. discussion held re slurring, poor memory consolidation. informs pt klonopin will be reduced by 25%, to 1.5 mg BID, in bid to reduce apparent overmedication. pt disputes both assessment and action. c/o low back pain. case D/W musa, who informs that he discharged pt from [facility] in 2019 on: tizanidine 4 Q6H PRN, seroquel 200 QHS, klonopin, remeron 7.5 QHS. Reason for continued inpatient stay Substantial Risk for: inability to function and med/psych decompensation Time Spent With Patient Time: Total time managing care of this patient today __35__ minutes.
[2025-02-02] MEDS: Ibuprofen 600 MG TABLET PO (16:28)
[2025-02-02 20:00] VITALS: BP 159/92; PULSE 76; RESP 18; TEMP 37.1; O2SAT 99
[2025-02-02] MEDS: traZODone HCL 50 MG TABLET PO (20:30)
[2025-02-02] MEDS: OLANZapine 10 MG TABLET 30 MG PO (20:31)
[2025-02-02] MEDS: Zolpidem Tartrate 5 MG TABLET 10 MG PO (20:31)
[2025-02-02] MEDS: clonazePAM 0.5 MG TABLET 1.5 MG PO (20:31)
[2025-02-02] MEDS: ARIPiprazole 20 MG TABLET PO (20:32)
[2025-02-03] MEDS: traZODone HCL 50 MG TABLET PO ×2 (00:54→20:11)
[2025-02-03] MEDS: Acetaminophen 325 MG TABLET 650 MG PO (04:43)
[2025-02-03 08:00] VITALS: BP 122/72; PULSE 71; RESP 16; TEMP 36.7; O2SAT 97
[2025-02-03] MEDS: Simethicone 80 MG TAB.CHEW PO ×3 (08:11→16:51)
[2025-02-03] MEDS: TiZANidine HCL 4 MG TABLET 8 MG PO ×2 (08:11→20:11)
--- NOTE | 2025-02-03 10:58 | P.DS_ITS ---
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 (2) Cocaine use disorder: Status: Acute (3) Sleep disturbance: Status: Acute (4) Mood disorder: Status: Resolved DS: Medications Discharge Medications Home Medications: Home Medications ?Medication ?Instructions ?Recorded ?Confirmed aripiprazole 20 mg tablet 20 mg PO BEDTIME 01/27/25 01/29/25 zolpidem 10 mg tablet 10 mg PO BEDTIME PRN Insomnia 01/27/25 01/29/25 Previous Rx's ?Medication ?Instructions ?Recorded clonazepam 0.5 mg tablet 1.5 mg (3 x 0.5 mg) PO BEDTIME #0 02/03/25 tabs divalproex 500 mg tablet,extended 500 mg PO BEDTIME 30 days #30 tabs 02/03/25 release 24 hr (Depakote ER) ibuprofen 600 mg tablet 600 mg PO Q6H PRN low back pain 30 02/03/25 days #120 tabs olanzapine 10 mg tablet 30 mg (3 x 10 mg) PO BEDTIME 15 02/03/25 days #45 tabs tizanidine 4 mg tablet 8 mg (2 x 4 mg) PO BID #0 tabs 02/03/25 trazodone 50 mg tablet 100 mg (2 x 50 mg) PO BEDTIME 02/03/25 Insomnia 15 days #30 tabs Mental Status Exam Mental Status Exam Narrative: wearing hospital attire. cooperative. no PMA/PMR. speech nml rate, amount, loudness, latency. thoughts linear and organized. affect normo-intense, constricted, non-labile. mood great. no SI/SIBI/HI/AVH. Data Data Completed and Pending Completed studies during hospitalization [Text1]: 01/27/25 01/27/25 01/27/25 18:09 18:24 19:11 WBC 9.5 RBC 4.97 Hgb 14.7 Hct 44.0 MCV 88.5 MCH 29.6 MCHC 33.4 RDW 13.7 Plt Count 528 H MPV 9.5 Immature Gran % (Auto) 0.4 Neut % (Auto) 74.0 H Lymph % (Auto) 18.7 L [place] % (Auto) 5.8 Eos % (Auto) 0.1 Baso % (Auto) 1.0 Lymph # (Auto) 1.8 [place] # (Auto) 0.6 Eos # (Auto) 0.0 Baso # (Auto) 0.1 Abs Immat Gran (auto) 0.04 H Absolute Neuts (auto) 7.0 Absolute Nucleated RBC 0.000 Nucleated RBC % (auto) 0.0 PT (Fingerstick) 12.5 PT 11.5 INR (Fingerstick) 1.0 INR 1.0 APTT 33.1 D Sodium 144 Potassium 4.1 Chloride 110 H Carbon Dioxide 20 L Anion Gap 18 BUN 14 Creatinine 1.00 Estim Creat Clear Calc 68.2 Estimated GFR 58 POC Glucose 151 H Random Glucose 109 Calcium 9.4 D Magnesium 2.0 Total Bilirubin 0.4 Direct Bilirubin 0.1 AST 29 ALT 20 Alkaline Phosphatase 84 Troponin I High Sens 7.2 D Total Protein 7.5 Albumin 4.6 Triglycerides 89 Cholesterol 183 LDL Cholesterol, Calc 114 H HDL Cholesterol 52 Urine Color Dark Yellow Urine Appearance Clear Urine pH 5.5 Ur Specific [place] >= 1.030 H Urine Protein 30 (1+) H Urine Glucose (UA) Negative Urine Ketones 40 Urine Blood Negative Urine Nitrite Negative Ur Leukocyte Esterase Negative Urine RBC 0-2 Urine WBC 0-5 Ur Squamous Epith Cells 3-5 Urine Bacteria None Seen Hyaline Casts 3-5 Urine Yeast Present Urine Opiates Screen Not Detected Ur Buprenorphine Scrn Not Detected Ur Oxycodone Screen Not Detected Urine Methadone Screen Not Detected Urine Fentanyl Screen Not Detected Ur Barbiturates Screen Not Detected Ur Phencyclidine Scrn Not Detected Ur Amphetamines Screen POSITIVE H U Benzodiazepines Scrn POSITIVE H Urine Cocaine Screen POSITIVE H U Marijuana (THC) Screen POSITIVE H Ethyl Alcohol < 10 01/27/25 02/02/25 22:24 13:42 WBC RBC Hgb Hct MCV MCH MCHC RDW Plt Count MPV Immature Gran % (Auto) Neut % (Auto) Lymph % (Auto) [place] % (Auto) Eos % (Auto) Baso % (Auto) Lymph # (Auto) [place] # (Auto) Eos # (Auto) Baso # (Auto) Abs Immat Gran (auto) Absolute Neuts (auto) Absolute Nucleated RBC Nucleated RBC % (auto) PT (Fingerstick) PT INR (Fingerstick) INR APTT Sodium 139 Potassium 3.9 Chloride 105 Carbon Dioxide 26 Anion Gap 12 BUN 15 Creatinine 0.80 Estim Creat Clear Calc 83.1 Estimated GFR > 60 POC Glucose 89 Random Glucose 109 Calcium 9.2 Magnesium Total Bilirubin 0.2 Direct Bilirubin AST 24 ALT 19 Alkaline Phosphatase 72 Troponin I High Sens Total Protein 6.6 Albumin 4.0 Triglycerides Cholesterol LDL Cholesterol, Calc HDL Cholesterol Urine Color Urine Appearance Urine pH Ur Specific [place] Urine Protein Urine Glucose (UA) Urine Ketones Urine Blood Urine Nitrite Ur Leukocyte Esterase Urine RBC Urine WBC Ur Squamous Epith Cells Urine Bacteria Hyaline Casts Urine Yeast Urine Opiates Screen Ur Buprenorphine Scrn Ur Oxycodone Screen Urine Methadone Screen Urine Fentanyl Screen Ur Barbiturates Screen Ur Phencyclidine Scrn Ur Amphetamines Screen U Benzodiazepines Scrn Urine Cocaine Screen U Marijuana (THC) Screen Ethyl Alcohol DS: Summary Hospital Course Hospital Course: per 02/01 admission note: HPI Narrative: per CARE team vu, pt BIBA after her neighbor called police due to concerning texts pt had been sending her. one text involved an image of pt with a bloodied face. pt presented to ED with garbled speech and left facial drop and was ruled out for CVA. pt was not able to cooperate fully with evaluation due to altered mental status. on interview with pt on unit, pt was calm and cooperative. awake, adequately alert, linear and logical. very rigid regarding her scripts, not interested in decreasing her current regimen. only interested in augmenting current medications regimen with additional sedating medication due to c/o insomnia. minimizing and avoiding role and discussion of illicit substance use in her presentation and problems; cocaine and stimulant POS utox was not seen by patient as relevant to her c/o insomnia. reported only one-time use, which is not credible from evidence of repeated hospital presentations with positive utoxes and similar presentations. signed CV reluctantly and then a 3-day notice, which will on . reports she needs to leave the hospital because her son has a softball tournament in drums which she must attend. Past Psychiatric History: -past meds: seroquel, haldol, wellbutrin, klonopin, ambien, celexa, -pt has had 6 previous inpatient stays at [facility] no h/o SA, SIB. 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 Paralysis Neck pain Mental status change resolved Medication side effects Lumbar radiculitis Low ferritin Low back pain Leukocytosis Gluteal pain Gastric stress ulcer Dysconjugate gaze Cough Gonsalves hemangioma Cervical spinal cord compression Cervical radiculitis Anal fissure Vitamin D deficiency Vaginal discharge Underweight Tubular adenoma Sleep disturbance Right cervical radiculopathy Rash Presbycusis Plantar wart Pharyngitis Paresthesia of right upper limb Panic attacks Muscle spasm Leg weakness Left rib fracture Irritable bowel syndrome Fibromyalgia Dysuria Contact dermatitis Chronic pain Chronic night sweats Chronic narcotic use Chronic diarrhea Anxiety Anemia Surgical History H/O lumbar discectomy Hx of colonoscopy H/O colectomy H/O laparoscopy H/O endoscopy S/P cervical discectomy Family History: denies Social History: Raised by both parents, along with 4 siblings. has 3 older brothers and 1 younger. Met developmental milestones as expected, graduated high school, bachelor's degree. 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 -no longer lives with her now former boyfriend, bryn, as the relationship has ended since last discharge 09/12/22. son lives with her brother. she reports she is about to receive a court order allowing only for supervised visits with her son. Substance History: chronic polysubstance use disorder. h/o sedative/hypnotic, cocaine, stimulant use disorder. utox POS for cocaine, stimulants, benzos, cannabis Trauma History: none divulged Precis: not considered a reliable historian. there appears little to be gained in addressing her complaints at face value due to ongoing severe substance use disorder. pt informed of as much but is not interested in addressing her substance use issues. 02/01: notwithstanding the above, continue home regimen aside from increase HS olanzapine to 30 mg for sleep. CV and 3-day, up . 02/02: c/o poor sleep overnight, staff report slept 5.5 hours. on interview pt allows for sleep of 4.5 hours. discussion held re slurring, poor memory consolidation. informs pt klonopin will be reduced by 25%, to 1.5 mg BID, in bid to reduce apparent overmedication. pt disputes both assessment and action. c/o low back pain. case D/W musa, who informs MD that he discharged pt from [facility] in 2019 on: tizanidine 4 Q6H PRN, seroquel 200 QHS, klonopin, remeron 7.5 QHS. 02/03: pt reports having slept VERY well last night. wanting DC tomorrow. meds reviewed, reconciled, prescribed. planing for discharge to outpt F/U tomorrow. calm, cooperative, still slurring speech but appears fully conscious. 02/04: stable overnight. no notable behaviors or incidents. reported poor sleep once again. discharged as per plan. Time Spent with Patient Time attestation: Total time managing care of this patient today __35__ minutes. Discharge Plan Discharge Anticipated Discharge Date/Time: 02/04/25 12:00 Patient Disposition: Home, Self-Care Discharge Diagnosis: sedative/hypnotic dependence mood disorder NOS cocaine use disorder dysarthria Referrals: Camille Chapman (Psychiatry) [Other] - 02/22/25 1:00 pm (IN OFFICE APPOINTMENT) Therapy [Other] - 1 Week (*Please follow up with intake staff at the agency above regarding a referral for outpatient therapy. ) Ann Monsivais, MACHINE TOOL OPERATOR [Primary Care Provider] - 1 Week (02-03-25 Please contact your primary care provider within 7-10 days of discharge to schedule your follow up appt. No release on file.) Discharge Medications: New trazodone 50 mg Tablet 100 mg PO BEDTIME 15 Days Qty: 30 0RF tizanidine 4 mg Tablet 8 mg PO BID Qty: 0 0RF clonazepam 0.5 mg Tablet 1.5 mg PO BEDTIME Qty: 0 0RF olanzapine 10 mg Tablet 30 mg PO BEDTIME 15 Days Qty: 45 0RF ibuprofen 600 mg Tablet 600 mg PO Q6H PRN (Reason: low back pain) 30 Days Qty: 120 0RF divalproex [Depakote ER] 500 mg tablet extended release 24 hr 500 mg PO BEDTIME 30 Days Qty: 30 0RF Continued zolpidem 10 mg tablet 10 mg PO BEDTIME PRN (Reason: Insomnia) aripiprazole 20 mg tablet 20 mg PO BEDTIME Discontinued olanzapine 20 mg tablet 20 mg PO BEDTIME Patient Comments: Taken with 5mg tab at bedtime for TDD 25mg. tizanidine 4 mg tablet 12 mg PO BID divalproex 500 mg tablet extended release 24 hr 1,000 mg PO BEDTIME Rx Instructions: TAKEN WITH 125MG AT BEDTIME TOTAL DAILY DOSE 1125MG divalproex 125 mg capsule, delayed rel sprinkle 125 mg PO BEDTIME Rx Instructions: TAKEN WITH 1000MG AT BEDTIME TOTAL DAILY DOSE 1125MG olanzapine 5 mg tablet 5 mg PO BEDTIME Rx Instructions: Taken with 20mg tab at bedtime for TDD 25mg. clonazepam 2 mg tablet 2 mg PO BEDTIME Rx Instructions: administer 30 minutes before bedtime Discharge Orders: Discharge Order (Routine); Ordered 02/04/25 Ordered By: Omar Jean Diet: Advance to usual diet Activity on Discharge: As tolerated Stand Alone Forms: Patient Portal Discharge page, Community Support Print Language: Vietnamese Care Plan Goals: remain safe, stable, and sober in the outpatient treatment setting Health Concerns: chronic pain Plan of Treatment: take medications as prescribed, attend appointments as scheduled Assessment: not at imminent risk of harm to self or others Discharge Date/Time: 02/04/25 10:53
[2025-02-03] MEDS: Ibuprofen 600 MG TABLET PO (16:50)
[2025-02-03 20:00] VITALS: BP 121/70; PULSE 92; RESP 16; TEMP 37; O2SAT 98
[2025-02-03] MEDS: Zolpidem Tartrate 5 MG TABLET 10 MG PO (20:11)
[2025-02-03] MEDS: clonazePAM 0.5 MG TABLET 1.5 MG PO (20:12)
[2025-02-03] MEDS: ARIPiprazole 20 MG TABLET PO (20:12)
[2025-02-03] MEDS: OLANZapine 10 MG TABLET 30 MG PO (20:12)
[2025-02-04] MEDS: traZODone HCL 50 MG TABLET PO (01:32)
[2025-02-04] MEDS: hydrOXYzine HCL 25 MG TABLET PO (01:33)
[2025-02-04 08:00] VITALS: BP 122/60; PULSE 80; RESP 14; TEMP 36.8; O2SAT 97
[2025-02-04] MEDS: Simethicone 80 MG TAB.CHEW PO (08:13)
[2025-02-04] MEDS: TiZANidine HCL 4 MG TABLET 8 MG PO (08:13)
== END 2025-02-04 10:53 | disposition home or self-care (01) | DRG 885 ==
LOC: HO.ED 01-30 06:46 → HO.PADLT16 02-01 11:49
PROVIDERS: Physician Assistant Medical; Registered Nurse Emergency; Admitting Provider Psychiatry & Neurology Psychiatry; Emergency Provider Emergency Medicine; PCP Nurse Practitioner Family; Visit Provider Psychiatry & Neurology Psychiatry
DX: F39 Unspecified mood [affective] disorder (principal); F19.10 Other psychoactive substance abuse, uncomplicated; G89.4 Chronic pain syndrome; F13.10 Sedative, hypnotic or anxiolytic abuse, uncomplicated; F14.10 Cocaine abuse, uncomplicated; G47.9 Sleep disorder, unspecified; R47.1 Dysarthria and anarthria; Z79.899 Other long term (current) drug therapy
CPT/HCPCS: 36415; 70450; 70496; 70498; 80048; 80053; 80061; 80076; 80307; 81001; 82947; 83735; 84484; 85025; 85610; 85730; 93005; 99285; Q9967; S9485

== ENCOUNTER → 2025-01-27 18:05 | Outpatient (BNV) | payer MEDICARE, SELFPAY | PROVIDERS: PCP Nurse Practitioner Family; Visit Provider Radiology Diagnostic Radiology | DX: E04.1 Nontoxic single thyroid nodule (principal); J90 Pleural effusion, not elsewhere classified; R41.82 Altered mental status, unspecified | CPT/HCPCS: 70450; 70496; 70498 ==

== ENCOUNTER → 2025-01-27 18:05 | Outpatient (BNV) | payer MEDICARE, SELFPAY | PROVIDERS: Emergency Provider Emergency Medicine; PCP Nurse Practitioner Family; Visit Provider Internal Medicine Cardiovascular Disease | DX: R94.31 Abnormal electrocardiogram [ECG] [EKG] (principal); I63.9 Cerebral infarction, unspecified | CPT/HCPCS: 93010 ==

== ENCOUNTER → 2025-01-27 18:42 | Outpatient (BNV) | payer MEDICARE, SELFPAY | PROVIDERS: Emergency Provider Emergency Medicine; PCP Nurse Practitioner Family; Visit Provider Psychiatry & Neurology Psychiatry | DX: F32.A Depression, unspecified (principal); F14.10 Cocaine abuse, uncomplicated; R47.1 Dysarthria and anarthria | CPT/HCPCS: 90792; 99231; 99232; 99239; 99283 ==

== ENCOUNTER 2025-08-02 12:25 | Outpatient (AMB) | payer MEDICARE, MEDICAID, SELFPAY ==
--- NOTE | 2025-08-02 12:27 | MHC.PC.OV ---
Vital Signs 08/02/25 12:32 Height 5 ft 6 in Weight 150 lb 6 oz BMI 24.3 BP 136/91 H Blood Pressure Location Lt brachial Position Sitting Respiration 16 Pulse 96 Pulse Source Pulse Oximeter Temp 97.8 F Temp Source Oral Pulse Oximetry (%) 96 Oxygen Delivery Method Room Air Intake Visit Reasons: Knee problem rescheduled Intake Note: patient here c/o right knee problem. she is having spasm Crane Rigger Required: No Is last menstrual period known: Yes Last menstrual period: 07/20/25 Post menopausal: No Patient : No Allergies duloxetine (From CYMBALTA) Allergy (Unknown, Verified 08/02/25 12:36) Hallucinations morphine (MORPHINE) Allergy (Unknown, Verified 08/02/25 12:36) HALLUCINATIONS Phenylpiperazine Antidepressant Adverse Reaction (Severe, Verified 08/02/25 12:36) hallucinations Tetracyclic Antidepressants Adverse Reaction (Severe, Verified 08/02/25 12:36) hallucinations fentanyl (FENTANYL) Adverse Reaction (Unknown, Verified 08/02/25 12:36) Hallucinations Medication List - Last Reconciled 08/02/25 by Ann Monsivais CNP aripiprazole 20 mg PO BEDTIME clonazepam 1.5 mg (3 x 0.5 mg) PO BEDTIME divalproex ER (Depakote ER) 500 mg PO BEDTIME 30 days ibuprofen 600 mg PO Q6H PRN 30 days olanzapine 30 mg (3 x 10 mg) PO BEDTIME 15 days tizanidine 8 mg (2 x 4 mg) PO BID Tobacco use date assessed: 08/02/25 Dental Screening Dental Screen Date: 08/02/25 Did you have a dental visit in the last 12 months?: Yes Did you have a dental problem in the last 6 months where you did not have access to dental care?: No Was dental information given to patient?: Patient has dentist HPI HPI Comments History of Present Illness Details 55-year-old female presents with complaints right knee pain. She describes the pain as sharp, throbbing. She notes that she tore her ACL and meniscus while taking stuff out of her laundry about a week ago. She denies fall or trauma. She was evaluated at [facility] urgent care where an MRI was perform. She was issued a need brace to wear x 6 week, referred to PT, and ordered meloxicam. She has been alternating between Tylenol and meloxicam. She was told by [facility] that surgery will be reqire and was a follow up appointment with them in 6 weeks. She is able to bear full wait on the knee and abulates without assistive devices. She notes chronic back spasms for which current dose of tizanidine is not effective. She states that she is on tizanidine for both sleep disturbance and back spasms. She wants her does of tizadine increased to 8 mg twice daily (patient is currently on 8 mg twice daily); she states she has been on 8 mg once a day. She has never had PT nor has she been seen by ortho for her back spasms. She is willing to be referred to physical therapy and ortho for her back spasms. 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 Paralysis Neck pain Mental status change resolved Medication side effects Lumbar radiculitis Low ferritin Low back pain Leukocytosis Gluteal pain Gastric stress ulcer Dysconjugate gaze Cough Gonsalves hemangioma Cervical spinal cord compression Cervical radiculitis Anal fissure Vitamin D deficiency Vaginal discharge Underweight Tubular adenoma Sleep disturbance Right cervical radiculopathy Rash Presbycusis Plantar wart Pharyngitis Paresthesia of right upper limb Panic attacks Muscle spasm Leg weakness Left rib fracture Irritable bowel syndrome Fibromyalgia Dysuria Contact dermatitis Chronic pain Chronic night sweats Chronic narcotic use Chronic diarrhea Anxiety Anemia Surgical History H/O lumbar discectomy Hx of colonoscopy H/O colectomy H/O laparoscopy H/O endoscopy S/P cervical discectomy Family History Father AAA (abdominal aortic aneurysm) Mother TMJ (temporomandibular joint disorder) Social History Household Members: Other Household Members Other:: roommate Housing: Condominium Do you presently have visiting nurse or other home services: No Alcohol intake: unknown Patient Tobacco Use Status: Never used Tobacco e-Cigarette/Vaping Use: Never Used Second Hand Smoke Exposure: No Substance Use Type: Marijuana Advance Directives Date on File: 09/13/22 service: No Current occupational status: disabled Current occupational exposures/hazards: No Sexual orientation: Straight/Heterosexual Cognitive needs: No Hearing needs: No Vision needs: Yes Female Reproductive History Menstrual Date of last menstrual period: 07/20/25 Questionnaire PHQ-9 Over the last 2 weeks, how often have you been bothered by any of the following problems? 1. Little interest or pleasure in doing things: several days 2. Feeling down, depressed, or hopeless: several days 3. Trouble falling or staying asleep, or sleeping too much: nearly every day 4. Feeling tired or having little energy: several days 5. Poor appetite or overeating: not at all 6. Feeling bad about yourself - or that you are a failure or have let yourself or your family down: not at all 7. Trouble concentrating on things, such as reading the newspaper or watching television: not at all 8. Moving or speaking so slowly that other people could have noticed. Or the opposite - being so fidgety or restless that you have been moving around a lot more than usual: not at all 9. Thoughts that you would be better off or of hurting yourself in some way: not at all Total score: 6 Source: Developed by Drs. Darrian Chavez, Charlee Mckeon, Popeye Swann and colleagues, with an educational jhon from [employer]. Thrive Questionnaire Date Thrive assessed: 02/02/25 I am a: Parent/Caregiver What is your living situation today?: I have a steady place to live Within the past 12 months, did the food you bought not last and you didn't have the money to get more?: Sometimes True Within the past 12 months, did you worry whether your food would run out before you got money to buy more?: Sometimes True Do you have trouble paying for medicines?: No Do you have trouble getting transportation to medical appointments?: No Do you have trouble paying your heating and electricity bill?: No Do you have trouble taking care of your child, family member or friend?: No Do you have trouble with day-to-day activities such as bathing, preparing meals, shopping, managing finances, etc.?: No Are you currently unemployed and looking for a job?: No Are you interested in more education?: No Please select the resources that you would like help with: Utilities Currently or been in a relationship where the following occur: No concerns reported THRIVE Score: 2 AUDIT C Alcohol Use Questionnaire (AUDIT-C) 1. How often do you have a drink containing alcohol?: Monthly or less 2. How many drinks containing alcohol do you have on a typical day when you are drinking?: 1 or 2 3. How often do you have six or more drinks on one occasion?: Never Total Score: 1 DAYANNA-7 AMB Questionnaire DAYANNA-7 Date DAYANNA - 7 assessed: 08/06/24 Feeling nervous, anxious, or on edge: 0 = Not at all Not being able to stop or control worryin = Not at all Worrying too much about different things: 1 = Several days Trouble relaxin = Several days Being so restless that it is hard to sit still: 0 = Not at all Becoming easily annoyed or irritable: 0 = Not at all Feeling afraid as if something awful might happen: 0 = Not at all Total DAYANNA-7 score (0-4 normal; 5-9 mild; 10-14 moderate; 15-21 severe): 2 Source: Developed by Drs. Darrian Chavez, Charlee Mckeon, Popeye Swann and colleagues, with an educational jhon from [employer]. Review of Systems Const Details: Const Denies chills, Denies fatigue, Denies fever(s), Denies headache(s) and Denies weakness ENT Denies dizziness and Denies headache(s) Card Denies chest pain, Denies lightheadedness, Denies dyspnea and Denies other (Palpitations) Resp Denies cough, Denies dyspnea, Denies wheezing and Denies other ( shortness of breath) GI Denies abdominal pain, Denies melena, Denies hematochezia, Denies change in bowel habits, Denies dyspepsia and Denies nausea Denies hematuria and Denies dysuria Musc Reports as per HPI Skin/Breast Denies rash, Denies unusual bruising and Denies wounds Neuro Denies abnormal gait, Denies dizziness, Denies headache(s), Denies memory loss, Denies numbness, Denies Sensory deficit (Neuro), Denies tingling and Denies weakness Psych Denies anxiety, Denies depression, Denies memory loss Endo Denies cold intolerance, Denies fatigue, Denies heat intolerance, Denies polydipsia and Denies polyuria Aller/Immun Denies wheezing Physical exam (Primary Care) Vital Signs: Last Vital Signs Temp 97.8 F 08/02/25 12:32 Pulse 96 08/02/25 12:32 Resp 16 08/02/25 12:32 BP 136/91 H 08/02/25 12:32 Pulse Ox 96 08/02/25 12:32 Oxygen Delivery Method Room Air 08/02/25 12:32 BMI result Body Mass Index 24.3 Tobacco/Smoking Status: Tobacco use Status Tobacco use date assessed 08/02/25 08/02/25 12:35 Patient Tobacco Use Status Never used Tobacco 08/02/25 12:29 e-Cigarette/Vaping Use Never Used 08/02/25 12:29 PHQ-9: PHQ-9 Score PHQ-9: Total score 6 08/02/25 14:52 Thrive Assessment: Date of Thrive Assessment Date Thrive assessed 02/02/25 08/02/25 12:29 Currently or been in a relationship where the following occur: No concerns reported Const Other: General: no acute distress and well developed Nutritional Appearance: well nourished Orientation/consciousness: patient oriented x3 HENMT Head: Yes normocephalic and Yes atraumatic Eyes General: appearance normal, both eyes and all related structures Pupils: Equal, round and reactive pupils present EOM: EOMs intact bilaterally Resp Effort & Inspection: normal respiratory effort Auscultation: clear to auscultation bilaterally Cardio Rate: regular rate Rhythm: regular rhythm Heart sounds: S1 normal heart sound present, S2 normal heart sound present, no gallops, no murmurs and no rubs GI Palpation (GI): No Abdominal aortic bruit present, Soft to palpation, nontender, No hepatosplenomegaly present and No Rebound tenderness present Auscultation: normal bowel sounds General: Yes no CVA tenderness Back/Spine/Pelvis Back: no CVA tenderness Cervical Spine: cervical ROM normal and No Cervical spine tenderness Thoracic/Lumbar Spine: thoraco-lumbar ROM normal, No pain with thoraco-lumbar ROM, No thoracic spinal tenderness and No lumbar spinal tenderness Extrem General: Yes normal to inspection, No edema and No calf tenderness. Able to flex and extend right knee, No swelling or erythema Skin General: warm and dry. Normal skin color. Normal skin turgor Neuro General: patient oriented x3, gait normal and no focal neuro deficit Cranial nerves: Yes Equal, round and reactive pupils present Cognition (Neuro): normal cognition Gait exam (Neuro): Normal gait present Sensory Exam: No Sensory deficit (Neuro) Psych Appearance: grossly normal Affect: normal affect Attitude: cooperative Thought process: Normal thought process present Coding Level of Care Code Est Pt Level 4 (66499) Diagnoses Right knee pain M25.561 Spasm of muscle of lower back M62.830 Assessment & Plan Assessment & Plan (1) Right knee pain: Code(s): M25.561 - Pain in right knee Category: Medical Plan: Normal ROM of the right knee. No swelling or erythema. Continue current treatment regimen. Follow-up with [facility] as planned. Schedule a transfer of care with a new provider within the practice in 2 months. Return sooner with symptoms or concerns. Verbalized understanding and agreed with treatment plan. (2) Spasm of muscle of lower back: Code(s): M62.830 - Muscle spasm of back Category: Medical Plan: She notes chronic back spasms for which current dose of tizanidine is not effective. She states that she is on tizanidine for both sleep disturbance and back spasms. She wants her does of tizadine increased to 8 mg twice daily (patient is currently on 8 mg twice daily); she states she has been on 8 mg once a day. She has never had PT nor has she been seen by ortho for her back spasms. She is willing to be referred to physical therapy and ortho for her back spasms. Continue current treatment regimen. Warm/cool compresses encouraged. Referred to PT and ortho. Our nurse confirmed with the pharmacy the patient is on tizanidine 8 mg twice daily. Spoke with patient's psych provider months ago who stated patient is on tizanidine for sleep. Follow-up as needed. Verbalized understanding and agreed with the plan. Orders: Orders PT Evaluation and Treatment 08/02/25 M62.830 - Muscle spasm of back Referrals Orthopedics Referral M62.830 - Muscle spasm of back Medications: Discontinued ibuprofen Discontinued Reason: Patient no longer taking 600 mg PO Q6H 30 days PRN 120 tabs 0RF low back pain
[2025-08-02 12:32] VITALS: BP 136/91; PULSE 96; RESP 16; TEMP 36.6; O2SAT 96; BMI 24.3
--- OUTSIDE RECORDS SUMMARY | 2025-08-03 00:55 | XMS_ITS | Data Portability ---
Author Organization [facility], Main Office Address [address] [place] [address] Care Team Providers Care Land Leveler Name Role Phone SHANTE EPSTEIN Primary Care Provider [facility] OTHER Assessment No assessment recorded. Plan of Treatment Reminders Order Date Submit Date Provider Last Modified By Organization Details Last Modified Time Details Appointments None record ed. Lab CBC w/ auto diff 2014 015 [email or web address] nz Not available 5 22:31:17 BMP, serum or plasma 2014 015 [email or web address] nz Not available 5 22:31:17 Referral neuros urgery referr al 2014 015 [facility], [place], [address], 5 11:25:33 Procedures None record ed. Surgeries None record ed. Imaging electr ocardi ogram 2014 015 [email or web address] nz In-Office Order, Internal Use Only DO Not Attach Compendium DO Not Attach Compendium, Do Not Delete/merge, [id number] 5 22:31:17 MRI, LS-spi ne - left lower back/ buttoc k pain with radiat ion down left leg and paraes thesia s/ leg weakne ss 2014 015 [facility] (Imaging), [address], [place], [address], 5 16:13:19 Medication Orders Dilaud id 2 mg tablet 2014 015 [facility]13275, [address], [place], [id number], 5 22:31:17 OxyCon tin 10 mg tablet ,crush resist ant,ex tended releas e 2014 015 [facility] #68678, [address], [place], [id number], 5 10:57:05 Dilaud id 2 mg tablet 2014 015 [facility] #24844, [address], [place], [id number], 5 16:11:51 Valium 10 mg tablet 2014 015 [facility] #10921, [address], [place], [id number], 5 16:11:51 oxycod one-ac etamin ophen 7.5 mg-325 mg tablet 2014 015 [facility] #27243, [address], [place], [id number], 5 10:57:05 predni sone 20 mg tablet 2014 015 [facility] #70279, [address], [place], [id number], 5 10:57:05 Valium 5 mg tablet 2014 [facility]15 [email or web address], [address], [place], [id number], 5 11:08:54 predni sone 10 mg tablet 2014 015 [email or web address] [facility] #56093, [address] [place], [place], [id number], 5 15:18:57 oxycod one-ac etamin ophen 5 mg-325 mg tablet 2014 015 [facility] #74990, [address] [place], [place], [id number], 5 15:18:57 Valium 5 mg tablet 2014 015 [email or web address] Not available 11:08:54 Patient TargetsNo targets recorded. Patient Instructions Encounter Date Encounter Id Patient Instructions Last Modified By Organization Details Last Modified Time 03/25/2015 [id number] acute low back pain: exercises [email or web address] Not available 03/25/2015 15:34:43 sciatica: exercises [email or web address] Not available 03/25/2015 15:34:43 To call or return for worsening or concerns [email or web address] Not available 03/25/2015 14:46:15 Medications were reviewed at this visit and reconciled. Changes in the active medications are reflected in the current medication list and discussed with patient with instructions for follow up as needed. Printed medication list provided to the patient as part of the visit summary.I have reviewed the note and agree with the assessment and plan of care. [email or web address] Not available 03/25/2015 15:34:43 04/08/2015 [id number] back care and preventing injuries: care instructions [email or web address] Not available 04/10/2015 20:59:44 getting back to normal after low back pain: care instructions [email or web address] Not available 04/10/2015 20:59:44 learning about relief for back pain lgladingdilorenz Not available 04/10/2015 20:59:44 04/15/2015 [id number] back pain: care instructions [email or web address] Not available 04/15/2015 16:11:51 To call or return for worsening or concerns [email or web address] Not available 04/15/2015 11:05:20 Medications were reviewed at this visit and reconciled. Changes in the active medications are reflected in the current medication list and discussed with patient with instructions for follow up as needed. Printed medication list provided to the patient as part of the visit summary.I have reviewed the note and agree with the assessment and plan of care. lgladingdilorenz Not available 04/15/2015 16:11:51 04/29/2015 [id number] To call or return for worsening or concerns [email or web address] Not available 04/29/2015 11:09:47 Medications were reviewed at this visit and reconciled. Changes in the active medications are reflected in the current medication list and discussed with patient with instructions for follow up as needed. Printed medication list provided to the patient as part of the visit summary. Discussion as above > 50% appointment time spent counseling and coordinating care: total time 25minutesI have reviewed the note and agree with the assessment and plan of care. [email or web address] Not available 04/30/2015 12:40:49 Reason for Referral Neurosurgery Referral for Pr e-surgery evaluation Referring Physician: Shante Epstein, Family Medicine, Encounter Date: 05/25/2015 Results Created Date Observation Date Name Description Value Unit Range Abnormal Flag Note LastModifiedBy Organization Detail LastModifiedTime 05/25/2005/25/2015 elect rocar diogr am Rate & Rhythm Not Available In-Off ice Order Internal Use Only DO Not Attach Compendium DO Not Attach Compendium, Do Not Delete/merge, [id number] 05/25/2015 15:21:36 05/25/2005/25/2015 elect rocar diogr am QRS Not Available In-Office Order Internal Use Only DO Not Attach Compendium DO Not Attach Compendium, Do Not Delete/merge, [id number] 05/25/2015 15:21:36 05/25/2005/25/2015 elect rocar diogr am AR Interval Not Available In-Off ice Order Internal Use Only DO Not Attach Compendium DO Not Attach Compendium, Do Not Delete/merge, [id number] 05/25/2015 15:21:36 05/25/2005/25/2015 elect rocar diogr am QRS Duration Not Available In-Of fice Order Internal Use Only DO Not Attach Compendium DO Not Attach Compendium, Do Not Delete/merge, 05/25/2015 15:21:36 05/25/2005/25/2015 anastacio mcguire diogr am QT Interval Not Available In-Off ice Order Internal Use Only DO Not Attach Compendium DO Not Attach Compendium, Do Not Delete/merge, 05/25/2015 15:21:36 05/25/2005/25/2015 CBC w/ auto diff WBC 7.8 K/mm3 (4.0-1 1.0) Not Available [facility] (Centralized Electronic Ordering - All Locations) Patient Can Go To The Location Of Their Choice, 05/25/2015 21:07:12 05/25/2005/25/2015 CBC w/ auto diff RBC 4.54 M/mm3 (4.20- 5.40) Not Available [facility] (Centralized Electronic Ordering - All Locations) Patient Can Go To The Location Of Their Choice, 05/25/2015 21:07:12 05/25/2005/25/2015 CBC w/ auto diff HGB 13.9 gm/dL (12.0- 16.0) Not Available [facility] (Centralized Electronic Ordering - All Locations) Patient Can Go To The Location Of Their Choice, 05/25/2015 21:07:12 05/25/2005/25/2015 CBC w/ auto diff HCT 42.4 % (37.0- 47.0) Not Available [facility] (Centralized Electronic Ordering - All Locations) Patient Can Go To The Location Of Their Choice, 05/25/2015 21:07:12 05/25/2005/25/2015 CBC w/ auto diff MCV 93.4 fL (80.0- 100.0) Not Available [facility] (Centralized Electronic Ordering - All Locations) Patient Can Go To The Location Of Their Choice, 05/25/2015 21:07:12 05/25/2005/25/2015 CBC w/ auto diff MCH 30.6 pg (27.0- 34.0) Not Available [facility] (Centralized Electronic Ordering - All Locations) Patient Can Go To The Location Of Their Choice, 05/25/2015 21:07:12 05/25/2005/25/2015 CBC w/ auto diff MCHC 32.8 % (33.0- 37.0) low Not Available [facility] (Centralized Electronic Ordering - All Locations) Patient Can Go To The Location Of Their Choice, 05/25/2015 21:07:12 05/25/2005/25/2015 CBC w/ auto diff plt 502 K/mm3 (150-4 60) high Not Available [facility] (Centralized Electronic Ordering - All Locations) Patient Can Go To The Location Of Their Choice, 05/25/2015 21:07:12 05/25/2005/25/2015 CBC w/ auto diff RDW-SD 43.5 fL (<47.0 ) Not Available [facility] (Centralized Electronic Ordering - All Locations) Patient Can Go To The Location Of Their Choice, [id number] 05/25/2015 21:07:12 05/25/2005/25/2015 CBC w/ auto diff MPV 10.0 fL (9.4-1 2.4) Not Available [facility] (Centralized Electronic Ordering - All Locations) Patient Can Go To The Location Of Their Choice, [id number] 05/25/2015 21:07:12 05/25/2005/25/2015 CBC w/ auto diff automated NRBC 0.0 #/100 _WBC' s Not Available [facility] (Centralized Electronic Ordering - All Locations) Patient Can Go To The Location Of Their Choice, 05/25/2015 21:07:12 05/25/2005/25/2015 CBC w/ auto diff abs. NRBC 0.0 K/mm3 Not Available [facility] (Centralized Electronic Ordering - All Locations) Patient Can Go To The Location Of Their Choice, 05/25/2015 21:07:12 05/25/2005/25/2015 CBC w/ auto diff neut # 4.4 K/mm3 (1.3-7 .0) Not Available [facility] (Centralized Electronic Ordering - All Locations) Patient Can Go To The Location Of Their Choice, 05/25/2015 21:07:12 05/25/2005/25/2015 CBC w/ auto diff lymph # 2.8 K/mm3 (0.8-3 .1) Not Available [facility] (Centralized Electronic Ordering - All Locations) Patient Can Go To The Location Of Their Choice, 05/25/2015 21:07:05/25/2005/25/2015 CBC w/ auto diff mono# 0.6 K/mm3 (0.4-0 .9) Not Available [facility] (Centralized Electronic Ordering - All Locations) Patient Can Go To The Location Of Their Choice, 05/25/2015 21:07:05/25/2005/25/2015 CBC w/ auto diff eo # 0.0 K/mm3 (0.0-0 .4) Not Available [facility] (Centralized Electronic Ordering - All Locations) Patient Can Go To The Location Of Their Choice, 05/25/2015 21:07:05/25/2005/25/2015 CBC w/ auto diff baso # 0.1 K/mm3 (0.0-0 .1) Not Available [facility] (Centralized Electronic Ordering - All Locations) Patient Can Go To The Location Of Their Choice, 05/25/2015 21:07:05/25/2005/25/2015 CBC w/ auto diff abs. imm gran 0.0 K/mm3 Not Available [facility] (Centralized Electronic Ordering - All Locations) Patient Can Go To The Location Of Their Choice, 05/25/2015 21:07:05/25/2005/25/2015 CBC w/ auto diff neut 55.8 % (44-76 ) Not Available [facility] (Centralized Electronic Ordering - All Locations) Patient Can Go To The Location Of Their Choice, 05/25/2015 21:07:05/25/2005/25/2015 CBC w/ auto diff lymph 35.9 % (15-43 ) Not Available [facility] (Centralized Electronic Ordering - All Locations) Patient Can Go To The Location Of Their Choice, 05/25/2015 21:07:05/25/2005/25/2015 CBC w/ auto diff monocyte 7.0 % (4.5-1 0.5) Not Available [facility] (Centralized Electronic Ordering - All Locations) Patient Can Go To The Location Of Their Choice, 05/25/2015 21:07:05/25/2005/25/2015 CBC w/ auto diff eo 0.0 % (0-6) Not Available [facility] (Centralized Electronic Ordering - All Locations) Patient Can Go To The Location Of Their Choice, 05/25/2015 21:07:05/25/2005/25/2015 CBC w/ auto diff baso 1.0 % (0-2) Not Available [facility] (Centralized Electronic Ordering - All Locations) Patient Can Go To The Location Of Their Choice, 05/25/2015 21:07:05/25/2005/25/2015 CBC w/ auto diff imm gran 0.3 % (0.0-0 .6) Not Available [facility] (Centralized Electronic Ordering - All Locations) Patient Can Go To The Location Of Their Choice, 05/25/2015 21:07:05/25/2005/25/2015 BMP, serum or plasm a glucose 85 mg/dL (70-99 ) Not Available [facility] (Centralized Electronic Ordering - All Locations) Patient Can Go To The Location Of Their Choice, 05/25/2015 21:43:05/25/2005/25/2015 BMP, serum or plasm a BUN 20 mg/dL (6-20) Not Available [facility] (Centralized Electronic Ordering - All Locations) Patient Can Go To The Location Of Their Choice, 05/25/2015 21:43:05/25/2005/25/2015 BMP, serum or plasm a creatinine 1.0 mg/dL (0.5-1 .0) Not Available [facility] (Centralized Electronic Ordering - All Locations) Patient Can Go To The Location Of Their Choice, 05/25/2015 21:43:05/25/2005/25/2015 BMP, serum or plasm a sodium 142 mmol/ L (133-1 45) Not Available [facility] (Centralized Electronic Ordering - All Locations) Patient Can Go To The Location Of Their Choice, 05/25/2015 21:43:05/25/2005/25/2015 BMP, serum or plasm a potassium 4.5 mmol/ L (3.6-5 .2) Not Available [facility] (Centralized Electronic Ordering - All Locations) Patient Can Go To The Location Of Their Choice, 05/25/2015 21:43:05/25/2005/25/2015 BMP, serum or plasm a chloride 101 mmol/ L (98-10 7) Not Available [facility] (Centralized Electronic Ordering - All Locations) Patient Can Go To The Location Of Their Choice, 05/25/2015 21:43:05/25/2005/25/2015 BMP, serum or plasm a bicarbonate 27 mmol/ L (22-29 ) Not Available [facility] (Centralized Electronic Ordering - All Locations) Patient Can Go To The Location Of Their Choice, 05/25/2015 21:43:05/25/2005/25/2015 BMP, serum or plasm a anion gap 14 (4-17) Not Available [facility] (Centralized Electronic Ordering - All Locations) Patient Can Go To The Location Of Their Choice, 05/25/2015 21:43:05/25/2005/25/2015 BMP, serum or plasm a calcium 10.0 mg/dL (8.6-1 0.5) Not Available [facility] (Centralized Electronic Ordering - All Locations) Patient Can Go To The Location Of Their Choice, 05/25/2015 21:43:05/25/2005/25/2015 BMP, serum or plasm a est GFR non 60 mL/mi n/1.7 3_M2 THE MDRD STUDY 'S ESTIM ATED GFR EQUAT ION HAS NOT BEEN VALID ATED IN CHILD NIKA (<18 YRS), PREGN ANT WOMEN , THE ELDER LY (AGE >70 YRS), RACIA L OR ETHNI C SUBGR OUPS OTHER THAN CAUCA SIANS AND AFRIC AN AMERI CANS. Not Available [facility] (Centralized Electronic Ordering - All Locations) Patient Can Go To The Location Of Their Choice, 05/25/2015 21:43:05/25/2005/25/2015 BMP, serum or plasm a est GFR >60 mL/mi n/1.7 3_M2 THE MDRD STUDY 'S ESTIM ATED GFR EQUAT ION HAS NOT BEEN VALID ATED IN CHILD NIKA (<18 YRS), PREGN ANT WOMEN , THE ELDER LY (AGE >70 YRS), RACIA L OR ETHNI C SUBGR OUPS OTHER THAN CAUCA SIANS AND AFRIC AN AMERI CANS. Not Available [facility] (Centralized Electronic Ordering - All Locations) Patient Can Go To The Location Of Their Choice, [id number] 05/25/2015 21:43:11 04/03/20 15 04/03/2015 MRI lumba r spine w/o contr ast MRI of the lumbar spine HISTOR Y: Lower back pain and left buttoc k/leg pain. TECHNI QUE: MRI of the lumbar spine was perfor med using the follow ing sequen sylvia: Sagitt al T1, STIR, and sagitt al 3-D T2 space sequen ce with axial reform atted images . COMPAR CATHI: None availa ble. FINDIN GS: Verteb ral body height , curvat ure, and alignm ent is normal . There is mild disc desicc ation at L4-5 and L5-S1 withou t signif icant disc space narrow ing. Bone marrow signal is normal . The conus termin ates at T12-L1 . From L1 to L4 there is no signif icant disc bulge, canal stenos is, or neural forami nal compro mise. At L4-5 there is a mild diffus e disc bulge with superi mposed small centra l protru rossy as well as mild facet spurri ng. There is no signif icant canal stenos is though there is mild crowdi ng of the L5 nerve roots. No signif icant neural forami nal stenos is is noted. At L5-S1 there is a large left parace ntral protru rossy that imping es on the descen ding left S1 nerve root. Bilate ral facet spurri ng is also seen. There is no signif icant stenos is centra lly in the canal. The right neural forame n is patent . Left-s ided protru rossy partia lly encroa ches on the left neural forame n causin g only minima l left neural forami nal stenos is. The visual ized rectum . No soft tissue s are grossl y unrema rkable . IMPRES ROSSY: There is a large left parace ntral protru rossy at L5-S1 that imping es on the descen ding left S1 nerve root. Minima l degene rative diseas e is also seen at L4-5 as detail ed above. Dictat ed By: Renetta taylor MD , Kalani Uriarte Dictat ed Date/T ross: 2:50 pm Review ed By: Kalani Hudson MD Signed By: Kalani Hudson MD Signed Date/T ross: 2:50 pm Transc ribed By: DEEDEE Transc ribed Date/T ross: 2:50 pm Patien t Class: Outpat ient build [facility] (Centralized Electronic Ordering - All Locations) Patient Can Go To The Location Of Their Choice, [id number] 08/24/2015 04:10:40 04/19/20 15 04/03/2015 MRI, LS-sp ine No observ ation record ed. [email or web address] Not Available 2014 16:23:47 05/04/20 15 05/04/2015 imagi ng/di agnos tic resul t No observ ation record ed. [email or web address] [facility]) [address], [place], [address], 07/21/2015 16:07:10 05/25/20 15 elect rocar diogr am No observ ation record ed. [email or web address] z Not Available 05/29/2015 22:27:33 05/25/20 15 elect rocar diogr am No observ ation record ed. [email or web address] z Not Available 05/29/2015 22:27:33 Result Notes None recorded. Problems Name Problem SNOMED Code Status Onset Date Resolution Date Notes Provider Name and Address Organization Details Recorded Time Anxiety state 710958569 Active DRISS Worthington [address], [place], [address] , [facility] 5 13:48:28 Patient status finding 736314739 Active DRISS Worthington [address], [place], [address] , [facility] 5 13:48:28 Backache 627800630 Active Shante lópez, [facility] 5 17:45:58 Fibromyo sitis 65220071 Active DRISS Worthington [address] [address], [place], [address] , [facility] 5 13:48:28 Insomnia 717934530 Active IMPRESSI ON: PT WITH SEVERE INSOMNIA , MAY NEED AMBIEN 10MG DOSE, PT IS WRNED TO ALLWO 10 HOURS BEFORE DOING ANY DRIVING AFTER TAKING AMBIEN Loni Watkins, [facility] [address] [address], [place], [address] , [facility] 5 13:48:28 Screenin g for malignan t neoplasm of cervix Active Loni Watkins, [facility] [address] [address], [place], [address] , [facility] 5 13:48:28 Osteoart hritis of knee 109822615 Active RIGHT; DR JIMENEZ; Loni Watkins, [facility] [address] [address], [place], [address] , [facility] 5 13:48:28 Acute pharyngi tis 208786708 Active Shante lópez, [facility] 4 21:57:11 Headache 79308813 Active Tomas Waggoner MD [address] [address], [place], [address] , [facility] 4 13:33:42 Low back pain 475577631 Active Shante Kasper-Tatiana merrilladalgisa rene, [facility] 5 10:44:54 Chronic back pain 759481886 Active Loni Watkins, [facility] [address] [address], [place], [address] , [facility] 5 11:40:14 Interver tebral disc prolapse 77957390 Active Shante lópez, [facility] 5 22:31:17 Administ ration of bacteria l and viral vaccine Completed 201103/30/2014 RECORDED 10/05/19 12 1:05PM BY GITA BENSON, OFFICE VISIT Not Available [facility] 4 14:49:08 Administ ration of bacteria l and viral vaccine Completed 201104/22/2014 RECORDED 10/05/19 12 1:05PM BY GITA BENSON, OFFICE VISIT Not Available [facility] 4 13:00:18 Administ ration of bacteria l and viral vaccine Completed 201104/23/2014 RECORDED 10/05/19 12 1:05PM BY GITA BENSON, OFFICE VISIT Not Available [facility] 4 03:50:51 Screenin g for malignan t neoplasm of breast Completed 201103/30/2014 RECORDED 08/16/20 12 11:22AM BY HERMAN MCKEON I ANNOTATI ON/ADDEN DUM Not Available [facility] 4 14:49:07 Malaise and fatigue 689181844 Completed 201103/30/2014 IMPRESSI ON: X 1 WEEK WITH MILD VERTIGO LIKE SXS. NO F/C, NO OTHER UR SXS, RASHES OR JT/MUSCL E PAIN/INV OLVEMENT . EVAL LAST WEEK BY KM FOR PROLONGE D VAGINAL BLEEDING , SINCE HAS STOPPED, NL CBC. EXAM TODAY WAS OVERALL NL. THIS WAS DISCUSSE D WITH PCP, WHO SAW / EVAL PT WELL. WE ARE BOTH IN AGREEMEN T THAT THIS IS LIKELY VIRAL, WILL REST, PUSH FLUIDS. SHOULD SXS CONTINUE X ANOTHER 1-2 WEEKS WILL CHECK LABS. PT TO CALL SOONER PRN.; RECORDED 08/16/20 12 11:22AM BY HERMAN MCKEON I ANNOTATI ON/ADDEN DUM Not Available [facility] 4 14:49:08 Female genital organ symptoms 808134382 Completed 201103/30/2014 RECORDED 08/16/20 12 11:21AM BY HERMAN MCKEON I ANNOTATI ON/ADDEN DUM Not Available [facility] 4 14:49:08 Noninfla mmatory disorder of the vagina 43654242 Completed 201103/30/2014 RECORDED 08/16/20 12 11:22AM BY HERMAN MCKEON I ANNOTATI ON/ADDEN DUM Not Available [facility] 4 14:49:08 Varicose veins of lower extremit y 04911127 Completed 201103/30/2014 RECORDED 08/16/20 12 11:22AM BY HERMAN MCKEON I ANNOTATI ON/ADDEN DUM Not Available [facility] 4 14:49:09 Screenin g for malignan t neoplasm of breast Completed 201104/22/2014 RECORDED 08/16/20 12 11:22AM BY HERMAN MCKEON I ANNOTATI ON/ADDEN DUM Not Available [facility] 4 13:00:17 Malaise and fatigue 456998058 Completed 201104/22/2014 IMPRESSI ON: CONTINUE CELEXA; RECORDED 08/16/20 12 11:22AM BY HERMAN MCKEON I ANNOTATI ON/ADDEN DUM Not Available [facility] 4 13:00:18 Female genital organ symptoms 443275770 Completed 201104/22/2014 RECORDED 08/16/20 12 11:21AM BY HERMAN MCKEON I ANNOTATI ON/ADDEN DUM Not Available [facility] 4 13:00:18 Screenin g for malignan t neoplasm of cervix Completed 201104/22/2014 RECORDED 08/16/20 12 11:22AM BY HERMAN MCKEON I ANNOTATI ON/ADDEN DUM Not Available [facility] 4 13:00:18 Noninfla mmatory disorder of the vagina 16169263 Completed 201104/22/2014 RECORDED 08/16/20 12 11:22AM BY HERMAN MCKEON I ANNOTATI ON/ADDEN DUM Not Available [facility] 4 13:00:18 Varicose veins of lower extremit y 41167789 Completed 201104/22/2014 RECORDED 08/16/20 12 11:22AM BY HERMAN MCKEON I ANNOTATI ON/ADDEN DUM Not Available [facility] 4 13:00:18 Screenin g for malignan t neoplasm of breast Completed 201104/23/2014 RECORDED 08/16/20 12 11:22AM BY ALEKSANDRA BROWNATI ON/ADDEN DUM Not Available [facility] 4 03:50:51 Malaise and fatigue 764990268 Completed 201104/23/2014 IMPRESSI ON: CONTINUE CELEXA; RECORDED 08/16/20 12 11:22AM BY HERMAN MCKEON I ANNOTATI ON/ADDEN DUM Not Available [facility] 4 03:50:51 Female genital organ symptoms 430399791 Completed 201104/23/2014 RECORDED 08/16/20 12 11:21AM BY ALEKSANDRA BROWNATI ON/ADDEN DUM Not Available [facility] 4 03:50:51 Screenin g for malignan t neoplasm of cervix Completed 201104/23/2014 RECORDED 08/16/20 12 11:22AM BY ALEKSANDRA BROWNATI ON/ADDEN DUM Not Available [facility] 4 03:50:51 Noninfla mmatory disorder of the vagina 78810245 Completed 201104/23/2014 RECORDED 08/16/20 12 11:22AM BY ALEKSANDRA BROWNATI ON/ADDEN DUM Not Available [facility] 4 03:50:51 Varicose veins of lower extremit y 36192219 Completed 201104/23/2014 RECORDED 08/16/20 12 11:22AM BY ALEKSANDRA BROWNATI ON/ADDEN DUM Not Available [facility] 4 03:50:51 Screenin g for malignan t neoplasm of cervix Completed 201303/30/2014 RECORDED 12/12/19 14 11:24AM BY JUANITA CALLOWAY MA, ALEKSANDRAATI ON/ADDEN DUM Not Available [facility] 4 14:49:07 Single major depressi ve episode Completed 201303/30/2014 IMPRESSI ON: START MEDS FOR TX, NOT ON ANY ULTRAM PER PHARMACY ; RECORDED 12/12/19 14 11:24AM BY JUANITA CALLOWAY MA, ANNOTATI ON/ADDEN DUM Not Available [facility] 4 14:49:07 Adult health examinat ion Completed 201303/30/2014 IMPRESSI ON: PAP AND MAMMO UTD, PT WILL STARTW ITH REGULAR EXERCISE ADN YOGA TO HELP WITH FIBROMYA LGIA; RECORDED 12/12/19 14 11:24AM BY JUANITA CALLOWAY MA, ANNOTATI ON/ADDEN DUM Not Available [facility] 4 14:49:08 Laborato ry procedur e performe d [id number] Completed 201303/30/2014 RECORDED 12/12/19 14 11:24AM BY JUANITA CALLOWAY MA, ALEKSANDRAATI ON/ADDEN DUM Not Available [facility] 4 14:49:08 Shoulder joint pain [id number] Completed 201303/30/2014 IMPRESSI ON: PT TO GET PT AND IS BEING SEEN BY ORTHO; RECORDED 12/12/19 14 11:24AM BY JUANITA CALLOWAY MA, ANNOTATI ON/ADDEN DUM Not Available [facility] 4 14:49:08 Pain of joint of wrist 065062268 Completed 201303/30/2014 RECORDED 12/12/19 14 11:24AM BY JUANITA CALLOWAY MA, ANNOTATI ON/ADDEN DUM Not Available [facility] 4 14:49:08 Pain in limb 51232273 Completed 201303/30/2014 IMPRESSI ON: UNCLEAR CAUSE. WITH EDEMA AND PAIN NEED TO R/O DVT. NO EVIDENCE POPLITEA L ANEURYSM . COULD BE NERVE RELATED OR PAIN FROM SPINE. WILL REFER TO PSSP TO FURTHER ASSESS. DOPPLER TODAY. TOLD PT URGENCY OF THIS AND SHE UNDERSTA NDS.; RECORDED 12/12/19 14 11:24AM BY JUANITA CALLOWAY MA, ALEKSANDRAATI ON/ADDEN DUM Not Available [facility] 4 14:49:08 Joint pain in ankle and foot Completed 201303/30/2014 IMPRESSI ON: 4TH AND 5TH METATARS AL PAIN. REPORTED LY NORMAL X-RAY. UNCLEAR CAUSE. SHE IS ALREADY BEING REFERRED FOR THE RIGHT LEG PAIN TO PSSP. I OFFERED EITHER PODIATRI ST OR ANKLE SURGEON SECOND REFERRAL OR TO START WITH PSSP ALSO EVALUATI NG FOOT. SHE WOULD LIKE TO START WITH PSSP LOOKING AT FOOT FIRST. SHE WILL GET COPY OF THE X-RAY THAT WAS TAKEN AT HER JOB; RECORDED 12/12/19 14 11:24AM BY JUANITA CALLOWAY MA, ALEKSANDRAATI ON/ADDEN DUM Not Available [facility] 4 14:49:08 Knee pain Completed 201303/30/2014 IMPRESSI ON: [facility], PT TO TAKE PAIN MEDS SPARINGL Y, KNOWS NOT TO DRIVE WHEN TAKING THEM AND IT IS A SHORT TERM PLAN; RECORDED 12/12/19 14 11:24AM BY JUANITA CALLOWAY MA, ALEKSANDRAATI ON/ADDEN DUM Not Available [facility] 4 14:49:08 Single major depressi ve episode Completed 201304/22/2014 IMPRESSI ON: START MEDS FOR TX, NOT ON ANY ULTRAM PER PHARMACY ; RECORDED 12/12/19 14 11:24AM BY JUANITA CALLOWAY MA, ANNOTATI ON/ADDEN DUM Not Available [facility] 4 13:00:17 Adult health examinat ion Completed 201304/22/2014 IMPRESSI ON: PAP AND MAMMO UTD, PT WILL STARTW ITH REGULAR EXERCISE ADN YOGA TO HELP WITH FIBROMYA LGIA; RECORDED 12/12/19 14 11:24AM BY JUANITA CALLOWAY MA, ANNOTATI ON/ADDEN DUM Not Available [facility] 4 13:00:17 Laborato ry procedur e performe d [id number] Completed 201304/22/2014 RECORDED 12/12/19 14 11:24AM BY JUANITA CALLOWAY MA, ANNOTATI ON/ADDEN DUM Not Available [facility] 4 13:00:17 Shoulder joint pain 530580533 Completed 201304/22/2014 IMPRESSI ON: PT TO GET PT AND IS BEING SEEN BY ORTHO; RECORDED 12/12/19 14 11:24AM BY JUANITA CALLOWAY MA, ANNOTATI ON/ADDEN DUM Not Available [facility] 4 13:00:17 Pain of joint of wrist 418610007 Completed 201304/22/2014 RECORDED 12/12/19 14 11:24AM BY JUANITA CALLOWAY MA, ANNOTATI ON/ADDEN DUM Not Available [facility] 4 13:00:17 Pain in limb 42011877 Completed 201304/22/2014 IMPRESSI ON: UNCLEAR CAUSE. WITH EDEMA AND PAIN NEED TO R/O DVT. NO EVIDENCE POPLITEA L ANEURYSM . COULD BE NERVE RELATED OR PAIN FROM SPINE. WILL REFER TO PSSP TO FURTHER ASSESS. DOPPLER TODAY. TOLD PT URGENCY OF THIS AND SHE UNDERSTA NDS.; RECORDED 12/12/19 14 11:24AM BY JUANITA CALLOWAY MA, ANNOTATI ON/ADDEN DUM Not Available [facility] 4 13:00:18 Joint pain in ankle and foot Completed 201304/22/2014 IMPRESSI ON: 4TH AND 5TH METATARS AL PAIN. REPORTED LY NORMAL X-RAY. UNCLEAR CAUSE. SHE IS ALREADY BEING REFERRED FOR THE RIGHT LEG PAIN TO PSSP. I OFFERED EITHER PODIATRI ST OR ANKLE SURGEON SECOND REFERRAL OR TO START WITH PSSP ALSO EVALUATI NG FOOT. SHE WOULD LIKE TO START WITH PSSP LOOKING AT FOOT FIRST. SHE WILL GET COPY OF THE X-RAY THAT WAS TAKEN AT HER JOB; RECORDED 12/12/19 14 11:24AM BY JUANITA CALLOWAY MA, ALEKSANDRAATI ON/ADDEN DUM Not Available [facility] 4 13:00:18 Knee pain Completed 201304/22/2014 IMPRESSI ON: [facility], PT TO TAKE PAIN MEDS SPARINGL Y, KNOWS NOT TO DRIVE WHEN TAKING THEM AND IT IS A SHORT TERM PLAN; RECORDED 12/12/19 14 11:24AM BY JUANITA CALLOWAY MA, ALEKSANDRAATI ON/ADDEN DUM Not Available [facility] 4 13:00:18 Single major depressi ve episode Completed 201304/23/2014 IMPRESSI ON: START MEDS FOR TX, NOT ON ANY ULTRAM PER PHARMACY ; RECORDED 12/12/19 14 11:24AM BY JUANITA CALLOWAY MA, ANNOTATI ON/ADDEN DUM Not Available [facility] 4 03:50:51 Adult health examinat ion Completed 201304/23/2014 IMPRESSI ON: PAP AND MAMMO UTD, PT WILL STARTW ITH REGULAR EXERCISE ADN YOGA TO HELP WITH FIBROMYA LGIA; RECORDED 12/12/19 14 11:24AM BY JUANITA CALLOWAY MA, ANNOTATI ON/ADDEN DUM Not Available [facility] 4 03:50:51 Laborato ry procedur e performe d [id number] Completed 201304/23/2014 RECORDED 12/12/19 14 11:24AM BY JUANITA CALLOWAY MA, ANNOTATI ON/ADDEN DUM Not Available [facility] 4 03:50:51 Shoulder joint pain 840079104 Completed 201304/23/2014 IMPRESSI ON: PT TO GET PT AND IS BEING SEEN BY ORTHO; RECORDED 12/12/19 14 11:24AM BY JUANITA CALLOWAY MA, ANNOTATI ON/ADDEN DUM Not Available [facility] 4 03:50:51 Pain of joint of wrist 483250168 Completed 201304/23/2014 RECORDED 12/12/19 14 11:24AM BY JUANITA CALLOWAY MA, ANNOTATI ON/ADDEN DUM Not Available [facility] 4 03:50:51 Pain in limb 43040678 Completed 201304/23/2014 IMPRESSI ON: UNCLEAR CAUSE. WITH EDEMA AND PAIN NEED TO R/O DVT. NO EVIDENCE POPLITEA L ANEURYSM . COULD BE NERVE RELATED OR PAIN FROM SPINE. WILL REFER TO PSSP TO FURTHER ASSESS. DOPPLER TODAY. TOLD PT URGENCY OF THIS AND SHE UNDERSTA NDS.; RECORDED 12/12/19 14 11:24AM BY JUANITA CALLOWAY MA, ANNOTATI ON/ADDEN DUM Not Available [facility] 4 03:50:51 Joint pain in ankle and foot Completed 201304/23/2014 IMPRESSI ON: 4TH AND 5TH METATARS AL PAIN. REPORTED LY NORMAL X-RAY. UNCLEAR CAUSE. SHE IS ALREADY BEING REFERRED FOR THE RIGHT LEG PAIN TO PSSP. I OFFERED EITHER PODIATRI ST OR ANKLE SURGEON SECOND REFERRAL OR TO START WITH PSSP ALSO EVALUATI NG FOOT. SHE WOULD LIKE TO START WITH PSSP LOOKING AT FOOT FIRST. SHE WILL GET COPY OF THE X-RAY THAT WAS TAKEN AT HER JOB; RECORDED 12/12/19 14 11:24AM BY JUANITA CALLOWAY MA, ANNOTATI ON/ADDEN DUM Not Available [facility] 4 03:50:51 Knee pain Completed 201304/23/2014 IMPRESSI ON: WAKING PT UP AT [facility], PT TO TAKE PAIN MEDS SPARINGL Y, KNOWS NOT TO DRIVE WHEN TAKING THEM AND IT IS A SHORT TERM PLAN; RECORDED 12/12/19 14 11:24AM BY JUANITA CALLOWAY MA, ANNOTATI ON/ADDEN DUM Not Available [facility] 4 03:50:51 Low back pain [id number] Completed 201303/30/2014 IMPRESSI ON: TRY DOING LYRICA 75MG MORNING AND AFTERNOO N AND 150MG AT NIGHT UNTIL THE PAIN IS BETTER. SWITCH FROM IBUPROFE N TO MELOXICA M; RECORDED 12/22/19 14 9:55AM BY JUANITA CALLOWAY MA, ANNOTATI ON/ADDEN DUM Not Available [facility] 4 14:49:08 Low back pain 148631231 Completed 201304/22/2014 IMPRESSI ON: TRY DOING LYRICA 75MG MORNING AND AFTERNOO N AND 150MG AT NIGHT UNTIL THE PAIN IS BETTER. SWITCH FROM IBUPROFE N TO MELOXICA M; RECORDED 12/22/19 14 9:55AM BY JUANITA CALLOWAY MA, ANNOTATI ON/ADDEN DUM Not Available [facility] 4 13:00:18 Low back pain [id number] Completed 201304/23/2014 IMPRESSI ON: TRY DOING LYRICA 75MG MORNING AND AFTERNOO N AND 150MG AT NIGHT UNTIL THE PAIN IS BETTER. SWITCH FROM IBUPROFE N TO MELOXICA M; RECORDED 12/22/19 14 9:55AM BY JUANITA CALLOWAY MA, ANNOTATI ON/ADDEN DUM Not Available [facility] 4 03:50:51 Problem Notes None recorded. Medical Equipment None Reported. Allergies Allergen ID Allergen Name Allergen Category Reaction Reaction Severity Criticality Documentation Date Start Date Code Code System Note Provider Name and Address Organization Details Recorded Time 3107 chicken derived food Not available Not available Not available 03/30/20142013 REACT ION: BREAK S OUT LIKE CHICK EN POX; Giat Benson MA [facility] 5 15:20:27 Medications Name Sig Start Date Stop Date Status Note LastModified by Organization Details LastModified Time cyclobenz aprine 10 mg tablet TAKE 1 TABLET BY MOUTH EVERY NIGHT AT BEDTIME NEEDED FOR SPASM active Not Available Not Available No t Available prednison e 10 mg tablet 5 tabs day 14 tabs day 23 tabs day 32 tabs day 41 tab day 5Take by oral route. 2014 active Not Available Not Available Not Avai lable Dilaudid 2 mg tablet Take 1 tablet 5 times a day by oral route as needed for 10 days. 2014 active Not Available Not Available Not Avai lable trazodone 50 mg tablet DAILY 2012 active RECORDED 01/06/20 13 12:58PM BY GITA BENSON, OFFICE VISIT; Not Available Not Available Not Available meloxicam 15 mg tablet DAILY 2013 active RECORDED 01/09/20 14 11:11PM BY SHANTE Lawton MD, REFILL REQUEST; Not Available Not Available Not Available prednison e 20 mg tablet Take 2 tablets every day by oral route for 5 days. 2014 active Not Available Not Available Not Avai lable quetiapin e 100 mg tablet one a day 2014 active Pt requests refill Not Available Not Available Not Available Imitrex 50 mg tablet Take 1 tablet twice a day by oral route. 2013 active Not Available Not Available Not Avai lable oxycodone -acetamin ophen 5 mg-325 mg tablet Take 1 tablet every 6 hours by oral route as directed for 5 days. 2014 active Patient on her way here; in too much pain can't go thru weekend w/out pain meds - is all out Not Available Not Available Not Available alprazola m 0.5 mg tablet Take 2 tablets as needed by oral route before head ct for 1 day. 06/24 completed Not Available Not Available Not Available citalopra m 20 mg tablet DAILY 06/15 completed RECORDED 06/15/20 11 10:01AM BY JACKI STEVENS MA, OFFICE VISIT; Not Available Not Available Not Available Valium 5 mg tablet Take 1 tablet twice a day by oral route as needed for 10 days. 2014 active is all out; MRI is on 04/04/15 Not Available Not Available Not Available prednison e 50 mg tablet Take 1 tablet every day by oral route for 5 days. 06/29 completed Not Available Not Available Not Available Transderm -Scop 1 mg over 3 days transderm al patch Apply 1 patch every 72 hours by transder mal route for 9 days. 07/05 completed Not Available Not Available Not Available lorazepam 1 mg tablet Take 1 tablet by oral route. 2014 active Pt requests refill Not Available Not Available Not Available diazepam 10 mg tablet TAKE 1 TABLET BY MOUTH TWICE DAILY NEEDED 2014 active Not Available Not Available Not Avai lable oxycodone -acetamin ophen 7.5 mg-325 mg tablet Take 2 tablets every 4-6 hours by oral route as needed for 7 days. 2014 active Not Available Not Available Not Avai lable zolpidem 10 mg tablet TAKE 1 TABLET BY MOUTH EVERY DAY AT BEDTIME. 2014 active Not Available Not Available Not Avai lable sertralin e 50 mg tablet DAILY 2013 active RECORDED 12/10/19 14 12:38PM BY SHANTE Lawton MD, REFILL REQUEST; Not Available Not Available Not Available Lyrica 75 mg capsule TAKE ONE CAPSULE BY MOUTH TWICE DAILY active Not Available Not Available No t Available zolpidem ER 12.5 mg tablet,ex tended release,m lisatipgilberto [facility] PRN INSOMNIA 12/02 completed RECORDED 12/03/19 12 9:58AM BY GITA BENSON, OFFICE VISIT; Not Available Not Available Not Available calcium acetate(p hosphat bind) DAILY active RECORDED 12/22/19 14 9:55AM BY JUANITA CALLOWAY MA, OFFICE VISIT; Not Available Not Available Not Available Daily Multi Vitamin/M inerals DAILY active RECORDED 12/22/19 14 9:55AM BY JUANITA CALLOWAY MA, OFFICE VISIT; Not Available Not Available Not Available EpiPen 2-Niko NEEDED FOR ANAPHYLA XIS 2009 active RECORDED 12/22/19 14 9:55AM BY JUANITA CALLOWAY MA, OFFICE VISIT; Not Available Not Available Not Available Fioricet 50 mg-300 mg-40 mg capsule Take 1 capsule every 4 hours by oral route as needed for 10 days. 07/03 completed Not Available Not Available Not Available OxyContin 10 mg tablet,cr ush resistant ,extended release Take 1 tablet(s ) every 12 hours by oral route as directed for 30 days. active Not Available Not Available No t Available Vitals Date Recorded Body height Body mass index (BMI) Body weight Oxygen saturation Oxygen saturation in Arterial blood by Pulse oximetry Body temperature Heart rate Systolic And Diastolic Provider Name and Address Organization Details Last Updated DateTime 5 168.91 cm 21.8 kg/m2 92617.5 31670 g 98 % 98 % 99 [degF] 100 /min 103/69 mm[Hg] Claudia [facility] 5 14:21:31 Date Recorded Body weight Oxygen saturation Oxygen saturation in Arterial blood by Pulse oximetry Body height Body temperature Heart rate Body mass index (BMI) Systolic And Diastolic Provider Name and Address Organization Details Last Updated DateTime 5 25721.1 36208 g 99 % 99 % 168.91 cm 98.2 [degF] 106 /min 24 kg/m2 123/78 mm[Hg] Gita Benson MA [facility] 5 15:14:12 Date Recorded Body weight Oxygen saturation Oxygen saturation in Arterial blood by Pulse oximetry Body height Body mass index (BMI) Body temperature Heart rate Systolic And Diastolic Provider Name and Address Organization Details Last Updated DateTime 5 49012.2 6313 g 96 % 96 % 168.91 cm 23.7 kg/m2 98.7 [degF] 107 /min 124/78 mm[Hg] Jacki hartmann MA [facility] 5 10:52:41 Date Recorded Body height Body weight Oxygen saturation Oxygen saturation in Arterial blood by Pulse oximetry Body mass index (BMI) Body temperature Heart rate Systolic And Diastolic Provider Name and Address Organization Details Last Updated DateTime 5 168.91 cm 68785.8 555 g 97 % 97 % 23.8 kg/m2 99.2 [degF] 104 /min 110/68 mm[Hg] Herman Rincon [facility] 5 10:57:04 Date Recorded Body weight Oxygen saturation Oxygen saturation in Arterial blood by Pulse oximetry Body height Body temperature Heart rate Body mass index (BMI) Systolic And Diastolic Provider Name and Address Organization Details Last Updated DateTime 5 21358.3 0128 g 99 % 99 % 168.91 cm 97.8 [degF] 99 /min 22.9 kg/m2 104/66 mm[Hg] Gita Benson MA [facility] 5 15:16:48 Social History Question Answer Notes LastModified by Organizat ion Details LastModified Time Tobacco Smoking Status Never Smoker Jacki Munoz MA null, [facility] 05/31/2014 08:24:47 Is Blood Transfusion Acceptable In An Emergency? Yes [email or web address] Information not available 05/25/2015 Sex: Unknown Functional Status None recorded. Mental Status None recorded. Family History Nothing Reported. Medical History No medical history recorded. Gynecological HistoryNo gynecological history recorded. Obstetrics History GPAL:G 0 P 0 0 0 0 Immunizations Vaccine Type Date Status Note Provider Nam e and Address Organization Details Recorded Time Tdap 10/05/2011 completed Not Available [facility] 03/30/2014 13:40:02 Past Encounters Encounter ID Performer Location Encounter Start Date Encounter Closed Date Diagnosis/Indication Diagnosis SNOMED-CT Code Diagnosis ICD10 Code Diagnosis IMO Codes Diagnosis Note [id number] [facility] [address] [facility] [place] [address] 04/12/2010 00:00:00 [id number] auto[facility]Comm erce [address] [facility] [place] [address] 09/25/2010 00:00:00 [id number] auto[employer]Comm erce [address] [facility] [place] [address] 12/01/2010 00:00:00 [id number] auto[facility]Comm erce [address] [facility] [place] [address] 01/17/2011 00:00:00 [id number] [address] [place] [address] 02/07/2011 00:00:00 [id number] [address] [place] [address] 03/23/2011 00:00:00 [id number] [address] [place] [address] 06/15/2011 00:00:00 [id number] auto[facility]Comm erce [address] [facility] [address] [place] [address] 06/29/2011 00:00:00 [id number] auto[facility]Comm erce [address] [facility] [address] [place] [address] 10/05/2011 00:00:00 [id number] autoEComm erce [address] [facility],[address] [place] [address] 12/03/2011 00:00:00 [id number] auto[facility]Comm erce [address] [facility] [place] [address] 01/30/2012 00:00:00 [id number] auto[facility]Comm erce [address] [facility] [place] [address] 02/08/2012 00:00:00 [id number] auto[facility]Comm erce [address] [facility] [place] [address] 08/16/2012 00:00:00 [id number] auto[facility]Comm erce [address] [facility] [place] [address] 10/10/2012 00:00:00 [id number] autoEComm erce [address] [facility] [address] [place] [address] 12/05/2012 00:00:00 [id number] autoEComm erce [address] [facility] [place] [address] 01/05/2013 00:00:00 [id number] auto[facility]Comm erce [address] [facility] [place] [address] 12/11/2013 00:00:00 [id number] auto[facility]Comm erce [address] [facility] [place] [address] 12/21/2013 00:00:00 [id number] Anahikb Garciaisaak [facility] Main Office [address] [facility] [address] [place] [address] 05/31/2014 08:12:02 05/31/2014 08:48:19 Acute pharyngitis 081778955 Rapid strep negative. C/w viral infection, recommend supportive tx. [id number] Anahi Garciaisaak [facility] Main Office [address] [facility] [place] [address] 06/23/2014 10:06:02 06/23/2014 11:26:29 Headache 95422709 New onset headaches, non-focal neuro exam, suspect migraine type but will eval with head CT. Anxiety state [id number] re quest for lorazepam before head CT [id number] Tomas Waggoner MD Main Office [address] [facility] [address] [place] [address] 06/26/2014 10:11:29 06/26/2014 10:59:46 Headache 40727568 [id number] [facility] Main Office [address] [facility] [address] [place] [address] 03/25/2015 14:10:33 03/25/2015 15:02:02 Low back pain 477979090 with radicular symptoms, she has been treating with flexeril and ibuprofen, ice and has seen a chiropract or x 1 week with no change in symptoms. Will rx short burst of prednisone , valium for muscle relaxer and Percocet to take as needed. Her chiropract or recommende d she have an MRI and she would like to get one done. [id number] Shante diana MD Main Office [address] [facility] [address] [place] [address] 04/08/2015 15:01:58 04/08/2015 15:51:24 Low back pain 217934798 severe, pt will see PSSP early next week, increase narcotic and if in a lot of pain can restart prednisone [id number] Loni Watkins [facility] Main Office [address] [facility] [address] [place], [place] [address] 04/15/2015 10:43:26 04/15/2015 11:25:38 Low back pain 681260326 Patient has felt no improvemen t in her symptoms and actually feels she is worsening. She agrees to see any neurosurge on at this point, we will work on getting her in with [facility], she will get a call in regards to the appointmen t. PSSP note requested from 04/11 visit. No driving, alcohol or work while on these medication s. Please stop taking Percocet. [id number] Loni Watkins [facility] Main Office [address] [facility] [address] [facility] [place] [place] [address] 04/29/2015 10:32:42 04/29/2015 11:44:54 Low back pain 685585521 Patient has felt no improvemen t in her symptoms and actually feels she is worsening. She saw Dr. Pandey 04/28 and will be scheduled for microdisce ctomy at some point in the near future, unknown date yet. Discussion with patient re: her symptoms, I explained that I understand she has legitimate pain and needs surgery and that not being able to take care of her son is very frustratin g, but, she is currently on a lot of pain medication . She states the current meds are not doing anything for her pain and she needs more, then states she is not leaving the office without pain medication today. Case discussed with Dr. Kasper, she also spoke with patient and tried to explain that she is on very strong pain med regimen. Patient again states that this regimen is doing absolutely nothing for her pain and she needs something more. Dr. Kasper explained to patient that she feels this regimen should be helping relieve at least some of her pain and no med will relieve the pain completely , but, she does not want her to suffer through the pain, will contact Dr. Pandey and get his recommenda tions on pain management for her specific neurosurgi kevin problem, we will contact the patient when recommenda tions have been obtained from Dr. Pandey. Kathrine is concerned she may need to return back for a prescripti on due to her amount of pain, she may have someone bulk picker prescripti on if necessary but she will need to call the office to inform us who designated person is. Call placed to Dr. Pandey's office, message left with his staff, awaiting call back. 12:[address] Kasper, she spoke with PA at Dr. Pandey's office who saw patient with him yesterday; she did not have any specific recommenda tions for managing patient's pre-op pain, she states patient could be switched to Percocet (she just came off this and is on dilaudid), or could try fentanyl patch instead of dilaudid. Dr. Kasper will keep patient on dilaudid and allow her to add an additional dose as needed throughout the day for a total of 2mg 5 times daily as needed, this will make her short on current prescripti on but she will need to have follow-up here in [address] Kasper for recheck and medication refill at that time. Patient informed of this by Dr. Kasper via phone. [id number] Shante diana MD Main Office [address] [facility] [address] [place] [address] 05/25/2015 14:37:36 05/25/2015 16:15:07 Pre-surgery evaluation [id number] pt is cleared for surgery, labs drawn, EKG reviewed without any concerns. I called and spoke to DR Pandey after this visit and asked him to either contact or have pt come in office for reeval due to worsening pain, now not walking for 3 days. I explained her exam is difficult due to pain but her strength in her LE appears intact, left achilles reflex mildly reduced but this is consistent with exam with DR Pandey (reviewed his exam). DR Pandey is aware of pts current status, he will contact pt and offer her another surgeon to do surgery sooner and discuss her care. Interverte bral disc prolapse [id number] on high dose narcotics, failed percocet, even on dilaudid 2mg 5 times a day pt feels her pain is undertreat ed. Health Concerns Section Related Observation LastModified by Organization Detai ls LastModified Time None Recorded Concern Status LastModified by Organization Details LastModified Time None Recorded Advance Directives Directive None Recorded Payers Insurance Date Sequence Insurance Name Policy Number Policy Quintanilla Covered Member ID Quintanilla Member ID Guarantor Name 05/25/2015 1 [facility] [id number] Kathrine Rai Chirgwin [id number] Kathrine Rai Chirgwin 05/25/2015 1 [facility] ([facility] [id number] Kathrine Rai Chirgwin [id number] Kathrine Rai Chirgwin Notes Date Note Type Note Provider Name and Address Organization Details Recorded Time 03/25/2015 text/html Musculoskeletal PainReported by PatientHPIFor location, patient reportspain radiating to the buttocksandpain radiating to the legs left. For quality, patient reportssharp. For severity, patient reportsworsening. For duration, patient reportspresent <1 month. For associated symptoms, patient reportsno fever,no tingling, andno numbness of the legs/feet.Patient feeling sciatic pain x 1 week, taking flexeril and ibuprofen, resting, icing without relief. She does feel like she has some weakness. She saw chiropractor and it has not improved, he thought she should get an MRI.ROS as noted in the HPI Shante lópez [facility] 03/25/2015 15:34:53 04/08/2015 text/html PT has an MRI showing left disc herniation, has a lot of left low back and buttocks pain into leg. She did a 10 day steroid treatment, it helped but pain returned as bad after she stopped it. PT is miserable, is on valium for spasm, percocet, motrin. Wants to see dR Alvarez and I recc PSSP. Shante lópez [facility] 04/10/2015 20:59:53 04/15/2015 text/html PT has an MRI showing left disc herniation- large paracentral protrusion with S1 nerve root impingement. Has a lot of left low back and buttocks pain now into thigh and down leg. Feels her symptoms are worsening. Saw PSSP 04/11 and will be having a cortisone injection on Wednesday 04/18. She has been taking valium, Percocet, lyrica, prednisone but feels symptoms are not well controlled. Per patient PSSP suggested she be on Oxycontin 10mg BID, Dilaudid 2mg q6 for breakthrough pain. PSSP thinks she will need surgery. Shante López lópez [facility] 04/15/2015 16:11:57 04/29/2015 text/html Generic HPI TemplateReported by PatientPT has an MRI showing left disc herniation- large paracentral disc protrusion with S1 nerve root impingement. Has a lot of left low back and buttocks pain now into thigh and down leg. Feels her symptoms are worsening. She has been taking valium 10 mg BID, dilaudid 2mg every 6 hours, lyrica 75mg BID and ambien for sleep, but feels symptoms are not well controlled. She saw Dr. Pandey on 04/28 and he is going to schedule surgery at some point soon, unknown date yet, still having severe symptoms, feels she cannot function, needs to care for her son. She did get an injection through [facility] 04/14/15 that lasted about 3 days and she states she was told it likely would not help her symptoms, and that she would be wasting her time if she went back. She is very frustrated and feels she needs more pain medications than what she is currently taking. States dilaudid, valium and lyrica are not even touching the pain currently. States she is not leaving the office without more pain medication.ROS as noted in the HPI Shante López lópez [facility] 04/30/2015 12:40:54 05/25/2015 text/html Pt is here for preoperative assessment for discetomy next week. Pt notes for the past 3 days she has had trouble walking, in office today she used the wheelchair to come up from her car. Pt is on dilaudid 2mg 5 times a day, valium 10mg 2 times a day. Also lyrica. I have contacted DR Pandey's office twice, once to discuss pain management due to the need for high dose narcotics (she failed percocet7.5mg ) and I had spoke with the Dr Pandey's PA. I then called last week, asked if surgery could be moved closer due to pts pain level. PT has not wanted to change to another neurosurgeon, wanted to stay with DR Pandey who added surgery time to do her surgery next week. PAin is the most in back of upper thigh. No foot drop noted, no bowel or bladder issues. Shante lópez [place] [facility] 05/29/2015 22:31:33 OBGyn Episode No OBEpisode recorded.
== END 2025-08-02 12:56 | disposition home or self-care (01) ==
LOC: HO.HMCFM 12:26
PROVIDERS: PCP Nurse Practitioner Family; Visit Provider Nurse Practitioner Family
DX: M25.561 Pain in right knee (principal); M62.830 Muscle spasm of back

== ENCOUNTER → 2025-08-02 12:25 | Outpatient (BNVA) | payer MEDICARE, MEDICAID, SELFPAY | PROVIDERS: PCP Nurse Practitioner Family; Visit Provider Nurse Practitioner Family | DX: M25.561 Pain in right knee (principal); M62.830 Muscle spasm of back | CPT/HCPCS: 96127; 99212 ==